=== PATIENT | female | born 1975 | race Caucasian/White ===

== ENCOUNTER 2017-03-13 08:34 | Emergency (ER) | payer SELFPAY ==
[2017-03-13 09:17] VITALS: BP 155/105
--- NOTE | 2017-03-13 09:43 | Emergency Department Report ---
Entered by RJ HYATT, acting as scribe for GIORGI PLAZA NP. Chief Complaint: Nausea/Vomiting/Diarrhea Stated Complaint: BACK PAIN/NAUSEA/VOMITING - HPI History of Present Illness: 41 y/o female, nontoxic, NAD, well developed, c/o back pain beginning 3 days ago. Associated nausea, vomiting. - ROS Review of Systems: GENERAL: The patient is a well-developed, well-nourished male in no apparent distress. Patient is alert and oriented x3. ABDOMEN: Soft, nontender, and nondistended. Positive bowel sounds. No hepatosplenomegaly was noted. No guarding or rebound tenderness. BACK: No spinal tenderness, Left CV tenderness, Right CVA tenderness - Exam Vital Signs: Vital Signs 03/13/17 09:12 Temperature 98.5 F Pulse Rate 99 H Respiratory 18 Rate Blood Pressure 155/105 O2 Sat by Pulse 100 Oximetry MSE screening note: Focused history and physical exam performed. Due to findings the following was ordered: UA, CBC, BMP, Serum test ED Disposition for MSE Condition: Stable This documentation as recorded by the scribe,RJ HYATT,accurately reflects the service I personally performed and the decisions made by ,GIORGI PLAZA, SUSAN.
== END 2017-03-13 09:15 | disposition left against medical advice (07) ==
LOC: ED 08:34
DX: M54.9 Dorsalgia, unspecified (principal); R11.2 Nausea with vomiting, unspecified; Z53.21 Procedure and treatment not carried out due to patient leaving prior to being seen by health care provider

== ENCOUNTER 2017-07-05 17:43 | Emergency (ER) | payer MEDICAID | END 2017-07-05 18:00 | disposition left against medical advice (07) | LOC: ED 17:43 | DX: R10.9 Unspecified abdominal pain (principal); R11.2 Nausea with vomiting, unspecified; Z53.21 Procedure and treatment not carried out due to patient leaving prior to being seen by health care provider ==

== ENCOUNTER 2017-07-27 05:55 | Emergency (ER) | payer MEDICAID ==
[2017-07-27] MEDS ORDERED: NACL 0.9% 1000 ML 1,000 ML IV ONE (07:21)
[2017-07-27] MEDS ORDERED: DILAUDID IV ONE ×3 (07:24→15:10)
--- NOTE | 2017-07-27 07:27 | Emergency Department Report ---
ED N/V/D HPI - General Chief complaint: Abdominal Pain Stated complaint: ABD PAIN, BACK PAIN, N/V Time Seen by Provider: 07/27/17 06:57 Source: patient Mode of arrival: Ambulatory Limitations: No Limitations - History of Present Illness Initial comments: 41-year-old female presents emergency department with complaint of abdominal pain. Patient is a morbidly obese female with a history of multiple medical problems here with chronic back pain and nausea vomiting. Patient states she's been unable to take any of her medications for the last 2 days her pain has been getting worse. Denies fevers chills. States that she's uncomfortable. MD complaint: nausea, vomiting -: Gradual Description of Vomiting: food contents Description of Diarrhea: water Associated Abdominal Pain: No (back pain) Radiation: none Improves with: none Worsens with: none Associated Symptoms: nausea/vomiting. denies: myalgias, chest pain, cough, diaphoresis, headaches, loss of appetite, malaise, rash, syncope - Related Data Home Medications Medication Instructions Recorded Confirmed Last Taken Lisinopril [Zestril TAB] 10 mg PO QDAY 05/19/14 11/24/16 05/18/14 Insulin NPH Hum/Reg Insulin Hm 30 unit SQ QAM 10/05/15 11/24/16 Unknown [HumuLIN 70-30 Vial] Insulin NPH Hum/Reg Insulin Hm 40 unit SQ QPM 10/05/15 11/24/16 Unknown [HumuLIN 70-30 Vial] Sertraline [Zoloft] 100 mg PO QDAY 10/05/15 11/24/16 Unknown methOCARBAMOL [Robaxin TAB] 500 mg PO BID 07/18/16 11/24/16 Unknown Previous Rx's Medication Instructions Recorded Last Taken Type Pantoprazole [Protonix TAB] 40 mg PO QDAY #30 tablet 09/06/16 Unknown Rx Labetalol [Normodyne TAB] 100 mg PO BID #60 tablet 09/09/16 Unknown Rx Ondansetron [Zofran Odt] 4 mg PO Q6H #14 tabdar 09/09/16 Unknown Rx Metoclopramide [Reglan] 10 mg PO TID PRN #20 tab 09/13/16 Unknown Rx Omeprazole Magnesium [PriLOSEC Otc] 20 mg PO QDAY #14 tablet 12/09/16 Unknown Rx Dicyclomine [Bentyl] 20 mg PO QID #30 tablet 01/28/17 Unknown Rx Promethazine [Phenergan TAB] 25 mg PO Q8HR PRN #20 tab 01/28/17 Unknown Rx Ondansetron [Zofran Odt] 4 mg PO Q6H #14 tab.rapdis 02/11/17 Unknown Rx ALBUTEROL NEB's [Proventil 0.083% 2.5 mg IH Q3HRT PRN #30 nebu 04/11/17 Unknown Rx NEBS] Insulin Aspart [NovoLOG Flexpen] 1 dose SQ AC #1 pen 04/11/17 Unknown Rx Insulin Detemir [Levemir] 5 units SUB-Q QAMDIAB #30 units 04/11/17 Unknown Rx Ondansetron [Zofran Oral Liq] 4 mg PO Q4H PRN #1 bottle 04/11/17 Unknown Rx Sodium Bicarbonate 650 mg PO BID #60 tablet 04/11/17 Unknown Rx oxyCODONE /ACETAMINOPHEN [Percocet 1 tab PO Q4H PRN #30 tablet 04/11/17 Unknown Rx 5/325 mg] Promethazine [Phenergan TAB] 25 mg PO Q6HR PRN #10 tab 07/27/17 Unknown Rx Allergies Allergy/AdvReac Type Severity Reaction Status Date / Time ketorolac tromethamine Allergy Unknown Verified 04/02/17 19:46 [From Toradol] meperidine HCl [From Demerol] Allergy Shortness Verified 04/02/17 19:46 of Breath ED Review of Systems ROS: Stated complaint: ABD PAIN, BACK PAIN, N/V Other details as noted in HPI Comment: All other systems reviewed and negative Constitutional: denies: chills, fever ENT: denies: ear pain, throat pain Respiratory: denies: cough, shortness of breath, wheezing Cardiovascular: denies: chest pain, palpitations Endocrine: no symptoms reported Gastrointestinal: denies: abdominal pain, nausea, diarrhea Genitourinary: denies: urgency, dysuria, discharge Musculoskeletal: denies: back pain, joint swelling, arthralgia Skin: denies: rash, lesions Neurological: denies: headache, weakness, paresthesias Psychiatric: denies: anxiety, depression Hematological/Lymphatic: denies: easy bleeding, easy bruising ED Past Medical Hx - Past Medical History Previous Medical History?: Yes Hx Hypertension: Yes Hx CVA: No Hx Heart Attack/AMI: No Hx Congestive Heart Failure: Yes Hx Diabetes: Yes Hx Deep Vein Thrombosis: No Hx Pulmonary Embolism: No Hx GERD: No Hx Liver Disease: No Hx Renal Disease: No Hx Sickle Cell Disease: No Hx Arthritis: No Hx Headaches / Migraines: No Hx Seizures: No Hx Kidney Stones: No Hx Psychiatric Treatment: No Hx Asthma: Yes Hx COPD: No Hx Dementia: No Hx HIV: No Additional medical history: spina bifida, Gastroparesis. obesity - Surgical History Past Surgical History?: Yes Hx Coronary Stent: No Hx Open Heart Surgery: No Hx Pacemaker: No Hx Internal Defibrillator: No Hx Cholecystectomy: Yes Hx Appendectomy: Yes Hx Breast Surgery: Yes (breast reduction) Additional Surgical History: Right chest port - Family History Family history: no significant - Social History Smoking Status: Never Smoker Substance Use Type: None - Medications Home Medications: Home Medications Medication Instructions Recorded Confirmed Last Taken Type Lisinopril [Zestril TAB] 10 mg PO QDAY 05/19/14 11/24/16 05/18/14 History Insulin NPH Hum/Reg Insulin Hm 30 unit SQ QAM 10/05/15 11/24/16 Unknown History [HumuLIN 70-30 Vial] Insulin NPH Hum/Reg Insulin Hm 40 unit SQ QPM 10/05/15 11/24/16 Unknown History [HumuLIN 70-30 Vial] Sertraline [Zoloft] 100 mg PO QDAY 10/05/15 11/24/16 Unknown History methOCARBAMOL [Robaxin TAB] 500 mg PO BID 07/18/16 11/24/16 Unknown History Pantoprazole [Protonix TAB] 40 mg PO QDAY #30 tablet 09/06/16 11/24/16 Unknown Rx Labetalol [Normodyne TAB] 100 mg PO BID #60 tablet 09/09/16 11/24/16 Unknown Rx Ondansetron [Zofran Odt] 4 mg PO Q6H #14 tabRafaelrapdis 09/09/16 11/24/16 Unknown Rx Metoclopramide [Reglan] 10 mg PO TID PRN #20 tab 09/13/16 11/24/16 Unknown Rx Omeprazole Magnesium [PriLOSEC Otc] 20 mg PO QDAY #14 tablet 12/09/16 Unknown Rx Dicyclomine [Bentyl] 20 mg PO QID #30 tablet 01/28/17 Unknown Rx Promethazine [Phenergan TAB] 25 mg PO Q8HR PRN #20 tab 01/28/17 Unknown Rx Ondansetron [Zofran Odt] 4 mg PO Q6H #14 tab.rapdis 02/11/17 Unknown Rx ALBUTEROL NEB's [Proventil 0.083% 2.5 mg IH Q3HRT PRN #30 nebu 04/11/17 Unknown Rx NEBS] Insulin Aspart [NovoLOG Flexpen] 1 dose SQ AC #1 pen 04/11/17 Unknown Rx Insulin Detemir [Levemir] 5 units SUB-Q QAMDIAB #30 units 04/11/17 Unknown Rx Ondansetron [Zofran Oral Liq] 4 mg PO Q4H PRN #1 bottle 04/11/17 Unknown Rx Sodium Bicarbonate 650 mg PO BID #60 tablet 04/11/17 Unknown Rx oxyCODONE /ACETAMINOPHEN [Percocet 1 tab PO Q4H PRN #30 tablet 04/11/17 Unknown Rx 5/325 mg] Promethazine [Phenergan TAB] 25 mg PO Q6HR PRN #10 tab 07/27/17 Unknown Rx ED Physical Exam - General Limitations: No Limitations General appearance: obese - Head Head exam: Present: atraumatic, normocephalic - Eye Eye exam: Present: normal appearance - ENT ENT exam: Present: mucous membranes moist - Neck Neck exam: Present: normal inspection - Respiratory Respiratory exam: Present: normal lung sounds bilaterally. Absent: respiratory distress, wheezes, rales - Cardiovascular Cardiovascular Exam: Present: regular rate, normal rhythm, normal heart sounds. Absent: systolic murmur, diastolic murmur, rubs, gallop - GI/Abdominal GI/Abdominal exam: Present: soft, distended, guarding, normal bowel sounds. Absent: tenderness, rebound, rigid - Extremities Exam Extremities exam: Present: normal inspection - Back Exam Back exam: Present: normal inspection - Neurological Exam Neurological exam: Present: alert, oriented X3 - Psychiatric Psychiatric exam: Present: normal affect, normal mood - Skin Skin exam: Present: warm, dry, intact, normal color. Absent: rash ED Course Vital Signs 07/27/17 07/27/17 07/27/17 06:00 07:50 08:00 Temperature 98.4 F 98.2 F Pulse Rate 89 100 H 112 H Respiratory 20 12 18 Rate Blood Pressure Blood Pressure 184/109 224/129 [Right] O2 Sat by Pulse 100 98 99 Oximetry 07/27/17 07/27/17 07/27/17 08:01 08:07 08:15 Temperature Pulse Rate 110 H 114 H Respiratory 12 18 13 Rate Blood Pressure 224/129 187/151 Blood Pressure [Right] O2 Sat by Pulse 100 100 100 Oximetry 07/27/17 07/27/17 07/27/17 08:31 08:45 09:00 Temperature Pulse Rate 95 H 94 H 91 H Respiratory 8 L 22 18 Rate Blood Pressure 170/108 170/108 144/86 Blood Pressure [Right] O2 Sat by Pulse 100 98 97 Oximetry 07/27/17 07/27/17 09:15 09:30 Temperature Pulse Rate 90 104 H Respiratory 17 11 L Rate Blood Pressure 144/86 156/127 Blood Pressure [Right] O2 Sat by Pulse 97 99 Oximetry ED Medical Decision Making - Lab Data Result diagrams: 07/27/17 13:27 07/27/17 13:27 Laboratory Results - last 24 hr 07/27/17 07/27/17 07/27/17 10:18 13:27 13:27 WBC 5.6 RBC 2.56 L Hgb 8.1 L Hct 24.8 L MCV 97 MCH 32 MCHC 33 RDW 17.0 H Plt Count 327 Lymph % (Auto) 27.2 [place] % (Auto) 5.8 Eos % (Auto) 1.0 Baso % (Auto) 0.2 Lymph # 1.5 [place] # 0.3 Eos # 0.1 Baso # 0.0 Seg Neutrophils % 65.8 Seg Neutrophils # 3.7 Sodium 142 Potassium 4.0 Chloride 106.4 Carbon Dioxide 24 Anion Gap 16 BUN 5 L Creatinine 1.1 Estimated GFR > 60 BUN/Creatinine Ratio 5 Glucose 109 H Lactic Acid Calcium 8.7 Total Bilirubin 0.20 Direct Bilirubin Indirect Bilirubin AST 9 ALT 7 Alkaline Phosphatase 91 Total Protein 6.6 Albumin 3.5 L Albumin/Globulin Ratio 1.1 Lipase 11 L HCG, Qual Urine Color Yellow Urine Turbidity Clear Urine pH 5.0 Ur Specific [place] 1.021 Urine Protein <15 mg/dl Urine Glucose (UA) Neg Urine Ketones Neg Urine Blood Neg Urine Nitrite Neg Urine Bilirubin Neg Urine Urobilinogen < 2.0 Ur Leukocyte Esterase Neg Urine WBC (Auto) 6.0 Urine RBC (Auto) 12.0 U Epithel Cells (Auto) 3.0 Urine Mucus Few 07/27/17 07/27/17 07/27/17 13:27 13:27 13:27 WBC RBC Hgb Hct MCV MCH MCHC RDW Plt Count Lymph % (Auto) [place] % (Auto) Eos % (Auto) Baso % (Auto) Lymph # [place] # Eos # Baso # Seg Neutrophils % Seg Neutrophils # Sodium Potassium Chloride Carbon Dioxide Anion Gap BUN Creatinine Estimated GFR BUN/Creatinine Ratio Glucose Lactic Acid 0.70 Calcium Total Bilirubin 0.20 Direct Bilirubin < 0.2 Indirect Bilirubin 0.0 AST 9 ALT 7 Alkaline Phosphatase 91 Total Protein 6.5 Albumin 3.4 L Albumin/Globulin Ratio 1.1 Lipase HCG, Qual Negative Urine Color Urine Turbidity Urine pH Ur Specific [place] Urine Protein Urine Glucose (UA) Urine Ketones Urine Blood Urine Nitrite Urine Bilirubin Urine Urobilinogen Ur Leukocyte Esterase Urine WBC (Auto) Urine RBC (Auto) U Epithel Cells (Auto) Urine Mucus - Medical Decision Making Morbidly obese 41-year-old female presents emergency Department with abdominal pain back pain nausea vomiting. Patient hasn't been able to take her meds for the last 2 days. Plenty treat her with IV pain meds IV fluids and IV antiemetics and will reassess after labs. At this point I do not feel the patient needs any advanced imaging. Patient's pain improved after 3 rounds of medication. Labs are at baseline. Plan to discharge patient home. She is comfortable with plan. Portions of this chart were dictated with dictation software. There may be dictation errors contained within this note. Critical care attestation.: If time is entered above; I have spent that time in minutes in the direct care of this critically ill patient, excluding procedure time. ED Disposition Clinical Impression: Nausea and vomiting in adult Disposition: DC-01 TO HOME OR SELFCARE Is pt being admited?: No Condition: Stable Instructions: Abdominal Pain (ED) Prescriptions: Promethazine [Phenergan TAB] 25 mg PO Q6HR PRN #10 tab PRN Reason: Nausea Referrals: PRIMARY CARE, [Primary Care Provider] - 3-5 Days
[2017-07-27] MEDS ORDERED: BENADRYL ONE ×2 (08:11→15:16)
[2017-07-27] MEDS: ZOFRAN IV PRN ×2 (08:15→15:30)
[2017-07-27] MEDS ORDERED: BENADRYL IV ONE ×2 (08:20→15:10)
[2017-07-27] MEDS ORDERED: TRIPLE ANTIBIOTIC TP ONE (10:13)
[2017-07-27 11:52] LABS: Bilirubin,Urine NEG (Negative); Blood,Urine NEG (Negative); Ketones,Urine NEG (Negative); Leukocyte Esterase,Urine NEG (Negative); Mucus,Urine FEW /HPF; Nitrite,Urine NEG (Negative); Protein,Urine <15 mg/dL mg/dL (Negative); Urobilinogen,Urine < 2.0 mg/dL (<2.0)
[2017-07-27 13:51] LABS: Basophils % (Auto) 0.2 % (0.0-1.8); Hematocrit 24.8 % (30.3-42.9); Hemoglobin 8.1 gm/dl (10.1-14.3); Mean Corpuscular HGB Conc 33 % (30-34); Mean Corpuscular Hemoglobin 32 pg (28-32); Mean Corpuscular Volume 97 fl (79-97); Platelet Count 327 K/mm3 (140-440); Red Blood Count 2.56 M/mm3 (3.65-5.03); White Blood Count 5.6 K/mm3 (4.5-11.0)
[2017-07-27 14:09] LABS: Alanine Aminotransferase 7 units/L (7-56); Albumin 3.4 g/dL (3.9-5); Albumin/Globulin Ratio 1.1 %; Alkaline Phosphatase 91 units/L (35-129); Total Protein 6.5 g/dL (6.3-8.2)
[2017-07-27 14:10] LABS: Bilirubin,Direct < 0.2 mg/dL (0-0.2)
[2017-07-27 14:11] LABS: Alanine Aminotransferase 7 units/L (7-56); Albumin 3.5 g/dL (3.9-5); Albumin/Globulin Ratio 1.1 %; Alkaline Phosphatase 91 units/L (35-129); Anion Gap 16 mmol/L; BUN/Creatinine Ratio 5; Blood Urea Nitrogen 5 mg/dL (7-17); Calcium 8.7 mg/dL (8.4-10.2); Carbon Dioxide 24 mmol/L (22-30); Chloride 106.4 mmol/L (98-107); Glucose 109 mg/dL (65-100); Lipase 11 units/L (13-60); Sodium 142 mmol/L (137-145); Total Protein 6.6 g/dL (6.3-8.2)
[2017-07-27] MEDS ORDERED: ZOFRAN IM ONE (15:10)
[2017-07-27] MEDS ORDERED: DILAUDID ONE (15:16)
[2017-07-27 16:35] VITALS: BP 138/82
== END 2017-07-27 16:45 | disposition home or self-care (01) ==
LOC: ED 05:55
DX: R11.2 Nausea with vomiting, unspecified (principal); I10 Essential (primary) hypertension; E11.9 Type 2 diabetes mellitus without complications; I50.9 Heart failure, unspecified; J45.909 Unspecified asthma, uncomplicated; E66.9 Obesity, unspecified; Z90.49 Acquired absence of other specified parts of digestive tract; Z88.8 Allergy status to other drugs, medicaments and biological substances
CPT/HCPCS: 36415; 80053; 80074; 81001; 82140; 83690; 84703; 85025; 96361; 96374; 96375; 96376; 99283; J1170; J1200; J2405; J7030; A6250

== ENCOUNTER 2017-08-09 09:00 | Emergency (ER) | payer MEDICAID ==
[2017-08-09 09:37] LABS: Basophils % (Auto) 0.1 % (0.0-1.8); Eosinophils % (Auto) 1.4 % (0.0-4.3); Hematocrit 26.8 % (30.3-42.9); Hemoglobin 8.7 gm/dl (10.1-14.3); Mean Corpuscular HGB Conc 32 % (30-34); Mean Corpuscular Hemoglobin 31 pg (28-32); Mean Corpuscular Volume 97 fl (79-97); Platelet Count 261 K/mm3 (140-440); Red Blood Count 2.76 M/mm3 (3.65-5.03); Red Cell Distribution Width 15.9 % (13.2-15.2); White Blood Count 5.6 K/mm3 (4.5-11.0)
[2017-08-09 09:50] LABS: Anion Gap 14 mmol/L; BUN/Creatinine Ratio 10; Blood Urea Nitrogen 11 mg/dL (7-17); Calcium 8.8 mg/dL (8.4-10.2); Carbon Dioxide 27 mmol/L (22-30); Chloride 100.4 mmol/L (98-107); Glucose 158 mg/dL (65-100); Potassium 4.1 mmol/L (3.6-5.0); Sodium 137 mmol/L (137-145)
[2017-08-09] MEDS ORDERED: DILAUDID IV ONE ×2 (12:21→14:23)
[2017-08-09] MEDS ORDERED: ZOFRAN IV ONE (12:21)
[2017-08-09] MEDS ORDERED: BENADRYL IV ONE (12:21)
--- NOTE | 2017-08-09 12:22 | Emergency Department Report ---
ED General Adult HPI - General Chief complaint: Nausea/Vomiting/Diarrhea Stated complaint: NAUSEA AND VOMITING,BACK PAIN Time Seen by Provider: 08/09/17 12:20 Source: patient Mode of arrival: Ambulatory Limitations: No Limitations - History of Present Illness Initial comments: Patient is a 41-year-old female past history of GERD, diabetes, hypertension morbid obesity who presents with severe lower back pain. Patient walked into the emergency department complaining of severe back pain. She states that her back pain has been worse since 08/03/2017. She says the back pain is severe it as a 10 out of 10. She also states that she's been nauseous and has been vomiting with this back pain. She states that the back pain radiates down both of her legs bilaterally nothing makes the back pain better or worse. She says symptoms have been ongoing on gradually for the last couple days. But now she states that pain is unbearable. Severity scale (0 -10): 10 - Related Data Home Medications Medication Instructions Recorded Confirmed Last Taken Lisinopril [Zestril TAB] 10 mg PO QDAY 05/19/14 11/24/16 05/18/14 Insulin NPH Hum/Reg Insulin Hm 30 unit SQ QAM 10/05/15 11/24/16 Unknown [HumuLIN 70-30 Vial] Insulin NPH Hum/Reg Insulin Hm 40 unit SQ QPM 10/05/15 11/24/16 Unknown [HumuLIN 70-30 Vial] Sertraline [Zoloft] 100 mg PO QDAY 10/05/15 11/24/16 Unknown methOCARBAMOL [Robaxin TAB] 500 mg PO BID 07/18/16 11/24/16 Unknown Previous Rx's Medication Instructions Recorded Last Taken Type Pantoprazole [Protonix TAB] 40 mg PO QDAY #30 tablet 09/06/16 Unknown Rx Labetalol [Normodyne TAB] 100 mg PO BID #60 tablet 09/09/16 Unknown Rx Ondansetron [Zofran Odt] 4 mg PO Q6H #14 tabdar 09/09/16 Unknown Rx Metoclopramide [Reglan] 10 mg PO TID PRN #20 tab 09/13/16 Unknown Rx Omeprazole Magnesium [PriLOSEC Otc] 20 mg PO QDAY #14 tablet 12/09/16 Unknown Rx Dicyclomine [Bentyl] 20 mg PO QID #30 tablet 01/28/17 Unknown Rx Promethazine [Phenergan TAB] 25 mg PO Q8HR PRN #20 tab 01/28/17 Unknown Rx Ondansetron [Zofran Odt] 4 mg PO Q6H #14 tab.rapdis 02/11/17 Unknown Rx ALBUTEROL NEB's [Proventil 0.083% 2.5 mg IH Q3HRT PRN #30 nebu 04/11/17 Unknown Rx NEBS] Insulin Aspart [NovoLOG Flexpen] 1 dose SQ AC #1 pen 04/11/17 Unknown Rx Insulin Detemir [Levemir] 5 units SUB-Q QAMDIAB #30 units 04/11/17 Unknown Rx Ondansetron [Zofran Oral Liq] 4 mg PO Q4H PRN #1 bottle 04/11/17 Unknown Rx Sodium Bicarbonate 650 mg PO BID #60 tablet 04/11/17 Unknown Rx oxyCODONE /ACETAMINOPHEN [Percocet 1 tab PO Q4H PRN #30 tablet 04/11/17 Unknown Rx 5/325 mg] Promethazine [Phenergan TAB] 25 mg PO Q6HR PRN #10 tab 07/27/17 Unknown Rx Promethazine [Phenergan TAB] 25 mg PO Q6HR PRN #30 tab 08/09/17 Unknown Rx Allergies Allergy/AdvReac Type Severity Reaction Status Date / Time ketorolac tromethamine Allergy Unknown Verified 04/02/17 19:46 [From Toradol] meperidine HCl [From Demerol] Allergy Shortness Verified 04/02/17 19:46 of Breath ED Review of Systems ROS: Stated complaint: NAUSEA AND VOMITING,BACK PAIN Other details as noted in HPI Constitutional: denies: chills, fever Eyes: denies: eye pain, eye discharge, vision change ENT: denies: ear pain, throat pain Respiratory: denies: cough, shortness of breath, wheezing Cardiovascular: denies: chest pain, palpitations Endocrine: no symptoms reported Gastrointestinal: nausea, vomiting, diarrhea Genitourinary: denies: urgency, dysuria, discharge Musculoskeletal: back pain Skin: denies: rash, lesions Neurological: denies: headache, weakness, paresthesias Psychiatric: denies: anxiety, depression Hematological/Lymphatic: denies: easy bleeding, easy bruising ED Past Medical Hx - Past Medical History Previous Medical History?: Yes Hx Hypertension: Yes Hx CVA: No Hx Heart Attack/AMI: No Hx Congestive Heart Failure: Yes Hx Diabetes: Yes Hx Deep Vein Thrombosis: No Hx Pulmonary Embolism: No Hx GERD: No Hx Liver Disease: No Hx Renal Disease: No Hx Sickle Cell Disease: No Hx Arthritis: No Hx Headaches / Migraines: No Hx Seizures: No Hx Kidney Stones: No Hx Psychiatric Treatment: No Hx Asthma: Yes Hx COPD: No Hx Dementia: No Hx HIV: No Additional medical history: spina bifida, Gastroparesis. obesity - Surgical History Past Surgical History?: Yes Hx Coronary Stent: No Hx Open Heart Surgery: No Hx Pacemaker: No Hx Internal Defibrillator: No Hx Cholecystectomy: Yes Hx Appendectomy: Yes Hx Breast Surgery: Yes (breast reduction) Additional Surgical History: Right chest port-discontinued - Social History Smoking Status: Never Smoker Substance Use Type: None - Medications Home Medications: Home Medications Medication Instructions Recorded Confirmed Last Taken Type Lisinopril [Zestril TAB] 10 mg PO QDAY 05/19/14 11/24/16 05/18/14 History Insulin NPH Hum/Reg Insulin Hm 30 unit SQ QAM 10/05/15 11/24/16 Unknown History [HumuLIN 70-30 Vial] Insulin NPH Hum/Reg Insulin Hm 40 unit SQ QPM 10/05/15 11/24/16 Unknown History [HumuLIN 70-30 Vial] Sertraline [Zoloft] 100 mg PO QDAY 10/05/15 11/24/16 Unknown History methOCARBAMOL [Robaxin TAB] 500 mg PO BID 07/18/16 11/24/16 Unknown History Pantoprazole [Protonix TAB] 40 mg PO QDAY #30 tablet 09/06/16 11/24/16 Unknown Rx Labetalol [Normodyne TAB] 100 mg PO BID #60 tablet 09/09/16 11/24/16 Unknown Rx Ondansetron [Zofran Odt] 4 mg PO Q6H #14 tabRafaelrapdis 09/09/16 11/24/16 Unknown Rx Metoclopramide [Reglan] 10 mg PO TID PRN #20 tab 09/13/16 11/24/16 Unknown Rx Omeprazole Magnesium [PriLOSEC Otc] 20 mg PO QDAY #14 tablet 12/09/16 Unknown Rx Dicyclomine [Bentyl] 20 mg PO QID #30 tablet 01/28/17 Unknown Rx Promethazine [Phenergan TAB] 25 mg PO Q8HR PRN #20 tab 01/28/17 Unknown Rx Ondansetron [Zofran Odt] 4 mg PO Q6H #14 tab.rapdis 02/11/17 Unknown Rx ALBUTEROL NEB's [Proventil 0.083% 2.5 mg IH Q3HRT PRN #30 nebu 04/11/17 Unknown Rx NEBS] Insulin Aspart [NovoLOG Flexpen] 1 dose SQ AC #1 pen 04/11/17 Unknown Rx Insulin Detemir [Levemir] 5 units SUB-Q QAMDIAB #30 units 04/11/17 Unknown Rx Ondansetron [Zofran Oral Liq] 4 mg PO Q4H PRN #1 bottle 04/11/17 Unknown Rx Sodium Bicarbonate 650 mg PO BID #60 tablet 04/11/17 Unknown Rx oxyCODONE /ACETAMINOPHEN [Percocet 1 tab PO Q4H PRN #30 tablet 04/11/17 Unknown Rx 5/325 mg] Promethazine [Phenergan TAB] 25 mg PO Q6HR PRN #10 tab 07/27/17 Unknown Rx Promethazine [Phenergan TAB] 25 mg PO Q6HR PRN #30 tab 08/09/17 Unknown Rx ED Physical Exam - General Limitations: No Limitations General appearance: in distress - Head Head exam: Present: atraumatic, normocephalic - Eye Eye exam: Present: normal appearance - ENT ENT exam: Present: mucous membranes moist - Neck Neck exam: Present: normal inspection - Respiratory Respiratory exam: Present: normal lung sounds bilaterally. Absent: respiratory distress - Cardiovascular Cardiovascular Exam: Present: regular rate, normal rhythm. Absent: systolic murmur, diastolic murmur, rubs, gallop - GI/Abdominal GI/Abdominal exam: Present: soft, normal bowel sounds - Extremities Exam Extremities exam: Present: normal inspection - Back Exam Back exam: Present: muscle spasm, paraspinal tenderness - Neurological Exam Neurological exam: Present: alert, oriented X3 - Psychiatric Psychiatric exam: Present: normal affect, normal mood - Skin Skin exam: Present: warm, dry, intact, normal color. Absent: rash ED Course Vital Signs 08/09/17 08/09/17 08/09/17 09:09 11:56 12:00 Temperature 98 F Pulse Rate 80 77 Respiratory 20 12 9 L Rate Blood Pressure 133/78 124/103 Blood Pressure [Right] O2 Sat by Pulse 100 Oximetry 08/09/17 08/09/17 08/09/17 12:12 12:16 12:30 Temperature 97.9 F Pulse Rate 85 85 89 Respiratory 24 18 12 Rate Blood Pressure 174/116 174/116 Blood Pressure 174/116 [Right] O2 Sat by Pulse 100 100 95 Oximetry 08/09/17 08/09/17 08/09/17 12:46 12:50 13:00 Temperature Pulse Rate 81 81 Respiratory 16 15 Rate Blood Pressure 174/116 174/116 Blood Pressure 144/86 [Right] O2 Sat by Pulse 98 98 Oximetry 08/09/17 08/09/17 08/09/17 13:16 13:30 13:46 Temperature Pulse Rate 78 80 79 Respiratory 15 16 13 Rate Blood Pressure 111/62 107/61 107/61 Blood Pressure [Right] O2 Sat by Pulse 97 96 100 Oximetry 08/09/17 08/09/17 08/09/17 14:00 14:18 15:15 Temperature 98.1 F Pulse Rate 76 79 Respiratory 12 19 19 Rate Blood Pressure 112/65 Blood Pressure 123/60 [Right] O2 Sat by Pulse 98 100 99 Oximetry - Reevaluation(s) Reevaluation #1: 08/09/17 15:57 Patient is better after second dose of Dilaudid I will send patient home with Phenergan discussed outpatient sugars upon. ED Medical Decision Making - Lab Data Result diagrams: 08/09/17 09:20 08/09/17 09:20 Labs 08/09/17 08/09/17 08/09/17 09:20 09:20 09:23 WBC 5.6 RBC 2.76 L Hgb 8.7 L Hct 26.8 L MCV 97 MCH 31 MCHC 32 RDW 15.9 H Plt Count 261 Lymph % (Auto) 25.0 [place] % (Auto) 6.0 Eos % (Auto) 1.4 Baso % (Auto) 0.1 Lymph # 1.4 [place] # 0.3 Eos # 0.1 Baso # 0.0 Seg Neutrophils % 67.5 Seg Neutrophils # 3.8 Sodium 137 Potassium 4.1 Chloride 100.4 Carbon Dioxide 27 Anion Gap 14 BUN 11 Creatinine 1.1 Estimated GFR > 60 BUN/Creatinine Ratio 10 Glucose 158 H POC Glucose 185 H Calcium 8.8 - Medical Decision Making Medical diagnosis: Lumbar sacral strain Differential diagnosis: Metabolic abnormality, pancreatitis, malingering, herniated disc I will give patient IV Dilaudid and IV Benadryl and CBC and CMP Patient's lab work is unremarkable patient's request another dose of IV Dilaudid and IV Benadryl. I will only give IV Dilaudid discussed with patient that she will need to go assess her symptoms are intermittent and not consistent with her history. I will send patient home with by mouth clinic. Patient agrees to plan an additional verbal discharge orders were given. Critical care attestation.: If time is entered above; I have spent that time in minutes in the direct care of this critically ill patient, excluding procedure time. 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 control service representative use Qualified Code(s): E11.9 - Type 2 diabetes mellitus without complications Obesity Qualifiers: Obesity type: due to excess calories Obesity classification: adult class 3 ( BMI >= 40) Serious obesity comorbidity presence: with serious comorbidity Body mass index: BMI 50.0-59.9 Qualified Code(s): E66.09 - Other obesity due to excess calories Disposition: DC-01 TO HOME OR SELFCARE Is pt being admited?: No Does the pt Need Aspirin: No Condition: Stable Instructions: Diabetes Mellitus Type 2 in Adults (ED), Low Back Strain (ED) Prescriptions: Promethazine [Phenergan TAB] 25 mg PO Q6HR PRN #30 tab PRN Reason: Nausea Referrals: PRIMARY CARE, [Primary Care Provider] - 3-5 Days
[2017-08-09 15:16] VITALS: BP 123/60
== END 2017-08-09 15:22 | disposition home or self-care (01) ==
LOC: ED 09:00
DX: M54.42 Lumbago with sciatica, left side (principal); R11.2 Nausea with vomiting, unspecified; E11.9 Type 2 diabetes mellitus without complications; E66.09 Other obesity due to excess calories; I10 Essential (primary) hypertension; J45.909 Unspecified asthma, uncomplicated; Z90.49 Acquired absence of other specified parts of digestive tract; Z79.4 Long term (current) use of insulin
CPT/HCPCS: 36415; 80048; 82962; 85025; 96374; 96375; 96376; 99283; J1170; J1200; J2405

== ENCOUNTER 2017-08-12 03:46 | Emergency (ER) | payer MEDICAID ==
[2017-08-12 04:01] VITALS: BP 176/93
[2017-08-12 06:39] LABS: Bilirubin,Urine NEG (Negative); Blood,Urine NEG (Negative); Ketones,Urine 20 mg/dL (Negative); Leukocyte Esterase,Urine NEG (Negative); Mucus,Urine FEW /HPF; Nitrite,Urine NEG (Negative); Urobilinogen,Urine < 2.0 mg/dL (<2.0); WBC,Urine < 1.0 /HPF (0.0-6.0)
== END 2017-08-12 04:27 | disposition left against medical advice (07) ==
LOC: ED 03:46
DX: R11.2 Nausea with vomiting, unspecified (principal); M54.5 Low back pain; Z53.21 Procedure and treatment not carried out due to patient leaving prior to being seen by health care provider
CPT/HCPCS: 81001; 82962

== ENCOUNTER 2017-08-13 06:36 | Emergency (ER) | payer MEDICAID | END 2017-08-13 08:21 | LOC: ED 06:36 | DX: R11.11 Vomiting without nausea (principal); M54.9 Dorsalgia, unspecified; Z53.21 Procedure and treatment not carried out due to patient leaving prior to being seen by health care provider ==

== ENCOUNTER 2017-08-16 05:21 | Emergency (ER) | payer MEDICAID ==
[2017-08-16 05:32] VITALS: BP 168/110
[2017-08-16 09:12] LABS: Bacteria,Urine 1+ /HPF (Negative); Bilirubin,Urine NEG (Negative); Blood,Urine LG (Negative); Ketones,Urine NEG (Negative); Leukocyte Esterase,Urine TR (Negative); Mucus,Urine FEW /HPF; Nitrite,Urine NEG (Negative); Urobilinogen,Urine < 2.0 mg/dL (<2.0)
[2017-08-16 09:19] LABS: RBC,Urine > 182.0 /HPF (0.0-6.0)
== END 2017-08-16 05:29 | disposition left against medical advice (07) ==
LOC: ED 05:21
DX: R10.9 Unspecified abdominal pain (principal); Z53.21 Procedure and treatment not carried out due to patient leaving prior to being seen by health care provider
CPT/HCPCS: 81001

== ENCOUNTER 2017-09-12 09:01 | Emergency (ER) | payer MEDICAID ==
[2017-09-12] MEDS ORDERED: BENADRYL IV ONE ×3 (12:06→18:04)
[2017-09-12] MEDS ORDERED: ZOFRAN IV ONE ×2 (12:06→14:29)
[2017-09-12] MEDS ORDERED: DILAUDID IV ONE ×3 (12:06→18:01)
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
[2017-09-12 15:50] LABS: Albumin 3.9 g/dL (3.9-5); Albumin/Globulin Ratio 1.1 %; Alkaline Phosphatase 106 units/L (35-129); Anion Gap 18 mmol/L; BUN/Creatinine Ratio 11; Blood Urea Nitrogen 16 mg/dL (7-17); Calcium 9.5 mg/dL (8.4-10.2); Carbon Dioxide 27 mmol/L (22-30); Chloride 100.4 mmol/L (98-107); Glucose 101 mg/dL (65-100); Lipase 16 units/L (13-60); Potassium 4.2 mmol/L (3.6-5.0); Sodium 141 mmol/L (137-145); Total Protein 7.6 g/dL (6.3-8.2)
[2017-09-12 15:51] LABS: Alanine Aminotransferase < 5 units/L (7-56)
[2017-09-12 15:57] LABS: Basophils % (Auto) 0.3 % (0.0-1.8); Eosinophils % (Auto) 1.1 % (0.0-4.3); Hematocrit 30.1 % (30.3-42.9); Hemoglobin 9.5 gm/dl (10.1-14.3); Mean Corpuscular HGB Conc 32 % (30-34); Mean Corpuscular Hemoglobin 30 pg (28-32); Mean Corpuscular Volume 94 fl (79-97); Platelet Count 269 K/mm3 (140-440); Red Cell Distribution Width 16.9 % (13.2-15.2); White Blood Count 5.6 K/mm3 (4.5-11.0)
[2017-09-12 17:17] VITALS: BP 110/74
== END 2017-09-12 16:25 | disposition home or self-care (01) ==
LOC: ED 09:01
DX: M54.5 Low back pain (principal); G89.29 Other chronic pain; E11.22 Type 2 diabetes mellitus with diabetic chronic kidney disease; I12.9 Hypertensive chronic kidney disease with stage 1 through stage 4 chronic kidney disease, or unspecified chronic kidney disease; N18.9 Chronic kidney disease, unspecified; D64.9 Anemia, unspecified; Z79.4 Long term (current) use of insulin; J45.909 Unspecified asthma, uncomplicated; E66.01 Morbid (severe) obesity due to excess calories; Z90.49 Acquired absence of other specified parts of digestive tract; Z98.890 Other specified postprocedural states; Z88.6 Allergy status to analgesic agent
CPT/HCPCS: 36415; 80053; 82962; 83690; 84703; 85025; 96374; 96375; 96376; 99283; J1170; J1200; J2405

== ENCOUNTER 2017-11-11 15:17 | Emergency (ER) | payer MEDICAID ==
[2017-11-11] MEDS ORDERED: ZOFRAN IV ONE (17:55)
[2017-11-11] MEDS ORDERED: NACL 0.9% 1000 ML 1,000 ML IV ONE ×2 (17:55→22:35)
[2017-11-11 19:35] LABS: Alanine Aminotransferase 8 units/L (7-56); Albumin 4.5 g/dL (3.9-5); BUN/Creatinine Ratio 18; Blood Urea Nitrogen 22 mg/dL (7-17); Calcium 9.5 mg/dL (8.4-10.2); Hemolysis Index 1; Lipase 12 units/L (13-60)
[2017-11-11 19:36] LABS: Basophils % (Auto) 0.4 % (0.0-1.8); Hematocrit 27.7 % (30.3-42.9); Hemoglobin 9.1 gm/dl (10.1-14.3); Lymphocytes # (Auto) 1.1 K/mm3 (1.2-5.4); Lymphocytes % (Auto) 11.2 % (13.4-35.0); Mean Corpuscular HGB Conc 33 % (30-34); Mean Corpuscular Hemoglobin 29 pg (28-32); Mean Corpuscular Volume 89 fl (79-97); Monocytes # (Auto) 0.3 K/mm3 (0.0-0.8); Monocytes % (Auto) 3.4 % (0.0-7.3); Platelet Count 446 K/mm3 (140-440); Red Blood Count 3.11 M/mm3 (3.65-5.03); Red Cell Distribution Width 16.8 % (13.2-15.2)
[2017-11-11] MEDS ORDERED: REGLAN IV ONE (20:31)
[2017-11-11] MEDS ORDERED: DILAUDID IV ONE ×3 (20:31→23:39)
--- NOTE | 2017-11-11 20:34 | Emergency Department Report ---
HPI - General Chief Complaint: Back Pain/Injury Time Seen by Provider: 11/11/17 20:10 - HPI HPI: 41 yo AA Willi presents to the ED via EMS from home with the complaint of a three day history of N/V, and back pain that has also kept her from getting any sleep. She says she usually takes Dilaudid and Benadryl at home but has run out of her pain meds and does not see her pain physician until next sunday. She has a past medical history of CHF, gastroparesis, diabetes, spina bifida. She says that the back pain is from the mid back down. She denies any trauma. She denies any problems with bowel or bladder, numbness or paresthesias or any neurological deficits. No recent travel or sick contacts at home. ED Past Medical Hx - Past Medical History Hx Hypertension: Yes Hx CVA: No Hx Heart Attack/AMI: No Hx Congestive Heart Failure: Yes Hx Diabetes: Yes Hx Deep Vein Thrombosis: No Hx Pulmonary Embolism: No Hx GERD: No Hx Liver Disease: No Hx Renal Disease: No Hx Sickle Cell Disease: No Hx Arthritis: No Hx Headaches / Migraines: No Hx Seizures: No Hx Kidney Stones: No Hx Psychiatric Treatment: No Hx Asthma: Yes Hx COPD: No Hx Dementia: No Hx HIV: No Additional medical history: spina bifida, Gastroparesis. morbid obesity, - Surgical History Hx Coronary Stent: No Hx Open Heart Surgery: No Hx Pacemaker: No Hx Internal Defibrillator: No Hx Cholecystectomy: Yes Hx Appendectomy: Yes Hx Breast Surgery: Yes (breast reduction) Additional Surgical History: Right chest port-discontinued - Social History Smoking Status: Never Smoker Substance Use Type: None - Medications Home Medications: Home Medications Medication Instructions Recorded Confirmed Last Taken Type Lisinopril [Zestril TAB] 10 mg PO QDAY 05/19/14 11/24/16 05/18/14 History Insulin NPH Hum/Reg Insulin Hm 30 unit SQ QAM 10/05/15 11/24/16 Unknown History [HumuLIN 70-30 Vial] Insulin NPH Hum/Reg Insulin Hm 40 unit SQ QPM 10/05/15 11/24/16 Unknown History [HumuLIN 70-30 Vial] Sertraline [Zoloft] 100 mg PO QDAY 10/05/15 11/24/16 Unknown History methOCARBAMOL [Robaxin TAB] 500 mg PO BID 07/18/16 11/24/16 Unknown History Pantoprazole [Protonix TAB] 40 mg PO QDAY #30 tablet 09/06/16 11/24/16 Unknown Rx Labetalol [Normodyne TAB] 100 mg PO BID #60 tablet 09/09/16 11/24/16 Unknown Rx Ondansetron [Zofran Odt] 4 mg PO Q6H #14 tab.rapdis 09/09/16 11/24/16 Unknown Rx Metoclopramide [Reglan] 10 mg PO TID PRN #20 tab 09/13/16 11/24/16 Unknown Rx Omeprazole Magnesium [PriLOSEC Otc] 20 mg PO QDAY #14 tablet. 12/09/16 Unknown Rx Dicyclomine [Bentyl] 20 mg PO QID #30 tablet 01/28/17 Unknown Rx Ondansetron [Zofran Odt] 4 mg PO Q6H #14 tab.rapdis 02/11/17 Unknown Rx ALBUTEROL NEB's [Proventil 0.083% 2.5 mg IH Q3HRT PRN #30 nebu 04/11/17 Unknown Rx NEBS] Insulin Aspart [NovoLOG Flexpen] 1 dose SQ AC #1 pen 04/11/17 Unknown Rx Insulin Detemir [Levemir] 5 units SUB-Q QAMDIAB #30 units 04/11/17 Unknown Rx Ondansetron [Zofran Oral Liq] 4 mg PO Q4H PRN #1 bottle 04/11/17 Unknown Rx Sodium Bicarbonate 650 mg PO BID #60 tablet 04/11/17 Unknown Rx oxyCODONE /ACETAMINOPHEN [Percocet 1 tab PO Q4H PRN #30 tablet 04/11/17 Unknown Rx 5/325 mg] Promethazine [Phenergan TAB] 25 mg PO Q6HR PRN #10 tab 07/27/17 Unknown Rx Promethazine [Phenergan TAB] 25 mg PO Q6HR PRN #30 tab 08/09/17 Unknown Rx Promethazine [Phenergan TAB] 25 mg PO Q6HR PRN #30 tab 09/12/17 Unknown Rx Promethazine [Phenergan TAB] 25 mg PO Q8HR PRN #12 tab 11/11/17 Unknown Rx ED Review of Systems ROS: Stated complaint: BACK PAIN Other details as noted in HPI Comment: All other systems reviewed and negative Constitutional: denies: chills, fever Eyes: denies: eye pain, eye discharge, vision change ENT: denies: ear pain, throat pain Respiratory: denies: cough, shortness of breath, wheezing Cardiovascular: denies: chest pain, palpitations Gastrointestinal: nausea, vomiting Genitourinary: denies: urgency, dysuria, discharge Musculoskeletal: back pain. denies: arthralgia Skin: denies: rash, lesions Neurological: denies: headache, weakness, paresthesias Physical Exam - Physical Exam Vital Signs: Vital Signs 11/11/17 11/11/17 11/11/17 15:20 17:21 19:02 Pulse Rate 118 H 113 H Respiratory 18 18 Rate Blood Pressure 204/128 Blood Pressure 147/102 [Left] O2 Sat by Pulse 97 100 Oximetry Physical Exam: GENERAL: The patient is well-developed well-nourished. HENT: Normocephalic. Atraumatic. Patient has moist mucous membranes. EYES: Extraocular motions are intact. Pupils equal reactive to light bilaterally. NECK: Supple. Trachea is midline. CHEST/LUNGS: Clear to auscultation. There is no respiratory distress noted. HEART/CARDIOVASCULAR: Regular. There is mild tachycardia. There is no murmur. ABDOMEN: Abdomen is soft, nontender. Patient has normal bowel sounds. Morbidly obese habitus. SKIN: Skin is warm and dry. NEURO: The patient is awake, alert, and oriented. The patient is cooperative. The patient has no focal neurologic deficits. The patient has normal speech. MUSCULOSKELETAL: There is no tenderness or deformity. There is no limitation range of motion. There is no evidence of acute injury. BACK: There is both midline and bilateral paraspinal tenderness to palpation of the lower thoracic and the lumbar back but no step-off, or deformity. ED Course Vital Signs 11/11/17 11/11/17 11/11/17 15:20 17:21 19:02 Pulse Rate 118 H 113 H Respiratory 18 18 Rate Blood Pressure 204/128 Blood Pressure 147/102 [Left] O2 Sat by Pulse 97 100 Oximetry ED Medical Decision Making - Lab Data Result diagrams: 11/11/17 19:00 11/11/17 19:00 - Medical Decision Making Patient presents with a few days of some nausea and vomiting and some back pain. She denies any problems with bowel or bladder, numbness or paresthesias or any neurological deficits. Therefore she is low suspicion for any of the emergent back condition such as cauda equina, epidural abscess or cord compression syndrome. The patient does have a history of gastroparesis but mostly only complains of the nausea and vomiting at this time and none of the abdominal pain. Labs are mostly unremarkable. She has some anemia but it is insistent with previous visits. There is no leukocytosis, electrolyte abnormalities, renal insufficiency or glucose of modalities. She was given some fluid, pain medication and antiemetics and eventually patient says she is feeling improved. Vital signs improved as well and has been stable including being afebrile. Patient was seen ambulatory out of the emergency department and did not show any instability while doing so. She has an appointment with her PCP and pain physician coming up in the next 1-2 days. She will return to the ER with any worsening of her symptoms or any acute distress. - Differential Diagnosis muscle strain, muscle spasm, viral syndrome, food poisoning Critical Care Time: No Critical care attestation.: If time is entered above; I have spent that time in minutes in the direct care of this critically ill patient, excluding procedure time. ED Disposition Clinical Impression: Nausea & vomiting Qualifiers: Vomiting type: unspecified Vomiting Intractability: non-intractable Qualified Code(s): R11.2 - Nausea with vomiting, unspecified Back pain Qualifiers: Back pain location: back pain in unspecified location Chronicity: unspecified Back pain laterality: bilateral Qualified Code(s): M54.9 - Dorsalgia, unspecified Anemia Qualifiers: Anemia type: unspecified type Qualified Code(s): D64.9 - Anemia, unspecified Hypertension Qualifiers: Hypertension type: essential hypertension Qualified Code(s): I10 - Essential ( primary) hypertension Disposition: DC-01 TO HOME OR SELFCARE Is pt being admited?: No Condition: Stable Instructions: Acute Nausea and Vomiting (ED), Back Pain (ED), Hypertension (ED) Additional Instructions: Please follow-up with your primary care physician and pain physician as previously scheduled. Return to the emergency Department with any worsening of your symptoms or any acute distress. Prescriptions: Promethazine [Phenergan TAB] 25 mg PO Q8HR PRN #12 tab PRN Reason: Nausea Referrals: PRIMARY CARE, [Primary Care Provider] - JENNY Time of Disposition: 23:57
[2017-11-11] MEDS ORDERED: BENADRYL ONE (22:32)
[2017-11-11] MEDS ORDERED: NACL 0.9% 1000 ML 1,000 ML ONE (22:33)
[2017-11-11] MEDS ORDERED: DILAUDID ONE (22:33)
[2017-11-11] MEDS ORDERED: BENADRYL IV ONE ×2 (22:35→23:39)
[2017-11-11 23:56] VITALS: BP 140/85
== END 2017-11-12 02:32 | disposition home or self-care (01) ==
LOC: ED 15:17
DX: R11.2 Nausea with vomiting, unspecified (principal); M54.9 Dorsalgia, unspecified; D64.9 Anemia, unspecified; I10 Essential (primary) hypertension; E11.9 Type 2 diabetes mellitus without complications
CPT/HCPCS: 36415; 80053; 83690; 84703; 85025; 93005; 93010; 96361; 96374; 96375; 96376; 99284; J1170; J1200; J2405; J2765; J7030

== ENCOUNTER 2017-11-24 11:37 | Emergency (ER) | payer MEDICAID ==
[2017-11-24] MEDS ORDERED: REGLAN IV ONE (12:01)
[2017-11-24] MEDS ORDERED: DILAUDID IV ONE (12:01)
--- NOTE | 2017-11-24 12:08 | Emergency Department Report ---
ED General Adult HPI - General Stated complaint: BACK PAIN/NAUSEA WEAKNESS Time Seen by Provider: 11/24/17 11:56 - History of Present Illness Initial comments: Patient is 41 years FEMALE morbidly obese, history of diabetes, hypertension, spina bifida. Patient presented to the ER with back pain nausea vomiting and diarrhea. Patient was seen here multiple times for the same complaint that usually resolve with Dilaudid and nausea medicine. Patient stated her symptoms started yesterday. Patient denied any fever, chest pain, headache or abdominal pain. No cough or shortness of breath. -: days(s) Location: back, abdomen Quality: dull Consistency: constant Associated Symptoms: nausea/vomiting. denies: confusion, chest pain, cough, diaphoresis, fever/chills, headaches, loss of appetite, malaise, rash, seizure, shortness of breath, syncope, weakness - Related Data Home Medications Medication Instructions Recorded Confirmed Last Taken Lisinopril [Zestril TAB] 10 mg PO QDAY 05/19/14 11/24/16 05/18/14 Insulin NPH Hum/Reg Insulin Hm 30 unit SQ QAM 10/05/15 11/24/16 Unknown [HumuLIN 70-30 Vial] Insulin NPH Hum/Reg Insulin Hm 40 unit SQ QPM 10/05/15 11/24/16 Unknown [HumuLIN 70-30 Vial] Sertraline [Zoloft] 100 mg PO QDAY 10/05/15 11/24/16 Unknown methOCARBAMOL [Robaxin TAB] 500 mg PO BID 07/18/16 11/24/16 Unknown Previous Rx's Medication Instructions Recorded Last Taken Type Pantoprazole [Protonix TAB] 40 mg PO QDAY #30 tablet 09/06/16 Unknown Rx Labetalol [Normodyne TAB] 100 mg PO BID #60 tablet 09/09/16 Unknown Rx Ondansetron [Zofran Odt] 4 mg PO Q6H #14 tabdar 09/09/16 Unknown Rx Metoclopramide [Reglan] 10 mg PO TID PRN #20 tab 09/13/16 Unknown Rx Omeprazole Magnesium [PriLOSEC Otc] 20 mg PO QDAY #14 tablet. 12/09/16 Unknown Rx Dicyclomine [Bentyl] 20 mg PO QID #30 tablet 01/28/17 Unknown Rx Ondansetron [Zofran Odt] 4 mg PO Q6H #14 tab.rapdis 02/11/17 Unknown Rx ALBUTEROL NEB's [Proventil 0.083% 2.5 mg IH Q3HRT PRN #30 nebu 04/11/17 Unknown Rx NEBS] Insulin Aspart [NovoLOG Flexpen] 1 dose SQ AC #1 pen 04/11/17 Unknown Rx Insulin Detemir [Levemir] 5 units SUB-Q QAMDIAB #30 units 04/11/17 Unknown Rx Ondansetron [Zofran Oral Liq] 4 mg PO Q4H PRN #1 bottle 04/11/17 Unknown Rx Sodium Bicarbonate 650 mg PO BID #60 tablet 04/11/17 Unknown Rx oxyCODONE /ACETAMINOPHEN [Percocet 1 tab PO Q4H PRN #30 tablet 04/11/17 Unknown Rx 5/325 mg] Promethazine [Phenergan TAB] 25 mg PO Q6HR PRN #10 tab 07/27/17 Unknown Rx Promethazine [Phenergan TAB] 25 mg PO Q6HR PRN #30 tab 08/09/17 Unknown Rx Promethazine [Phenergan TAB] 25 mg PO Q6HR PRN #30 tab 09/12/17 Unknown Rx Promethazine [Phenergan TAB] 25 mg PO Q8HR PRN #12 tab 11/11/17 Unknown Rx Ondansetron [Zofran Odt] 8 mg PO Q8HR PRN #14 tab.rapdis 11/24/17 Unknown Rx Promethazine [Phenergan TAB] 25 mg PO Q8HR PRN #30 tab 11/24/17 Unknown Rx oxyCODONE /ACETAMINOPHEN [Percocet 1 tab PO Q6HR PRN #10 tablet 11/24/17 Unknown Rx 5/325] Allergies Allergy/AdvReac Type Severity Reaction Status Date / Time ketorolac tromethamine Allergy Unknown Verified 08/16/17 05:28 [From Toradol] meperidine HCl [From Demerol] Allergy Shortness Verified 08/16/17 05:28 of Breath ED Review of Systems ROS: Stated complaint: BACK PAIN/NAUSEA WEAKNESS Other details as noted in HPI Comment: All other systems reviewed and negative Constitutional: denies: chills, fever Respiratory: denies: cough, orthopnea, shortness of breath Cardiovascular: denies: chest pain, palpitations, dyspnea on exertion, edema, paroxysmal nocturnal dyspnea Gastrointestinal: nausea, vomiting, diarrhea. denies: abdominal pain Genitourinary: denies: urgency, dysuria, frequency Musculoskeletal: back pain. denies: joint swelling, arthralgia Neurological: denies: headache, weakness, numbness, paresthesias, confusion, abnormal gait ED Past Medical Hx - Past Medical History Hx Hypertension: Yes Hx CVA: No Hx Heart Attack/AMI: No Hx Congestive Heart Failure: Yes Hx Diabetes: Yes Hx Deep Vein Thrombosis: No Hx Pulmonary Embolism: No Hx GERD: No Hx Liver Disease: No Hx Renal Disease: No Hx Sickle Cell Disease: No Hx Arthritis: No Hx Headaches / Migraines: No Hx Seizures: No Hx Kidney Stones: No Hx Psychiatric Treatment: No Hx Asthma: Yes Hx COPD: No Hx Dementia: No Hx HIV: No Additional medical history: spina bifida, Gastroparesis. morbid obesity, - Surgical History Hx Coronary Stent: No Hx Open Heart Surgery: No Hx Pacemaker: No Hx Internal Defibrillator: No Hx Cholecystectomy: Yes Hx Appendectomy: Yes Hx Breast Surgery: Yes (breast reduction) Additional Surgical History: Right chest port-discontinued - Social History Smoking Status: Never Smoker Substance Use Type: None - Medications Home Medications: Home Medications Medication Instructions Recorded Confirmed Last Taken Type Lisinopril [Zestril TAB] 10 mg PO QDAY 05/19/14 11/24/16 05/18/14 History Insulin NPH Hum/Reg Insulin Hm 30 unit SQ QAM 10/05/15 11/24/16 Unknown History [HumuLIN 70-30 Vial] Insulin NPH Hum/Reg Insulin Hm 40 unit SQ QPM 10/05/15 11/24/16 Unknown History [HumuLIN 70-30 Vial] Sertraline [Zoloft] 100 mg PO QDAY 10/05/15 11/24/16 Unknown History methOCARBAMOL [Robaxin TAB] 500 mg PO BID 07/18/16 11/24/16 Unknown History Pantoprazole [Protonix TAB] 40 mg PO QDAY #30 tablet 09/06/16 11/24/16 Unknown Rx Labetalol [Normodyne TAB] 100 mg PO BID #60 tablet 09/09/16 11/24/16 Unknown Rx Ondansetron [Zofran Odt] 4 mg PO Q6H #14 tab.rapdis 09/09/16 11/24/16 Unknown Rx Metoclopramide [Reglan] 10 mg PO TID PRN #20 tab 09/13/16 11/24/16 Unknown Rx Omeprazole Magnesium [PriLOSEC Otc] 20 mg PO QDAY #14 tablet. 12/09/16 Unknown Rx Dicyclomine [Bentyl] 20 mg PO QID #30 tablet 01/28/17 Unknown Rx Ondansetron [Zofran Odt] 4 mg PO Q6H #14 tab.rapdis 02/11/17 Unknown Rx ALBUTEROL NEB's [Proventil 0.083% 2.5 mg IH Q3HRT PRN #30 nebu 04/11/17 Unknown Rx NEBS] Insulin Aspart [NovoLOG Flexpen] 1 dose SQ AC #1 pen 04/11/17 Unknown Rx Insulin Detemir [Levemir] 5 units SUB-Q QAMDIAB #30 units 04/11/17 Unknown Rx Ondansetron [Zofran Oral Liq] 4 mg PO Q4H PRN #1 bottle 04/11/17 Unknown Rx Sodium Bicarbonate 650 mg PO BID #60 tablet 04/11/17 Unknown Rx oxyCODONE /ACETAMINOPHEN [Percocet 1 tab PO Q4H PRN #30 tablet 04/11/17 Unknown Rx 5/325 mg] Promethazine [Phenergan TAB] 25 mg PO Q6HR PRN #10 tab 07/27/17 Unknown Rx Promethazine [Phenergan TAB] 25 mg PO Q6HR PRN #30 tab 08/09/17 Unknown Rx Promethazine [Phenergan TAB] 25 mg PO Q6HR PRN #30 tab 09/12/17 Unknown Rx Promethazine [Phenergan TAB] 25 mg PO Q8HR PRN #12 tab 11/11/17 Unknown Rx Ondansetron [Zofran Odt] 8 mg PO Q8HR PRN #14 tab.rapdis 11/24/17 Unknown Rx Promethazine [Phenergan TAB] 25 mg PO Q8HR PRN #30 tab 11/24/17 Unknown Rx oxyCODONE /ACETAMINOPHEN [Percocet 1 tab PO Q6HR PRN #10 tablet 11/24/17 Unknown Rx 5/325] ED Physical Exam - General Limitations: No Limitations General appearance: alert, in no apparent distress - Head Head exam: Present: atraumatic, normocephalic, normal inspection - Eye Eye exam: Present: normal appearance, PERRL - ENT ENT exam: Present: normal exam, normal orophraynx, mucous membranes moist - Neck Neck exam: Present: normal inspection, full ROM. Absent: tenderness, meningismus, lymphadenopathy, thyromegaly - Respiratory Respiratory exam: Present: normal lung sounds bilaterally. Absent: respiratory distress, wheezes, rales, rhonchi, stridor, chest wall tenderness, accessory muscle use, decreased breath sounds, prolonged expiratory - Cardiovascular Cardiovascular Exam: Present: regular rate, normal rhythm, normal heart sounds - GI/Abdominal GI/Abdominal exam: Present: soft, normal bowel sounds. Absent: distended, tenderness, guarding, rebound, rigid, organomegaly, mass, bruit, pulsatile mass , hernia - Extremities Exam Extremities exam: Present: normal inspection, full ROM, normal capillary refill. Absent: tenderness, pedal edema, joint swelling, calf tenderness - Back Exam Back exam: Absent: tenderness, CVA tenderness (R), CVA tenderness (L), muscle spasm, paraspinal tenderness, vertebral tenderness - Neurological Exam Neurological exam: Present: alert, oriented X3, CN II-XII intact, normal gait - Psychiatric Psychiatric exam: Present: normal affect, normal mood - Skin Skin exam: Present: warm, intact, normal color. Absent: cyanosis, diaphoretic, erythema ED Course Vital Signs 11/24/17 11/24/17 11/24/17 12:08 12:12 12:37 Temperature 97.6 F Pulse Rate 103 H Respiratory 22 18 Rate Blood Pressure 162/103 O2 Sat by Pulse 96 Oximetry - Reevaluation(s) Reevaluation #1: 11/24/17 18:12 Patient stated that she is feeling better, no abdominal pain no vomiting. Reevaluation #2: 11/24/17 18:43 Patient stated that she is feeling much better. Patient denied any nausea vomiting. I informed about her CT abdomen and pelvis results and the need for follow-up. Patient is asking for Phenergan tablets. I advised patient to follow up with her primary care physician in the next 2-3 days. ED Medical Decision Making - Lab Data Result diagrams: 11/24/17 12:57 11/24/17 12:57 Critical care attestation.: If time is entered above; I have spent that time in minutes in the direct care of this critically ill patient, excluding procedure time. ED Disposition Clinical Impression: Abdominal pain, Nausea and vomiting in adult Disposition: DC-01 TO HOME OR SELFCARE Is pt being admited?: No Condition: Stable Instructions: Abdominal Pain (ED), Acute Nausea and Vomiting (ED), Back Pain ( ED) Prescriptions: Ondansetron [Zofran Odt] 8 mg PO Q8HR PRN #14 tab.rapdis PRN Reason: Nausea And Vomiting oxyCODONE /ACETAMINOPHEN [Percocet 5/325] 1 tab PO Q6HR PRN #10 tablet PRN Reason: Pain Promethazine [Phenergan TAB] 25 mg PO Q8HR PRN #30 tab PRN Reason: Nausea Referrals: PRIMARY CARE,MD [Primary Care Provider] - 3-5 Days
[2017-11-24 12:12] VITALS: BP 162/103
[2017-11-24 13:12] LABS: Basophils % (Auto) 0.1 % (0.0-1.8); Hematocrit 29.4 % (30.3-42.9); Hemoglobin 9.2 gm/dl (10.1-14.3); Lymphocytes # (Auto) 1.2 K/mm3 (1.2-5.4); Lymphocytes % (Auto) 15.8 % (13.4-35.0); Mean Corpuscular HGB Conc 31 % (30-34); Mean Corpuscular Hemoglobin 28 pg (28-32); Mean Corpuscular Volume 91 fl (79-97); Monocytes # (Auto) 0.6 K/mm3 (0.0-0.8); Monocytes % (Auto) 8.4 % (0.0-7.3); Platelet Count 375 K/mm3 (140-440); Red Blood Count 3.23 M/mm3 (3.65-5.03); Red Cell Distribution Width 17.3 % (13.2-15.2)
[2017-11-24 13:32] LABS: Albumin 4.2 g/dL (3.9-5); Calcium 9.6 mg/dL (8.4-10.2)
[2017-11-24] MEDS ORDERED: ZOFRAN IM ONE (14:31)
[2017-11-24] MEDS ORDERED: BENADRYL IM ONE (15:35)
[2017-11-24] MEDS ORDERED: DILAUDID IM ONE (15:35)
--- NOTE | 2017-11-24 18:21 | Cat Scan Report ---
FINAL REPORT PROCEDURE: CT ABDOMEN PELVIS WO CON TECHNIQUE: Computerized axial tomography of the abdomen and pelvis was performed without intravenous contrast. This study is performed without intravascular contrast material and its sensitivity for abdominal and pelvic pathology, including neoplasms, inflammation, abscess, free fluid, thrombosis, arterial dissection and infarction, is reduced compared with a contrast enhanced study. HISTORY: ABDOMINAL PAIN COMPARISON: No prior studies are available for comparison. FINDINGS: Visualized lower thorax: Unremarkable. Liver: Mild diffuse low attenuation is compatible with fatty infiltration. Spleen: Normal size and attenuation. Gallbladder and biliary system: There has been cholecystectomy. Pancreas: Normal. Adrenals: There is an intermediate density, indeterminate etiology, 17 millimeter right adrenal nodule. Kidneys: No hydronephrosis or urolithiasis bilaterally. GI tract: The appendix is not visualized. No bowel obstruction or acute inflammation is seen. Lymph nodes and mesentery: Normal. Vasculature: Normal. Bladder: Normal. Reproductive organs: 2.2 centimeter left ovarian cyst. Peritoneum: No free fluid. Musculoskeletal structures: No significant abnormality. Other: There is a fat containing anterior abdominal wall hernia. IMPRESSION: No bowel obstruction or acute inflammation is seen. The appendix is not identified. 2 centimeter left ovarian cyst. 17 millimeter right adrenal nodule.
== END 2017-11-24 19:00 | disposition home or self-care (01) ==
LOC: ED 11:37
DX: R10.9 Unspecified abdominal pain (principal); R11.2 Nausea with vomiting, unspecified; I10 Essential (primary) hypertension; J45.909 Unspecified asthma, uncomplicated
CPT/HCPCS: 36415; 74176; 80053; 83690; 85025; 96372; 96374; 99284; J1170; J1200; J2405

== ENCOUNTER 2017-11-30 09:42 | Emergency (ER) | payer MEDICAID | END 2017-11-30 10:31 | disposition left against medical advice (07) | LOC: ED 09:42 | DX: R10.9 Unspecified abdominal pain (principal); Z53.21 Procedure and treatment not carried out due to patient leaving prior to being seen by health care provider ==

== ENCOUNTER 2017-12-03 07:41 | Emergency (ER) | payer MEDICAID ==
[2017-12-03] MEDS ORDERED: DILAUDID IV ONE ×3 (07:54→10:35)
[2017-12-03] MEDS ORDERED: BENADRYL IV ONE (07:59)
--- NOTE | 2017-12-03 07:59 | Emergency Department Report ---
HPI - General Chief Complaint: Back Pain/Injury Time Seen by Provider: 12/03/17 07:52 - HPI HPI: 42-year-old female presents to the emergency department via EMS from home with the complaint of some mid to lower back pain, abdominal pain and nausea without vomiting going on for the past few days. The patient says that the back pain was so bad that she does lay down on the floor the past few days. She has a primary care physician and a pain physician but has not been able to see them secondary to her symptoms and has run out of pain medication. She has a past medical history of asthma, CHF, hypertension, spina bifida and gastroparesis. She denies any trauma. No numbness or paresthesias or any problems with bowel or bladder. ED Past Medical Hx - Past Medical History Previous Medical History?: Yes Hx Hypertension: Yes Hx CVA: No Hx Heart Attack/AMI: No Hx Congestive Heart Failure: Yes Hx Diabetes: Yes Hx Deep Vein Thrombosis: No Hx Pulmonary Embolism: No Hx GERD: No Hx Liver Disease: No Hx Renal Disease: No Hx Sickle Cell Disease: No Hx Arthritis: No Hx Headaches / Migraines: No Hx Seizures: No Hx Kidney Stones: No Hx Psychiatric Treatment: No Hx Asthma: Yes Hx COPD: No Hx Dementia: No Hx HIV: No Additional medical history: spina bifida, Gastroparesis. morbid obesity, - Surgical History Past Surgical History?: Yes Hx Coronary Stent: No Hx Open Heart Surgery: No Hx Pacemaker: No Hx Internal Defibrillator: No Hx Cholecystectomy: Yes Hx Appendectomy: Yes Hx Breast Surgery: Yes (breast reduction) Additional Surgical History: Right chest port-discontinued - Social History Smoking Status: Never Smoker Substance Use Type: None - Medications Home Medications: Home Medications Medication Instructions Recorded Confirmed Last Taken Type Lisinopril [Zestril TAB] 10 mg PO QDAY 05/19/14 11/24/16 05/18/14 History Insulin NPH Hum/Reg Insulin Hm 30 unit SQ QAM 10/05/15 11/24/16 Unknown History [HumuLIN 70-30 Vial] Insulin NPH Hum/Reg Insulin Hm 40 unit SQ QPM 10/05/15 11/24/16 Unknown History [HumuLIN 70-30 Vial] Sertraline [Zoloft] 100 mg PO QDAY 10/05/15 11/24/16 Unknown History methOCARBAMOL [Robaxin TAB] 500 mg PO BID 07/18/16 11/24/16 Unknown History Pantoprazole [Protonix TAB] 40 mg PO QDAY #30 tablet 09/06/16 11/24/16 Unknown Rx Labetalol [Normodyne TAB] 100 mg PO BID #60 tablet 09/09/16 11/24/16 Unknown Rx Ondansetron [Zofran Odt] 4 mg PO Q6H #14 tab.rapdis 09/09/16 11/24/16 Unknown Rx Metoclopramide [Reglan] 10 mg PO TID PRN #20 tab 09/13/16 11/24/16 Unknown Rx Omeprazole Magnesium [PriLOSEC Otc] 20 mg PO QDAY #14 tablet. 12/09/16 Unknown Rx Dicyclomine [Bentyl] 20 mg PO QID #30 tablet 01/28/17 Unknown Rx Ondansetron [Zofran Odt] 4 mg PO Q6H #14 tab.rapdis 02/11/17 Unknown Rx ALBUTEROL NEB's [Proventil 0.083% 2.5 mg IH Q3HRT PRN #30 nebu 04/11/17 Unknown Rx NEBS] Insulin Aspart [NovoLOG Flexpen] 1 dose SQ AC #1 pen 04/11/17 Unknown Rx Insulin Detemir [Levemir] 5 units SUB-Q QAMDIAB #30 units 04/11/17 Unknown Rx Ondansetron [Zofran Oral Liq] 4 mg PO Q4H PRN #1 bottle 04/11/17 Unknown Rx Sodium Bicarbonate 650 mg PO BID #60 tablet 04/11/17 Unknown Rx oxyCODONE /ACETAMINOPHEN [Percocet 1 tab PO Q4H PRN #30 tablet 04/11/17 Unknown Rx 5/325 mg] Promethazine [Phenergan TAB] 25 mg PO Q6HR PRN #10 tab 07/27/17 Unknown Rx Promethazine [Phenergan TAB] 25 mg PO Q6HR PRN #30 tab 08/09/17 Unknown Rx Promethazine [Phenergan TAB] 25 mg PO Q6HR PRN #30 tab 09/12/17 Unknown Rx Promethazine [Phenergan TAB] 25 mg PO Q8HR PRN #12 tab 11/11/17 Unknown Rx Ondansetron [Zofran Odt] 8 mg PO Q8HR PRN #14 tab.rapdis 11/24/17 Unknown Rx oxyCODONE /ACETAMINOPHEN [Percocet 1 tab PO Q6HR PRN #10 tablet 11/24/17 Unknown Rx 5/325] Promethazine [Phenergan TAB] 25 mg PO Q8HR PRN #16 tab 12/03/17 Unknown Rx ED Review of Systems ROS: Stated complaint: BACK PAIN Other details as noted in HPI Comment: All other systems reviewed and negative Constitutional: denies: chills, fever Eyes: denies: eye pain, eye discharge, vision change ENT: denies: ear pain, throat pain Respiratory: denies: cough, shortness of breath, wheezing Cardiovascular: denies: chest pain, palpitations Gastrointestinal: abdominal pain, nausea Genitourinary: denies: urgency, dysuria, discharge Musculoskeletal: back pain. denies: joint swelling Skin: denies: rash, lesions Neurological: denies: headache, weakness, paresthesias Physical Exam - Physical Exam Vital Signs: Vital Signs 12/03/17 07:45 Temperature 98.3 F Pulse Rate 90 Respiratory 18 Rate Blood Pressure 200/156 O2 Sat by Pulse 98 Oximetry Physical Exam: GENERAL: The patient is well-developed well-nourished. HENT: Normocephalic. Atraumatic. Patient has moist mucous membranes. EYES: Extraocular motions are intact. Pupils equal reactive to light bilaterally. NECK: Supple. Trachea is midline. CHEST/LUNGS: Clear to auscultation. There is no respiratory distress noted. HEART/CARDIOVASCULAR: Regular. There is no tachycardia. There is no murmur. ABDOMEN: Abdomen is soft. Mild generalized tenderness to palpation. No guarding. Morbidly obese habitus. Patient has normal bowel sounds. SKIN: Skin is warm and dry. NEURO: The patient is awake, alert, and oriented. The patient is cooperative. The patient has no focal neurologic deficits. The patient has normal speech. MUSCULOSKELETAL: There is no tenderness or deformity. There is no evidence of acute injury. ED Course Vital Signs 12/03/17 07:45 Temperature 98.3 F Pulse Rate 90 Respiratory 18 Rate Blood Pressure 200/156 O2 Sat by Pulse 98 Oximetry ED Medical Decision Making - Lab Data Result diagrams: 12/03/17 08:13 02/12/18 08:13 - Radiology Data Radiology results: image reviewed interpreted by me: Abdominal x-ray shows nonspecific nonobstructive bowel gas. - Medical Decision Making 42-year-old female who is well-known to me in this department presents with abdominal pain and back pain. She has chronic pain issues and both of these areas. However she was still evaluated fully in the main emergency department with physical exam, labs and imaging. Physical exam does not show any signs of a toxic or rigid abdomen and heart and lung sounds are normal to auscultation. Labs are unremarkable as well. No leukocytosis, electrolyte abnormalities, renal insufficiency and she has normal belly labs such as bilirubin, lipase and LFTs. Abdominal x-ray shows nonspecific nonobstructive bowel gas. She was given a few doses of pain medication and says she is feeling much better. She was seen ambulatory in the emergency department and did not appear unstable. She denies any problems with bowel or bladder, numbness or paresthesias and does not appear to have any of the emergent conditions such as cauda equina, epidural abscess or cord compression syndrome. She has pain medication at home that she can take. She has good follow-up with a primary care doctor and has been encouraged to see them in the next few days. She will return to the ER with any worsening of her symptoms or any acute distress. - Differential Diagnosis gastroparesis, colitis, viral syndrome, back spasm, sprain Critical care attestation.: If time is entered above; I have spent that time in minutes in the direct care of this critically ill patient, excluding procedure time. ED Disposition Clinical Impression: Abdominal pain Qualifiers: Abdominal location: generalized Qualified Code(s): R10.84 - Generalized abdominal pain Back pain Qualifiers: Back pain location: low back pain Chronicity: unspecified Back pain laterality : unspecified Sciatica presence: without sciatica Qualified Code(s): M54.5 - Low back pain Hypertension Qualifiers: Hypertension type: essential hypertension Qualified Code(s): I10 - Essential ( primary) hypertension Disposition: TO HOME OR SELFCARE Is pt being admited?: No Condition: Stable Instructions: Abdominal Pain (ED), Hypertension (ED), Back Pain (ED) Additional Instructions: Please follow-up with your primary care physician in the next few days. Return to the emergency Department with any worsening of your symptoms or any acute distress. You have been prescribed a medication that is sedating and therefore should not be taken prior to driving, working, and responsible for children and in no way should be mixed with alcohol of any quantity. Please try and stay away from foods that are high in salt and caffeinated products to help with your blood pressure. Keep a blood pressure log. Prescriptions: Promethazine [Phenergan TAB] 25 mg PO Q8HR PRN #16 tab PRN Reason: Nausea Referrals: PRIMARY CARE, [Primary Care Provider] - [facility] Time of Disposition: 11:02
[2017-12-03 08:47] LABS: Basophils % (Auto) 0.3 % (0.0-1.8); Eosinophils # (Auto) 0.1 K/mm3 (0.0-0.4); Hematocrit 28.8 % (30.3-42.9); Hemoglobin 9.2 gm/dl (10.1-14.3); Lymphocytes # (Auto) 2.7 K/mm3 (1.2-5.4); Lymphocytes % (Auto) 43.2 % (13.4-35.0); Mean Corpuscular HGB Conc 32 % (30-34); Mean Corpuscular Hemoglobin 28 pg (28-32); Mean Corpuscular Volume 89 fl (79-97); Monocytes # (Auto) 0.4 K/mm3 (0.0-0.8); Monocytes % (Auto) 5.9 % (0.0-7.3); Platelet Count 378 K/mm3 (140-440); Red Blood Count 3.24 M/mm3 (3.65-5.03); Red Cell Distribution Width 17.1 % (13.2-15.2)
[2017-12-03 09:00] LABS: Alanine Aminotransferase 5 units/L (7-56); Albumin 4.3 g/dL (3.9-5); BUN/Creatinine Ratio 8; Bilirubin,Direct < 0.2 mg/dL (0-0.2); Blood Urea Nitrogen 10 mg/dL (7-17); Calcium 9.1 mg/dL (8.4-10.2); Hemolysis Index 3; Lipase 15 units/L (13-60)
--- NOTE | 2017-12-03 10:00 | XRay Report ---
ABDOMEN, 2 views: History: Abdominal pain. Slightly limited exam secondary to body habitus. There is no evidence of free air beneath the diaphragms. The gas pattern within the abdomen is unremarkable. There is no evidence of bowel dilatation, significant air-fluid levels, or pathologic calcifications. Organ shadows are unremarkable. Cholecystectomy changes are noted. IMPRESSION: Unremarkable abdomen.
[2017-12-03 10:51] LABS: Bilirubin,Urine NEG (Negative); Blood,Urine NEG (Negative); Color,Urine Yellow (Yellow); Mucus,Urine 1+ /HPF; Nitrite,Urine NEG (Negative); Protein,Urine <15 mg/dL mg/dL (Negative)
[2017-12-03 11:04] VITALS: BP 110/87
== END 2017-12-03 11:13 | disposition home or self-care (01) ==
LOC: ED 07:41
DX: M54.5 Low back pain (principal); R11.0 Nausea; R10.9 Unspecified abdominal pain; E11.9 Type 2 diabetes mellitus without complications; I11.0 Hypertensive heart disease with heart failure; I50.9 Heart failure, unspecified; Z79.4 Long term (current) use of insulin
CPT/HCPCS: 36415; 74019; 80048; 80074; 81001; 82550; 83690; 84703; 85025; 96374; 96375; 96376; 99285; J1170; J1200

== ENCOUNTER 2017-12-08 05:33 | Emergency (ER) | payer MEDICAID ==
[2017-12-08 06:06] VITALS: BP 183/103
== END 2017-12-08 11:30 | disposition left against medical advice (07) ==
LOC: ED 05:33
DX: R10.9 Unspecified abdominal pain (principal); M54.9 Dorsalgia, unspecified; Z53.21 Procedure and treatment not carried out due to patient leaving prior to being seen by health care provider

== ENCOUNTER 2017-12-08 13:46 | Emergency (ER) | payer MEDICAID ==
[2017-12-08 13:53] VITALS: BP 169/108
[2017-12-08] MEDS ORDERED: NACL 0.9% 1000 ML 1,000 ML IV ONE (14:34)
[2017-12-08] MEDS ORDERED: ZOFRAN IV ONE ×2 (14:34→16:34)
[2017-12-08] MEDS ORDERED: MORPHINE IV ONE ×2 (14:34→16:34)
--- NOTE | 2017-12-08 14:34 | Emergency Department Report ---
Blank Doc - Documentation Documentation: Patient is a 42-year-old female with history of spina bifida who lives and GERD who is complaining of nausea vomiting for the past 3 days. Patient also takes Percocet for chronic pain and she is not had her medications in several days because of nausea vomiting. Patient is complaining of epigastric discomfort headache and gives nausea vomiting. Patient will be moved to the treatment area to get IV fluids nausea meds and check labs and be reassessed by the MLP
[2017-12-08] MEDS ORDERED: PEPCID IV ONE (14:35)
[2017-12-08] MEDS ORDERED: BENADRYL ONE (14:44)
[2017-12-08] MEDS ORDERED: BENADRYL IV ONE (14:53)
[2017-12-08 15:09] LABS: Basophils # (Auto) 0.1 K/mm3 (0.0-0.1); Basophils % (Auto) 0.7 % (0.0-1.8); Eosinophils % (Auto) 0.6 % (0.0-4.3); Hematocrit 28.3 % (30.3-42.9); Hemoglobin 8.8 gm/dl (10.1-14.3); Lymphocytes # (Auto) 1.6 K/mm3 (1.2-5.4); Lymphocytes % (Auto) 20.1 % (13.4-35.0); Mean Corpuscular HGB Conc 31 % (30-34); Mean Corpuscular Hemoglobin 29 pg (28-32); Mean Corpuscular Volume 91 fl (79-97); Monocytes # (Auto) 0.3 K/mm3 (0.0-0.8); Monocytes % (Auto) 3.7 % (0.0-7.3); Platelet Count 243 K/mm3 (140-440); Red Cell Distribution Width 17.1 % (13.2-15.2)
[2017-12-08 15:24] LABS: Calcium 9.1 mg/dL (8.4-10.2)
--- NOTE | 2017-12-08 16:00 | Emergency Department Report ---
ED Abdominal Pain HPI - General Chief Complaint: Back Pain/Injury Stated Complaint: BACK PAIN Time Seen by Provider: 12/08/17 14:33 Source: patient Mode of arrival: Ambulatory Limitations: No Limitations - History of Present Illness Initial Comments: 42-year-old female past medical history chronic abdominal pain, , GERD, spina bifida, chronic back pain,? Drug-seeking behavior presents with complaint of acute on chronic abdominal pain and lower back pain. Patient is awake alert and oriented 3. Denies any bladder or bowel incontinence. Denies any direct trauma to back or falls. Screening by Dr. Cassius turner MD Complaint: abdominal pain Onset/Timin -: week(s), Last night Location: periumbilical Severity scale (0 -10): 10 Improves With: nothing Worsens With: nothing - Related Data Home Medications Medication Instructions Recorded Confirmed Last Taken Lisinopril [Zestril TAB] 10 mg PO QDAY 05/19/14 11/24/16 05/18/14 Insulin NPH Hum/Reg Insulin Hm 30 unit SQ QAM 10/05/15 11/24/16 Unknown [HumuLIN 70-30 Vial] Insulin NPH Hum/Reg Insulin Hm 40 unit SQ QPM 10/05/15 11/24/16 Unknown [HumuLIN 70-30 Vial] Sertraline [Zoloft] 100 mg PO QDAY 10/05/15 11/24/16 Unknown methOCARBAMOL [Robaxin TAB] 500 mg PO BID 07/18/16 11/24/16 Unknown Previous Rx's Medication Instructions Recorded Last Taken Type Pantoprazole [Protonix TAB] 40 mg PO QDAY #30 tablet 09/06/16 Unknown Rx Labetalol [Normodyne TAB] 100 mg PO BID #60 tablet 09/09/16 Unknown Rx Ondansetron [Zofran Odt] 4 mg PO Q6H #14 tab.bhavnadis 09/09/16 Unknown Rx Metoclopramide [Reglan] 10 mg PO TID PRN #20 tab 09/13/16 Unknown Rx Omeprazole Magnesium [PriLOSEC Otc] 20 mg PO QDAY #14 tablet. 12/09/16 Unknown Rx Dicyclomine [Bentyl] 20 mg PO QID #30 tablet 01/28/17 Unknown Rx Ondansetron [Zofran Odt] 4 mg PO Q6H #14 tabdar 02/11/17 Unknown Rx ALBUTEROL NEB's [Proventil 0.083% 2.5 mg IH Q3HRT PRN #30 nebu 04/11/17 Unknown Rx NEBS] Insulin Aspart [NovoLOG Flexpen] 1 dose SQ AC #1 pen 04/11/17 Unknown Rx Insulin Detemir [Levemir] 5 units SUB-Q QAMDIAB #30 units 04/11/17 Unknown Rx Ondansetron [Zofran Oral Liq] 4 mg PO Q4H PRN #1 bottle 04/11/17 Unknown Rx Sodium Bicarbonate 650 mg PO BID #60 tablet 04/11/17 Unknown Rx oxyCODONE /ACETAMINOPHEN [Percocet 1 tab PO Q4H PRN #30 tablet 04/11/17 Unknown Rx 5/325 mg] Promethazine [Phenergan TAB] 25 mg PO Q6HR PRN #10 tab 07/27/17 Unknown Rx Promethazine [Phenergan TAB] 25 mg PO Q6HR PRN #30 tab 08/09/17 Unknown Rx Promethazine [Phenergan TAB] 25 mg PO Q6HR PRN #30 tab 09/12/17 Unknown Rx Promethazine [Phenergan TAB] 25 mg PO Q8HR PRN #12 tab 11/11/17 Unknown Rx Ondansetron [Zofran Odt] 8 mg PO Q8HR PRN #14 tab.rapdis 11/24/17 Unknown Rx oxyCODONE /ACETAMINOPHEN [Percocet 1 tab PO Q6HR PRN #10 tablet 11/24/17 Unknown Rx 5/325] Promethazine [Phenergan TAB] 25 mg PO Q8HR PRN #16 tab 12/03/17 Unknown Rx Famotidine [Pepcid] 20 mg PO BID PRN #30 tablet 12/08/17 Unknown Rx Ondansetron [Zofran Odt] 4 mg PO Q8H PRN #12 tab.rapdis 12/08/17 Unknown Rx Allergies Allergy/AdvReac Type Severity Reaction Status Date / Time ketorolac tromethamine Allergy Unknown Verified 08/16/17 05:28 [From Toradol] meperidine HCl [From Demerol] Allergy Shortness Verified 08/16/17 05:28 of Breath ED Review of Systems ROS: Stated complaint: BACK PAIN Other details as noted in HPI Constitutional: denies: chills, fever Eyes: denies: eye pain, eye discharge, vision change ENT: denies: ear pain, throat pain Respiratory: denies: cough, shortness of breath, wheezing Cardiovascular: denies: chest pain, palpitations Endocrine: no symptoms reported Gastrointestinal: abdominal pain (chronic intermittent abdominal pain). denies : nausea, diarrhea Genitourinary: denies: urgency, dysuria, discharge Musculoskeletal: denies: back pain, joint swelling, arthralgia Skin: denies: rash, lesions Neurological: denies: headache, weakness, paresthesias Psychiatric: denies: anxiety, depression Hematological/Lymphatic: denies: easy bleeding, easy bruising ED Past Medical Hx - Past Medical History Hx Hypertension: Yes Hx CVA: No Hx Heart Attack/AMI: No Hx Congestive Heart Failure: Yes Hx Diabetes: Yes Hx Deep Vein Thrombosis: No Hx Pulmonary Embolism: No Hx GERD: No Hx Liver Disease: No Hx Renal Disease: No Hx Sickle Cell Disease: No Hx Arthritis: No Hx Headaches / Migraines: No Hx Seizures: No Hx Kidney Stones: No Hx Psychiatric Treatment: No Hx Asthma: Yes Hx COPD: No Hx Dementia: No Hx HIV: No Additional medical history: spina bifida, Gastroparesis. morbid obesity, - Surgical History Hx Coronary Stent: No Hx Open Heart Surgery: No Hx Pacemaker: No Hx Internal Defibrillator: No Hx Cholecystectomy: Yes Hx Appendectomy: Yes Hx Breast Surgery: Yes (breast reduction) Additional Surgical History: Right chest port-discontinued - Social History Smoking Status: Never Smoker Substance Use Type: None - Medications Home Medications: Home Medications Medication Instructions Recorded Confirmed Last Taken Type Lisinopril [Zestril TAB] 10 mg PO QDAY 05/19/14 11/24/16 05/18/14 History Insulin NPH Hum/Reg Insulin Hm 30 unit SQ QAM 10/05/15 11/24/16 Unknown History [HumuLIN 70-30 Vial] Insulin NPH Hum/Reg Insulin Hm 40 unit SQ QPM 10/05/15 11/24/16 Unknown History [HumuLIN 70-30 Vial] Sertraline [Zoloft] 100 mg PO QDAY 10/05/15 11/24/16 Unknown History methOCARBAMOL [Robaxin TAB] 500 mg PO BID 07/18/16 11/24/16 Unknown History Pantoprazole [Protonix TAB] 40 mg PO QDAY #30 tablet 09/06/16 11/24/16 Unknown Rx Labetalol [Normodyne TAB] 100 mg PO BID #60 tablet 09/09/16 11/24/16 Unknown Rx Ondansetron [Zofran Odt] 4 mg PO Q6H #14 tab.rapdis 09/09/16 11/24/16 Unknown Rx Metoclopramide [Reglan] 10 mg PO TID PRN #20 tab 09/13/16 11/24/16 Unknown Rx Omeprazole Magnesium [PriLOSEC Otc] 20 mg PO QDAY #14 tablet.dr 12/09/16 Unknown Rx Dicyclomine [Bentyl] 20 mg PO QID #30 tablet 01/28/17 Unknown Rx Ondansetron [Zofran Odt] 4 mg PO Q6H #14 tab.rapdis 02/11/17 Unknown Rx ALBUTEROL NEB's [Proventil 0.083% 2.5 mg IH Q3HRT PRN #30 nebu 04/11/17 Unknown Rx NEBS] Insulin Aspart [NovoLOG Flexpen] 1 dose SQ AC #1 pen 04/11/17 Unknown Rx Insulin Detemir [Levemir] 5 units SUB-Q QAMDIAB #30 units 04/11/17 Unknown Rx Ondansetron [Zofran Oral Liq] 4 mg PO Q4H PRN #1 bottle 04/11/17 Unknown Rx Sodium Bicarbonate 650 mg PO BID #60 tablet 04/11/17 Unknown Rx oxyCODONE /ACETAMINOPHEN [Percocet 1 tab PO Q4H PRN #30 tablet 04/11/17 Unknown Rx 5/325 mg] Promethazine [Phenergan TAB] 25 mg PO Q6HR PRN #10 tab 07/27/17 Unknown Rx Promethazine [Phenergan TAB] 25 mg PO Q6HR PRN #30 tab 08/09/17 Unknown Rx Promethazine [Phenergan TAB] 25 mg PO Q6HR PRN #30 tab 09/12/17 Unknown Rx Promethazine [Phenergan TAB] 25 mg PO Q8HR PRN #12 tab 11/11/17 Unknown Rx Ondansetron [Zofran Odt] 8 mg PO Q8HR PRN #14 tab.rapdis 11/24/17 Unknown Rx oxyCODONE /ACETAMINOPHEN [Percocet 1 tab PO Q6HR PRN #10 tablet 11/24/17 Unknown Rx 5/325] Promethazine [Phenergan TAB] 25 mg PO Q8HR PRN #16 tab 12/03/17 Unknown Rx Famotidine [Pepcid] 20 mg PO BID PRN #30 tablet 12/08/17 Unknown Rx Ondansetron [Zofran Odt] 4 mg PO Q8H PRN #12 tab.rapdis 12/08/17 Unknown Rx ED Physical Exam - General Limitations: No Limitations General appearance: alert, in no apparent distress - Head Head exam: Present: atraumatic, normocephalic - Eye Eye exam: Present: normal appearance, PERRL, EOMI - ENT ENT exam: Present: mucous membranes moist - Neck Neck exam: Present: normal inspection - Respiratory Respiratory exam: Present: normal lung sounds bilaterally. Absent: respiratory distress - Cardiovascular Cardiovascular Exam: Present: regular rate, normal rhythm. Absent: systolic murmur, diastolic murmur, rubs, gallop - GI/Abdominal GI/Abdominal exam: Present: soft (abdomen obese, no discrete tenderness on palpation), normal bowel sounds - Extremities Exam Extremities exam: Present: normal inspection - Back Exam Back exam: Present: normal inspection - Neurological Exam Neurological exam: Present: alert, oriented X3 - Psychiatric Psychiatric exam: Present: normal affect, normal mood - Skin Skin exam: Present: warm, dry, intact, normal color. Absent: rash ED Course Vital Signs 12/08/17 13:49 Temperature 99 F Pulse Rate 98 H Respiratory 18 Rate Blood Pressure 169/108 O2 Sat by Pulse 100 Oximetry ED Medical Decision Making - Lab Data Result diagrams: 12/08/17 14:48 12/08/17 14:48 - Medical Decision Making A/P: Chronic abdominal pain, GERD symptoms 1-patient screen by Dr. Hammonds. As instructed by Dr. Hammonds I followed up blood work results. No significant abnormality on CBC or BMP. I reviewed this with Dr. Hammonds. Patient's hemoglobin and hematocrit at baseline and patient's creatinine at baseline. 2-patient is specifically requesting Dilaudid. She is exhibiting drug-seeking behavior and is adamant that she wants high-dose narcotics. 3-given patient's history and normal labs we'll discharge. Zofran when necessary, antacids when necessary 4- follow-up with primary care and GI Critical care attestation.: If time is entered above; I have spent that time in minutes in the direct care of this critically ill patient, excluding procedure time. ED Disposition Clinical Impression: Abdominal pain Qualifiers: Abdominal location: epigastric Qualified Code(s): R10.13 - Epigastric pain GERD (gastroesophageal reflux disease) Qualifiers: Esophagitis presence: with esophagitis Qualified Code(s): K21.0 - Gastro- esophageal reflux disease with esophagitis Disposition: TO HOME OR SELFCARE Is pt being admited?: No Does the pt Need Aspirin: No Condition: Stable Instructions: Gastroesophageal Reflux Disease (ED), Abdominal Pain (ED) Prescriptions: Famotidine [Pepcid] 20 mg PO BID PRN #30 tablet PRN Reason: Indigestion Ondansetron [Zofran Odt] 4 mg PO Q8H PRN #12 tab.rapdis PRN Reason: Nausea Referrals: [facility] [Provider Group] - 3-5 Days [facility] [Outside] - 3-5 Days Time of Disposition: 16:02
[2017-12-08] MEDS ORDERED: MORPHINE ONE (16:35)
== END 2017-12-08 16:44 | disposition home or self-care (01) ==
LOC: ED 13:46
DX: K21.0 Gastro-esophageal reflux disease with esophagitis (principal); R10.13 Epigastric pain; E11.9 Type 2 diabetes mellitus without complications; I50.9 Heart failure, unspecified; J45.909 Unspecified asthma, uncomplicated; Z90.49 Acquired absence of other specified parts of digestive tract; Z79.4 Long term (current) use of insulin; E66.01 Morbid (severe) obesity due to excess calories; I10 Essential (primary) hypertension; Z88.8 Allergy status to other drugs, medicaments and biological substances
CPT/HCPCS: 36415; 80048; 83690; 85025; 96361; 96374; 96375; 96376; 99283; J1200; J2270; J2405; J7030

== ENCOUNTER 2018-01-01 05:36 | Inpatient (IN) | payer MEDICAID ==
[2018-01-01] MEDS ORDERED: NARCAN 2 MG/2 ML IV ONE (07:31)
[2018-01-01] MEDS ORDERED: NACL 0.9% 1000 ML 1,000 ML IV ONE (07:31)
--- NOTE | 2018-01-01 07:37 | Emergency Department Report ---
ED Altered Mental Status HPI - General Chief Complaint: Altered Mental Status Stated Complaint: AMS Time Seen by Provider: 01/01/18 07:09 Source: family, EMS Mode of arrival: Stretcher Limitations: Altered Mental Status - History of Present Illness Initial Comments: Patient is 42 years old morbidly obese -[place] female with history of hypertension, chronic kidney disease, diabetes CHF and asthma. Patient presented for evaluation of altered mental status for the last 3 days. Per report patient has been acting confused and weak. He also stated that patient just started on morphine 15 mg and Benadryl. Patient is confused and not answering questions. MD Complaint: altered mental status, confusion, weakness -: Gradual, days(s) Severity: moderate Consistency of Symptoms: getting worse - Related Data Home Medications Medication Instructions Recorded Confirmed Last Taken Lisinopril [Zestril TAB] 10 mg PO QDAY 05/19/14 11/24/16 05/18/14 Insulin NPH Hum/Reg Insulin Hm 30 unit SQ QAM 10/05/15 11/24/16 Unknown [HumuLIN 70-30 Vial] Insulin NPH Hum/Reg Insulin Hm 40 unit SQ QPM 10/05/15 11/24/16 Unknown [HumuLIN 70-30 Vial] Sertraline [Zoloft] 100 mg PO QDAY 10/05/15 11/24/16 Unknown methOCARBAMOL [Robaxin TAB] 500 mg PO BID 07/18/16 11/24/16 Unknown Previous Rx's Medication Instructions Recorded Last Taken Type Pantoprazole [Protonix TAB] 40 mg PO QDAY #30 tablet 09/06/16 Unknown Rx Labetalol [Normodyne TAB] 100 mg PO BID #60 tablet 09/09/16 Unknown Rx Ondansetron [Zofran Odt] 4 mg PO Q6H #14 tab.bhavnadis 09/09/16 Unknown Rx Metoclopramide [Reglan] 10 mg PO TID PRN #20 tab 09/13/16 Unknown Rx Omeprazole Magnesium [PriLOSEC Otc] 20 mg PO QDAY #14 tablet. 12/09/16 Unknown Rx Dicyclomine [Bentyl] 20 mg PO QID #30 tablet 01/28/17 Unknown Rx Ondansetron [Zofran Odt] 4 mg PO Q6H #14 tab.milad 02/11/17 Unknown Rx ALBUTEROL NEB's [Proventil 0.083% 2.5 mg IH Q3HRT PRN #30 nebu 04/11/17 Unknown Rx NEBS] Detemir (Nf) [Levemir (Nf)] 5 units SUB-Q QAMDIAB #30 units 04/11/17 Unknown Rx Insulin Aspart [NovoLOG Flexpen] 1 dose SQ AC #1 pen 04/11/17 Unknown Rx Ondansetron [Zofran Oral Liq] 4 mg PO Q4H PRN #1 bottle 04/11/17 Unknown Rx Sodium Bicarbonate 650 mg PO BID #60 tablet 04/11/17 Unknown Rx oxyCODONE /ACETAMINOPHEN [Percocet 1 tab PO Q4H PRN #30 tablet 04/11/17 Unknown Rx 5/325 mg] Promethazine [Phenergan TAB] 25 mg PO Q6HR PRN #10 tab 07/27/17 Unknown Rx Promethazine [Phenergan TAB] 25 mg PO Q6HR PRN #30 tab 08/09/17 Unknown Rx Promethazine [Phenergan TAB] 25 mg PO Q6HR PRN #30 tab 09/12/17 Unknown Rx Promethazine [Phenergan TAB] 25 mg PO Q8HR PRN #12 tab 11/11/17 Unknown Rx Ondansetron [Zofran Odt] 8 mg PO Q8HR PRN #14 tab.rapdis 11/24/17 Unknown Rx oxyCODONE /ACETAMINOPHEN [Percocet 1 tab PO Q6HR PRN #10 tablet 11/24/17 Unknown Rx 5/325] Promethazine [Phenergan TAB] 25 mg PO Q8HR PRN #16 tab 12/03/17 Unknown Rx Famotidine [Pepcid] 20 mg PO BID PRN #30 tablet 12/08/17 Unknown Rx Ondansetron [Zofran Odt] 4 mg PO Q8H PRN #12 tab.rapdis 12/08/17 Unknown Rx Allergies Allergy/AdvReac Type Severity Reaction Status Date / Time ketorolac tromethamine Allergy Unknown Verified 08/16/17 05:28 [From Toradol] meperidine HCl [From Demerol] Allergy Shortness Verified 08/16/17 05:28 of Breath ED Review of Systems ROS: Stated complaint: AMS Other details as noted in HPI Comment: Unobtainable due to pts medical conditions ED Past Medical Hx - Past Medical History Previous Medical History?: Yes Hx Hypertension: Yes Hx CVA: No Hx Heart Attack/AMI: No Hx Congestive Heart Failure: Yes Hx Diabetes: Yes Hx Deep Vein Thrombosis: No Hx Pulmonary Embolism: No Hx GERD: No Hx Liver Disease: No Hx Renal Disease: No Hx Sickle Cell Disease: No Hx Arthritis: No Hx Headaches / Migraines: No Hx Seizures: No Hx Kidney Stones: No Hx Psychiatric Treatment: No Hx Asthma: Yes Hx COPD: No Hx Dementia: No Hx HIV: No Additional medical history: spina bifida, Gastroparesis. morbid obesity, - Surgical History Past Surgical History?: Yes Hx Coronary Stent: No Hx Open Heart Surgery: No Hx Pacemaker: No Hx Internal Defibrillator: No Hx Cholecystectomy: Yes Hx Appendectomy: Yes Hx Breast Surgery: Yes (breast reduction) Additional Surgical History: Right chest port-discontinued - Social History Smoking Status: Never Smoker Substance Use Type: None - Medications Home Medications: Home Medications Medication Instructions Recorded Confirmed Last Taken Type Lisinopril [Zestril TAB] 10 mg PO QDAY 05/19/14 11/24/16 05/18/14 History Insulin NPH Hum/Reg Insulin Hm 30 unit SQ QAM 10/05/15 11/24/16 Unknown History [HumuLIN 70-30 Vial] Insulin NPH Hum/Reg Insulin Hm 40 unit SQ QPM 10/05/15 11/24/16 Unknown History [HumuLIN 70-30 Vial] Sertraline [Zoloft] 100 mg PO QDAY 10/05/15 11/24/16 Unknown History methOCARBAMOL [Robaxin TAB] 500 mg PO BID 07/18/16 11/24/16 Unknown History Pantoprazole [Protonix TAB] 40 mg PO QDAY #30 tablet 09/06/16 11/24/16 Unknown Rx Labetalol [Normodyne TAB] 100 mg PO BID #60 tablet 09/09/16 11/24/16 Unknown Rx Ondansetron [Zofran Odt] 4 mg PO Q6H #14 tab.rapdis 09/09/16 11/24/16 Unknown Rx Metoclopramide [Reglan] 10 mg PO TID PRN #20 tab 09/13/16 11/24/16 Unknown Rx Omeprazole Magnesium [PriLOSEC Otc] 20 mg PO QDAY #14 tablet. 12/09/16 Unknown Rx Dicyclomine [Bentyl] 20 mg PO QID #30 tablet 01/28/17 Unknown Rx Ondansetron [Zofran Odt] 4 mg PO Q6H #14 tab.rapdis 02/11/17 Unknown Rx ALBUTEROL NEB's [Proventil 0.083% 2.5 mg IH Q3HRT PRN #30 nebu 04/11/17 Unknown Rx NEBS] Detemir (Nf) [Levemir (Nf)] 5 units SUB-Q QAMDIAB #30 units 04/11/17 Unknown Rx Insulin Aspart [NovoLOG Flexpen] 1 dose SQ AC #1 pen 04/11/17 Unknown Rx Ondansetron [Zofran Oral Liq] 4 mg PO Q4H PRN #1 bottle 04/11/17 Unknown Rx Sodium Bicarbonate 650 mg PO BID #60 tablet 04/11/17 Unknown Rx oxyCODONE /ACETAMINOPHEN [Percocet 1 tab PO Q4H PRN #30 tablet 04/11/17 Unknown Rx 5/325 mg] Promethazine [Phenergan TAB] 25 mg PO Q6HR PRN #10 tab 07/27/17 Unknown Rx Promethazine [Phenergan TAB] 25 mg PO Q6HR PRN #30 tab 08/09/17 Unknown Rx Promethazine [Phenergan TAB] 25 mg PO Q6HR PRN #30 tab 09/12/17 Unknown Rx Promethazine [Phenergan TAB] 25 mg PO Q8HR PRN #12 tab 11/11/17 Unknown Rx Ondansetron [Zofran Odt] 8 mg PO Q8HR PRN #14 tab.rapdis 11/24/17 Unknown Rx oxyCODONE /ACETAMINOPHEN [Percocet 1 tab PO Q6HR PRN #10 tablet 11/24/17 Unknown Rx 5/325] Promethazine [Phenergan TAB] 25 mg PO Q8HR PRN #16 tab 12/03/17 Unknown Rx Famotidine [Pepcid] 20 mg PO BID PRN #30 tablet 12/08/17 Unknown Rx Ondansetron [Zofran Odt] 4 mg PO Q8H PRN #12 tab.rapdis 12/08/17 Unknown Rx ED Physical Exam - General Limitations: Altered Mental Status General appearance: alert, in no apparent distress - Head Head exam: Present: atraumatic, normocephalic, normal inspection - Eye Eye exam: Present: normal appearance Pupils: Present: miosis - ENT ENT exam: Present: normal exam, normal orophraynx - Neck Neck exam: Present: normal inspection - Respiratory Respiratory exam: Present: rales, rhonchi, decreased breath sounds. Absent: stridor, prolonged expiratory - Cardiovascular Cardiovascular Exam: Present: regular rate, normal rhythm, normal heart sounds - GI/Abdominal GI/Abdominal exam: Present: soft. Absent: distended, tenderness, guarding, rebound, rigid, organomegaly, mass, bruit, pulsatile mass - Extremities Exam Extremities exam: Present: normal inspection, full ROM, normal capillary refill - Back Exam Back exam: Present: normal inspection, full ROM. Absent: tenderness, CVA tenderness (L) - Neurological Exam Neurological exam: Present: altered - Skin Skin exam: Present: warm, intact, normal color ED Course Vital Signs 01/01/18 01/01/18 01/01/18 05:51 08:00 08:30 Temperature 97.9 F Pulse Rate 94 H 98 H 101 H Respiratory 18 14 21 Rate Blood Pressure 120/97 Blood Pressure 118/56 104/62 [Right] O2 Sat by Pulse 99 98 100 Oximetry - Reevaluation(s) Reevaluation #1: 01/01/18 08:[address] Rios, I presented the patient to him, about potassium of 8.[address] Rios advised to admit the patient is a hospitalist and he will see how. 01/01/18 09:01: Discussed with Cathy DUNNE with Dr. Sanchez and he stated that he will inform Dr. Sanchez. - Lab Data Result diagrams: 01/01/18 07:48 01/01/18 07:48 Lab Results 01/01/18 01/01/18 01/01/18 Range/Units 07:48 07:48 07:48 WBC 4.3 L (4.5-11.0) K/mm3 RBC 3.33 L (3.65-5.03) M/mm3 Hgb 9.2 L (10.1-14.3) gm/dl Hct 28.5 L (30.3-42.9) % MCV 86 (79-97) fl MCH 28 (28-32) pg MCHC 32 (30-34) % RDW 17.7 H (13.2-15.2) % Plt Count 353 (140-440) K/mm3 Curry % (Auto) Patient Support Specialist Add Manual Diff Complete Total Counted 100 Seg Neuts % (Manual) 51.0 (40.0-70.0) % Band Neutrophils % 13 % Lymphocytes % (Manual) 19.0 (13.4-35.0) % Reactive Lymphs % (Man) 0 % Monocytes % (Manual) 17 H (0.0-7.3) % Eosinophils % (Manual) 0 (0.0-4.3) % Basophils % (Manual) 0 (0.0-1.8) % Metamyelocytes % 0 % Myelocytes % 0 % Promyelocytes % 0 % Blast Cells % 0 % Nucleated RBC % Not Reportable Seg Neutrophils # Man 2.2 (1.8-7.7) K/mm3 Band Neutrophils # 0.5 K/mm3 Lymphocytes # (Manual) 0.8 L (1.2-5.4) K/mm3 Abs React Lymphs (Man) 0.0 K/mm3 Monocytes # (Manual) 0.7 (0.0-0.8) K/mm3 Eosinophils # (Manual) 0.0 (0.0-0.4) K/mm3 Basophils # (Manual) 0.0 (0.0-0.1) K/mm3 Metamyelocytes # 0.0 K/mm3 Myelocytes # 0.0 K/mm3 Promyelocytes # 0.0 K/mm3 Blast Cells # 0.0 K/mm3 WBC Morphology Not Reportable Hypersegmented Neuts Not Reportable Hyposegmented Neuts Not Reportable Hypogranular Neuts Not Reportable Smudge Cells Not Reportable Toxic Granulation Not Reportable Toxic Vacuolation Not Reportable Dohle Bodies Not Reportable Pelger-Huet Anomaly Not Reportable Juliet Rods Not Reportable Platelet Estimate Not Reportable Clumped Platelets Not Reportable Plt Clumps, EDTA Not Reportable Large Platelets Not Reportable Giant Platelets Not Reportable Platelet Satelliting Not Reportable Plt Morphology Comment Not Reportable RBC Morphology Not Reportable Dimorphic RBCs Not Reportable Polychromasia Not Reportable Hypochromasia Not Reportable Poikilocytosis Not Reportable Anisocytosis 1+ Microcytosis Not Reportable Macrocytosis Not Reportable Spherocytes Not Reportable Pappenheimer Bodies Not Reportable Sickle Cells Not Reportable Target Cells Not Reportable Tear Drop Cells Not Reportable Ovalocytes Not Reportable Helmet Cells Not Reportable Adam-[place] Bodies Not Reportable [place] Rings Not Reportable Dion Cells Not Reportable Bite Cells Not Reportable Crenated Cell Not Reportable Elliptocytes Not Reportable Acanthocytes (Spur) Not Reportable Rouleaux Not Reportable Hemoglobin C Crystals Not Reportable Schistocytes Not Reportable Malaria parasites Not Reportable Gume Bodies Not Reportable Hem Pathologist Commnt No PT (12.2-14.9) Sec. INR (0.87-1.13) APTT (24.2-36.6) Sec. Sodium 131 L (137-145) mmol/L Potassium 8.6 H* (3.6-5.0) mmol/L Chloride 90.8 L (98-107) mmol/L Carbon Dioxide 12 L (22-30) mmol/L Anion Gap 37 mmol/L BUN 127 H (7-17) mg/dL Creatinine 9.6 H (0.7-1.2) mg/dL Estimated GFR 5 ml/min BUN/Creatinine Ratio 13 % Glucose 189 H (65-100) mg/dL POC Glucose (70-105) Lactic Acid 1.30 (0.7-2.0) mmol/L Calcium 7.4 L (8.4-10.2) mg/dL Total Bilirubin 0.30 (0.1-1.2) mg/dL AST 7 (5-40) units/L ALT 8 (7-56) units/L Alkaline Phosphatase 127 (35-129) units/L Ammonia (25-60) umol/L Troponin T (0.00-0.029) ng/mL NT-Pro-B Natriuret Pep (0-450) pg/mL Total Protein 7.4 (6.3-8.2) g/dL Albumin 2.9 L (3.9-5) g/dL Albumin/Globulin Ratio 0.6 % Triglycerides (2-149) mg/dL Cholesterol (50-199) mg/dL LDL Cholesterol Direct (50-130) mg/dL HDL Cholesterol (40-59) mg/dL Cholesterol/HDL Ratio % HCG, Qual (Negative) Urine Color (Yellow) Urine Turbidity (Clear) Urine pH (5.0-7.0) Ur Specific [place] (1.003-1.030) Urine Protein (Negative) mg/dL Urine Glucose (UA) (Negative) mg/dL Urine Ketones (Negative) mg/dL Urine Blood (Negative) Urine Nitrite (Negative) Urine Bilirubin (Negative) Urine Urobilinogen (<2.0) mg/dL Ur Leukocyte Esterase (Negative) Urine WBC (Auto) (0.0-6.0) /HPF Urine RBC (Auto) (0.0-6.0) /HPF U Epithel Cells (Auto) (0-13.0) /HPF Urine Bacteria (Auto) (Negative) /HPF Urine Yeast (Budding) /HPF 01/01/18 01/01/18 01/01/18 Range/Units 07:48 07:48 07:48 WBC (4.5-11.0) K/mm3 RBC (3.65-5.03) M/mm3 Hgb (10.1-14.3) gm/dl Hct (30.3-42.9) % MCV (79-97) fl MCH (28-32) pg MCHC (30-34) % RDW (13.2-15.2) % Plt Count (140-440) K/mm3 Curry % (Auto) Add Manual Diff Total Counted Seg Neuts % (Manual) (40.0-70.0) % Band Neutrophils % % Lymphocytes % (Manual) (13.4-35.0) % Reactive Lymphs % (Man) % Monocytes % (Manual) (0.0-7.3) % Eosinophils % (Manual) (0.0-4.3) % Basophils % (Manual) (0.0-1.8) % Metamyelocytes % % Myelocytes % % Promyelocytes % % Blast Cells % % Nucleated RBC % Seg Neutrophils # Man (1.8-7.7) K/mm3 Band Neutrophils # K/mm3 Lymphocytes # (Manual) (1.2-5.4) K/mm3 Abs React Lymphs (Man) K/mm3 Monocytes # (Manual) (0.0-0.8) K/mm3 Eosinophils # (Manual) (0.0-0.4) K/mm3 Basophils # (Manual) (0.0-0.1) K/mm3 Metamyelocytes # K/mm3 Myelocytes # K/mm3 Promyelocytes # K/mm3 Blast Cells # K/mm3 WBC Morphology Hypersegmented Neuts Hyposegmented Neuts Hypogranular Neuts Smudge Cells Toxic Granulation Toxic Vacuolation Dohle Bodies Pelger-Huet Anomaly Juliet Rods Platelet Estimate Clumped Platelets Plt Clumps, EDTA Large Platelets Giant Platelets Platelet Satelliting Plt Morphology Comment RBC Morphology Dimorphic RBCs Polychromasia Hypochromasia Poikilocytosis Anisocytosis Microcytosis Macrocytosis Spherocytes Pappenheimer Bodies Sickle Cells Target Cells Tear Drop Cells Ovalocytes Helmet Cells Adam-[place] Bodies [place] Rings Dion Cells Bite Cells Crenated Cell Elliptocytes Acanthocytes (Spur) Rouleaux Hemoglobin C Crystals Schistocytes Malaria parasites Gume Bodies Hem Pathologist Commnt PT 18.0 H (12.2-14.9) Sec. INR 1.40 H (0.87-1.13) APTT 39.8 H (24.2-36.6) Sec. Sodium (137-145) mmol/L Potassium (3.6-5.0) mmol/L Chloride (98-107) mmol/L Carbon Dioxide (22-30) mmol/L Anion Gap mmol/L BUN (7-17) mg/dL Creatinine (0.7-1.2) mg/dL Estimated GFR ml/min BUN/Creatinine Ratio % Glucose (65-100) mg/dL POC Glucose (70-105) Lactic Acid (0.7-2.0) mmol/L Calcium (8.4-10.2) mg/dL Total Bilirubin (0.1-1.2) mg/dL AST (5-40) units/L ALT (7-56) units/L Alkaline Phosphatase (35-129) units/L Ammonia 28.0 (25-60) umol/L Troponin T 0.068 H (0.00-0.029) ng/mL NT-Pro-B Natriuret Pep (0-450) pg/mL Total Protein (6.3-8.2) g/dL Albumin (3.9-5) g/dL Albumin/Globulin Ratio % Triglycerides 125 (2-149) mg/dL Cholesterol 119 (50-199) mg/dL LDL Cholesterol Direct 46 L (50-130) mg/dL HDL Cholesterol 18 L (40-59) mg/dL Cholesterol/HDL Ratio 6.61 % HCG, Qual (Negative) Urine Color (Yellow) Urine Turbidity (Clear) Urine pH (5.0-7.0) Ur Specific [place] (1.003-1.030) Urine Protein (Negative) mg/dL Urine Glucose (UA) (Negative) mg/dL Urine Ketones (Negative) mg/dL Urine Blood (Negative) Urine Nitrite (Negative) Urine Bilirubin (Negative) Urine Urobilinogen (<2.0) mg/dL Ur Leukocyte Esterase (Negative) Urine WBC (Auto) (0.0-6.0) /HPF Urine RBC (Auto) (0.0-6.0) /HPF U Epithel Cells (Auto) (0-13.0) /HPF Urine Bacteria (Auto) (Negative) /HPF Urine Yeast (Budding) /HPF 01/01/18 01/01/18 01/01/18 Range/Units 07:48 08:00 08:05 WBC (4.5-11.0) K/mm3 RBC (3.65-5.03) M/mm3 Hgb (10.1-14.3) gm/dl Hct (30.3-42.9) % MCV (79-97) fl MCH (28-32) pg MCHC (30-34) % RDW (13.2-15.2) % Plt Count (140-440) K/mm3 Curry % (Auto) Add Manual Diff Total Counted Seg Neuts % (Manual) (40.0-70.0) % Band Neutrophils % % Lymphocytes % (Manual) (13.4-35.0) % Reactive Lymphs % (Man) % Monocytes % (Manual) (0.0-7.3) % Eosinophils % (Manual) (0.0-4.3) % Basophils % (Manual) (0.0-1.8) % Metamyelocytes % % Myelocytes % % Promyelocytes % % Blast Cells % % Nucleated RBC % Seg Neutrophils # Man (1.8-7.7) K/mm3 Band Neutrophils # K/mm3 Lymphocytes # (Manual) (1.2-5.4) K/mm3 Abs React Lymphs (Man) K/mm3 Monocytes # (Manual) (0.0-0.8) K/mm3 Eosinophils # (Manual) (0.0-0.4) K/mm3 Basophils # (Manual) (0.0-0.1) K/mm3 Metamyelocytes # K/mm3 Myelocytes # K/mm3 Promyelocytes # K/mm3 Blast Cells # K/mm3 WBC Morphology Hypersegmented Neuts Hyposegmented Neuts Hypogranular Neuts Smudge Cells Toxic Granulation Toxic Vacuolation Dohle Bodies Pelger-Huet Anomaly Juliet Rods Platelet Estimate Clumped Platelets Plt Clumps, EDTA Large Platelets Giant Platelets Platelet Satelliting Plt Morphology Comment RBC Morphology Dimorphic RBCs Polychromasia Hypochromasia Poikilocytosis Anisocytosis Microcytosis Macrocytosis Spherocytes Pappenheimer Bodies Sickle Cells Target Cells Tear Drop Cells Ovalocytes Helmet Cells Adam-[place] Bodies [place] Rings Dion Cells Bite Cells Crenated Cell Elliptocytes Acanthocytes (Spur) Rouleaux Hemoglobin C Crystals Schistocytes Malaria parasites Gume Bodies Hem Pathologist Commnt PT (12.2-14.9) Sec. INR (0.87-1.13) APTT (24.2-36.6) Sec. Sodium (137-145) mmol/L Potassium (3.6-5.0) mmol/L Chloride (98-107) mmol/L Carbon Dioxide (22-30) mmol/L Anion Gap mmol/L BUN (7-17) mg/dL Creatinine (0.7-1.2) mg/dL Estimated GFR ml/min BUN/Creatinine Ratio % Glucose (65-100) mg/dL POC Glucose 185 H (70-105) Lactic Acid (0.7-2.0) mmol/L Calcium (8.4-10.2) mg/dL Total Bilirubin (0.1-1.2) mg/dL AST (5-40) units/L ALT (7-56) units/L Alkaline Phosphatase (35-129) units/L Ammonia (25-60) umol/L Troponin T (0.00-0.029) ng/mL NT-Pro-B Natriuret Pep 743.2 H (0-450) pg/mL Total Protein (6.3-8.2) g/dL Albumin (3.9-5) g/dL Albumin/Globulin Ratio % Triglycerides (2-149) mg/dL Cholesterol (50-199) mg/dL LDL Cholesterol Direct (50-130) mg/dL HDL Cholesterol (40-59) mg/dL Cholesterol/HDL Ratio % HCG, Qual (Negative) Urine Color Yellow (Yellow) Urine Turbidity Slightly-cloudy (Clear) Urine pH 5.0 (5.0-7.0) Ur Specific [place] 1.018 (1.003-1.030) Urine Protein <15 mg/dl (Negative) mg/dL Urine Glucose (UA) 50 (Negative) mg/dL Urine Ketones Neg (Negative) mg/dL Urine Blood Sm (Negative) Urine Nitrite Neg (Negative) Urine Bilirubin Neg (Negative) Urine Urobilinogen < 2.0 (<2.0) mg/dL Ur Leukocyte Esterase Tr (Negative) Urine WBC (Auto) 7.0 H (0.0-6.0) /HPF Urine RBC (Auto) 6.0 (0.0-6.0) /HPF U Epithel Cells (Auto) < 1.0 (0-13.0) /HPF Urine Bacteria (Auto) 1+ (Negative) /HPF Urine Yeast (Budding) 1+ /HPF //18 Range/Units 08:11 WBC (4.5-11.0) K/mm3 RBC (3.65-5.03) M/mm3 Hgb (10.1-14.3) gm/dl Hct (30.3-42.9) % MCV (79-97) fl MCH (28-32) pg MCHC (30-34) % RDW (13.2-15.2) % Plt Count (140-440) K/mm3 Curry % (Auto) Add Manual Diff Total Counted Seg Neuts % (Manual) (40.0-70.0) % Band Neutrophils % % Lymphocytes % (Manual) (13.4-35.0) % Reactive Lymphs % (Man) % Monocytes % (Manual) (0.0-7.3) % Eosinophils % (Manual) (0.0-4.3) % Basophils % (Manual) (0.0-1.8) % Metamyelocytes % % Myelocytes % % Promyelocytes % % Blast Cells % % Nucleated RBC % Seg Neutrophils # Man (1.8-7.7) K/mm3 Band Neutrophils # K/mm3 Lymphocytes # (Manual) (1.2-5.4) K/mm3 Abs React Lymphs (Man) K/mm3 Monocytes # (Manual) (0.0-0.8) K/mm3 Eosinophils # (Manual) (0.0-0.4) K/mm3 Basophils # (Manual) (0.0-0.1) K/mm3 Metamyelocytes # K/mm3 Myelocytes # K/mm3 Promyelocytes # K/mm3 Blast Cells # K/mm3 WBC Morphology Hypersegmented Neuts Hyposegmented Neuts Hypogranular Neuts Smudge Cells Toxic Granulation Toxic Vacuolation Dohle Bodies Pelger-Huet Anomaly Juliet Rods Platelet Estimate Clumped Platelets Plt Clumps, EDTA Large Platelets Giant Platelets Platelet Satelliting Plt Morphology Comment RBC Morphology Dimorphic RBCs Polychromasia Hypochromasia Poikilocytosis Anisocytosis Microcytosis Macrocytosis Spherocytes Pappenheimer Bodies Sickle Cells Target Cells Tear Drop Cells Ovalocytes Helmet Cells Adam-[place] Bodies [place] Rings Dion Cells Bite Cells Crenated Cell Elliptocytes Acanthocytes (Spur) Rouleaux Hemoglobin C Crystals Schistocytes Malaria parasites Gume Bodies Hem Pathologist Commnt PT (12.2-14.9) Sec. INR (0.87-1.13) APTT (24.2-36.6) Sec. Sodium (137-145) mmol/L Potassium (3.6-5.0) mmol/L Chloride (98-107) mmol/L Carbon Dioxide (22-30) mmol/L Anion Gap mmol/L BUN (7-17) mg/dL Creatinine (0.7-1.2) mg/dL Estimated GFR ml/min BUN/Creatinine Ratio % Glucose (65-100) mg/dL POC Glucose (70-105) Lactic Acid (0.7-2.0) mmol/L Calcium (8.4-10.2) mg/dL Total Bilirubin (0.1-1.2) mg/dL AST (5-40) units/L ALT (7-56) units/L Alkaline Phosphatase (35-129) units/L Ammonia (25-60) umol/L Troponin T (0.00-0.029) ng/mL NT-Pro-B Natriuret Pep (0-450) pg/mL Total Protein (6.3-8.2) g/dL Albumin (3.9-5) g/dL Albumin/Globulin Ratio % Triglycerides (2-149) mg/dL Cholesterol (50-199) mg/dL LDL Cholesterol Direct (50-130) mg/dL HDL Cholesterol (40-59) mg/dL Cholesterol/HDL Ratio % HCG, Qual Negative (Negative) Urine Color (Yellow) Urine Turbidity (Clear) Urine pH (5.0-7.0) Ur Specific [place] (1.003-1.030) Urine Protein (Negative) mg/dL Urine Glucose (UA) (Negative) mg/dL Urine Ketones (Negative) mg/dL Urine Blood (Negative) Urine Nitrite (Negative) Urine Bilirubin (Negative) Urine Urobilinogen (<2.0) mg/dL Ur Leukocyte Esterase (Negative) Urine WBC (Auto) (0.0-6.0) /HPF Urine RBC (Auto) (0.0-6.0) /HPF U Epithel Cells (Auto) (0-13.0) /HPF Urine Bacteria (Auto) (Negative) /HPF Urine Yeast (Budding) /HPF Critical Care Time: Yes Critical care time in (mins) excluding proc time.: 30 Critical care attestation.: If time is entered above; I have spent that time in minutes in the direct care of this critically ill patient, excluding procedure time. ED Disposition Clinical Impression: Acute renal failure, Acute hyperkalemia, Altered mental status Disposition: 09 OP ADMIT IP TO THIS HOSP Is pt being admited?: Yes Condition: Stable Referrals: JOSEPH RITCHIE MD [Primary Care Provider] - 3-5 Days
[2018-01-01] MEDS ORDERED: XOPENEX IH ONE (07:38)
[2018-01-01] MEDS ORDERED: ATROVENT IH ONE (07:38)
--- NOTE | 2018-01-01 07:54 | XRay Report ---
AP CHEST: HISTORY: Altered mental status AP view of the chest demonstrates a normal mediastinal and cardiac contour with clear lungs and normal bony and soft tissue structures. Right [id number] and left IJ venous catheter have been removed since 04/06/17. IMPRESSION: Unremarkable AP chest. Patchy bilateral lung infiltrates have resolved since 04/06/17.
[2018-01-01 08:11] LABS: Hematocrit 28.5 % (30.3-42.9); Hemoglobin 9.2 gm/dl (10.1-14.3); Mean Corpuscular HGB Conc 32 % (30-34); Mean Corpuscular Hemoglobin 28 pg (28-32); Mean Corpuscular Volume 86 fl (79-97); Platelet Count 353 K/mm3 (140-440); Red Blood Count 3.33 M/mm3 (3.65-5.03); Red Cell Distribution Width 17.7 % (13.2-15.2)
[2018-01-01] MEDS: ZOFRAN IV ONE ×2 (08:20→08:30)
[2018-01-01 08:25] LABS: Albumin 2.9 g/dL (3.9-5); Calcium 7.4 mg/dL (8.4-10.2)
[2018-01-01 08:28] LABS: INR 1.4 (0.87-1.13)
[2018-01-01 08:29] LABS: Partial Thromboplastin Time 39.8 Sec. (24.2-36.6)
[2018-01-01] MEDS ORDERED: D50W (25GM) Syringe IV ONE (08:29)
[2018-01-01] MEDS ORDERED: CALCIUM GLUCONATE 1,000 MG in NACL 0.9% 100 ML IV ONE (08:29)
[2018-01-01] MEDS ORDERED: HumuLIN R IV ONE (08:29)
[2018-01-01] MEDS ORDERED: KIONEX PR ONE (08:30)
[2018-01-01] MEDS ORDERED: PROVENTIL IH ONE (08:31)
[2018-01-01 08:40] LABS: Chol/HDL Ratio 6.61 %
[2018-01-01] MEDS ORDERED: NACL 0.9% 100 ML IV PRN (08:42)
--- NOTE | 2018-01-01 09:01 | History and Physical Report ---
History of Present Illness Date of examination: 01/01/18 Chief complaint: Altered mental status History of present illness: 44-year-old -Swedish female with past medical history significant for hypertension, diabetes mellitus, morbid obesity, drug overdose brought to ED via EMS for altered mental status. Patient was not able to give history and history is obtained from the . Patient had been taking narcotic pain medications for her chronic back pain. Patient did have any seizure-like activity. Per her the patient has history of VIVI due to drug overdose and recovered. Patient's baseline creatinine is 1.2. In the emergency department patient was in acute renal failure with potassium level of 8.6 and patient was given hyperkalemia cocktail and admitted to the floor for emergency hemodialysis. Review of system couldn't be obtained because the patient's altered mental status. Past History Past Medical History: diabetes, hypertension, other (morbid obesity) Past Surgical History: Other (couldn't be obtained because of AMS) Family history: other (couldn't be obtained because of AMS) Medications and Allergies Allergies Allergy/AdvReac Type Severity Reaction Status Date / Time ketorolac tromethamine Allergy Unknown Verified 08/16/17 05:28 [From Toradol] meperidine HCl [From Demerol] Allergy Shortness Verified 08/16/17 05:28 of Breath Home Medications Medication Instructions Recorded Confirmed Last Taken Type Lisinopril [Zestril TAB] 10 mg PO QDAY 05/19/14 11/24/16 05/18/14 History Insulin NPH Hum/Reg Insulin Hm 30 unit SQ QAM 10/05/15 11/24/16 Unknown History [HumuLIN 70-30 Vial] Insulin NPH Hum/Reg Insulin Hm 40 unit SQ QPM 10/05/15 11/24/16 Unknown History [HumuLIN 70-30 Vial] Sertraline [Zoloft] 100 mg PO QDAY 10/05/15 11/24/16 Unknown History methOCARBAMOL [Robaxin TAB] 500 mg PO BID 07/18/16 11/24/16 Unknown History Pantoprazole [Protonix TAB] 40 mg PO QDAY #30 tablet 09/06/16 11/24/16 Unknown Rx Labetalol [Normodyne TAB] 100 mg PO BID #60 tablet 09/09/16 11/24/16 Unknown Rx Ondansetron [Zofran Odt] 4 mg PO Q6H #14 tab.rapdis 09/09/16 11/24/16 Unknown Rx Metoclopramide [Reglan] 10 mg PO TID PRN #20 tab 09/13/16 11/24/16 Unknown Rx Omeprazole Magnesium [PriLOSEC Otc] 20 mg PO QDAY #14 tablet. 12/09/16 Unknown Rx Dicyclomine [Bentyl] 20 mg PO QID #30 tablet 01/28/17 Unknown Rx Ondansetron [Zofran Odt] 4 mg PO Q6H #14 tab.rapdis 02/11/17 Unknown Rx ALBUTEROL NEB's [Proventil 0.083% 2.5 mg IH Q3HRT PRN #30 nebu 04/11/17 Unknown Rx NEBS] Detemir (Nf) [Levemir (Nf)] 5 units SUB-Q QAMDIAB #30 units 04/11/17 Unknown Rx Insulin Aspart [NovoLOG Flexpen] 1 dose SQ AC #1 pen 04/11/17 Unknown Rx Ondansetron [Zofran Oral Liq] 4 mg PO Q4H PRN #1 bottle 04/11/17 Unknown Rx Sodium Bicarbonate 650 mg PO BID #60 tablet 04/11/17 Unknown Rx oxyCODONE /ACETAMINOPHEN [Percocet 1 tab PO Q4H PRN #30 tablet 04/11/17 Unknown Rx 5/325 mg] Promethazine [Phenergan TAB] 25 mg PO Q6HR PRN #10 tab 07/27/17 Unknown Rx Promethazine [Phenergan TAB] 25 mg PO Q6HR PRN #30 tab 08/09/17 Unknown Rx Promethazine [Phenergan TAB] 25 mg PO Q6HR PRN #30 tab 09/12/17 Unknown Rx Promethazine [Phenergan TAB] 25 mg PO Q8HR PRN #12 tab 11/11/17 Unknown Rx Ondansetron [Zofran Odt] 8 mg PO Q8HR PRN #14 tab.rapdis 11/24/17 Unknown Rx oxyCODONE /ACETAMINOPHEN [Percocet 1 tab PO Q6HR PRN #10 tablet 11/24/17 Unknown Rx 5/325] Promethazine [Phenergan TAB] 25 mg PO Q8HR PRN #16 tab 12/03/17 Unknown Rx Famotidine [Pepcid] 20 mg PO BID PRN #30 tablet 12/08/17 Unknown Rx Ondansetron [Zofran Odt] 4 mg PO Q8H PRN #12 tab.rapdis 12/08/17 Unknown Rx Active Meds: Active Medications Epoetin Wayne (Procrit) 10,000 unit IV KIT PRN PRN Reason: hemodialysis Heparin Sodium (Porcine) (Heparin) 5,000 unit IV KIT PRN PRN Reason: hemodialysis Sodium Chloride (Nacl 0.9% 1000 Ml) 1,000 mls @ 125 mls/hr IV ONCE ONE Stop: 01/01/18 15:30 Sodium Chloride (Nacl 0.9%) 100 mls @ 999 mls/hr IV KIT PRN PRN Reason: Hypotension Exam - Physical Exam Narrative exam: Not in cardiopulmonary distress. The patient appeared well nourished and normally developed. Vital signs as documented. Head exam is unremarkable. No scleral icterus . Neck is without jugular venous distension, thyromegaly, or carotid bruits. Lungs are clear to auscultation. Cardiac exam reveals regular rate and Rhythm. First and second heart sounds normal. No murmurs, rubs or gallops. Abdominal exam reveals normal bowel sounds, no masses, no organomegaly and no aortic enlargement. Extremities are nonedematous and both femoral and pedal pulses are normal. 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 - Constitutional Vitals: Temp Pulse Resp BP Pulse Ox 97.9 F 94 H 18 120/97 99 01/01/18 05:51 01/01/18 05:51 01/01/18 05:51 01/01/18 05:51 01/01/18 05:51 Results - Labs CBC & Chem 7: 01/01/18 07:48 01/01/18 09:26 Labs: Laboratory Last Values WBC 4.3 K/mm3 (4.5-11.0) L 01/01/18 07:48 RBC 3.33 M/mm3 (3.65-5.03) L 01/01/18 07:48 Hgb 9.2 gm/dl (10.1-14.3) L 01/01/18 07:48 Hct 28.5 % (30.3-42.9) L 01/01/18 07:48 MCV 86 fl (79-97) 01/01/18 07:48 MCH 28 pg (28-32) 01/01/18 07:48 MCHC 32 % (30-34) 01/01/18 07:48 RDW 17.7 % (13.2-15.2) H 01/01/18 07:48 Plt Count 353 K/mm3 (140-440) 01/01/18 07:48 [place] % (Auto) Glass Etcher 01/01/18 07:48 PT 18.0 Sec. (12.2-14.9) H 01/01/18 07:48 INR 1.40 (0.87-1.13) H 01/01/18 07:48 APTT 39.8 Sec. (24.2-36.6) H 01/01/18 07:48 Sodium 131 mmol/L (137-145) L 01/01/18 07:48 Potassium 8.6 mmol/L (3.6-5.0) H* 01/01/18 07:48 Chloride 90.8 mmol/L (98-107) L 01/01/18 07:48 Carbon Dioxide 12 mmol/L (22-30) L 01/01/18 07:48 Anion Gap 37 mmol/L 01/01/18 07:48 BUN 127 mg/dL (7-17) H 01/01/18 07:48 Creatinine 9.6 mg/dL (0.7-1.2) H 01/01/18 07:48 Estimated GFR 5 ml/min 01/01/18 07:48 BUN/Creatinine Ratio 13 % 01/01/18 07:48 Glucose 189 mg/dL (65-100) H 01/01/18 07:48 Lactic Acid 1.30 mmol/L (0.7-2.0) 01/01/18 07:48 Calcium 7.4 mg/dL (8.4-10.2) L 01/01/18 07:48 Total Bilirubin 0.30 mg/dL (0.1-1.2) 01/01/18 07:48 AST 7 units/L (5-40) 01/01/18 07:48 ALT 8 units/L (7-56) 01/01/18 07:48 Alkaline Phosphatase 127 units/L (35-129) 01/01/18 07:48 Ammonia 28.0 umol/L (25-60) 01/01/18 07:48 Troponin T 0.068 ng/mL (0.00-0.029) H 01/01/18 07:48 NT-Pro-B Natriuret Pep 743.2 pg/mL (0-450) H 01/01/18 07:48 Total Protein 7.4 g/dL (6.3-8.2) 01/01/18 07:48 Albumin 2.9 g/dL (3.9-5) L 01/01/18 07:48 Albumin/Globulin Ratio 0.6 % 01/01/18 07:48 Triglycerides 125 mg/dL (2-149) 01/01/18 07:48 Cholesterol 119 mg/dL (50-199) 01/01/18 07:48 LDL Cholesterol Direct 46 mg/dL (50-130) L 01/01/18 07:48 HDL Cholesterol 18 mg/dL (40-59) L 01/01/18 07:48 Cholesterol/HDL Ratio 6.61 % 01/01/18 07:48 HCG, Qual Negative (Negative) 01/01/18 08:11 Assessment and Plan Assessment and plan: AMS, acute toxic encephalopathy Acute renal failure Hyperkalemia Morbid obesity Volume overloadoverload DM with hyperglycemia - Patient was treated with hyperkalemia cocktail, nephrology was consulted and emergency hemodialysis done. - UDS is positive - SSI DVT prophylaxis - heparin Disposition - Admit to ICU The high probability of a clinically significant, sudden or life threatening deterioration of the [Renal, neurology] system(s) required my full and direct attention, intervention and personal management. The aggregate critical care time was [43] minutes. This time is in addition to time spent performing reported procedures but includes the following: [x] Data Review and interpretation [x] Patient assessment and monitoring of vital signs [x] Documentation [x] Medication orders and management Advance Directives: Yes VTE prophylaxis?: Chemical Plan of care discussed with patient/family: Yes
[2018-01-01 09:43] LABS: Basophils % (Manual) 0 % (0.0-1.8); Eosinophils % (Manual) 0 % (0.0-4.3); Total Cells Counted 100
[2018-01-01 09:44] LABS: Anisocytosis 1+; Band Neutrophils # (Manual) 0.5 K/mm3; Monocytes % (Manual) 17 % (0.0-7.3)
[2018-01-01 09:54] LABS: Bacteria,Urine 1+ /HPF (Negative); Bilirubin,Urine NEG (Negative); Blood,Urine SM (Negative); Color,Urine Yellow (Yellow); Protein,Urine <15 mg/dL mg/dL (Negative); Urobilinogen,Urine < 2.0 mg/dL (<2.0)
--- NOTE | 2018-01-01 10:12 | Cat Scan Report ---
CT HEAD WITHOUT CONTRAST: HISTORY: Altered mental status. TECHNIQUE: Sequential 2.5mm CT images. COMPARISON: 04/03/17. FINDINGS: Cerebral Parenchyma: Within normal limits. Cerebellum: Within normal limits. Brainstem: Within normal limits. Ventricles: Normal. Sella: Normal. Extra-axial spaces: Normal. Basal Cisterns: Normal. Intracranial Hemorrhage: None. Midline Shift: None. Calvarium: Normal. Sinuses: Normal. Mastoid Air Cells: Normal. Visualized Orbits: Normal. IMPRESSION: Cranial CT scan within normal limits.
[2018-01-01] MEDS ORDERED: XYLOCAINE 1%/ EPI 1:100,000 INFILTRATI ONE (10:27)
[2018-01-01] MEDS ORDERED: HEPARIN/NS 5000 UNIT/500ML(CATH LAB) 500 ML IR ONE (10:27)
[2018-01-01] MEDS: HEPARIN 10,000 UNITS/10 ML ONE ×2 (10:46→10:47)
--- NOTE | 2018-01-01 10:55 | Event Note ---
Date: 01/01/18 Dialysis catheter placement requested by ER/nephrology for hyperkalemia.
--- NOTE | 2018-01-01 10:58 | Operative Report ---
Operative Report Operative Report: Procedure: 1. Right internal jugular non-tunneled dialysis catheter placement 2. Ultrasound guided puncture of the right internal jugular vein. Date: 01/01/2018 Physician: Slava Sanchez MD Indication: 42 year old female with renal failure and hyperkalemia, in need of dialysis. Technique: The patient was placed in the supine position and prepped and draped in the usual sterile fashion. A timeout was performed. Local anesthetic was administered. Under direct ultrasound guidance, the right internal jugular vein was accessed with a 21-gauge needle. Via a micropuncture technique, an .035 wire was advanced. After serial tissue dilation, the dialysis catheter was advanced over the wire. Vacuum aspiration and flushing was performed. Each lumen was instilled with heparin. The catheter was secured to the skin with 2-0 Ethilon suture. Sterile dressings were placed, and the patient was transported from the procedure area in stable condition. Findings: 1. Ultrasound demonstrates a patent and compressible right internal jugular vein. 2. There is successful placement of a 16 cm non-tunneled dialysis catheter via the right internal jugular vein. 3. Each lumen flushes and aspirates briskly. 4. Positioning of the catheter tip within the right atrium will be confirmed by Xray
[2018-01-01 11:22] LABS: Calcium 7.3 mg/dL (8.4-10.2)
[2018-01-01 11:27] LABS: Amphetamine Screen,Urine PRESUMPTIVE NEGATIVE; Benzodiazepines Screen,Urine PRESUMPTIVE NEGATIVE; Cannabinoid Screen,Urine PRESUMPTIVE NEGATIVE; Cocaine Screen,Urine PRESUMPTIVE NEGATIVE; Methadone Screen,Urine PRESUMPTIVE NEGATIVE
[2018-01-01 11:40] LABS: Opiate Screen,Urine PRESUMPTIVE POSITIVE
[2018-01-01] MEDS ORDERED: LEVOPHED 8 MG in NACL 0.9% 250ML 242 ML IV SCH (14:00)
[2018-01-01] MEDS ORDERED: D50W (25GM) Syringe IV PRN (14:20)
--- NOTE | 2018-01-01 15:17 | Consultation ---
History of Present Illness Consult date: 01/01/18 Reason for consult: other (AMS, congestive heart failure, fluid overload, end- stage renal disease) History of present illness: Called to evaluate 42-year-old -N[place]ian Female admitted to the ICU with history of end-stage renal disease, AMS and respiratory distress. The patient is currently confused no family available at the bedside for further history. Chart review does show that she had prior history or renal problems and was given pain medications previously for allegedly chronic back problems. Admission notes shows that she took 15 mg of morphine and after that she became' s progressively confuse and was referred then to the hospital for further care. Admission evaluation suggestED evidence of fluid overload with chest congestion and she had been admitted to the ICU for hemodialysis and emergent care. In addition, potassium was 8.6 mEq and she was given given an acute hyperkalemia cocktail and hemodialysis followed. Reportedly prior history of VIVI secondary to drugs in the past. Currently the patient is on the ICU getting her hemodialysis. She remains confused but bedside oximetry is 100% on nasal cannula Past History Past Medical History: diabetes, hypertension, other (morbid obesity) Past Surgical History: Other (couldn't be obtained because of AMS) Family history: other (couldn't be obtained because of AMS) Medications and Allergies Allergies Allergy/AdvReac Type Severity Reaction Status Date / Time ketorolac tromethamine Allergy Unknown Verified 08/16/17 05:28 [From Toradol] meperidine HCl [From Demerol] Allergy Shortness Verified 08/16/17 05:28 of Breath Home Medications Medication Instructions Recorded Confirmed Last Taken Type Lisinopril [Zestril TAB] 10 mg PO QDAY 05/19/14 11/24/16 05/18/14 History Insulin NPH Hum/Reg Insulin Hm 30 unit SQ QAM 10/05/15 11/24/16 Unknown History [HumuLIN 70-30 Vial] Insulin NPH Hum/Reg Insulin Hm 40 unit SQ QPM 10/05/15 11/24/16 Unknown History [HumuLIN 70-30 Vial] Sertraline [Zoloft] 100 mg PO QDAY 10/05/15 11/24/16 Unknown History methOCARBAMOL [Robaxin TAB] 500 mg PO BID 07/18/16 11/24/16 Unknown History Pantoprazole [Protonix TAB] 40 mg PO QDAY #30 tablet 09/06/16 11/24/16 Unknown Rx Labetalol [Normodyne TAB] 100 mg PO BID #60 tablet 09/09/16 11/24/16 Unknown Rx Ondansetron [Zofran Odt] 4 mg PO Q6H #14 tab.rapdis 09/09/16 11/24/16 Unknown Rx Metoclopramide [Reglan] 10 mg PO TID PRN #20 tab 09/13/16 11/24/16 Unknown Rx Omeprazole Magnesium [PriLOSEC Otc] 20 mg PO QDAY #14 tablet.dr 12/09/16 Unknown Rx Dicyclomine [Bentyl] 20 mg PO QID #30 tablet 01/28/17 Unknown Rx Ondansetron [Zofran Odt] 4 mg PO Q6H #14 tab.rapdis 02/11/17 Unknown Rx ALBUTEROL NEB's [Proventil 0.083% 2.5 mg IH Q3HRT PRN #30 nebu 04/11/17 Unknown Rx NEBS] Detemir (Nf) [Levemir (Nf)] 5 units SUB-Q QAMDIAB #30 units 04/11/17 Unknown Rx Insulin Aspart [NovoLOG Flexpen] 1 dose SQ AC #1 pen 04/11/17 Unknown Rx Ondansetron [Zofran Oral Liq] 4 mg PO Q4H PRN #1 bottle 04/11/17 Unknown Rx Sodium Bicarbonate 650 mg PO BID #60 tablet 04/11/17 Unknown Rx oxyCODONE /ACETAMINOPHEN [Percocet 1 tab PO Q4H PRN #30 tablet 04/11/17 Unknown Rx 5/325 mg] Promethazine [Phenergan TAB] 25 mg PO Q6HR PRN #10 tab 07/27/17 Unknown Rx Promethazine [Phenergan TAB] 25 mg PO Q6HR PRN #30 tab 08/09/17 Unknown Rx Promethazine [Phenergan TAB] 25 mg PO Q6HR PRN #30 tab 09/12/17 Unknown Rx Promethazine [Phenergan TAB] 25 mg PO Q8HR PRN #12 tab 11/11/17 Unknown Rx Ondansetron [Zofran Odt] 8 mg PO Q8HR PRN #14 tab.rapdis 11/24/17 Unknown Rx oxyCODONE /ACETAMINOPHEN [Percocet 1 tab PO Q6HR PRN #10 tablet 11/24/17 Unknown Rx 5/325] Promethazine [Phenergan TAB] 25 mg PO Q8HR PRN #16 tab 12/03/17 Unknown Rx Famotidine [Pepcid] 20 mg PO BID PRN #30 tablet 12/08/17 Unknown Rx Ondansetron [Zofran Odt] 4 mg PO Q8H PRN #12 tab.rapdis 12/08/17 Unknown Rx Active Meds: Active Medications Dextrose (D50w (25gm) Syringe) 50 ml IV PRN PRN PRN Reason: Hypoglycemia Epoetin Wayne (Procrit) 10,000 unit IV KIT PRN PRN Reason: hemodialysis Famotidine (Pepcid) 20 mg IV BID ELISA Heparin Sodium (Porcine) (Heparin) 5,000 unit IV KIT PRN PRN Reason: hemodialysis Heparin Sodium (Porcine) (Heparin) 5,000 unit SUB-Q Q12HR ELISA Sodium Chloride (Nacl 0.9% 1000 Ml) 1,000 mls @ 125 mls/hr IV ONCE ONE Stop: 01/01/18 15:30 Last Admin: 01/01/18 08:20 Dose: 125 mls/hr Sodium Chloride (Nacl 0.9%) 100 mls @ 999 mls/hr IV KIT PRN PRN Reason: Hypotension Norepinephrine 8 mg/ Sodium (Chloride) 250 mls @ 3.75 mls/hr IV TITR ELISA; Protocol Insulin Human Lispro (Humalog) 0 unit SUB-Q ACHS ELISA; Protocol Review of Systems ROS unobtainable: due to mental status All systems: negative Physical Examination Vital signs: Vital Signs Temp Pulse Resp BP Pulse Ox 97.9 F 94 H 18 120/97 99 01/01/18 05:51 01/01/18 05:51 01/01/18 05:51 01/01/18 05:51 01/01/18 05:51 General appearance: asleep, other Eyes: non-icteric ENT: oropharynx moist Neck: no JVD, other (vbraod neck) Ascultation: Bilateral: wheezes, rales Cardiovascular: regular rate and rhythm Gastrointestinal: normoactive bowel sounds, non-distended Extremities: no cyanosis, no edema Musculoskeletal: no deformities unable to assess, other Results - Laboratory Findings CBC and BMP: 03/13/18 07:48 01/01/18 09:26 PT/INR, D-dimer PT 18.0 Sec. (12.2-14.9) H 01/01/18 07:48 INR 1.40 (0.87-1.13) H 01/01/18 07:48 Abnormal lab findings: Abnormal Labs 01/01/18 01/01/18 01/01/18 07:48 07:48 07:48 WBC 4.3 L RBC 3.33 L Hgb 9.2 L Hct 28.5 L RDW 17.7 H Monocytes % (Manual) 17 H Lymphocytes # (Manual) 0.8 L PT 18.0 H INR 1.40 H APTT 39.8 H Sodium 131 L Potassium 8.6 H* Chloride 90.8 L Carbon Dioxide 12 L BUN 127 H Creatinine 9.6 H Glucose 189 H POC Glucose Calcium 7.4 L Troponin T NT-Pro-B Natriuret Pep Albumin 2.9 L LDL Cholesterol Direct HDL Cholesterol Urine WBC (Auto) 01/01/18 01/01/18 01/01/18 07:48 07:48 08:00 WBC RBC Hgb Hct RDW Monocytes % (Manual) Lymphocytes # (Manual) PT INR APTT Sodium Potassium Chloride Carbon Dioxide BUN Creatinine Glucose POC Glucose Calcium Troponin T 0.068 H NT-Pro-B Natriuret Pep 743.2 H Albumin LDL Cholesterol Direct 46 L HDL Cholesterol 18 L Urine WBC (Auto) 7.0 H 01/01/18 01/01/18 08:05 09:26 WBC RBC Hgb Hct RDW Monocytes % (Manual) Lymphocytes # (Manual) PT INR APTT Sodium 135 L Potassium 6.7 H* D Chloride 93.3 L Carbon Dioxide 10 L BUN 127 H Creatinine 9.4 H Glucose 185 H POC Glucose 185 H Calcium 7.3 L Troponin T NT-Pro-B Natriuret Pep Albumin LDL Cholesterol Direct HDL Cholesterol Urine WBC (Auto) Assessment and Plan Congestive heart failure with acute decompensation Acute kidney injury Severe hyperkalemia AMS-probably drug induced secondary to morphine in this context of end-stage renal disease, poor clearance. Also unclear regarding the amount and frequency of use Active bronchospasm with chest congestion. Needs treatment. Secondary to the above Severe morbid obesity Obesity hypoventilation syndromes/RISSA also a consideration Hypertension Chronic pain syndrome Recommendations I agree hemodialysis. Serial electrolytes Cardiorespiratory monitoring continue oxygen at current level. Albuterol 2.5 milligram nebulizations every 4-6 hours with or without ipratropium Solu-Medrol 40-60 mg IV every 6-8 hours Oxygen support via nasal cannula or mask to maintain oximetry over 92% DVT prophylaxis In case of respiratory deterioration of the diabetes and consider initiating BiPAP therapy Discussed with nurse at the bedside. Also with staff. The family members not available. Critical care time was 40 minutes of [id number] evaluation and coordination of care
--- NOTE | 2018-01-01 17:33 | Consultation ---
History of Present Illness - Reason for Consult Consult date: 01/01/18 acute renal failure Requesting physician: AGUSTINA MARQUEZ - History of Present Illness 42 year old -Japanese lady with a history diabetes mellitus, hypertension and chronic kidney disease with known to our service. Patient was seen in March 2017 with acute kidney injury. At the time of discharge, creatinine was back down to 1.3 mg/dL. Patient presents on account of 3 day History of confusion and weakness with altered mental status. There was associated shortness of breath. She had recently been started on morphine and Benadryl. Other details not available as family is not available to give history and patient is unable to. Past History Past Medical History: diabetes, heart failure, hypertension, other (morbid obesity, chronic kidney disease, asthma) Past Surgical History: Other (couldn't be obtained because of AMS) Social history: prescription drug abuse, other (unable to obtain due to mental status) Family history: other (couldn't be obtained because of AMS) Medications and Allergies Allergies Allergy/AdvReac Type Severity Reaction Status Date / Time ketorolac tromethamine Allergy Unknown Verified 08/16/17 05:28 [From Toradol] meperidine HCl [From Demerol] Allergy Shortness Verified 08/16/17 05:28 of Breath Home Medications Medication Instructions Recorded Confirmed Last Taken Type Lisinopril [Zestril TAB] 10 mg PO QDAY 05/19/14 01/01/18 05/18/14 History Insulin NPH Hum/Reg Insulin Hm 30 unit SQ QAM 10/05/15 01/01/18 Unknown History [HumuLIN 70-30 Vial] Insulin NPH Hum/Reg Insulin Hm 40 unit SQ QPM 10/05/15 01/01/18 Unknown History [HumuLIN 70-30 Vial] Sertraline [Zoloft] 100 mg PO QDAY 10/05/15 01/01/18 Unknown History methOCARBAMOL [Robaxin TAB] 500 mg PO BID 07/18/16 01/01/18 Unknown History Pantoprazole [Protonix TAB] 40 mg PO QDAY #30 tablet 09/06/16 01/01/18 Unknown Rx Labetalol [Normodyne TAB] 100 mg PO BID #60 tablet 09/09/16 01/01/18 Unknown Rx Ondansetron [Zofran Odt] 4 mg PO Q6H #14 tab.rapdis 09/09/16 01/01/18 Unknown Rx Metoclopramide [Reglan] 10 mg PO TID PRN #20 tab 09/13/16 01/01/18 Unknown Rx Omeprazole Magnesium [PriLOSEC Otc] 20 mg PO QDAY #14 tablet. 12/09/16 Unknown Rx Dicyclomine [Bentyl] 20 mg PO QID #30 tablet 01/28/17 01/01/18 Unknown Rx Ondansetron [Zofran Odt] 4 mg PO Q6H #14 tab.rapdis 02/11/17 01/01/18 Unknown Rx ALBUTEROL NEB's [Proventil 0.083% 2.5 mg IH Q3HRT PRN #30 nebu 04/11/17 Unknown Rx NEBS] Detemir (Nf) [Levemir (Nf)] 5 units SUB-Q QAMDIAB #30 units 04/11/17 01/01/18 Unknown Rx Insulin Aspart [NovoLOG Flexpen] 1 dose SQ AC #1 pen 04/11/17 01/01/18 Unknown Rx Ondansetron [Zofran Oral Liq] 4 mg PO Q4H PRN #1 bottle 04/11/17 01/01/18 Unknown Rx Sodium Bicarbonate 650 mg PO BID #60 tablet 04/11/17 01/01/18 Unknown Rx oxyCODONE /ACETAMINOPHEN [Percocet 1 tab PO Q4H PRN #30 tablet 04/11/17 Unknown Rx 5/325 mg] Promethazine [Phenergan TAB] 25 mg PO Q6HR PRN #10 tab 07/27/17 01/01/18 Unknown Rx Promethazine [Phenergan TAB] 25 mg PO Q6HR PRN #30 tab 08/09/17 01/01/18 Unknown Rx Promethazine [Phenergan TAB] 25 mg PO Q6HR PRN #30 tab 09/12/17 01/01/18 Unknown Rx Promethazine [Phenergan TAB] 25 mg PO Q8HR PRN #12 tab 11/11/17 01/01/18 Unknown Rx Ondansetron [Zofran Odt] 8 mg PO Q8HR PRN #14 tab.rapdis 11/24/17 01/01/18 Unknown Rx oxyCODONE /ACETAMINOPHEN [Percocet 1 tab PO Q6HR PRN #10 tablet 11/24/17 Unknown Rx 5/325] Promethazine [Phenergan TAB] 25 mg PO Q8HR PRN #16 tab 12/03/17 01/01/18 Unknown Rx Famotidine [Pepcid] 20 mg PO BID PRN #30 tablet 12/08/17 01/01/18 Unknown Rx Ondansetron [Zofran Odt] 4 mg PO Q8H PRN #12 tab.rapdis 12/08/17 01/01/18 Unknown Rx Active Meds: Active Medications Albuterol (Proventil) 2.5 mg IH Q6HRT ELISA Dextrose (D50w (25gm) Syringe) 50 ml IV PRN PRN PRN Reason: Hypoglycemia Epoetin Wayne (Procrit) 10,000 unit IV KIT PRN PRN Reason: hemodialysis Famotidine (Pepcid) 20 mg IV BID ELISA Heparin Sodium (Porcine) (Heparin) 5,000 unit IV KIT PRN PRN Reason: hemodialysis Heparin Sodium (Porcine) (Heparin) 5,000 unit SUB-Q Q12HR ELISA Sodium Chloride (Nacl 0.9%) 100 mls @ 999 mls/hr IV KIT PRN PRN Reason: Hypotension Norepinephrine 8 mg/ Sodium (Chloride) 250 mls @ 3.75 mls/hr IV TITR ELISA; Protocol Insulin Human Lispro (Humalog) 0 unit SUB-Q ACHS ELISA; Protocol Methylprednisolone Sodium Succinate (Solu-Medrol) 40 mg IV Q8HR ELISA Review of Systems ROS unobtainable: due to mental status Exam - Vital Signs Vital signs: Vital Signs Temp Pulse Resp BP Pulse Ox 97.9 F 94 H 18 120/97 99 01/01/18 05:51 01/01/18 05:51 01/01/18 05:51 01/01/18 05:51 01/01/18 05:51 - Physical Exam Narrative exam: Morbidly obese middle-aged -Japanese female In bed. Making incomprehensible sounds HEENT: NCAT, pink oral mucous membrane Neck: Supple, no venous distention CVS: S1S2 RRR with no murmur, rub or gallop Chest: Clear to auscultation anteriorly with diminished breath sounds Abdomen: Obese, soft, nontender, no organomegaly, bowel sounds are present Extremities: No edema Skin, warm and dry, hyperpigmentation in the legs Neuro: Lethargic, making incomprehensible sounds, not following commands Results - Lab Results 01/02/18 05:00 01/02/18 05:00 Most recent lab results Calcium 7.3 mg/dL (8.4-10.2) L 01/01/18 09:26 Assessment and Plan - Patient Problems (1) Acute kidney injury superimposed on chronic kidney disease Current Visit: Yes Status: Acute Plan to address problem: Get kidney and bladder ultrasound. CONTINUE VOLUME REPLETION. CHECK HEPATITIS SEROLOGIES. STAT HEMODIALYSIS WAS DONE. FOLLOW UP ELECTROLYTES AND RENAL FUNCTION. (2) Metabolic acidosis Current Visit: Yes Status: Acute Plan to address problem: Follow bicarbonate with hemodialysis (3) Hyperkalemia Current Visit: Yes Status: Acute Plan to address problem: repeat potassium after dialysis (4) Hyponatremia Current Visit: Yes Status: Acute Plan to address problem: Hypervolemic hyponatremia. Follow up sodium with fluid removal on dialysis (5) Anemia Current Visit: Yes Status: Acute Plan to address problem: Follow up hemoglobin (6) Metabolic encephalopathy Current Visit: No Status: Acute Plan to address problem: Toxic/metabolic encephalopathy. Follow up mental status off of Opiates and with solute clearance on dialysis. (7) Type 2 diabetes mellitus, uncontrolled Current Visit: No Status: Acute Plan to address problem: Blood sugar management by primary attending
[2018-01-01] MEDS: HumaLOG SUB-Q SCH (17:42)
[2018-01-01] MEDS: PROVENTIL IH SCH (20:20)
[2018-01-01] MEDS: HEPARIN SUB-Q SCH (21:25)
[2018-01-01] MEDS ORDERED: PEPCID IV SCH (22:00)
[2018-01-02] MEDS: PROVENTIL IH SCH ×4 (01:34→22:41)
[2018-01-02] MEDS ORDERED: LASIX IV ONE (04:24)
--- NOTE | 2018-01-02 04:50 | XRay Report ---
FINAL REPORT EXAM: XR CHEST 1V AP HISTORY: Desaturation TECHNIQUE: AP portable view(s) of the chest obtained. PRIORS: CT abdomen pelvis 11/24/2017 FINDINGS: No mediastinal shift. Cardiac silhouette is not enlarged. Right chest central line terminates near the superior cavoatrial junction. No pneumothorax or effusion. Ill-defined right basilar opacity. No acute skeletal finding. IMPRESSION: Ill-defined right basilar opacity may represent atelectasis or infection.
[2018-01-02] MEDS: HumaLOG SUB-Q SCH ×5 (05:44→22:09)
[2018-01-02 06:05] LABS: Calcium 7.8 mg/dL (8.4-10.2)
[2018-01-02 06:08] LABS: Hematocrit 24.5 % (30.3-42.9); Hemoglobin 7.9 gm/dl (10.1-14.3); Mean Corpuscular HGB Conc 32 % (30-34); Mean Corpuscular Hemoglobin 28 pg (28-32); Mean Corpuscular Volume 86 fl (79-97); Platelet Count 294 K/mm3 (140-440); Red Blood Count 2.86 M/mm3 (3.65-5.03); Red Cell Distribution Width 18.1 % (13.2-15.2)
[2018-01-02 06:55] LABS: Band Neutrophils # (Manual) 0.6 K/mm3; Basophils % (Manual) 0 % (0.0-1.8); Eosinophils % (Manual) 0 % (0.0-4.3); Monocytes % (Manual) 0 % (0.0-7.3); Platelet Estimate Consistent w Auto; Total Cells Counted 100
--- NOTE | 2018-01-02 10:07 | Progress Note ---
Assessment and Plan Congestive heart failure with acute decompensation Acute kidney injury Severe hyperkalemia improved AMS-probably drug induced secondary to morphine in this context of end-stage renal disease, poor clearance. Better now. Also I have recommended question about EDS and sleep apnea, since patient felt better after BiPAP last night. Of note, she was noted to be hypoxic in the 70s late at night before BiPAP Active bronchospasm-asthma. Improved Severe morbid obesity Obesity hypoventilation syndromes/RISSA. See above Hypertension Chronic pain syndrome Recommendations Hemodialysis per nephrology Serial electrolytes Albuterol 2.5 milligram nebulizations every 4-6 hours with or without ipratropium Solu-Medrol 40-60 mg IV every 6-8 hours then discontinue if better and blood sugar a problem Oxygen support via nasal cannula or mask to maintain oximetry over 92% DVT prophylaxis Critical care time was 31 minutes of [id number] evaluation and coordination of care Subjective Date of service: 01/02/18 Interval history: Patient reports that her breathing is better this morning. No cough or expectoration. She does report some wheezing and admitted to be treated with nebulizers for asthma in the past Objective Vital Signs - 12hr 01/01/18 01/01/18 01/01/18 22:30 23:00 23:30 Temperature Pulse Rate 102 H 100 H 100 H Pulse Rate [ Throughout] Respiratory 14 10 L 14 Rate Respiratory Rate [ Throughout] Blood Pressure 153/89 147/98 138/86 O2 Sat by Pulse 98 99 99 Oximetry O2 Sat by Pulse Oximetry [ Throughout] 01/02/18 01/02/18 01/02/18 00:00 00:30 01:00 Temperature 98.9 F Pulse Rate 103 H 105 H 105 H Pulse Rate [ Throughout] Respiratory 11 L 12 12 Rate Respiratory Rate [ Throughout] Blood Pressure 149/97 117/68 116/63 O2 Sat by Pulse 97 94 93 Oximetry O2 Sat by Pulse Oximetry [ Throughout] 01/02/18 01/02/18 01/02/18 01:30 01:34 01:49 Temperature Pulse Rate 104 H Pulse Rate [ 103 H 105 H Throughout] Respiratory 13 Rate Respiratory 14 14 Rate [ Throughout] Blood Pressure 134/69 O2 Sat by Pulse 93 Oximetry O2 Sat by Pulse Oximetry [ Throughout] 01/02/18 01/02/18 01/02/18 02:00 02:30 03:00 Temperature Pulse Rate 105 H 106 H 106 H Pulse Rate [ Throughout] Respiratory 11 L 16 13 Rate Respiratory Rate [ Throughout] Blood Pressure 110/66 132/88 105/60 O2 Sat by Pulse 96 99 94 Oximetry O2 Sat by Pulse Oximetry [ Throughout] 01/02/18 01/02/18 01/02/18 03:30 04:00 04:20 Temperature 99.3 F Pulse Rate 106 H 105 H 113 H Pulse Rate [ Throughout] Respiratory 13 19 20 Rate Respiratory Rate [ Throughout] Blood Pressure 105/51 123/86 159/98 O2 Sat by Pulse 89 83 L 95 Oximetry O2 Sat by Pulse Oximetry [ Throughout] 01/02/18 01/02/18 01/02/18 04:30 05:00 05:30 Temperature Pulse Rate 111 H 113 H 112 H Pulse Rate [ Throughout] Respiratory 21 22 17 Rate Respiratory Rate [ Throughout] Blood Pressure 142/112 159/98 117/58 O2 Sat by Pulse 87 96 99 Oximetry O2 Sat by Pulse Oximetry [ Throughout] 01/02/18 01/02/18 01/02/18 06:00 06:30 07:00 Temperature Pulse Rate 111 H 108 H 105 H Pulse Rate [ Throughout] Respiratory 18 18 16 Rate Respiratory Rate [ Throughout] Blood Pressure 126/74 115/69 117/69 O2 Sat by Pulse 100 94 97 Oximetry O2 Sat by Pulse Oximetry [ Throughout] 01/02/18 01/02/18 01/02/18 07:12 07:30 08:00 Temperature 97.9 F Pulse Rate 106 H 103 H 105 H Pulse Rate [ Throughout] Respiratory 22 18 19 Rate Respiratory Rate [ Throughout] Blood Pressure 107/61 125/96 O2 Sat by Pulse 96 94 97 Oximetry O2 Sat by Pulse Oximetry [ Throughout] 01/02/18 01/02/18 01/02/18 08:20 08:25 08:30 Temperature 97.9 F Pulse Rate 109 H 110 H Pulse Rate [ 103 H Throughout] Respiratory 17 19 Rate Respiratory 16 Rate [ Throughout] Blood Pressure 130/86 130/86 O2 Sat by Pulse 93 Oximetry O2 Sat by Pulse 91 Oximetry [ Throughout] 01/02/18 01/02/18 01/02/18 08:35 08:45 09:00 Temperature Pulse Rate 109 H 111 H 115 H Pulse Rate [ 104 H Throughout] Respiratory 15 15 Rate Respiratory 18 Rate [ Throughout] Blood Pressure 123/90 118/82 108/62 O2 Sat by Pulse 91 92 Oximetry O2 Sat by Pulse Oximetry [ Throughout] 01/02/18 01/02/18 01/02/18 09:15 09:30 09:45 Temperature Pulse Rate 117 H 115 H 114 H Pulse Rate [ Throughout] Respiratory 15 15 Rate Respiratory Rate [ Throughout] Blood Pressure 111/59 101/61 109/61 O2 Sat by Pulse 92 92 Oximetry O2 Sat by Pulse Oximetry [ Throughout] Constitutional: alert, other (on HD) Eyes: non-icteric ENT: oropharynx moist Neck: no JVD, other (vbraod neck) Ascultation: Right: wheezes, Left: clear Cardiovascular: regular rate and rhythm Gastrointestinal: normoactive bowel sounds, non-distended Extremities: no cyanosis, no edema Neurologic: normal mental status, non-focal exam, pupils equal and round, CN II- XII normal, motor strength normal and CBC and BMP: 01/02/18 05:00 01/02/18 05:00 ABG, PT/INR, D-dimer: ABG POC ABG pH 7.373 (7.35-7.45) 01/02/18 04:18 POC ABG pCO2 34.1 (35-45) L 01/02/18 04:18 POC ABG pO2 53 (80-105) L 01/02/18 04:18 POC ABG HCO3 19.8 01/02/18 04:18 POC ABG Total CO2 21 01/02/18 04:18 POC ABG O2 Sat 87 01/02/18 04:18 PT/INR, D-dimer PT 18.0 Sec. (12.2-14.9) H 01/01/18 07:48 INR 1.40 (0.87-1.13) H 01/01/18 07:48 Abnormal lab findings: Abnormal Labs 01/01/18 01/01/18 01/01/18 07:48 07:48 07:48 WBC 4.3 L RBC 3.33 L Hgb 9.2 L Hct 28.5 L RDW 17.7 H Monocytes % (Manual) 17 H Lymphocytes # (Manual) 0.8 L PT 18.0 H INR 1.40 H APTT 39.8 H POC ABG pCO2 POC ABG pO2 Sodium 131 L Potassium 8.6 H* Chloride 90.8 L Carbon Dioxide 12 L BUN 127 H Creatinine 9.6 H Glucose 189 H POC Glucose Calcium 7.4 L Phosphorus Magnesium Troponin T NT-Pro-B Natriuret Pep Albumin 2.9 L LDL Cholesterol Direct HDL Cholesterol Urine WBC (Auto) 01/01/18 01/01/18 01/01/18 07:48 07:48 08:00 WBC RBC Hgb Hct RDW Monocytes % (Manual) Lymphocytes # (Manual) PT INR APTT POC ABG pCO2 POC ABG pO2 Sodium Potassium Chloride Carbon Dioxide BUN Creatinine Glucose POC Glucose Calcium Phosphorus Magnesium Troponin T 0.068 H NT-Pro-B Natriuret Pep 743.2 H Albumin LDL Cholesterol Direct 46 L HDL Cholesterol 18 L Urine WBC (Auto) 7.0 H 01/01/18 01/01/18 01/01/18 08:05 09:26 11:39 WBC RBC Hgb Hct RDW Monocytes % (Manual) Lymphocytes # (Manual) PT INR APTT POC ABG pCO2 POC ABG pO2 Sodium 135 L Potassium 6.7 H* D Chloride 93.3 L Carbon Dioxide 10 L BUN 127 H Creatinine 9.4 H Glucose 185 H POC Glucose 185 H 207 H Calcium 7.3 L Phosphorus Magnesium Troponin T NT-Pro-B Natriuret Pep Albumin LDL Cholesterol Direct HDL Cholesterol Urine WBC (Auto) 01/01/18 01/01/18 01/01/18 17:38 18:00 21:32 WBC RBC Hgb Hct RDW Monocytes % (Manual) Lymphocytes # (Manual) PT INR APTT POC ABG pCO2 POC ABG pO2 Sodium Potassium Chloride 96.5 L Carbon Dioxide BUN 69 H Creatinine 5.5 H Glucose 105 H POC Glucose 133 H 127 H Calcium 7.0 L Phosphorus Magnesium Troponin T NT-Pro-B Natriuret Pep Albumin LDL Cholesterol Direct HDL Cholesterol Urine WBC (Auto) 01/02/18 01/02/18 01/02/18 04:18 05:00 05:00 WBC 4.2 L RBC 2.86 L Hgb 7.9 L Hct 24.5 L RDW 18.1 H Monocytes % (Manual) Lymphocytes # (Manual) 1.0 L PT INR APTT POC ABG pCO2 34.1 L POC ABG pO2 53 L Sodium Potassium 5.5 H D Chloride 96.2 L Carbon Dioxide 19 L BUN 80 H Creatinine 6.5 H Glucose 191 H POC Glucose Calcium 7.8 L Phosphorus 10.40 H Magnesium 1.50 L Troponin T NT-Pro-B Natriuret Pep Albumin LDL Cholesterol Direct HDL Cholesterol Urine WBC (Auto) 01/02/18 07:28 WBC RBC Hgb Hct RDW Monocytes % (Manual) Lymphocytes # (Manual) PT INR APTT POC ABG pCO2 POC ABG pO2 Sodium Potassium Chloride Carbon Dioxide BUN Creatinine Glucose POC Glucose 210 H Calcium Phosphorus Magnesium Troponin T NT-Pro-B Natriuret Pep Albumin LDL Cholesterol Direct HDL Cholesterol Urine WBC (Auto)
[2018-01-02] MEDS ORDERED: CLEOCIN 600 MG/50 mL 600 MG/50 ML BAG IV SCH (11:00)
[2018-01-02] MEDS: HEPARIN SUB-Q SCH ×2 (11:44→21:38)
[2018-01-02] MEDS: PEPCID IV SCH (11:44)
[2018-01-02] MEDS: HEPARIN IV PRN (11:53)
[2018-01-02] MEDS: PROCRIT IV PRN (11:53)
[2018-01-02] MEDS ORDERED: MAGNESIUM SULFATE 2GM/50ML 2 GM/50 ML BAG IV ONE ×2 (14:00→19:00)
--- NOTE | 2018-01-02 16:18 | Progress Note ---
Assessment and Plan - Patient Problems (1) Acute kidney injury superimposed on chronic kidney disease Current Visit: Yes Status: Acute Plan to address problem: It is unclear at this point if the patient has acute kidney injury superimposed on chronic disease versus progressive chronic kidney disease which is now end-stage renal disease. Hemodialysis again tomorrow.. FOLLOW UP ELECTROLYTES AND RENAL FUNCTION. (2) Metabolic acidosis Current Visit: Yes Status: Acute Plan to address problem: Follow bicarbonate with hemodialysis (3) Hyperkalemia Current Visit: Yes Status: Acute Plan to address problem: Potassium is back to normal. Follow potassium (4) Hyponatremia Current Visit: Yes Status: Acute Plan to address problem: Hypervolemic hyponatremia. Follow up sodium with fluid removal on dialysis (5) Anemia Current Visit: Yes Status: Acute Plan to address problem: Follow up hemoglobin (6) Metabolic encephalopathy Current Visit: No Status: Acute Plan to address problem: Toxic/metabolic encephalopathy. Mental status improving. Follow up mental status off of Opiates and with solute clearance on dialysis. (7) Type 2 diabetes mellitus, uncontrolled Current Visit: No Status: Acute Plan to address problem: Blood sugar management by primary attending Subjective Date of service: 01/02/18 Principal diagnosis: renal failure Interval history: Patient seen lying in bed. Received dialysis again today. She is saying a few words today. She has no complaints. Denies pain, nausea or vomiting. Objective - Exam Narrative Exam: Morbidly obese middle-aged -[place] female In bed. HEENT: NCAT, pink oral mucous membrane Neck: Supple, no venous distention CVS: S1S2 RRR with no murmur, rub or gallop Chest: Clear to auscultation anteriorly with diminished breath sounds Abdomen: Obese, soft, nontender, no organomegaly, bowel sounds are present Extremities: No edema Skin, warm and dry, hyperpigmentation in the legs Neuro: Lethargic, answering simple questions appropriately, not following commands - Vital Signs Vital signs: Vital Signs - 12hr 01/02/18 01/02/18 01/02/18 04:20 04:30 05:00 Temperature Pulse Rate 113 H 111 H 113 H Pulse Rate [ From Monitor] Pulse Rate [ Throughout] Respiratory 20 21 22 Rate Respiratory Rate [ Throughout] Blood Pressure 159/98 142/112 159/98 O2 Sat by Pulse 95 87 96 Oximetry O2 Sat by Pulse Oximetry [ Throughout] 0301/02/18 01/02/18 05:30 06:00 06:30 Temperature Pulse Rate 112 H 111 H 108 H Pulse Rate [ From Monitor] Pulse Rate [ Throughout] Respiratory 17 18 18 Rate Respiratory Rate [ Throughout] Blood Pressure 117/58 126/74 115/69 O2 Sat by Pulse 99 100 94 Oximetry O2 Sat by Pulse Oximetry [ Throughout] 01/02/18 01/02/18 01/02/18 07:00 07:12 07:30 Temperature Pulse Rate 105 H 106 H 103 H Pulse Rate [ From Monitor] Pulse Rate [ Throughout] Respiratory 16 22 18 Rate Respiratory Rate [ Throughout] Blood Pressure 117/69 107/61 O2 Sat by Pulse 97 96 94 Oximetry O2 Sat by Pulse Oximetry [ Throughout] 01/02/18 01/02/18 01/02/18 08:00 08:20 08:25 Temperature 97.9 F 97.9 F Pulse Rate 105 H 109 H Pulse Rate [ From Monitor] Pulse Rate [ 103 H Throughout] Respiratory 19 17 Rate Respiratory 16 Rate [ Throughout] Blood Pressure 125/96 130/86 O2 Sat by Pulse 97 Oximetry O2 Sat by Pulse 91 Oximetry [ Throughout] 01/02/18 01/02/18 01/02/18 08:30 08:35 08:37 Temperature Pulse Rate 110 H 109 H Pulse Rate [ 103 H From Monitor] Pulse Rate [ 104 H Throughout] Respiratory 19 Rate Respiratory 18 Rate [ Throughout] Blood Pressure 130/86 123/90 O2 Sat by Pulse 93 100 Oximetry O2 Sat by Pulse Oximetry [ Throughout] 01/02/18 01/02/18 01/02/18 08:45 09:00 09:15 Temperature Pulse Rate 111 H 115 H 117 H Pulse Rate [ From Monitor] Pulse Rate [ Throughout] Respiratory 15 15 15 Rate Respiratory Rate [ Throughout] Blood Pressure 118/82 108/62 111/59 O2 Sat by Pulse 91 92 92 Oximetry O2 Sat by Pulse Oximetry [ Throughout] 01/02/18 01/02/18 01/02/18 09:30 09:45 10:00 Temperature Pulse Rate 115 H 115 H 114 H Pulse Rate [ From Monitor] Pulse Rate [ Throughout] Respiratory 15 17 15 Rate Respiratory Rate [ Throughout] Blood Pressure 101/61 109/61 100/62 O2 Sat by Pulse 92 92 94 Oximetry O2 Sat by Pulse Oximetry [ Throughout] 01/02/18 01/02/18 01/02/18 10:15 10:30 10:45 Temperature Pulse Rate 112 H 113 H 111 H Pulse Rate [ From Monitor] Pulse Rate [ Throughout] Respiratory 15 14 15 Rate Respiratory Rate [ Throughout] Blood Pressure 111/66 106/56 107/60 O2 Sat by Pulse 94 94 94 Oximetry O2 Sat by Pulse Oximetry [ Throughout] 01/02/18 01/02/18 01/02/18 11:00 11:15 11:30 Temperature Pulse Rate 109 H 107 H 107 H Pulse Rate [ From Monitor] Pulse Rate [ Throughout] Respiratory 15 14 17 Rate Respiratory Rate [ Throughout] Blood Pressure 110/65 104/68 117/69 O2 Sat by Pulse 95 94 94 Oximetry O2 Sat by Pulse Oximetry [ Throughout] 01/02/18 01/02/18 01/02/18 11:50 11:56 12:00 Temperature 98.6 F 98.6 F Pulse Rate 110 H 110 H Pulse Rate [ From Monitor] Pulse Rate [ Throughout] Respiratory 15 15 Rate Respiratory Rate [ Throughout] Blood Pressure 127/87 136/81 O2 Sat by Pulse 97 Oximetry O2 Sat by Pulse 94 Oximetry [ Throughout] 01/02/18 01/02/18 01/02/18 12:30 12:37 13:00 Temperature Pulse Rate 114 H 110 H Pulse Rate [ 113 H From Monitor] Pulse Rate [ Throughout] Respiratory 16 15 14 Rate Respiratory Rate [ Throughout] Blood Pressure 140/84 127/93 O2 Sat by Pulse 96 95 98 Oximetry O2 Sat by Pulse Oximetry [ Throughout] 01/02/18 01/02/18 01/02/18 13:30 14:00 14:30 Temperature Pulse Rate 109 H 110 H 110 H Pulse Rate [ From Monitor] Pulse Rate [ Throughout] Respiratory 18 14 18 Rate Respiratory Rate [ Throughout] Blood Pressure 127/93 115/82 139/69 O2 Sat by Pulse 94 97 88 Oximetry O2 Sat by Pulse Oximetry [ Throughout] 01/02/18 01/02/18 15:37 15:48 Temperature Pulse Rate Pulse Rate [ From Monitor] Pulse Rate [ 111 H 109 H Throughout] Respiratory Rate Respiratory 20 18 Rate [ Throughout] Blood Pressure O2 Sat by Pulse Oximetry O2 Sat by Pulse Oximetry [ Throughout] - Lab 01/02/18 05:00 01/02/18 05:00 Most recent lab results Calcium 7.8 mg/dL (8.4-10.2) L 01/02/18 05:00 Phosphorus 10.40 mg/dL (2.5-4.5) H 01/02/18 05:00 Magnesium 1.50 mg/dL (1.7-2.3) L 01/02/18 05:00
--- NOTE | 2018-01-02 17:21 | Ultrasound Report ---
FINAL REPORT EXAM: US RENAL BILAT HISTORY: Acute kidney injury TECHNIQUE: Ultrasound of the kidneys PRIORS: Ultrasound kidneys 04/03/2017, CT a/P 11/24/2017 FINDINGS: Examination the kidneys demonstrates both to be normal in size and have normal cortical echogenicity and thickness. The right and left kidneys measure 10.5 cm and 9.2 cm in craniocaudal length, respectively. No evidence for calculi, hydronephrosis, or solid mass is seen in either kidney. There is a tiny 9 x 8 x 7 mm exophytic cyst off the lower pole of the left kidney laterally. This is too small to clearly characterize. It was not previously visualized on ultrasound but is seen on the prior CT. The urinary bladder contains a Kate catheter and is collapsed. IMPRESSION: New small exophytic cyst off the lateral lower pole left kidney, not previously visualized on ultrasound from 2017. It is too small to clearly characterize. Otherwise, negative and stable ultrasound of the kidneys.
--- NOTE | 2018-01-02 17:51 | Progress Note ---
Assessment and Plan Assessment and plan: AMS, acute toxic encephalopathy - Likely due to opioid overdose - Resolved Acute renal failure - Nephrology is on board continue hemodialysis Hyperkalemia - This morning was 5.5 and she gets hemodialysis after that Morbid obesity - We'll consult her about weight loss, diet and exercise Volume overloadoverload - Resolving with hemodialysis DM with hyperglycemia - SSI DVT prophylaxis - heparin Disposition - Transferred to the floor. History Interval history: Patient was seen and evaluated this morning, patient was alert and oriented, she is breathing okay. Hospitalist Physical - Physical exam Narrative exam: Not in cardiopulmonary distress. The patient is morbidly obese. Vital signs as documented. Head exam is unremarkable. No scleral icterus . Neck is without jugular venous distension, thyromegaly, or carotid bruits. Lungs are clear to auscultation. Cardiac exam reveals regular rate and Rhythm. First and second heart sounds normal. No murmurs, rubs or gallops. Abdominal exam reveals normal bowel sounds, no masses, no organomegaly and no aortic enlargement. Extremities are nonedematous and both femoral and pedal pulses are normal. 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 - Constitutional Vitals: Temp Pulse Resp BP Pulse Ox 98.6 F 112 H 16 124/77 95 01/02/18 11:56 01/02/18 16:30 01/02/18 16:30 01/02/18 16:30 01/02/18 16:30 Results - Labs CBC & Chem 7: 01/02/18 05:00 01/02/18 05:00 Labs: Laboratory Last Values WBC 4.2 K/mm3 (4.5-11.0) L 01/02/18 05:00 RBC 2.86 M/mm3 (3.65-5.03) L 01/02/18 05:00 Hgb 7.9 gm/dl (10.1-14.3) L 01/02/18 05:00 Hct 24.5 % (30.3-42.9) L 01/02/18 05:00 MCV 86 fl (79-97) 01/02/18 05:00 MCH 28 pg (28-32) 01/02/18 05:00 MCHC 32 % (30-34) 01/02/18 05:00 RDW 18.1 % (13.2-15.2) H 01/02/18 05:00 Plt Count 294 K/mm3 (140-440) 01/02/18 05:00 Lymph % (Auto) [employer] 01/02/18 05:00 [place] % (Auto) [employer] 01/02/18 05:00 Eos % (Auto) [employer] 01/02/18 05:00 Baso % (Auto) [employer] 01/02/18 05:00 Lymph # [employer] 01/02/18 05:00 [place] # [employer] 01/02/18 05:00 Eos # [employer] 01/02/18 05:00 Baso # [employer] 01/02/18 05:00 Add Manual Diff Complete 01/02/18 05:00 Total Counted 100 01/02/18 05:00 Seg Neutrophils % [employer] 01/02/18 05:00 Seg Neuts % (Manual) 62.0 % (40.0-70.0) 01/02/18 05:00 Band Neutrophils % 14.0 % 01/02/18 05:00 Lymphocytes % (Manual) 23.0 % (13.4-35.0) 01/02/18 05:00 Reactive Lymphs % (Man) 0 % 01/02/18 05:00 Monocytes % (Manual) 0 % (0.0-7.3) 01/02/18 05:00 Eosinophils % (Manual) 0 % (0.0-4.3) 01/02/18 05:00 Basophils % (Manual) 0 % (0.0-1.8) 01/02/18 05:00 Metamyelocytes % 1.0 % 01/02/18 05:00 Myelocytes % 0 % 01/02/18 05:00 Promyelocytes % 0 % 01/02/18 05:00 Blast Cells % 0 % 01/02/18 05:00 Nucleated RBC % Not Reportable 01/02/18 05:00 Seg Neutrophils # [employer] Advis[employer] 01/02/18 05:00 Seg Neutrophils # Man 2.6 K/mm3 (1.8-7.7) 01/02/18 05:00 Band Neutrophils # 0.6 K/mm3 01/02/18 05:00 Lymphocytes # (Manual) 1.0 K/mm3 (1.2-5.4) L 01/02/18 05:00 Abs React Lymphs (Man) 0.0 K/mm3 01/02/18 05:00 Monocytes # (Manual) 0.0 K/mm3 (0.0-0.8) 01/02/18 05:00 Eosinophils # (Manual) 0.0 K/mm3 (0.0-0.4) 01/02/18 05:00 Basophils # (Manual) 0.0 K/mm3 (0.0-0.1) 01/02/18 05:00 Metamyelocytes # 0.0 K/mm3 01/02/18 05:00 Myelocytes # 0.0 K/mm3 01/02/18 05:00 Promyelocytes # 0.0 K/mm3 01/02/18 05:00 Blast Cells # 0.0 K/mm3 01/02/18 05:00 WBC Morphology Not Reportable 01/02/18 05:00 Hypersegmented Neuts Not Reportable 01/02/18 05:00 Hyposegmented Neuts Not Reportable 01/02/18 05:00 Hypogranular Neuts Not Reportable 01/02/18 05:00 Smudge Cells Not Reportable 01/02/18 05:00 Toxic Granulation Not Reportable 01/02/18 05:00 Toxic Vacuolation Not Reportable 01/02/18 05:00 Dohle Bodies Not Reportable 01/02/18 05:00 Pelger-Huet Anomaly Not Reportable 01/02/18 05:00 Juliet Rods Not Reportable 01/02/18 05:00 Platelet Estimate Consistent w auto 01/02/18 05:00 Clumped Platelets Not Reportable 01/02/18 05:00 Plt Clumps, EDTA Not Reportable 01/02/18 05:00 Large Platelets Not Reportable 01/02/18 05:00 Giant Platelets Not Reportable 01/02/18 05:00 Platelet Satelliting Not Reportable 01/02/18 05:00 Plt Morphology Comment Not Reportable 01/02/18 05:00 RBC Morphology Not Reportable 01/02/18 05:00 Dimorphic RBCs Not Reportable 01/02/18 05:00 Polychromasia Not Reportable 01/02/18 05:00 Hypochromasia Not Reportable 01/02/18 05:00 Poikilocytosis Not Reportable 01/02/18 05:00 Anisocytosis Not Reportable 01/02/18 05:00 Microcytosis Not Reportable 01/02/18 05:00 Macrocytosis Not Reportable 01/02/18 05:00 Spherocytes Not Reportable 01/02/18 05:00 Pappenheimer Bodies Not Reportable 01/02/18 05:00 Sickle Cells Not Reportable 01/02/18 05:00 Target Cells Not Reportable 01/02/18 05:00 Tear Drop Cells Not Reportable 01/02/18 05:00 Ovalocytes Not Reportable 01/02/18 05:00 Helmet Cells Not Reportable 01/02/18 05:00 [place] Bodies Not Reportable 01/02/18 05:00 [place] Rings Not Reportable 01/02/18 05:00 [place] Cells Not Reportable 01/02/18 05:00 Bite Cells Not Reportable 01/02/18 05:00 Crenated Cell Not Reportable 01/02/18 05:00 Elliptocytes Not Reportable 01/02/18 05:00 Acanthocytes (Spur) Not Reportable 01/02/18 05:00 Rouleaux Not Reportable 01/02/18 05:00 Hemoglobin C Crystals Not Reportable 01/02/18 05:00 Schistocytes Not Reportable 01/02/18 05:00 Malaria parasites Not Reportable 01/02/18 05:00 Gume Bodies Not Reportable 01/02/18 05:00 Hem Pathologist Commnt No 01/02/18 05:00 PT 18.0 Sec. (12.2-14.9) H 01/01/18 07:48 INR 1.40 (0.87-1.13) H 01/01/18 07:48 APTT 39.8 Sec. (24.2-36.6) H 01/01/18 07:48 POC ABG pH 7.373 (7.35-7.45) 01/02/18 04:18 POC ABG pCO2 34.1 (35-45) L 01/02/18 04:18 POC ABG pO2 53 (80-105) L 01/02/18 04:18 POC ABG HCO3 19.8 01/02/18 04:18 POC ABG Total CO2 21 01/02/18 04:18 POC ABG O2 Sat 87 01/02/18 04:18 POC ABG Base Excess -5 01/02/18 04:18 FiO2 40 % 01/02/18 04:18 Sodium 139 mmol/L (137-145) 01/02/18 05:00 Potassium 5.5 mmol/L (3.6-5.0) H D 01/02/18 05:00 Chloride 96.2 mmol/L (98-107) L 01/02/18 05:00 Carbon Dioxide 19 mmol/L (22-30) L 01/02/18 05:00 Anion Gap 29 mmol/L 01/02/18 05:00 BUN 80 mg/dL (7-17) H 01/02/18 05:00 Creatinine 6.5 mg/dL (0.7-1.2) H 01/02/18 05:00 Estimated GFR 9 ml/min 01/02/18 05:00 BUN/Creatinine Ratio 12 % 01/02/18 05:00 Glucose 191 mg/dL (65-100) H 01/02/18 05:00 POC Glucose 180 (70-105) H 01/02/18 15:25 Lactic Acid 1.30 mmol/L (0.7-2.0) 01/01/18 07:48 Calcium 7.8 mg/dL (8.4-10.2) L 01/02/18 05:00 Phosphorus 10.40 mg/dL (2.5-4.5) H 01/02/18 05:00 Magnesium 1.50 mg/dL (1.7-2.3) L 01/02/18 05:00 Total Bilirubin 0.30 mg/dL (0.1-1.2) 01/01/18 07:48 AST 7 units/L (5-40) 01/01/18 07:48 ALT 8 units/L (7-56) 01/01/18 07:48 Alkaline Phosphatase 127 units/L (35-129) 01/01/18 07:48 Ammonia 28.0 umol/L (25-60) 01/01/18 07:48 Troponin T 0.068 ng/mL (0.00-0.029) H 01/01/18 07:48 NT-Pro-B Natriuret Pep 743.2 pg/mL (0-450) H 01/01/18 07:48 Total Protein 7.4 g/dL (6.3-8.2) 01/01/18 07:48 Albumin 2.9 g/dL (3.9-5) L 01/01/18 07:48 Albumin/Globulin Ratio 0.6 % 01/01/18 07:48 Triglycerides 125 mg/dL (2-149) 01/01/18 07:48 Cholesterol 119 mg/dL (50-199) 01/01/18 07:48 LDL Cholesterol Direct 46 mg/dL (50-130) L 01/01/18 07:48 HDL Cholesterol 18 mg/dL (40-59) L 01/01/18 07:48 Cholesterol/HDL Ratio 6.61 % 01/01/18 07:48 HCG, Qual Negative (Negative) 01/01/18 08:11 Urine Color Yellow (Yellow) 01/01/18 08:00 Urine Turbidity Slightly-cloudy (Clear) 01/01/18 08:00 Urine pH 5.0 (5.0-7.0) 01/01/18 08:00 Ur Specific [place] 1.018 (1.003-1.030) 01/01/18 08:00 Urine Protein <15 mg/dl mg/dL (Negative) 01/01/18 08:00 Urine Glucose (UA) 50 mg/dL (Negative) 01/01/18 08:00 Urine Ketones Neg mg/dL (Negative) 01/01/18 08:00 Urine Blood Sm (Negative) 01/01/18 08:00 Urine Nitrite Neg (Negative) 01/01/18 08:00 Urine Bilirubin Neg (Negative) 01/01/18 08:00 Urine Urobilinogen < 2.0 mg/dL (<2.0) 01/01/18 08:00 Ur Leukocyte Esterase Tr (Negative) 01/01/18 08:00 Urine WBC (Auto) 7.0 /HPF (0.0-6.0) H 01/01/18 08:00 Urine RBC (Auto) 6.0 /HPF (0.0-6.0) 01/01/18 08:00 U Epithel Cells (Auto) < 1.0 /HPF (0-13.0) 01/01/18 08:00 Urine Bacteria (Auto) 1+ /HPF (Negative) 01/01/18 08:00 Urine Yeast (Budding) 1+ /HPF 01/01/18 08:00 Urine Opiates Screen Presumptive positive 01/01/18 08:00 Urine Methadone Screen Presumptive negative 01/01/18 08:00 Ur Barbiturates Screen Presumptive negative 01/01/18 08:00 Ur Phencyclidine Scrn Presumptive negative 01/01/18 08:00 Ur Amphetamines Screen Presumptive negative 01/01/18 08:00 U Benzodiazepines Scrn Presumptive negative 01/01/18 08:00 Urine Cocaine Screen Presumptive negative 01/01/18 08:00 U Marijuana (THC) Screen Presumptive negative 01/01/18 08:00 Drugs of Abuse Note Disclamer 01/01/18 08:00 Hep Bs Antigen Non-reactive (Negative) 01/02/18 05:00 Hepatitis C Antibody Non-reactive (NonReactive) 01/02/18 05:00
[2018-01-02] MEDS: CLEOCIN 600 MG/50 mL 600 MG/50 ML BAG IV SCH (21:39)
[2018-01-02] MEDS: ZOFRAN IV PRN (21:39)
[2018-01-02] MEDS ORDERED: NACL 0.9% 250ML 250 ML ONE (22:00)
[2018-01-02] MEDS ORDERED: NACL 0.9% 250ML 250 ML IV ONE (22:05)
[2018-01-03] MEDS: PROVENTIL IH SCH ×4 (01:53→20:50)
[2018-01-03] MEDS: CLEOCIN 600 MG/50 mL 600 MG/50 ML BAG IV SCH ×3 (04:36→17:57)
[2018-01-03] MEDS: HumaLOG SUB-Q SCH ×4 (08:30→22:22)
[2018-01-03] MEDS ORDERED: MORPHINE IV PRN (09:08)
[2018-01-03] MEDS ORDERED: NACL 0.9 (PRIMING MACHINE ONLY DIALYSIS) MC ONE ×2 (09:53→15:46)
[2018-01-03] MEDS: PEPCID IV SCH (10:45)
[2018-01-03] MEDS: HEPARIN SUB-Q SCH ×2 (11:07→21:14)
[2018-01-03] MEDS: HEPARIN IV PRN (15:34)
--- NOTE | 2018-01-03 17:34 | Progress Note ---
Assessment and Plan - Patient Problems (1) Acute kidney injury superimposed on chronic kidney disease Current Visit: Yes Status: Acute Plan to address problem: acute kidney injury superimposed on chronic disease vs progressive chronic kidney disease which is now end-stage renal disease. HD today, will monitor lytes/ renal parameters and assess need for HD on a daily basis. (2) Metabolic acidosis Current Visit: Yes Status: Acute Plan to address problem: improvign with HD (3) Hyperkalemia Current Visit: Yes Status: Acute Plan to address problem: cont HD with 2 K bath, cont 2g K renal diet (4) Hyponatremia Current Visit: Yes Status: Acute Plan to address problem: Hypervolemic hyponatremia. Na improved with HD (5) Anemia Current Visit: Yes Status: Chronic Qualifiers: Chronic kidney disease stage: on chronic dialysis Plan to address problem: cont EPO with HD (6) Metabolic encephalopathy Current Visit: No Status: Acute Plan to address problem: Mental status improving. Follow up mental status off of Opiates and with solute clearance on dialysis (7) Type 2 diabetes mellitus, uncontrolled Current Visit: No Status: Chronic Plan to address problem: Blood sugar management by primary attending Subjective Date of service: 01/03/18 Principal diagnosis: renal failure Interval history: pt awake, alert, in no acute respiratory distress. Objective - Vital Signs Vital signs: Vital Signs - 12hr 01/03/18 01/03/18 01/03/18 05:42 07:37 10:00 Temperature 97.9 F 97.3 F L Pulse Rate 71 112 H Respiratory 18 20 Rate Blood Pressure 169/107 Blood Pressure 150/93 [Right] O2 Sat by Pulse 100 100 100 Oximetry - General Appearance General appearance: well-developed, well-nourished, appears stated age EENT: ATNC, PERRL, mucous membranes moist Neck: no JVD Respiratory: Present: Decreased Breath Sounds Cardiology: regular, S1S2 Gastrointestinal: normoactive bowel sounds, obese Integumentary: no rash, other (no edema ) Neurologic: no focal deficit, alert and oriented x3, strength 5/5, CN 3-12 intact Psychiatric: mood/affect appropriate, cooperative - Lab 01/02/18 05:00 01/02/18 05:00 Most recent lab results Calcium 7.8 mg/dL (8.4-10.2) L 01/02/18 05:00 Phosphorus 10.40 mg/dL (2.5-4.5) H 01/02/18 05:00 Magnesium 1.50 mg/dL (1.7-2.3) L 01/02/18 05:00
--- NOTE | 2018-01-03 17:39 | Event Note ---
Date: 01/03/18 Attempt to see the patient that I was informed that she is currently on hemodialysis.
[2018-01-03] MEDS: MORPHINE IV PRN (17:55)
[2018-01-03] MEDS: ZOFRAN IV PRN (17:55)
--- NOTE | 2018-01-03 18:05 | Progress Note ---
Assessment and Plan Assessment and plan: AMS, acute toxic encephalopathy - Likely due to opioid overdose - Resolved Acute renal failure - Nephrology is on board continue hemodialysis Abdominal Pain, N/V - Patient was given Zofran and morphine for the pain Hyperkalemia -BMP was not done this morning -Patient is going to hemodialysis today - Follow BMP Morbid obesity - We'll consult her about weight loss, diet and exercise Volume overloadoverload - Resolving with hemodialysis DM with hyperglycemia - SSI DVT prophylaxis - heparin Disposition - continue inpatient care. History Interval history: Patient was seen and evaluated this morning, patient was alert and oriented, patient is complaining of abdominal pain, nausea and vomiting. Zofran was given. Hospitalist Physical - Physical exam Narrative exam: Not in cardiopulmonary distress. The patient is morbidly obese. Vital signs as documented. Head exam is unremarkable. No scleral icterus . Neck is without jugular venous distension, thyromegaly, or carotid bruits. Lungs are clear to auscultation. Cardiac exam reveals regular rate and Rhythm. First and second heart sounds normal. No murmurs, rubs or gallops. Abdominal exam reveals obese abdomen. Extremities are nonedematous and both femoral and pedal pulses are normal. 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 - Constitutional Vitals: Temp Pulse Resp BP Pulse Ox 97.3 F L 112 H 20 169/107 100 01/03/18 07:37 01/03/18 07:37 01/03/18 07:37 01/03/18 07:37 01/03/18 10:00 Results - Labs CBC & Chem 7: 01/02/18 05:00 01/02/18 05:00 Labs: Laboratory Last Values WBC 4.2 K/mm3 (4.5-11.0) L 01/02/18 05:00 RBC 2.86 M/mm3 (3.65-5.03) L 01/02/18 05:00 Hgb 7.9 gm/dl (10.1-14.3) L 01/02/18 05:00 Hct 24.5 % (30.3-42.9) L 01/02/18 05:00 MCV 86 fl (79-97) 01/02/18 05:00 MCH 28 pg (28-32) 01/02/18 05:00 MCHC 32 % (30-34) 01/02/18 05:00 RDW 18.1 % (13.2-15.2) H 01/02/18 05:00 Plt Count 294 K/mm3 (140-440) 01/02/18 05:00 Lymph % (Auto) [place] [employer] 01/02/18 05:00 [place] % (Auto) [employer] [employer] 01/02/18 05:00 Eos % (Auto) [place] [employer] 01/02/18 05:00 Baso % (Auto) [place] [employer] 01/02/18 05:00 Lymph # [place] [employer] 01/02/18 05:00 [place] # [place] [employer] 01/02/18 05:00 Eos # [place] [employer] 01/02/18 05:00 Baso # [place] [employer] 01/02/18 05:00 Add Manual Diff Complete 01/02/18 05:00 Total Counted 100 01/02/18 05:00 Seg Neutrophils % [place] [employer] 01/02/18 05:00 Seg Neuts % (Manual) 62.0 % (40.0-70.0) 01/02/18 05:00 Band Neutrophils % 14.0 % 01/02/18 05:00 Lymphocytes % (Manual) 23.0 % (13.4-35.0) 01/02/18 05:00 Reactive Lymphs % (Man) 0 % 01/02/18 05:00 Monocytes % (Manual) 0 % (0.0-7.3) 01/02/18 05:00 Eosinophils % (Manual) 0 % (0.0-4.3) 01/02/18 05:00 Basophils % (Manual) 0 % (0.0-1.8) 01/02/18 05:00 Metamyelocytes % 1.0 % 01/02/18 05:00 Myelocytes % 0 % 01/02/18 05:00 Promyelocytes % 0 % 01/02/18 05:00 Blast Cells % 0 % 01/02/18 05:00 Nucleated RBC % Not Reportable 01/02/18 05:00 Seg Neutrophils # [place] [employer] 01/02/18 05:00 Seg Neutrophils # Man 2.6 K/mm3 (1.8-7.7) 01/02/18 05:00 Band Neutrophils # 0.6 K/mm3 01/02/18 05:00 Lymphocytes # (Manual) 1.0 K/mm3 (1.2-5.4) L 01/02/18 05:00 Abs React Lymphs (Man) 0.0 K/mm3 01/02/18 05:00 Monocytes # (Manual) 0.0 K/mm3 (0.0-0.8) 01/02/18 05:00 Eosinophils # (Manual) 0.0 K/mm3 (0.0-0.4) 01/02/18 05:00 Basophils # (Manual) 0.0 K/mm3 (0.0-0.1) 01/02/18 05:00 Metamyelocytes # 0.0 K/mm3 01/02/18 05:00 Myelocytes # 0.0 K/mm3 01/02/18 05:00 Promyelocytes # 0.0 K/mm3 01/02/18 05:00 Blast Cells # 0.0 K/mm3 01/02/18 05:00 WBC Morphology Not Reportable 01/02/18 05:00 Hypersegmented Neuts Not Reportable 01/02/18 05:00 Hyposegmented Neuts Not Reportable 01/02/18 05:00 Hypogranular Neuts Not Reportable 01/02/18 05:00 Smudge Cells Not Reportable 01/02/18 05:00 Toxic Granulation Not Reportable 01/02/18 05:00 Toxic Vacuolation Not Reportable 01/02/18 05:00 Dohle Bodies Not Reportable 01/02/18 05:00 Pelger-Huet Anomaly Not Reportable 01/02/18 05:00 Juliet Rods Not Reportable 01/02/18 05:00 Platelet Estimate Consistent w auto 01/02/18 05:00 Clumped Platelets Not Reportable 01/02/18 05:00 Plt Clumps, EDTA Not Reportable 01/02/18 05:00 Large Platelets Not Reportable 01/02/18 05:00 Giant Platelets Not Reportable 01/02/18 05:00 Platelet Satelliting Not Reportable 01/02/18 05:00 Plt Morphology Comment Not Reportable 01/02/18 05:00 RBC Morphology Not Reportable 01/02/18 05:00 Dimorphic RBCs Not Reportable 01/02/18 05:00 Polychromasia Not Reportable 01/02/18 05:00 Hypochromasia Not Reportable 01/02/18 05:00 Poikilocytosis Not Reportable 01/02/18 05:00 Anisocytosis Not Reportable 01/02/18 05:00 Microcytosis Not Reportable 01/02/18 05:00 Macrocytosis Not Reportable 01/02/18 05:00 Spherocytes Not Reportable 01/02/18 05:00 Pappenheimer Bodies Not Reportable 01/02/18 05:00 Sickle Cells Not Reportable 01/02/18 05:00 Target Cells Not Reportable 01/02/18 05:00 Tear Drop Cells Not Reportable 01/02/18 05:00 Ovalocytes Not Reportable 01/02/18 05:00 Helmet Cells Not Reportable 01/02/18 05:00 [place] Bodies Not Reportable 01/02/18 05:00 [place] Rings Not Reportable 01/02/18 05:00 [place] Cells Not Reportable 01/02/18 05:00 Bite Cells Not Reportable 01/02/18 05:00 Crenated Cell Not Reportable 01/02/18 05:00 Elliptocytes Not Reportable 01/02/18 05:00 Acanthocytes (Spur) Not Reportable 01/02/18 05:00 Rouleaux Not Reportable 01/02/18 05:00 Hemoglobin C Crystals Not Reportable 01/02/18 05:00 Schistocytes Not Reportable 01/02/18 05:00 Malaria parasites Not Reportable 01/02/18 05:00 Gume Bodies Not Reportable 01/02/18 05:00 Hem Pathologist Commnt No 01/02/18 05:00 PT 18.0 Sec. (12.2-14.9) H 01/01/18 07:48 INR 1.40 (0.87-1.13) H 01/01/18 07:48 APTT 39.8 Sec. (24.2-36.6) H 01/01/18 07:48 POC ABG pH 7.373 (7.35-7.45) 01/02/18 04:18 POC ABG pCO2 34.1 (35-45) L 01/02/18 04:18 POC ABG pO2 53 (80-105) L 01/02/18 04:18 POC ABG HCO3 19.8 01/02/18 04:18 POC ABG Total CO2 21 01/02/18 04:18 POC ABG O2 Sat 87 01/02/18 04:18 POC ABG Base Excess -5 01/02/18 04:18 FiO2 40 % 01/02/18 04:18 Sodium 139 mmol/L (137-145) 01/02/18 05:00 Potassium 5.5 mmol/L (3.6-5.0) H D 01/02/18 05:00 Chloride 96.2 mmol/L (98-107) L 01/02/18 05:00 Carbon Dioxide 19 mmol/L (22-30) L 01/02/18 05:00 Anion Gap 29 mmol/L 01/02/18 05:00 BUN 80 mg/dL (7-17) H 01/02/18 05:00 Creatinine 6.5 mg/dL (0.7-1.2) H 01/02/18 05:00 Estimated GFR 9 ml/min 01/02/18 05:00 BUN/Creatinine Ratio 12 % 01/02/18 05:00 Glucose 191 mg/dL (65-100) H 01/02/18 05:00 POC Glucose 267 (70-105) H 01/03/18 05:20 Lactic Acid 1.30 mmol/L (0.7-2.0) 01/01/18 07:48 Calcium 7.8 mg/dL (8.4-10.2) L 01/02/18 05:00 Phosphorus 10.40 mg/dL (2.5-4.5) H 01/02/18 05:00 Magnesium 1.50 mg/dL (1.7-2.3) L 01/02/18 05:00 Total Bilirubin 0.30 mg/dL (0.1-1.2) 01/01/18 07:48 AST 7 units/L (5-40) 01/01/18 07:48 ALT 8 units/L (7-56) 01/01/18 07:48 Alkaline Phosphatase 127 units/L (35-129) 01/01/18 07:48 Ammonia 28.0 umol/L (25-60) 01/01/18 07:48 Troponin T 0.068 ng/mL (0.00-0.029) H 01/01/18 07:48 NT-Pro-B Natriuret Pep 743.2 pg/mL (0-450) H 01/01/18 07:48 Total Protein 7.4 g/dL (6.3-8.2) 01/01/18 07:48 Albumin 2.9 g/dL (3.9-5) L 01/01/18 07:48 Albumin/Globulin Ratio 0.6 % 01/01/18 07:48 Triglycerides 125 mg/dL (2-149) 01/01/18 07:48 Cholesterol 119 mg/dL (50-199) 01/01/18 07:48 LDL Cholesterol Direct 46 mg/dL (50-130) L 01/01/18 07:48 HDL Cholesterol 18 mg/dL (40-59) L 01/01/18 07:48 Cholesterol/HDL Ratio 6.61 % 01/01/18 07:48 HCG, Qual Negative (Negative) 01/01/18 08:11 Urine Color Yellow (Yellow) 01/01/18 08:00 Urine Turbidity Slightly-cloudy (Clear) 01/01/18 08:00 Urine pH 5.0 (5.0-7.0) 01/01/18 08:00 Ur Specific [place] 1.018 (1.003-1.030) 01/01/18 08:00 Urine Protein <15 mg/dl mg/dL (Negative) 01/01/18 08:00 Urine Glucose (UA) 50 mg/dL (Negative) 01/01/18 08:00 Urine Ketones Neg mg/dL (Negative) 01/01/18 08:00 Urine Blood Sm (Negative) 01/01/18 08:00 Urine Nitrite Neg (Negative) 01/01/18 08:00 Urine Bilirubin Neg (Negative) 01/01/18 08:00 Urine Urobilinogen < 2.0 mg/dL (<2.0) 01/01/18 08:00 Ur Leukocyte Esterase Tr (Negative) 01/01/18 08:00 Urine WBC (Auto) 7.0 /HPF (0.0-6.0) H 01/01/18 08:00 Urine RBC (Auto) 6.0 /HPF (0.0-6.0) 01/01/18 08:00 U Epithel Cells (Auto) < 1.0 /HPF (0-13.0) 01/01/18 08:00 Urine Bacteria (Auto) 1+ /HPF (Negative) 01/01/18 08:00 Urine Yeast (Budding) 1+ /HPF 01/01/18 08:00 Urine Opiates Screen Presumptive positive 01/01/18 08:00 Urine Methadone Screen Presumptive negative 01/01/18 08:00 Ur Barbiturates Screen Presumptive negative 01/01/18 08:00 Ur Phencyclidine Scrn Presumptive negative 01/01/18 08:00 Ur Amphetamines Screen Presumptive negative 01/01/18 08:00 U Benzodiazepines Scrn Presumptive negative 01/01/18 08:00 Urine Cocaine Screen Presumptive negative 01/01/18 08:00 U Marijuana (THC) Screen Presumptive negative 01/01/18 08:00 Drugs of Abuse Note Disclamer 01/01/18 08:00 Hep Bs Antigen Non-reactive (Negative) 01/02/18 05:00 Hepatitis C Antibody Non-reactive (NonReactive) 01/02/18 05:00
[2018-01-03 21:08] LABS: Hematocrit 44.1 % (30.3-42.9); Hemoglobin 13.9 gm/dl (10.1-14.3); Mean Corpuscular HGB Conc 32 % (30-34); Mean Corpuscular Hemoglobin 27 pg (28-32); Mean Corpuscular Volume 85 fl (79-97); Platelet Count 198 K/mm3 (140-440); Red Cell Distribution Width 17.7 % (13.2-15.2)
[2018-01-03 21:13] LABS: Calcium 8.7 mg/dL (8.4-10.2)
[2018-01-03 21:35] LABS: Basophils % (Manual) 0 % (0.0-1.8); Eosinophils % (Manual) 0 % (0.0-4.3); Total Cells Counted 100
[2018-01-03 21:36] LABS: Platelet Estimate Consistent w Auto
[2018-01-03 21:37] LABS: Anisocytosis 1+; Poikilocytosis Few; Stomatocytes 1+; Tear Drop Cells Rare
[2018-01-04] MEDS: PROVENTIL IH SCH ×2 (01:37→14:32)
[2018-01-04] MEDS: MORPHINE IV PRN ×2 (03:19→08:30)
[2018-01-04] MEDS: CLEOCIN 600 MG/50 mL 600 MG/50 ML BAG IV SCH ×4 (03:20→21:02)
[2018-01-04 05:52] LABS: Hematocrit 26.2 % (30.3-42.9); Hemoglobin 8.7 gm/dl (10.1-14.3); Mean Corpuscular HGB Conc 33 % (30-34); Mean Corpuscular Hemoglobin 28 pg (28-32); Mean Corpuscular Volume 84 fl (79-97); Platelet Count 257 K/mm3 (140-440); Red Blood Count 3.13 M/mm3 (3.65-5.03); Red Cell Distribution Width 17.5 % (13.2-15.2)
[2018-01-04 06:16] LABS: Calcium 8.9 mg/dL (8.4-10.2)
[2018-01-04] MEDS: HumaLOG SUB-Q SCH ×4 (08:00→23:16)
[2018-01-04 10:12] LABS: Band Neutrophils # (Manual) 0.5 K/mm3; Basophils % (Manual) 0 % (0.0-1.8); Eosinophils % (Manual) 0 % (0.0-4.3); Total Cells Counted 100
[2018-01-04 10:13] LABS: Anisocytosis 1+; Hypochromasia 1+; Ovalocytes Few
[2018-01-04] MEDS: PEPCID IV SCH (11:15)
[2018-01-04] MEDS: HEPARIN SUB-Q SCH ×2 (11:36→21:02)
--- NOTE | 2018-01-04 13:52 | Progress Note ---
Assessment and Plan Congestive heart failure with acute decompensation. Clinically improved and controlled Acute kidney injury. On hemodialysis Severe hyperkalemia improved Up was to be resolved Active bronchospasm-asthma. Improved Severe morbid obesity Obesity hypoventilation syndromes/RISSA. No hypercapnia unless ABGs. She may still need BiPAP for RISSA treatment at this point Hypertension Chronic pain syndrome Recommendations Hemodialysis per nephrology Serial electrolytes. Hospital medicine following Albuterol 2.5 milligram nebulizations every 4-6 hours with or without ipratropium Oxygen support via nasal cannula or mask to maintain oximetry over 92% BiPAP at night. She refused BiPAP last night DVT prophylaxis Critical care time was 31 minutes of [id number] evaluation and coordination of care Subjective Date of service: 01/04/18 Principal diagnosis: renal failure Interval history: Feels better today. Did not use BiPAP last night. Otherwise, feels the same Objective Vital Signs - 12hr 01/04/18 01/04/18 01/04/18 03:45 04:18 08:03 Temperature 98.7 F 98.4 F Pulse Rate 98 H 106 H 106 H Respiratory 20 20 Rate Blood Pressure 124/78 141/88 O2 Sat by Pulse 96 97 Oximetry 01/04/18 10:51 Temperature 98.1 F Pulse Rate Respiratory 20 Rate Blood Pressure 141/101 O2 Sat by Pulse Oximetry Constitutional: alert, other (on HD) Eyes: non-icteric ENT: oropharynx moist Neck: no JVD, other (vbraod neck) Ascultation: Right: wheezes, Left: clear, Bilateral: rales Cardiovascular: regular rate and rhythm Gastrointestinal: normoactive bowel sounds, non-distended Extremities: no cyanosis, no edema Neurologic: normal mental status, non-focal exam, pupils equal and round, CN II- XII normal, motor strength normal and CBC and BMP: 01/04/18 05:20 01/04/18 05:20 ABG, PT/INR, D-dimer: ABG POC ABG pH 7.373 (7.35-7.45) 01/02/18 04:18 POC ABG pCO2 34.1 (35-45) L 01/02/18 04:18 POC ABG pO2 53 (80-105) L 01/02/18 04:18 POC ABG HCO3 19.8 01/02/18 04:18 POC ABG Total CO2 21 01/02/18 04:18 POC ABG O2 Sat 87 01/02/18 04:18 PT/INR, D-dimer PT 18.0 Sec. (12.2-14.9) H 01/01/18 07:48 INR 1.40 (0.87-1.13) H 01/01/18 07:48 Abnormal lab findings: Abnormal Labs 01/01/18 01/01/18 01/01/18 07:48 07:48 07:48 WBC 4.3 L RBC 3.33 L Hgb 9.2 L Hct 28.5 L MCH RDW 17.7 H Seg Neuts % (Manual) Monocytes % (Manual) 17 H Nucleated RBC % Lymphocytes # (Manual) 0.8 L PT 18.0 H INR 1.40 H APTT 39.8 H POC ABG pCO2 POC ABG pO2 Sodium 131 L Potassium 8.6 H* Chloride 90.8 L Carbon Dioxide 12 L BUN 127 H Creatinine 9.6 H Glucose 189 H POC Glucose Calcium 7.4 L Phosphorus Magnesium Troponin T NT-Pro-B Natriuret Pep Albumin 2.9 L LDL Cholesterol Direct HDL Cholesterol Urine WBC (Auto) 01/01/18 01/01/18 01/01/18 07:48 07:48 08:00 WBC RBC Hgb Hct MCH RDW Seg Neuts % (Manual) Monocytes % (Manual) Nucleated RBC % Lymphocytes # (Manual) PT INR APTT POC ABG pCO2 POC ABG pO2 Sodium Potassium Chloride Carbon Dioxide BUN Creatinine Glucose POC Glucose Calcium Phosphorus Magnesium Troponin T 0.068 H NT-Pro-B Natriuret Pep 743.2 H Albumin LDL Cholesterol Direct 46 L HDL Cholesterol 18 L Urine WBC (Auto) 7.0 H 01/01/18 01/01/18 01/01/18 08:05 09:26 11:39 WBC RBC Hgb Hct MCH RDW Seg Neuts % (Manual) Monocytes % (Manual) Nucleated RBC % Lymphocytes # (Manual) PT INR APTT POC ABG pCO2 POC ABG pO2 Sodium 135 L Potassium 6.7 H* D Chloride 93.3 L Carbon Dioxide 10 L BUN 127 H Creatinine 9.4 H Glucose 185 H POC Glucose 185 H 207 H Calcium 7.3 L Phosphorus Magnesium Troponin T NT-Pro-B Natriuret Pep Albumin LDL Cholesterol Direct HDL Cholesterol Urine WBC (Auto) 0301/01/18 01/01/18 17:38 18:00 21:32 WBC RBC Hgb Hct MCH RDW Seg Neuts % (Manual) Monocytes % (Manual) Nucleated RBC % Lymphocytes # (Manual) PT INR APTT POC ABG pCO2 POC ABG pO2 Sodium Potassium Chloride 96.5 L Carbon Dioxide BUN 69 H Creatinine 5.5 H Glucose 105 H POC Glucose 133 H 127 H Calcium 7.0 L Phosphorus Magnesium Troponin T NT-Pro-B Natriuret Pep Albumin LDL Cholesterol Direct HDL Cholesterol Urine WBC (Auto) 01/02/18 01/02/18 01/02/18 04:18 05:00 05:00 WBC 4.2 L RBC 2.86 L Hgb 7.9 L Hct 24.5 L MCH RDW 18.1 H Seg Neuts % (Manual) Monocytes % (Manual) Nucleated RBC % Lymphocytes # (Manual) 1.0 L PT INR APTT POC ABG pCO2 34.1 L POC ABG pO2 53 L Sodium Potassium 5.5 H D Chloride 96.2 L Carbon Dioxide 19 L BUN 80 H Creatinine 6.5 H Glucose 191 H POC Glucose Calcium 7.8 L Phosphorus 10.40 H Magnesium 1.50 L Troponin T NT-Pro-B Natriuret Pep Albumin LDL Cholesterol Direct HDL Cholesterol Urine WBC (Auto) 01/02/18 01/02/18 01/02/18 07:28 11:35 15:25 WBC RBC Hgb Hct MCH RDW Seg Neuts % (Manual) Monocytes % (Manual) Nucleated RBC % Lymphocytes # (Manual) PT INR APTT POC ABG pCO2 POC ABG pO2 Sodium Potassium Chloride Carbon Dioxide BUN Creatinine Glucose POC Glucose 210 H 209 H 180 H Calcium Phosphorus Magnesium Troponin T NT-Pro-B Natriuret Pep Albumin LDL Cholesterol Direct HDL Cholesterol Urine WBC (Auto) 01/02/18 01/03/18 01/03/18 20:19 05:20 11:31 WBC RBC Hgb Hct MCH RDW Seg Neuts % (Manual) Monocytes % (Manual) Nucleated RBC % Lymphocytes # (Manual) PT INR APTT POC ABG pCO2 POC ABG pO2 Sodium Potassium Chloride Carbon Dioxide BUN Creatinine Glucose POC Glucose 231 H 267 H 213 H Calcium Phosphorus Magnesium Troponin T NT-Pro-B Natriuret Pep Albumin LDL Cholesterol Direct HDL Cholesterol Urine WBC (Auto) 01/03/18 01/03/18 01/03/18 17:36 20:37 20:37 WBC 4.4 L RBC 5.20 H Hgb Hct 44.1 H D MCH 27 L RDW 17.7 H Seg Neuts % (Manual) 76.0 H Monocytes % (Manual) Nucleated RBC % 1.0 H Lymphocytes # (Manual) 0.8 L PT INR APTT POC ABG pCO2 POC ABG pO2 Sodium Potassium Chloride 90.1 L Carbon Dioxide BUN 32 H Creatinine 4.0 H Glucose 225 H POC Glucose 142 H Calcium Phosphorus Magnesium Troponin T NT-Pro-B Natriuret Pep Albumin LDL Cholesterol Direct HDL Cholesterol Urine WBC (Auto) 01/03/18 01/04/18 01/04/18 21:25 05:20 05:20 WBC RBC 3.13 L Hgb 8.7 L D Hct 26.2 L D MCH RDW 17.5 H Seg Neuts % (Manual) Monocytes % (Manual) 8.0 H Nucleated RBC % Lymphocytes # (Manual) PT INR APTT POC ABG pCO2 POC ABG pO2 Sodium Potassium Chloride 95.5 L Carbon Dioxide BUN 37 H Creatinine 4.8 H Glucose 128 H POC Glucose 215 H Calcium Phosphorus Magnesium Troponin T NT-Pro-B Natriuret Pep Albumin LDL Cholesterol Direct HDL Cholesterol Urine WBC (Auto)
[2018-01-04] MEDS ORDERED: OxyCONTIN PO PRN (14:25)
[2018-01-04] MEDS: NORVASC PO SCH (14:46)
[2018-01-04] MEDS: PERCOCET 5/325 PO PRN ×2 (14:47→21:03)
[2018-01-04] MEDS: ROXICODONE PO PRN ×2 (14:47→21:03)
--- NOTE | 2018-01-04 15:25 | Progress Note ---
Assessment and Plan - Patient Problems (1) Acute kidney injury superimposed on chronic kidney disease Current Visit: Yes Status: Acute Plan to address problem: acute kidney injury superimposed on chronic disease vs progressive chronic kidney disease which is now end-stage renal disease. no signs of significant renal recovery, will need parts counterman HD/outpatient HD placement. Vascular surgery consult for permcath placement. (2) Metabolic acidosis Current Visit: Yes Status: Acute Plan to address problem: improving with HD (3) Hyperkalemia Current Visit: Yes Status: Acute Plan to address problem: improved with HD cont 2g K renal diet (4) Hyponatremia Current Visit: Yes Status: Acute Plan to address problem: Hypervolemic hyponatremia. Na improved with HD (5) Anemia Current Visit: Yes Status: Chronic Qualifiers: Chronic kidney disease stage: on chronic dialysis Plan to address problem: cont EPO with HD (6) Metabolic encephalopathy Current Visit: No Status: Acute Plan to address problem: Mental status improving with HD (7) Type 2 diabetes mellitus, uncontrolled Current Visit: No Status: Chronic Plan to address problem: Blood sugar management by primary attending Subjective Date of service: 01/04/18 Principal diagnosis: renal failure Interval history: pt awake, alert, in no acute respiratory distress. Objective - Vital Signs Vital signs: Vital Signs - 12hr 01/04/18 01/04/18 01/04/18 03:45 04:18 08:03 Temperature 98.7 F 98.4 F Pulse Rate 98 H 106 H 106 H Respiratory 20 20 Rate Blood Pressure 124/78 141/88 O2 Sat by Pulse 96 97 Oximetry 01/04/18 01/04/18 10:51 14:32 Temperature 98.1 F Pulse Rate Respiratory 20 Rate Blood Pressure 141/101 O2 Sat by Pulse 97 Oximetry - General Appearance General appearance: well-developed, well-nourished, appears stated age, obese EENT: ATNC, PERRL, mucous membranes moist Neck: no JVD, other (Rt IJ vascath ) Respiratory: Present: Clear to Ascultation Cardiology: regular, S1S2 Gastrointestinal: normoactive bowel sounds, obese Integumentary: no rash, other (no edema ) Neurologic: no focal deficit, alert and oriented x3, strength 5/5, CN 3-12 intact Psychiatric: mood/affect appropriate, cooperative - Lab 01/04/18 05:20 03/16/18 05:20 Most recent lab results Calcium 8.9 mg/dL (8.4-10.2) 01/04/18 05:20 Phosphorus 10.40 mg/dL (2.5-4.5) H 01/02/18 05:00 Magnesium 1.50 mg/dL (1.7-2.3) L 01/02/18 05:00
--- NOTE | 2018-01-04 15:50 | Progress Note ---
Assessment and Plan Assessment and plan: AMS, acute toxic encephalopathy - Likely due to opioid overdose - Resolved Acute renal failure - Nephrology is on board continue hemodialysis - Discussed with nephrology and said that patient may need outpatient hemodialysis Abdominal Pain, N/V - Patient was given Zofran and morphine for the pain - Resolved, his continue morphine and put her on Percocet Hyperkalemia - As ordered Morbid obesity - We'll consult her about weight loss, diet and exercise Volume overloadoverload - Resolving with hemodialysis DM with hyperglycemia - SSI DVT prophylaxis - heparin Disposition - Patient need outpatient dialysis chair. History Interval history: Patient was seen and evaluated this morning, patient was alert and oriented, patient's abdominal pain, nausea, and vomiting subsided. Hospitalist Physical - Physical exam Narrative exam: Not in cardiopulmonary distress. The patient is morbidly obese. Vital signs as documented. Head exam is unremarkable. No scleral icterus . Neck is without jugular venous distension, thyromegaly, or carotid bruits. Lungs are clear to auscultation. Cardiac exam reveals regular rate and Rhythm. First and second heart sounds normal. No murmurs, rubs or gallops. Abdominal exam reveals obese abdomen. Extremities are nonedematous and both femoral and pedal pulses are normal. QUARRY SUPERVISOR: Alert and oriented. - Constitutional Vitals: Temp Pulse Resp BP Pulse Ox 98.1 F 106 H 20 141/101 97 01/04/18 10:51 01/04/18 08:03 01/04/18 10:51 01/04/18 10:51 01/04/18 14:32 Results - Labs CBC & Chem 7: 01/04/18 05:20 01/04/18 05:20 Labs: Laboratory Last Values WBC 8.9 K/mm3 (4.5-11.0) 01/04/18 05:20 RBC 3.13 M/mm3 (3.65-5.03) L 01/04/18 05:20 Hgb 8.7 gm/dl (10.1-14.3) L D 01/04/18 05:20 Hct 26.2 % (30.3-42.9) L D 01/04/18 05:20 MCV 84 fl (79-97) 01/04/18 05:20 MCH 28 pg (28-32) 01/04/18 05:20 MCHC 33 % (30-34) 01/04/18 05:20 RDW 17.5 % (13.2-15.2) H 01/04/18 05:20 Plt Count 257 K/mm3 (140-440) 01/04/18 05:20 Lymph % (Auto) Gun [employer] Manager 01/02/18 05:00 Bleckley % (Auto) Gun [employer] Manager 01/02/18 05:00 Eos % (Auto) Gun [employer] Manager 01/02/18 05:00 Baso % (Auto) Gun [employer] Manager 01/02/18 05:00 Lymph # [employer] Manager 01/02/18 05:00 Bleckley # Gun Club Manager 01/02/18 05:00 Eos # Gun [employer] Manager 01/02/18 05:00 Baso # Gun [employer] Manager 01/02/18 05:00 Add Manual Diff Complete 01/04/18 05:20 Total Counted 100 01/04/18 05:20 Seg Neutrophils % Gun [employer] Manager 01/02/18 05:00 Seg Neuts % (Manual) 69.0 % (40.0-70.0) 01/04/18 05:20 Band Neutrophils % 6.0 % 01/04/18 05:20 Lymphocytes % (Manual) 17.0 % (13.4-35.0) 01/04/18 05:20 Reactive Lymphs % (Man) 0 % 01/04/18 05:20 Monocytes % (Manual) 8.0 % (0.0-7.3) H 01/04/18 05:20 Eosinophils % (Manual) 0 % (0.0-4.3) 01/04/18 05:20 Basophils % (Manual) 0 % (0.0-1.8) 01/04/18 05:20 Metamyelocytes % 0 % 01/04/18 05:20 Myelocytes % 0 % 01/04/18 05:20 Promyelocytes % 0 % 01/04/18 05:20 Blast Cells % 0 % 01/04/18 05:20 Nucleated RBC % Not Reportable 01/04/18 05:20 Seg Neutrophils # Gun [employer] Manager 01/02/18 05:00 Seg Neutrophils # Man 6.1 K/mm3 (1.8-7.7) 01/04/18 05:20 Band Neutrophils # 0.5 K/mm3 01/04/18 05:20 Lymphocytes # (Manual) 1.5 K/mm3 (1.2-5.4) 01/04/18 05:20 Abs React Lymphs (Man) 0.0 K/mm3 01/04/18 05:20 Monocytes # (Manual) 0.7 K/mm3 (0.0-0.8) 01/04/18 05:20 Eosinophils # (Manual) 0.0 K/mm3 (0.0-0.4) 01/04/18 05:20 Basophils # (Manual) 0.0 K/mm3 (0.0-0.1) 01/04/18 05:20 Metamyelocytes # 0.0 K/mm3 01/04/18 05:20 Myelocytes # 0.0 K/mm3 01/04/18 05:20 Promyelocytes # 0.0 K/mm3 01/04/18 05:20 Blast Cells # 0.0 K/mm3 01/04/18 05:20 WBC Morphology Not Reportable 01/04/18 05:20 Hypersegmented Neuts Not Reportable 01/04/18 05:20 Hyposegmented Neuts Not Reportable 01/04/18 05:20 Hypogranular Neuts Not Reportable 01/04/18 05:20 Smudge Cells Not Reportable 01/04/18 05:20 Toxic Granulation Not Reportable 01/04/18 05:20 Toxic Vacuolation Not Reportable 01/04/18 05:20 Dohle Bodies Not Reportable 01/04/18 05:20 Pelger-Huet Anomaly Not Reportable 01/04/18 05:20 Juliet Rods Not Reportable 01/04/18 05:20 Platelet Estimate Appears normal 01/04/18 05:20 Clumped Platelets Not Reportable 01/04/18 05:20 Plt Clumps, EDTA Not Reportable 01/04/18 05:20 Large Platelets Not Reportable 01/04/18 05:20 Giant Platelets Not Reportable 01/04/18 05:20 Platelet Satelliting Not Reportable 01/04/18 05:20 Plt Morphology Comment Not Reportable 01/04/18 05:20 RBC Morphology Not Reportable 01/04/18 05:20 Dimorphic RBCs Not Reportable 01/04/18 05:20 Polychromasia Not Reportable 01/04/18 05:20 Hypochromasia 1+ 01/04/18 05:20 Poikilocytosis Not Reportable 01/04/18 05:20 Anisocytosis 1+ 01/04/18 05:20 Microcytosis 1+ 01/04/18 05:20 Macrocytosis Not Reportable 01/04/18 05:20 Spherocytes Not Reportable 01/04/18 05:20 Pappenheimer Bodies Not Reportable 01/04/18 05:20 Sickle Cells Not Reportable 01/04/18 05:20 Target Cells Not Reportable 01/04/18 05:20 Tear Drop Cells Not Reportable 01/04/18 05:20 Ovalocytes Few 01/04/18 05:20 Stomatocytes 1+ 01/03/18 20:37 Helmet Cells Not Reportable 01/04/18 05:20 Adam-Hobgood Bodies Not Reportable 01/04/18 05:20 Union Rings Not Reportable 01/04/18 05:20 Dion Cells Not Reportable 01/04/18 05:20 Bite Cells Not Reportable 01/04/18 05:20 Crenated Cell Not Reportable 01/04/18 05:20 Elliptocytes Not Reportable 01/04/18 05:20 Acanthocytes (Spur) Not Reportable 01/04/18 05:20 Rouleaux Not Reportable 01/04/18 05:20 Hemoglobin C Crystals Not Reportable 01/04/18 05:20 Schistocytes Not Reportable 01/04/18 05:20 Malaria parasites Not Reportable 01/04/18 05:20 Gume Bodies Not Reportable 01/04/18 05:20 Hem Pathologist Commnt No 01/04/18 05:20 PT 18.0 Sec. (12.2-14.9) H 01/01/18 07:48 INR 1.40 (0.87-1.13) H 01/01/18 07:48 APTT 39.8 Sec. (24.2-36.6) H 01/01/18 07:48 POC ABG pH 7.373 (7.35-7.45) 01/02/18 04:18 POC ABG pCO2 34.1 (35-45) L 01/02/18 04:18 POC ABG pO2 53 (80-105) L 01/02/18 04:18 POC ABG HCO3 19.8 01/02/18 04:18 POC ABG Total CO2 21 01/02/18 04:18 POC ABG O2 Sat 87 01/02/18 04:18 POC ABG Base Excess -5 01/02/18 04:18 FiO2 40 % 01/02/18 04:18 Sodium 141 mmol/L (137-145) 01/04/18 05:20 Potassium 4.1 mmol/L (3.6-5.0) 01/04/18 05:20 Chloride 95.5 mmol/L (98-107) L 01/04/18 05:20 Carbon Dioxide 27 mmol/L (22-30) 01/04/18 05:20 Anion Gap 23 mmol/L 01/04/18 05:20 BUN 37 mg/dL (7-17) H 01/04/18 05:20 Creatinine 4.8 mg/dL (0.7-1.2) H 01/04/18 05:20 Estimated GFR 12 ml/min 01/04/18 05:20 BUN/Creatinine Ratio 8 % 01/04/18 05:20 Glucose 128 mg/dL (65-100) H 01/04/18 05:20 POC Glucose 215 (70-105) H 01/03/18 21:25 Lactic Acid 1.30 mmol/L (0.7-2.0) 01/01/18 07:48 Calcium 8.9 mg/dL (8.4-10.2) 01/04/18 05:20 Phosphorus 10.40 mg/dL (2.5-4.5) H 01/02/18 05:00 Magnesium 1.50 mg/dL (1.7-2.3) L 01/02/18 05:00 Total Bilirubin 0.30 mg/dL (0.1-1.2) 01/01/18 07:48 AST 7 units/L (5-40) 01/01/18 07:48 ALT 8 units/L (7-56) 01/01/18 07:48 Alkaline Phosphatase 127 units/L (35-129) 01/01/18 07:48 Ammonia 28.0 umol/L (25-60) 01/01/18 07:48 Troponin T 0.068 ng/mL (0.00-0.029) H 01/01/18 07:48 NT-Pro-B Natriuret Pep 743.2 pg/mL (0-450) H 01/01/18 07:48 Total Protein 7.4 g/dL (6.3-8.2) 01/01/18 07:48 Albumin 2.9 g/dL (3.9-5) L 01/01/18 07:48 Albumin/Globulin Ratio 0.6 % 01/01/18 07:48 Triglycerides 125 mg/dL (2-149) 01/01/18 07:48 Cholesterol 119 mg/dL (50-199) 01/01/18 07:48 LDL Cholesterol Direct 46 mg/dL (50-130) L 01/01/18 07:48 HDL Cholesterol 18 mg/dL (40-59) L 01/01/18 07:48 Cholesterol/HDL Ratio 6.61 % 01/01/18 07:48 HCG, Qual Negative (Negative) 01/01/18 08:11 Urine Color Yellow (Yellow) 01/01/18 08:00 Urine Turbidity Slightly-cloudy (Clear) 01/01/18 08:00 Urine pH 5.0 (5.0-7.0) 01/01/18 08:00 Ur Specific Jenkins 1.018 (1.003-1.030) 01/01/18 08:00 Urine Protein <15 mg/dl mg/dL (Negative) 01/01/18 08:00 Urine Glucose (UA) 50 mg/dL (Negative) 01/01/18 08:00 Urine Ketones Neg mg/dL (Negative) 01/01/18 08:00 Urine Blood Sm (Negative) 01/01/18 08:00 Urine Nitrite Neg (Negative) 01/01/18 08:00 Urine Bilirubin Neg (Negative) 01/01/18 08:00 Urine Urobilinogen < 2.0 mg/dL (<2.0) 01/01/18 08:00 Ur Leukocyte Esterase Tr (Negative) 01/01/18 08:00 Urine WBC (Auto) 7.0 /HPF (0.0-6.0) H 01/01/18 08:00 Urine RBC (Auto) 6.0 /HPF (0.0-6.0) 01/01/18 08:00 U Epithel Cells (Auto) < 1.0 /HPF (0-13.0) 01/01/18 08:00 Urine Bacteria (Auto) 1+ /HPF (Negative) 01/01/18 08:00 Urine Yeast (Budding) 1+ /HPF 01/01/18 08:00 Urine Opiates Screen Presumptive positive 01/01/18 08:00 Urine Methadone Screen Presumptive negative 01/01/18 08:00 Ur Barbiturates Screen Presumptive negative 01/01/18 08:00 Ur Phencyclidine Scrn Presumptive negative 01/01/18 08:00 Ur Amphetamines Screen Presumptive negative 01/01/18 08:00 U Benzodiazepines Scrn Presumptive negative 01/01/18 08:00 Urine Cocaine Screen Presumptive negative 01/01/18 08:00 U Marijuana (THC) Screen Presumptive negative 01/01/18 08:00 Drugs of Abuse Note Disclamer 01/01/18 08:00 Hep Bs Antigen Non-reactive (Negative) 01/02/18 05:00 Hepatitis C Antibody Non-reactive (NonReactive) 01/02/18 05:00
--- NOTE | 2018-01-04 16:18 | Event Note ---
Date: 01/04/18 Set up for vascath to permcath conversion on sunday NPO after MN on sunday for sunday procedure
[2018-01-05] MEDS: CLEOCIN 600 MG/50 mL 600 MG/50 ML BAG IV SCH ×3 (03:04→21:18)
[2018-01-05] MEDS: HumaLOG SUB-Q SCH ×4 (08:25→21:19)
[2018-01-05 09:38] LABS: Calcium 8.3 mg/dL (8.4-10.2)
[2018-01-05] MEDS: NORVASC PO SCH (10:33)
[2018-01-05] MEDS: PEPCID PO SCH (10:34)
[2018-01-05] MEDS: PERCOCET 5/325 PO PRN ×3 (10:34→23:22)
[2018-01-05] MEDS: ROXICODONE PO PRN ×3 (10:35→23:21)
[2018-01-05] MEDS: HEPARIN SUB-Q SCH ×2 (10:39→21:18)
--- NOTE | 2018-01-05 12:01 | Progress Note ---
Assessment and Plan - Patient Problems (1) Acute kidney injury superimposed on chronic kidney disease Current Visit: Yes Status: Acute Plan to address problem: acute kidney injury superimposed on chronic disease vs progressive chronic kidney disease which is now end-stage renal disease. no signs of significant renal recovery, will need intermediate project manager HD/outpatient HD placement. Vascular surgery consult for permcath placement. (2) Metabolic acidosis Current Visit: Yes Status: Acute Plan to address problem: improving with HD (3) Hyperkalemia Current Visit: Yes Status: Acute Plan to address problem: improved with HD cont 2g K renal diet (4) Hyponatremia Current Visit: Yes Status: Acute Plan to address problem: Hypervolemic hyponatremia. Na improved with HD (5) Anemia Current Visit: Yes Status: Chronic Qualifiers: Chronic kidney disease stage: on chronic dialysis Plan to address problem: cont EPO with HD (6) Metabolic encephalopathy Current Visit: No Status: Acute Plan to address problem: Mental status improving with HD (7) Type 2 diabetes mellitus, uncontrolled Current Visit: No Status: Chronic Plan to address problem: Blood sugar management by primary attending Subjective Date of service: 01/05/18 Principal diagnosis: renal failure Interval history: pt awake, alert, in no acute respiratory distress. Objective - Vital Signs Vital signs: Vital Signs - 12hr 01/05/18 01/05/18 01/05/18 01:08 04:00 05:39 Temperature 98.3 F 97.8 F Pulse Rate 87 88 Respiratory 20 20 Rate Blood Pressure 120/70 133/86 O2 Sat by Pulse 97 Oximetry 01/05/18 01/05/18 01/05/18 05:40 08:08 08:10 Temperature 98.1 F Pulse Rate 88 86 66 Respiratory 20 Rate Blood Pressure 130/93 O2 Sat by Pulse 98 98 Oximetry 01/05/18 01/05/18 01/05/18 10:33 11:15 11:30 Temperature 98.6 F Pulse Rate 86 91 H 85 Respiratory 16 Rate Blood Pressure 130/93 163/91 158/100 O2 Sat by Pulse Oximetry 01/05/18 11:45 Temperature Pulse Rate 95 H Respiratory Rate Blood Pressure 140/54 O2 Sat by Pulse Oximetry - General Appearance General appearance: well-developed, well-nourished, appears stated age EENT: ATNC, PERRL, mucous membranes moist Neck: no JVD Respiratory: Present: Clear to Ascultation Cardiology: regular, S1S2 Gastrointestinal: normoactive bowel sounds, obese Integumentary: no rash, other (trace edema ) Neurologic: no focal deficit, alert and oriented x3, strength 5/5, CN 3-12 intact Psychiatric: mood/affect appropriate, cooperative - Lab 01/04/18 05:20 01/05/18 08:55 Most recent lab results Calcium 8.3 mg/dL (8.4-10.2) L 01/05/18 08:55 Phosphorus 10.40 mg/dL (2.5-4.5) H 01/02/18 05:00 Magnesium 1.50 mg/dL (1.7-2.3) L 01/02/18 05:00
[2018-01-05] MEDS ORDERED: NACL 0.9 (PRIMING MACHINE ONLY DIALYSIS) MC ONE (12:03)
--- NOTE | 2018-01-05 15:42 | Progress Note ---
Assessment and Plan Congestive heart failure with acute decompensation. Clinically improved and controlled Acute kidney injury. On hemodialysis Severe hyperkalemia improved Up was to be resolved Active bronchospasm-asthma. Improved Severe morbid obesity Obesity hypoventilation syndromes/RISSA. No hypercapnia unless ABGs. She may still need BiPAP for RISSA treatment at this point Hypertension Chronic pain syndrome Recommendations Hemodialysis per nephrology Serial electrolytes. Hospital medicine following Albuterol 2.5 milligram nebulizations every 4-6 hours with or without ipratropium Oxygen support via nasal cannula or mask to maintain oximetry over 92% BiPAP at night. She refused BiPAP last 2 night DVT prophylaxis Sleep studies as outpatient. Subjective Date of service: 01/05/18 Principal diagnosis: renal failure Interval history: Patient currently on dialysis Objective Vital Signs - 12hr 01/05/18 01/05/18 01/05/18 04:00 05:39 05:40 Temperature 97.8 F Pulse Rate 87 88 88 Respiratory 20 Rate Blood Pressure 133/86 O2 Sat by Pulse 97 98 Oximetry 01/05/18 01/05/18 01/05/18 08:08 08:10 10:33 Temperature 98.1 F Pulse Rate 86 66 86 Respiratory 20 Rate Blood Pressure 130/93 130/93 O2 Sat by Pulse 98 Oximetry 01/05/18 01/05/18 01/05/18 11:15 11:30 11:45 Temperature 98.6 F Pulse Rate 91 H 85 95 H Respiratory 16 Rate Blood Pressure 163/91 158/100 140/54 O2 Sat by Pulse Oximetry 01/05/18 01/05/18 01/05/18 12:00 12:15 12:30 Temperature Pulse Rate 97 H 94 H 113 H Respiratory Rate Blood Pressure 145/80 153/90 146/94 O2 Sat by Pulse Oximetry 01/05/18 01/05/18 01/05/18 12:45 13:00 13:15 Temperature Pulse Rate 92 H 95 H 90 Respiratory Rate Blood Pressure 121/86 126/77 136/77 O2 Sat by Pulse Oximetry 01/05/18 01/05/18 01/05/18 13:30 14:00 14:15 Temperature Pulse Rate 102 H 107 H 108 H Respiratory Rate Blood Pressure 121/81 129/84 90/47 O2 Sat by Pulse Oximetry 01/05/18 01/05/18 14:30 14:45 Temperature Pulse Rate 118 H 117 H Respiratory Rate Blood Pressure 110/58 110/69 O2 Sat by Pulse Oximetry Constitutional: alert, other (on HD) Eyes: non-icteric ENT: oropharynx moist Neck: no JVD, other (vbraod neck) Ascultation: Right: wheezes, Left: clear, Bilateral: rales Cardiovascular: regular rate and rhythm Gastrointestinal: normoactive bowel sounds, non-distended Extremities: no cyanosis, no edema Neurologic: normal mental status, non-focal exam, pupils equal and round, CN II- XII normal, motor strength normal and CBC and BMP: 01/04/18 05:20 01/05/18 08:55 ABG, PT/INR, D-dimer: ABG POC ABG pH 7.373 (7.35-7.45) 01/02/18 04:18 POC ABG pCO2 34.1 (35-45) L 01/02/18 04:18 POC ABG pO2 53 (80-105) L 01/02/18 04:18 POC ABG HCO3 19.8 01/02/18 04:18 POC ABG Total CO2 21 01/02/18 04:18 POC ABG O2 Sat 87 01/02/18 04:18 PT/INR, D-dimer PT 18.0 Sec. (12.2-14.9) H 01/01/18 07:48 INR 1.40 (0.87-1.13) H 01/01/18 07:48 Abnormal lab findings: Abnormal Labs 01/01/18 01/01/18 01/01/18 07:48 07:48 07:48 WBC 4.3 L RBC 3.33 L Hgb 9.2 L Hct 28.5 L MCH RDW 17.7 H Seg Neuts % (Manual) Monocytes % (Manual) 17 H Nucleated RBC % Lymphocytes # (Manual) 0.8 L PT 18.0 H INR 1.40 H APTT 39.8 H POC ABG pCO2 POC ABG pO2 Sodium 131 L Potassium 8.6 H* Chloride 90.8 L Carbon Dioxide 12 L BUN 127 H Creatinine 9.6 H Glucose 189 H POC Glucose Calcium 7.4 L Phosphorus Magnesium Troponin T NT-Pro-B Natriuret Pep Albumin 2.9 L LDL Cholesterol Direct HDL Cholesterol Urine WBC (Auto) 01/01/18 01/01/18 01/01/18 07:48 07:48 08:00 WBC RBC Hgb Hct MCH RDW Seg Neuts % (Manual) Monocytes % (Manual) Nucleated RBC % Lymphocytes # (Manual) PT INR APTT POC ABG pCO2 POC ABG pO2 Sodium Potassium Chloride Carbon Dioxide BUN Creatinine Glucose POC Glucose Calcium Phosphorus Magnesium Troponin T 0.068 H NT-Pro-B Natriuret Pep 743.2 H Albumin LDL Cholesterol Direct 46 L HDL Cholesterol 18 L Urine WBC (Auto) 7.0 H 01/01/18 01/01/18 01/01/18 08:05 09:26 11:39 WBC RBC Hgb Hct MCH RDW Seg Neuts % (Manual) Monocytes % (Manual) Nucleated RBC % Lymphocytes # (Manual) PT INR APTT POC ABG pCO2 POC ABG pO2 Sodium 135 L Potassium 6.7 H* D Chloride 93.3 L Carbon Dioxide 10 L BUN 127 H Creatinine 9.4 H Glucose 185 H POC Glucose 185 H 207 H Calcium 7.3 L Phosphorus Magnesium Troponin T NT-Pro-B Natriuret Pep Albumin LDL Cholesterol Direct HDL Cholesterol Urine WBC (Auto) 01/01/18 01/01/18 01/01/18 17:38 18:00 21:32 WBC RBC Hgb Hct MCH RDW Seg Neuts % (Manual) Monocytes % (Manual) Nucleated RBC % Lymphocytes # (Manual) PT INR APTT POC ABG pCO2 POC ABG pO2 Sodium Potassium Chloride 96.5 L Carbon Dioxide BUN 69 H Creatinine 5.5 H Glucose 105 H POC Glucose 133 H 127 H Calcium 7.0 L Phosphorus Magnesium Troponin T NT-Pro-B Natriuret Pep Albumin LDL Cholesterol Direct HDL Cholesterol Urine WBC (Auto) 01/02/18 01/02/18 01/02/18 04:18 05:00 05:00 WBC 4.2 L RBC 2.86 L Hgb 7.9 L Hct 24.5 L MCH RDW 18.1 H Seg Neuts % (Manual) Monocytes % (Manual) Nucleated RBC % Lymphocytes # (Manual) 1.0 L PT INR APTT POC ABG pCO2 34.1 L POC ABG pO2 53 L Sodium Potassium 5.5 H D Chloride 96.2 L Carbon Dioxide 19 L BUN 80 H Creatinine 6.5 H Glucose 191 H POC Glucose Calcium 7.8 L Phosphorus 10.40 H Magnesium 1.50 L Troponin T NT-Pro-B Natriuret Pep Albumin LDL Cholesterol Direct HDL Cholesterol Urine WBC (Auto) 01/02/18 01/02/18 01/02/18 07:28 11:35 15:25 WBC RBC Hgb Hct MCH RDW Seg Neuts % (Manual) Monocytes % (Manual) Nucleated RBC % Lymphocytes # (Manual) PT INR APTT POC ABG pCO2 POC ABG pO2 Sodium Potassium Chloride Carbon Dioxide BUN Creatinine Glucose POC Glucose 210 H 209 H 180 H Calcium Phosphorus Magnesium Troponin T NT-Pro-B Natriuret Pep Albumin LDL Cholesterol Direct HDL Cholesterol Urine WBC (Auto) 01/02/18 01/03/18 01/03/18 20:19 05:20 11:31 WBC RBC Hgb Hct MCH RDW Seg Neuts % (Manual) Monocytes % (Manual) Nucleated RBC % Lymphocytes # (Manual) PT INR APTT POC ABG pCO2 POC ABG pO2 Sodium Potassium Chloride Carbon Dioxide BUN Creatinine Glucose POC Glucose 231 H 267 H 213 H Calcium Phosphorus Magnesium Troponin T NT-Pro-B Natriuret Pep Albumin LDL Cholesterol Direct HDL Cholesterol Urine WBC (Auto) 01/03/18 01/03/18 01/03/18 17:36 20:37 20:37 WBC 4.4 L RBC 5.20 H Hgb Hct 44.1 H D MCH 27 L RDW 17.7 H Seg Neuts % (Manual) 76.0 H Monocytes % (Manual) Nucleated RBC % 1.0 H Lymphocytes # (Manual) 0.8 L PT INR APTT POC ABG pCO2 POC ABG pO2 Sodium Potassium Chloride 90.1 L Carbon Dioxide BUN 32 H Creatinine 4.0 H Glucose 225 H POC Glucose 142 H Calcium Phosphorus Magnesium Troponin T NT-Pro-B Natriuret Pep Albumin LDL Cholesterol Direct HDL Cholesterol Urine WBC (Auto) 01/03/18 01/04/18 01/04/18 21:25 05:20 05:20 WBC RBC 3.13 L Hgb 8.7 L D Hct 26.2 L D MCH RDW 17.5 H Seg Neuts % (Manual) Monocytes % (Manual) 8.0 H Nucleated RBC % Lymphocytes # (Manual) PT INR APTT POC ABG pCO2 POC ABG pO2 Sodium Potassium Chloride 95.5 L Carbon Dioxide BUN 37 H Creatinine 4.8 H Glucose 128 H POC Glucose 215 H Calcium Phosphorus Magnesium Troponin T NT-Pro-B Natriuret Pep Albumin LDL Cholesterol Direct HDL Cholesterol Urine WBC (Auto) 01/04/18 01/04/18 01/04/18 06:51 10:55 16:20 WBC RBC Hgb Hct MCH RDW Seg Neuts % (Manual) Monocytes % (Manual) Nucleated RBC % Lymphocytes # (Manual) PT INR APTT POC ABG pCO2 POC ABG pO2 Sodium Potassium Chloride Carbon Dioxide BUN Creatinine Glucose POC Glucose 144 H 155 H 179 H Calcium Phosphorus Magnesium Troponin T NT-Pro-B Natriuret Pep Albumin LDL Cholesterol Direct HDL Cholesterol Urine WBC (Auto) 01/04/18 01/05/18 01/05/18 22:08 06:40 08:55 WBC RBC Hgb Hct MCH RDW Seg Neuts % (Manual) Monocytes % (Manual) Nucleated RBC % Lymphocytes # (Manual) PT INR APTT POC ABG pCO2 POC ABG pO2 Sodium Potassium Chloride 93.7 L Carbon Dioxide BUN 48 H Creatinine 5.2 H Glucose 130 H POC Glucose 188 H 147 H Calcium 8.3 L Phosphorus Magnesium Troponin T NT-Pro-B Natriuret Pep Albumin LDL Cholesterol Direct HDL Cholesterol Urine WBC (Auto)
--- NOTE | 2018-01-05 16:23 | Progress Note ---
Assessment and Plan Assessment and plan: AMS, acute toxic encephalopathy - Likely due to opioid overdose - Resolved Acute renal failure - Nephrology is on board continue hemodialysis - Discussed with nephrology and said that patient may need outpatient hemodialysis Abdominal Pain, N/V - Patient was given Zofran and morphine for the pain - Resolved, his continue morphine and put her on Percocet Hyperkalemia - resolved Morbid obesity - We'll consult her about weight loss, diet and exercise Volume overloadoverload - Resolving with hemodialysis DM with hyperglycemia - SSI DVT prophylaxis - heparin Disposition - Patient need outpatient dialysis chair. History Interval history: Patient was seen and evaluated this morning, patient was alert and oriented, patient's abdominal pain, nausea, and vomiting subsided. Hospitalist Physical - Physical exam Narrative exam: Not in cardiopulmonary distress. The patient is morbidly obese. Vital signs as documented. Head exam is unremarkable. No scleral icterus . Neck is without jugular venous distension, thyromegaly, or carotid bruits. Lungs are clear to auscultation. Cardiac exam reveals regular rate and Rhythm. First and second heart sounds normal. No murmurs, rubs or gallops. Abdominal exam reveals obese abdomen. Extremities are nonedematous and both femoral and pedal pulses are normal. GINNER: Alert and oriented. - Constitutional Vitals: Temp Pulse Resp BP Pulse Ox 98.6 F 81 16 131/73 98 01/05/18 15:30 01/05/18 15:30 01/05/18 15:30 01/05/18 15:30 01/05/18 08:08 Results - Labs CBC & Chem 7: 01/04/18 05:20 01/05/18 08:55 Labs: Laboratory Last Values WBC 8.9 K/mm3 (4.5-11.0) 01/04/18 05:20 RBC 3.13 M/mm3 (3.65-5.03) L 01/04/18 05:20 Hgb 8.7 gm/dl (10.1-14.3) L D 01/04/18 05:20 Hct 26.2 % (30.3-42.9) L D 01/04/18 05:20 MCV 84 fl (79-97) 01/04/18 05:20 MCH 28 pg (28-32) 01/04/18 05:20 MCHC 33 % (30-34) 01/04/18 05:20 RDW 17.5 % (13.2-15.2) H 01/04/18 05:20 Plt Count 257 K/mm3 (140-440) 01/04/18 05:20 Lymph % (Auto) [employer] 01/02/18 05:00 [place] % (Auto) [employer] 01/02/18 05:00 Eos % (Auto) [employer] 01/02/18 05:00 Baso % (Auto) [employer] 01/02/18 05:00 Lymph # [employer] 01/02/18 05:00 Ellis # [employer] 01/02/18 05:00 Eos # [employer] 01/02/18 05:00 Baso # [employer] 01/02/18 05:00 Add Manual Diff Complete 01/04/18 05:20 Total Counted 100 01/04/18 05:20 Seg Neutrophils % [employer] 01/02/18 05:00 Seg Neuts % (Manual) 69.0 % (40.0-70.0) 01/04/18 05:20 Band Neutrophils % 6.0 % 01/04/18 05:20 Lymphocytes % (Manual) 17.0 % (13.4-35.0) 01/04/18 05:20 Reactive Lymphs % (Man) 0 % 01/04/18 05:20 Monocytes % (Manual) 8.0 % (0.0-7.3) H 01/04/18 05:20 Eosinophils % (Manual) 0 % (0.0-4.3) 01/04/18 05:20 Basophils % (Manual) 0 % (0.0-1.8) 01/04/18 05:20 Metamyelocytes % 0 % 01/04/18 05:20 Myelocytes % 0 % 01/04/18 05:20 Promyelocytes % 0 % 01/04/18 05:20 Blast Cells % 0 % 01/04/18 05:20 Nucleated RBC % Not Reportable 01/04/18 05:20 Seg Neutrophils # [employer] 01/02/18 05:00 Seg Neutrophils # Man 6.1 K/mm3 (1.8-7.7) 01/04/18 05:20 Band Neutrophils # 0.5 K/mm3 01/04/18 05:20 Lymphocytes # (Manual) 1.5 K/mm3 (1.2-5.4) 01/04/18 05:20 Abs React Lymphs (Man) 0.0 K/mm3 01/04/18 05:20 Monocytes # (Manual) 0.7 K/mm3 (0.0-0.8) 01/04/18 05:20 Eosinophils # (Manual) 0.0 K/mm3 (0.0-0.4) 01/04/18 05:20 Basophils # (Manual) 0.0 K/mm3 (0.0-0.1) 01/04/18 05:20 Metamyelocytes # 0.0 K/mm3 01/04/18 05:20 Myelocytes # 0.0 K/mm3 01/04/18 05:20 Promyelocytes # 0.0 K/mm3 01/04/18 05:20 Blast Cells # 0.0 K/mm3 01/04/18 05:20 WBC Morphology Not Reportable 01/04/18 05:20 Hypersegmented Neuts Not Reportable 01/04/18 05:20 Hyposegmented Neuts Not Reportable 01/04/18 05:20 Hypogranular Neuts Not Reportable 01/04/18 05:20 Smudge Cells Not Reportable 01/04/18 05:20 Toxic Granulation Not Reportable 01/04/18 05:20 Toxic Vacuolation Not Reportable 01/04/18 05:20 Dohle Bodies Not Reportable 01/04/18 05:20 Pelger-Huet Anomaly Not Reportable 01/04/18 05:20 Juliet Rods Not Reportable 01/04/18 05:20 Platelet Estimate Appears normal 01/04/18 05:20 Clumped Platelets Not Reportable 01/04/18 05:20 Plt Clumps, EDTA Not Reportable 01/04/18 05:20 Large Platelets Not Reportable 01/04/18 05:20 Giant Platelets Not Reportable 01/04/18 05:20 Platelet Satelliting Not Reportable 01/04/18 05:20 Plt Morphology Comment Not Reportable 01/04/18 05:20 RBC Morphology Not Reportable 01/04/18 05:20 Dimorphic RBCs Not Reportable 01/04/18 05:20 Polychromasia Not Reportable 01/04/18 05:20 Hypochromasia 1+ 01/04/18 05:20 Poikilocytosis Not Reportable 01/04/18 05:20 Anisocytosis 1+ 01/04/18 05:20 Microcytosis 1+ 01/04/18 05:20 Macrocytosis Not Reportable 01/04/18 05:20 Spherocytes Not Reportable 01/04/18 05:20 Pappenheimer Bodies Not Reportable 01/04/18 05:20 Sickle Cells Not Reportable 01/04/18 05:20 Target Cells Not Reportable 01/04/18 05:20 Tear Drop Cells Not Reportable 01/04/18 05:20 Ovalocytes Few 01/04/18 05:20 Stomatocytes 1+ 01/03/18 20:37 Helmet Cells Not Reportable 01/04/18 05:20 [place] Bodies Not Reportable 01/04/18 05:20 [place] Rings Not Reportable 01/04/18 05:20 [place] Cells Not Reportable 01/04/18 05:20 Bite Cells Not Reportable 01/04/18 05:20 Crenated Cell Not Reportable 01/04/18 05:20 Elliptocytes Not Reportable 01/04/18 05:20 Acanthocytes (Spur) Not Reportable 01/04/18 05:20 Rouleaux Not Reportable 01/04/18 05:20 Hemoglobin C Crystals Not Reportable 01/04/18 05:20 Schistocytes Not Reportable 01/04/18 05:20 Malaria parasites Not Reportable 01/04/18 05:20 Gume Bodies Not Reportable 01/04/18 05:20 Hem Pathologist Commnt No 01/04/18 05:20 PT 18.0 Sec. (12.2-14.9) H 01/01/18 07:48 INR 1.40 (0.87-1.13) H 01/01/18 07:48 APTT 39.8 Sec. (24.2-36.6) H 01/01/18 07:48 POC ABG pH 7.373 (7.35-7.45) 01/02/18 04:18 POC ABG pCO2 34.1 (35-45) L 01/02/18 04:18 POC ABG pO2 53 (80-105) L 01/02/18 04:18 POC ABG HCO3 19.8 01/02/18 04:18 POC ABG Total CO2 21 01/02/18 04:18 POC ABG O2 Sat 87 01/02/18 04:18 POC ABG Base Excess -5 01/02/18 04:18 FiO2 40 % 01/02/18 04:18 Sodium 137 mmol/L (137-145) 01/05/18 08:55 Potassium 4.1 mmol/L (3.6-5.0) 01/05/18 08:55 Chloride 93.7 mmol/L (98-107) L 01/05/18 08:55 Carbon Dioxide 25 mmol/L (22-30) 01/05/18 08:55 Anion Gap 22 mmol/L 01/05/18 08:55 BUN 48 mg/dL (7-17) H 01/05/18 08:55 Creatinine 5.2 mg/dL (0.7-1.2) H 01/05/18 08:55 Estimated GFR 11 ml/min 01/05/18 08:55 BUN/Creatinine Ratio 9 % 01/05/18 08:55 Glucose 130 mg/dL (65-100) H 01/05/18 08:55 POC Glucose 147 (70-105) H 01/05/18 06:40 Lactic Acid 1.30 mmol/L (0.7-2.0) 01/01/18 07:48 Calcium 8.3 mg/dL (8.4-10.2) L 01/05/18 08:55 Phosphorus 10.40 mg/dL (2.5-4.5) H 01/02/18 05:00 Magnesium 1.50 mg/dL (1.7-2.3) L 01/02/18 05:00 Total Bilirubin 0.30 mg/dL (0.1-1.2) 01/01/18 07:48 AST 7 units/L (5-40) 01/01/18 07:48 ALT 8 units/L (7-56) 01/01/18 07:48 Alkaline Phosphatase 127 units/L (35-129) 01/01/18 07:48 Ammonia 28.0 umol/L (25-60) 01/01/18 07:48 Troponin T 0.068 ng/mL (0.00-0.029) H 01/01/18 07:48 NT-Pro-B Natriuret Pep 743.2 pg/mL (0-450) H 01/01/18 07:48 Total Protein 7.4 g/dL (6.3-8.2) 01/01/18 07:48 Albumin 2.9 g/dL (3.9-5) L 01/01/18 07:48 Albumin/Globulin Ratio 0.6 % 01/01/18 07:48 Triglycerides 125 mg/dL (2-149) 01/01/18 07:48 Cholesterol 119 mg/dL (50-199) 01/01/18 07:48 LDL Cholesterol Direct 46 mg/dL (50-130) L 01/01/18 07:48 HDL Cholesterol 18 mg/dL (40-59) L 01/01/18 07:48 Cholesterol/HDL Ratio 6.61 % 01/01/18 07:48 HCG, Qual Negative (Negative) 01/01/18 08:11 Urine Color Yellow (Yellow) 01/01/18 08:00 Urine Turbidity Slightly-cloudy (Clear) 01/01/18 08:00 Urine pH 5.0 (5.0-7.0) 01/01/18 08:00 Ur Specific [place] 1.018 (1.003-1.030) 01/01/18 08:00 Urine Protein <15 mg/dl mg/dL (Negative) 01/01/18 08:00 Urine Glucose (UA) 50 mg/dL (Negative) 01/01/18 08:00 Urine Ketones Neg mg/dL (Negative) 01/01/18 08:00 Urine Blood Sm (Negative) 01/01/18 08:00 Urine Nitrite Neg (Negative) 01/01/18 08:00 Urine Bilirubin Neg (Negative) 01/01/18 08:00 Urine Urobilinogen < 2.0 mg/dL (<2.0) 01/01/18 08:00 Ur Leukocyte Esterase Tr (Negative) 01/01/18 08:00 Urine WBC (Auto) 7.0 /HPF (0.0-6.0) H 01/01/18 08:00 Urine RBC (Auto) 6.0 /HPF (0.0-6.0) 01/01/18 08:00 U Epithel Cells (Auto) < 1.0 /HPF (0-13.0) 01/01/18 08:00 Urine Bacteria (Auto) 1+ /HPF (Negative) 01/01/18 08:00 Urine Yeast (Budding) 1+ /HPF 01/01/18 08:00 Urine Opiates Screen Presumptive positive 01/01/18 08:00 Urine Methadone Screen Presumptive negative 01/01/18 08:00 Ur Barbiturates Screen Presumptive negative 01/01/18 08:00 Ur Phencyclidine Scrn Presumptive negative 01/01/18 08:00 Ur Amphetamines Screen Presumptive negative 01/01/18 08:00 U Benzodiazepines Scrn Presumptive negative 01/01/18 08:00 Urine Cocaine Screen Presumptive negative 01/01/18 08:00 U Marijuana (THC) Screen Presumptive negative 01/01/18 08:00 Drugs of Abuse Note Disclamer 01/01/18 08:00 Hep Bs Antigen Non-reactive (Negative) 01/02/18 05:00 Hepatitis C Antibody Non-reactive (NonReactive) 01/02/18 05:00
[2018-01-05] MEDS: PROCRIT IV PRN (17:12)
[2018-01-05] MEDS: HEPARIN IV PRN (17:13)
[2018-01-05] MEDS: PROVENTIL IH SCH ×4 (18:14→20:55)
[2018-01-06] MEDS: ZOFRAN IV PRN ×3 (00:21→10:19)
[2018-01-06] MEDS: PROVENTIL IH SCH ×5 (03:00→20:18)
[2018-01-06] MEDS: CLEOCIN 600 MG/50 mL 600 MG/50 ML BAG IV SCH ×3 (04:01→22:43)
[2018-01-06] MEDS: PERCOCET 5/325 PO PRN (05:58)
[2018-01-06] MEDS ORDERED: MORPHINE IV PRN (09:03)
[2018-01-06] MEDS: HumaLOG SUB-Q SCH ×4 (09:53→22:46)
[2018-01-06] MEDS: NORVASC PO SCH (10:02)
[2018-01-06] MEDS: HEPARIN SUB-Q SCH ×2 (10:03→22:44)
[2018-01-06] MEDS: PEPCID PO SCH (10:03)
[2018-01-06] MEDS: MORPHINE IV PRN ×4 (10:19→22:45)
--- NOTE | 2018-01-06 12:38 | Progress Note ---
Assessment and Plan Congestive heart failure with acute decompensation. Clinically improved and controlled Acute kidney injury. On hemodialysis Severe hyperkalemia improved Active bronchospasm-asthma. Improved Severe morbid obesity RISSA. No hypercapnia . She may still need BiPAP/CPAP for RISSA treatment at this point Hypertension Chronic pain syndrome Recommendations Hemodialysis per nephrology Serial electrolytes. Hospital medicine following Albuterol 2.5 milligram nebulizations every 4-6 hours with or without ipratropium Oxygen support via nasal cannula or mask to maintain oximetry over 92% BiPAP at night. She refused BiPAP last 2 night DVT prophylaxis Sleep studies as outpatient. Subjective Date of service: 01/06/18 Principal diagnosis: renal failure Interval history: Patient awake and responsive. No respiratory distress or shortness of breath at rest Objective Vital Signs - 12hr 01/06/18 01/06/18 01/06/18 04:00 04:53 08:31 Temperature 98.2 F 98.6 F Pulse Rate 88 86 102 H Respiratory 18 20 Rate Blood Pressure 115/79 103/61 O2 Sat by Pulse 99 98 Oximetry 01/06/18 10:02 Temperature Pulse Rate 104 H Respiratory Rate Blood Pressure O2 Sat by Pulse Oximetry Constitutional: alert, other (on HD) Eyes: non-icteric ENT: oropharynx moist Neck: no JVD, other (vbraod neck) Ascultation: Right: wheezes, Left: clear, Bilateral: rales Cardiovascular: regular rate and rhythm Gastrointestinal: normoactive bowel sounds, non-distended Extremities: no cyanosis, no edema Neurologic: normal mental status, non-focal exam, pupils equal and round, CN II- XII normal, motor strength normal and CBC and BMP: 01/04/18 05:20 01/05/18 08:55 ABG, PT/INR, D-dimer: ABG POC ABG pH 7.373 (7.35-7.45) 01/02/18 04:18 POC ABG pCO2 34.1 (35-45) L 01/02/18 04:18 POC ABG pO2 53 (80-105) L 01/02/18 04:18 POC ABG HCO3 19.8 01/02/18 04:18 POC ABG Total CO2 21 01/02/18 04:18 POC ABG O2 Sat 87 01/02/18 04:18 PT/INR, D-dimer PT 18.0 Sec. (12.2-14.9) H 01/01/18 07:48 INR 1.40 (0.87-1.13) H 01/01/18 07:48 Abnormal lab findings: Abnormal Labs 01/01/18 01/01/18 01/01/18 07:48 07:48 07:48 WBC 4.3 L RBC 3.33 L Hgb 9.2 L Hct 28.5 L MCH RDW 17.7 H Seg Neuts % (Manual) Monocytes % (Manual) 17 H Nucleated RBC % Lymphocytes # (Manual) 0.8 L PT 18.0 H INR 1.40 H APTT 39.8 H POC ABG pCO2 POC ABG pO2 Sodium 131 L Potassium 8.6 H* Chloride 90.8 L Carbon Dioxide 12 L BUN 127 H Creatinine 9.6 H Glucose 189 H POC Glucose Calcium 7.4 L Phosphorus Magnesium Troponin T NT-Pro-B Natriuret Pep Albumin 2.9 L LDL Cholesterol Direct HDL Cholesterol Urine WBC (Auto) 01/01/18 01/01/18 01/01/18 07:48 07:48 08:00 WBC RBC Hgb Hct MCH RDW Seg Neuts % (Manual) Monocytes % (Manual) Nucleated RBC % Lymphocytes # (Manual) PT INR APTT POC ABG pCO2 POC ABG pO2 Sodium Potassium Chloride Carbon Dioxide BUN Creatinine Glucose POC Glucose Calcium Phosphorus Magnesium Troponin T 0.068 H NT-Pro-B Natriuret Pep 743.2 H Albumin LDL Cholesterol Direct 46 L HDL Cholesterol 18 L Urine WBC (Auto) 7.0 H 01/01/18 01/01/18 01/01/18 08:05 09:26 11:39 WBC RBC Hgb Hct MCH RDW Seg Neuts % (Manual) Monocytes % (Manual) Nucleated RBC % Lymphocytes # (Manual) PT INR APTT POC ABG pCO2 POC ABG pO2 Sodium 135 L Potassium 6.7 H* D Chloride 93.3 L Carbon Dioxide 10 L BUN 127 H Creatinine 9.4 H Glucose 185 H POC Glucose 185 H 207 H Calcium 7.3 L Phosphorus Magnesium Troponin T NT-Pro-B Natriuret Pep Albumin LDL Cholesterol Direct HDL Cholesterol Urine WBC (Auto) 01/01/18 01/01/18 01/01/18 17:38 18:00 21:32 WBC RBC Hgb Hct MCH RDW Seg Neuts % (Manual) Monocytes % (Manual) Nucleated RBC % Lymphocytes # (Manual) PT INR APTT POC ABG pCO2 POC ABG pO2 Sodium Potassium Chloride 96.5 L Carbon Dioxide BUN 69 H Creatinine 5.5 H Glucose 105 H POC Glucose 133 H 127 H Calcium 7.0 L Phosphorus Magnesium Troponin T NT-Pro-B Natriuret Pep Albumin LDL Cholesterol Direct HDL Cholesterol Urine WBC (Auto) 01/02/18 01/02/18 01/02/18 04:18 05:00 05:00 WBC 4.2 L RBC 2.86 L Hgb 7.9 L Hct 24.5 L MCH RDW 18.1 H Seg Neuts % (Manual) Monocytes % (Manual) Nucleated RBC % Lymphocytes # (Manual) 1.0 L PT INR APTT POC ABG pCO2 34.1 L POC ABG pO2 53 L Sodium Potassium 5.5 H D Chloride 96.2 L Carbon Dioxide 19 L BUN 80 H Creatinine 6.5 H Glucose 191 H POC Glucose Calcium 7.8 L Phosphorus 10.40 H Magnesium 1.50 L Troponin T NT-Pro-B Natriuret Pep Albumin LDL Cholesterol Direct HDL Cholesterol Urine WBC (Auto) 01/02/18 01/02/18 01/02/18 07:28 11:35 15:25 WBC RBC Hgb Hct MCH RDW Seg Neuts % (Manual) Monocytes % (Manual) Nucleated RBC % Lymphocytes # (Manual) PT INR APTT POC ABG pCO2 POC ABG pO2 Sodium Potassium Chloride Carbon Dioxide BUN Creatinine Glucose POC Glucose 210 H 209 H 180 H Calcium Phosphorus Magnesium Troponin T NT-Pro-B Natriuret Pep Albumin LDL Cholesterol Direct HDL Cholesterol Urine WBC (Auto) 01/02/18 01/03/18 01/03/18 20:19 05:20 11:31 WBC RBC Hgb Hct MCH RDW Seg Neuts % (Manual) Monocytes % (Manual) Nucleated RBC % Lymphocytes # (Manual) PT INR APTT POC ABG pCO2 POC ABG pO2 Sodium Potassium Chloride Carbon Dioxide BUN Creatinine Glucose POC Glucose 231 H 267 H 213 H Calcium Phosphorus Magnesium Troponin T NT-Pro-B Natriuret Pep Albumin LDL Cholesterol Direct HDL Cholesterol Urine WBC (Auto) 01/03/18 01/03/18 01/03/18 17:36 20:37 20:37 WBC 4.4 L RBC 5.20 H Hgb Hct 44.1 H D MCH 27 L RDW 17.7 H Seg Neuts % (Manual) 76.0 H Monocytes % (Manual) Nucleated RBC % 1.0 H Lymphocytes # (Manual) 0.8 L PT INR APTT POC ABG pCO2 POC ABG pO2 Sodium Potassium Chloride 90.1 L Carbon Dioxide BUN 32 H Creatinine 4.0 H Glucose 225 H POC Glucose 142 H Calcium Phosphorus Magnesium Troponin T NT-Pro-B Natriuret Pep Albumin LDL Cholesterol Direct HDL Cholesterol Urine WBC (Auto) 01/03/18 01/04/18 01/04/18 21:25 05:20 05:20 WBC RBC 3.13 L Hgb 8.7 L D Hct 26.2 L D MCH RDW 17.5 H Seg Neuts % (Manual) Monocytes % (Manual) 8.0 H Nucleated RBC % Lymphocytes # (Manual) PT INR APTT POC ABG pCO2 POC ABG pO2 Sodium Potassium Chloride 95.5 L Carbon Dioxide BUN 37 H Creatinine 4.8 H Glucose 128 H POC Glucose 215 H Calcium Phosphorus Magnesium Troponin T NT-Pro-B Natriuret Pep Albumin LDL Cholesterol Direct HDL Cholesterol Urine WBC (Auto) 01/04/18 01/04/18 01/04/18 06:51 10:55 16:20 WBC RBC Hgb Hct MCH RDW Seg Neuts % (Manual) Monocytes % (Manual) Nucleated RBC % Lymphocytes # (Manual) PT INR APTT POC ABG pCO2 POC ABG pO2 Sodium Potassium Chloride Carbon Dioxide BUN Creatinine Glucose POC Glucose 144 H 155 H 179 H Calcium Phosphorus Magnesium Troponin T NT-Pro-B Natriuret Pep Albumin LDL Cholesterol Direct HDL Cholesterol Urine WBC (Auto) 01/04/18 01/05/18 01/05/18 22:08 06:40 08:55 WBC RBC Hgb Hct MCH RDW Seg Neuts % (Manual) Monocytes % (Manual) Nucleated RBC % Lymphocytes # (Manual) PT INR APTT POC ABG pCO2 POC ABG pO2 Sodium Potassium Chloride 93.7 L Carbon Dioxide BUN 48 H Creatinine 5.2 H Glucose 130 H POC Glucose 188 H 147 H Calcium 8.3 L Phosphorus Magnesium Troponin T NT-Pro-B Natriuret Pep Albumin LDL Cholesterol Direct HDL Cholesterol Urine WBC (Auto) 01/05/18 01/05/18 01/06/18 16:49 21:09 05:46 WBC RBC Hgb Hct MCH RDW Seg Neuts % (Manual) Monocytes % (Manual) Nucleated RBC % Lymphocytes # (Manual) PT INR APTT POC ABG pCO2 POC ABG pO2 Sodium Potassium Chloride Carbon Dioxide BUN Creatinine Glucose POC Glucose 214 H 191 H 111 H Calcium Phosphorus Magnesium Troponin T NT-Pro-B Natriuret Pep Albumin LDL Cholesterol Direct HDL Cholesterol Urine WBC (Auto)
--- NOTE | 2018-01-06 12:51 | Progress Note ---
Assessment and Plan Assessment and plan: AMS, acute toxic encephalopathy - Likely due to opioid overdose - Resolved Acute renal failure - Nephrology is on board continue hemodialysis - Discussed with nephrology and said that patient may need outpatient hemodialysis Abdominal Pain, N/V - Patient was given Zofran and morphine for the pain - Resolved, his continue morphine and put her on Percocet Hyperkalemia - resolved Morbid obesity - We'll counselled her about weight loss, diet and exercise Volume overloadoverload - Resolving with hemodialysis DM with hyperglycemia - SSI DVT prophylaxis - heparin Disposition - Patient need outpatient dialysis chair. History Interval history: Patient was seen and evaluated this morning, patient was alert and oriented, patient's abdominal pain, nausea, and vomiting subsided. Hospitalist Physical - Physical exam Narrative exam: Not in cardiopulmonary distress. The patient is morbidly obese. Vital signs as documented. Head exam is unremarkable. No scleral icterus . Neck is without jugular venous distension, thyromegaly, or carotid bruits. Lungs are clear to auscultation. Cardiac exam reveals regular rate and Rhythm. First and second heart sounds normal. No murmurs, rubs or gallops. Abdominal exam reveals obese abdomen. Extremities are nonedematous and both femoral and pedal pulses are normal. 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 - Constitutional Vitals: Temp Pulse Resp BP Pulse Ox 98.6 F 104 H 20 103/61 98 01/06/18 08:31 01/06/18 10:02 01/06/18 08:31 01/06/18 08:31 01/06/18 08:31 Results - Labs CBC & Chem 7: 01/04/18 05:20 01/05/18 08:55 Labs: Laboratory Last Values WBC 8.9 K/mm3 (4.5-11.0) 01/04/18 05:20 RBC 3.13 M/mm3 (3.65-5.03) L 01/04/18 05:20 Hgb 8.7 gm/dl (10.1-14.3) L D 01/04/18 05:20 Hct 26.2 % (30.3-42.9) L D 01/04/18 05:20 MCV 84 fl (79-97) 01/04/18 05:20 MCH 28 pg (28-32) 01/04/18 05:20 MCHC 33 % (30-34) 01/04/18 05:20 RDW 17.5 % (13.2-15.2) H 01/04/18 05:20 Plt Count 257 K/mm3 (140-440) 01/04/18 05:20 Lymph % (Auto) Bottom Cager 01/02/18 05:00 [place] % (Auto) Bottom Cager 01/02/18 05:00 Eos % (Auto) Bottom Cager 01/02/18 05:00 Baso % (Auto) Bottom Cager 01/02/18 05:00 Lymph # Bottom Cager 01/02/18 05:00 [place] # Bottom Cager 01/02/18 05:00 Eos # Bottom Cager 01/02/18 05:00 Baso # Bottom Cager 01/02/18 05:00 Add Manual Diff Complete 01/04/18 05:20 Total Counted 100 01/04/18 05:20 Seg Neutrophils % Bottom Cager 01/02/18 05:00 Seg Neuts % (Manual) 69.0 % (40.0-70.0) 01/04/18 05:20 Band Neutrophils % 6.0 % 01/04/18 05:20 Lymphocytes % (Manual) 17.0 % (13.4-35.0) 01/04/18 05:20 Reactive Lymphs % (Man) 0 % 01/04/18 05:20 Monocytes % (Manual) 8.0 % (0.0-7.3) H 01/04/18 05:20 Eosinophils % (Manual) 0 % (0.0-4.3) 01/04/18 05:20 Basophils % (Manual) 0 % (0.0-1.8) 01/04/18 05:20 Metamyelocytes % 0 % 01/04/18 05:20 Myelocytes % 0 % 01/04/18 05:20 Promyelocytes % 0 % 01/04/18 05:20 Blast Cells % 0 % 01/04/18 05:20 Nucleated RBC % Not Reportable 01/04/18 05:20 Seg Neutrophils # Bottom Cager 01/02/18 05:00 Seg Neutrophils # Man 6.1 K/mm3 (1.8-7.7) 01/04/18 05:20 Band Neutrophils # 0.5 K/mm3 01/04/18 05:20 Lymphocytes # (Manual) 1.5 K/mm3 (1.2-5.4) 01/04/18 05:20 Abs React Lymphs (Man) 0.0 K/mm3 01/04/18 05:20 Monocytes # (Manual) 0.7 K/mm3 (0.0-0.8) 01/04/18 05:20 Eosinophils # (Manual) 0.0 K/mm3 (0.0-0.4) 01/04/18 05:20 Basophils # (Manual) 0.0 K/mm3 (0.0-0.1) 01/04/18 05:20 Metamyelocytes # 0.0 K/mm3 01/04/18 05:20 Myelocytes # 0.0 K/mm3 01/04/18 05:20 Promyelocytes # 0.0 K/mm3 01/04/18 05:20 Blast Cells # 0.0 K/mm3 01/04/18 05:20 WBC Morphology Not Reportable 01/04/18 05:20 Hypersegmented Neuts Not Reportable 01/04/18 05:20 Hyposegmented Neuts Not Reportable 01/04/18 05:20 Hypogranular Neuts Not Reportable 01/04/18 05:20 Smudge Cells Not Reportable 01/04/18 05:20 Toxic Granulation Not Reportable 01/04/18 05:20 Toxic Vacuolation Not Reportable 01/04/18 05:20 Dohle Bodies Not Reportable 01/04/18 05:20 Pelger-Huet Anomaly Not Reportable 01/04/18 05:20 Juliet Rods Not Reportable 01/04/18 05:20 Platelet Estimate Appears normal 01/04/18 05:20 Clumped Platelets Not Reportable 01/04/18 05:20 Plt Clumps, EDTA Not Reportable 01/04/18 05:20 Large Platelets Not Reportable 01/04/18 05:20 Giant Platelets Not Reportable 01/04/18 05:20 Platelet Satelliting Not Reportable 01/04/18 05:20 Plt Morphology Comment Not Reportable 01/04/18 05:20 RBC Morphology Not Reportable 01/04/18 05:20 Dimorphic RBCs Not Reportable 01/04/18 05:20 Polychromasia Not Reportable 01/04/18 05:20 Hypochromasia 1+ 01/04/18 05:20 Poikilocytosis Not Reportable 01/04/18 05:20 Anisocytosis 1+ 01/04/18 05:20 Microcytosis 1+ 01/04/18 05:20 Macrocytosis Not Reportable 01/04/18 05:20 Spherocytes Not Reportable 01/04/18 05:20 Pappenheimer Bodies Not Reportable 01/04/18 05:20 Sickle Cells Not Reportable 01/04/18 05:20 Target Cells Not Reportable 01/04/18 05:20 Tear Drop Cells Not Reportable 01/04/18 05:20 Ovalocytes Few 01/04/18 05:20 Stomatocytes 1+ 01/03/18 20:37 Helmet Cells Not Reportable 01/04/18 05:20 [place] Bodies Not Reportable 01/04/18 05:20 [place] Rings Not Reportable 01/04/18 05:20 Dion Cells Not Reportable 01/04/18 05:20 Bite Cells Not Reportable 01/04/18 05:20 Crenated Cell Not Reportable 01/04/18 05:20 Elliptocytes Not Reportable 01/04/18 05:20 Acanthocytes (Spur) Not Reportable 01/04/18 05:20 Rouleaux Not Reportable 01/04/18 05:20 Hemoglobin C Crystals Not Reportable 01/04/18 05:20 Schistocytes Not Reportable 01/04/18 05:20 Malaria parasites Not Reportable 01/04/18 05:20 Gume Bodies Not Reportable 01/04/18 05:20 Hem Pathologist Commnt No 01/04/18 05:20 PT 18.0 Sec. (12.2-14.9) H 01/01/18 07:48 INR 1.40 (0.87-1.13) H 01/01/18 07:48 APTT 39.8 Sec. (24.2-36.6) H 01/01/18 07:48 POC ABG pH 7.373 (7.35-7.45) 01/02/18 04:18 POC ABG pCO2 34.1 (35-45) L 01/02/18 04:18 POC ABG pO2 53 (80-105) L 01/02/18 04:18 POC ABG HCO3 19.8 01/02/18 04:18 POC ABG Total CO2 21 01/02/18 04:18 POC ABG O2 Sat 87 01/02/18 04:18 POC ABG Base Excess -5 01/02/18 04:18 FiO2 40 % 01/02/18 04:18 Sodium 137 mmol/L (137-145) 01/05/18 08:55 Potassium 4.1 mmol/L (3.6-5.0) 01/05/18 08:55 Chloride 93.7 mmol/L (98-107) L 01/05/18 08:55 Carbon Dioxide 25 mmol/L (22-30) 01/05/18 08:55 Anion Gap 22 mmol/L 01/05/18 08:55 BUN 48 mg/dL (7-17) H 01/05/18 08:55 Creatinine 5.2 mg/dL (0.7-1.2) H 01/05/18 08:55 Estimated GFR 11 ml/min 01/05/18 08:55 BUN/Creatinine Ratio 9 % 01/05/18 08:55 Glucose 130 mg/dL (65-100) H 01/05/18 08:55 POC Glucose 111 (70-105) H 01/06/18 05:46 Lactic Acid 1.30 mmol/L (0.7-2.0) 01/01/18 07:48 Calcium 8.3 mg/dL (8.4-10.2) L 01/05/18 08:55 Phosphorus 10.40 mg/dL (2.5-4.5) H 01/02/18 05:00 Magnesium 1.50 mg/dL (1.7-2.3) L 01/02/18 05:00 Total Bilirubin 0.30 mg/dL (0.1-1.2) 01/01/18 07:48 AST 7 units/L (5-40) 01/01/18 07:48 ALT 8 units/L (7-56) 01/01/18 07:48 Alkaline Phosphatase 127 units/L (35-129) 01/01/18 07:48 Ammonia 28.0 umol/L (25-60) 01/01/18 07:48 Troponin T 0.068 ng/mL (0.00-0.029) H 01/01/18 07:48 NT-Pro-B Natriuret Pep 743.2 pg/mL (0-450) H 01/01/18 07:48 Total Protein 7.4 g/dL (6.3-8.2) 01/01/18 07:48 Albumin 2.9 g/dL (3.9-5) L 01/01/18 07:48 Albumin/Globulin Ratio 0.6 % 01/01/18 07:48 Triglycerides 125 mg/dL (2-149) 01/01/18 07:48 Cholesterol 119 mg/dL (50-199) 01/01/18 07:48 LDL Cholesterol Direct 46 mg/dL (50-130) L 01/01/18 07:48 HDL Cholesterol 18 mg/dL (40-59) L 01/01/18 07:48 Cholesterol/HDL Ratio 6.61 % 01/01/18 07:48 HCG, Qual Negative (Negative) 01/01/18 08:11 Urine Color Yellow (Yellow) 01/01/18 08:00 Urine Turbidity Slightly-cloudy (Clear) 01/01/18 08:00 Urine pH 5.0 (5.0-7.0) 01/01/18 08:00 Ur Specific [place] 1.018 (1.003-1.030) 01/01/18 08:00 Urine Protein <15 mg/dl mg/dL (Negative) 01/01/18 08:00 Urine Glucose (UA) 50 mg/dL (Negative) 01/01/18 08:00 Urine Ketones Neg mg/dL (Negative) 01/01/18 08:00 Urine Blood Sm (Negative) 01/01/18 08:00 Urine Nitrite Neg (Negative) 01/01/18 08:00 Urine Bilirubin Neg (Negative) 01/01/18 08:00 Urine Urobilinogen < 2.0 mg/dL (<2.0) 01/01/18 08:00 Ur Leukocyte Esterase Tr (Negative) 01/01/18 08:00 Urine WBC (Auto) 7.0 /HPF (0.0-6.0) H 01/01/18 08:00 Urine RBC (Auto) 6.0 /HPF (0.0-6.0) 01/01/18 08:00 U Epithel Cells (Auto) < 1.0 /HPF (0-13.0) 01/01/18 08:00 Urine Bacteria (Auto) 1+ /HPF (Negative) 01/01/18 08:00 Urine Yeast (Budding) 1+ /HPF 01/01/18 08:00 Urine Opiates Screen Presumptive positive 01/01/18 08:00 Urine Methadone Screen Presumptive negative 01/01/18 08:00 Ur Barbiturates Screen Presumptive negative 01/01/18 08:00 Ur Phencyclidine Scrn Presumptive negative 01/01/18 08:00 Ur Amphetamines Screen Presumptive negative 01/01/18 08:00 U Benzodiazepines Scrn Presumptive negative 01/01/18 08:00 Urine Cocaine Screen Presumptive negative 01/01/18 08:00 U Marijuana (THC) Screen Presumptive negative 01/01/18 08:00 Drugs of Abuse Note Disclamer 01/01/18 08:00 Hep Bs Antigen Non-reactive (Negative) 01/02/18 05:00 Hepatitis C Antibody Non-reactive (NonReactive) 01/02/18 05:00
--- NOTE | 2018-01-06 14:08 | Progress Note ---
Assessment and Plan - Patient Problems (1) Acute kidney injury superimposed on chronic kidney disease Current Visit: Yes Status: Acute Plan to address problem: acute kidney injury superimposed on chronic disease vs progressive chronic kidney disease which is now end-stage renal disease. 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 awaiting permcath placement tentatively on Sunday (2) Metabolic acidosis Current Visit: Yes Status: Acute Plan to address problem: improving with HD (3) Hyperkalemia Current Visit: Yes Status: Acute Plan to address problem: improved with HD cont 2g K renal diet (4) Hyponatremia Current Visit: Yes Status: Acute Plan to address problem: Hypervolemic hyponatremia. Na improved with HD (5) Anemia Current Visit: Yes Status: Chronic Qualifiers: Chronic kidney disease stage: on chronic dialysis Plan to address problem: cont EPO with HD (6) Metabolic encephalopathy Current Visit: No Status: Acute Plan to address problem: Mental status improving with HD (7) Type 2 diabetes mellitus, uncontrolled Current Visit: No Status: Chronic Plan to address problem: Blood sugar management by primary attending Subjective Date of service: 01/06/18 Principal diagnosis: renal failure Interval history: pt awake, alert, in no acute respiratory distress. Objective - Vital Signs Vital signs: Vital Signs - 12hr 01/06/18 01/06/18 01/06/18 04:00 04:53 08:31 Temperature 98.2 F 98.6 F Pulse Rate 88 86 102 H Respiratory 18 20 Rate Blood Pressure 115/79 103/61 O2 Sat by Pulse 99 98 Oximetry 01/06/18 01/06/18 01/06/18 10:00 10:02 12:22 Temperature 98.8 F Pulse Rate 83 104 H 97 H Respiratory 20 Rate Blood Pressure 127/80 O2 Sat by Pulse 97 Oximetry - General Appearance General appearance: well-developed, well-nourished, appears stated age, obese EENT: ATNC, PERRL, mucous membranes moist Neck: no JVD Respiratory: Present: Clear to Ascultation Cardiology: regular, S1S2 Gastrointestinal: normoactive bowel sounds, obese Integumentary: no rash, other ( no edema ) Neurologic: no focal deficit, alert and oriented x3, strength 5/5, CN 3-12 intact Psychiatric: mood/affect appropriate, cooperative - Lab 01/04/18 05:20 01/05/18 08:55 Most recent lab results Calcium 8.3 mg/dL (8.4-10.2) L 01/05/18 08:55 Phosphorus 10.40 mg/dL (2.5-4.5) H 01/02/18 05:00 Magnesium 1.50 mg/dL (1.7-2.3) L 01/02/18 05:00
[2018-01-07] MEDS: PROVENTIL IH SCH ×3 (01:58→16:32)
[2018-01-07] MEDS: MORPHINE IV PRN ×4 (05:23→23:53)
[2018-01-07] MEDS: CLEOCIN 600 MG/50 mL 600 MG/50 ML BAG IV SCH ×3 (05:24→21:49)
[2018-01-07 06:19] LABS: Basophils % (Auto) 0.1 % (0.0-1.8); Eosinophils # (Auto) 0.2 K/mm3 (0.0-0.4); Eosinophils % (Auto) 1.4 % (0.0-4.3); Hematocrit 23.4 % (30.3-42.9); Hemoglobin 7.5 gm/dl (10.1-14.3); Lymphocytes # (Auto) 2.1 K/mm3 (1.2-5.4); Lymphocytes % (Auto) 17.8 % (13.4-35.0); Mean Corpuscular HGB Conc 32 % (30-34); Mean Corpuscular Hemoglobin 27 pg (28-32); Mean Corpuscular Volume 86 fl (79-97); Monocytes # (Auto) 0.6 K/mm3 (0.0-0.8); Monocytes % (Auto) 4.9 % (0.0-7.3); Platelet Count 193 K/mm3 (140-440); Red Blood Count 2.73 M/mm3 (3.65-5.03); Red Cell Distribution Width 17.1 % (13.2-15.2)
[2018-01-07 06:40] LABS: Calcium 8.7 mg/dL (8.4-10.2)
[2018-01-07] MEDS: HumaLOG SUB-Q SCH ×3 (08:05→19:26)
[2018-01-07] MEDS ORDERED: HEPARIN/NS 5000 UNIT/500ML(CATH LAB) 1,000 ML IR ONE (08:11)
[2018-01-07] MEDS ORDERED: XYLOCAINE 2% INFILTRATI ONE (08:12)
[2018-01-07] MEDS ORDERED: HEPARIN 10,000 UNITS/10 ML ONE (08:12)
[2018-01-07] MEDS ORDERED: NACL 0.9% 250ML 250 ML ONE (08:15)
[2018-01-07] MEDS: VERSED ONE ×2 (08:39→08:40)
[2018-01-07] MEDS: SUBLIMAZE ONE ×4 (08:39→09:01)
[2018-01-07] MEDS: NORVASC PO SCH (09:58)
[2018-01-07] MEDS: PEPCID PO SCH (09:58)
[2018-01-07] MEDS: HEPARIN SUB-Q SCH ×2 (10:00→21:48)
--- NOTE | 2018-01-07 10:01 | Operative Report ---
Operative Report Operative Report: Procedure: 1. Right internal jugular tunneled dialysis catheter placement 2. Right internal jugular vein temporary dialysis catheter removal Date: 01/07/2018 Physician: Slava Sanchez MD Indication: 42-year-old female with end stage renal disease, in need of dialysis. Technique: The patient was placed in the supine position and prepped and draped in the usual sterile fashion. A timeout was performed. Local anesthetic was administered. The pre-existing temporary dialysis catheter was removed over an 035 wire, which was advanced into the IVC. Attention was then turned to the right chest wall. An appropriate catheter exit site was chosen, and local anesthetic was again administered. A skin kris was made, and the catheter was tunneled under the skin from the exit site to the venotomy. After serial tissue dilation, the dialysis catheter was advanced through a peel- away sheath, until the tip was in the right atrium. Vacuum aspiration and flushing was performed. Each lumen was instilled with heparin. The catheter was secured to the skin with 2-0 Ethilon suture. The venotomy site was closed with 4-0 Monocryl , sterile dressings were placed, and the patient was transported from the procedure area in stable condition. Findings: 1. There is successful exchange of a temporary dialysis catheter to a turnneled MedComp 23cm dialysis catheter via the right internal jugular vein. 2. Each lumen flushes and aspirates briskly. 3. Positioning of the catheter tip within the right atrium is confirmed by fluoroscopy. The catheter is ready for use.
--- NOTE | 2018-01-07 11:30 | Progress Note ---
Assessment and Plan - Patient Problems (1) Acute kidney injury superimposed on chronic kidney disease Current Visit: Yes Status: Acute Plan to address problem: acute kidney injury superimposed on chronic disease vs progressive chronic kidney disease which is now end-stage renal disease. 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 s/p permcath placement. stable for discharge once outpatient HD arranged (2) Metabolic acidosis Current Visit: Yes Status: Acute Plan to address problem: improving with HD (3) Hyperkalemia Current Visit: Yes Status: Acute Plan to address problem: improved with HD cont 2g K renal diet (4) Hyponatremia Current Visit: Yes Status: Acute Plan to address problem: Hypervolemic hyponatremia. Na improved with HD (5) Anemia Current Visit: Yes Status: Chronic Qualifiers: Chronic kidney disease stage: on chronic dialysis Plan to address problem: cont EPO with HD (6) Metabolic encephalopathy Current Visit: No Status: Acute Plan to address problem: Mental status improving with HD (7) Type 2 diabetes mellitus, uncontrolled Current Visit: No Status: Chronic Plan to address problem: Blood sugar management by primary attending Subjective Date of service: 01/07/18 Principal diagnosis: renal failure Interval history: pt awake, alert, in no acute respiratory distress. s/p permcath placement Objective - Vital Signs Vital signs: Vital Signs - 12hr 01/07/18 01/07/18 01/07/18 00:03 02:00 04:48 Temperature 97.5 F L 98.3 F Pulse Rate 88 82 Pulse Rate [ 16 L Throughout] Respiratory 20 18 Rate Respiratory 87 H Rate [ Throughout] Blood Pressure 106/63 145/86 O2 Sat by Pulse 100 100 Oximetry 01/07/18 01/07/18 05:23 09:58 Temperature Pulse Rate Pulse Rate [ Throughout] Respiratory 18 Rate Respiratory Rate [ Throughout] Blood Pressure 122/82 O2 Sat by Pulse Oximetry - General Appearance General appearance: well-developed, well-nourished, appears stated age EENT: ATNC, PERRL, mucous membranes moist Neck: no JVD Respiratory: Present: Clear to Ascultation Cardiology: regular, S1S2 Gastrointestinal: normoactive bowel sounds, obese Integumentary: no rash, other (no edema ) Neurologic: no focal deficit, alert and oriented x3, strength 5/5, CN 3-12 intact Psychiatric: mood/affect appropriate, cooperative - Lab 01/07/18 05:33 01/07/18 05:33 Most recent lab results Calcium 8.7 mg/dL (8.4-10.2) 01/07/18 05:33 Phosphorus 10.40 mg/dL (2.5-4.5) H 01/02/18 05:00 Magnesium 1.50 mg/dL (1.7-2.3) L 01/02/18 05:00
--- NOTE | 2018-01-07 14:08 | Progress Note ---
Assessment and Plan Assessment and plan: AMS, acute toxic encephalopathy - Likely due to opioid overdose - Resolved Acute respiratory failure - Resolved - patient was intubated and extubated on the next day Acute renal failure - Nephrology is on board continue hemodialysis - Discussed with nephrology and said that patient may need outpatient hemodialysis Abdominal Pain, N/V - Patient was given Zofran and morphine for the pain - Resolved, his continue morphine and put her on Percocet Hyperkalemia - resolved Morbid obesity - We'll counselled her about weight loss, diet and exercise Volume overloadoverload - Resolving with hemodialysis DM with hyperglycemia - SSI DVT prophylaxis - heparin Disposition - Patient need outpatient dialysis chair. History Interval history: Patient was seen and evaluated this morning, patient was alert and oriented, patient complains abdominal pain, nausea, and vomiting. Hospitalist Physical - Physical exam Narrative exam: Not in cardiopulmonary distress. The patient is morbidly obese. Vital signs as documented. Head exam is unremarkable. No scleral icterus . Neck is without jugular venous distension, thyromegaly, or carotid bruits. Lungs are clear to auscultation. Cardiac exam reveals regular rate and Rhythm. First and second heart sounds normal. No murmurs, rubs or gallops. Abdominal exam reveals obese abdomen. Extremities are nonedematous and both femoral and pedal pulses are normal. STUDENT SERVICES REPRESENTATIVE: Alert and oriented. - Constitutional Vitals: Temp Pulse Resp BP Pulse Ox 97.9 F 85 18 135/81 100 01/07/18 13:11 01/07/18 13:11 01/07/18 13:11 01/07/18 13:11 01/07/18 13:11 Results - Labs CBC & Chem 7: 01/07/18 05:33 01/07/18 05:33 Labs: Laboratory Last Values WBC 11.9 K/mm3 (4.5-11.0) H 01/07/18 05:33 RBC 2.73 M/mm3 (3.65-5.03) L 01/07/18 05:33 Hgb 7.5 gm/dl (10.1-14.3) L 01/07/18 05:33 Hct 23.4 % (30.3-42.9) L 01/07/18 05:33 MCV 86 fl (79-97) 01/07/18 05:33 MCH 27 pg (28-32) L 01/07/18 05:33 MCHC 32 % (30-34) 01/07/18 05:33 RDW 17.1 % (13.2-15.2) H 01/07/18 05:33 Plt Count 193 K/mm3 (140-440) 01/07/18 05:33 Lymph % (Auto) 17.8 % (13.4-35.0) 01/07/18 05:33 [place] % (Auto) 4.9 % (0.0-7.3) 01/07/18 05:33 Eos % (Auto) 1.4 % (0.0-4.3) 01/07/18 05:33 Baso % (Auto) 0.1 % (0.0-1.8) 01/07/18 05:33 Lymph # 2.1 K/mm3 (1.2-5.4) 01/07/18 05:33 [place] # 0.6 K/mm3 (0.0-0.8) 01/07/18 05:33 Eos # 0.2 K/mm3 (0.0-0.4) 01/07/18 05:33 Baso # 0.0 K/mm3 (0.0-0.1) 01/07/18 05:33 Add Manual Diff Complete 01/04/18 05:20 Total Counted 100 01/04/18 05:20 Seg Neutrophils % 75.8 % (40.0-70.0) H 01/07/18 05:33 Seg Neuts % (Manual) 69.0 % (40.0-70.0) 01/04/18 05:20 Band Neutrophils % 6.0 % 01/04/18 05:20 Lymphocytes % (Manual) 17.0 % (13.4-35.0) 01/04/18 05:20 Reactive Lymphs % (Man) 0 % 01/04/18 05:20 Monocytes % (Manual) 8.0 % (0.0-7.3) H 01/04/18 05:20 Eosinophils % (Manual) 0 % (0.0-4.3) 01/04/18 05:20 Basophils % (Manual) 0 % (0.0-1.8) 01/04/18 05:20 Metamyelocytes % 0 % 01/04/18 05:20 Myelocytes % 0 % 01/04/18 05:20 Promyelocytes % 0 % 01/04/18 05:20 Blast Cells % 0 % 01/04/18 05:20 Nucleated RBC % Not Reportable 01/04/18 05:20 Seg Neutrophils # 9.0 K/mm3 (1.8-7.7) H 01/07/18 05:33 Seg Neutrophils # Man 6.1 K/mm3 (1.8-7.7) 01/04/18 05:20 Band Neutrophils # 0.5 K/mm3 01/04/18 05:20 Lymphocytes # (Manual) 1.5 K/mm3 (1.2-5.4) 01/04/18 05:20 Abs React Lymphs (Man) 0.0 K/mm3 01/04/18 05:20 Monocytes # (Manual) 0.7 K/mm3 (0.0-0.8) 01/04/18 05:20 Eosinophils # (Manual) 0.0 K/mm3 (0.0-0.4) 01/04/18 05:20 Basophils # (Manual) 0.0 K/mm3 (0.0-0.1) 01/04/18 05:20 Metamyelocytes # 0.0 K/mm3 01/04/18 05:20 Myelocytes # 0.0 K/mm3 01/04/18 05:20 Promyelocytes # 0.0 K/mm3 01/04/18 05:20 Blast Cells # 0.0 K/mm3 01/04/18 05:20 WBC Morphology Not Reportable 01/04/18 05:20 Hypersegmented Neuts Not Reportable 01/04/18 05:20 Hyposegmented Neuts Not Reportable 01/04/18 05:20 Hypogranular Neuts Not Reportable 01/04/18 05:20 Smudge Cells Not Reportable 01/04/18 05:20 Toxic Granulation Not Reportable 01/04/18 05:20 Toxic Vacuolation Not Reportable 01/04/18 05:20 Dohle Bodies Not Reportable 01/04/18 05:20 Pelger-Huet Anomaly Not Reportable 01/04/18 05:20 Juliet Rods Not Reportable 01/04/18 05:20 Platelet Estimate Appears normal 01/04/18 05:20 Clumped Platelets Not Reportable 01/04/18 05:20 Plt Clumps, EDTA Not Reportable 01/04/18 05:20 Large Platelets Not Reportable 01/04/18 05:20 Giant Platelets Not Reportable 01/04/18 05:20 Platelet Satelliting Not Reportable 01/04/18 05:20 Plt Morphology Comment Not Reportable 01/04/18 05:20 RBC Morphology Not Reportable 01/04/18 05:20 Dimorphic RBCs Not Reportable 01/04/18 05:20 Polychromasia Not Reportable 01/04/18 05:20 Hypochromasia 1+ 01/04/18 05:20 Poikilocytosis Not Reportable 01/04/18 05:20 Anisocytosis 1+ 01/04/18 05:20 Microcytosis 1+ 01/04/18 05:20 Macrocytosis Not Reportable 01/04/18 05:20 Spherocytes Not Reportable 01/04/18 05:20 Pappenheimer Bodies Not Reportable 01/04/18 05:20 Sickle Cells Not Reportable 01/04/18 05:20 Target Cells Not Reportable 01/04/18 05:20 Tear Drop Cells Not Reportable 01/04/18 05:20 Ovalocytes Few 01/04/18 05:20 Stomatocytes 1+ 01/03/18 20:37 Helmet Cells Not Reportable 01/04/18 05:20 [place] Bodies Not Reportable 01/04/18 05:20 [place]ello Rings Not Reportable 01/04/18 05:20 [place] Cells Not Reportable 01/04/18 05:20 Bite Cells Not Reportable 01/04/18 05:20 Crenated Cell Not Reportable 01/04/18 05:20 Elliptocytes Not Reportable 01/04/18 05:20 Acanthocytes (Spur) Not Reportable 01/04/18 05:20 Rouleaux Not Reportable 01/04/18 05:20 Hemoglobin C Crystals Not Reportable 01/04/18 05:20 Schistocytes Not Reportable 01/04/18 05:20 Malaria parasites Not Reportable 01/04/18 05:20 Gume Bodies Not Reportable 01/04/18 05:20 Hem Pathologist Commnt No 01/04/18 05:20 PT 18.0 Sec. (12.2-14.9) H 01/01/18 07:48 INR 1.40 (0.87-1.13) H 01/01/18 07:48 APTT 39.8 Sec. (24.2-36.6) H 01/01/18 07:48 POC ABG pH 7.373 (7.35-7.45) 01/02/18 04:18 POC ABG pCO2 34.1 (35-45) L 01/02/18 04:18 POC ABG pO2 53 (80-105) L 01/02/18 04:18 POC ABG HCO3 19.8 01/02/18 04:18 POC ABG Total CO2 21 01/02/18 04:18 POC ABG O2 Sat 87 01/02/18 04:18 POC ABG Base Excess -5 01/02/18 04:18 FiO2 40 % 01/02/18 04:18 Sodium 136 mmol/L (137-145) L 01/07/18 05:33 Potassium 3.6 mmol/L (3.6-5.0) 01/07/18 05:33 Chloride 93.0 mmol/L (98-107) L 01/07/18 05:33 Carbon Dioxide 25 mmol/L (22-30) 01/07/18 05:33 Anion Gap 22 mmol/L 01/07/18 05:33 BUN 35 mg/dL (7-17) H 01/07/18 05:33 Creatinine 4.5 mg/dL (0.7-1.2) H 01/07/18 05:33 Estimated GFR 13 ml/min 01/07/18 05:33 BUN/Creatinine Ratio 8 % 01/07/18 05:33 Glucose 146 mg/dL (65-100) H 01/07/18 05:33 POC Glucose 210 (70-105) H 01/07/18 12:14 Lactic Acid 1.30 mmol/L (0.7-2.0) 01/01/18 07:48 Calcium 8.7 mg/dL (8.4-10.2) 01/07/18 05:33 Phosphorus 10.40 mg/dL (2.5-4.5) H 01/02/18 05:00 Magnesium 1.50 mg/dL (1.7-2.3) L 01/02/18 05:00 Total Bilirubin 0.30 mg/dL (0.1-1.2) 01/01/18 07:48 AST 7 units/L (5-40) 01/01/18 07:48 ALT 8 units/L (7-56) 01/01/18 07:48 Alkaline Phosphatase 127 units/L (35-129) 01/01/18 07:48 Ammonia 28.0 umol/L (25-60) 01/01/18 07:48 Troponin T 0.068 ng/mL (0.00-0.029) H 01/01/18 07:48 NT-Pro-B Natriuret Pep 743.2 pg/mL (0-450) H 01/01/18 07:48 Total Protein 7.4 g/dL (6.3-8.2) 01/01/18 07:48 Albumin 2.9 g/dL (3.9-5) L 01/01/18 07:48 Albumin/Globulin Ratio 0.6 % 01/01/18 07:48 Triglycerides 125 mg/dL (2-149) 01/01/18 07:48 Cholesterol 119 mg/dL (50-199) 01/01/18 07:48 LDL Cholesterol Direct 46 mg/dL (50-130) L 01/01/18 07:48 HDL Cholesterol 18 mg/dL (40-59) L 01/01/18 07:48 Cholesterol/HDL Ratio 6.61 % 01/01/18 07:48 HCG, Qual Negative (Negative) 01/01/18 08:11 Urine Color Yellow (Yellow) 01/01/18 08:00 Urine Turbidity Slightly-cloudy (Clear) 01/01/18 08:00 Urine pH 5.0 (5.0-7.0) 01/01/18 08:00 Ur Specific [place] 1.018 (1.003-1.030) 01/01/18 08:00 Urine Protein <15 mg/dl mg/dL (Negative) 01/01/18 08:00 Urine Glucose (UA) 50 mg/dL (Negative) 01/01/18 08:00 Urine Ketones Neg mg/dL (Negative) 01/01/18 08:00 Urine Blood Sm (Negative) 01/01/18 08:00 Urine Nitrite Neg (Negative) 01/01/18 08:00 Urine Bilirubin Neg (Negative) 01/01/18 08:00 Urine Urobilinogen < 2.0 mg/dL (<2.0) 01/01/18 08:00 Ur Leukocyte Esterase Tr (Negative) 01/01/18 08:00 Urine WBC (Auto) 7.0 /HPF (0.0-6.0) H 01/01/18 08:00 Urine RBC (Auto) 6.0 /HPF (0.0-6.0) 01/01/18 08:00 U Epithel Cells (Auto) < 1.0 /HPF (0-13.0) 01/01/18 08:00 Urine Bacteria (Auto) 1+ /HPF (Negative) 01/01/18 08:00 Urine Yeast (Budding) 1+ /HPF 01/01/18 08:00 Urine Opiates Screen Presumptive positive 01/01/18 08:00 Urine Methadone Screen Presumptive negative 01/01/18 08:00 Ur Barbiturates Screen Presumptive negative 01/01/18 08:00 Ur Phencyclidine Scrn Presumptive negative 01/01/18 08:00 Ur Amphetamines Screen Presumptive negative 01/01/18 08:00 U Benzodiazepines Scrn Presumptive negative 01/01/18 08:00 Urine Cocaine Screen Presumptive negative 01/01/18 08:00 U Marijuana (THC) Screen Presumptive negative 01/01/18 08:00 Drugs of Abuse Note Disclamer 01/01/18 08:00 Hep Bs Antigen Non-reactive (Negative) 01/02/18 05:00 Hepatitis C Antibody Non-reactive (NonReactive) 01/02/18 05:00
--- NOTE | 2018-01-07 20:15 | Progress Note ---
Assessment and Plan Imp: 1. VIVI 2. Hyperkalemia 3. Acute/chronic diastolic CHF 4. Acute respiratory failure, hypoxia 5. Morbid obesity 6. Probable RISSA Rec: 1. BP and volume optimization, per renal 2. Weight loss 3. Should have outpatient sleep study; recommend f/u w/ us 1-2 weeks 4. Doing well on RA; can go home pulmonary-zuniga; will sign off but please call w / questions/new issues Plan of care reviewed with patient, she understands/agrees Subjective Date of service: 01/07/18 Principal diagnosis: renal failure Interval history: No events. Awake, alert. On RA. No complaints. Active Medications Albuterol (Proventil) 2.5 mg IH Q6HRT [facility] Last Admin: 01/07/18 16:32 Dose: Not Given Amlodipine Besylate (Norvasc) 5 mg PO QDAY [facility] Last Admin: 01/07/18 09:58 Dose: 5 mg Dextrose (D50w (25gm) Syringe) 50 ml IV PRN PRN PRN Reason: Hypoglycemia Last Admin: 01/06/18 22:39 Dose: 50 ml Epoetin [place] (Procrit) 10,000 unit IV KIT PRN PRN Reason: hemodialysis Last Admin: 01/05/18 17:12 Dose: 10,000 unit Famotidine (Pepcid) 20 mg PO DAILY [facility] Last Admin: 01/07/18 09:58 Dose: 20 mg Heparin Sodium (Porcine) (Heparin) 5,000 unit IV KIT PRN PRN Reason: hemodialysis Last Admin: 01/05/18 17:13 Dose: 5,000 unit Heparin Sodium (Porcine) (Heparin) 5,000 unit SUB-Q Q12HR [facility] Last Admin: 01/07/18 10:00 Dose: Not Given Sodium Chloride (Nacl 0.9%) 100 mls @ 999 mls/hr IV KIT PRN PRN Reason: Hypotension Clindamycin HCl (Cleocin 600 Mg/50 Ml) 600 mg in 50 mls @ 100 mls/hr IV Q8H [facility] ; Protocol Stop: 01/08/18 19:59 Last Admin: 01/07/18 15:29 Dose: 100 mls/hr Insulin Human Lispro (Humalog) 0 unit SUB-Q ACHS [facility]; Protocol Last Admin: 01/07/18 19:26 Dose: 8 unit Morphine Sulfate (Morphine) 2 mg IV Q4H PRN PRN Reason: Pain , MODERATE (4-6) Last Admin: 01/07/18 19:27 Dose: 2 mg Ondansetron HCl (Zofran) 4 mg IV Q4H PRN PRN Reason: Nausea And Vomiting Last Admin: 01/06/18 10:19 Dose: 4 mg Oxycodone HCl (Roxicodone) 2.5 mg PO Q4H PRN PRN Reason: Pain, Moderate (4-6) Last Admin: 01/05/18 23:21 Dose: 2.5 mg Oxycodone/Acetaminophen (Percocet 5/325) 1 tab PO Q6H PRN PRN Reason: Pain, Moderate (4-6) Last Admin: 01/06/18 05:58 Dose: 1 tab Objective Vital Signs - 12hr 01/07/18 01/07/18 01/07/18 09:58 12:04 12:38 Temperature Pulse Rate 80 82 Respiratory Rate Blood Pressure 122/82 Blood Pressure [Right] O2 Sat by Pulse 96 Oximetry 01/07/18 01/07/18 01/07/18 13:11 16:36 18:19 Temperature 97.9 F 98.0 F 98.8 F Pulse Rate 85 95 H 94 H Respiratory 18 20 18 Rate Blood Pressure 108/74 Blood Pressure 135/81 108/74 [Right] O2 Sat by Pulse 100 99 98 Oximetry Constitutional: no acute distress, alert Eyes: non-icteric ENT: oropharynx moist Neck: supple Ascultation: Bilateral: clear Cardiovascular: regular rate and rhythm (no mrg) Gastrointestinal: normoactive bowel sounds, soft, non-tender, non-distended Extremities: no cyanosis, no edema Neurologic: normal mental status, non-focal exam, pupils equal and round, CN II- XII normal, motor strength normal and Psychiatric: mood appropriate, affect normal CBC and BMP: 01/07/18 05:33 01/07/18 05:33 ABG, PT/INR, D-dimer: ABG POC ABG pH 7.373 (7.35-7.45) 01/02/18 04:18 POC ABG pCO2 34.1 (35-45) L 01/02/18 04:18 POC ABG pO2 53 (80-105) L 01/02/18 04:18 POC ABG HCO3 19.8 01/02/18 04:18 POC ABG Total CO2 21 01/02/18 04:18 POC ABG O2 Sat 87 01/02/18 04:18 PT/INR, D-dimer PT 18.0 Sec. (12.2-14.9) H 01/01/18 07:48 INR 1.40 (0.87-1.13) H 01/01/18 07:48 Abnormal lab findings: Abnormal Labs 01/01/18 01/01/18 01/01/18 07:48 07:48 07:48 WBC 4.3 L RBC 3.33 L Hgb 9.2 L Hct 28.5 L MCH RDW 17.7 H Seg Neutrophils % Seg Neuts % (Manual) Monocytes % (Manual) 17 H Nucleated RBC % Seg Neutrophils # Lymphocytes # (Manual) 0.8 L PT 18.0 H INR 1.40 H APTT 39.8 H POC ABG pCO2 POC ABG pO2 Sodium 131 L Potassium 8.6 H* Chloride 90.8 L Carbon Dioxide 12 L BUN 127 H Creatinine 9.6 H Glucose 189 H POC Glucose Calcium 7.4 L Phosphorus Magnesium Troponin T NT-Pro-B Natriuret Pep Albumin 2.9 L LDL Cholesterol Direct HDL Cholesterol Urine WBC (Auto) 01/01/18 01/01/18 01/01/18 07:48 07:48 08:00 WBC RBC Hgb Hct MCH RDW Seg Neutrophils % Seg Neuts % (Manual) Monocytes % (Manual) Nucleated RBC % Seg Neutrophils # Lymphocytes # (Manual) PT INR APTT POC ABG pCO2 POC ABG pO2 Sodium Potassium Chloride Carbon Dioxide BUN Creatinine Glucose POC Glucose Calcium Phosphorus Magnesium Troponin T 0.068 H NT-Pro-B Natriuret Pep 743.2 H Albumin LDL Cholesterol Direct 46 L HDL Cholesterol 18 L Urine WBC (Auto) 7.0 H 01/01/18 01/01/18 01/01/18 08:05 09:26 11:39 WBC RBC Hgb Hct MCH RDW Seg Neutrophils % Seg Neuts % (Manual) Monocytes % (Manual) Nucleated RBC % Seg Neutrophils # Lymphocytes # (Manual) PT INR APTT POC ABG pCO2 POC ABG pO2 Sodium 135 L Potassium 6.7 H* D Chloride 93.3 L Carbon Dioxide 10 L BUN 127 H Creatinine 9.4 H Glucose 185 H POC Glucose 185 H 207 H Calcium 7.3 L Phosphorus Magnesium Troponin T NT-Pro-B Natriuret Pep Albumin LDL Cholesterol Direct HDL Cholesterol Urine WBC (Auto) 01/01/18 01/01/18 01/01/18 17:38 18:00 21:32 WBC RBC Hgb Hct MCH RDW Seg Neutrophils % Seg Neuts % (Manual) Monocytes % (Manual) Nucleated RBC % Seg Neutrophils # Lymphocytes # (Manual) PT INR APTT POC ABG pCO2 POC ABG pO2 Sodium Potassium Chloride 96.5 L Carbon Dioxide BUN 69 H Creatinine 5.5 H Glucose 105 H POC Glucose 133 H 127 H Calcium 7.0 L Phosphorus Magnesium Troponin T NT-Pro-B Natriuret Pep Albumin LDL Cholesterol Direct HDL Cholesterol Urine WBC (Auto) 01/02/18 01/02/18 01/02/18 04:18 05:00 05:00 WBC 4.2 L RBC 2.86 L Hgb 7.9 L Hct 24.5 L MCH RDW 18.1 H Seg Neutrophils % Seg Neuts % (Manual) Monocytes % (Manual) Nucleated RBC % Seg Neutrophils # Lymphocytes # (Manual) 1.0 L PT INR APTT POC ABG pCO2 34.1 L POC ABG pO2 53 L Sodium Potassium 5.5 H D Chloride 96.2 L Carbon Dioxide 19 L BUN 80 H Creatinine 6.5 H Glucose 191 H POC Glucose Calcium 7.8 L Phosphorus 10.40 H Magnesium 1.50 L Troponin T NT-Pro-B Natriuret Pep Albumin LDL Cholesterol Direct HDL Cholesterol Urine WBC (Auto) 01/02/18 01/02/18 01/02/18 07:28 11:35 15:25 WBC RBC Hgb Hct MCH RDW Seg Neutrophils % Seg Neuts % (Manual) Monocytes % (Manual) Nucleated RBC % Seg Neutrophils # Lymphocytes # (Manual) PT INR APTT POC ABG pCO2 POC ABG pO2 Sodium Potassium Chloride Carbon Dioxide BUN Creatinine Glucose POC Glucose 210 H 209 H 180 H Calcium Phosphorus Magnesium Troponin T NT-Pro-B Natriuret Pep Albumin LDL Cholesterol Direct HDL Cholesterol Urine WBC (Auto) 01/02/18 01/03/18 01/03/18 20:19 05:20 11:31 WBC RBC Hgb Hct MCH RDW Seg Neutrophils % Seg Neuts % (Manual) Monocytes % (Manual) Nucleated RBC % Seg Neutrophils # Lymphocytes # (Manual) PT INR APTT POC ABG pCO2 POC ABG pO2 Sodium Potassium Chloride Carbon Dioxide BUN Creatinine Glucose POC Glucose 231 H 267 H 213 H Calcium Phosphorus Magnesium Troponin T NT-Pro-B Natriuret Pep Albumin LDL Cholesterol Direct HDL Cholesterol Urine WBC (Auto) 01/03/18 01/03/18 01/03/18 17:36 20:37 20:37 WBC 4.4 L RBC 5.20 H Hgb Hct 44.1 H D MCH 27 L RDW 17.7 H Seg Neutrophils % Seg Neuts % (Manual) 76.0 H Monocytes % (Manual) Nucleated RBC % 1.0 H Seg Neutrophils # Lymphocytes # (Manual) 0.8 L PT INR APTT POC ABG pCO2 POC ABG pO2 Sodium Potassium Chloride 90.1 L Carbon Dioxide BUN 32 H Creatinine 4.0 H Glucose 225 H POC Glucose 142 H Calcium Phosphorus Magnesium Troponin T NT-Pro-B Natriuret Pep Albumin LDL Cholesterol Direct HDL Cholesterol Urine WBC (Auto) 01/03/18 01/04/18 01/04/18 21:25 05:20 05:20 WBC RBC 3.13 L Hgb 8.7 L D Hct 26.2 L D MCH RDW 17.5 H Seg Neutrophils % Seg Neuts % (Manual) Monocytes % (Manual) 8.0 H Nucleated RBC % Seg Neutrophils # Lymphocytes # (Manual) PT INR APTT POC ABG pCO2 POC ABG pO2 Sodium Potassium Chloride 95.5 L Carbon Dioxide BUN 37 H Creatinine 4.8 H Glucose 128 H POC Glucose 215 H Calcium Phosphorus Magnesium Troponin T NT-Pro-B Natriuret Pep Albumin LDL Cholesterol Direct HDL Cholesterol Urine WBC (Auto) 01/04/18 01/04/18 01/04/18 06:51 10:55 16:20 WBC RBC Hgb Hct MCH RDW Seg Neutrophils % Seg Neuts % (Manual) Monocytes % (Manual) Nucleated RBC % Seg Neutrophils # Lymphocytes # (Manual) PT INR APTT POC ABG pCO2 POC ABG pO2 Sodium Potassium Chloride Carbon Dioxide BUN Creatinine Glucose POC Glucose 144 H 155 H 179 H Calcium Phosphorus Magnesium Troponin T NT-Pro-B Natriuret Pep Albumin LDL Cholesterol Direct HDL Cholesterol Urine WBC (Auto) 01/04/18 01/05/18 01/05/18 22:08 06:40 08:55 WBC RBC Hgb Hct MCH RDW Seg Neutrophils % Seg Neuts % (Manual) Monocytes % (Manual) Nucleated RBC % Seg Neutrophils # Lymphocytes # (Manual) PT INR APTT POC ABG pCO2 POC ABG pO2 Sodium Potassium Chloride 93.7 L Carbon Dioxide BUN 48 H Creatinine 5.2 H Glucose 130 H POC Glucose 188 H 147 H Calcium 8.3 L Phosphorus Magnesium Troponin T NT-Pro-B Natriuret Pep Albumin LDL Cholesterol Direct HDL Cholesterol Urine WBC (Auto) 01/05/18 01/05/18 01/06/18 16:49 21:09 05:46 WBC RBC Hgb Hct MCH RDW Seg Neutrophils % Seg Neuts % (Manual) Monocytes % (Manual) Nucleated RBC % Seg Neutrophils # Lymphocytes # (Manual) PT INR APTT POC ABG pCO2 POC ABG pO2 Sodium Potassium Chloride Carbon Dioxide BUN Creatinine Glucose POC Glucose 214 H 191 H 111 H Calcium Phosphorus Magnesium Troponin T NT-Pro-B Natriuret Pep Albumin LDL Cholesterol Direct HDL Cholesterol Urine WBC (Auto) 01/06/18 01/06/18 01/06/18 12:32 16:41 21:19 WBC RBC Hgb Hct MCH RDW Seg Neutrophils % Seg Neuts % (Manual) Monocytes % (Manual) Nucleated RBC % Seg Neutrophils # Lymphocytes # (Manual) PT INR APTT POC ABG pCO2 POC ABG pO2 Sodium Potassium Chloride Carbon Dioxide BUN Creatinine Glucose POC Glucose 186 H 217 H 46 L Calcium Phosphorus Magnesium Troponin T NT-Pro-B Natriuret Pep Albumin LDL Cholesterol Direct HDL Cholesterol Urine WBC (Auto) 01/06/18 01/07/18 01/07/18 23:42 05:33 05:33 WBC 11.9 H RBC 2.73 L Hgb 7.5 L Hct 23.4 L MCH 27 L RDW 17.1 H Seg Neutrophils % 75.8 H Seg Neuts % (Manual) Monocytes % (Manual) Nucleated RBC % Seg Neutrophils # 9.0 H Lymphocytes # (Manual) PT INR APTT POC ABG pCO2 POC ABG pO2 Sodium 136 L Potassium Chloride 93.0 L Carbon Dioxide BUN 35 H Creatinine 4.5 H Glucose 146 H POC Glucose 175 H Calcium Phosphorus Magnesium Troponin T NT-Pro-B Natriuret Pep Albumin LDL Cholesterol Direct HDL Cholesterol Urine WBC (Auto) 01/07/18 01/07/18 01/07/18 06:25 12:14 16:45 WBC RBC Hgb Hct MCH RDW Seg Neutrophils % Seg Neuts % (Manual) Monocytes % (Manual) Nucleated RBC % Seg Neutrophils # Lymphocytes # (Manual) PT INR APTT POC ABG pCO2 POC ABG pO2 Sodium Potassium Chloride Carbon Dioxide BUN Creatinine Glucose POC Glucose 161 H 210 H 329 H Calcium Phosphorus Magnesium Troponin T NT-Pro-B Natriuret Pep Albumin LDL Cholesterol Direct HDL Cholesterol Urine WBC (Auto) Chest x-ray: report reviewed, image reviewed
[2018-01-08] MEDS: HumaLOG SUB-Q SCH ×3 (04:45→12:18)
[2018-01-08] MEDS: MORPHINE IV PRN ×3 (04:51→14:41)
[2018-01-08] MEDS: CLEOCIN 600 MG/50 mL 600 MG/50 ML BAG IV SCH ×2 (04:52→14:43)
[2018-01-08] MEDS: HEPARIN SUB-Q SCH (10:27)
[2018-01-08] MEDS: PEPCID PO SCH (10:30)
[2018-01-08] MEDS: NORVASC PO SCH (10:30)
--- NOTE | 2018-01-08 11:21 | Progress Note ---
Assessment and Plan - Patient Problems (1) Acute kidney injury superimposed on chronic kidney disease Current Visit: Yes Status: Acute Plan to address problem: acute kidney injury superimposed on chronic disease vs progressive chronic kidney disease which is now end-stage renal disease. no signs of significant renal recovery, will need terminal gauger HD/outpatient HD placement. s/p permcath placement. stable for discharge once outpatient HD arranged (2) Metabolic acidosis Current Visit: Yes Status: Acute Plan to address problem: improving with HD (3) Hyperkalemia Current Visit: Yes Status: Acute Plan to address problem: improved with HD cont 2g K renal diet (4) Hyponatremia Current Visit: Yes Status: Acute Plan to address problem: Hypervolemic hyponatremia. Na improved with HD (5) Anemia Current Visit: Yes Status: Chronic Qualifiers: Chronic kidney disease stage: on chronic dialysis Plan to address problem: cont EPO with HD (6) Metabolic encephalopathy Current Visit: No Status: Acute Plan to address problem: Mental status improving with HD (7) Type 2 diabetes mellitus, uncontrolled Current Visit: No Status: Chronic Plan to address problem: Blood sugar management by primary attending Subjective Date of service: 01/08/18 Principal diagnosis: renal failure Interval history: pt seen during HD, awake, alert, in no acute respiratory distress. Objective - Vital Signs Vital signs: Vital Signs - 12hr 01/07/18 01/08/18 01/08/18 23:53 00:30 04:51 Temperature 98.2 F Pulse Rate 104 H Respiratory 18 18 20 Rate Blood Pressure Blood Pressure 132/104 [Right] O2 Sat by Pulse 92 Oximetry 01/08/18 01/08/18 01/08/18 05:08 10:00 10:30 Temperature 98.2 F Pulse Rate 73 83 Respiratory 18 Rate Blood Pressure 132/74 Blood Pressure 132/74 [Right] O2 Sat by Pulse 98 Oximetry - General Appearance General appearance: well-developed, well-nourished, appears stated age EENT: ATNC, PERRL, mucous membranes moist Neck: no JVD Respiratory: Present: Clear to Ascultation Cardiology: regular, S1S2 Gastrointestinal: normoactive bowel sounds, obese Integumentary: no rash, other (no edema ) Neurologic: no focal deficit, alert and oriented x3, strength 5/5, CN 3-12 intact Psychiatric: mood/affect appropriate, cooperative - Lab 01/07/18 05:33 01/07/18 05:33 Most recent lab results Calcium 8.7 mg/dL (8.4-10.2) 01/07/18 05:33 Phosphorus 10.40 mg/dL (2.5-4.5) H 01/02/18 05:00 Magnesium 1.50 mg/dL (1.7-2.3) L 01/02/18 05:00
[2018-01-08 15:07] VITALS: BP 106/47
[2018-01-08] MEDS: HEPARIN IV PRN (15:11)
--- NOTE | 2018-01-08 15:31 | Discharge Summary ---
Providers - Providers Date of Admission: 01/01/18 08:56 Attending physician: IBRAHIMA EL MD 01/01/18 08:55 Consult to Physician [CONS] Stat Consulting Provider: MALCOLM RICE Reason For Exam: hypokalemia, potassium 8.6 Notified:: discussed with Dr. Rice 01/01/18 08:56 Consult to Physician [CONS] Stat Consulting Provider: QUINTIN REYNOLDS Reason For Exam: hyperkalemia, vascular access needed Notified:: paged 01/01/18 08:58 Consult to Physician [CONS] Routine Consulting Provider: KAYLA BHANDARI Reason For Exam: severe hyperkalemia, for ICU admission Place consult to:: office Notified:: yes Phone number called:: [phone] Was contact made?: Yes If yes, spoke with:: Sade Time called:: 10:05 01/01/18 17:00 PICC Line Insertion [Consult to PICC Line RN] [CONS] Routine Reason For Exam: Midline Type Line:: Midline 01/04/18 15:21 Consult to Interventional Radiology [CONS] Routine Consulting Provider: JOAQUIM BRUCE Reason For Exam: needs permcath placement for [facility] HD Place consult to:: Dr. rBuce Notified:: Jewell SIMMONS Phone number called:: Was contact made?: Yes If yes, spoke with:: Niyah-office Time called:: 16:06 Primary care physician: JOSEPH RITCHIE Hospitalization Reason for admission: ams Condition: Stable Hospital course: 44-year-old -[place] female with past medical history significant for hypertension, diabetes mellitus, morbid obesity, drug overdose brought to ED via EMS for altered mental status. Patient was not able to give history and history is obtained from the . Patient had been taking narcotic pain medications for her chronic back pain. Patient did have any seizure-like activity. Per her the patient has history of VIVI due to drug overdose and recovered. Patient's baseline creatinine is 1.2. In the emergency department patient was in acute renal failure with potassium level of 8.6 and patient was given hyperkalemia cocktail and admitted to the floor for emergency hemodialysis. Review of system couldn't be obtained because the patient's altered mental status at the time. patient on admission, nephrology was consulted and started on dialysis, her mental status improved, patient also was intubated and subsequently extubated, Vascath was placed and patient had dialysis arranged and patient was placed for outpatient dialysis and discharged AMS, acute toxic encephalopathy Acute respiratory failure Acute Kidney injury on CKD Gastroenteritis Hyperkalemia Morbid obesity Volume overloadoverload DM with hyperglycemia Metabolic Acidosis Hyponatremia Anemia Disposition: DC- TO HOME OR SELFCARE Time spent for discharge: 35 mins Core Measure Documentation - Palliative Care Palliative Care/ Comfort Measures: Not Applicable - Core Measures Any of the following diagnoses?: none - VTE Discharge Requirements Deep Vein Thrombosis/Pulmonary Embolism Present on Admission: No Exam - Physical Exam Narrative exam: General appearance: well-developed, well-nourished, appears stated age, obese EENT: ATNC, PERRL, mucous membranes moist Neck: no JVD Respiratory: Present: Clear to Ascultation Cardiology: regular, S1S2 Gastrointestinal: normoactive bowel sounds, obese Integumentary: no rash, other ( no edema ) Neurologic: no focal deficit, alert and oriented x3, strength 5/5, CN 3-12 intact Psychiatric: mood/affect appropriate, cooperative - Constitutional Vitals: Temp Pulse Resp BP Pulse Ox 98.8 F 101 H 20 106/47 98 01/08/18 14:00 01/08/18 14:00 01/08/18 14:00 01/08/18 14:00 01/08/18 05:08 Plan Activity: advance as tolerated, fall precautions Diet: diabetic, renal Special Instructions: record daily weights, record daily BP diary, record blood sugar diary Follow up with: JOSEPH RITCHIE MD [Primary Care Provider] - 3-5 Days RIAZ LAFLEUR MD [Staff Physician] - 7 Days NIDIA BURLESON MD [Staff Physician] - 7 Days Prescriptions: amLODIPine [Norvasc] 5 mg PO QDAY #30 tablet Promethazine [Phenergan TAB] 25 mg PO Q8HR PRN #30 tab PRN Reason: Nausea
== END 2018-01-08 18:37 | disposition home or self-care (01) | DRG 917 ==
LOC: ED 05:36 → CC1 08:56 → 4A 01-02 21:13
PROVIDERS: ADMIT Internal Medicine; ATTEND Internal Medicine
PROC: 02H633Z Insertion of Infusion Device into Right Atrium, Percutaneous Approach (ICD-10-PCS; principal; 2018-01-01)
PROC: B244YZZ Ultrasonography of Right Heart using Other Contrast (ICD-10-PCS; 2018-01-01)
PROC: 5A1D70Z Performance of Urinary Filtration, Intermittent, Less than 6 Hours Per Day (ICD-10-PCS; 2018-01-01)
PROC: 4A033R1 Measurement of Arterial Saturation, Peripheral, Percutaneous Approach (ICD-10-PCS; 2018-01-02)
PROC: 5A1D70Z Performance of Urinary Filtration, Intermittent, Less than 6 Hours Per Day (ICD-10-PCS; 2018-01-02)
PROC: 5A09357 Assistance with Respiratory Ventilation, Less than 24 Consecutive Hours, Continuous Positive Airway Pressure (ICD-10-PCS; 2018-01-02)
PROC: 5A1D70Z Performance of Urinary Filtration, Intermittent, Less than 6 Hours Per Day (ICD-10-PCS; 2018-01-05)
PROC: 5A09357 Assistance with Respiratory Ventilation, Less than 24 Consecutive Hours, Continuous Positive Airway Pressure (ICD-10-PCS; 2018-01-05)
PROC: 0J2TXYZ Change Other Device in Trunk Subcutaneous Tissue and Fascia, External Approach (ICD-10-PCS; 2018-01-07)
PROC: 0JH63XZ Insertion of Tunneled Vascular Access Device into Chest Subcutaneous Tissue and Fascia, Percutaneous Approach (ICD-10-PCS; 2018-01-07)
PROC: 02H633Z Insertion of Infusion Device into Right Atrium, Percutaneous Approach (ICD-10-PCS; 2018-01-07)
PROC: 5A1D70Z Performance of Urinary Filtration, Intermittent, Less than 6 Hours Per Day (ICD-10-PCS; 2018-01-08)
DX: T40.2X1A Poisoning by other opioids, accidental (unintentional), initial encounter (principal); G92 Toxic encephalopathy; N18.6 End stage renal disease; I50.33 Acute on chronic diastolic (congestive) heart failure; J96.01 Acute respiratory failure with hypoxia; E87.5 Hyperkalemia; E87.70 Fluid overload, unspecified; Z71.3 Dietary counseling and surveillance; Z88.8 Allergy status to other drugs, medicaments and biological substances; I13.2 Hypertensive heart and chronic kidney disease with heart failure and with stage 5 chronic kidney disease, or end stage renal disease; E11.22 Type 2 diabetes mellitus with diabetic chronic kidney disease; Z99.2 Dependence on renal dialysis; Z79.4 Long term (current) use of insulin; Z79.899 Other long term (current) drug therapy; N17.9 Acute kidney failure, unspecified; J45.909 Unspecified asthma, uncomplicated; Z68.43 Body mass index [BMI] 50.0-59.9, adult; E11.65 Type 2 diabetes mellitus with hyperglycemia; E66.2 Morbid (severe) obesity with alveolar hypoventilation; G89.4 Chronic pain syndrome; E87.1 Hypo-osmolality and hyponatremia; D64.9 Anemia, unspecified; Y92.89 Other specified places as the place of occurrence of the external cause
CPT/HCPCS: 36415; 36556; 36558; 36600; 70450; 71045; 76770; 77001; 80048; 80053; 80061; 80307; 81001; 82140; 82803; 82962; 83735; 83880; 84100; 84484; 84703; 85007; 85025; 85610; 85730; 86706; 86803; 93005; 93010; 94640; 94660; 94760; C1750; C1752; C1769; J0610; J0885; J1644; J1815; J1940; J2250; J2270; J2310; J2405; J2920; J3010; J3475; J7030; J7050

== ENCOUNTER 2018-01-10 04:51 | Inpatient (IN) | payer MEDICAID ==
[2018-01-10 05:47] LABS: Basophils % (Auto) 0.1 % (0.0-1.8); Eosinophils % (Auto) 0.3 % (0.0-4.3); Hemoglobin 6.4 gm/dl (10.1-14.3); Lymphocytes # (Auto) 1.2 K/mm3 (1.2-5.4); Lymphocytes % (Auto) 10.7 % (13.4-35.0); Mean Corpuscular HGB Conc 32 % (30-34); Mean Corpuscular Hemoglobin 28 pg (28-32); Mean Corpuscular Volume 85 fl (79-97); Monocytes # (Auto) 0.7 K/mm3 (0.0-0.8); Monocytes % (Auto) 5.8 % (0.0-7.3); Platelet Count 327 K/mm3 (140-440); Red Blood Count 2.33 M/mm3 (3.65-5.03); Red Cell Distribution Width 16.7 % (13.2-15.2)
[2018-01-10 05:53] LABS: Alanine Aminotransferase < 5 units/L (7-56); Albumin 3.6 g/dL (3.9-5); BUN/Creatinine Ratio 8; Blood Urea Nitrogen 29 mg/dL (7-17); Hemolysis Index 14
[2018-01-10 05:57] LABS: Hematocrit 20.1 % (30.3-42.9)
--- NOTE | 2018-01-10 07:49 | Emergency Department Report ---
ED General Adult HPI - General Chief complaint: Nausea/Vomiting/Diarrhea Stated complaint: NAUSEA VOMITING Time Seen by Provider: 01/10/18 07:47 Source: patient, EMS Mode of arrival: Stretcher Limitations: No Limitations - History of Present Illness Initial comments: The patient was Hyperkalemia and worsening chronic renal failure last week. Dialysis catheter was placed. She states that she was scheduled for her first dialysis today. However, she complains of persistent nausea and vomiting but denies diarrhea. She denies any signs of black stool or hematochezia. She has not had any cyanosis. In any case her nausea was unrelieved by promethazine and she decided to come to the emergency department today for evaluation rather than go to dialysis. -: days(s), week(s) Associated Symptoms: denies other symptoms, nausea/vomiting, shortness of breath - Related Data Home Medications Medication Instructions Recorded Confirmed Last Taken Insulin NPH Hum/Reg Insulin Hm 40 unit SQ QPM 10/05/15 01/10/18 Unknown [HumuLIN 70-30 Vial] Sertraline [Zoloft] 100 mg PO QDAY 10/05/15 01/10/18 Unknown methOCARBAMOL [Robaxin TAB] 500 mg PO BID 07/18/16 01/10/18 Unknown Previous Rx's Medication Instructions Recorded Last Taken Type Pantoprazole [Protonix TAB] 40 mg PO QDAY #30 tablet 09/06/16 Unknown Rx Labetalol [Normodyne TAB] 100 mg PO BID #60 tablet 09/09/16 Unknown Rx Metoclopramide [Reglan TAB] 10 mg PO TID PRN #20 tab 09/13/16 Unknown Rx Dicyclomine [Bentyl] 20 mg PO QID #30 tablet 01/28/17 Unknown Rx ALBUTEROL NEB's [Proventil 0.083% 2.5 mg IH Q3HRT PRN #30 nebu 04/11/17 Unknown Rx NEBS] Sodium Bicarbonate 650 mg PO BID #60 tablet 04/11/17 Unknown Rx oxyCODONE /ACETAMINOPHEN [Percocet 1 tab PO Q4H PRN #30 tablet 04/11/17 Unknown Rx 5/325 mg] Promethazine [Phenergan TAB] 25 mg PO Q8HR PRN #30 tab 01/08/18 Unknown Rx amLODIPine [Norvasc] 5 mg PO QDAY #30 tablet 01/08/18 Unknown Rx Allergies Allergy/AdvReac Type Severity Reaction Status Date / Time ketorolac tromethamine Allergy Unknown Verified 08/16/17 05:28 [From Toradol] meperidine HCl [From Demerol] Allergy Shortness Verified 08/16/17 05:28 of Breath ED Review of Systems ROS: Stated complaint: NAUSEA VOMITING Other details as noted in HPI Constitutional: denies: chills, fever Eyes: denies: eye pain, eye discharge, vision change ENT: denies: ear pain, throat pain Respiratory: shortness of breath. denies: cough, wheezing Cardiovascular: denies: chest pain, palpitations Endocrine: no symptoms reported Gastrointestinal: nausea, vomiting. denies: abdominal pain, diarrhea Genitourinary: denies: urgency, dysuria, discharge Musculoskeletal: denies: back pain, joint swelling, arthralgia Skin: denies: rash, lesions Neurological: denies: headache, weakness, paresthesias Psychiatric: denies: anxiety, depression Hematological/Lymphatic: denies: easy bleeding, easy bruising ED Past Medical Hx - Past Medical History Previous Medical History?: Yes Hx Hypertension: Yes Hx CVA: No Hx Heart Attack/AMI: No Hx Congestive Heart Failure: Yes Hx Diabetes: Yes Hx Deep Vein Thrombosis: No Hx Pulmonary Embolism: No Hx GERD: No Hx Liver Disease: No Hx Renal Disease: No Hx Sickle Cell Disease: No Hx Arthritis: No Hx Headaches / Migraines: No Hx Seizures: No Hx Kidney Stones: No Hx Psychiatric Treatment: No Hx Asthma: Yes Hx COPD: No Hx Dementia: No Hx HIV: No Additional medical history: spina bifida, Gastroparesis. morbid obesity, - Surgical History Past Surgical History?: Yes Hx Coronary Stent: No Hx Open Heart Surgery: No Hx Pacemaker: No Hx Internal Defibrillator: No Hx Cholecystectomy: Yes Hx Appendectomy: Yes Hx Breast Surgery: Yes (breast reduction) Additional Surgical History: Right chest port-discontinued - Social History Smoking Status: Never Smoker - Medications Home Medications: Home Medications Medication Instructions Recorded Confirmed Last Taken Type Insulin NPH Hum/Reg Insulin Hm 40 unit SQ QPM 10/05/15 01/10/18 Unknown History [HumuLIN 70-30 Vial] Sertraline [Zoloft] 100 mg PO QDAY 10/05/15 01/10/18 Unknown History methOCARBAMOL [Robaxin TAB] 500 mg PO BID 07/18/16 01/10/18 Unknown History Pantoprazole [Protonix TAB] 40 mg PO QDAY #30 tablet 09/06/16 01/10/18 Unknown Rx Labetalol [Normodyne TAB] 100 mg PO BID #60 tablet 09/09/16 01/10/18 Unknown Rx Metoclopramide [Reglan TAB] 10 mg PO TID PRN #20 tab 09/13/16 01/10/18 Unknown Rx Dicyclomine [Bentyl] 20 mg PO QID #30 tablet 01/28/17 01/10/18 Unknown Rx ALBUTEROL NEB's [Proventil 0.083% 2.5 mg IH Q3HRT PRN #30 nebu 04/11/17 Unknown Rx NEBS] Sodium Bicarbonate 650 mg PO BID #60 tablet 04/11/17 01/10/18 Unknown Rx oxyCODONE /ACETAMINOPHEN [Percocet 1 tab PO Q4H PRN #30 tablet 04/11/17 Unknown Rx 5/325 mg] Promethazine [Phenergan TAB] 25 mg PO Q8HR PRN #30 tab 01/08/18 01/10/18 Unknown Rx amLODIPine [Norvasc] 5 mg PO QDAY #30 tablet 01/08/18 01/10/18 Unknown Rx ED Physical Exam - General Limitations: No Limitations General appearance: alert, in no apparent distress - Head Head exam: Present: atraumatic, normocephalic - Eye Eye exam: Present: normal appearance. Absent: scleral icterus - ENT ENT exam: Present: mucous membranes moist - Neck Neck exam: Present: normal inspection - Respiratory Respiratory exam: Present: normal lung sounds bilaterally. Absent: respiratory distress - Cardiovascular Cardiovascular Exam: Present: regular rate, normal rhythm. Absent: systolic murmur, diastolic murmur, rubs, gallop - GI/Abdominal GI/Abdominal exam: Present: soft, normal bowel sounds. Absent: distended, tenderness, guarding, rebound, rigid - Extremities Exam Extremities exam: Present: normal inspection - Back Exam Back exam: Present: normal inspection - Neurological Exam Neurological exam: Present: alert, oriented X3 - Psychiatric Psychiatric exam: Present: normal affect, normal mood - Skin Skin exam: Present: warm, dry, intact, normal color. Absent: rash ED Course Vital Signs 01/10/18 01/10/18 01/10/18 04:59 05:00 05:14 Temperature 98.5 F Pulse Rate 113 H Respiratory 18 18 Rate Blood Pressure 147/78 Blood Pressure [Left] O2 Sat by Pulse Oximetry 01/10/18 01/10/18 01/10/18 05:16 05:30 05:46 Temperature Pulse Rate 91 H 95 H 112 H Respiratory 18 45 H 21 Rate Blood Pressure 147/78 147/78 147/78 Blood Pressure [Left] O2 Sat by Pulse 100 98 99 Oximetry 01/10/18 01/10/18 01/10/18 06:00 06:16 06:30 Temperature Pulse Rate 108 H 108 H 105 H Respiratory 22 28 H 20 Rate Blood Pressure 147/78 147/78 147/78 Blood Pressure [Left] O2 Sat by Pulse 99 100 99 Oximetry 01/10/18 01/10/18 01/10/18 06:40 06:50 07:00 Temperature Pulse Rate 92 H 91 H Respiratory 21 21 20 Rate Blood Pressure 147/78 147/78 147/78 Blood Pressure [Left] O2 Sat by Pulse 99 96 96 Oximetry 01/10/18 01/10/18 01/10/18 07:10 07:20 07:30 Temperature Pulse Rate 90 89 Respiratory 18 18 17 Rate Blood Pressure 147/78 147/78 147/78 Blood Pressure [Left] O2 Sat by Pulse 86 94 99 Oximetry 01/10/18 01/10/18 01/10/18 07:40 07:50 08:00 Temperature Pulse Rate Respiratory Rate Blood Pressure 147/78 147/78 147/78 Blood Pressure [Left] O2 Sat by Pulse 99 99 100 Oximetry 01/10/18 01/10/18 01/10/18 08:10 08:20 08:30 Temperature Pulse Rate Respiratory 14 15 12 Rate Blood Pressure 147/78 147/78 147/78 Blood Pressure [Left] O2 Sat by Pulse 99 97 100 Oximetry 01/10/18 01/10/18 01/10/18 08:40 08:50 09:00 Temperature Pulse Rate Respiratory 13 13 13 Rate Blood Pressure 147/78 147/78 147/78 Blood Pressure [Left] O2 Sat by Pulse 100 98 98 Oximetry 01/10/18 01/10/18 01/10/18 09:10 09:20 09:30 Temperature Pulse Rate 65 Respiratory Rate Blood Pressure 147/78 147/78 147/78 Blood Pressure [Left] O2 Sat by Pulse 98 98 100 Oximetry 01/10/18 09:39 Temperature 98 F Pulse Rate 105 H Respiratory 24 Rate Blood Pressure Blood Pressure 112/77 [Left] O2 Sat by Pulse 100 Oximetry ED Medical Decision Making - Lab Data Result diagrams: 01/10/18 05:27 01/10/18 05:27 Laboratory Results - last 24 hr 01/10/18 01/10/18 05:27 05:27 WBC 11.5 H RBC 2.33 L Hgb 6.4 L Hct 20.1 L MCV 85 MCH 28 MCHC 32 RDW 16.7 H Plt Count 327 Lymph % (Auto) 10.7 L [place] % (Auto) 5.8 Eos % (Auto) 0.3 Baso % (Auto) 0.1 Lymph # 1.2 [place] # 0.7 Eos # 0.0 Baso # 0.0 Seg Neutrophils % 83.1 H Seg Neutrophils # 9.5 H Sodium 138 Potassium 3.9 Chloride 94.2 L Carbon Dioxide 25 Anion Gap 23 BUN 29 H Creatinine 3.8 H Estimated GFR 16 BUN/Creatinine Ratio 8 Glucose 233 H Calcium 9.0 Total Bilirubin 0.30 AST 8 ALT < 5 L Alkaline Phosphatase 90 Total Protein 7.3 Albumin 3.6 L Albumin/Globulin Ratio 1.0 Critical care attestation.: If time is entered above; I have spent that time in minutes in the direct care of this critically ill patient, excluding procedure time. ED Disposition Clinical Impression: Symptomatic anemia, Chronic renal insufficiency, stage IV (severe) Disposition: DC09 OP ADMIT IP TO THIS HOSP Is pt being admited?: Yes Does the pt Need Aspirin: Yes Condition: Stable Time of Disposition: 14:48
[2018-01-10] MEDS ORDERED: NACL 0.9% 500 ML 500 ML IV ONE (07:51)
[2018-01-10] MEDS ORDERED: PEPCID IV ONE (07:52)
[2018-01-10] MEDS ORDERED: ZOFRAN ODT PO ONE (08:11)
[2018-01-10] MEDS ORDERED: MORPHINE IM ONE (08:11)
--- NOTE | 2018-01-10 08:16 | XRay Report ---
AP CHEST: HISTORY: Hypertension AP view of the chest demonstrates a normal mediastinal and cardiac contour with clear lungs and normal bony and soft tissue structures. Dual-lumen right IJ venous catheter terminates at the cavoatrial junction. IMPRESSION: Unremarkable AP chest.
[2018-01-10] MEDS ORDERED: SODIUM CHLORIDE FLUSH SYRINGE 10 ML IV PRN (08:57)
[2018-01-10] MEDS ORDERED: TYLENOL PO PRN (08:57)
[2018-01-10] MEDS ORDERED: PHENERGAN PO PRN (08:58)
[2018-01-10] MEDS ORDERED: ZOFRAN ODT PO PRN (08:58)
[2018-01-10] MEDS ORDERED: REGLAN PO PRN (08:58)
[2018-01-10] MEDS ORDERED: PROVENTIL IH PRN (08:58)
[2018-01-10] MEDS ORDERED: PERCOCET 5/325 PO PRN (08:58)
[2018-01-10 09:11] LABS: Albumin 3.4 g/dL (3.9-5)
[2018-01-10 09:11] LABS: INR 1.18 (0.87-1.13)
[2018-01-10 09:12] LABS: Partial Thromboplastin Time 39.4 Sec. (24.2-36.6)
[2018-01-10 09:12] LABS: Alanine Aminotransferase < 5 units/L (7-56); Bilirubin,Direct < 0.2 mg/dL (0-0.2)
[2018-01-10] MEDS ORDERED: NACL 0.9% 100 ML IV PRN (10:28)
[2018-01-10] MEDS: DILAUDID IV PRN ×2 (12:15→19:07)
[2018-01-10] MEDS ORDERED: BENADRYL IV STA (13:02)
[2018-01-10] MEDS ORDERED: NACL 0.9 (PRIMING MACHINE ONLY DIALYSIS) MC ONE (13:34)
[2018-01-10] MEDS ORDERED: BABY ASPIRIN PO ONE (14:49)
[2018-01-10] MEDS: BENTYL PO SCH ×4 (15:50→23:05)
[2018-01-10] MEDS: NORMODYNE PO SCH ×2 (15:50→23:05)
[2018-01-10] MEDS: ROBAXIN PO SCH ×3 (15:51→23:05)
[2018-01-10] MEDS: SODIUM BICARBONATE PO SCH ×3 (15:51→23:05)
[2018-01-10] MEDS: SODIUM CHLORIDE FLUSH SYRINGE 10 ML IV SCH ×2 (15:51→22:00)
--- NOTE | 2018-01-10 16:37 | Gastroenterology Consultation ---
History of Present Illness - Reason for Consult Consult date: 01/10/18 N/V Requesting physician: MARY ARMAS - History of Present Illness The patient is a 42 yo female with chronic abdominal pain > 10 years. She has been on narcotics for this for several years and has a hx of inappropriate use ( admitted recently with inadvertent overdose). She has had a GI evaluation by Dr Pascal ([facility]), Dr Magana ([facility]) and others without obvious source being found. She complains of both chronic pain and chronic intractable N/V (her weight used to be >500 pounds many years ago; now is about 250, though stable for last several months). She has no blood in the emesis or BMs. She is known to have a moderate hiatal hernia from EGD in 2016, and when she describes vomiting, it sounds (to me) like more regurgitation. She has had progressive renal failure (presumably from DM and HTN) and is newly on HD. There is no family hx per the patient of GB disease or IBD/bowel obstruction. Past History Past Medical History: diabetes, hypertension, renal failure (newly on HD), other (Morbid Obesity, RISSA/asthma) Past Surgical History: appendectomy, cholecystectomy, , Other (VasCath) Social history: , prescription drug abuse. denies: smoking Family history: no significant family history Medications and Allergies Allergies Allergy/AdvReac Type Severity Reaction Status Date / Time ketorolac tromethamine Allergy Unknown Verified 08/16/17 05:28 [From Toradol] meperidine HCl [From Demerol] Allergy Shortness Verified 08/16/17 05:28 of Breath Home Medications Medication Instructions Recorded Confirmed Last Taken Type Insulin NPH Hum/Reg Insulin Hm 40 unit SQ QPM 10/05/15 01/10/18 Unknown History [HumuLIN 70-30 Vial] Sertraline [Zoloft] 100 mg PO QDAY 10/05/15 01/10/18 Unknown History methOCARBAMOL [Robaxin TAB] 500 mg PO BID 07/18/16 01/10/18 Unknown History Pantoprazole [Protonix TAB] 40 mg PO QDAY #30 tablet 09/06/16 01/10/18 Unknown Rx Labetalol [Normodyne TAB] 100 mg PO BID #60 tablet 09/09/16 01/10/18 Unknown Rx Metoclopramide [Reglan TAB] 10 mg PO TID PRN #20 tab 09/13/16 01/10/18 Unknown Rx Dicyclomine [Bentyl] 20 mg PO QID #30 tablet 01/28/17 01/10/18 Unknown Rx ALBUTEROL NEB's [Proventil 0.083% 2.5 mg IH Q3HRT PRN #30 nebu 04/11/17 Unknown Rx NEBS] Sodium Bicarbonate 650 mg PO BID #60 tablet 04/11/17 01/10/18 Unknown Rx oxyCODONE /ACETAMINOPHEN [Percocet 1 tab PO Q4H PRN #30 tablet 04/11/17 Unknown Rx 5/325 mg] Promethazine [Phenergan TAB] 25 mg PO Q8HR PRN #30 tab 01/08/18 01/10/18 Unknown Rx amLODIPine [Norvasc] 5 mg PO QDAY #30 tablet 01/08/18 01/10/18 Unknown Rx Active Meds: Active Medications Acetaminophen (Tylenol) 650 mg PO Q4H PRN PRN Reason: Pain MILD(1-3)/Fever >100.5/[place] Albuterol (Proventil) 2.5 mg IH Q3HRT PRN PRN Reason: Shortness Of Breath Amlodipine Besylate (Norvasc) 5 mg PO QDAY [facility] Dicyclomine HCl (Bentyl) 20 mg PO QID [facility] Last Admin: 01/10/18 15:50 Dose: Not Given Heparin Sodium (Porcine) (Heparin) 5,000 unit IV KIT PRN PRN Reason: hemodialysis Hydromorphone HCl (Dilaudid) 1 mg IV Q6H PRN PRN Reason: Pain , Severe (7-10) Last Admin: 01/10/18 12:15 Dose: 1 mg Sodium Chloride (Nacl 0.9%) 100 mls @ 999 mls/hr IV KIT PRN PRN Reason: Hypotension Insulin Human Isoph/Insulin Regular (Humulin 70/30) 30 unit SUB-Q QAMDIAB [facility] Labetalol HCl (Normodyne) 100 mg PO BID [facility] Last Admin: 01/10/18 15:50 Dose: Not Given Methocarbamol (Robaxin) 500 mg PO BID [facility] Last Admin: 01/10/18 15:51 Dose: Not Given Metoclopramide HCl (Reglan) 5 mg PO TID PRN PRN Reason: Nausea Ondansetron HCl (Zofran) 4 mg IV Q8H PRN PRN Reason: Nausea And Vomiting Ondansetron HCl (Zofran Odt) 8 mg PO Q8HR PRN PRN Reason: Nausea And Vomiting Oxycodone/Acetaminophen (Percocet 5/325) 1 tab PO Q4H PRN PRN Reason: Pain, Moderate (4-6) Pantoprazole Sodium (Protonix) 40 mg PO QDAY ELISA Promethazine HCl (Phenergan) 25 mg PO Q8HR PRN PRN Reason: Nausea Sertraline HCl (Zoloft) 100 mg PO QDAY ELISA Sodium Bicarbonate (Sodium Bicarbonate) 650 mg PO BID [facility] Last Admin: 01/10/18 15:51 Dose: Not Given Sodium Chloride (Sodium Chloride Flush Syringe 10 Ml) 10 ml IV BID [facility] Last Admin: 01/10/18 15:51 Dose: Not Given Sodium Chloride (Sodium Chloride Flush Syringe 10 Ml) 10 ml IV PRN PRN PRN Reason: LINE FLUSH I have reviewed/reconciled medications. Review of Systems - Review of Systems All systems: negative (as noted in the HPI.) Exam - Constitutional Vital Signs: Temp Pulse Resp BP Pulse Ox 98.2 F 108 H 18 130/86 99 01/10/18 14:45 01/10/18 14:45 01/10/18 14:45 01/10/18 14:45 01/10/18 10:17 General appearance: no acute distress, obese - EENT Eyes: PERRL, EOM intact ENT: hearing intact, poor dentition, no thrush - Neck Neck: supple - Respiratory Respiratory effort: normal Respiratory: bilateral: CTA - Cardiovascular Rhythm: regular Heart Sounds: Present: S1 & S2 Extremities: no ischemia, No edema - Gastrointestinal General gastrointestinal: Present: soft, non-tender (subjective guarding, none while distracted), non-distended - Integumentary Integumentary: Present: clear, warm, dry - Neurologic Neurological: alert and oriented x3 - Labs CBC & Chem 7: 01/10/18 05:27 01/10/18 05:27 Lab Results: Laboratory Results - last 24 hr 01/10/18 01/10/18 01/10/18 05:27 05:27 08:41 WBC 11.5 H RBC 2.33 L Hgb 6.4 L Hct 20.1 L MCV 85 MCH 28 MCHC 32 RDW 16.7 H Plt Count 327 Lymph % (Auto) 10.7 L [place] % (Auto) 5.8 Eos % (Auto) 0.3 Baso % (Auto) 0.1 Lymph # 1.2 [place] # 0.7 Eos # 0.0 Baso # 0.0 Seg Neutrophils % 83.1 H Seg Neutrophils # 9.5 H PT INR APTT Sodium 138 Potassium 3.9 Chloride 94.2 L Carbon Dioxide 25 Anion Gap 23 BUN 29 H Creatinine 3.8 H Estimated GFR 16 BUN/Creatinine Ratio 8 Glucose 233 H Calcium 9.0 Magnesium 1.70 Total Bilirubin 0.30 0.30 Direct Bilirubin < 0.2 Indirect Bilirubin 0.1 AST 8 8 ALT < 5 L < 5 L Alkaline Phosphatase 90 84 NT-Pro-B Natriuret Pep 453.4 H Total Protein 7.3 7.6 Albumin 3.6 L 3.4 L Albumin/Globulin Ratio 1.0 0.8 Blood Type Antibody Screen Crossmatch 01/10/18 01/10/18 08:49 08:49 WBC RBC Hgb Hct MCV MCH MCHC RDW Plt Count Lymph % (Auto) [place] % (Auto) Eos % (Auto) Baso % (Auto) Lymph # [place] # Eos # Baso # Seg Neutrophils % Seg Neutrophils # PT 15.7 H INR 1.18 H APTT 39.4 H Sodium Potassium Chloride Carbon Dioxide Anion Gap BUN Creatinine Estimated GFR BUN/Creatinine Ratio Glucose Calcium Magnesium Total Bilirubin Direct Bilirubin Indirect Bilirubin AST ALT Alkaline Phosphatase NT-Pro-B Natriuret Pep Total Protein Albumin Albumin/Globulin Ratio Blood Type O POSITIVE Antibody Screen Negative Crossmatch See Detail Assessment and Plan - Patient Problems (1) Vomiting with nausea, not intractable Current Visit: Yes Status: Acute Plan to address problem: - Despite intractable N/V the patient continues to weigh >250 pounds for several months. - She has had a scattered, but significant, workup over the last several years per the chart. - Some of her N/V appears related to regurgitation, and I will re-assess the hiatal hernia with a barium study. - I would recommend d/c all PRN narcotics, and place her on a strict scheduled pain med regimen. - I would continue bentyl, but librax may be of better benefit (but I am hesitant to add to narcotics). - Significant weight loss, and improved control of DM/HTN strongly encouraged. (2) Generalized abdominal pain Current Visit: Yes Status: Acute (3) End stage renal disease on dialysis Current Visit: Yes Status: Acute (4) Morbid obesity Current Visit: Yes Status: Acute
--- NOTE | 2018-01-10 16:59 | History and Physical Report ---
History of Present Illness Date of examination: 01/10/18 Date of admission: 01/10/18 08:57 Chief complaint: Intractable Nausea and vomiting History of present illness: Patient is a 42 year old female with hx of VIVI/CKD on HD, Spina bifida, chronic back pain and opiod dependence, ANEMIA With multiple GI work up in the past, Morbid obesity with weightloss from over 500 to 250 pounds and was recently discharged from the hospital after being started on HD presented today with complaints of Intractable nausea with vomiting and unrelenting back pain. She denies any chest pain, diarrhea, melana, hemotpysis or hematochzia. In the ER the patient was given pain meds with no relieve. Her vomiting is better but with nausea still persist and she is noted to have a hemoglobin to 6.4 Past History Past Medical History: diabetes, hypertension, renal failure (newly on HD), other (Morbid Obesity, RISSA/asthma) Past Surgical History: appendectomy, cholecystectomy, , Other (VasCath) Social history: , prescription drug abuse. denies: smoking Family history: no significant family history Medications and Allergies Allergies Allergy/AdvReac Type Severity Reaction Status Date / Time ketorolac tromethamine Allergy Unknown Verified 08/16/17 05:28 [From Toradol] meperidine HCl [From Demerol] Allergy Shortness Verified 08/16/17 05:28 of Breath Home Medications Medication Instructions Recorded Confirmed Last Taken Type Insulin NPH Hum/Reg Insulin Hm 40 unit SQ QPM 10/05/15 01/10/18 Unknown History [HumuLIN 70-30 Vial] Sertraline [Zoloft] 100 mg PO QDAY 10/05/15 01/10/18 Unknown History methOCARBAMOL [Robaxin TAB] 500 mg PO BID 07/18/16 01/10/18 Unknown History Pantoprazole [Protonix TAB] 40 mg PO QDAY #30 tablet 09/06/16 01/10/18 Unknown Rx Labetalol [Normodyne TAB] 100 mg PO BID #60 tablet 09/09/16 01/10/18 Unknown Rx Metoclopramide [Reglan TAB] 10 mg PO TID PRN #20 tab 09/13/16 01/10/18 Unknown Rx Dicyclomine [Bentyl] 20 mg PO QID #30 tablet 01/28/17 01/10/18 Unknown Rx ALBUTEROL NEB's [Proventil 0.083% 2.5 mg IH Q3HRT PRN #30 nebu 04/11/17 Unknown Rx NEBS] Sodium Bicarbonate 650 mg PO BID #60 tablet 04/11/17 01/10/18 Unknown Rx oxyCODONE /ACETAMINOPHEN [Percocet 1 tab PO Q4H PRN #30 tablet 04/11/17 Unknown Rx 5/325 mg] Promethazine [Phenergan TAB] 25 mg PO Q8HR PRN #30 tab 01/08/18 01/10/18 Unknown Rx amLODIPine [Norvasc] 5 mg PO QDAY #30 tablet 01/08/18 01/10/18 Unknown Rx Active Meds: Active Medications Acetaminophen (Tylenol) 650 mg PO Q4H PRN PRN Reason: Pain MILD(1-3)/Fever >100.5/[place] Albuterol (Proventil) 2.5 mg IH Q3HRT PRN PRN Reason: Shortness Of Breath Amlodipine Besylate (Norvasc) 5 mg PO QDAY [facility] Dicyclomine HCl (Bentyl) 20 mg PO QID [facility] Last Admin: 01/10/18 15:50 Dose: Not Given Heparin Sodium (Porcine) (Heparin) 5,000 unit IV KIT PRN PRN Reason: hemodialysis Hydromorphone HCl (Dilaudid) 1 mg IV Q6H PRN PRN Reason: Pain , Severe (7-10) Last Admin: 01/10/18 12:15 Dose: 1 mg Sodium Chloride (Nacl 0.9%) 100 mls @ 999 mls/hr IV KIT PRN PRN Reason: Hypotension Insulin Human Isoph/Insulin Regular (Humulin 70/30) 30 unit SUB-Q QAMDIAB [facility] Labetalol HCl (Normodyne) 100 mg PO BID [facility] Last Admin: 01/10/18 15:50 Dose: Not Given Methocarbamol (Robaxin) 500 mg PO BID [facility] Last Admin: 01/10/18 15:51 Dose: Not Given Metoclopramide HCl (Reglan) 5 mg PO TID PRN PRN Reason: Nausea Ondansetron HCl (Zofran) 4 mg IV Q8H PRN PRN Reason: Nausea And Vomiting Ondansetron HCl (Zofran Odt) 8 mg PO Q8HR PRN PRN Reason: Nausea And Vomiting Oxycodone/Acetaminophen (Percocet 5/325) 1 tab PO Q4H PRN PRN Reason: Pain, Moderate (4-6) Pantoprazole Sodium (Protonix) 40 mg PO QDAY [facility] Promethazine HCl (Phenergan) 25 mg PO Q8HR PRN PRN Reason: Nausea Sertraline HCl (Zoloft) 100 mg PO QDAY [facility] Sodium Bicarbonate (Sodium Bicarbonate) 650 mg PO BID [facility] Last Admin: 01/10/18 15:51 Dose: Not Given Sodium Chloride (Sodium Chloride Flush Syringe 10 Ml) 10 ml IV BID [facility] Last Admin: 01/10/18 15:51 Dose: Not Given Sodium Chloride (Sodium Chloride Flush Syringe 10 Ml) 10 ml IV PRN PRN PRN Reason: LINE FLUSH Review of Systems All systems: negative Constitutional: fatigue, poor appetite, chronic pain Gastrointestinal: nausea, vomiting, no constipation, no change in bowel habits, no coffee ground emesis, no BRBPR, no melena, no hematochezia, no belching Exam - Constitutional Vitals: Temp Pulse Resp BP Pulse Ox 98.2 F 108 H 18 130/86 99 01/10/18 14:45 01/10/18 14:45 01/10/18 14:45 01/10/18 14:45 01/10/18 10:17 General appearance: Present: no acute distress, well-nourished, obese (morbid obesity) - EENT Eyes: Present: PERRL, EOM intact ENT: hearing intact, clear oral mucosa, dentition normal - Neck Neck: Present: supple, normal ROM - Respiratory Respiratory effort: normal Respiratory: bilateral: CTA - Cardiovascular Rhythm: regular Heart Sounds: Present: S1 & S2. Absent: systolic murmur, diastolic murmur - Extremities Extremities: no ischemia, pulses intact, pulses symmetrical, No edema, normal temperature, normal color, Full ROM Peripheral Pulses: within normal limits - Abdominal General gastrointestinal: Present: soft, non-tender, non-distended - Integumentary Integumentary: Present: clear, warm, dry - Musculoskeletal Musculoskeletal: strength equal bilaterally - Psychiatric Psychiatric: appropriate mood/affect, intact judgment & insight, memory intact - Neurologic Neurologic: CNII-XII intact, moves all extremities - Allied Health Allied health notes reviewed: nursing Results - Labs CBC & Chem 7: 01/10/18 05:27 01/10/18 05:27 Labs: Laboratory Last Values WBC 11.5 K/mm3 (4.5-11.0) H 01/10/18 05:27 RBC 2.33 M/mm3 (3.65-5.03) L 01/10/18 05:27 Hgb 6.4 gm/dl (10.1-14.3) L 01/10/18 05:27 Hct 20.1 % (30.3-42.9) L 01/10/18 05:27 MCV 85 fl (79-97) 01/10/18 05:27 MCH 28 pg (28-32) 01/10/18 05:27 MCHC 32 % (30-34) 01/10/18 05:27 RDW 16.7 % (13.2-15.2) H 01/10/18 05:27 Plt Count 327 K/mm3 (140-440) 01/10/18 05:27 Lymph % (Auto) 10.7 % (13.4-35.0) L 01/10/18 05:27 [place] % (Auto) 5.8 % (0.0-7.3) 01/10/18 05:27 Eos % (Auto) 0.3 % (0.0-4.3) 01/10/18 05:27 Baso % (Auto) 0.1 % (0.0-1.8) 01/10/18 05:27 Lymph # 1.2 K/mm3 (1.2-5.4) 01/10/18 05:27 [place] # 0.7 K/mm3 (0.0-0.8) 01/10/18 05:27 Eos # 0.0 K/mm3 (0.0-0.4) 01/10/18 05:27 Baso # 0.0 K/mm3 (0.0-0.1) 01/10/18 05:27 Seg Neutrophils % 83.1 % (40.0-70.0) H 01/10/18 05:27 Seg Neutrophils # 9.5 K/mm3 (1.8-7.7) H 01/10/18 05:27 PT 15.7 Sec. (12.2-14.9) H 01/10/18 08:49 INR 1.18 (0.87-1.13) H 01/10/18 08:49 APTT 39.4 Sec. (24.2-36.6) H 01/10/18 08:49 Sodium 138 mmol/L (137-145) 01/10/18 05:27 Potassium 3.9 mmol/L (3.6-5.0) 01/10/18 05:27 Chloride 94.2 mmol/L (98-107) L 01/10/18 05:27 Carbon Dioxide 25 mmol/L (22-30) 01/10/18 05:27 Anion Gap 23 mmol/L 01/10/18 05:27 BUN 29 mg/dL (7-17) H 01/10/18 05:27 Creatinine 3.8 mg/dL (0.7-1.2) H 01/10/18 05:27 Estimated GFR 16 ml/min 01/10/18 05:27 BUN/Creatinine Ratio 8 % 01/10/18 05:27 Glucose 233 mg/dL (65-100) H 01/10/18 05:27 Calcium 9.0 mg/dL (8.4-10.2) 01/10/18 05:27 Magnesium 1.70 mg/dL (1.7-2.3) 01/10/18 08:41 Total Bilirubin 0.30 mg/dL (0.1-1.2) 01/10/18 08:41 Direct Bilirubin < 0.2 mg/dL (0-0.2) 01/10/18 08:41 Indirect Bilirubin 0.1 mg/dL 01/10/18 08:41 AST 8 units/L (5-40) 01/10/18 08:41 ALT < 5 units/L (7-56) L 01/10/18 08:41 Alkaline Phosphatase 84 units/L (35-129) 01/10/18 08:41 NT-Pro-B Natriuret Pep 453.4 pg/mL (0-450) H 01/10/18 08:41 Total Protein 7.6 g/dL (6.3-8.2) 01/10/18 08:41 Albumin 3.4 g/dL (3.9-5) L 01/10/18 08:41 Albumin/Globulin Ratio 0.8 % 01/10/18 08:41 Blood Type O POSITIVE 01/10/18 08:49 Antibody Screen Negative 01/10/18 08:49 Crossmatch See Detail 01/10/18 08:49 - Imaging and Cardiology Chest x-ray: image reviewed Assessment and Plan Assessment and plan: Patient is a 42 year old female with hx of VIVI/CKD on HD, Spina bifida, chronic back pain and opiod dependence, ANEMIA With multiple GI work up in the past, Morbid obesity with weightloss from over 500 to 250 pounds and was recently discharged from the hospital after being started on HD presented today with complaints of Intractable nausea with vomiting and unrelenting back pain. She denies any chest pain, diarrhea, melana, hemotpysis or hematochzia. In the ER the patient was given pain meds with no relieve. Her vomiting is better but with nausea still persist and she is noted to have a hemoglobin to 6.4 VIVI ON CKD on HD * Nephrology consult for continued dialysis Acute on Chronic Back pain/Chronic Opioid dependance sysndrome * Gentle use of opioids Severe Anemia * GI consult * Transfuse 2 units PRBC Secondary Coagulopathy * Monitor INR Interactable Nausea and vomiting * GI consulted, Zofran and Other medication use for nausea suppression Diabetic Mellitus * Insulin AND Accucheck Morbid Obesity * Patient already loosing weight Leukocytosis * Likely reactive. DVT/GI Advance Directives: Yes Plan of care discussed with patient/family: Yes
--- NOTE | 2018-01-10 18:31 | Consultation ---
History of Present Illness - Reason for Consult Consult date: 01/10/18 acute renal failure, chronic renal failure Requesting physician: IBRAHIMA EL - History of Present Illness This is a 42 yo AAF with a history diabetes mellitus, hypertension, chronic kidney disease, morbid obesity, anemia of CKD, who was recently hospitalized from 01/01 to 01/08 for acute on progressive CKD, was initiated on HD due to uremic encephalopathy which improved with HD. Pt was discharged with outpatient HD arrangement since no significant renal recovery was seen, however returns to [facility] ER today presenting with persistent nausea and vomiting, without diarrhea melena. Initial labs showed sigificant anemia with hb as low as 6,4, a drop from 7,5 on 01/07. pt is admitted for blood transfusion and further GI work up. renal consult requested for management of VIVI on CKD/HD. Pt denies any signs of black stool or hematochezia, fever, chills, CP, palpitations, SOB. Past History Past Medical History: diabetes, hypertension, renal failure (newly on HD), other (Morbid Obesity, RISSA/asthma) Past Surgical History: appendectomy, cholecystectomy, , Other (VasCath) Social history: , prescription drug abuse. denies: smoking Family history: no significant family history Medications and Allergies Allergies Allergy/AdvReac Type Severity Reaction Status Date / Time ketorolac tromethamine Allergy Unknown Verified 08/16/17 05:28 [From Toradol] meperidine HCl [From Demerol] Allergy Shortness Verified 08/16/17 05:28 of Breath Home Medications Medication Instructions Recorded Confirmed Last Taken Type Insulin NPH Hum/Reg Insulin Hm 40 unit SQ QPM 10/05/15 01/10/18 Unknown History [HumuLIN 70-30 Vial] Sertraline [Zoloft] 100 mg PO QDAY 10/05/15 01/10/18 Unknown History methOCARBAMOL [Robaxin TAB] 500 mg PO BID 07/18/16 01/10/18 Unknown History Pantoprazole [Protonix TAB] 40 mg PO QDAY #30 tablet 09/06/16 01/10/18 Unknown Rx Labetalol [Normodyne TAB] 100 mg PO BID #60 tablet 09/09/16 01/10/18 Unknown Rx Metoclopramide [Reglan TAB] 10 mg PO TID PRN #20 tab 09/13/16 01/10/18 Unknown Rx Dicyclomine [Bentyl] 20 mg PO QID #30 tablet 01/28/17 01/10/18 Unknown Rx ALBUTEROL NEB's [Proventil 0.083% 2.5 mg IH Q3HRT PRN #30 nebu 04/11/17 Unknown Rx NEBS] Sodium Bicarbonate 650 mg PO BID #60 tablet 04/11/17 01/10/18 Unknown Rx oxyCODONE /ACETAMINOPHEN [Percocet 1 tab PO Q4H PRN #30 tablet 04/11/17 Unknown Rx 5/325 mg] Promethazine [Phenergan TAB] 25 mg PO Q8HR PRN #30 tab 01/08/18 01/10/18 Unknown Rx amLODIPine [Norvasc] 5 mg PO QDAY #30 tablet 01/08/18 01/10/18 Unknown Rx Active Meds: Active Medications Acetaminophen (Tylenol) 650 mg PO Q4H PRN PRN Reason: Pain MILD(1-3)/Fever >100.5/[place] Albuterol (Proventil) 2.5 mg IH Q3HRT PRN PRN Reason: Shortness Of Breath Amlodipine Besylate (Norvasc) 5 mg PO QDAY [facility] Dicyclomine HCl (Bentyl) 20 mg PO QID [facility] Last Admin: 01/10/18 15:50 Dose: Not Given Heparin Sodium (Porcine) (Heparin) 5,000 unit IV KIT PRN PRN Reason: hemodialysis Hydromorphone HCl (Dilaudid) 1 mg IV Q6H PRN PRN Reason: Pain , Severe (7-10) Last Admin: 01/10/18 12:15 Dose: 1 mg Sodium Chloride (Nacl 0.9%) 100 mls @ 999 mls/hr IV KIT PRN PRN Reason: Hypotension Insulin Human Isoph/Insulin Regular (Humulin 70/30) 30 unit SUB-Q QAMDIAB [facility] Labetalol HCl (Normodyne) 100 mg PO BID [facility] Last Admin: 01/10/18 15:50 Dose: Not Given Methocarbamol (Robaxin) 500 mg PO BID [facility] Last Admin: 01/10/18 15:51 Dose: Not Given Metoclopramide HCl (Reglan) 5 mg PO TID PRN PRN Reason: Nausea Ondansetron HCl (Zofran) 4 mg IV Q8H PRN PRN Reason: Nausea And Vomiting Ondansetron HCl (Zofran Odt) 8 mg PO Q8HR PRN PRN Reason: Nausea And Vomiting Oxycodone/Acetaminophen (Percocet 5/325) 1 tab PO Q4H PRN PRN Reason: Pain, Moderate (4-6) Pantoprazole Sodium (Protonix) 40 mg PO QDAY [facility] Promethazine HCl (Phenergan) 25 mg PO Q8HR PRN PRN Reason: Nausea Sertraline HCl (Zoloft) 100 mg PO QDAY [facility] Sodium Bicarbonate (Sodium Bicarbonate) 650 mg PO BID [facility] Last Admin: 01/10/18 15:51 Dose: Not Given Sodium Chloride (Sodium Chloride Flush Syringe 10 Ml) 10 ml IV BID [facility] Last Admin: 01/10/18 15:51 Dose: Not Given Sodium Chloride (Sodium Chloride Flush Syringe 10 Ml) 10 ml IV PRN PRN PRN Reason: LINE FLUSH Review of Systems All systems: negative Constitutional: weakness Gastrointestinal: abdominal pain, nausea, vomiting Exam - Vital Signs Vital signs: Vital Signs Resp 18 01/10/18 04:59 - General Appearance General appearance: well-developed, well-nourished, appears stated age EENT: ATNC, PERRL, mucous membranes moist Neck: Present: neck supple Respiratory: Clear to Ascultation Heart: regular, S1S2 Gastrointestinal: Present: normoactive bowel sounds, obese Integumentary: no rash, other (no edema ) Neurologic: no focal deficit, alert and oriented x3, strength 5/5, CN 3-12 intact Psychiatric: mood/affect appropriate, cooperative Results - Lab Results 01/10/18 05:27 01/10/18 05:27 Most recent lab results Calcium 9.0 mg/dL (8.4-10.2) 01/10/18 05:27 Magnesium 1.70 mg/dL (1.7-2.3) 01/10/18 08:41 Assessment and Plan - Patient Problems (1) Symptomatic anemia Current Visit: Yes Status: Acute Plan to address problem: 1PRBC transfusion via HD. further w/u as per GI. will cont EPO with HD (2) VIVI (acute kidney injury) Current Visit: No Status: Acute Plan to address problem: Vivi vs progressive CKD. will monitor lytes/renal parameters on daily basis and assess signs of renal recovery. strict I/Os supportive care avoid nephrotoxins, IV contrast, NSAIDs cont HD on TTS schedule for now (3) Chronic renal insufficiency, stage IV (severe) Current Visit: Yes Status: Acute Plan to address problem: likely due to underlying hypertensive nephrosclerosis. cont HD on TTS until significant renal recovery seen (4) Morbid obesity Current Visit: Yes Status: Acute (5) Vomiting with nausea, not intractable Current Visit: Yes Status: Acute Plan to address problem: work up as per GI
[2018-01-10] MEDS: HEPARIN IV PRN (19:02)
[2018-01-10] MEDS: ZOFRAN IV PRN (19:08)
[2018-01-10] MEDS: NORVASC PO SCH (19:11)
[2018-01-10] MEDS: PROTONIX PO SCH (19:12)
[2018-01-10] MEDS: ZOLOFT PO SCH (19:12)
[2018-01-10 20:05] LABS: Bilirubin,Urine NEG (Negative); Blood,Urine NEG (Negative); Color,Urine Yellow (Yellow); Mucus,Urine FEW /HPF; Protein,Urine <15 mg/dL mg/dL (Negative); Urobilinogen,Urine < 2.0 mg/dL (<2.0)
[2018-01-10 22:43] LABS: Hematocrit 23.9 % (30.3-42.9); Hemoglobin 7.5 gm/dl (10.1-14.3)
[2018-01-10] MEDS ORDERED: HumuLIN R SUB-Q ONE (23:00)
[2018-01-11] MEDS: DILAUDID IV PRN ×6 (01:07→23:52)
[2018-01-11 06:10] LABS: Basophils # (Auto) 0.1 K/mm3 (0.0-0.1); Basophils % (Auto) 0.4 % (0.0-1.8); Eosinophils # (Auto) 0.1 K/mm3 (0.0-0.4); Eosinophils % (Auto) 0.7 % (0.0-4.3); Hematocrit 24.5 % (30.3-42.9); Hemoglobin 7.6 gm/dl (10.1-14.3); Lymphocytes # (Auto) 2.2 K/mm3 (1.2-5.4); Lymphocytes % (Auto) 16.9 % (13.4-35.0); Mean Corpuscular HGB Conc 31 % (30-34); Mean Corpuscular Hemoglobin 27 pg (28-32); Mean Corpuscular Volume 86 fl (79-97); Monocytes # (Auto) 0.7 K/mm3 (0.0-0.8); Monocytes % (Auto) 5.6 % (0.0-7.3); Platelet Count 240 K/mm3 (140-440); Red Blood Count 2.86 M/mm3 (3.65-5.03); Red Cell Distribution Width 16.9 % (13.2-15.2)
[2018-01-11 06:38] LABS: Calcium 8.9 mg/dL (8.4-10.2)
[2018-01-11] MEDS ORDERED: HumuLIN R SUB-Q SCH (07:30)
[2018-01-11] MEDS ORDERED: DETEMIR SUB-Q SCH (08:00)
--- NOTE | 2018-01-11 08:03 | Progress Note ---
Assessment and Plan Assessment and plan: Patient is a 42 year old female with hx of VIVI/CKD on HD, Spina bifida, chronic back pain and opiod dependence, ANEMIA With multiple GI work up in the past, Morbid obesity with weightloss from over 500 to 250 pounds and was recently discharged from the hospital after being started on HD presented today with complaints of Intractable nausea with vomiting and unrelenting back pain. She denies any chest pain, diarrhea, melana, hemotpysis or hematochzia. In the ER the patient was given pain meds with no relieve. Her vomiting is better but with nausea still persist and she is noted to have a hemoglobin to 6.4 VIVI ON CKD IV on HD * Progressive CKD to ESRD * Nephrology consult for continued dialysis Acute on Chronic Back pain/Chronic Opioid dependance syndrome * Gentle use of opioids Severe Anemia with symptoms * GI consult Noted * SB Flow through today * GI following * Improved with one unit PRBC, EPO on HD Secondary Coagulopathy * Monitor INR Interactable Nausea and vomiting * GI consulted, Zofran and Other medication use for nausea suppression * ?Regurgitation * Bentyl per GI and Hesistant on Librax Diabetic Mellitus * Insulin AND Accucheck Morbid Obesity * Patient already loosing weight Leukocytosis * Likely reactive. DVT/GI Plan of care discussed with patient, anticipate discharge in AM if Symptoms resolve - History Interval history: Patient seen and examined today, continues to complain of exacerbated back pain , no new nausea or vomiting noted. Hospitalist Physical - Constitutional Vitals: Temp Pulse Resp BP Pulse Ox 97.9 F 87 20 131/80 98 01/11/18 07:33 01/11/18 07:33 01/11/18 07:33 01/11/18 07:33 01/11/18 07:33 General appearance: Present: no acute distress, well-nourished, obese (morbid obesity) Results - Labs CBC & Chem 7: 01/11/18 05:32 01/11/18 05:32 Labs: Laboratory Last Values WBC 12.8 K/mm3 (4.5-11.0) H 01/11/18 05:32 RBC 2.86 M/mm3 (3.65-5.03) L 01/11/18 05:32 Hgb 7.6 gm/dl (10.1-14.3) L 01/11/18 05:32 Hct 24.5 % (30.3-42.9) L 01/11/18 05:32 MCV 86 fl (79-97) 01/11/18 05:32 MCH 27 pg (28-32) L 01/11/18 05:32 MCHC 31 % (30-34) 01/11/18 05:32 RDW 16.9 % (13.2-15.2) H 01/11/18 05:32 Plt Count 240 K/mm3 (140-440) 01/11/18 05:32 Lymph % (Auto) 16.9 % (13.4-35.0) 01/11/18 05:32 [place] % (Auto) 5.6 % (0.0-7.3) 01/11/18 05:32 Eos % (Auto) 0.7 % (0.0-4.3) 01/11/18 05:32 Baso % (Auto) 0.4 % (0.0-1.8) 01/11/18 05:32 Lymph # 2.2 K/mm3 (1.2-5.4) 01/11/18 05:32 [place] # 0.7 K/mm3 (0.0-0.8) 01/11/18 05:32 Eos # 0.1 K/mm3 (0.0-0.4) 01/11/18 05:32 Baso # 0.1 K/mm3 (0.0-0.1) 01/11/18 05:32 Seg Neutrophils % 76.4 % (40.0-70.0) H 01/11/18 05:32 Seg Neutrophils # 9.7 K/mm3 (1.8-7.7) H 01/11/18 05:32 PT 15.7 Sec. (12.2-14.9) H 01/10/18 08:49 INR 1.18 (0.87-1.13) H 01/10/18 08:49 APTT 39.4 Sec. (24.2-36.6) H 01/10/18 08:49 Sodium 138 mmol/L (137-145) 01/11/18 05:32 Potassium 4.1 mmol/L (3.6-5.0) 01/11/18 05:32 Chloride 94.2 mmol/L (98-107) L 01/11/18 05:32 Carbon Dioxide 25 mmol/L (22-30) 01/11/18 05:32 Anion Gap 23 mmol/L 01/11/18 05:32 BUN 20 mg/dL (7-17) H 01/11/18 05:32 Creatinine 3.6 mg/dL (0.7-1.2) H 01/11/18 05:32 Estimated GFR 17 ml/min 01/11/18 05:32 BUN/Creatinine Ratio 6 % 01/11/18 05:32 Glucose 192 mg/dL (65-100) H 01/11/18 05:32 POC Glucose 193 (70-105) H 01/11/18 06:31 Calcium 8.9 mg/dL (8.4-10.2) 01/11/18 05:32 Magnesium 1.70 mg/dL (1.7-2.3) 01/10/18 08:41 Total Bilirubin 0.30 mg/dL (0.1-1.2) 01/10/18 08:41 Direct Bilirubin < 0.2 mg/dL (0-0.2) 01/10/18 08:41 Indirect Bilirubin 0.1 mg/dL 01/10/18 08:41 AST 8 units/L (5-40) 01/10/18 08:41 ALT < 5 units/L (7-56) L 01/10/18 08:41 Alkaline Phosphatase 84 units/L (35-129) 01/10/18 08:41 NT-Pro-B Natriuret Pep 453.4 pg/mL (0-450) H 01/10/18 08:41 Total Protein 7.6 g/dL (6.3-8.2) 01/10/18 08:41 Albumin 3.4 g/dL (3.9-5) L 01/10/18 08:41 Albumin/Globulin Ratio 0.8 % 01/10/18 08:41 Urine Color Yellow (Yellow) 01/10/18 Unknown Urine Turbidity Clear (Clear) 01/10/18 Unknown Urine pH 5.0 (5.0-7.0) 01/10/18 Unknown Ur Specific [place] 1.016 (1.003-1.030) 01/10/18 Unknown Urine Protein <15 mg/dl mg/dL (Negative) 01/10/18 Unknown Urine Glucose (UA) Neg mg/dL (Negative) 01/10/18 Unknown Urine Ketones Neg mg/dL (Negative) 01/10/18 Unknown Urine Blood Neg (Negative) 01/10/18 Unknown Urine Nitrite Neg (Negative) 01/10/18 Unknown Urine Bilirubin Neg (Negative) 01/10/18 Unknown Urine Urobilinogen < 2.0 mg/dL (<2.0) 01/10/18 Unknown Ur Leukocyte Esterase Tr (Negative) 01/10/18 Unknown Urine WBC (Auto) 6.0 /HPF (0.0-6.0) 01/10/18 Unknown Urine RBC (Auto) 51.0 /HPF (0.0-6.0) 01/10/18 Unknown U Epithel Cells (Auto) 3.0 /HPF (0-13.0) 01/10/18 Unknown Urine Mucus Few /HPF 01/10/18 Unknown Urine Yeast (Budding) 3+ /HPF 01/10/18 Unknown Blood Type O POSITIVE 01/10/18 08:49 Antibody Screen Negative 01/10/18 08:49 Crossmatch See Detail 01/10/18 08:49
--- NOTE | 2018-01-11 11:25 | Fluoroscopy Report ---
GI series: "Heartburn" The examination was performed on an uncooperative patient. Examination performed in the semiupright AP position. Only a small amount of barium was swallowed. Fluoroscopic evaluation of the contrast-filled esophagus is unremarkable with no obvious hiatus hernia. In the supine position the patient swallowed water with no gross evidence of reflux. The stomach was inadequately filled and the duodenum was not visualized. Impression: Compromised exam. No gross evidence of hernia or normal reflux.
--- NOTE | 2018-01-11 12:41 | Query- Renal Failure ---
Dear Date:__01/11/2018 Product Marketing Engineer/CDS:___Regina Phone#:___[phone] Exercise your independent professional judgment when responding to query. Questions asked do not imply a particular answer is desired or expected. We greatly appreciate your clarification on this issue. Clinical Documentation States: 42 Year old female was admitted on 01/10/2018 with complaints of Intractable nausea with vomiting and unrelenting back pain. The Hospitalist (Dr. Olmos) progress note on 01/11/2018 states : "VIVI ON CKD IV on HD * Nephrology consult for continued dialysis." Clinical Findings Show: Creatinine (01/10): 3.8 Please clarify if you mean: Acute Renal Failure with or due to: [ x] Tubular Necrosis [ ] Medullary Necrosis [ ] Vasomotor Nephropathy [ ] Shock Kidney [ ] Tubular Nephrosis [ ] Renal Tubular Stasis [ ] Cortical Necrosis [ ] Acute Renal Failure (unspecified) [ ] Lower Tubular Nephrosis [ ] Other: [ ] Not Applicable Present on Admission: [y] Yes (Y) [ ] Clinically undeterminable (W) [ ] No (N) Please also document response in your Progress Notes and/or Discharge Summary and indicate if the condition was present on admission. MTDD
--- NOTE | 2018-01-11 13:20 | Progress Note ---
Assessment and Plan - Patient Problems (1) Symptomatic anemia Current Visit: Yes Status: Acute Plan to address problem: s/p 1PRBC transfusion Hb stable at 7.6. further w/u as per GI. cont EPO with HD (2) BRITTANY (acute kidney injury) Current Visit: No Status: Acute Plan to address problem: Brittany on CKD vs progressive CKD to ESRD. will monitor lytes/renal parameters on daily basis and assess signs of renal recovery. strict I/Os supportive care avoid nephrotoxins, IV contrast, NSAIDs cont HD on TTS schedule for now (3) Chronic renal insufficiency, stage IV (severe) Current Visit: Yes Status: Acute Plan to address problem: likely due to underlying hypertensive nephrosclerosis. cont HD on TTS until significant renal recovery seen (4) Morbid obesity Current Visit: Yes Status: Acute (5) Vomiting with nausea, not intractable Current Visit: Yes Status: Acute Plan to address problem: work up as per GI Subjective Date of service: 01/11/18 Principal diagnosis: ESRD Interval history: Pt awake, alert, c/o chronic back pain, denies vomiting, abd pain this AM. no fever, chills, CP, SOB, palpitations reported. Objective - Vital Signs Vital signs: Vital Signs - 12hr 01/11/18 01/11/18 01/11/18 01:37 07:17 07:33 Temperature 97.9 F Pulse Rate 87 Respiratory 18 20 20 Rate Blood Pressure 131/80 O2 Sat by Pulse 98 Oximetry 01/11/18 07:47 Temperature Pulse Rate Respiratory 18 Rate Blood Pressure O2 Sat by Pulse Oximetry - General Appearance General appearance: well-developed, well-nourished, appears stated age, obese EENT: ATNC, PERRL, mucous membranes moist Neck: no JVD Respiratory: Present: Clear to Ascultation Cardiology: regular, S1S2 Gastrointestinal: normoactive bowel sounds, obese Integumentary: no rash, other (no pitting edema ) Neurologic: no focal deficit, alert and oriented x3, strength 5/5, CN 3-12 intact Psychiatric: mood/affect appropriate, cooperative - Lab 01/11/18 05:32 01/11/18 05:32 Most recent lab results Calcium 8.9 mg/dL (8.4-10.2) 01/11/18 05:32 Magnesium 1.70 mg/dL (1.7-2.3) 01/10/18 08:41
[2018-01-11] MEDS: PROTONIX PO SCH (13:25)
[2018-01-11] MEDS: BENTYL PO SCH ×5 (13:25→21:38)
[2018-01-11] MEDS: ROBAXIN PO SCH ×2 (13:25→21:38)
[2018-01-11] MEDS: ZOLOFT PO SCH (13:26)
[2018-01-11] MEDS: SODIUM BICARBONATE PO SCH ×2 (13:26→21:39)
[2018-01-11] MEDS: NORMODYNE PO SCH ×2 (13:26→21:38)
[2018-01-11] MEDS: NORVASC PO SCH (13:26)
[2018-01-11] MEDS: SODIUM CHLORIDE FLUSH SYRINGE 10 ML IV SCH ×2 (13:43→21:40)
--- NOTE | 2018-01-11 16:35 | Gastroenterology Progress Note ---
Assessment and Plan - Patient Problems (1) Vomiting with nausea, not intractable Current Visit: Yes Status: Acute Plan to address problem: - Despite intractable N/V the patient continues to weigh >250 pounds for several months. - She has had a scattered, but significant, workup over the last several years per the chart. - UGI today poor quality (patient not compliant with exam) but no gross HH, GERD , obstruction. - I would recommend d/c all PRN narcotics, and place her on a strict scheduled pain med regimen. - I would continue bentyl, but librax may be of better benefit (but I am hesitant to add to narcotics). - Significant weight loss, and improved control of DM/HTN strongly encouraged. - No further recommendations at present; patient may f/u in the clinic for further management. - Will sign off; please call if needed. (2) Generalized abdominal pain Current Visit: Yes Status: Acute (3) End stage renal disease on dialysis Current Visit: Yes Status: Acute (4) Morbid obesity Current Visit: Yes Status: Acute Subjective Date of service: 01/11/18 Principal diagnosis: N/V/Abdominal Pain Interval history: The patient has had no clinical change. States her stomach still hurts, but is eating dinner without emesis. Tolerated dialysis yesterday without issue. Objective - Constitutional Vitals: Temp Pulse Resp BP Pulse Ox 97.9 F 77 20 103/60 100 01/11/18 15:47 01/11/18 15:47 01/11/18 15:47 01/11/18 15:47 01/11/18 15:47 General appearance: no acute distress - Respiratory Respiratory effort: normal Respiratory: bilateral: CTA - Cardiovascular Rhythm: regular Heart Sounds: Present: S1 & S2 - Gastrointestinal General gastrointestinal: Present: soft, non-tender, non-distended - Labs CBC & Chem 7: 01/11/18 05:32 01/11/18 05:32 Labs: Laboratory Results - last 24 hr 01/10/18 01/10/18 01/10/18 11:29 18:51 21:55 WBC RBC Hgb Hct MCV MCH MCHC RDW Plt Count Lymph % (Auto) [place] % (Auto) Eos % (Auto) Baso % (Auto) Lymph # [place] # Eos # Baso # Seg Neutrophils % Seg Neutrophils # Sodium Potassium Chloride Carbon Dioxide Anion Gap BUN Creatinine Estimated GFR BUN/Creatinine Ratio Glucose POC Glucose 205 H 207 H 305 H Calcium Urine Color Urine Turbidity Urine pH Ur Specific [place] Urine Protein Urine Glucose (UA) Urine Ketones Urine Blood Urine Nitrite Urine Bilirubin Urine Urobilinogen Ur Leukocyte Esterase Urine WBC (Auto) Urine RBC (Auto) U Epithel Cells (Auto) Urine Mucus Urine Yeast (Budding) 01/10/18 01/10/18 01/11/18 22:18 Unknown 05:32 WBC 12.8 H RBC 2.86 L Hgb 7.5 L 7.6 L Hct 23.9 L 24.5 L MCV 86 MCH 27 L MCHC 31 RDW 16.9 H Plt Count 240 Lymph % (Auto) 16.9 [place] % (Auto) 5.6 Eos % (Auto) 0.7 Baso % (Auto) 0.4 Lymph # 2.2 [place] # 0.7 Eos # 0.1 Baso # 0.1 Seg Neutrophils % 76.4 H Seg Neutrophils # 9.7 H Sodium Potassium Chloride Carbon Dioxide Anion Gap BUN Creatinine Estimated GFR BUN/Creatinine Ratio Glucose POC Glucose Calcium Urine Color Yellow Urine Turbidity Clear Urine pH 5.0 Ur Specific [place] 1.016 Urine Protein <15 mg/dl Urine Glucose (UA) Neg Urine Ketones Neg Urine Blood Neg Urine Nitrite Neg Urine Bilirubin Neg Urine Urobilinogen < 2.0 Ur Leukocyte Esterase Tr Urine WBC (Auto) 6.0 Urine RBC (Auto) 51.0 U Epithel Cells (Auto) 3.0 Urine Mucus Few Urine Yeast (Budding) 3+ 01/11/18 01/11/18 05:32 06:31 WBC RBC Hgb Hct MCV MCH MCHC RDW Plt Count Lymph % (Auto) [place] % (Auto) Eos % (Auto) Baso % (Auto) Lymph # [place] # Eos # Baso # Seg Neutrophils % Seg Neutrophils # Sodium 138 Potassium 4.1 Chloride 94.2 L Carbon Dioxide 25 Anion Gap 23 BUN 20 H Creatinine 3.6 H Estimated GFR 17 BUN/Creatinine Ratio 6 Glucose 192 H POC Glucose 193 H Calcium 8.9 Urine Color Urine Turbidity Urine pH Ur Specific [place] Urine Protein Urine Glucose (UA) Urine Ketones Urine Blood Urine Nitrite Urine Bilirubin Urine Urobilinogen Ur Leukocyte Esterase Urine WBC (Auto) Urine RBC (Auto) U Epithel Cells (Auto) Urine Mucus Urine Yeast (Budding)
[2018-01-12] MEDS: DILAUDID IV PRN ×2 (04:00→08:55)
[2018-01-12] MEDS: ZOFRAN IV PRN ×3 (06:33→22:22)
[2018-01-12 06:43] LABS: Hemoglobin 7.5 gm/dl (10.1-14.3); Mean Corpuscular HGB Conc 31 % (30-34); Mean Corpuscular Hemoglobin 27 pg (28-32); Mean Corpuscular Volume 87 fl (79-97); Platelet Count 291 K/mm3 (140-440); Red Blood Count 2.76 M/mm3 (3.65-5.03)
[2018-01-12 07:05] LABS: Calcium 9.4 mg/dL (8.4-10.2)
[2018-01-12] MEDS ORDERED: PERCOCET 5/325 PO PRN (11:43)
--- NOTE | 2018-01-12 11:44 | Progress Note ---
Assessment and Plan Assessment and plan: Patient is a 42 year old female with hx of VIVI/CKD on HD, Spina bifida, chronic back pain and opiod dependence, ANEMIA With multiple GI work up in the past, Morbid obesity with weightloss from over 500 to 250 pounds and was recently discharged from the hospital after being started on HD presented today with complaints of Intractable nausea with vomiting and unrelenting back pain. She denies any chest pain, diarrhea, melana, hemotpysis or hematochzia. In the ER the patient was given pain meds with no relieve. Her vomiting is better but with nausea still persist and she is noted to have a hemoglobin to 6.4 VIVI ON CKD IV on HD * Progressive CKD to ESRD * Nephrology consult for continued dialysis Acute on Chronic Back pain/Chronic Opioid dependance syndrome * Gentle use of opioids. D.C prn meds. * oxycodone 10mg po q6hrs scheduled * NO PRN * discharge in AM Severe Anemia with symptoms * GI consult Noted * SB Flow through today * GI following * Improved with one unit PRBC, EPO on HD Secondary Coagulopathy * Monitor INR Interactable Nausea and vomiting * GI consulted, Zofran and Other medication use for nausea suppression * ?Regurgitation * Bentyl per GI and Hesistant on Librax Diabetic Mellitus * Insulin AND Accucheck Morbid Obesity * Patient already loosing weight Leukocytosis * Likely reactive. DVT/GI Plan of care discussed with patient, anticipate discharge in AM if Symptoms resolve - History Interval history: Patient seen and examined today, continues to complain of exacerbated back pain , no new nausea or vomiting noted. Hospitalist Physical - Physical exam Narrative exam: VITAL SIGNS: Reviewed. GENERAL: The patient appeared well nourished and normally developed. Morbidly obese appears uncomfortable Vital signs as documented. HEAD: No signs of head trauma. EYES: Pupils are equal. Extraocular motions intact. EARS: Hearing grossly intact. MOUTH: Oropharynx is normal. NECK: No adenopathy, no JVD. CHEST: Chest with clear breath sounds bilaterally. No wheezes, rales, or rhonchi. CARDIAC: Regular rate and rhythm. S1 and S2, without murmurs, gallops, or rubs. VASCULAR: No Edema. Peripheral pulses normal and equal in all extremities. ABDOMEN: Soft, without detectable tenderness. No sign of distention. No rebound or guarding, and no masses palpated. Bowel Sounds normal. MUSCULOSKELETAL: Good range of motion of all major joints. Extremities without clubbing, cyanosis or edema. NEUROLOGIC EXAM: Alert and oriented x 3. No focal sensory or strength deficits. Speech normal. Follows commands. PSYCHIATRIC: Mood normal. SKIN: No rash or lesions. - Constitutional Vitals: Temp Pulse Resp BP Pulse Ox 98.5 F 100 H 18 98/78 97 01/12/18 07:14 01/12/18 07:14 01/12/18 08:55 01/12/18 07:14 01/12/18 07:14 General appearance: Present: no acute distress, well-nourished, obese (morbid obesity) Results - Labs CBC & Chem 7: 01/12/18 05:17 01/12/18 05:17 Labs: Laboratory Last Values WBC 10.7 K/mm3 (4.5-11.0) 01/12/18 05:17 RBC 2.76 M/mm3 (3.65-5.03) L 01/12/18 05:17 Hgb 7.5 gm/dl (10.1-14.3) L 01/12/18 05:17 Hct 24.0 % (30.3-42.9) L 01/12/18 05:17 MCV 87 fl (79-97) 01/12/18 05:17 MCH 27 pg (28-32) L 01/12/18 05:17 MCHC 31 % (30-34) 01/12/18 05:17 RDW 17.0 % (13.2-15.2) H 01/12/18 05:17 Plt Count 291 K/mm3 (140-440) 01/12/18 05:17 Lymph % (Auto) 16.9 % (13.4-35.0) 01/11/18 05:32 [place] % (Auto) 5.6 % (0.0-7.3) 01/11/18 05:32 Eos % (Auto) 0.7 % (0.0-4.3) 01/11/18 05:32 Baso % (Auto) 0.4 % (0.0-1.8) 01/11/18 05:32 Lymph # 2.2 K/mm3 (1.2-5.4) 01/11/18 05:32 [place] # 0.7 K/mm3 (0.0-0.8) 01/11/18 05:32 Eos # 0.1 K/mm3 (0.0-0.4) 01/11/18 05:32 Baso # 0.1 K/mm3 (0.0-0.1) 01/11/18 05:32 Seg Neutrophils % 76.4 % (40.0-70.0) H 01/11/18 05:32 Seg Neutrophils # 9.7 K/mm3 (1.8-7.7) H 01/11/18 05:32 PT 15.7 Sec. (12.2-14.9) H 01/10/18 08:49 INR 1.18 (0.87-1.13) H 01/10/18 08:49 APTT 39.4 Sec. (24.2-36.6) H 01/10/18 08:49 Sodium 142 mmol/L (137-145) 01/12/18 05:17 Potassium 4.3 mmol/L (3.6-5.0) 01/12/18 05:17 Chloride 96.6 mmol/L (98-107) L 01/12/18 05:17 Carbon Dioxide 24 mmol/L (22-30) 01/12/18 05:17 Anion Gap 26 mmol/L 01/12/18 05:17 BUN 31 mg/dL (7-17) H 01/12/18 05:17 Creatinine 4.9 mg/dL (0.7-1.2) H 01/12/18 05:17 Estimated GFR 12 ml/min 01/12/18 05:17 BUN/Creatinine Ratio 6 % 01/12/18 05:17 Glucose 168 mg/dL (65-100) H 01/12/18 05:17 POC Glucose 170 (70-105) H 01/12/18 06:15 Calcium 9.4 mg/dL (8.4-10.2) 01/12/18 05:17 Magnesium 1.70 mg/dL (1.7-2.3) 01/10/18 08:41 Total Bilirubin 0.30 mg/dL (0.1-1.2) 01/10/18 08:41 Direct Bilirubin < 0.2 mg/dL (0-0.2) 01/10/18 08:41 Indirect Bilirubin 0.1 mg/dL 01/10/18 08:41 AST 8 units/L (5-40) 01/10/18 08:41 ALT < 5 units/L (7-56) L 01/10/18 08:41 Alkaline Phosphatase 84 units/L (35-129) 01/10/18 08:41 NT-Pro-B Natriuret Pep 453.4 pg/mL (0-450) H 01/10/18 08:41 Total Protein 7.6 g/dL (6.3-8.2) 01/10/18 08:41 Albumin 3.4 g/dL (3.9-5) L 01/10/18 08:41 Albumin/Globulin Ratio 0.8 % 01/10/18 08:41 Urine Color Yellow (Yellow) 01/10/18 Unknown Urine Turbidity Clear (Clear) 01/10/18 Unknown Urine pH 5.0 (5.0-7.0) 01/10/18 Unknown Ur Specific [place] 1.016 (1.003-1.030) 01/10/18 Unknown Urine Protein <15 mg/dl mg/dL (Negative) 01/10/18 Unknown Urine Glucose (UA) Neg mg/dL (Negative) 01/10/18 Unknown Urine Ketones Neg mg/dL (Negative) 01/10/18 Unknown Urine Blood Neg (Negative) 01/10/18 Unknown Urine Nitrite Neg (Negative) 01/10/18 Unknown Urine Bilirubin Neg (Negative) 01/10/18 Unknown Urine Urobilinogen < 2.0 mg/dL (<2.0) 01/10/18 Unknown Ur Leukocyte Esterase Tr (Negative) 01/10/18 Unknown Urine WBC (Auto) 6.0 /HPF (0.0-6.0) 01/10/18 Unknown Urine RBC (Auto) 51.0 /HPF (0.0-6.0) 01/10/18 Unknown U Epithel Cells (Auto) 3.0 /HPF (0-13.0) 01/10/18 Unknown Urine Mucus Few /HPF 01/10/18 Unknown Urine Yeast (Budding) 3+ /HPF 01/10/18 Unknown Blood Type O POSITIVE 01/10/18 08:49 Antibody Screen Negative 01/10/18 08:49 Crossmatch See Detail 01/10/18 08:49
[2018-01-12] MEDS ORDERED: NACL 0.9 (PRIMING MACHINE ONLY DIALYSIS) MC ONE (14:15)
[2018-01-12] MEDS: NORVASC PO SCH (14:48)
[2018-01-12] MEDS: BENTYL PO SCH ×5 (14:48→23:40)
[2018-01-12] MEDS: SODIUM BICARBONATE PO SCH ×3 (14:48→23:42)
[2018-01-12] MEDS: ZOLOFT PO SCH (14:48)
[2018-01-12] MEDS: PROTONIX PO SCH (14:49)
[2018-01-12] MEDS: NORMODYNE PO SCH ×3 (14:49→23:41)
[2018-01-12] MEDS: ROBAXIN PO SCH ×3 (14:49→23:46)
[2018-01-12] MEDS: SODIUM CHLORIDE FLUSH SYRINGE 10 ML IV SCH ×2 (14:50→22:29)
[2018-01-12] MEDS: OxyCONTIN PO SCH ×3 (14:50→23:39)
--- NOTE | 2018-01-12 15:36 | Progress Note ---
Assessment and Plan - Patient Problems (1) Acute kidney injury superimposed on chronic kidney disease Current Visit: No Status: Acute Plan to address problem: No sign of renal recovery yet. Patient may have progressed to end-stage renal disease. (2) Chronic renal insufficiency, stage IV (severe) Current Visit: Yes Status: Acute Plan to address problem: Presumably secondary to diabetic nephropathy/hypertensive nephrosclerosis. (3) Hypertensive chronic kidney disease with stage 5 chronic kidney disease or end stage renal disease Current Visit: Yes Status: Acute Plan to address problem: Follow blood pressure on current medications (4) Morbid obesity Current Visit: Yes Status: Acute Plan to address problem: Long-term management with weight loss (5) Intractable nausea and vomiting Current Visit: No Status: Acute Qualifiers: Vomiting type: unspecified Qualified Code(s): R11.2 - Nausea with vomiting , unspecified Plan to address problem: Continue management by sample steamer/primary attending (6) Type 2 diabetes mellitus, uncontrolled Current Visit: No Status: Chronic Plan to address problem: Blood sugar management by primary attending Subjective Date of service: 01/12/18 Principal diagnosis: N/V/Abdominal Pain Interval history: Patient seen sitting up in bed. Vomiting copious watery fluid. She states "I want my Dilaudid for my back pain". Objective - Exam Narrative Exam: Morbidly obese -[place] female lying in bed in no acute distress HEENT: NCAT, Neck: Supple, no venous distention CVS: S1S2 RRR with no murmur, rub or gallop Chest: Clear to auscultation Abdomen: Protuberant, soft, nontender, no organomegaly, bowel sounds are present Extremities: No edema Neuro: Awake, alert no focal deficits - Vital Signs Vital signs: Vital Signs - 12hr 01/12/18 01/12/18 01/12/18 07:14 08:30 08:55 Temperature 98.5 F 98.5 F Pulse Rate 100 H 93 H Respiratory 18 18 18 Rate Blood Pressure 98/78 150/107 O2 Sat by Pulse 97 Oximetry 01/12/18 01/12/18 01/12/18 10:55 11:00 11:15 Temperature Pulse Rate 83 101 H 85 Respiratory Rate Blood Pressure 151/122 148/125 147/113 O2 Sat by Pulse Oximetry 01/12/18 01/12/18 01/12/18 11:30 11:45 12:00 Temperature Pulse Rate 101 H 97 H 97 H Respiratory Rate Blood Pressure 92/76 102/78 104/58 O2 Sat by Pulse Oximetry 01/12/18 01/12/18 01/12/18 12:15 12:30 12:45 Temperature Pulse Rate 97 H 111 H 108 H Respiratory Rate Blood Pressure 124/78 124/99 122/98 O2 Sat by Pulse Oximetry 01/12/18 01/12/18 01/12/18 13:00 13:15 13:30 Temperature Pulse Rate 83 88 84 Respiratory Rate Blood Pressure 117/76 122/76 124/76 O2 Sat by Pulse Oximetry 01/12/18 01/12/18 01/12/18 14:48 14:49 14:50 Temperature Pulse Rate 84 84 Respiratory 18 Rate Blood Pressure 124/76 124/76 O2 Sat by Pulse Oximetry - Lab 01/12/18 05:17 01/12/18 05:17 Most recent lab results Calcium 9.4 mg/dL (8.4-10.2) 01/12/18 05:17 Magnesium 1.70 mg/dL (1.7-2.3) 01/10/18 08:41
[2018-01-12] MEDS ORDERED: NORCO PO PRN (15:58)
[2018-01-12] MEDS ORDERED: DURAGESIC TD SCH (16:30)
[2018-01-12] MEDS: HEPARIN IV PRN (16:52)
[2018-01-13 08:54] VITALS: BP 125/74
[2018-01-13] MEDS: BENTYL PO SCH ×2 (10:41→17:53)
[2018-01-13] MEDS: NORMODYNE PO SCH (10:41)
[2018-01-13] MEDS: NORVASC PO SCH (10:41)
[2018-01-13] MEDS: OxyCONTIN PO SCH (10:41)
[2018-01-13] MEDS: ROBAXIN PO SCH (10:42)
[2018-01-13] MEDS: ZOLOFT PO SCH (10:42)
[2018-01-13] MEDS: PROTONIX PO SCH (10:42)
[2018-01-13] MEDS: ZOFRAN IV PRN (10:50)
[2018-01-13] MEDS: SODIUM CHLORIDE FLUSH SYRINGE 10 ML IV SCH (10:51)
[2018-01-13] MEDS: SODIUM BICARBONATE PO SCH (10:51)
--- NOTE | 2018-01-13 11:41 | Discharge Summary ---
Providers - Providers Date of Admission: 01/10/18 08:57 Attending physician: IBRAHIMA EL MD 01/10/18 08:48 Consult to PICC Line RN [CONS] Routine Reason For Exam: NO IV ACCESS Type Line:: Midline 01/10/18 08:57 Consult to Physician [CONS] Routine Comment: Consulting Provider: RIAZ LAFLEUR Physician Instructions: Reason For Exam: esrd 01/10/18 09:37 Consult to Physician [CONS] Routine Comment: Consulting Provider: JOHN GREENE Physician Instructions: Reason For Exam: interactable nausea with vomiting, anemia Primary care physician: POKER IN Hospitalization Reason for admission: gastritis Condition: Stable Hospital course: Patient is a 42 year old female with hx of VIVI/CKD on HD, Spina bifida, chronic back pain and opiod dependence, ANEMIA With multiple GI work up in the past, Morbid obesity with weightloss from over 500 to 250 pounds and was recently discharged from the hospital after being started on HD presented today with complaints of Intractable nausea with vomiting and unrelenting back pain. She denies any chest pain, diarrhea, melana, hemotpysis or hematochzia. In the ER the patient was given pain meds with no relieve. Her vomiting is better but with nausea still persist and she is noted to have a hemoglobin to 6.4. Patient received 1 unit packed cells. GI was consulted small bowel follow through was done patient was uncooperative although not gross abnormality was noted. Patient is on multiple GI workup in the past for this point and recommended a workup in the [place] septum discussed with the patient and also for her chronic back pain which is not amendable to any other medication except IV Dilaudid which unfortunately wearing short supply of. She is refusing to take her by mouth medications except her nausea medicine. Bentyl was also recommended by GI. I have discussed with the patient that there is some very great need of close follow-up with [facility]. With dialysis center and can be discharged today. Discharge diagnosis VIVI ON CKD IV on HD Acute on Chronic Back pain/Chronic Opioid dependance syndrome Severe Anemia with symptoms Secondary Coagulopathy Interactable Nausea and vomiting Diabetic Mellitus Morbid Obesity Leukocytosis Disposition: - TO HOME OR SELFCARE Time spent for discharge: 35 mins Core Measure Documentation - Palliative Care Palliative Care/ Comfort Measures: Not Applicable - Core Measures Any of the following diagnoses?: none - VTE Discharge Requirements Deep Vein Thrombosis/Pulmonary Embolism Present on Admission: No Exam - Physical Exam Narrative exam: VITAL SIGNS: Reviewed. GENERAL: The patient appeared well nourished and normally developed. Morbidly obese appears uncomfortable Vital signs as documented. HEAD: No signs of head trauma. EYES: Pupils are equal. Extraocular motions intact. EARS: Hearing grossly intact. MOUTH: Oropharynx is normal. NECK: No adenopathy, no JVD. CHEST: Chest with clear breath sounds bilaterally. No wheezes, rales, or rhonchi. CARDIAC: Regular rate and rhythm. S1 and S2, without murmurs, gallops, or rubs. VASCULAR: No Edema. Peripheral pulses normal and equal in all extremities. ABDOMEN: Soft, without detectable tenderness. No sign of distention. No rebound or guarding, and no masses palpated. Bowel Sounds normal. MUSCULOSKELETAL: Good range of motion of all major joints. Extremities without clubbing, cyanosis or edema. NEUROLOGIC EXAM: Alert and oriented x 3. No focal sensory or strength deficits. Speech normal. Follows commands. PSYCHIATRIC: Mood normal. SKIN: No rash or lesions. - Constitutional Vitals: Temp Pulse Resp BP Pulse Ox 98.8 F 79 20 125/74 97 01/13/18 07:26 01/13/18 10:41 01/13/18 07:26 01/13/18 10:41 01/13/18 07:26 Plan Activity: advance as tolerated, fall precautions Diet: renal Special Instructions: record daily weights, record daily BP diary, record blood sugar diary Follow up with: REI DUPREE MD [Primary Care Provider] - 3-5 Days MALCOLM CANNON MD [Staff Physician] - 7 Days Prescriptions: Insulin NPH/Regular [NovoLIN 70/30] 30 unit SUB-Q QAMDIAB #1 units Ondansetron [Zofran ODT TAB] 8 mg PO Q8HR PRN #30 tab.rapdis PRN Reason: Nausea And Vomiting
--- NOTE | 2018-01-13 15:22 | Progress Note ---
Assessment and Plan - Patient Problems (1) Acute kidney injury superimposed on chronic kidney disease Current Visit: No Status: Acute Plan to address problem: No sign of renal recovery yet. Patient may have progressed to end-stage renal disease. Outpatient dialysis has been arranged at [facility]. Follow up at the dialysis clinic (2) Chronic renal insufficiency, stage IV (severe) Current Visit: Yes Status: Acute Plan to address problem: Presumably secondary to diabetic nephropathy/hypertensive nephrosclerosis. (3) Hypertensive chronic kidney disease with stage 5 chronic kidney disease or end stage renal disease Current Visit: Yes Status: Acute Plan to address problem: Follow blood pressure on current medications (4) Morbid obesity Current Visit: Yes Status: Acute Plan to address problem: Long-term management with weight loss (5) Intractable nausea and vomiting Current Visit: No Status: Acute Qualifiers: Vomiting type: unspecified Qualified Code(s): R11.2 - Nausea with vomiting , unspecified Plan to address problem: Continue management by compo caster/primary attending (6) Type 2 diabetes mellitus, uncontrolled Current Visit: No Status: Chronic Plan to address problem: Blood sugar management by primary attending Subjective Date of service: 01/13/18 Principal diagnosis: N/V/Abdominal Pain Interval history: Patient seen sitting up in bed. is at the bedside. She is calm this morning. Has no complaints Objective - Exam Narrative Exam: Morbidly obese -[place] Citizen female lying in bed in no acute distress HEENT: NCAT, Neck: Supple, no venous distention CVS: S1S2 RRR with no murmur, rub or gallop Chest: Clear to auscultation Abdomen: obese, soft, nontender, no organomegaly, bowel sounds are present Extremities: No edema, hyperpigmentation Neuro: Awake, alert no focal deficits - Vital Signs Vital signs: Vital Signs - 12hr 01/13/18 01/13/18 07:26 10:41 Temperature 98.8 F Pulse Rate 79 79 Respiratory 20 Rate Blood Pressure 125/74 125/74 O2 Sat by Pulse 97 Oximetry - Lab 01/12/18 05:17 01/12/18 05:17 Most recent lab results Calcium 9.4 mg/dL (8.4-10.2) 01/12/18 05:17 Magnesium 1.70 mg/dL (1.7-2.3) 01/10/18 08:41
== END 2018-01-13 16:30 | disposition home or self-care (01) | DRG 683 ==
LOC: ED 04:51 → 3A 08:57
PROVIDERS: ADMIT Internal Medicine; ATTEND Internal Medicine
PROC: 02HV33Z Insertion of Infusion Device into Superior Vena Cava, Percutaneous Approach (ICD-10-PCS; principal; 2018-01-10)
PROC: 5A1D70Z Performance of Urinary Filtration, Intermittent, Less than 6 Hours Per Day (ICD-10-PCS; 2018-01-10)
PROC: 30233N1 Transfusion of Nonautologous Red Blood Cells into Peripheral Vein, Percutaneous Approach (ICD-10-PCS; 2018-01-10)
PROC: 5A1D70Z Performance of Urinary Filtration, Intermittent, Less than 6 Hours Per Day (ICD-10-PCS; 2018-01-12)
DX: N17.0 Acute kidney failure with tubular necrosis (principal); I13.2 Hypertensive heart and chronic kidney disease with heart failure and with stage 5 chronic kidney disease, or end stage renal disease; D68.9 Coagulation defect, unspecified; Z68.42 Body mass index [BMI] 45.0-49.9, adult; N18.6 End stage renal disease; E87.5 Hyperkalemia; E66.01 Morbid (severe) obesity due to excess calories; E11.22 Type 2 diabetes mellitus with diabetic chronic kidney disease; I50.9 Heart failure, unspecified; J45.909 Unspecified asthma, uncomplicated; E11.43 Type 2 diabetes mellitus with diabetic autonomic (poly)neuropathy; K31.84 Gastroparesis; G89.4 Chronic pain syndrome; D72.829 Elevated white blood cell count, unspecified; Z99.2 Dependence on renal dialysis; Z90.49 Acquired absence of other specified parts of digestive tract; Z88.8 Allergy status to other drugs, medicaments and biological substances; Z88.6 Allergy status to analgesic agent; Z79.4 Long term (current) use of insulin; Z79.899 Other long term (current) drug therapy; Q05.9 Spina bifida, unspecified; Z79.51 Long term (current) use of inhaled steroids
CPT/HCPCS: 36415; 36430; 71045; 74247; 80048; 80053; 80074; 81001; 82962; 83735; 83880; 85014; 85018; 85025; 85027; 85610; 85730; 86850; 86900; 86901; 86920; 93005; 93010; 96372; J0885; J1170; J1200; J1644; J1815; J2270; J2405; J7030; P9016; Q0162; Q0169

== ENCOUNTER 2018-01-28 06:53 | Inpatient (IN) | payer MEDICAID ==
[2018-01-28] MEDS ORDERED: BENADRYL IV ONE ×2 (09:37→12:18)
[2018-01-28] MEDS ORDERED: DILAUDID IV ONE ×2 (09:37→12:18)
[2018-01-28] MEDS ORDERED: ZOFRAN IV ONE (09:37)
--- NOTE | 2018-01-28 09:41 | Emergency Department Report ---
ED Abdominal Pain HPI - General Chief Complaint: Abdominal Pain Stated Complaint: ABDOMINAL,BACK PAIN Time Seen by Provider: 01/28/18 09:30 Source: patient, EMS Mode of arrival: Wheelchair Limitations: No Limitations - History of Present Illness Initial Comments: Patient is 42 years old female history of morbid obesity, and decision indices on hemodialysis, patient stated that she did not finish dialysis on Sunday. Patient has history of chronic back pain and his spina bifida. Patient presented to the ER chief complaint of generalized abdominal pain and back pain. Patient stated that her pain is similar to her previous episodes. She denied any fever, cough or shortness of breath. MD Complaint: abdominal pain Location: diffuse Migration to: no migration Severity: moderate Quality: sharp Associated Symptoms: nausea - Related Data Home Medications Medication Instructions Recorded Confirmed Last Taken Insulin NPH Hum/Reg Insulin Hm 40 unit SQ QPM 10/05/15 01/10/18 Unknown [HumuLIN 70-30 Vial] Sertraline [Zoloft] 100 mg PO QDAY 10/05/15 01/10/18 Unknown methOCARBAMOL [Robaxin TAB] 500 mg PO BID 07/18/16 01/10/18 Unknown Previous Rx's Medication Instructions Recorded Last Taken Type Pantoprazole [Protonix TAB] 40 mg PO QDAY #30 tablet 09/06/16 Unknown Rx Labetalol [Normodyne TAB] 100 mg PO BID #60 tablet 09/09/16 Unknown Rx Metoclopramide [Reglan TAB] 10 mg PO TID PRN #20 tab 09/13/16 Unknown Rx Dicyclomine [Bentyl] 20 mg PO QID #30 tablet 01/28/17 Unknown Rx ALBUTEROL NEB's [Proventil 0.083% 2.5 mg IH Q3HRT PRN #30 nebu 04/11/17 Unknown Rx NEBS] Sodium Bicarbonate 650 mg PO BID #60 tablet 04/11/17 Unknown Rx oxyCODONE /ACETAMINOPHEN [Percocet 1 tab PO Q4H PRN #30 tablet 04/11/17 Unknown Rx 5/325 mg] Promethazine [Phenergan TAB] 25 mg PO Q8HR PRN #30 tab 01/08/18 Unknown Rx amLODIPine [Norvasc] 5 mg PO QDAY #30 tablet 01/08/18 Unknown Rx Insulin NPH/Regular [NovoLIN 70/30] 30 unit SUB-Q QAMDIAB #1 units 01/13/18 Unknown Rx Ondansetron [Zofran ODT TAB] 8 mg PO Q8HR PRN #30 tab.rapdis 01/13/18 Unknown Rx Allergies Allergy/AdvReac Type Severity Reaction Status Date / Time ketorolac tromethamine Allergy Unknown Verified 08/16/17 05:28 [From Toradol] meperidine HCl [From Demerol] Allergy Shortness Verified 08/16/17 05:28 of Breath ED Review of Systems ROS: Stated complaint: ABDOMINAL,BACK PAIN Other details as noted in HPI Comment: All other systems reviewed and negative Constitutional: denies: chills, fever Respiratory: denies: cough, orthopnea, shortness of breath, SOB with exertion, SOB at rest, wheezing Cardiovascular: denies: chest pain, palpitations, dyspnea on exertion Gastrointestinal: abdominal pain, nausea. denies: vomiting, diarrhea, constipation, hematemesis, hematochezia Genitourinary: denies: urgency Neurological: denies: headache, weakness, numbness, paresthesias, confusion, abnormal gait ED Past Medical Hx - Past Medical History Previous Medical History?: Yes Hx Hypertension: Yes Hx CVA: No Hx Heart Attack/AMI: No Hx Congestive Heart Failure: Yes Hx Diabetes: Yes Hx Deep Vein Thrombosis: No Hx Pulmonary Embolism: No Hx GERD: No Hx Liver Disease: No Hx Renal Disease: No Hx Sickle Cell Disease: No Hx Arthritis: No Hx Headaches / Migraines: No Hx Seizures: No Hx Kidney Stones: No Hx Psychiatric Treatment: No Hx Asthma: Yes Hx COPD: No Hx Dementia: No Hx HIV: No Additional medical history: spina bifida, Gastroparesis. morbid obesity, home oxygen @ 3LPM nasal cannula - Surgical History Past Surgical History?: Yes Hx Coronary Stent: No Hx Open Heart Surgery: No Hx Pacemaker: No Hx Internal Defibrillator: No Hx Cholecystectomy: Yes Hx Appendectomy: Yes Hx Breast Surgery: Yes (breast reduction) Additional Surgical History: Right chest port-discontinued - Social History Smoking Status: Never Smoker Substance Use Type: Prescribed - Medications Home Medications: Home Medications Medication Instructions Recorded Confirmed Last Taken Type Insulin NPH Hum/Reg Insulin Hm 40 unit SQ QPM 10/05/15 01/10/18 Unknown History [HumuLIN 70-30 Vial] Sertraline [Zoloft] 100 mg PO QDAY 10/05/15 01/10/18 Unknown History methOCARBAMOL [Robaxin TAB] 500 mg PO BID 07/18/16 01/10/18 Unknown History Pantoprazole [Protonix TAB] 40 mg PO QDAY #30 tablet 09/06/16 01/10/18 Unknown Rx Labetalol [Normodyne TAB] 100 mg PO BID #60 tablet 09/09/16 01/10/18 Unknown Rx Metoclopramide [Reglan TAB] 10 mg PO TID PRN #20 tab 09/13/16 01/10/18 Unknown Rx Dicyclomine [Bentyl] 20 mg PO QID #30 tablet 01/28/17 01/10/18 Unknown Rx ALBUTEROL NEB's [Proventil 0.083% 2.5 mg IH Q3HRT PRN #30 nebu 04/11/17 Unknown Rx NEBS] Sodium Bicarbonate 650 mg PO BID #60 tablet 04/11/17 01/10/18 Unknown Rx oxyCODONE /ACETAMINOPHEN [Percocet 1 tab PO Q4H PRN #30 tablet 04/11/17 Unknown Rx 5/325 mg] Promethazine [Phenergan TAB] 25 mg PO Q8HR PRN #30 tab 01/08/18 01/10/18 Unknown Rx amLODIPine [Norvasc] 5 mg PO QDAY #30 tablet 01/08/18 01/10/18 Unknown Rx Insulin NPH/Regular [NovoLIN 70/30] 30 unit SUB-Q QAMDIAB #1 units 01/13/18 Unknown Rx Ondansetron [Zofran ODT TAB] 8 mg PO Q8HR PRN #30 tab.rapdis 01/13/18 Unknown Rx ED Physical Exam - General Limitations: No Limitations General appearance: alert, in no apparent distress - Head Head exam: Present: atraumatic, normocephalic - Eye Eye exam: Present: normal appearance - ENT ENT exam: Present: normal exam, normal orophraynx, mucous membranes moist - Neck Neck exam: Present: normal inspection, full ROM. Absent: tenderness, meningismus, lymphadenopathy, thyromegaly - Respiratory Respiratory exam: Present: normal lung sounds bilaterally. Absent: respiratory distress, wheezes, rales, rhonchi, chest wall tenderness - Cardiovascular Cardiovascular Exam: Present: regular rate, normal rhythm, normal heart sounds. Absent: bradycardia, tachycardia, irregular rhythm - GI/Abdominal GI/Abdominal exam: Present: soft, normal bowel sounds. Absent: distended, tenderness, guarding, rebound, rigid, organomegaly, mass - Extremities Exam Extremities exam: Present: normal inspection, full ROM, normal capillary refill - Back Exam Back exam: Present: normal inspection, full ROM. Absent: tenderness, CVA tenderness (R), CVA tenderness (L) - Neurological Exam Neurological exam: Present: alert, oriented X3, CN II-XII intact - Skin Skin exam: Present: warm, intact, normal color ED Course Vital Signs 01/28/18 01/28/18 01/28/18 07:23 09:17 09:30 Temperature 98.3 F Pulse Rate 100 H 105 H Respiratory 18 15 Rate Blood Pressure 140/100 129/81 120/89 O2 Sat by Pulse 96 Oximetry 01/28/18 01/28/18 01/28/18 09:45 10:01 10:15 Temperature Pulse Rate 102 H 94 H 103 H Respiratory 11 L 11 L 7 L Rate Blood Pressure 129/81 137/86 137/86 O2 Sat by Pulse Oximetry 01/28/18 01/28/18 01/28/18 10:30 10:45 11:00 Temperature Pulse Rate 90 89 89 Respiratory 13 13 13 Rate Blood Pressure 144/86 144/86 149/78 O2 Sat by Pulse Oximetry 01/28/18 01/28/18 01/28/18 11:57 12:00 12:15 Temperature Pulse Rate 98 H 105 H 93 H Respiratory 13 13 7 L Rate Blood Pressure 146/98 146/96 146/96 O2 Sat by Pulse Oximetry 01/28/18 01/28/18 12:30 12:45 Temperature Pulse Rate 104 H 91 H Respiratory 10 L 10 L Rate Blood Pressure 146/96 146/96 O2 Sat by Pulse Oximetry - Reevaluation(s) Reevaluation #1: 01/28/18 13:03 I discuss patient with Dr. Rice, inform about the patient. He stated that he will follow-up with the patient in the hospital. ED Medical Decision Making - Lab Data Result diagrams: 01/28/18 10:00 01/28/18 10:00 - Radiology Data Radiology results: report reviewed Referring Physician: MOISÉS DIAZ Patient Name: YULIA WISE Date of : 1975 Sex: Female Report Date: 2018-01-28 Report Status: Finalized Findings [facility] [address] [place] [address] Cat Scan Report Signed Patient: YULIA WISE MR#: [id number] : 1975 Acct:[id number] Age/Sex: 42 / F ADM Date: 01/28/18 Loc: ED Attending Dr: Ordering Physician: MOISÉS DIAZ Date of Service: 01/28/18 Procedure(s): CT abdomen pelvis wo con Accession Number(s): [id number] cc: MOISÉS DIAZ CT ABDOMEN AND PELVIS WITHOUT CONTRAST INDICATION: Abdominal pain. COMPARISON: 11/24/2017 FINDINGS: Noncontrast abdomen and pelvis CT performed. LUNG BASES: Mild bilateral lower lobe new air space opacities/infiltrates with slight right middle lobe haziness as well. No effusions. Nonspecific distal esophageal wall prominence/thickening, not excluded for gastroesophageal reflux and/or hiatal hernia, amongst others. ABDOMEN: Please note that sensitivity to detect small visceral lesions is limited due to the absence of intravenous or oral contrast. Left hepatic lobe tip again extends into the left upper quadrant. Stable cholecystectomy clips, approximately 1.5 cm hypodense right adrenal medial limb nodule measuring 21 HU, axial image 46, series 2. Nonobstructing left upper renal pole calcifications also noted on axial images 52-58 measuring up to 0.6 cm. Otherwise grossly unremarkable unenhanced liver, spleen, pancreas, left adrenal, aorta, IVC and kidneys. Nonopacified GI tract evaluation limited, though grossly nonobstructive. Stable appendectomy changes and a fat containing umbilical hernia with transverse neck of 1.3 cm. No ascites. Few small, predominantly subcentimeter mesenteric and retroperitoneal lymph nodes again noted with the largest left para-aortic 1.1 x 0.7 cm lymph node, axial image 82. PELVIS: Interval resolution of left adnexal/ovarian cyst with grossly unremarkable uterine, urinary bladder and rectosigmoid CT appearance. Few small pelvic phleboliths. No free fluid or significant adenopathy. Bilateral inguinal canal region fatty prominence again noted as on axial image 186. Mild multilevel spinal degenerative changes as spurring, lumbar facet arthropathy and bilateral SI joint degeneration with iliac aspect sclerosis. CONCLUSION: 1. New bibasilar air space opacities/pneumonias. 2. Various other findings as distal esophageal thickening, cholecystectomy, appendectomy, right adrenal possible adenoma, nonobstructing left nephrolithiasis, fat-containing umbilical hernia and few bony degenerative changes, amongst others, as detailed above. Thank you for the opportunity to participate in this patient's care. Transcribed By: RS Dictated By: PEDRO LUIS HARRELL MD Electronically Authenticated By: PEDRO LUIS HARRELL MD Signed Date/Time: 01/28/18 1152 DD/ 1140 TD/TT: 01/28/18 1152 - Medical Decision Making I discussed the patient is Dr. Quesada, he agreed to admit the patient to his service. Critical care attestation.: If time is entered above; I have spent that time in minutes in the direct care of this critically ill patient, excluding procedure time. ED Disposition Clinical Impression: Abdominal pain, Shortness of breath, Pneumonia of both lower lobes, End stage renal disease on dialysis Disposition: OP ADMIT IP TO THIS HOSP Is pt being admited?: Yes Condition: Stable Instructions: Bacterial Pneumonia (ED), Abdominal Pain (ED) Referrals: PRIMARY CARE, [Primary Care Provider] - 3-5 Days
--- NOTE | 2018-01-28 09:59 | XRay Report ---
CHEST ONE VIEW INDICATION: Chest pain. COMPARISON: 01/10/2018. FINDINGS: Portable, single, frontal chest radiograph demonstrates normal cardiomediastinal silhouette. Stable right-sided central catheter. Slightly crowded lung markings centrally. Stable bones. Extrinsic EKG leads. CONCLUSION: Slightly crowded lung markings/slight peribronchial thickening, as described. Please correlate. Thank you for the opportunity to participate in this patient's care.
[2018-01-28 10:31] LABS: Basophils % (Auto) 0.1 % (0.0-1.8); Eosinophils # (Auto) 0.1 K/mm3 (0.0-0.4); Eosinophils % (Auto) 1.2 % (0.0-4.3); Hematocrit 21.5 % (30.3-42.9); Hemoglobin 6.9 gm/dl (10.1-14.3); Lymphocytes # (Auto) 2.2 K/mm3 (1.2-5.4); Lymphocytes % (Auto) 23.4 % (13.4-35.0); Mean Corpuscular HGB Conc 32 % (30-34); Mean Corpuscular Hemoglobin 28 pg (28-32); Mean Corpuscular Volume 87 fl (79-97); Monocytes # (Auto) 0.5 K/mm3 (0.0-0.8); Monocytes % (Auto) 4.7 % (0.0-7.3); Platelet Count 397 K/mm3 (140-440); Red Blood Count 2.46 M/mm3 (3.65-5.03); Red Cell Distribution Width 18.1 % (13.2-15.2)
[2018-01-28 10:45] LABS: Albumin 3.3 g/dL (3.9-5); BUN/Creatinine Ratio 10; Blood Urea Nitrogen 23 mg/dL (7-17); Hemolysis Index 7; Lipase 62 units/L (13-60)
[2018-01-28 10:47] LABS: Alanine Aminotransferase < 5 units/L (7-56)
--- NOTE | 2018-01-28 11:58 | Cat Scan Report ---
CT ABDOMEN AND PELVIS WITHOUT CONTRAST INDICATION: Abdominal pain. COMPARISON: 11/24/2017 FINDINGS: Noncontrast abdomen and pelvis CT performed. LUNG BASES: Mild bilateral lower lobe new air space opacities/infiltrates with slight right middle lobe haziness as well. No effusions. Nonspecific distal esophageal wall prominence/thickening, not excluded for gastroesophageal reflux and/or hiatal hernia, amongst others. ABDOMEN: Please note that sensitivity to detect small visceral lesions is limited due to the absence of intravenous or oral contrast. Left hepatic lobe tip again extends into the left upper quadrant. Stable cholecystectomy clips, approximately 1.5 cm hypodense right adrenal medial limb nodule measuring 21 HU, axial image 46, series 2. Nonobstructing left upper renal pole calcifications also noted on axial images 52-58 measuring up to 0.6 cm. Otherwise grossly unremarkable unenhanced liver, spleen, pancreas, left adrenal, aorta, IVC and kidneys. Nonopacified GI tract evaluation limited, though grossly nonobstructive. Stable appendectomy changes and a fat containing umbilical hernia with transverse neck of 1.3 cm. No ascites. Few small, predominantly subcentimeter mesenteric and retroperitoneal lymph nodes again noted with the largest left para-aortic 1.1 x 0.7 cm lymph node, axial image 82. PELVIS: Interval resolution of left adnexal/ovarian cyst with grossly unremarkable uterine, urinary bladder and rectosigmoid CT appearance. Few small pelvic phleboliths. No free fluid or significant adenopathy. Bilateral inguinal canal region fatty prominence again noted as on axial image 186. Mild multilevel spinal degenerative changes as spurring, lumbar facet arthropathy and bilateral SI joint degeneration with iliac aspect sclerosis. CONCLUSION: 1. New bibasilar air space opacities/pneumonias. 2. Various other findings as distal esophageal thickening, cholecystectomy, appendectomy, right adrenal possible adenoma, nonobstructing left nephrolithiasis, fat-containing umbilical hernia and few bony degenerative changes, amongst others, as detailed above. Thank you for the opportunity to participate in this patient's care.
[2018-01-28] MEDS ORDERED: LEVAQUIN 500MG/100ML 500 MG/100 ML BAG IV ONE (12:33)
--- NOTE | 2018-01-28 12:43 | History and Physical Report ---
History of Present Illness Chief complaint: Im hurting History of present illness: 42 YO Female year old female with DM, HTN, ESRD on HD (T,R,Sa), MO, CHF, Spina bifida, Chronic back pain and opiod dependence, ANEMIA , Gastroparesis presents to ED for evaluation. Pt states that she has experienced confusion, as well as pain in her back and abdomen which prevented her from completing dialysis on sunday. Pt denies fever, chills, CP, Palpitations, hemoptysis, NVD, syncope, trauma, BRBPR, Pt seen and evaluted in ED and found to have bilateral pneumonia. Pt admitted to medical floor. Nephrology consulted in ED. Past History Past Medical History: diabetes, ESRD, heart failure, hypertension Past Surgical History: appendectomy, cholecystectomy, Other (Breast surgery, Right Chest Port) Social history: , lives with family. denies: smoking, alcohol abuse, prescription drug abuse Family history: diabetes, hypertension Medications and Allergies Allergies Allergy/AdvReac Type Severity Reaction Status Date / Time ketorolac tromethamine Allergy Unknown Verified 08/16/17 05:28 [From Toradol] meperidine HCl [From Demerol] Allergy Shortness Verified 08/16/17 05:28 of Breath Home Medications Medication Instructions Recorded Confirmed Last Taken Type Insulin NPH Hum/Reg Insulin Hm 40 unit SQ QPM 10/05/15 01/28/18 Unknown History [HumuLIN 70-30 Vial] Sertraline [Zoloft] 100 mg PO QDAY 10/05/15 01/28/18 Unknown History methOCARBAMOL [Robaxin TAB] 500 mg PO BID 07/18/16 01/28/18 Unknown History Pantoprazole [Protonix TAB] 40 mg PO QDAY #30 tablet 09/06/16 01/28/18 Unknown Rx Labetalol [Normodyne TAB] 100 mg PO BID #60 tablet 09/09/16 01/28/18 Unknown Rx Metoclopramide [Reglan TAB] 10 mg PO TID PRN #20 tab 09/13/16 01/28/18 Unknown Rx Dicyclomine [Bentyl] 20 mg PO QID #30 tablet 01/28/17 01/28/18 Unknown Rx ALBUTEROL NEB's [Proventil 0.083% 2.5 mg IH Q3HRT PRN #30 nebu 04/11/17 Unknown Rx NEBS] Sodium Bicarbonate 650 mg PO BID #60 tablet 04/11/17 01/28/18 Unknown Rx oxyCODONE /ACETAMINOPHEN [Percocet 1 tab PO Q4H PRN #30 tablet 04/11/17 Unknown Rx 5/325 mg] Promethazine [Phenergan TAB] 25 mg PO Q8HR PRN #30 tab 01/08/18 01/28/18 Unknown Rx amLODIPine [Norvasc] 5 mg PO QDAY #30 tablet 01/08/18 01/28/18 Unknown Rx Insulin NPH/Regular [NovoLIN 70/30] 30 unit SUB-Q QAMDIAB #1 units 01/13/1807/09 Unknown Rx Ondansetron [Zofran ODT TAB] 8 mg PO Q8HR PRN #30 tab.rapdis 01/13/18 01/28/18 Unknown Rx Active Meds: Active Medications Levofloxacin/Dextrose (Levaquin 500mg/100ml) 500 mg in 100 mls @ 100 mls/hr IV ONCE ONE Stop: 01/28/18 13:32 Review of Systems Constitutional: no weight loss, no weight gain, no fever, no chills Ears, nose, mouth and throat: no ear pain, no ear discharge, no tinnitis, no decreased hearing, no nose pain, no nasal congestion Cardiovascular: no chest pain, no orthopnea, no palpitations, no rapid/ irregular heart beat, no edema Respiratory: no cough, no cough with sputum, no excessive sputum, no hemoptysis , no shortness of breath Gastrointestinal: abdominal pain, no nausea, no vomiting, no diarrhea Genitourinary Female: no dysmenorrhea, no pelvic pain, no flank pain, no menorrhagia, no dysuria, no urinary frequency, no urgency Rectal: no pain, no incontinence, no bleeding Musculoskeletal: low back pain, no neck stiffness, no neck pain, no shooting arm pain, no arm numbness/tingling, no shooting leg pain, no leg numbness/ tingling, no redness of joints Integumentary: no rash, no pruritis, no redness, no sores, no wounds Neurological: no paralysis, no weakness, no parathesias, no numbness, no tingling, no seizures Psychiatric: no memory loss, no change in sleep habits, no sleep disturbances, no insomnia, no hypersomnia, no change in appetite, no change in libido Endocrine: no cold intolerance, no heat intolerance, no polyphagia, no excessive thirst, no polydipsia, no polyuria, no nocturia Hematologic/Lymphatic: no easy bruising, no easy bleeding, no lymphadenopathy, no lymphedema Allergic/Immunologic: no urticaria, no allergic rhinitis, no wheezing, no persistent infections, no anaphylaxis, no angioedema Exam - Constitutional Vitals: Temp Pulse Resp BP Pulse Ox 98.3 F 94 H 11 L 137/86 96 01/28/18 07:23 01/28/18 10:01 01/28/18 10:01 01/28/18 10:01 01/28/18 07:23 General appearance: Present: mild distress, obese - EENT Eyes: Present: PERRL ENT: hearing intact, clear oral mucosa - Neck Neck: Present: supple, normal ROM - Respiratory Respiratory effort: normal Respiratory: bilateral: CTA - Cardiovascular Heart Sounds: Present: S1 & S2. Absent: rub, click - Extremities Extremities: pulses symmetrical, No edema Peripheral Pulses: within normal limits - Abdominal General gastrointestinal: Present: soft, non-tender, non-distended, normal bowel sounds Female genitourinary: Present: normal - Integumentary Integumentary: Present: clear, warm, dry - Musculoskeletal Musculoskeletal: gait normal, strength equal bilaterally - Psychiatric Psychiatric: appropriate mood/affect, intact judgment & insight - Neurologic Neurologic: CNII-XII intact, moves all extremities Results - Labs CBC & Chem 7: 01/28/18 10:00 01/28/18 10:00 Labs: Abnormal lab results 01/28/18 01/28/18 Range/Units 10:00 10:00 RBC 2.46 L (3.65-5.03) M/mm3 Hgb 6.9 L (10.1-14.3) gm/dl Hct 21.5 L (30.3-42.9) % RDW 18.1 H (13.2-15.2) % Seg Neutrophils % 70.6 H (40.0-70.0) % Potassium 3.4 L (3.6-5.0) mmol/L Chloride 94.8 L (98-107) mmol/L BUN 23 H (7-17) mg/dL Creatinine 2.3 H (0.7-1.2) mg/dL Glucose 185 H (65-100) mg/dL ALT < 5 L (7-56) units/L Albumin 3.3 L (3.9-5) g/dL Lipase 62 H (13-60) units/L Assessment and Plan - Patient Problems (1) Pneumonia of both lower lobes Current Visit: Yes Status: Acute Plan to address problem: IV antibiotics, chest X ray, supplemental oxygen, nebulizer therapy, supplemental oxygen, blood cultures, incentive spirometry, (2) ESRD (end stage renal disease) on dialysis Current Visit: Yes Status: Acute Plan to address problem: Nephrology consulted, dialysis as per renal team, cmp, monitor uop q shift, strict I/O, renal diet (3) Dialysis disequilibrium syndrome Current Visit: Yes Status: Acute Plan to address problem: supportive care, monitor uop q shift, nephrology consulted, neuro checks, seizure precautions, aspiration precautions, (4) Anemia Current Visit: Yes Status: Acute Qualifiers: Chronic kidney disease stage: on chronic dialysis Plan to address problem: Symptomatic Anemia: PRBC transfusion with dialysis, repeat cbc, (5) DVT prophylaxis Current Visit: Yes Status: Acute Plan to address problem: scd to ble while in bed.
[2018-01-28] MEDS ORDERED: SODIUM CHLORIDE FLUSH SYRINGE 10 ML IV PRN (14:42)
[2018-01-28] MEDS ORDERED: TYLENOL PO PRN (14:42)
[2018-01-28] MEDS ORDERED: PEPCID IV ONE (14:42)
[2018-01-28] MEDS: DILAUDID IV PRN ×2 (15:35→19:57)
[2018-01-28] MEDS ORDERED: NACL 0.9% 500 ML 500 ML IV SCH (15:59)
[2018-01-28] MEDS: cefTRIAXone 1 GM in NACL 0.9% 20 ML IV SCH (16:14)
[2018-01-28] MEDS: SODIUM CHLORIDE FLUSH SYRINGE 10 ML IV SCH (21:17)
[2018-01-29] MEDS: ZOFRAN IV PRN ×3 (02:13→21:23)
[2018-01-29] MEDS: DILAUDID IV PRN ×6 (02:13→21:22)
[2018-01-29] MEDS ORDERED: HEPARIN IV PRN (08:50)
[2018-01-29] MEDS ORDERED: ALBURX 25% (ALBUMIN) IV PRN (08:50)
[2018-01-29] MEDS ORDERED: PROCRIT IV PRN (08:50)
[2018-01-29] MEDS ORDERED: NACL 0.9% 100 ML IV PRN (08:50)
--- NOTE | 2018-01-29 08:50 | Consultation ---
History of Present Illness - Reason for Consult Consult date: 01/29/18 Requesting physician: YARA MONTALVO - History of Present Illness 42-year-old lady known to our service with a history of type II tablets Mondays , hypertension and chronic kidney disease who was recently started on hemodialysis in December 2017. She dialyzes on a Sunday, and Sunday schedule at [facility] dialysis clinic. Patient has been hospitalized in the past with refractory nausea and vomiting possibly secondary to diabetic gastroparesis. Presents on account of abdominal pain, nausea, vomiting with decreased appetite. Patient describes the pain as a crampy pain all over the abdomen aggravated by movement with some relief by lying down. Pain is intermittent, wax and wanes with no diarrhea, hematemesis, melena or hematochezia. 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 She lives with her and 2 children). denies: smoking, alcohol abuse, prescription drug abuse Family history: diabetes (both parents have diabetes mellitus), hypertension Medications and Allergies Allergies Allergy/AdvReac Type Severity Reaction Status Date / Time ketorolac tromethamine Allergy Unknown Verified 08/16/17 05:28 [From Toradol] meperidine HCl [From Demerol] Allergy Shortness Verified 08/16/17 05:28 of Breath Home Medications Medication Instructions Recorded Confirmed Last Taken Type Insulin NPH Hum/Reg Insulin Hm 40 unit SQ QPM 10/05/15 01/28/18 Unknown History [HumuLIN 70-30 Vial] Sertraline [Zoloft] 100 mg PO QDAY 10/05/15 01/28/18 Unknown History methOCARBAMOL [Robaxin TAB] 500 mg PO BID 07/18/16 01/28/18 Unknown History Pantoprazole [Protonix TAB] 40 mg PO QDAY #30 tablet 09/06/16 01/28/18 Unknown Rx Labetalol [Normodyne TAB] 100 mg PO BID #60 tablet 09/09/16 01/28/18 Unknown Rx Metoclopramide [Reglan TAB] 10 mg PO TID PRN #20 tab 09/13/16 01/28/18 Unknown Rx Dicyclomine [Bentyl] 20 mg PO QID #30 tablet 01/28/17 01/28/18 Unknown Rx ALBUTEROL NEB's [Proventil 0.083% 2.5 mg IH Q3HRT PRN #30 nebu 04/11/17 Unknown Rx NEBS] Sodium Bicarbonate 650 mg PO BID #60 tablet 04/11/17 01/28/18 Unknown Rx oxyCODONE /ACETAMINOPHEN [Percocet 1 tab PO Q4H PRN #30 tablet 04/11/17 Unknown Rx 5/325 mg] Promethazine [Phenergan TAB] 25 mg PO Q8HR PRN #30 tab 01/08/18 01/28/18 Unknown Rx amLODIPine [Norvasc] 5 mg PO QDAY #30 tablet 01/08/18 01/28/18 Unknown Rx Insulin NPH/Regular [NovoLIN 70/30] 30 unit SUB-Q QAMDIAB #1 units 01/13/1807/09 Unknown Rx Ondansetron [Zofran ODT TAB] 8 mg PO Q8HR PRN #30 tab.rapdis 01/13/18 01/28/18 Unknown Rx Active Meds: Active Medications Acetaminophen (Tylenol) 650 mg PO Q4H PRN PRN Reason: Pain MILD(1-3)/Fever >100.5/WHARTON Hydromorphone HCl (Dilaudid) 1 mg IV Q4H PRN PRN Reason: Pain , Severe (7-10) Last Admin: 01/29/18 06:40 Dose: 1 mg Azithromycin 500 mg/ Sodium (Chloride) 250 mls @ 250 mls/hr IV Q24HR ELISA; Protocol Ceftriaxone Sodium 1 gm/ (Sodium Chloride) 20 mls @ 2 mls/min IV Q24HR ELISA Last Admin: 01/28/18 16:14 Dose: 2 mls/min Ondansetron HCl (Zofran) 4 mg IV Q8H PRN PRN Reason: Nausea And Vomiting Last Admin: 01/29/18 02:13 Dose: 4 mg Sodium Chloride (Sodium Chloride Flush Syringe 10 Ml) 10 ml IV BID ELISA Last Admin: 01/28/18 21:17 Dose: 10 ml Sodium Chloride (Sodium Chloride Flush Syringe 10 Ml) 10 ml IV PRN PRN PRN Reason: LINE FLUSH Review of Systems All systems: negative (Constitutional: no fever or chills. No anorexia or weight loss. HEENT: No sore throat or sinus drainage no hearing or vision impairment . Cardiovascular: No chest pain, shortness of breath, palpitations, lower extremity swelling or dizziness. Respiratory: No cough, sputum, shortness of breath, hemoptysis or wheezing. Gastrointestinal: See history of present illness. Genitourinary: No frequency urgency dysuria or hematuria. hematologic: No abnormal bleeding or bruising. Integumentary: no pruritus or rash. Neurological: No headache no focal weakness or numbness, no syncope or seizures. Musculoskeletal: No joint pains no stiffness. Psychiatry: Admits to both anxiety and depression) Exam - Vital Signs Vital signs: Vital Signs Temp Pulse Resp BP Pulse Ox 98.3 F 100 H 18 140/100 96 01/28/18 07:23 01/28/18 07:23 01/28/18 07:23 01/28/18 07:23 01/28/18 07:23 - Physical Exam Narrative exam: Obese middle aged AfricanAmerican female lying in bed in no acute distress HEENT: NCAT, pink oral mucous membrane Neck: Supple, no venous distention CVS: S1S2 RRR with no murmur, rub or gallop Chest: Clear to auscultation Abdomen: Protuberant, soft, nontender, no organomegaly, bowel sounds are present Extremities: No edema Neuro: Awake, alert no focal deficits Results - Lab Results 01/29/18 09:19 01/28/18 10:00 Most recent lab results Calcium 9.0 mg/dL (8.4-10.2) 01/28/18 10:00 Assessment and Plan - Patient Problems (1) Nausea and vomiting in adult Current Visit: Yes Status: Acute Plan to address problem: Nausea, vomiting with abdominal pain. Question gastroparesis. Improving with antiemetics. (2) Type 2 diabetes mellitus with diabetic nephropathy Current Visit: Yes Status: Acute Plan to address problem: Blood sugar management per primary attending (3) Anemia of chronic kidney failure Current Visit: Yes Status: Acute Plan to address problem: I agree with packed red blood cell transfusions. Patient receiving blood transfusion on dialysis. Given Erythropoetin on dialysis. Follow up hemoglobin in the morning (4) Hypertensive chronic kidney disease with stage 5 chronic kidney disease or end stage renal disease Current Visit: Yes Status: Acute Plan to address problem: Follow up Blood pressure (5) ESRD (end stage renal disease) on dialysis Current Visit: Yes Status: Acute Plan to address problem: Hemodialysis today and then on a Sunday, and Sunday schedule.
[2018-01-29 09:53] LABS: Hematocrit 21.8 % (30.3-42.9); Hemoglobin 6.8 gm/dl (10.1-14.3)
[2018-01-29] MEDS ORDERED: ROCEPHIN/NS 1 GM/50 ML 1 GM/50 ML BAG IV SCH (10:00)
[2018-01-29] MEDS ORDERED: BENADRYL IV ONE (10:28)
[2018-01-29] MEDS ORDERED: NACL 0.9 (PRIMING MACHINE ONLY DIALYSIS) MC ONE (10:42)
[2018-01-29] MEDS ORDERED: PROVENTIL IH PRN (12:41)
--- NOTE | 2018-01-29 12:50 | Progress Note ---
Assessment and Plan Assessment and plan: 42-year-old female patient with multiple medical problems was admitted through emergency room with abdominal pain altered level of consciousness unable to complete dialysis on Sunday --Bilateral pneumonia; community-acquired Continue current antibiotics. Oxygen, nebulizers follow cultures --End-stage renal disease on hemodialysis; HD per schedule Nephrology following --Anemia of chronic kidney disease; transfused 2 units of PRBC during hemodialysis,Closely monitor H&H --Dialysis disequilibrium syndrome; fall precautions Supportive care --DVT prophylaxis; heparin renally dose Closely monitor the patient and adjust the management as needed Plan of care reviewed with the patient and the nurse History Interval history: Patient seen and examined Medical records reviewed Patient feels better,received HD today Received 2 units PRBCNo new complaints Vitals,reviewed Hospitalist Physical - Constitutional Vitals: Temp Pulse Resp BP Pulse Ox 97.8 F 86 18 125/90 99 01/29/18 11:53 01/29/18 12:00 01/29/18 11:53 01/29/18 12:00 01/29/18 08:41 General appearance: Present: no acute distress, obese - EENT Eyes: Present: PERRL, EOM intact - Neck Neck: Present: supple, normal ROM - Respiratory Respiratory effort: normal Respiratory: bilateral: diminished, negative: rales, rhonchi, wheezing - Cardiovascular Rhythm: regular Heart Sounds: Present: S1 & S2 - Extremities Extremities: no ischemia, pulses intact - Abdominal General gastrointestinal: soft, non-tender, non-distended, normal bowel sounds - Integumentary Integumentary: Present: clear, warm - Psychiatric Psychiatric: appropriate mood/affect, cooperative - Neurologic Neurologic: CNII-XII intact, moves all extremities Results - Labs CBC & Chem 7: 01/30/18 12:08 01/30/18 12:08 Labs: Laboratory Last Values WBC 9.5 K/mm3 (4.5-11.0) 01/28/18 10:00 RBC 2.46 M/mm3 (3.65-5.03) L 01/28/18 10:00 Hgb 6.8 gm/dl (10.1-14.3) L 01/29/18 09:19 Hct 21.8 % (30.3-42.9) L 01/29/18 09:19 MCV 87 fl (79-97) 01/28/18 10:00 MCH 28 pg (28-32) 01/28/18 10:00 MCHC 32 % (30-34) 01/28/18 10:00 RDW 18.1 % (13.2-15.2) H 01/28/18 10:00 Plt Count 397 K/mm3 (140-440) 01/28/18 10:00 Lymph % (Auto) 23.4 % (13.4-35.0) 01/28/18 10:00 Gilmer % (Auto) 4.7 % (0.0-7.3) 01/28/18 10:00 Eos % (Auto) 1.2 % (0.0-4.3) 01/28/18 10:00 Baso % (Auto) 0.1 % (0.0-1.8) 01/28/18 10:00 Lymph # 2.2 K/mm3 (1.2-5.4) 01/28/18 10:00 Gilmer # 0.5 K/mm3 (0.0-0.8) 01/28/18 10:00 Eos # 0.1 K/mm3 (0.0-0.4) 01/28/18 10:00 Baso # 0.0 K/mm3 (0.0-0.1) 01/28/18 10:00 Seg Neutrophils % 70.6 % (40.0-70.0) H 01/28/18 10:00 Seg Neutrophils # 6.7 K/mm3 (1.8-7.7) 01/28/18 10:00 Sodium 137 mmol/L (137-145) 01/28/18 10:00 Potassium 3.4 mmol/L (3.6-5.0) L 01/28/18 10:00 Chloride 94.8 mmol/L (98-107) L 01/28/18 10:00 Carbon Dioxide 25 mmol/L (22-30) 01/28/18 10:00 Anion Gap 21 mmol/L 01/28/18 10:00 BUN 23 mg/dL (7-17) H 01/28/18 10:00 Creatinine 2.3 mg/dL (0.7-1.2) H 01/28/18 10:00 Estimated GFR 28 ml/min 01/28/18 10:00 BUN/Creatinine Ratio 10 % 01/28/18 10:00 Glucose 185 mg/dL (65-100) H 01/28/18 10:00 POC Glucose 217 (70-105) H 01/29/18 07:11 Calcium 9.0 mg/dL (8.4-10.2) 01/28/18 10:00 Total Bilirubin 0.20 mg/dL (0.1-1.2) 01/28/18 10:00 AST 6 units/L (5-40) 01/28/18 10:00 ALT < 5 units/L (7-56) L 01/28/18 10:00 Alkaline Phosphatase 87 units/L (35-129) 01/28/18 10:00 Total Protein 7.3 g/dL (6.3-8.2) 01/28/18 10:00 Albumin 3.3 g/dL (3.9-5) L 01/28/18 10:00 Albumin/Globulin Ratio 0.8 % 01/28/18 10:00 Lipase 62 units/L (13-60) H 01/28/18 10:00 Blood Type O POSITIVE 01/28/18 15:51 Antibody Screen Negative 01/28/18 15:51 Crossmatch See Detail 01/28/18 15:51
[2018-01-29] MEDS: BENTYL PO SCH ×3 (14:00→21:23)
[2018-01-29] MEDS: ZITHROMAX 500 MG in NACL 0.9% 250ML 250 ML IV SCH ×3 (17:13→18:20)
[2018-01-29] MEDS: ZOLOFT PO SCH (17:17)
[2018-01-29] MEDS: PROTONIX PO SCH (17:17)
[2018-01-29] MEDS: SODIUM CHLORIDE FLUSH SYRINGE 10 ML IV SCH ×2 (17:18→21:28)
[2018-01-29] MEDS: cefTRIAXone 1 GM in NACL 0.9% 20 ML IV SCH (18:54)
[2018-01-30] MEDS: DILAUDID IV PRN ×2 (02:16→06:44)
[2018-01-30] MEDS: ZOFRAN IV PRN (06:03)
[2018-01-30 09:19] VITALS: BP 120/75
[2018-01-30] MEDS ORDERED: NORVASC PO SCH (10:00)
[2018-01-30] MEDS ORDERED: ZITHROMAX PO SCH (10:00)
[2018-01-30] MEDS: ZOLOFT PO SCH (10:20)
[2018-01-30] MEDS: PERCOCET 5/325 PO PRN ×2 (10:21→17:11)
[2018-01-30] MEDS: PROTONIX PO SCH (10:21)
[2018-01-30] MEDS: BENTYL PO SCH (10:22)
[2018-01-30] MEDS: SODIUM CHLORIDE FLUSH SYRINGE 10 ML IV SCH (10:23)
[2018-01-30] MEDS ORDERED: DILAUDID IV PRN (10:38)
--- NOTE | 2018-01-30 12:29 | Progress Note ---
Assessment and Plan - Patient Problems (1) Nausea and vomiting in adult Current Visit: Yes Status: Acute Plan to address problem: Nausea, vomiting with abdominal pain. Question gastroparesis. Improved with antiemetics. Discharge planning by primary attending (2) Type 2 diabetes mellitus with diabetic nephropathy Current Visit: Yes Status: Acute Plan to address problem: Blood sugar management per primary attending (3) Anemia of chronic kidney failure Current Visit: Yes Status: Acute Plan to address problem: Follow posttransfusion hemoglobin (4) Hypertensive chronic kidney disease with stage 5 chronic kidney disease or end stage renal disease Current Visit: Yes Status: Acute Plan to address problem: Follow up Blood pressure (5) ESRD (end stage renal disease) on dialysis Current Visit: Yes Status: Acute Plan to address problem: Hemodialysis today and then on a Sunday, and Sunday schedule. Subjective Date of service: 01/30/18 Principal diagnosis: ESRD Interval history: Patient seen lying in bed. She feels better. Would like to go home Objective - Exam Narrative Exam: Obese middle aged AfricanAmerican female lying in bed in no acute distress HEENT: NCAT, pink oral mucous membrane Neck: Supple, no venous distention CVS: S1S2 RRR with no murmur, rub or gallop Chest: Clear to auscultation Abdomen: Protuberant, soft, nontender, no organomegaly, bowel sounds are present Extremities: No edema Neuro: Awake, alert no focal deficits - Vital Signs Vital signs: Vital Signs - 12hr 01/30/18 01/30/18 01/30/18 08:38 10:00 10:22 Temperature 97.7 F Pulse Rate 75 75 Respiratory 20 Rate Blood Pressure 120/75 120/75 O2 Sat by Pulse 100 100 Oximetry - Lab 01/29/18 09:19 01/28/18 10:00 Most recent lab results Calcium 9.0 mg/dL (8.4-10.2) 01/28/18 10:00
[2018-01-30 12:33] LABS: Basophils % (Auto) 0.2 % (0.0-1.8); Eosinophils # (Auto) 0.1 K/mm3 (0.0-0.4); Eosinophils % (Auto) 1.1 % (0.0-4.3); Hematocrit 30.8 % (30.3-42.9); Hemoglobin 10.3 gm/dl (10.1-14.3); Lymphocytes # (Auto) 1.8 K/mm3 (1.2-5.4); Lymphocytes % (Auto) 21.3 % (13.4-35.0); Mean Corpuscular HGB Conc 33 % (30-34); Mean Corpuscular Hemoglobin 29 pg (28-32); Mean Corpuscular Volume 88 fl (79-97); Monocytes # (Auto) 0.3 K/mm3 (0.0-0.8); Monocytes % (Auto) 3.4 % (0.0-7.3); Platelet Count 248 K/mm3 (140-440); Red Blood Count 3.51 M/mm3 (3.65-5.03); Red Cell Distribution Width 16.9 % (13.2-15.2)
[2018-01-30] MEDS: cefTRIAXone 1 GM in NACL 0.9% 20 ML IV SCH (12:37)
[2018-01-30 13:30] LABS: Calcium 9.8 mg/dL (8.4-10.2)
--- NOTE | 2018-01-30 13:44 | Discharge Summary ---
Providers - Providers Date of Admission: 01/28/18 14:42 Date of discharge: 01/30/18 Attending physician: JOSEPH MONSON 01/29/18 08:29 Consult to Physician [CONS] Routine Comment: Consulting Provider: RIAZ LAFLEUR Physician Instructions: Reason For Exam: ESRD/ on HD Primary care physician: [employer] SERV[employer] ATTENDANT Hospitalization Condition: Fair Disposition: DC-01 TO HOME OR SELFCARE Core Measure Documentation - Palliative Care Palliative Care/ Comfort Measures: Not Applicable - Core Measures Any of the following diagnoses?: none Exam - Constitutional Vitals: Temp Pulse Resp BP Pulse Ox 97.7 F 75 20 120/75 100 01/30/18 08:38 01/30/18 10:22 01/30/18 08:38 01/30/18 10:22 01/30/18 10:00 Plan Activity: no restrictions Diet: low fat, low cholesterol, low salt, diabetic, renal Additional Instructions: 1.Follow up with PCP in 1 week. 2.Routine hemodialysis as scheduled Follow up with: PRIMARY CARE, [Primary Care Provider] - 3-5 Days Prescriptions: Azithromycin [Zithromax TAB] 250 mg PO QDAY #3 tablet
--- NOTE | 2018-01-30 14:47 | XRay Report ---
CHEST 2 VIEWS INDICATION: Infiltrate. COMPARISON: 01/28/2018 FINDINGS: Frontal and lateral chest radiographs demonstrate stable, slight exaggerated cardiomediastinal silhouette. No pleural effusions or CHF. Slightly crowded lung markings centrally and toward the bases. Slight peribronchial thickening. Stable right sided dual lumen catheter tip along the distal SVC. Right AC joint degenerative changes. CONCLUSION: No acute chest process or significant interval change, as described. Thank you for the opportunity to participate in this patient's care.
== END 2018-01-30 18:20 | disposition home or self-care (01) | DRG 193 ==
LOC: ED 06:53 → 3A 14:42
PROVIDERS: ADMIT Internal Medicine; ATTEND Internal Medicine
PROC: 30233N1 Transfusion of Nonautologous Red Blood Cells into Peripheral Vein, Percutaneous Approach (ICD-10-PCS; principal; 2018-01-29)
PROC: 5A1D70Z Performance of Urinary Filtration, Intermittent, Less than 6 Hours Per Day (ICD-10-PCS; 2018-01-29)
DX: J18.1 Lobar pneumonia, unspecified organism (principal); N18.6 End stage renal disease; I13.2 Hypertensive heart and chronic kidney disease with heart failure and with stage 5 chronic kidney disease, or end stage renal disease; Z99.2 Dependence on renal dialysis; E87.8 Other disorders of electrolyte and fluid balance, not elsewhere classified; E11.22 Type 2 diabetes mellitus with diabetic chronic kidney disease; Z88.6 Allergy status to analgesic agent; Z88.8 Allergy status to other drugs, medicaments and biological substances; I50.9 Heart failure, unspecified; Q05.9 Spina bifida, unspecified; G89.29 Other chronic pain; E66.01 Morbid (severe) obesity due to excess calories; E11.43 Type 2 diabetes mellitus with diabetic autonomic (poly)neuropathy; K31.84 Gastroparesis; Z90.49 Acquired absence of other specified parts of digestive tract; Z82.49 Family history of ischemic heart disease and other diseases of the circulatory system; Z83.3 Family history of diabetes mellitus; Z79.4 Long term (current) use of insulin; Z79.899 Other long term (current) drug therapy; D63.1 Anemia in chronic kidney disease; J45.909 Unspecified asthma, uncomplicated; Z68.42 Body mass index [BMI] 45.0-49.9, adult
CPT/HCPCS: 36415; 36430; 71045; 71046; 74176; 80048; 80053; 82962; 83690; 85014; 85018; 85025; 86850; 86900; 86901; 86920; 87040; 94760; 96365; 96366; 96375; 96376; J0456; J0696; J0885; J1170; J1200; J1644; J1815; J1956; J2405; J7030; J7050; P9016; P9047

== ENCOUNTER 2018-04-28 10:37 | Emergency (ER) | payer MEDICAID ==
[2018-04-28 10:45] VITALS: BP 149/103
[2018-04-28] MEDS ORDERED: NACL 0.9% 1000 ML 1,000 ML IV ONE (10:45)
== END 2018-04-28 12:30 | disposition left against medical advice (07) ==
LOC: ED 10:37
DX: R11.10 Vomiting, unspecified (principal); Z53.21 Procedure and treatment not carried out due to patient leaving prior to being seen by health care provider

== ENCOUNTER 2018-05-04 10:44 | Emergency (ER) | payer MEDICAID ==
[2018-05-04 10:53] VITALS: BP 150/106
[2018-05-04 11:32] LABS: Basophils % (Auto) 0.3 % (0.0-1.8); Eosinophils # (Auto) 0.1 K/mm3 (0.0-0.4); Eosinophils % (Auto) 1.6 % (0.0-4.3); Hematocrit 32.6 % (30.3-42.9); Hemoglobin 10.5 gm/dl (10.1-14.3); Lymphocytes # (Auto) 1.8 K/mm3 (1.2-5.4); Lymphocytes % (Auto) 31.7 % (13.4-35.0); Mean Corpuscular HGB Conc 32 % (30-34); Mean Corpuscular Hemoglobin 31 pg (28-32); Mean Corpuscular Volume 97 fl (79-97); Monocytes # (Auto) 0.3 K/mm3 (0.0-0.8); Monocytes % (Auto) 5.1 % (0.0-7.3); Platelet Count 188 K/mm3 (140-440); Red Blood Count 3.36 M/mm3 (3.65-5.03); Red Cell Distribution Width 18.6 % (13.2-15.2)
[2018-05-04 11:45] LABS: Alanine Aminotransferase 5 units/L (7-56); Albumin 3.5 g/dL (3.9-5); BUN/Creatinine Ratio 19; Blood Urea Nitrogen 23 mg/dL (7-17); Calcium 9.6 mg/dL (8.4-10.2); Hemolysis Index 9
== END 2018-05-04 13:45 | disposition left against medical advice (07) ==
LOC: ED 10:44
DX: R11.2 Nausea with vomiting, unspecified (principal); I50.9 Heart failure, unspecified; I12.0 Hypertensive chronic kidney disease with stage 5 chronic kidney disease or end stage renal disease; E11.22 Type 2 diabetes mellitus with diabetic chronic kidney disease; J45.909 Unspecified asthma, uncomplicated; Z88.5 Allergy status to narcotic agent; Z88.8 Allergy status to other drugs, medicaments and biological substances; Z99.2 Dependence on renal dialysis; Z79.4 Long term (current) use of insulin; Z53.21 Procedure and treatment not carried out due to patient leaving prior to being seen by health care provider
CPT/HCPCS: 36415; 80053; 85025

== ENCOUNTER 2018-05-06 06:27 | Emergency (ER) | payer MEDICAID ==
[2018-05-06] MEDS ORDERED: NACL 0.9% 1000 ML 1,000 ML IV ONE (07:15)
[2018-05-06 09:17] VITALS: BP 134/93
[2018-05-06] MEDS ORDERED: NACL 0.9% 250ML 0 ML ONE (09:36)
[2018-05-06] MEDS ORDERED: TYLENOL ONE (09:37)
[2018-05-06] MEDS ORDERED: ZOFRAN ODT ONE (09:41)
== END 2018-05-06 10:08 | disposition left against medical advice (07) ==
LOC: ED 06:27
DX: M54.9 Dorsalgia, unspecified (principal); R10.9 Unspecified abdominal pain; R11.10 Vomiting, unspecified; Z53.21 Procedure and treatment not carried out due to patient leaving prior to being seen by health care provider
CPT/HCPCS: J7050; Q0162

== ENCOUNTER 2018-07-29 06:22 | Day surgery (SDC) | payer MEDICAID ==
[~2018-07-29 06:22] MED LIST: ANCEF/STERILE WATER 2 GM/20 ML 2 GM/20 ML SYRINGE IV NR; NACL 0.9% 1000 ML 1,000 ML IV SCH; PEPCID IV NR; VERSED IV NR
[2018-07-29] MEDS ORDERED: PROTAMINE SULFATE ONE (06:39)
[2018-07-29] MEDS ORDERED: HEPARIN 10,000 UNITS/10 ML ONE (06:40)
[2018-07-29] MEDS ORDERED: NACL 0.9% 500 ML 500 ML ONE (06:40)
[2018-07-29] MEDS ORDERED: NACL ONE (06:40)
[2018-07-29] MEDS ORDERED: RIFADIN ONE (06:40)
[2018-07-29] MEDS ORDERED: MARCAINE-EPI 0.5%-1:200,000 INFILTRATI ONE (06:40)
[2018-07-29] MEDS ORDERED: PAPAVERINE ONE (06:40)
[2018-07-29] MEDS ORDERED: MARCAINE 0.5% INFILTRATI ONE ×3 (06:40→09:05)
[2018-07-29] MEDS ORDERED: NACL 0.9% 250ML 250 ML ONE (07:02)
[2018-07-29] MEDS ORDERED: XYLOCAINE MPF 2% ONE (07:12)
[2018-07-29] MEDS ORDERED: SUBLIMAZE ONE (07:12)
[2018-07-29] MEDS ORDERED: DIPRIVAN 10 MG/ML IV ONE (07:13)
[2018-07-29] MEDS ORDERED: SUBLIMAZE IV PRN (07:49)
--- NOTE | 2018-07-29 07:52 | Anesthesia Consultation ---
Anesthesia Consult and Med Hx Date of service: 07/29/18 - Airway Anesthetic Teeth Evaluation: Poor, Dentures (top) ROM Head & Neck: Adequate (short, thick neck) Mental/Hyoid Distance: Inadequate Mallampati Class: Class III Intubation Access Assessment: Possibly Difficult - Pulmonary Exam CTA: Yes - Cardiac Exam Cardiac Exam: RRR - Pre-Operative Health Status ASA Pre-Surgery Classification: ASA4 Proposed Anesthetic Plan: General - Pulmonary Hx Asthma: Yes (last albuterol use >3 yrs ago) Hx Respiratory Symptoms: No SOB: No Hx Sleep Apnea: Yes (noncompliant with CPAP) - Cardiovascular System Hx Hypertension: Yes Hx Coronary Artery Disease: Yes Hx Heart Attack/AMI: No Hx Percutaneous Transluminal Coronary Angioplasty (PTCA): No - Central Nervous System Hx Neuromuscular Disorder: Yes (spina bifida; difficulty laying flat 2/2 pain) Hx Seizures: No CVA: No Hx Back Pain: Yes Hx Psychiatric Problems: Yes (depression) - Gastrointestinal Hx Gastroesophageal Reflux Disease: Yes - Endocrine Hx End Stage Renal Disease: Yes (TTS HD vai permcath; last HD 07/27) Hx Insulin Dependent Diabetes: Yes Hx Thyroid Disease: No - Hematic Hx Anemia: Yes (most recent transfusion 3-4 mos ago) - Other Systems Hx Alcohol Use: Yes (Occas) Hx Cancer: No Hx Obesity: Yes
--- NOTE | 2018-07-29 07:53 | Anesthesia Day of Surgery ---
Anesthesia Day of Surgery - Day of Surgery Patient Examined: Yes Patient H&P Reviewed: Yes Patient is NPO: Yes
[2018-07-29] MEDS ORDERED: VERSED ONE (08:32)
[2018-07-29] MEDS ORDERED: KETALAR ONE (08:32)
[2018-07-29] MEDS ORDERED: RIFADIN 600 MG in NACL 0.9% 50 ML IR ONE (09:05)
[2018-07-29] MEDS ORDERED: RIFADIN IV ONE (09:05)
[2018-07-29] MEDS ORDERED: NACL 0.9% IR ONE (09:05)
[2018-07-29] MEDS ORDERED: HEPARIN 10,000 UNITS/10 ML IV ONE (09:05)
[2018-07-29] MEDS ORDERED: HEPARIN 10,000 UNITS/10 ML 2,000 UNIT in NACL 0.9% 500 ML 500 ML IR ONE (09:05)
[2018-07-29] MEDS ORDERED: ZOFRAN ONE (10:14)
[2018-07-29] MEDS ORDERED: ROBINUL ONE ×2 (10:14→10:17)
[2018-07-29] MEDS ORDERED: ZEMURON IV ONE (10:17)
[2018-07-29] MEDS ORDERED: QUELICIN ONE (10:17)
--- NOTE | 2018-07-29 10:31 | Short Stay Summary ---
Short Stay Documentation Date of service: 07/29/18 Narrative H&P: See H&P - History H&P: obtained from office - Allergies and Medications Current Medications: Allergies ketorolac tromethamine [From Toradol] Allergy (Verified 07/26/18 13:31) Unknown meperidine HCl [From Demerol] Allergy (Verified 07/26/18 13:31) Shortness of Breath Home Medications Medication Instructions Recorded Confirmed Last Taken Type Insulin NPH Hum/Reg Insulin Hm 40 unit SQ QPM 10/05/15 07/29/18 07/28/18 20:00 History [HumuLIN 70-30 Vial] Sertraline [Zoloft] 100 mg PO QDAY 10/05/15 07/29/18 07/28/18 09:00 History Pantoprazole [Protonix TAB] 40 mg PO QDAY #30 tablet 09/06/16 07/29/18 07/28/18 09:00 Rx Labetalol [Normodyne TAB] 100 mg PO BID #60 tablet 09/09/16 07/29/18 07/27/18 09 :00 Rx Metoclopramide [Reglan TAB] 10 mg PO TID PRN #20 tab 09/13/16 07/26/18 Unknown Rx ALBUTEROL NEB's [Proventil 0.083% 2.5 mg IH Q3HRT PRN #30 nebu 04/11/17 Unknown Rx NEBS] oxyCODONE /ACETAMINOPHEN [Percocet 1 tab PO Q4H PRN #30 tablet 04/11/17 Unknown Rx 5/325 mg] Promethazine [Phenergan TAB] 25 mg PO Q8HR PRN #30 tab 01/08/18 07/26/18 Unknown Rx amLODIPine [Norvasc] 5 mg PO QDAY #30 tablet 01/08/18 07/29/18 07/28/18 09:00 Rx Insulin NPH/Regular [NovoLIN 70/30] 30 unit SUB-Q QAMDIAB #1 units 01/13/1806/0807/28/18 08:00 Rx Ondansetron [Zofran ODT TAB] 8 mg PO Q8HR PRN #30 tab.rapdis 01/13/18 07/26/18 Unknown Rx Active Medications Famotidine (Pepcid) 20 mg IV PREOP NR Stop: 07/29/18 23:00 Last Admin: 07/29/18 07:50 Dose: 20 mg Fentanyl (Sublimaze) 50 mcg IV Q15MIN PRN PRN Reason: Pain , Severe (7-10) Stop: 07/29/18 15:00 Cefazolin Sodium (Ancef/Sterile Water 2 Gm/20 Ml) 2 gm in 20 mls @ 80 mls/hr IV PREOP NR; Protocol Stop: 07/29/18 23:00 Sodium Chloride (Nacl 0.9% 1000 Ml) 1,000 mls @ 100 mls/hr IV DIRECT ELISA Last Admin: 07/29/18 07:50 Dose: 100 mls/hr Midazolam HCl (Versed) 2 mg IV PREOP NR Stop: 07/29/18 23:59 - Brief post op/procedure progress note Date of procedure: 07/29/18 Pre-op diagnosis: End Stage Renal Disease Post-op diagnosis: same Procedure: Creation of Left Brachial Artery to Axillary Vein Arteriovenous Graft with 6 mm Bovine Graft Anesthesia: GETA Surgeon: AWILDA WINSLOW Estimated blood loss: minimal Pathology: none Condition: stable - Disposition Condition at discharge: Good Disposition: DC-01 TO HOME OR SELFCARE Short Stay Discharge Plan Activity: other (No heavy lifting with left arm) Wound: open to air, keep clean and dry, other (Okay to wash the wound with soap and water but do not soak in water) Follow up with: AWILDA WINSLOW MD [Staff Physician] - 14 Days Prescriptions: HYDROcodone/APAP 7.5-325 [[place] 7.5/325] 1 each PO Q6HR PRN #40 tablet PRN Reason: Pain
[2018-07-29] MEDS ORDERED: NEO SYNEPHRINE/NS Syringe(OR USE) IV ONE (10:41)
--- NOTE | 2018-07-29 10:55 | Operative Report ---
Operative Report Operative Report: Date of procedure: 07/29/2018 Pre-operative diagnosis: End-Stage Renal Disease Post-operative diagnosis: Same Procedure(s): 1. Creation of Left Brachial Artery to Axillary Vein AV Graft with 6 mm Bovine Graft Surgeon: Ananth Castañeda MD Hand Gluer And Slicer: None Anesthesia: General Endotracheal Anesthesia EBL: Minimal Counts: Correct Complications: None Condition: Stable Findings: Successful Creation of Left Arm AV Graft Specimen: None Indication: The patient is a 42-year-old female with a history of end-stage renal disease currently on hemodialysis through a right internal jugular permacath. She is in need of long-term dialysis access and had no adequate vein for creation of an AV fistula since she will require creation of an AV graft. She was given the risks, benefits, and alternative procedures and consented to the procedure. Description of Procedure: The patient was brought to the operating room and laid in supine position after general endotracheal anesthesia was achieved the left arm was prepped and draped in normal sterile fashion. A longitudinal incision was made on the medial aspect of the arm just proximal to the antecubital crease and carried down to the brachial artery using sharp dissection. The brachial artery was dissected out circumferentially both proximally and distally and controlled with vessel loops. A second incision was created in longitudinal fashion on the medial aspect of the arm just distal to the axillary crease and carried down to the axillary vein using sharp dissection. Axillary vein was dissected out circumferentially and controlled with a vessel loop. I then used a Alla- Wick tunneler to tunnel from the brachial artery incision to the axillary vein incision and then put an 6 mm bovine through the tunnel. I infused with heparinized saline to ensure that it was not twisted or kinked. I put the brachial artery vessel loops on tension controlling the flow and then created an arteriotomy using an 11 blade and Collins scissors. I beveled the graft and created an end-to-side anastomosis using 6-0 Prolene running fashion. I clamped the graft just proximal to the anastomosis and then released the vessel loops restoring flow in the brachial artery. I placed quick clot in incision to achieve hemostasis. I cut the proximal end of the graft to the appropriate length and beveled the graft in preparation for a venous anastomosis. I controlled the axillary vein a Satinsky clamp and created a venotomy using an 11 blade and Collins scissors. I created an end to side anastomosis using a 6-0 Prolene in running fashion. Prior to completing the anastomosis I flushed the graft to ensure there was no thrombus and then completed the anastamosis. I released all clamps allowing flow into the AV graft which had an excellent thrill. I packed the wound with quick clot to achieve hemostasis. I anesthetized both wounds with Marcaine and then closed both wounds in 2 layers using 3-0 Vicryl in running fashion in the deep dermal layer and 4-0 Monocryl in running fashion the subcuticular layer. I dressed both wounds with Surgicel. The patient tolerated the procedure well all sponge needle and instrument counts were correct the patient was taken to recovery in stable condition.
--- NOTE | 2018-07-29 11:46 | Post Anesthesia Evaluation ---
- Post Anesthesia Evaluation Patient Participated: Yes Airway Patent: Yes Stable Respiratory Function: Yes Nausea/Vomiting: No Temp > 96.8F: Yes Pain Manageable: Yes Adequeate Hydration: Yes Anesthesia Complications: No
[2018-07-29] MEDS ORDERED: NORCO 7.5/325 PO PRN (11:55)
[2018-07-29 12:27] VITALS: BP 138/79
== END 2018-07-29 12:30 | disposition home or self-care (01) ==
LOC: OR 06:22
PROVIDERS: ATTEND Surgery Vascular Surgery
DX: I13.2 Hypertensive heart and chronic kidney disease with heart failure and with stage 5 chronic kidney disease, or end stage renal disease (principal); E11.22 Type 2 diabetes mellitus with diabetic chronic kidney disease; I50.9 Heart failure, unspecified; N18.6 End stage renal disease; E11.65 Type 2 diabetes mellitus with hyperglycemia; D64.9 Anemia, unspecified; J18.9 Pneumonia, unspecified organism; E11.21 Type 2 diabetes mellitus with diabetic nephropathy; I25.10 Atherosclerotic heart disease of native coronary artery without angina pectoris; G47.30 Sleep apnea, unspecified; K21.9 Gastro-esophageal reflux disease without esophagitis; M19.90 Unspecified osteoarthritis, unspecified site; F32.9 Major depressive disorder, single episode, unspecified; E66.01 Morbid (severe) obesity due to excess calories; Z68.43 Body mass index [BMI] 50.0-59.9, adult; Z72.89 Other problems related to lifestyle; Z82.49 Family history of ischemic heart disease and other diseases of the circulatory system; Z83.3 Family history of diabetes mellitus; Z88.8 Allergy status to other drugs, medicaments and biological substances; Z79.899 Other long term (current) drug therapy; Z79.4 Long term (current) use of insulin; Z90.49 Acquired absence of other specified parts of digestive tract; Z98.890 Other specified postprocedural states; Z98.891 History of uterine scar from previous surgery; Z82.61 Family history of arthritis
CPT/HCPCS: 36830; 81025; 82803; 82962; C1757; C1768; J0330; J0690; J1644; J2250; J2370; J2405; J2704; J3010; J3490; J7030; J7040; J7050; J2440; J2720

== ENCOUNTER 2018-11-10 08:52 | Emergency (ER) | payer MEDICAID ==
--- NOTE | 2018-11-10 10:53 | Emergency Department Report ---
ED Abdominal Pain HPI - General Chief Complaint: Abdominal Pain Stated Complaint: ABD PAIN/VOMITING Time Seen by Provider: 11/10/18 10:48 Source: patient Mode of arrival: Ambulatory Limitations: No Limitations - History of Present Illness Initial Comments: This is a 42-year-old female nontoxic, well nourished in appearance, no acute signs of distress presents to the ED with c/o of nausea and vomiting and abdominal pain. Patient describes vomiting as food content and yellow gastric acid. Patient describes abdominal pain as cramping and aching with level of 8/10 diffuse. Patient denies chest pain, short of breath, fever, chills, headache, stiff neck, numbness or tingling. Patient denies any diarrhea or constipation. Patient denies any recent travels. Patient stated allergies to ketorolac and meperidine. MD Complaint: abdominal pain Location: diffuse Radiation: none Migration to: no migration Severity: mild Severity scale (0 -10): 8 Quality: cramping, aching Consistency: constant Improves With: nothing Worsens With: nothing Associated Symptoms: nausea, vomiting. denies: diarrhea, fever, chills, constipation, dysuria, hematemesis, hematochezia, melena, hematuria, anorexia, syncope - Related Data Home Medications Medication Instructions Recorded Confirmed Last Taken Insulin NPH Hum/Reg Insulin Hm 40 unit SQ QPM 10/05/15 10/10/18 10/09/18 20:00 [HumuLIN 70-30 Vial] Sertraline [Zoloft] 100 mg PO QDAY 10/05/15 10/10/18 10/09/18 11:00 Previous Rx's Medication Instructions Recorded Last Taken Type Metoclopramide [Reglan TAB] 10 mg PO TID PRN #20 tab 09/13/16 10/09/18 21:00 Rx ALBUTEROL NEB's [Proventil 0.083% 2.5 mg IH Q3HRT PRN #30 nebu 04/11/17 09/13/18 Rx NEBS] oxyCODONE /ACETAMINOPHEN [Percocet 1 tab PO Q4H PRN #30 tablet 04/11/17 10/09/18 20:00 Rx 5/325 mg] Promethazine [Phenergan TAB] 25 mg PO Q8HR PRN #30 tab 01/08/18 10/09/18 09:00 Rx amLODIPine [Norvasc] 5 mg PO QDAY #30 tablet 01/08/18 10/09/18 20:00 Rx Insulin NPH/Regular [NovoLIN 70/30] 30 unit SUB-Q QAMDIAB #1 units 01/13/18 10/09/18 11:00 Rx HYDROcodone/APAP 7.5-325 [[place] 1 each PO Q6HR PRN #40 tablet 07/29/18 Unknown Rx 7.5-325 mg TAB] Oxycodone HCl/Acetaminophen 1 each PO Q6HR PRN #20 tablet 10/10/18 Unknown Rx [Percocet 7.5/325 mg] Ciprofloxacin HCl [Cipro] 500 mg PO BID 10 Days #20 tablet 10/22/18 Unknown Rx HYDROcodone/APAP 7.5-325 [[place] 1 each PO Q6HR PRN #12 tablet 10/22/18 Unknown Rx 7.5/325] Ondansetron [Zofran Odt] 4 mg PO Q8HR PRN #12 tab.rapdis 10/22/18 Unknown Rx Tamsulosin [Flomax] 0.4 mg PO QDAY #14 cap 10/22/18 Unknown Rx Ondansetron [Zofran Odt] 4 mg PO Q8HR PRN #20 tab.rapdis 11/10/18 Unknown Rx Allergies Allergy/AdvReac Type Severity Reaction Status Date / Time ketorolac tromethamine Allergy Unknown Verified 10/08/18 18:00 [From Toradol] meperidine HCl [From Demerol] Allergy Shortness Verified 10/08/18 18:00 of Breath ED Review of Systems ROS: Stated complaint: ABD PAIN/VOMITING Other details as noted in HPI Constitutional: denies: chills, fever Eyes: denies: eye pain, eye discharge, vision change ENT: denies: ear pain, throat pain Respiratory: denies: cough, shortness of breath, wheezing Cardiovascular: denies: chest pain, palpitations Endocrine: no symptoms reported Gastrointestinal: abdominal pain, nausea, vomiting. denies: diarrhea Genitourinary: denies: urgency, dysuria, discharge Musculoskeletal: denies: back pain, joint swelling, arthralgia Skin: denies: rash, lesions Neurological: denies: headache, weakness, paresthesias Psychiatric: denies: anxiety, depression Hematological/Lymphatic: denies: easy bleeding, easy bruising ED Past Medical Hx - Past Medical History Hx Hypertension: Yes (Hospitalized in hypertensive crisis 08/28/18) Hx CVA: No Hx Congestive Heart Failure: No Hx Diabetes: Yes Hx GERD: Yes Hx Renal Disease: Yes Hx Arthritis: Yes (All joints) Hx Headaches / Migraines: Yes (Migraines) Hx Psychiatric Treatment: No Hx Asthma: Yes (no recent albuterol use) Hx COPD: No Hx HIV: No Additional medical history: spina bifida, Gastroparesis. morbid obesity, home oxygen @ 3LPM nasal cannula - Surgical History Hx Cholecystectomy: Yes Hx Appendectomy: Yes Hx Breast Surgery: Yes (breast reduction) Additional Surgical History: Right chest port-discontinued - Social History Smoking Status: Never Smoker Substance Use Type: None - Medications Home Medications: Home Medications Medication Instructions Recorded Confirmed Last Taken Type Insulin NPH Hum/Reg Insulin Hm 40 unit SQ QPM 10/05/15 10/10/18 10/09/18 20:00 History [HumuLIN 70-30 Vial] Sertraline [Zoloft] 100 mg PO QDAY 10/05/15 10/10/18 10/09/18 11:00 History Metoclopramide [Reglan TAB] 10 mg PO TID PRN #20 tab 09/13/16 10/10/18 10/09/18 21:00 Rx ALBUTEROL NEB's [Proventil 0.083% 2.5 mg IH Q3HRT PRN #30 nebu 04/11/17 10/08/18 09/13/18 Rx NEBS] oxyCODONE /ACETAMINOPHEN [Percocet 1 tab PO Q4H PRN #30 tablet 04/11/17 10/10/18 10/09/18 20:00 Rx 5/325 mg] Promethazine [Phenergan TAB] 25 mg PO Q8HR PRN #30 tab 01/08/18 10/10/18 10/09/18 09:00 Rx amLODIPine [Norvasc] 5 mg PO QDAY #30 tablet 01/08/18 10/10/18 10/09/18 20:00 Rx Insulin NPH/Regular [NovoLIN 70/30] 30 unit SUB-Q QAMDIAB #1 units 01/13/18 10/10/18 10/09/18 11:00 Rx HYDROcodone/APAP 7.5-325 [[place] 1 each PO Q6HR PRN #40 tablet 07/29/18 10/10/18 Unknown Rx 7.5-325 mg TAB] Oxycodone HCl/Acetaminophen 1 each PO Q6HR PRN #20 tablet 10/10/18 Unknown Rx [Percocet 7.5/325 mg] Ciprofloxacin HCl [Cipro] 500 mg PO BID 10 Days #20 tablet 10/22/18 Unknown Rx HYDROcodone/APAP 7.5-325 [[place] 1 each PO Q6HR PRN #12 tablet 10/22/18 Unknown Rx 7.5/325] Ondansetron [Zofran Odt] 4 mg PO Q8HR PRN #12 tab.rapdis 10/22/18 Unknown Rx Tamsulosin [Flomax] 0.4 mg PO QDAY #14 cap 10/22/18 Unknown Rx Ondansetron [Zofran Odt] 4 mg PO Q8HR PRN #20 tab.rapdis 11/10/18 Unknown Rx ED Physical Exam - General Limitations: No Limitations General appearance: alert, in no apparent distress - Head Head exam: Present: atraumatic, normocephalic - Eye Eye exam: Present: normal appearance - Neck Neck exam: Present: normal inspection, full ROM. Absent: tenderness, meningismus, lymphadenopathy - Respiratory Respiratory exam: Present: normal lung sounds bilaterally. Absent: respiratory distress, wheezes, rales, rhonchi, stridor, chest wall tenderness, accessory muscle use, decreased breath sounds, prolonged expiratory - Cardiovascular Cardiovascular Exam: Present: regular rate, normal rhythm, normal heart sounds. Absent: bradycardia, tachycardia, irregular rhythm, systolic murmur, diastolic murmur, rubs, gallop - GI/Abdominal GI/Abdominal exam: Present: soft, tenderness (diffuse), normal bowel sounds. Absent: distended, guarding, rebound, rigid, diminished bowel sounds - Extremities Exam Extremities exam: Present: normal inspection, full ROM - Back Exam Back exam: Present: normal inspection, full ROM - Neurological Exam Neurological exam: Present: alert, oriented X3 - Psychiatric Psychiatric exam: Present: normal affect, normal mood - Skin Skin exam: Present: warm, dry, intact, normal color. Absent: rash ED Course Vital Signs 11/10/18 09:05 Temperature 98.3 F Pulse Rate 62 Blood Pressure 157/83 O2 Sat by Pulse 98 Oximetry - Reevaluation(s) Reevaluation #1: 11/10/18 10:57 Patient is speaking in full sentences with no signs of distress noted. ED Medical Decision Making - Medical Decision Making This is a 42-year-old female that presents with abdominal pain. Patient is stable and was examined by me. There is diffuse abdominal tenderness. Upon exam, the patient stated that she has to leave due to her "ride" is waiting for her. Patient refused labs or imaging studies. Patient was educated and directed of my concerns about acute abdomen but patient stated will see her "kidney doctor" tomorrow. Patient was also instructed to Follow-up with a primary care doctor JENNY or if symptoms worsen and continue return to emergency room as soon as possible. At time of signing AMA, the patient does not seem toxic or ill in appearance. No acute signs of distress noted. Patient agrees to treatment plan of care. No further questions noted by the patient. Critical care attestation.: If time is entered above; I have spent that time in minutes in the direct care of this critically ill patient, excluding procedure time. ED Disposition Clinical Impression: Abdominal pain Qualifiers: Abdominal location: generalized Qualified Code(s): R10.84 - Generalized abdominal pain Nausea & vomiting Qualifiers: Vomiting type: unspecified Vomiting Intractability: unspecified Qualified Code(s): R11.2 - Nausea with vomiting, unspecified Disposition: DC-07 LEFT AGAINST MED ADVICE Is pt being admited?: No Does the pt Need Aspirin: No Condition: Undetermined Instructions: Acute Nausea and Vomiting (ED), Abdominal Pain (ED) Additional Instructions: Follow-up with a primary care doctor as soon as possible or if symptoms worsen and continue return to emergency room as soon as possible. Prescriptions: Ondansetron [Zofran Odt] 4 mg PO Q8HR PRN #20 tab.rapdis PRN Reason: Nausea Referrals: CARLOS BARBA [Primary Care Provider] - 3-5 Days MARY EATON MD [Staff Physician] - 3-5 Days [facility] [Outside] - 3-5 Days Forms: AMA Form
== END 2018-11-10 10:58 | disposition left against medical advice (07) ==
LOC: ED 08:52
CPT/HCPCS: 99281

== ENCOUNTER 2019-01-01 08:20 | Emergency (ER) | payer MEDICAID ==
[2019-01-01] MEDS ORDERED: MORPHINE IV ONE ×2 (09:19→11:43)
[2019-01-01] MEDS ORDERED: NACL 0.9% 1000 ML 1,000 ML IV ONE (09:19)
[2019-01-01] MEDS ORDERED: ZOFRAN IV ONE (09:19)
--- NOTE | 2019-01-01 09:33 | Emergency Department Report ---
ED Abdominal Pain HPI - General Chief Complaint: Nausea/Vomiting/Diarrhea Stated Complaint: VOMITING/BACK/ABD PAIN Time Seen by Provider: 01/01/19 08:46 Source: patient Mode of arrival: Ambulatory Limitations: No Limitations - History of Present Illness Initial Comments: This is a 43-year-old female nontoxic, well nourished in appearance, no acute signs of distress presents to the ED with c/o of acute on chronic back pain, with nausea vomiting and abdominal pain 1 day. Patient stated that she usually takes Morphine for her pain due to scoliosis but has not been able to keep anything down due to n/v with abdomimnal pain. Denies any injuries. Patient describes vomiting as food content and yellow gastric acid. Patient describes abdominal pain as cramping and aching with level of 8/10 diffuse. Patient denies chest pain, short of breath, fever, chills, headache, stiff neck, numbness or tingling. Patient denies any diarrhea or constipation. Patient denies any urinary symptoms. Patient denies any recent travels. Patient stated allergies to toradol and meperidine. MD Complaint: abdominal pain -: days(s) (1) Location: diffuse Radiation: none Severity: mild Severity scale (0 -10): 8 Quality: cramping, aching Consistency: constant Improves With: nothing Worsens With: nothing Associated Symptoms: nausea, vomiting. denies: diarrhea, fever, chills, constipation, dysuria, hematemesis, hematochezia, melena, hematuria, anorexia, syncope - Related Data Home Medications Medication Instructions Recorded Confirmed Last Taken Insulin NPH Hum/Reg Insulin Hm 40 unit SQ QPM 10/05/15 10/10/18 10/09/18 20:00 [HumuLIN 70-30 Vial] Sertraline [Zoloft] 100 mg PO QDAY 10/05/15 10/10/18 10/09/18 11:00 Previous Rx's Medication Instructions Recorded Last Taken Type Metoclopramide [Reglan TAB] 10 mg PO TID PRN #20 tab 09/13/16 10/09/18 21:00 Rx ALBUTEROL NEB's [Proventil 0.083% 2.5 mg IH Q3HRT PRN #30 nebu 04/11/17 09/13/18 Rx NEBS] oxyCODONE /ACETAMINOPHEN [Percocet 1 tab PO Q4H PRN #30 tablet 04/11/17 10/09/18 20:00 Rx 5/325 mg] Promethazine [Phenergan TAB] 25 mg PO Q8HR PRN #30 tab 01/08/18 10/09/18 09:00 Rx amLODIPine [Norvasc] 5 mg PO QDAY #30 tablet 01/08/18 10/09/18 20:00 Rx Insulin NPH/Regular [NovoLIN 70/30] 30 unit SUB-Q QAMDIAB #1 units 01/13/1809/21 11:00 Rx HYDROcodone/APAP 7.5-325 [[place] 1 each PO Q6HR PRN #40 tablet 07/29/18 Unknown Rx 7.5-325 mg TAB] Oxycodone HCl/Acetaminophen 1 each PO Q6HR PRN #20 tablet 10/10/18 Unknown Rx [Percocet 7.5/325 mg] Ciprofloxacin HCl [Cipro] 500 mg PO BID 10 Days #20 tablet 10/22/18 Unknown Rx HYDROcodone/APAP 7.5-325 [[place] 1 each PO Q6HR PRN #12 tablet 10/22/18 Unknown Rx 7.5/325] Ondansetron [Zofran Odt] 4 mg PO Q8HR PRN #12 tab.rapdis 10/22/18 Unknown Rx Tamsulosin [Flomax] 0.4 mg PO QDAY #14 cap 10/22/18 Unknown Rx Ondansetron [Zofran Odt] 4 mg PO Q8HR PRN #20 tab.rapdis 11/10/18 Unknown Rx Allergies Allergy/AdvReac Type Severity Reaction Status Date / Time ketorolac tromethamine Allergy Unknown Verified 10/08/18 18:00 [From Toradol] meperidine HCl [From Demerol] Allergy Shortness Verified 10/08/18 18:00 of Breath ED Review of Systems ROS: Stated complaint: VOMITING/BACK/ABD PAIN Other details as noted in HPI Constitutional: denies: chills, fever Eyes: denies: eye pain, eye discharge, vision change ENT: denies: ear pain, throat pain Respiratory: denies: cough, shortness of breath, wheezing Cardiovascular: denies: chest pain, palpitations Endocrine: no symptoms reported Gastrointestinal: abdominal pain, nausea, vomiting. denies: diarrhea, constipation, hematemesis Genitourinary: denies: urgency, dysuria, discharge Musculoskeletal: back pain. denies: joint swelling, arthralgia Skin: denies: rash, lesions Neurological: denies: headache, weakness, paresthesias Psychiatric: denies: anxiety, depression Hematological/Lymphatic: denies: easy bleeding, easy bruising ED Past Medical Hx - Past Medical History Previous Medical History?: Yes Hx Hypertension: Yes (Hospitalized in hypertensive crisis 08/28/18) Hx CVA: No Hx Congestive Heart Failure: No Hx Diabetes: Yes Hx GERD: Yes Hx Renal Disease: Yes Hx Arthritis: Yes (All joints) Hx Headaches / Migraines: Yes (Migraines) Hx Psychiatric Treatment: No Hx Asthma: Yes (no recent albuterol use) Hx COPD: No Hx HIV: No Additional medical history: spina bifida, Gastroparesis. morbid obesity, home oxygen @ 3LPM nasal cannula - Surgical History Past Surgical History?: Yes Hx Cholecystectomy: Yes Hx Appendectomy: Yes Hx Breast Surgery: Yes (breast reduction) Additional Surgical History: Right chest port-discontinued - Social History Smoking Status: Current Every Day Smoker Substance Use Type: None - Medications Home Medications: Home Medications Medication Instructions Recorded Confirmed Last Taken Type Insulin NPH Hum/Reg Insulin Hm 40 unit SQ QPM 10/05/15 10/10/18 10/09/18 20:00 History [HumuLIN 70-30 Vial] Sertraline [Zoloft] 100 mg PO QDAY 10/05/15 10/10/18 10/09/18 11:00 History Metoclopramide [Reglan TAB] 10 mg PO TID PRN #20 tab 09/13/16 10/10/18 10/09/18 21:00 Rx ALBUTEROL NEB's [Proventil 0.083% 2.5 mg IH Q3HRT PRN #30 nebu 04/11/17 10/08/18 09/13/18 Rx NEBS] oxyCODONE /ACETAMINOPHEN [Percocet 1 tab PO Q4H PRN #30 tablet 04/11/17 10/10/18 10/09/18 20:00 Rx 5/325 mg] Promethazine [Phenergan TAB] 25 mg PO Q8HR PRN #30 tab 01/08/18 10/10/18 10/09/18 09:00 Rx amLODIPine [Norvasc] 5 mg PO QDAY #30 tablet 01/08/18 10/10/18 10/09/18 20:00 Rx Insulin NPH/Regular [NovoLIN 70/30] 30 unit SUB-Q QAMDIAB #1 units 01/13/18 10/10/18 10/09/18 11:00 Rx HYDROcodone/APAP 7.5-325 [[place] 1 each PO Q6HR PRN #40 tablet 07/29/18 10/10/18 Unknown Rx 7.5-325 mg TAB] Oxycodone HCl/Acetaminophen 1 each PO Q6HR PRN #20 tablet 10/10/18 Unknown Rx [Percocet 7.5/325 mg] Ciprofloxacin HCl [Cipro] 500 mg PO BID 10 Days #20 tablet 10/22/18 Unknown Rx HYDROcodone/APAP 7.5-325 [[place] 1 each PO Q6HR PRN #12 tablet 10/22/18 Unknown Rx 7.5/325] Ondansetron [Zofran Odt] 4 mg PO Q8HR PRN #12 tab.rapdis 10/22/18 Unknown Rx Tamsulosin [Flomax] 0.4 mg PO QDAY #14 cap 10/22/18 Unknown Rx Ondansetron [Zofran Odt] 4 mg PO Q8HR PRN #20 tab.rapdis 11/10/18 Unknown Rx ED Physical Exam - General Limitations: No Limitations General appearance: alert, in no apparent distress - Head Head exam: Present: atraumatic, normocephalic - Eye Eye exam: Present: normal appearance - Neck Neck exam: Present: normal inspection, full ROM. Absent: tenderness, meningismus, lymphadenopathy - Respiratory Respiratory exam: Present: normal lung sounds bilaterally. Absent: respiratory distress, wheezes, rales, rhonchi, stridor, chest wall tenderness, accessory muscle use, decreased breath sounds, prolonged expiratory - Cardiovascular Cardiovascular Exam: Present: regular rate, normal rhythm, tachycardia, normal heart sounds. Absent: bradycardia, irregular rhythm, systolic murmur, diastolic murmur, rubs, gallop - GI/Abdominal GI/Abdominal exam: Present: soft, tenderness (diffuse), normal bowel sounds. Absent: distended, guarding, rebound, rigid, diminished bowel sounds - Expanded GI/Abdominal Exam Expanded GI/Abdominal exam: Absent: psoas sign, Pryor's sign, Rovsing's sign, tenderness at [place]'s [place], ascites - Rectal Rectal exam: Present: deferred - Extremities Exam Extremities exam: Present: normal inspection, full ROM - Back Exam Back exam: Present: normal inspection, full ROM, paraspinal tenderness. Absent: tenderness, CVA tenderness (R), CVA tenderness (L), muscle spasm, vertebral tenderness, rash noted - Neurological Exam Neurological exam: Present: alert, oriented X3 - Psychiatric Psychiatric exam: Present: normal affect, normal mood - Skin Skin exam: Present: warm, dry, intact, normal color. Absent: rash ED Course Vital Signs 01/01/19 01/01/19 01/01/19 08:32 09:46 10:16 Temperature 98.5 F Pulse Rate 99 H Respiratory 20 18 18 Rate Blood Pressure 131/95 O2 Sat by Pulse 99 Oximetry 01/01/19 01/01/19 12:17 12:26 Temperature Pulse Rate Respiratory 18 17 Rate Blood Pressure O2 Sat by Pulse Oximetry - Reevaluation(s) Reevaluation #1: 01/01/19 09:35 Patient is speaking in full sentences with no signs of distress noted. ED Medical Decision Making - Lab Data Result diagrams: 01/01/19 09:41 01/01/19 12:05 - Medical Decision Making This is a 42-year-old female that presents with abdominal pain. Patient is stable and was examined by me. There is diffuse abdominal tenderness. Upon exam, the patient stated that she has to leave due to her "ride" is waiting for her. Patient refused imaging studies. Patient was educated and directed of my concerns about acute abdomen but patient stated will see her primary care doctor tomorrow. Patient was also instructed to Follow-up with a primary care doctor JENNY or if symptoms worsen and continue return to emergency room as soon as possible. At time of signing AMA, the patient does not seem toxic or ill in appearance. No acute signs of distress noted. Patient agrees to treatment plan of care. No further questions noted by the patient. Critical care attestation.: If time is entered above; I have spent that time in minutes in the direct care of this critically ill patient, excluding procedure time. ED Disposition Clinical Impression: Abdominal pain Qualifiers: Abdominal location: generalized Qualified Code(s): R10.84 - Generalized abdominal pain Nausea & vomiting Qualifiers: Vomiting type: unspecified Vomiting Intractability: non-intractable Qualified Code(s): R11.2 - Nausea with vomiting, unspecified Disposition: DC-07 LEFT AGAINST MED ADVICE Is pt being admited?: No Does the pt Need Aspirin: No Condition: Undetermined Instructions: Acute Nausea and Vomiting (ED), Acute Abdominal Pain (ED) Additional Instructions: You are signing against medical advice. Your symptoms and signs can be very critical and crucial. This could cause to serious conditions, complications, and/or . Follow-up with a primary care doctor in 3-5 days or if symptoms worsen and continue return to emergency room as soon as possible. Referrals: PRIMARY CARE, [Referring] - 3-5 Days MARY EATON MD [Staff Physician] - 3-[address] [facility] [place] [Outside] - 3-5 Days [facility] [Outside] - 3-5 Days Forms: AMA Form
[2019-01-01 09:57] LABS: Basophils % (Auto) 0.6 % (0.0-1.8); Eosinophils % (Auto) 0.4 % (0.0-4.3); Hematocrit 33.3 % (30.3-42.9); Hemoglobin 11.2 gm/dl (10.1-14.3); Lymphocytes # (Auto) 1.9 K/mm3 (1.2-5.4); Mean Corpuscular HGB Conc 34 % (30-34); Mean Corpuscular Volume 95 fl (79-97); Monocytes # (Auto) 0.4 K/mm3 (0.0-0.8); Monocytes % (Auto) 5.4 % (0.0-7.3); Platelet Count 282 K/mm3 (140-440); Red Blood Count 3.51 M/mm3 (3.65-5.03); Red Cell Distribution Width 16.4 % (13.2-15.2)
[2019-01-01] MEDS ORDERED: BENADRYL ONE ×2 (09:58→12:22)
[2019-01-01] MEDS ORDERED: BENADRYL IV ONE ×2 (09:59→12:20)
[2019-01-01 10:47] LABS: Alanine Aminotransferase TNR units/L (7-56); Albumin TNR g/dL (3.9-5); BUN/Creatinine Ratio TNR; Bilirubin,Direct TNR mg/dL (0-0.2); Blood Urea Nitrogen TNR mg/dL (7-17); Calcium TNR mg/dL (8.4-10.2)
[2019-01-01 10:48] LABS: Hemolysis Index TNR
[2019-01-01 12:39] LABS: Alanine Aminotransferase 8 units/L (7-56); Albumin 3.7 g/dL (3.9-5); BUN/Creatinine Ratio 18; Blood Urea Nitrogen 23 mg/dL (7-17); Calcium 9.2 mg/dL (8.4-10.2); Hemolysis Index 16
[2019-01-01 12:40] LABS: Bilirubin,Direct < 0.2 mg/dL (0-0.2)
[2019-01-01 13:37] VITALS: BP 177/110
[2019-01-01 13:42] LABS: Bacteria,Urine 1+ /HPF (Negative); Bilirubin,Urine NEG (Negative); Blood,Urine NEG (Negative); Color,Urine Yellow (Yellow); Mucus,Urine FEW /HPF; Urobilinogen,Urine < 2.0 mg/dL (<2.0)
== END 2019-01-01 13:44 | disposition left against medical advice (07) ==
LOC: ED 08:20
DX: R10.84 Generalized abdominal pain (principal); R11.2 Nausea with vomiting, unspecified; I10 Essential (primary) hypertension; K21.9 Gastro-esophageal reflux disease without esophagitis; G43.909 Migraine, unspecified, not intractable, without status migrainosus; J45.909 Unspecified asthma, uncomplicated; E11.43 Type 2 diabetes mellitus with diabetic autonomic (poly)neuropathy; K31.84 Gastroparesis; F17.200 Nicotine dependence, unspecified, uncomplicated; M19.90 Unspecified osteoarthritis, unspecified site; E66.01 Morbid (severe) obesity due to excess calories; Z79.4 Long term (current) use of insulin; Z68.43 Body mass index [BMI] 50.0-59.9, adult; Z90.49 Acquired absence of other specified parts of digestive tract; Z79.899 Other long term (current) drug therapy; Z88.6 Allergy status to analgesic agent
CPT/HCPCS: 36415; 80048; 80076; 81001; 83690; 84703; 85025; 96361; 96374; 96375; 96376; 99283; J1200; J2270; J2405; J7030

== ENCOUNTER 2019-01-08 12:57 | Inpatient (IN) | payer MEDICAID ==
--- NOTE | 2019-01-08 13:06 | Emergency Department Report ---
Blank Doc - Documentation Documentation: This is a 43-year-old female that presents with chest pain with SOB. Patient also has cough. Patient was seen by me last visits and after treatment left AMA. Denies f/u with PCP. This initial assessment/diagnostic orders/clinical plan/treatment(s) is/are subject to change based on patient's health status, clinical progression and re- assessment by fellow clinical providers in the ED. Further treatment and workup at subsequent clinical providers discretion. Patient/guardians urged not to elope from the ED as their condition may be serious if not clinically assessed and managed. Initial orders include: 1- Patient sent to [facility] for further evaluation and treatment 2- CXR 3- labs 4- EKG
[2019-01-08 13:40] LABS: Basophils % (Auto) 0.1 % (0.0-1.8); Eosinophils # (Auto) 0.1 K/mm3 (0.0-0.4); Hematocrit 23.4 % (30.3-42.9); Hemoglobin 7.7 gm/dl (10.1-14.3); Lymphocytes # (Auto) 1.4 K/mm3 (1.2-5.4); Lymphocytes % (Auto) 24.2 % (13.4-35.0); Mean Corpuscular HGB Conc 33 % (30-34); Mean Corpuscular Volume 96 fl (79-97); Monocytes # (Auto) 0.3 K/mm3 (0.0-0.8); Monocytes % (Auto) 5.1 % (0.0-7.3); Platelet Count 235 K/mm3 (140-440); Red Blood Count 2.43 M/mm3 (3.65-5.03); Red Cell Distribution Width 15.7 % (13.2-15.2)
[2019-01-08 13:57] LABS: Calcium 8.5 mg/dL (8.4-10.2)
[2019-01-08] MEDS ORDERED: MORPHINE IV ONE (14:41)
[2019-01-08] MEDS ORDERED: LEVAQUIN 500MG/100ML 500 MG/100 ML BAG IV ONE (16:09)
--- NOTE | 2019-01-08 16:52 | Emergency Department Report ---
- General Chief Complaint: Upper Respiratory Infection Stated Complaint: CHEST/BACK PAIN Time Seen by Provider: 01/08/19 13:04 Source: patient Mode of arrival: Ambulatory Limitations: No Limitations - History of Present Illness Initial Comments: Patient is a 43-year-old [place] female who is presenting with cough for the past 3 days. Patient states she has some greenish sputum and she's having pain in her chest and back secondary to coughing. Patient also states it hurts to take a deep breath and she had a syncopal episode this morning after coughing. Patient denies any fever nausea vomiting at this time. Patient does have a history of renal disease and was on dialysis for some time but her kidney function improved and she was taken off dialysis approximately a year ago. - Related Data Home Medications Medication Instructions Recorded Confirmed Last Taken Insulin NPH Hum/Reg Insulin Hm 40 unit SQ QPM 10/05/15 10/10/18 10/09/18 20:00 [HumuLIN 70-30 Vial] Sertraline [Zoloft] 100 mg PO QDAY 10/05/15 10/10/18 10/09/18 11:00 Previous Rx's Medication Instructions Recorded Last Taken Type Metoclopramide [Reglan TAB] 10 mg PO TID PRN #20 tab 09/13/16 10/09/18 21:00 Rx ALBUTEROL NEB's [Proventil 0.083% 2.5 mg IH Q3HRT PRN #30 nebu 04/11/17 09/13/18 Rx NEBS] oxyCODONE /ACETAMINOPHEN [Percocet 1 tab PO Q4H PRN #30 tablet 04/11/17 10/09/18 20:00 Rx 5/325 mg] Promethazine [Phenergan TAB] 25 mg PO Q8HR PRN #30 tab 01/08/18 10/09/18 09:00 Rx amLODIPine [Norvasc] 5 mg PO QDAY #30 tablet 01/08/18 10/09/18 20:00 Rx Insulin NPH/Regular [NovoLIN 70/30] 30 unit SUB-Q QAMDIAB #1 units 01/13/18 10/09/18 11:00 Rx HYDROcodone/APAP 7.5-325 [[place]is 1 each PO Q6HR PRN #40 tablet 07/29/18 Unknown Rx 7.5-325 mg TAB] Oxycodone HCl/Acetaminophen 1 each PO Q6HR PRN #20 tablet 10/10/18 Unknown Rx [Percocet 7.5/325 mg] Ciprofloxacin HCl [Cipro] 500 mg PO BID 10 Days #20 tablet 10/22/18 Unknown Rx HYDROcodone/APAP 7.5-325 [[place]is 1 each PO Q6HR PRN #12 tablet 10/22/18 Unknown Rx 7.5/325] Ondansetron [Zofran Odt] 4 mg PO Q8HR PRN #12 tab.rapdis 10/22/18 Unknown Rx Tamsulosin [Flomax] 0.4 mg PO QDAY #14 cap 10/22/18 Unknown Rx Ondansetron [Zofran Odt] 4 mg PO Q8HR PRN #20 tab.rapdis 11/10/18 Unknown Rx Allergies Allergy/AdvReac Type Severity Reaction Status Date / Time ketorolac tromethamine Allergy Unknown Verified 10/08/18 18:00 [From Toradol] meperidine HCl [From Demerol] Allergy Shortness Verified 10/08/18 18:00 of Breath ED Review of Systems ROS: Stated complaint: CHEST/BACK PAIN Other details as noted in HPI Comment: All other systems reviewed and negative ED Past Medical Hx - Past Medical History Hx Hypertension: Yes (Hospitalized in hypertensive crisis 08/28/18) Hx CVA: No Hx Congestive Heart Failure: No Hx Diabetes: Yes Hx GERD: Yes Hx Renal Disease: Yes Hx Arthritis: Yes (All joints) Hx Headaches / Migraines: Yes (Migraines) Hx Psychiatric Treatment: No Hx Asthma: Yes (no recent albuterol use) Hx COPD: No Hx HIV: No Additional medical history: spina bifida, Gastroparesis. morbid obesity, home oxygen @ 3LPM nasal cannula - Surgical History Past Surgical History?: Yes Hx Cholecystectomy: Yes Hx Appendectomy: Yes Hx Breast Surgery: Yes (breast reduction) Additional Surgical History: Right chest port-discontinued - Social History Smoking Status: Never Smoker Substance Use Type: None - Medications Home Medications: Home Medications Medication Instructions Recorded Confirmed Last Taken Type Insulin NPH Hum/Reg Insulin Hm 40 unit SQ QPM 10/05/15 10/10/18 10/09/18 20:00 History [HumuLIN 70-30 Vial] Sertraline [Zoloft] 100 mg PO QDAY 10/05/15 10/10/18 10/09/18 11:00 History Metoclopramide [Reglan TAB] 10 mg PO TID PRN #20 tab 09/13/16 10/10/18 10/09/18 21:00 Rx ALBUTEROL NEB's [Proventil 0.083% 2.5 mg IH Q3HRT PRN #30 nebu 04/11/17 10/08/18 09/13/18 Rx NEBS] oxyCODONE /ACETAMINOPHEN [Percocet 1 tab PO Q4H PRN #30 tablet 04/11/17 10/10/18 10/09/18 20:00 Rx 5/325 mg] Promethazine [Phenergan TAB] 25 mg PO Q8HR PRN #30 tab 01/08/18 10/10/18 8 09:00 Rx amLODIPine [Norvasc] 5 mg PO QDAY #30 tablet 01/08/18 10/10/18 10/09/18 20:00 Rx Insulin NPH/Regular [NovoLIN 70/30] 30 unit SUB-Q QAMDIAB #1 units 01/13/18 10/10/18 10/09/18 11:00 Rx HYDROcodone/APAP 7.5-325 [[place]is 1 each PO Q6HR PRN #40 tablet 07/29/18 10/10/18 Unknown Rx 7.5-325 mg TAB] Oxycodone HCl/Acetaminophen 1 each PO Q6HR PRN #20 tablet 10/10/18 Unknown Rx [Percocet 7.5/325 mg] Ciprofloxacin HCl [Cipro] 500 mg PO BID 10 Days #20 tablet 10/22/18 Unknown Rx HYDROcodone/APAP 7.5-325 [[place]is 1 each PO Q6HR PRN #12 tablet 10/22/18 Unknown Rx 7.5/325] Ondansetron [Zofran Odt] 4 mg PO Q8HR PRN #12 tab.rapdis 10/22/18 Unknown Rx Tamsulosin [Flomax] 0.4 mg PO QDAY #14 cap 10/22/18 Unknown Rx Ondansetron [Zofran Odt] 4 mg PO Q8HR PRN #20 tab.rapdis 11/10/18 Unknown Rx ED Physical Exam - General Limitations: No Limitations General appearance: alert, in no apparent distress - Head Head exam: Present: atraumatic, normocephalic - Eye Eye exam: Present: normal appearance - ENT ENT exam: Present: mucous membranes moist - Neck Neck exam: Present: normal inspection - Respiratory Respiratory exam: Present: rales, rhonchi (the bilateral base). Absent: normal lung sounds bilaterally, respiratory distress, wheezes - Cardiovascular Cardiovascular Exam: Present: regular rate, normal rhythm. Absent: systolic mur mur, diastolic murmur, rubs, gallop - GI/Abdominal GI/Abdominal exam: Present: soft, normal bowel sounds. Absent: distended, tenderness, guarding, rebound - Extremities Exam Extremities exam: Present: normal inspection - Back Exam Back exam: Present: normal inspection - Neurological Exam Neurological exam: Present: alert, oriented X3 - Psychiatric Psychiatric exam: Present: normal affect, normal mood - Skin Skin exam: Present: warm, dry, intact, normal color. Absent: rash ED Course Vital Signs 01/08/19 13:05 Temperature 98.9 F Pulse Rate 116 H Respiratory 22 Rate Blood Pressure 138/75 O2 Sat by Pulse 97 Oximetry ED Medical Decision Making - Lab Data Result diagrams: 01/08/19 13:24 01/08/19 13:24 Lab Results 01/08/19 01/08/19 Range/Units 13:24 13:24 WBC 5.7 (4.5-11.0) K/mm3 RBC 2.43 L (3.65-5.03) M/mm3 Hgb 7.7 L (10.1-14.3) gm/dl Hct 23.4 L (30.3-42.9) % MCV 96 (79-97) fl MCH 32 (28-32) pg MCHC 33 (30-34) % RDW 15.7 H (13.2-15.2) % Plt Count 235 (140-440) K/mm3 Lymph % (Auto) 24.2 (13.4-35.0) % [place] % (Auto) 5.1 (0.0-7.3) % Eos % (Auto) 2.0 (0.0-4.3) % Baso % (Auto) 0.1 (0.0-1.8) % Lymph # 1.4 (1.2-5.4) K/mm3 [place] # 0.3 (0.0-0.8) K/mm3 Eos # 0.1 (0.0-0.4) K/mm3 Baso # 0.0 (0.0-0.1) K/mm3 Seg Neutrophils % 68.6 (40.0-70.0) % Seg Neutrophils # 3.9 (1.8-7.7) K/mm3 Sodium 132 L (137-145) mmol/L Potassium 4.4 (3.6-5.0) mmol/L Chloride 99.9 (98-107) mmol/L Carbon Dioxide 21 L (22-30) mmol/L Anion Gap 16 mmol/L BUN 44 H (7-17) mg/dL Creatinine 1.9 H (0.7-1.2) mg/dL Estimated GFR 35 ml/min BUN/Creatinine Ratio 23 % Glucose 305 H (65-100) mg/dL Calcium 8.5 (8.4-10.2) mg/dL Troponin T 0.014 (0.00-0.029) ng/mL - EKG Data -: EKG Interpreted by Vt EKG shows normal: sinus rhythm, axis, intervals, QRS complexes, ST-T waves Rate: tachycardia (105) - Radiology Data Radiology results: image reviewed (patient's chest x-ray shows cardiomegaly with bilateral lower lobe infiltrates. Differential includes infectious process no pulmonary edema.) - Medical Decision Making Patient's white count is normal she does have a bilateral lower lobe infiltrate of the could be pneumonia but could also be some component edema. Patient's states that her renal function are completely removed versus renal function is not normal today. Patient also had a second episode and chest pain is pleuritic. Patient was to be sent to V/Q to see if this would help give further light on the patient's clinical position. The IV line infiltrated during the pr ocedure. Patient to be admitted to the hospitalist service and she may receive an additional V/Q scan tomorrow. Patient had blood cultures ordered patient was started on Levaquin. Critical care attestation.: If time is entered above; I have spent that time in minutes in the direct care of this critically ill patient, excluding procedure time. ED Disposition Clinical Impression: Respiratory distress, Pleuritic chest pain Pneumonia Qualifiers: Pneumonia type: due to unspecified organism Laterality: bilateral Lung location: lower lobe of lung Qualified Code(s): J18.1 - Lobar pneumonia, unspecified organism Syncope Qualifiers: Syncope type: unspecified Qualified Code(s): R55 - Syncope and collapse Acute on chronic renal failure Qualifiers: Acute renal failure type: unspecified Chronic kidney disease stage: unspecified stage Qualified Code(s): N17.9 - Acute kidney failure, unspecified; N18.9 - Chronic kidney disease, unspecified Disposition: OP ADMIT IP TO THIS HOSP Is pt being admited?: Yes Does the pt Need Aspirin: No Condition: Stable Instructions: Bacterial Pneumonia (ED), Syncope (ED), Chest Pain (ED) Time of Disposition: 16:55
[2019-01-08] MEDS ORDERED: MORPHINE ONE (17:04)
--- NOTE | 2019-01-08 17:14 | History and Physical Report ---
History of Present Illness Chief complaint: My chest hurts,and im coughing a lot History of present illness: 43 YO Female with DM, HTN, Resolved ESRD not undergoing dialysis , [place], CHF, Spina bifida, Chronic back pain and opiod dependence, ANEMIA , Gastroparesis presents to ED for evaluation. Pt states that she has experienced pain in her chest over the past 3 days. Pt states that pain episodes are intermittent with increased frequency over the past 1 day. Pt states that pain is 5-10/10, substernal, nonradiating, crushing in nature, not worsened with exertion, not relieved with rest, associated with shortness of breath as coughing. Pt acknowledges shortness of breath, decreased exercise tolerance and dypsnea on exertion, as well as an episode of syncope today after an episode of coughing. Pt denies fever, chills, Palpitations, hemoptysis, NVD, syncope, trauma, BRBPR, Pt seen and evaluated in ED and found to have Acute Renal Failure, Acidosis, and Chest pain . Pt admitted to telemetry and initiated on Chest Pain Protocol. Cardiology consulted in ED. All listed medication reconciled at time of exam. Pt admitted on 10/10/18. Admission reviewed. Past History Past Medical History: diabetes, heart failure, hypertension, other ([place], Spina bifida) Past Surgical History: appendectomy (appendectomy, cholecystectomy, Other (Breast surgery, Right Chest Port)), cholecystectomy, Other ((Breast surgery, Right Chest Port)) Social history: , lives with family. denies: smoking, alcohol abuse, prescription drug abuse Family history: diabetes, hypertension Medications and Allergies Allergies Allergy/AdvReac Type Severity Reaction Status Date / Time ketorolac tromethamine Allergy Unknown Verified 10/08/18 18:00 [From Toradol] meperidine HCl [From Demerol] Allergy Shortness Verified 10/08/18 18:00 of Breath Home Medications Medication Instructions Recorded Confirmed Last Taken Type Insulin NPH Hum/Reg Insulin Hm 30 - 40 unit SQ QAMDIAB 10/05/15 01/08/19 10/09/18 20:00 History [HumuLIN 70-30 Vial] Amitriptyline [Elavil] 50 mg PO QHS 01/08/19 01/08/19 Unknown History Famotidine [Pepcid] 20 mg PO BID 01/08/19 01/08/19 Unknown History Gabapentin [Neurontin] 600 mg PO TID 01/08/19 01/08/19 Unknown History Morphine ER [Ms Contin ER] 15 mg PO Q12H 01/08/19 01/08/19 Unknown History Oxycodone HCl/Acetaminophen 1 each PO Q4H PRN 01/08/19 01/08/19 Unknown History [Percocet 10/325 mg] Promethazine [Phenergan TAB] 25 mg PO Q8HR PRN 01/08/19 01/08/19 Unknown History amLODIPine [Norvasc] 10 mg PO DAILY 01/08/19 01/08/19 Unknown History Review of Systems Constitutional: no weight loss, no weight gain, no fever, no chills Breasts: no change in shape, no swelling, no mass Cardiovascular: chest pain, shortness of breath, dyspnea on exertion, decreased exercise tolerance, no palpitations, no rapid/irregular heart beat Exam - Constitutional Vitals: Temp Pulse Resp BP Pulse Ox 98.9 F 116 H 22 138/75 97 01/08/19 13:05 01/08/19 13:05 01/08/19 13:05 01/08/19 13:05 01/08/19 13:05 General appearance: Present: mild distress, obese - EENT Eyes: Present: PERRL ENT: hearing intact, clear oral mucosa - Neck Neck: Present: supple, normal ROM - Respiratory Respiratory effort: normal Respiratory: bilateral: CTA - Cardiovascular Heart Sounds: Present: S1 & S2. Absent: rub, click - Extremities Extremities: pulses symmetrical, No edema Peripheral Pulses: within normal limits - Abdominal General gastrointestinal: Present: soft, non-tender, non-distended, normal bowel sounds Female genitourinary: Present: normal - Integumentary Integumentary: Present: clear, warm, dry - Musculoskeletal Musculoskeletal: gait normal, strength equal bilaterally - Psychiatric Psychiatric: appropriate mood/affect, intact judgment & insight - Neurologic Neurologic: CNII-XII intact, moves all extremities Results - Labs CBC & Chem 7: 01/08/19 13:24 01/08/19 13:24 Labs: Abnormal lab results 01/08/19 01/08/19 Range/Units 13:24 13:24 RBC 2.43 L (3.65-5.03) M/mm3 Hgb 7.7 L (10.1-14.3) gm/dl Hct 23.4 L (30.3-42.9) % RDW 15.7 H (13.2-15.2) % Sodium 132 L (137-145) mmol/L Carbon Dioxide 21 L (22-30) mmol/L BUN 44 H (7-17) mg/dL Creatinine 1.9 H (0.7-1.2) mg/dL Glucose 305 H (65-100) mg/dL Assessment and Plan - Patient Problems (1) Chest pain Current Visit: Yes Status: Acute Qualifiers: Ischemic chest pain type: stable angina pectoris Plan to address problem: Chest Pain Protocol: Admit to telemetry, serial cardiac enzymes, ekg, echo, bnp, supplemental oxygen, nitro, Mophine, aspirin, cardiology consulted in ED, Echo. VQ Scan ordered and pending at time of exam,. (2) Obesity hypoventilation syndrome Current Visit: Yes Status: Acute Plan to address problem: Supplemental oxygen, chest x ray, NIPPV as clinically indicated, pulse oximetry, balanced diet, increased physical activity at discharge. (3) Acidosis Current Visit: Yes Status: Acute Plan to address problem: IVF resuscitation therapy as tolerated, repeat bmp in am. (4) Acute on chronic renal failure Current Visit: Yes Status: Acute Qualifiers: Acute renal failure type: unspecified Chronic kidney disease stage: unspecified stage Qualified Code(s): N17.9 - Acute kidney failure, unspecified; N18.9 - Chronic kidney disease, unspecified Plan to address problem: IVF resuscitation therapy, monitor uop q shift, avoid nephrotoxic agents, repeat bmp to monitor serum creatnine. (5) DVT prophylaxis Current Visit: No Status: Acute Plan to address problem: SCD to BLE while in bed.
--- NOTE | 2019-01-08 17:18 | XRay Report ---
PROCEDURE: XR CHEST ROUTINE 2V HISTORY: Chest Pain COMPARISONS: None currently available. FINDINGS: Hypoaerated lungs accentuate the pulmonary markings and cardiac silhouette. Mild cardiomegaly. Prominent bilateral pulmonary markings. Patchy airspace opacities in both perihilar regions and lower lobes. No blunted costophrenic angles. No pneumothorax. There are no suspicious osseous lesions. IMPRESSION: * Suspect pulmonary vascular congestion with edema. Differential diagnosis includes pneumonia and ac [place] pneumonitis. * Mild cardiomegaly. This document is electronically signed by Clive Ye MD., January 08 2019 05:16:27 PM ET
[2019-01-08] MEDS ORDERED: BENADRYL ONE (17:19)
[2019-01-08] MEDS ORDERED: SODIUM CHLORIDE FLUSH SYRINGE 10 ML IV PRN ×2 (17:47)
[2019-01-08] MEDS ORDERED: BABY ASPIRIN PO STA (17:47)
[2019-01-08] MEDS ORDERED: TYLENOL PO PRN (17:47)
[2019-01-08] MEDS ORDERED: ZOFRAN IV PRN (17:47)
[2019-01-08] MEDS ORDERED: NITROSTAT SL PRN (17:47)
[2019-01-08] MEDS ORDERED: PROVENTIL IH PRN (17:47)
[2019-01-08] MEDS ORDERED: PHENERGAN PO PRN (17:51)
[2019-01-08] MEDS ORDERED: D50W (25GM) Syringe IV PRN (17:52)
[2019-01-08] MEDS ORDERED: BABY ASPIRIN ONE (18:06)
[2019-01-08 18:47] LABS: Chol/HDL Ratio 2.21 %
[2019-01-08] MEDS: NEURONTIN PO SCH (21:45)
[2019-01-08] MEDS: PEPCID PO SCH (21:46)
[2019-01-08] MEDS: ELAVIL PO SCH (21:46)
[2019-01-08] MEDS: SODIUM CHLORIDE FLUSH SYRINGE 10 ML IV SCH (21:47)
[2019-01-08] MEDS: MORPHINE IV PRN (21:47)
[2019-01-08] MEDS: HumaLOG SUB-Q SCH (21:48)
[2019-01-08] MEDS ORDERED: AMITRIPTYLINE 50 MG PO SCH (22:00)
[2019-01-09] MEDS: MORPHINE IV PRN ×3 (00:51→22:04)
[2019-01-09] MEDS: HumaLOG SUB-Q SCH ×4 (02:52→17:34)
[2019-01-09 04:50] LABS: Basophils % (Auto) 0.3 % (0.0-1.8); Eosinophils # (Auto) 0.1 K/mm3 (0.0-0.4); Eosinophils % (Auto) 1.8 % (0.0-4.3); Hematocrit 21.8 % (30.3-42.9); Lymphocytes # (Auto) 1.4 K/mm3 (1.2-5.4); Mean Corpuscular HGB Conc 32 % (30-34); Mean Corpuscular Volume 98 fl (79-97); Monocytes # (Auto) 0.3 K/mm3 (0.0-0.8); Monocytes % (Auto) 5.6 % (0.0-7.3); Platelet Count 229 K/mm3 (140-440); Red Blood Count 2.22 M/mm3 (3.65-5.03); Red Cell Distribution Width 16.5 % (13.2-15.2)
[2019-01-09 04:54] LABS: Calcium 8.5 mg/dL (8.4-10.2)
[2019-01-09] MEDS: NEURONTIN PO SCH ×2 (10:44→13:41)
[2019-01-09] MEDS: NORVASC PO SCH (10:44)
[2019-01-09] MEDS: PEPCID PO SCH ×2 (10:44→21:50)
[2019-01-09] MEDS: SODIUM CHLORIDE FLUSH SYRINGE 10 ML IV SCH ×2 (10:44→21:52)
[2019-01-09] MEDS: PERCOCET 5/325 PO PRN ×2 (10:47→17:34)
--- NOTE | 2019-01-09 11:39 | Consultation ---
History of Present Illness Consult date: 01/09/19 Consult reason: chest pain History of present illness: Patient is a 43 year old woman with multiple medical problems. She gives a history of Diabetes, Hypertension, Spina bifida, chronic Anemia and Gastroparesis. Patient also reports a history of renal disease. Patient reports she was on dialysis for some time but her kidney function improved and she was taken off dialysis approximately a year ago. There is no history of coronary artery dise ase. An echocardiogram done in 2017 documents moderate LVH with a normal left ventricular systolic function, ejection fraction 65-65%. Patient presented with coughs and congestion for the past 3 days. Patient also reports chest pain with position changes, when deep breathing and following coughs. Cardiac consultation was requested. Chest x-ray reports bilateral lower lobe infiltrates with mild interstitial edema. Labs reveals severe anemia with HCT 21.8 and renal failure, creatinine 1.9. Blood glucose also noted uncontrolled, greater than 300 on presentation. 12 lead ECG is benign, a normal sinus rhythm. Past History Past Medical History: diabetes, hypertension, renal failure, other (Spina bifida) Past Surgical History: appendectomy, cholecystectomy, Other ((Breast surgery, Right Chest Port)) Social history: , lives with family. denies: smoking, alcohol abuse, prescription drug abuse Family history: diabetes, hypertension Medications and Allergies Allergies Allergy/AdvReac Type Severity Reaction Status Date / Time ketorolac tromethamine Allergy Unknown Verified 10/08/18 18:00 [From Toradol] meperidine HCl [From Demerol] Allergy Shortness Verified 10/08/18 18:00 of Breath Home Medications Medication Instructions Recorded Confirmed Last Taken Type Insulin NPH Hum/Reg Insulin Hm 30 - 40 unit SQ QAMDIAB 10/05/15 01/08/19 10/09/18 20:00 History [HumuLIN 70-30 Vial] Amitriptyline [Elavil] 50 mg PO QHS 01/08/19 01/08/19 Unknown History Famotidine [Pepcid] 20 mg PO BID 01/08/19 01/08/19 Unknown History Gabapentin [Neurontin] 600 mg PO TID 01/08/19 01/08/19 Unknown History Morphine ER [Ms Contin ER] 15 mg PO Q12H 01/08/19 01/08/19 Unknown History Oxycodone HCl/Acetaminophen 1 each PO Q4H PRN 01/08/19 01/08/19 Unknown History [Percocet 10/325 mg] Promethazine [Phenergan TAB] 25 mg PO Q8HR PRN 01/08/19 01/08/19 Unknown History amLODIPine [Norvasc] 10 mg PO DAILY 01/08/19 01/08/19 Unknown History Active Meds: Active Medications Acetaminophen (Tylenol) 650 mg PO Q4H PRN PRN Reason: Pain MILD(1-3)/Fever >100.5/[place] Albuterol (Proventil) 2.5 mg IH Q4HRT PRN PRN Reason: Shortness Of Breath Amitriptyline HCl (Elavil) 50 mg PO QHS [facility] Last Admin: 01/08/19 21:46 Dose: 50 mg Documented by: Amlodipine Besylate (Norvasc) 10 mg PO DAILY [facility] Last Admin: 01/09/19 10:44 Dose: 10 mg Documented by: Dextrose (D50w (25gm) Syringe) 50 ml IV PRN PRN PRN Reason: Hypoglycemia Famotidine (Pepcid) 10 mg PO BID [facility] Last Admin: 01/09/19 10:44 Dose: 10 mg Documented by: Gabapentin (Neurontin) 600 mg PO TID [facility] Last Admin: 01/09/19 10:44 Dose: 600 mg Documented by: Insulin Human Lispro (Humalog) 0 unit SUB-Q Q6HR [facility]; Protocol Last Admin: 01/09/19 06:23 Dose: Not Given Documented by: Morphine Sulfate (Morphine) 2 mg IV Q4H PRN PRN Reason: Pain, Moderate (4-6) Last Admin: 01/09/19 06:52 Dose: 2 mg Documented by: Nitroglycerin (Nitrostat) 0.4 mg SL Q5M PRN PRN Reason: Chest Pain Ondansetron HCl (Zofran) 4 mg IV Q8H PRN PRN Reason: Nausea And Vomiting Oxycodone/Acetaminophen (Percocet 5/325) 1 tab PO Q6H PRN PRN Reason: Pain, Moderate (4-6) Last Admin: 01/09/19 10:47 Dose: 1 tab Documented by: Promethazine HCl (Phenergan) 25 mg PO Q8HR PRN PRN Reason: Nausea Sodium Chloride (Sodium Chloride Flush Syringe 10 Ml) 10 ml IV BID [facility] Last Admin: 01/09/19 10:44 Dose: 10 ml Documented by: Sodium Chloride (Sodium Chloride Flush Syringe 10 Ml) 10 ml IV PRN PRN PRN Reason: LINE FLUSH Sodium Chloride (Sodium Chloride Flush Syringe 10 Ml) 10 ml IV PRN PRN PRN Reason: LINE FLUSH Physical Examination Vital Signs Temp Pulse Resp BP Pulse Ox 98.9 F 116 H 22 138/75 97 01/08/19 13:05 01/08/19 13:05 01/08/19 13:05 01/08/19 13:05 01/08/19 13:05 General appearance: no acute distress, obese HEENT: Positive: PERRL Neck: Positive: trachea midline Cardiac: Positive: Reg Rate and Rhythm Lungs: Positive: Decreased Breath Sounds Neuro: Positive: Grossly Intact Results 01/09/19 04:23 01/09/19 04:23 Lipids 01/08/19 Range/Units 18:01 Triglycerides 96 (2-149) mg/dL Cholesterol 135 (50-199) mg/dL HDL Cholesterol 61 H (40-59) mg/dL Cholesterol/HDL Ratio 2.21 % CBC 01/08/19 01/09/19 Range/Units 13:24 04:23 WBC 5.7 6.0 (4.5-11.0) K/mm3 RBC 2.43 L 2.22 L (3.65-5.03) M/mm3 Hgb 7.7 L 7.0 L (10.1-14.3) gm/dl Hct 23.4 L 21.8 L (30.3-42.9) % Plt Count 235 229 (140-440) K/mm3 Lymph # 1.4 1.4 (1.2-5.4) K/mm3 [place] # 0.3 0.3 (0.0-0.8) K/mm3 Eos # 0.1 0.1 (0.0-0.4) K/mm3 Baso # 0.0 0.0 (0.0-0.1) K/mm3 Comprehensive Metabolic Panel 01/08/19 01/09/19 Range/Units 13:24 04:23 Sodium 132 L 134 L (137-145) mmol/L Potassium 4.4 4.6 (3.6-5.0) mmol/L Chloride 99.9 99.0 (98-107) mmol/L Carbon Dioxide 21 L 21 L (22-30) mmol/L BUN 44 H 36 H (7-17) mg/dL Creatinine 1.9 H 1.8 H (0.7-1.2) mg/dL Glucose 305 H 334 H (65-100) mg/dL Calcium 8.5 8.5 (8.4-10.2) mg/dL Assessment and Plan Pneumonia Diabetes -uncontrolled Pleuritic chest pain Hypertension Severe Anemia Hx of Gastroparesis Acute on chronic renal failure previously on dialysis An echocardiogram done in 2017 documents moderate LVH with a normal left ventricular systolic function, ejection fraction 65-65%.
--- NOTE | 2019-01-09 12:57 | Nuclear Medicine Report ---
LUNG SCAN, VENTILATION AND PERFUSION: History: Short of breath. Technique: 5mci of Tc99m MAA was infused for the perfusion images. 15mci XE 133 gas was inhaled for the ventilatory images. Correlation is made with a chest x-ray dated 01/08/19. Findings: Inhalation of Xenon gas demonstrates a normal distribution of the activity throughout both lungs. The wash out phases show no focal retention of activity. After injection of Technetium 99m macroaggregated albumin gamma camera imaging of the lungs in multiple projections demonstrates normal pulmonary contours with a homogeneous distribution of activity. No focal areas of perfusion deficiency are identified. IMPRESSION: Low probability for pulmonary embolus.
[2019-01-09] MEDS: ULTRAM PO SCH ×2 (14:00→22:18)
[2019-01-09] MEDS ORDERED: NON-FORMULARY (Oxycodone Hcl/Acetaminophen [Percocet 10/325 Mg] 1 EACH) PO PRN (16:06)
--- NOTE | 2019-01-09 16:06 | Progress Note ---
Assessment and Plan B/L PNA, - start on zithromax and rocephin - nebs as needed Anemia, hb was ~11 about a week ago, will do anemia work up - likely from heavy period, monitor h/h IDDM type 2: SSI and restart home regimen Depression, she denies SI now CKD with possible VIVI: cont to monitor, was on HD before Morbid Obesity: family and marriage counsellor on weight reduction Chronic hypoxic respiratory failure: continue O2 supplementation Chronic pain, percocet as needed DVT prophylaxis: sq heparin Brief history: 43 YO Female with DM, HTN, Resolved ESRD not undergoing dialysis , [place], CHF, Spina bifida, Chronic back pain and opiod dependence, ANEMIA , Gastroparesis presents to ED for evaluation for chest pain over the past 3 days. CXR sugge stive for PNA, cardiology recommended medical Mx Subjective Date of service: 01/09/19 Interval history: patient seen and examined states that she is menstruating denies chest pain, breathing improved Objective - Exam Narrative Exam: General appearance: Present: mild distress, obese - EENT Eyes: Present: PERRL ENT: hearing intact, clear oral mucosa - Neck Neck: Present: supple, normal ROM - Respiratory Respiratory effort: normal Respiratory: bilateral: CTA - Cardiovascular Heart Sounds: Present: S1 & S2. Absent: rub, click - Extremities Extremities: pulses symmetrical, No edema Peripheral Pulses: within normal limits - Abdominal General gastrointestinal: Present: soft, non-tender, non-distended, normal bowel sounds Female genitourinary: Present: normal - Integumentary Integumentary: Present: clear, warm, dry - Musculoskeletal Musculoskeletal: gait normal, strength equal bilaterally - Psychiatric Psychiatric: appropriate mood/affect, intact judgment & insight - Neurologic Neurologic: CNII-XII intact, moves all extremities - Constitutional Vitals: Vital Signs - 12hr 01/09/19 01/09/19 01/09/19 04:28 07:56 08:33 Temperature 98.1 F 98.4 F Pulse Rate 92 H 90 Respiratory 20 Rate Blood Pressure 91/47 Blood Pressure [Left] O2 Sat by Pulse 100 Oximetry 01/09/19 01/09/19 01/09/19 08:34 12:56 13:29 Temperature 98.5 F Pulse Rate 88 93 H Respiratory 20 20 Rate Blood Pressure 104/51 Blood Pressure 129/67 [Left] O2 Sat by Pulse 100 99 100 Oximetry - Labs CBC & Chem 7: 01/10/19 06:35 01/10/19 06:35 Labs: Abnormal lab results 01/08/19 01/08/19 01/08/19 Range/Units 18:01 18:01 21:46 RBC (3.65-5.03) M/mm3 Hgb (10.1-14.3) gm/dl Hct (30.3-42.9) % MCV (79-97) fl RDW (13.2-15.2) % Sodium (137-145) mmol/L Carbon Dioxide (22-30) mmol/L BUN (7-17) mg/dL Creatinine (0.7-1.2) mg/dL Glucose (65-100) mg/dL POC Glucose 377 H (70-105) Hemoglobin A1c 8.6 H (4-6) % HDL Cholesterol 61 H (40-59) mg/dL 01/09/19 01/09/19 01/09/19 Range/Units 04:23 04:23 06:19 RBC 2.22 L (3.65-5.03) M/mm3 Hgb 7.0 L (10.1-14.3) gm/dl Hct 21.8 L (30.3-42.9) % MCV 98 H (79-97) fl RDW 16.5 H (13.2-15.2) % Sodium 134 L (137-145) mmol/L Carbon Dioxide 21 L (22-30) mmol/L BUN 36 H (7-17) mg/dL Creatinine 1.8 H (0.7-1.2) mg/dL Glucose 334 H (65-100) mg/dL POC Glucose 162 H (70-105) Hemoglobin A1c (4-6) % HDL Cholesterol (40-59) mg/dL 01/09/19 Range/Units 12:58 RBC (3.65-5.03) M/mm3 Hgb (10.1-14.3) gm/dl Hct (30.3-42.9) % MCV (79-97) fl RDW (13.2-15.2) % Sodium (137-145) mmol/L Carbon Dioxide (22-30) mmol/L BUN (7-17) mg/dL Creatinine (0.7-1.2) mg/dL Glucose (65-100) mg/dL POC Glucose 160 H (70-105) Hemoglobin A1c (4-6) % HDL Cholesterol (40-59) mg/dL
[2019-01-09] MEDS ORDERED: NEURONTIN PO SCH (20:00)
[2019-01-09 21:26] LABS: Iron 33 ug/dL (37-170); Total Iron Binding Capacity 194 mcg/dL (250-450)
[2019-01-09] MEDS: ZITHROMAX 500 MG in NACL 0.9% 250ML 250 ML IV SCH (21:50)
[2019-01-09] MEDS: ELAVIL PO SCH (21:50)
[2019-01-09] MEDS: ROCEPHIN/NS 1 GM/50 ML 1 GM/50 ML BAG IV SCH (23:24)
[2019-01-10] MEDS: HumaLOG SUB-Q SCH ×4 (00:19→22:40)
[2019-01-10] MEDS: MORPHINE IV PRN ×3 (06:27→19:57)
[2019-01-10] MEDS: ULTRAM PO SCH ×3 (06:28→21:34)
[2019-01-10 07:12] LABS: Basophils % (Auto) 0.3 % (0.0-1.8); Eosinophils # (Auto) 0.1 K/mm3 (0.0-0.4); Eosinophils % (Auto) 2.1 % (0.0-4.3); Hematocrit 20.1 % (30.3-42.9); Hemoglobin 6.6 gm/dl (10.1-14.3); Lymphocytes # (Auto) 1.5 K/mm3 (1.2-5.4); Lymphocytes % (Auto) 28.6 % (13.4-35.0); Mean Corpuscular HGB Conc 33 % (30-34); Mean Corpuscular Volume 98 fl (79-97); Monocytes # (Auto) 0.3 K/mm3 (0.0-0.8); Monocytes % (Auto) 6.7 % (0.0-7.3); Platelet Count 232 K/mm3 (140-440); Red Blood Count 2.05 M/mm3 (3.65-5.03)
[2019-01-10] MEDS ORDERED: NACL 0.9% 500 ML 500 ML IV ONE (07:37)
[2019-01-10 07:40] LABS: Calcium 8.4 mg/dL (8.4-10.2)
[2019-01-10] MEDS: PEPCID PO SCH ×2 (09:49→21:34)
[2019-01-10] MEDS: NORVASC PO SCH (09:49)
[2019-01-10] MEDS: PERCOCET 5/325 PO PRN ×2 (09:50→22:39)
[2019-01-10] MEDS: SODIUM CHLORIDE FLUSH SYRINGE 10 ML IV SCH ×2 (09:51→21:36)
[2019-01-10] MEDS: ROCEPHIN/NS 1 GM/50 ML 1 GM/50 ML BAG IV SCH ×2 (10:04→21:35)
--- NOTE | 2019-01-10 12:31 | Progress Note ---
Assessment and Plan Pneumonia Diabetes -uncontrolled Pleuritic chest pain Hypertension Severe Anemia Hx of Gastroparesis Acute on chronic renal failure previously temporarily on dialysis which was discontinued after renal function improved Morbid obesity Echocardiogram done today shows well-preserved left ventricular systolic function, ejection fraction 50-55%. Conservative cardiac management. Subjective Date of service: 01/10/19 Interval history: Patient is resting in bed comfortably. She has no complaints. Severe anemia on morning labs; Hgb 6.6. Patient reports she is menstruating. Objective Vital Signs Temp Pulse Resp Resp BP BP Pulse Ox 01/10/19 11:28 98.0 F 84 20 101/50 99 01/10/19 08:44 98.2 F 90 20 130/67 98 01/10/19 06:27 20 01/10/19 04:22 98.0 F 88 20 128/87 87 01/10/19 00:05 98.0 F 96 H 18 104/61 98 01/09/19 22:04 20 01/09/19 22:00 20 01/09/19 21:59 96 01/09/19 19:56 94 H 01/09/19 19:31 98.0 F 98 H 18 109/59 99 01/09/19 17:33 98.9 F 92 H 109/52 01/09/19 17:32 98.9 F 95 H 20 93/52 99 01/09/19 13:29 98.5 F 93 H 20 129/67 100 01/09/19 12:56 99 - Physical Examination General: No Apparent Distress HEENT: Positive: PERRL Neck: Positive: trachea midline Cardiac: Positive: Reg Rate and Rhythm Lungs: Positive: Decreased Breath Sounds Neuro: Positive: Grossly Intact - Labs and Meds CBC 01/10/19 Range/Units 06:35 WBC 5.1 (4.5-11.0) K/mm3 RBC 2.05 L (3.65-5.03) M/mm3 Hgb 6.6 L (10.1-14.3) gm/dl Hct 20.1 L (30.3-42.9) % Plt Count 232 (140-440) K/mm3 Lymph # 1.5 (1.2-5.4) K/mm3 [place] # 0.3 (0.0-0.8) K/mm3 Eos # 0.1 (0.0-0.4) K/mm3 Baso # 0.0 (0.0-0.1) K/mm3 Comprehensive Metabolic Panel 01/10/19 Range/Units 06:35 Sodium 139 (137-145) mmol/L Potassium 4.5 (3.6-5.0) mmol/L Chloride 104.7 (98-107) mmol/L Carbon Dioxide 21 L (22-30) mmol/L BUN 22 H (7-17) mg/dL Creatinine 1.7 H (0.7-1.2) mg/dL Glucose 192 H (65-100) mg/dL Calcium 8.4 (8.4-10.2) mg/dL
[2019-01-10] MEDS: NEURONTIN PO SCH ×3 (12:55→21:34)
[2019-01-10] MEDS ORDERED: BENADRYL PO PRN (15:30)
--- NOTE | 2019-01-10 17:45 | Progress Note ---
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 CXR suggestive for PNA, cardiology recommended medical Mx Subjective Date of service: 01/10/19 Interval history: patient seen and examined states that she is menstruating with heavy bleeding denies chest pain, breathing improved Objective - Exam Narrative Exam: General appearance: Present: mild distress, obese - EENT Eyes: Present: PERRL ENT: hearing intact, clear oral mucosa - Neck Neck: Present: supple, normal ROM - Respiratory Respiratory effort: normal Respiratory: bilateral: CTA - Cardiovascular Heart Sounds: Present: S1 & S2. Absent: rub, click - Extremities Extremities: pulses symmetrical, No edema Peripheral Pulses: within normal limits - Abdominal General gastrointestinal: Present: soft, non-tender, non-distended, normal bowel sounds Female genitourinary: Present: normal - Integumentary Integumentary: Present: clear, warm, dry - Musculoskeletal Musculoskeletal: gait normal, strength equal bilaterally - Psychiatric Psychiatric: appropriate mood/affect, intact judgment & insight - Neurologic Neurologic: CNII-XII intact, moves all extremities - Constitutional Vitals: Vital Signs - 12hr 01/10/19 01/10/19 01/10/19 06:27 07:00 08:44 Temperature 98.2 F Pulse Rate 89 90 Respiratory 20 20 Rate Respiratory Rate [Back] Blood Pressure 130/67 O2 Sat by Pulse 98 Oximetry 01/10/19 01/10/19 01/10/19 10:00 11:28 12:33 Temperature 98.0 F 98.5 F Pulse Rate 84 89 Respiratory 20 18 Rate Respiratory 18 Rate [Back] Blood Pressure 101/50 117/57 O2 Sat by Pulse 99 100 Oximetry 01/10/19 01/10/19 01/10/19 12:48 15:39 15:57 Temperature 98.5 F 98.4 F 98.0 F Pulse Rate 94 H 91 H 86 Respiratory 18 19 20 Rate Respiratory Rate [Back] Blood Pressure 121/63 121/66 103/49 O2 Sat by Pulse 100 100 99 Oximetry 01/10/19 15:58 Temperature 98.2 F Pulse Rate 86 Respiratory 20 Rate Respiratory Rate [Back] Blood Pressure O2 Sat by Pulse 99 Oximetry - Labs CBC & Chem 7: 01/11/19 07:37 01/10/19 06:35 Labs: Abnormal lab results 01/09/19 01/09/19 01/10/19 Range/Units 17:17 17:18 00:14 RBC (3.65-5.03) M/mm3 Hgb (10.1-14.3) gm/dl Hct (30.3-42.9) % MCV (79-97) fl RDW (13.2-15.2) % Carbon Dioxide (22-30) mmol/L BUN (7-17) mg/dL Creatinine (0.7-1.2) mg/dL Glucose (65-100) mg/dL POC Glucose 233 H (70-105) Iron 33 L (37-170) ug/dL TIBC 194 L (250-450) mcg/dL Folate 6.47 L (7.3-26.0) ng/mL Crossmatch 01/10/19 01/10/19 01/10/19 Range/Units 05:31 06:35 06:35 RBC 2.05 L (3.65-5.03) M/mm3 Hgb 6.6 L (10.1-14.3) gm/dl Hct 20.1 L (30.3-42.9) % MCV 98 H (79-97) fl RDW 16.0 H (13.2-15.2) % Carbon Dioxide 21 L (22-30) mmol/L BUN 22 H (7-17) mg/dL Creatinine 1.7 H (0.7-1.2) mg/dL Glucose 192 H (65-100) mg/dL POC Glucose 215 H (70-105) Iron (37-170) ug/dL TIBC (250-450) mcg/dL Folate (7.3-26.0) ng/mL Crossmatch 01/10/19 01/10/19 01/10/19 Range/Units 08:47 11:29 15:58 RBC (3.65-5.03) M/mm3 Hgb (10.1-14.3) gm/dl Hct (30.3-42.9) % MCV (79-97) fl RDW (13.2-15.2) % Carbon Dioxide (22-30) mmol/L BUN (7-17) mg/dL Creatinine (0.7-1.2) mg/dL Glucose (65-100) mg/dL POC Glucose 310 H 181 H (70-105) Iron (37-170) ug/dL TIBC (250-450) mcg/dL Folate (7.3-26.0) ng/mL Crossmatch See Detail
[2019-01-10] MEDS: FOLVITE PO SCH (21:34)
[2019-01-10] MEDS: ELAVIL PO SCH (21:34)
[2019-01-10] MEDS: ZITHROMAX 500 MG in NACL 0.9% 250ML 250 ML IV SCH (22:39)
[2019-01-11] MEDS: ULTRAM PO SCH (05:50)
[2019-01-11] MEDS: MORPHINE IV PRN (05:52)
[2019-01-11] MEDS: HumaLOG SUB-Q SCH ×2 (08:00→12:00)
[2019-01-11 08:08] LABS: Basophils % (Auto) 0.3 % (0.0-1.8); Eosinophils # (Auto) 0.1 K/mm3 (0.0-0.4); Eosinophils % (Auto) 2.5 % (0.0-4.3); Hematocrit 24.4 % (30.3-42.9); Lymphocytes # (Auto) 1.4 K/mm3 (1.2-5.4); Lymphocytes % (Auto) 27.9 % (13.4-35.0); Mean Corpuscular HGB Conc 33 % (30-34); Mean Corpuscular Volume 94 fl (79-97); Monocytes # (Auto) 0.3 K/mm3 (0.0-0.8); Monocytes % (Auto) 5.6 % (0.0-7.3); Platelet Count 273 K/mm3 (140-440); Red Blood Count 2.61 M/mm3 (3.65-5.03)
[2019-01-11] MEDS: NEURONTIN PO SCH ×2 (09:00→14:59)
[2019-01-11] MEDS: FOLVITE PO SCH (09:02)
[2019-01-11] MEDS: PEPCID PO SCH (09:02)
[2019-01-11] MEDS: NORVASC PO SCH (09:03)
[2019-01-11] MEDS: SODIUM CHLORIDE FLUSH SYRINGE 10 ML IV SCH (09:04)
[2019-01-11] MEDS ORDERED: ROCEPHIN/NS 2 GM/100 ML 2 GM/100 ML BAG IV SCH (10:00)
--- NOTE | 2019-01-11 11:17 | Progress Note ---
Assessment and Plan 1. Atypical chest pain resolved 2. Essential hypertension 3. Type 2 diabetes mellitus 4. Chronic kidney disease 5. Severe obesity Plan. Cardiac-zuniga stable left ventricular ejection fraction normal. Conservative management. Subjective Date of service: 01/11/19 Interval history: No cardiac symptoms. Objective Vital Signs Temp Pulse Resp BP Pulse Ox 01/11/19 10:00 16 96 01/11/19 07:54 97.9 F 88 20 118/68 96 01/11/19 06:23 97.4 F L 87 20 114/63 100 01/11/19 00:35 98.0 F 91 H 20 101/47 98 01/10/19 23:25 94 H 01/10/19 20:30 98.0 F 92 H 20 106/61 97 01/10/19 15:58 98.2 F 86 20 99 01/10/19 15:57 98.0 F 86 20 103/49 99 01/10/19 15:39 98.4 F 91 H 19 121/66 100 01/10/19 12:48 98.5 F 94 H 18 121/63 100 01/10/19 12:33 98.5 F 89 18 117/57 100 01/10/19 11:28 98.0 F 84 20 101/50 99 - Physical Examination General: No Apparent Distress, Other (Obese) HEENT: Positive: PERRL Neck: Positive: trachea midline Cardiac: Positive: Regular Rate, S1/S2. Negative: S3, S4 Lungs: Positive: clear to auscultation, No Wheeze, Rales, Rhonchi Neuro: Positive: Grossly Intact Abdomen: Positive: Unremarkable, Soft, Active Bowel Sounds Extremities: Absent: edema - Labs and Meds CBC 01/11/19 Range/Units 07:37 WBC 4.8 (4.5-11.0) K/mm3 RBC 2.61 L (3.65-5.03) M/mm3 Hgb 8.0 L (10.1-14.3) gm/dl Hct 24.4 L (30.3-42.9) % Plt Count 273 (140-440) K/mm3 Lymph # 1.4 (1.2-5.4) K/mm3 [place] # 0.3 (0.0-0.8) K/mm3 Eos # 0.1 (0.0-0.4) K/mm3 Baso # 0.0 (0.0-0.1) K/mm3
[2019-01-11 11:20] VITALS: BP 131/109
--- NOTE | 2019-01-11 14:07 | Discharge Summary ---
Providers - Providers Date of Admission: 01/08/19 17:48 Date of discharge: 01/11/19 Attending physician: TAD KRAFT 01/08/19 Consult to Cardiac Rehabilitation [CONS] Routine Reason For Exam: Phase I 01/08/19 17:48 Consult to Cardiology [CONS] Routine Consulting Provider: MJ ADAMS Reason For Exam: chest pain Primary care physician: CARLOS BARBA Hospitalization Reason for admission: SOB Condition: Stable Pertinent studies: CXR VQ scan Pelvic US Hospital course: Brief history: 43 YO Female with DM, HTN, Resolved ESRD not undergoing dialysis, Chronic back pain and opiod dependence, ANEMIA, presents to ED for evaluation for chest pain over the past 3 days. CXR suggestive for PNA, cardiology recommended medical Mx. She was admitted for further mx of PNA and anemia. Discharge Discharge and Management: Chest pain, due to b/L PNA, medical Mx per cardiology B/L PNA, - started on zithromax and rocephin, nebs as needed - will complete Tx as outpt Anemia, hb was ~11 about a week ago, - likely from heavy period, monitored h/h - Hb dropped to 6.6, transfused one unit - ordered pelvic US, likely fibroid, will do further outpt followup Folic acid deficiency, started replacement IDDM type 2: Placed on SSI and restarted home regimen Depression, she denies SI now CKD with possible VIVI: renal function monitored, was on HD before Morbid Obesity: counseled on weight reduction Chronic hypoxic respiratory failure: continued O2 supplementation Chronic pain, percocet as needed DVT prophylaxis: SCD Disposition: - TO HOME OR SELFCARE Time spent for discharge: 34 minutes Core Measure Documentation - Palliative Care Palliative Care/ Comfort Measures: Not Applicable - Core Measures Any of the following diagnoses?: none Exam - Physical Exam Narrative exam: General appearance: Present: mild distress, obese - EENT Eyes: Present: PERRL ENT: hearing intact, clear oral mucosa - Neck Neck: Present: supple, normal ROM - Respiratory Respiratory effort: normal Respiratory: bilateral: CTA - Cardiovascular Heart Sounds: Present: S1 & S2. Absent: rub, click - Extremities Extremities: pulses symmetrical, No edema Peripheral Pulses: within normal limits - Abdominal General gastrointestinal: Present: soft, non-tender, non-distended, normal bowel sounds Female genitourinary: Present: normal - Integumentary Integumentary: Present: clear, warm, dry - Musculoskeletal Musculoskeletal: gait normal, strength equal bilaterally - Psychiatric Psychiatric: appropriate mood/affect, intact judgment & insight - Neurologic Neurologic: CNII-XII intact, moves all extremities - Constitutional Vitals: Temp Pulse Resp BP Pulse Ox 98.6 F 101 H 20 131/109 98 01/11/19 11:17 01/11/19 11:17 01/11/19 11:17 01/11/19 11:17 01/11/19 11:17 Plan Activity: advance as tolerated Weight Bearing Status: Weight Bear as Tolerated Diet: renal Additional Instructions: f/u with obg/obstetrics gynecology physician outpt Follow up with: CARLOS BARBA MD [Primary Care Provider] - 7 Days Prescriptions: Ferrous Gluconate [Fergon 325 MG tab] 325 mg PO QDAY #30 tablet Folic Acid [Folvite] 1 mg PO QDAY #30 tablet Azithromycin [Zithromax TAB] 500 mg PO QDAY #3 tablet
--- NOTE | 2019-01-12 02:18 | Ultrasound Report ---
PROCEDURE: US PELVIC COMPLETE TECHNIQUE: Real-time transabdominal sonography in multiple planes of pelvis was performed with image documentation. HISTORY: possible fibroid COMPARISONS: None . FINDINGS: UTERUS Size: 10.1 x 4.7 x 6.3 cm. Endometrial thickness: 5 mm. Orientation: anteverted. Cervix: Normal. Fibroids/masses: The uterus is not well visualized on this study. Evaluation for fibroid formation is not complete on this study. RIGHT Ovary: Not visualized LEFT Ovary: Not visualized Pelvic fluid: None. Other: None. IMPRESSION: The uterus size is normal. The uterine myometrium is not well-visualized on this study. Evaluation fibroid formation is slight with this examination. The ovaries are not visualized. This document is electronically signed by Lizzy Hammonds DO., January 12 2019 02:16:38 AM ET
[2019-01-12] MEDS ORDERED: ZITHROMAX PO SCH (22:00)
== END 2019-01-11 17:00 | disposition home or self-care (01) | DRG 682 ==
LOC: ED 12:57 → 4A 17:48
PROVIDERS: ADMIT Internal Medicine; ATTEND Internal Medicine
PROC: 30233N1 Transfusion of Nonautologous Red Blood Cells into Peripheral Vein, Percutaneous Approach (ICD-10-PCS; principal; 2019-01-10)
DX: N17.9 Acute kidney failure, unspecified (principal); J18.9 Pneumonia, unspecified organism; E87.2 Acidosis; E66.2 Morbid (severe) obesity with alveolar hypoventilation; Z68.44 Body mass index [BMI] 60.0-69.9, adult; G89.29 Other chronic pain; F11.20 Opioid dependence, uncomplicated; N18.9 Chronic kidney disease, unspecified; D64.9 Anemia, unspecified; F32.9 Major depressive disorder, single episode, unspecified; Z71.3 Dietary counseling and surveillance; J96.11 Chronic respiratory failure with hypoxia; I13.0 Hypertensive heart and chronic kidney disease with heart failure and stage 1 through stage 4 chronic kidney disease, or unspecified chronic kidney disease; K21.9 Gastro-esophageal reflux disease without esophagitis; M54.9 Dorsalgia, unspecified; G43.909 Migraine, unspecified, not intractable, without status migrainosus; I50.9 Heart failure, unspecified; E11.43 Type 2 diabetes mellitus with diabetic autonomic (poly)neuropathy; K31.84 Gastroparesis; Z82.49 Family history of ischemic heart disease and other diseases of the circulatory system; Z83.3 Family history of diabetes mellitus; Z90.49 Acquired absence of other specified parts of digestive tract; Z88.8 Allergy status to other drugs, medicaments and biological substances; Z88.6 Allergy status to analgesic agent; Z79.899 Other long term (current) drug therapy; Z79.4 Long term (current) use of insulin; Z99.81 Dependence on supplemental oxygen; R07.89 Other chest pain
CPT/HCPCS: 36415; 71046; 76856; 78582; 80048; 80061; 82607; 82747; 82962; 83036; 83550; 83880; 84484; 85025; 86850; 86900; 86901; 86920; 87040; 87086; 93005; 93010; 93306; 96365; 96375; G0378; A9540; A9558; J0456; J0696; J1200; J1815; J1956; J2270; J7040; J7050; P9016

== ENCOUNTER 2019-02-27 08:07 | Emergency (ER) | payer MEDICAID ==
[2019-02-27] MEDS ORDERED: PEPCID IV ONE (08:39)
[2019-02-27] MEDS ORDERED: NACL 0.9% 1000 ML 1,000 ML IV ONE (08:39)
[2019-02-27] MEDS ORDERED: ZOFRAN IV ONE (08:39)
[2019-02-27] MEDS ORDERED: BENTYL IM ONE (08:39)
--- NOTE | 2019-02-27 08:44 | Emergency Department Report ---
ED Abdominal Pain HPI - General Chief Complaint: Abdominal Pain Stated Complaint: VOMITING/ABD PAIN/BACK PAIN Time Seen by Provider: 02/27/19 08:32 Source: patient Mode of arrival: Ambulatory Limitations: No Limitations - History of Present Illness Initial Comments: Patient is a 43-year-old female with a past medical history of diabetes, hepatitis hypertension, resolved and stayed renal disease no longer on dialysis, and chronic back pain who was recently discharged from the hospital on 01/11/2019 secondary to pneumonia who is presenting with abdominal pain. Patient states abdomen is been hurting for the last 2 days. Patient states pain is in the epigastrium and associated with nausea and vomiting. Patient cannot quantify hypertension vomited. Patient denies diarrhea fever chills cough cold congestion at this time. Patient states she has taken all the antibiotics that she was prescribed on her previous visit. The abdominal pain as a 5 out of 10 in severity as crampy in nature. Severity scale (0 -10): 5 - Related Data Home Medications Medication Instructions Recorded Confirmed Last Taken Insulin NPH Hum/Reg Insulin Hm 30 - 40 unit SQ QAMDIAB 10/05/15 01/08/19 10/09/18 20:00 [HumuLIN 70-30 Vial] Amitriptyline [Elavil] 50 mg PO QHS 01/08/19 01/08/19 Unknown Famotidine [Pepcid] 20 mg PO BID 01/08/19 01/08/19 Unknown Oxycodone HCl/Acetaminophen 1 each PO Q4H PRN 01/08/19 01/08/19 Unknown [Percocet 10/325 mg] Promethazine [Phenergan] 25 mg PO Q8HR PRN 01/08/19 01/08/19 Unknown amLODIPine [Norvasc] 10 mg PO DAILY 01/08/19 01/08/19 Unknown Previous Rx's Medication Instructions Recorded Last Taken Type Azithromycin [Zithromax TAB] 500 mg PO QDAY #3 tablet 01/11/19 Unknown Rx Ferrous Gluconate [Fergon 325 MG 325 mg PO QDAY #30 tablet 01/11/19 Unknown Rx tab] Folic Acid [Folvite] 1 mg PO QDAY #30 tablet 01/11/19 Unknown Rx Gabapentin [Neurontin] 300 mg PO DAILY #30 01/11/19 Unknown Rx Famotidine [Pepcid] 40 mg PO QHS #10 tablet 02/27/19 Unknown Rx Ondansetron [Zofran Odt] 4 mg PO Q8HR #10 tab.rapdis 02/27/19 Unknown Rx Pantoprazole [Protonix] 40 mg PO QDAY #30 tablet 02/27/19 Unknown Rx Allergies Allergy/AdvReac Type Severity Reaction Status Date / Time ketorolac tromethamine Allergy Unknown Verified 10/08/18 18:00 [From Toradol] meperidine HCl [From Demerol] Allergy Shortness Verified 10/08/18 18:00 of Breath ED Review of Systems ROS: Stated complaint: VOMITING/ABD PAIN/BACK PAIN Other details as noted in HPI Comment: All other systems reviewed and negative ED Past Medical Hx - Past Medical History Hx Hypertension: Yes (Hospitalized in hypertensive crisis 08/28/18) Hx CVA: No Hx Congestive Heart Failure: No Hx Diabetes: Yes Hx GERD: Yes Hx Renal Disease: Yes Hx Arthritis: Yes (All joints) Hx Headaches / Migraines: Yes (Migraines) Hx Psychiatric Treatment: No Hx Asthma: Yes (no recent albuterol use) Hx COPD: No Hx HIV: No Additional medical history: spina bifida, Gastroparesis. morbid obesity, home oxygen @ 3LPM nasal cannula - Surgical History Hx Cholecystectomy: Yes Hx Appendectomy: Yes Hx Breast Surgery: Yes (breast reduction) Additional Surgical History: Right chest port-discontinued - Social History Smoking Status: Never Smoker Substance Use Type: None - Medications Home Medications: Home Medications Medication Instructions Recorded Confirmed Last Taken Type Insulin NPH Hum/Reg Insulin Hm 30 - 40 unit SQ QAMDIAB 10/05/15 01/08/19 10/09/18 20:00 History [HumuLIN 70-30 Vial] Amitriptyline [Elavil] 50 mg PO QHS 01/08/19 01/08/19 Unknown History Famotidine [Pepcid] 20 mg PO BID 01/08/19 01/08/19 Unknown History Oxycodone HCl/Acetaminophen 1 each PO Q4H PRN 01/08/19 01/08/19 Unknown History [Percocet 10/325 mg] Promethazine [Phenergan] 25 mg PO Q8HR PRN 01/08/19 01/08/19 Unknown History amLODIPine [Norvasc] 10 mg PO DAILY 01/08/19 01/08/19 Unknown History Azithromycin [Zithromax TAB] 500 mg PO QDAY #3 tablet 01/11/19 Unknown Rx Ferrous Gluconate [Fergon 325 MG 325 mg PO QDAY #30 tablet 01/11/19 Unknown Rx tab] Folic Acid [Folvite] 1 mg PO QDAY #30 tablet 01/11/19 Unknown Rx Gabapentin [Neurontin] 300 mg PO DAILY #30 01/11/19 01/08/19 Unknown Rx Famotidine [Pepcid] 40 mg PO QHS #10 tablet 02/27/19 Unknown Rx Ondansetron [Zofran Odt] 4 mg PO Q8HR #10 tab.rapdis 02/27/19 Unknown Rx Pantoprazole [Protonix] 40 mg PO QDAY #30 tablet 02/27/19 Unknown Rx ED Physical Exam - General Limitations: No Limitations General appearance: alert, in no apparent distress - Head Head exam: Present: atraumatic, normocephalic - Eye Eye exam: Present: normal appearance, PERRL, EOMI - ENT ENT exam: Present: mucous membranes moist - Neck Neck exam: Present: normal inspection - Respiratory Respiratory exam: Present: normal lung sounds bilaterally. Absent: respiratory distress, wheezes, rales, rhonchi, stridor - Cardiovascular Cardiovascular Exam: Present: regular rate, normal rhythm. Absent: systolic murmur, diastolic murmur, rubs, gallop - GI/Abdominal GI/Abdominal exam: Present: soft, tenderness, normal bowel sounds. Absent: distended, guarding, rebound, rigid - Extremities Exam Extremities exam: Present: normal inspection - Back Exam Back exam: Present: normal inspection - Neurological Exam Neurological exam: Present: alert, oriented X3 - Psychiatric Psychiatric exam: Present: normal affect, normal mood - Skin Skin exam: Present: warm, dry, intact, normal color. Absent: rash ED Course Vital Signs 02/27/19 02/27/19 02/27/19 08:14 09:32 10:02 Temperature 98.3 F Pulse Rate 107 H Respiratory 16 18 18 Rate Blood Pressure 157/107 [Left] O2 Sat by Pulse 96 Oximetry 02/27/19 13:38 Temperature 98.3 F Pulse Rate 104 H Respiratory 20 Rate Blood Pressure 122/95 [Left] O2 Sat by Pulse Oximetry ED Medical Decision Making - Lab Data Result diagrams: 02/27/19 Unknown 02/27/19 Unknown Labs 02/27/19 02/27/19 02/27/19 13:14 Unknown Unknown RBC 3.26 L Hgb 9.8 L Hct 30.7 MCV 94 MCH 30 MCHC 32 RDW 18.4 H Sodium 135 L TNR Potassium 5.5 H TNR Chloride 100.6 TNR Carbon Dioxide 19 L TNR Anion Gap 21 TNR BUN 17 TNR Creatinine 1.3 H TNR Estimated GFR 55 TNR BUN/Creatinine Ratio 13 TNR Glucose 289 H TNR Calcium 9.3 TNR Total Bilirubin 0.40 TNR AST 11 TNR ALT 7 TNR Alkaline Phosphatase 195 H TNR Total Protein 7.6 TNR Albumin 4.1 TNR Albumin/Globulin Ratio 1.2 TNR Lipase 15 TNR HCG, Qual 02/27/19 Unknown RBC Hgb Hct MCV MCH MCHC RDW Sodium Potassium Chloride Carbon Dioxide Anion Gap BUN Creatinine Estimated GFR BUN/Creatinine Ratio Glucose Calcium Total Bilirubin AST ALT Alkaline Phosphatase Total Protein Albumin Albumin/Globulin Ratio Lipase HCG, Qual Negative - [place] [address] Cat Scan Report Signed Patient: YULIA WISE MR#: [id number] : 1975 Acct:[id number] Age/Sex: 43 / F ADM Date: 02/27/19 Loc: ED Attending Dr: Ordering Physician: TRAN DE LA CRUZ MD Date of Service: 02/27/19 Procedure(s): CT abdomen pelvis wo con Accession Number(s): [id number] cc: TRAN DE LA CRUZ MD CT ABDOMEN AND PELVIS WITHOUT CONTRAST INDICATION: Epigastric pain, nausea, vomiting. COMPARISON: 10/22/2018 CT. FINDINGS: Noncontrast abdomen and pelvis CT performed. LUNG BASES: Nonspecific distal esophageal wall prominence/thickening, not excluded for gastroesophageal reflux and/or hiatal hernia, amongst others. ABDOMEN: Please note that sensitivity to detect small visceral lesions is limited due to the absence of intravenous or oral contrast. Stable cholecystectomy clips. Right hepatic lobe again 19.2 cm in midclavicular length. Left hepatic lobe tip also extends into the left upper quadrant. Otherwise grossly unremarkable unenhanced liver, spleen, pancreas, left adrenal, aorta, IVC and the right kidney. Approximately 5 mm left upper renal pole calcification again seen as on axial image 63, series 2. Subtle left lower renal pole calcification now not reliably seen, possibly passed in the interval. No left hydroureteronephrosis at this time. Approximately 1.3 cm stable nodule along medial limb of the right adrenal, axial image 61, statistically an adenoma. No definite ascites or new significant adenopathy with few small, predominantly subcentimeter mesenteric and retroperitoneal lymph nodes again seen, the largest approximately 1 cm left para-aortic on axial image 88, series 2.. Nonopacified GI tract evaluation limited, though grossly nonobstructive. Post appendectomy changes noted. Mild stool throughout the colon. Stable fat containing umbilical hernia measuring approximately 4.4 cm subcutaneous as on axial image 126 with a transverse neck of 1.5 cm. PELVIS: A previous tiny 2 mm left distal ureteral calculus no longer reliably identified and may have passed in the interval. Numerous stable tiny phleboliths. Grossly unremarkable uterus, adnexa, nonopacified urinary bladder and the rectosigmoid. No free fluid or significant adenopathy. Mild bilateral SI joint degenerative changes/mild sclerosis. Slight bilateral hip degenerative changes as well. CONCLUSION: No acute CT abnormality on this unenhanced exam with various findings as distal esophageal thickening, cholecystectomy, slightly prominent liver, left upper renal pole calculus, post appendectomy changes and a fat containing umbilical hernia again noted, amongst others, with possible interval passage of tiny left calculi and resolution of mild left hydroureteronephrosis since the prior exam, as detailed above. Please correlate. Thank you for the opportunity to participate in this patient's care. Transcribed By: RS Dictated By: PEDRO LUIS HARRELL MD Electronically Authenticated By: PERDO LUIS HARRELL MD Signed Date/Time: 02/27/19 1346 DD/ 1331 TD/TT: 02/27/19 1346 - Medical Decision Making She was given meds for symptomatic relief her nausea vomiting has improved. Patient to be discharged home with meds for GERD. Critical care attestation.: If time is entered above; I have spent that time in minutes in the direct care of this critically ill patient, excluding procedure time. ED Disposition Clinical Impression: GERD with esophagitis Disposition: - TO HOME OR SELFCARE Is pt being admited?: No Does the pt Need Aspirin: No Condition: Stable Instructions: Diet for Ulcers and Gastritis (ED), Gastroesophageal Reflux Disease (ED) Prescriptions: Famotidine [Pepcid] 40 mg PO QHS #10 tablet Pantoprazole [Protonix] 40 mg PO QDAY #30 tablet Ondansetron [Zofran Odt] 4 mg PO Q8HR #10 tab.rapdis Referrals: CARLOS BARBA MD [Primary Care Provider] - 3-5 Days Time of Disposition: 14:15
[2019-02-27] MEDS ORDERED: MORPHINE ONE (10:01)
[2019-02-27] MEDS ORDERED: MORPHINE IV ONE ×2 (10:01→14:18)
[2019-02-27] MEDS ORDERED: BENADRYL IV ONE (10:03)
[2019-02-27 11:38] LABS: Hematocrit 30.7 % (30.3-42.9); Hemoglobin 9.8 gm/dl (10.1-14.3); Mean Corpuscular HGB Conc 32 % (30-34); Mean Corpuscular Volume 94 fl (79-97); Red Blood Count 3.26 M/mm3 (3.65-5.03); Red Cell Distribution Width 18.4 % (13.2-15.2)
[2019-02-27 12:08] LABS: BUN/Creatinine Ratio TNR; Blood Urea Nitrogen TNR mg/dL (7-17); Calcium TNR mg/dL (8.4-10.2)
[2019-02-27 12:09] LABS: Alanine Aminotransferase TNR units/L (7-56); Albumin TNR g/dL (3.9-5)
[2019-02-27 12:10] LABS: Hemolysis Index TNR
[2019-02-27 13:28] LABS: Albumin 4.1 g/dL (3.9-5); Calcium 9.3 mg/dL (8.4-10.2)
[2019-02-27 13:40] VITALS: BP 122/95
--- NOTE | 2019-02-27 13:47 | Cat Scan Report ---
CT ABDOMEN AND PELVIS WITHOUT CONTRAST INDICATION: Epigastric pain, nausea, vomiting. COMPARISON: 10/22/2018 CT. FINDINGS: Noncontrast abdomen and pelvis CT performed. LUNG BASES: Nonspecific distal esophageal wall prominence/thickening, not excluded for gastroesophageal reflux and/or hiatal hernia, amongst others. ABDOMEN: Please note that sensitivity to detect small visceral lesions is limited due to the absence of intravenous or oral contrast. Stable cholecystectomy clips. Right hepatic lobe again 19.2 cm in midclavicular length. Left hepatic lobe tip also extends into the left upper quadrant. Otherwise grossly unremarkable unenhanced liver, spleen, pancreas, left adrenal, aorta, IVC and the right kidney. Approximately 5 mm left upper renal pole calcification again seen as on axial image 63, series 2. Subtle left lower renal pole calcification now not reliably seen, possibly passed in the interval. No left hydroureteronephrosis at this time. Approximately 1.3 cm stable nodule along medial limb of the right adrenal, axial image 61, statistically an adenoma. No definite ascites or new significant adenopathy with few small, predominantly subcentimeter mesenteric and retroperitoneal lymph nodes again seen, the largest approximately 1 cm left para-aortic on axial image 88, series 2.. Nonopacified GI tract evaluation limited, though grossly nonobstructive. Post appendectomy changes noted. Mild stool throughout the colon. Stable fat containing umbilical hernia measuring approximately 4.4 cm subcutaneous as on axial image 126 with a transverse neck of 1.5 cm. PELVIS: A previous tiny 2 mm left distal ureteral calculus no longer reliably identified and may have passed in the interval. Numerous stable tiny phleboliths. Grossly unremarkable uterus, adnexa, nonopacified urinary bladder and the rectosigmoid. No free fluid or significant adenopathy. Mild bilateral SI joint degenerative changes/mild sclerosis. Slight bilateral hip degenerative changes as well. CONCLUSION: No acute CT abnormality on this unenhanced exam with various findings as distal esophageal thickening, cholecystectomy, slightly prominent liver, left upper renal pole calculus, post appendectomy changes and a fat containing umbilical hernia again noted, amongst others, with possible interval passage of tiny left calculi and resolution of mild left hydroureteronephrosis since the prior exam, as detailed above. Please correlate. Thank you for the opportunity to participate in this patient's care.
[2019-02-27 14:34] LABS: Anisocytosis 1+; Macrocytosis Few; Platelet Estimate Consistent w Auto; Total Cells Counted 100
[2019-02-27 14:51] LABS: Platelet Count 444 K/mm3 (140-440)
== END 2019-02-27 14:37 | disposition home or self-care (01) ==
LOC: ED 08:07
DX: K21.0 Gastro-esophageal reflux disease with esophagitis (principal); I10 Essential (primary) hypertension; M19.90 Unspecified osteoarthritis, unspecified site; G43.909 Migraine, unspecified, not intractable, without status migrainosus; J45.909 Unspecified asthma, uncomplicated; E11.43 Type 2 diabetes mellitus with diabetic autonomic (poly)neuropathy; K31.84 Gastroparesis; Z79.4 Long term (current) use of insulin; E66.01 Morbid (severe) obesity due to excess calories; Z68.43 Body mass index [BMI] 50.0-59.9, adult; Z90.49 Acquired absence of other specified parts of digestive tract; Z79.899 Other long term (current) drug therapy; Z88.6 Allergy status to analgesic agent; Z88.1 Allergy status to other antibiotic agents
CPT/HCPCS: 36415; 74176; 80053; 83690; 84703; 85007; 85025; 96361; 96372; 96374; 96375; 96376; 99284; J0500; J1200; J2270; J2405; J7030

== ENCOUNTER 2019-04-23 11:07 | Emergency (ER) | payer MEDICAID ==
[2019-04-23 11:21] VITALS: BP 154/92
--- NOTE | 2019-04-23 11:21 | Event Note ---
ED Screening Note Date of service: 04/23/19 Time: 11:19 ED Screening Note: 43 y/o female comes in for N/V and sore in her head. Has not taken her medications in three days. . This initial assessment/diagnostic orders/clinical plan/treatment(s) is/are subject to change based on patients health status, clinical progression and re- assessment by fellow clinical providers in the ED. Further treatment and workup at subsequent clinical providers discretion. Patient/guardian urged not to elope from the ED as their condition may be serious if not clinically assessed and managed. Initial orders include:
[2019-04-23] MEDS ORDERED: MORPHINE IM ONE (12:21)
[2019-04-23] MEDS ORDERED: ZOFRAN IM ONE (12:21)
[2019-04-23] MEDS ORDERED: MORPHINE ONE (12:53)
--- NOTE | 2019-04-23 13:14 | Emergency Department Report ---
ED General Adult HPI - General Chief complaint: Skin/Abscess/Foreign Body Stated complaint: HEAD/BACK PAIN Time Seen by Provider: 04/23/19 12:17 Source: patient Mode of arrival: Ambulatory Limitations: No Limitations - History of Present Illness Initial comments: Patient is a 43-year-old Female well known to our department with chronic pain who states that while she's having pain in her lower back. Patient states she's been lying on the floor in pain in her home for the last several days and in the process of being on the floor she's rubbed her back of her head on the carpet back and forth over and over until it is more in the hair down to the scalp and caused an abrasion.. Patient states that the sore spot on the top of her head is now very tender is 10 out of 10 pain. Patient is diabetic and is worried about infection. She denies any fevers chill diarrhea at this time. Severity scale (0 -10): 10 - Related Data Home Medications Medication Instructions Recorded Confirmed Last Taken Insulin NPH Hum/Reg Insulin Hm 30 - 40 unit SQ QAMDIAB 10/05/15 01/08/19 10/09/18 20:00 [HumuLIN 70-30 Vial] Amitriptyline [Elavil] 50 mg PO QHS 01/08/19 01/08/19 Unknown Famotidine [Pepcid] 20 mg PO BID 01/08/19 01/08/19 Unknown Oxycodone HCl/Acetaminophen 1 each PO Q4H PRN 01/08/19 01/08/19 Unknown [Percocet 10/325 mg] Promethazine [Phenergan] 25 mg PO Q8HR PRN 01/08/19 01/08/19 Unknown amLODIPine [Norvasc] 10 mg PO DAILY 01/08/19 01/08/19 Unknown Previous Rx's Medication Instructions Recorded Last Taken Type Azithromycin [Zithromax TAB] 500 mg PO QDAY #3 tablet 01/11/19 Unknown Rx Ferrous Gluconate [Fergon 325 MG 325 mg PO QDAY #30 tablet 01/11/19 Unknown Rx tab] Folic Acid [Folvite] 1 mg PO QDAY #30 tablet 01/11/19 Unknown Rx Gabapentin [Neurontin] 300 mg PO DAILY #30 01/11/19 Unknown Rx Famotidine [Pepcid] 40 mg PO QHS #10 tablet 02/27/19 Unknown Rx Ondansetron [Zofran Odt] 4 mg PO Q8HR #10 tab.rapdis 02/27/19 Unknown Rx Pantoprazole [Protonix] 40 mg PO QDAY #30 tablet 02/27/19 Unknown Rx Bacitracin 1 applic TD BID #3.5 oint...g. 04/23/19 Unknown Rx Sulfamethoxazole/Trimethoprim 1 each PO BID #14 tablet 04/23/19 Unknown Rx [Bactrim DS TAB] Allergies Allergy/AdvReac Type Severity Reaction Status Date / Time ketorolac tromethamine Allergy Unknown Verified 10/08/18 18:00 [From Toradol] meperidine HCl [From Demerol] Allergy Shortness Verified 10/08/18 18:00 of Breath ED Review of Systems ROS: Stated complaint: HEAD/BACK PAIN Other details as noted in HPI Comment: All other systems reviewed and negative ED Past Medical Hx - Past Medical History Previous Medical History?: Yes Hx Hypertension: Yes (Hospitalized in hypertensive crisis 08/28/18) Hx CVA: No Hx Congestive Heart Failure: No Hx Diabetes: Yes Hx GERD: Yes Hx Renal Disease: Yes Hx Arthritis: Yes (All joints) Hx Headaches / Migraines: Yes (Migraines) Hx Psychiatric Treatment: No Hx Asthma: Yes (no recent albuterol use) Hx COPD: No Hx HIV: No Additional medical history: spina bifida, Gastroparesis. morbid obesity, home oxygen @ 3LPM nasal cannula - Surgical History Past Surgical History?: Yes Hx Cholecystectomy: Yes Hx Appendectomy: Yes Hx Breast Surgery: Yes (breast reduction) Additional Surgical History: Right chest port-discontinued - Social History Smoking Status: Never Smoker Substance Use Type: None - Medications Home Medications: Home Medications Medication Instructions Recorded Confirmed Last Taken Type Insulin NPH Hum/Reg Insulin Hm 30 - 40 unit SQ QAMDIAB 10/05/15 01/08/19 10/09/18 20:00 History [HumuLIN 70-30 Vial] Amitriptyline [Elavil] 50 mg PO QHS 01/08/19 01/08/19 Unknown History Famotidine [Pepcid] 20 mg PO BID 01/08/19 01/08/19 Unknown History Oxycodone HCl/Acetaminophen 1 each PO Q4H PRN 01/08/19 01/08/19 Unknown History [Percocet 10/325 mg] Promethazine [Phenergan] 25 mg PO Q8HR PRN 01/08/19 01/08/19 Unknown History amLODIPine [Norvasc] 10 mg PO DAILY 01/08/19 01/08/19 Unknown History Azithromycin [Zithromax TAB] 500 mg PO QDAY #3 tablet 01/11/19 Unknown Rx Ferrous Gluconate [Fergon 325 MG 325 mg PO QDAY #30 tablet 01/11/19 Unknown Rx tab] Folic Acid [Folvite] 1 mg PO QDAY #30 tablet 01/11/19 Unknown Rx Gabapentin [Neurontin] 300 mg PO DAILY #30 01/11/19 01/08/19 Unknown Rx Famotidine [Pepcid] 40 mg PO QHS #10 tablet 02/27/19 Unknown Rx Ondansetron [Zofran Odt] 4 mg PO Q8HR #10 tab.rapdis 02/27/19 Unknown Rx Pantoprazole [Protonix] 40 mg PO QDAY #30 tablet 02/27/19 Unknown Rx Bacitracin 1 applic TD BID #3.5 oint...g. 04/23/19 Unknown Rx Sulfamethoxazole/Trimethoprim 1 each PO BID #14 tablet 04/23/19 Unknown Rx [Bactrim DS TAB] ED Physical Exam - General Limitations: No Limitations General appearance: alert, in no apparent distress - Head Head exam: Present: atraumatic, normocephalic - Eye Eye exam: Present: normal appearance - ENT ENT exam: Present: mucous membranes moist - Neck Neck exam: Present: normal inspection - Respiratory Respiratory exam: Present: normal lung sounds bilaterally. Absent: respiratory distress, wheezes, rales, rhonchi - Cardiovascular Cardiovascular Exam: Present: regular rate, normal rhythm. Absent: systolic murmur, diastolic murmur, rubs, gallop - GI/Abdominal GI/Abdominal exam: Present: soft, normal bowel sounds. Absent: distended, tende rness, guarding, rebound - Extremities Exam Extremities exam: Present: normal inspection - Back Exam Back exam: Present: normal inspection - Neurological Exam Neurological exam: Present: alert, oriented X3 - Psychiatric Psychiatric exam: Present: normal affect, normal mood - Skin Skin exam: Present: warm, dry, intact, normal color, other (patient has a round abrasion in the occipital region of her scalp where the hair has been rubbed down to the level of the skin there is some surrounding erythema but no fluctuance). Absent: rash ED Course Vital Signs 04/23/19 04/23/19 04/23/19 11:19 12:06 12:59 Temperature 98.3 F Pulse Rate 93 H Respiratory 18 18 18 Rate Blood Pressure 154/92 [Right] O2 Sat by Pulse 100 Oximetry ED Medical Decision Making - Medical Decision Making Patient's pain and nausea vomiting or rale chronic. She was given an IM shot of morphine and Zofran but that she is in a pain clinic would not be given narcotics for home. Patient does appear to have a abrasion with cellulitis on the scalp secondary to rubbing her head on the carpet. Patient will be started on antibiotics for this wound. Critical care attestation.: If time is entered above; I have spent that time in minutes in the direct care of this critically ill patient, excluding procedure time. ED Disposition Clinical Impression: Cellulitis of scalp, Abrasion, Chronic pain syndrome Disposition: - TO HOME OR SELFCARE Is pt being admited?: No Does the pt Need Aspirin: No Condition: Stable Instructions: Cellulitis (ED) Referrals: CAROLANN IVEY MD [Primary Care Provider] - 3-5 Days Time of Disposition: 13:15
== END 2019-04-23 13:23 | disposition home or self-care (01) ==
LOC: ED 11:07
DX: S00.01XA Abrasion of scalp, initial encounter (principal); L03.811 Cellulitis of head [any part, except face]; G89.4 Chronic pain syndrome; I10 Essential (primary) hypertension; E11.9 Type 2 diabetes mellitus without complications; K21.9 Gastro-esophageal reflux disease without esophagitis; G43.909 Migraine, unspecified, not intractable, without status migrainosus; J45.909 Unspecified asthma, uncomplicated; E66.01 Morbid (severe) obesity due to excess calories; Z68.43 Body mass index [BMI] 50.0-59.9, adult; Z87.442 Personal history of urinary calculi; Z79.4 Long term (current) use of insulin; Z79.899 Other long term (current) drug therapy; Z88.5 Allergy status to narcotic agent; W18.09XA Striking against other object with subsequent fall, initial encounter; Y93.89 Activity, other specified; Y92.89 Other specified places as the place of occurrence of the external cause; Y99.8 Other external cause status
CPT/HCPCS: 96372; 99282; J2270; J2405

== ENCOUNTER 2019-07-05 10:42 | Emergency (ER) | payer MEDICAID ==
[2019-07-05] MEDS ORDERED: ZOFRAN ODT PO ONE (11:24)
[2019-07-05] MEDS ORDERED: PERCOCET 5/325 PO ONE (11:24)
[2019-07-05] MEDS ORDERED: NORMODYNE PO ONE (11:24)
--- NOTE | 2019-07-05 11:33 | Emergency Department Report ---
ED Back Pain/Injury HPI - General Chief Complaint: Abdominal Pain Stated Complaint: ABD/BACK PAIN/VOMITING Time Seen by Provider: 07/05/19 11:21 Source: patient Limitations: No Limitations - History of Present Illness Initial Comments: Mrs. Duong is a 43-year-old female with history of diabetes mellitus, hypertension, chronic kidney disease chronic back pain opioid dependency presents with "flareup of my spina bifida". She states that she has back pain this severe every other month. She denies new leg weakness. She uses a walker and wheelchair due to severe back pain. No trauma. No fever. Lower back pain without radiation. Denies abdominal pain. CT abdomen and pelvis results from February 2019: Distal esophageal thickening, evidence of cholecystectomy, prominent liver, post appendectomy changes MD Complaint: back pain -: Gradual, days(s) (3) Similar Symptoms Previously: Yes Place: home Radiation: other (back ) Severity: severe Severity scale (0 -10): 10 Quality: dull Consistency: constant Improves With: none Worsens With: movement Associated Symptoms: denies other symptoms - Related Data Home Medications Medication Instructions Recorded Confirmed Last Taken Insulin NPH Hum/Reg Insulin Hm 30 - 40 unit SQ QAMDIAB 10/05/15 01/08/19 10/09/18 20:00 [HumuLIN 70-30 Vial] Amitriptyline [Elavil] 50 mg PO QHS 01/08/19 01/08/19 Unknown Famotidine [Pepcid] 20 mg PO BID 01/08/19 01/08/19 Unknown Oxycodone HCl/Acetaminophen 1 each PO Q4H PRN 01/08/19 01/08/19 Unknown [Percocet 10/325 mg] Promethazine [Phenergan] 25 mg PO Q8HR PRN 01/08/19 01/08/19 Unknown amLODIPine [Norvasc] 10 mg PO DAILY 01/08/19 01/08/19 Unknown Previous Rx's Medication Instructions Recorded Last Taken Type Azithromycin [Zithromax TAB] 500 mg PO QDAY #3 tablet 01/11/19 Unknown Rx Ferrous Gluconate [Fergon 325 MG 325 mg PO QDAY #30 tablet 01/11/19 Unknown Rx tab] Folic Acid [Folvite] 1 mg PO QDAY #30 tablet 01/11/19 Unknown Rx Gabapentin [Neurontin] 300 mg PO DAILY #30 01/11/19 Unknown Rx Famotidine [Pepcid] 40 mg PO QHS #10 tablet 02/27/19 Unknown Rx Ondansetron [Zofran Odt] 4 mg PO Q8HR #10 tab.rapdis 02/27/19 Unknown Rx Pantoprazole [Protonix] 40 mg PO QDAY #30 tablet 02/27/19 Unknown Rx Bacitracin 1 applic TD BID #3.5 oint...g. 04/23/19 Unknown Rx Sulfamethoxazole/Trimethoprim 1 each PO BID #14 tablet 04/23/19 Unknown Rx [Bactrim DS TAB] oxyCODONE /ACETAMINOPHEN [Percocet 1 tab PO Q6HR PRN #10 tablet 07/05/19 Unknown Rx 5/325] Allergies Allergy/AdvReac Type Severity Reaction Status Date / Time ketorolac tromethamine Allergy Unknown Verified 07/05/19 10:47 [From Toradol] meperidine HCl [From Demerol] Allergy Shortness Verified 07/05/19 10:47 of Breath ED Review of Systems ROS: Stated complaint: ABD/BACK PAIN/VOMITING Other details as noted in HPI Comment: All other systems reviewed and negative Constitutional: denies: fever, malaise Gastrointestinal: denies: abdominal pain, nausea, vomiting Musculoskeletal: back pain ED Past Medical Hx - Past Medical History Previous Medical History?: Yes Hx Hypertension: Yes (Hospitalized in hypertensive crisis 08/28/18) Hx CVA: No Hx Congestive Heart Failure: No Hx Diabetes: Yes Hx GERD: Yes Hx Renal Disease: Yes Hx Arthritis: Yes (All joints) Hx Headaches / Migraines: Yes (Migraines) Hx Psychiatric Treatment: No Hx Asthma: Yes (no recent albuterol use) Hx COPD: No Hx HIV: No Additional medical history: spina bifida, Gastroparesis. morbid obesity, home oxygen @ 3LPM nasal cannula - Surgical History Hx Cholecystectomy: Yes Hx Appendectomy: Yes Hx Breast Surgery: Yes (breast reduction) Additional Surgical History: Right chest port-discontinued - Social History Smoking Status: Never Smoker Substance Use Type: None - Medications Home Medications: Home Medications Medication Instructions Recorded Confirmed Last Taken Type Insulin NPH Hum/Reg Insulin Hm 30 - 40 unit SQ QAMDIAB 10/05/15 01/08/19 10/09/18 20:00 History [HumuLIN 70-30 Vial] Amitriptyline [Elavil] 50 mg PO QHS 01/08/19 01/08/19 Unknown History Famotidine [Pepcid] 20 mg PO BID 01/08/19 01/08/19 Unknown History Oxycodone HCl/Acetaminophen 1 each PO Q4H PRN 01/08/19 01/08/19 Unknown History [Percocet 10/325 mg] Promethazine [Phenergan] 25 mg PO Q8HR PRN 01/08/19 01/08/19 Unknown History amLODIPine [Norvasc] 10 mg PO DAILY 01/08/19 01/08/19 Unknown History Azithromycin [Zithromax TAB] 500 mg PO QDAY #3 tablet 01/11/19 Unknown Rx Ferrous Gluconate [Fergon 325 MG 325 mg PO QDAY #30 tablet 01/11/19 Unknown Rx tab] Folic Acid [Folvite] 1 mg PO QDAY #30 tablet 01/11/19 Unknown Rx Gabapentin [Neurontin] 300 mg PO DAILY #30 01/11/19 01/08/19 Unknown Rx Famotidine [Pepcid] 40 mg PO QHS #10 tablet 02/27/19 Unknown Rx Ondansetron [Zofran Odt] 4 mg PO Q8HR #10 tab.rapdis 02/27/19 Unknown Rx Pantoprazole [Protonix] 40 mg PO QDAY #30 tablet 02/27/19 Unknown Rx Bacitracin 1 applic TD BID #3.5 oint...g. 04/23/19 Unknown Rx Sulfamethoxazole/Trimethoprim 1 each PO BID #14 tablet 04/23/19 Unknown Rx [Bactrim DS TAB] oxyCODONE /ACETAMINOPHEN [Percocet 1 tab PO Q6HR PRN #10 tablet 07/05/19 Unknown Rx 5/325] ED Physical Exam - General Limitations: No Limitations General appearance: alert, in no apparent distress - Head Head exam: Present: atraumatic, normocephalic - Eye Eye exam: Present: normal appearance - ENT ENT exam: Present: mucous membranes moist - Neck Neck exam: Present: normal inspection, full ROM - Respiratory Respiratory exam: Present: normal lung sounds bilaterally. Absent: respiratory distress, wheezes, rales, rhonchi - Cardiovascular Cardiovascular Exam: Present: regular rate, normal rhythm, normal heart sounds. Absent: systolic murmur, diastolic murmur, rubs, gallop - GI/Abdominal GI/Abdominal exam: Present: soft, normal bowel sounds. Absent: distended, tenderness, guarding, rebound - Extremities Exam Extremities exam: Present: normal inspection - Neurological Exam Neurological exam: Present: alert, oriented X3 - Psychiatric Psychiatric exam: Present: normal affect, normal mood - Skin Skin exam: Present: warm, dry, intact, normal color. Absent: rash ED Course Vital Signs 07/05/19 10:47 Temperature 98.6 F Pulse Rate 97 H Respiratory 20 Rate Blood Pressure 214/134 O2 Sat by Pulse 100 Oximetry ED Medical Decision Making - Medical Decision Making 1. recurrent chronic back pain without red flags such as trauma, fever, weight loss, hx of cancer, given percocet in ED, prescription for 10 tabs of percocet 2. Hypertensive urgency without signs symptoms of end organ damage. Repeat blood pressure 139/70 without medication. Instructed to take home medications Critical care attestation.: If time is entered above; I have spent that time in minutes in the direct care of this critically ill patient, excluding procedure time. ED Disposition Clinical Impression: Chronic back pain, Hypertensive urgency Disposition: DC-01 TO HOME OR SELFCARE Is pt being admited?: No Does the pt Need Aspirin: No Condition: Stable Instructions: Chronic Back Pain (ED) Prescriptions: oxyCODONE /ACETAMINOPHEN [Percocet 5/325] 1 tab PO Q6HR PRN #10 tablet PRN Reason: Pain Referrals: PRIMARY CARE, [Referring] - 3-5 Days
[2019-07-05 11:37] VITALS: BP 139/101
== END 2019-07-05 12:01 | disposition home or self-care (01) ==
LOC: ED 10:42
DX: I16.0 Hypertensive urgency (principal); M54.89 Other dorsalgia; G89.29 Other chronic pain; I10 Essential (primary) hypertension; E11.9 Type 2 diabetes mellitus without complications; K21.9 Gastro-esophageal reflux disease without esophagitis; M19.90 Unspecified osteoarthritis, unspecified site; G43.909 Migraine, unspecified, not intractable, without status migrainosus; E66.01 Morbid (severe) obesity due to excess calories; Z68.43 Body mass index [BMI] 50.0-59.9, adult; Z90.49 Acquired absence of other specified parts of digestive tract; Z79.899 Other long term (current) drug therapy; Z79.4 Long term (current) use of insulin; Z88.6 Allergy status to analgesic agent
CPT/HCPCS: 99282; Q0162

== ENCOUNTER 2019-07-16 07:36 | Emergency (ER) | payer MEDICAID ==
[2019-07-16 08:02] VITALS: BP 194/105
--- NOTE | 2019-07-16 08:05 | Emergency Department Report ---
Vomiting/Diarrhea - HPI Chief Complaint: Nausea/Vomiting/Diarrhea Stated Complaint: NAUSEA/ABDOMINAL/BACK PAIN Time Seen by Provider: 07/16/19 08:04 Severity: moderate Nausea/Vomiting Severity: None Diarrhea Severity: None Pain Location: Other Pain Severity: Moderate Symptoms: Yes Able to Tolerate Fluids, No Watery Diarrhea, No Bloody diarrhea, No Fever, No Recent Unusual Foods, No Recent Untreated Water, No Recent use of Antibiotics, No Family w/ Similar Symptoms, No Contacts w/ Similar Symptoms, No Rash, No Hematuria, No Recent URI Symptoms Other History: 43 YO MORBIDLY OBESE FEMALE WELL KNOWN TO US COMES TO ER WITH LOW BACK PAIN. SHE IS IN CHRONIC PAIN PROGRAM AND HAS APPNT IN AM WITH . SHE STATES SHE NEVER GETS THE OXY FILLED FROM ER. SHE IS AMBULATORY AND NON TOXIC ON EXAM. SHE IS TAKING HER USUAL HOME MEDS BUT THE PAIN IS WORSE TODAY. NO FEVER OR CHILLS. NO COUGH. NO ABD PAIN. SHE STATES SHE FEELS DEHYDRATED. ED Review of Systems ROS: Stated complaint: NAUSEA/ABDOMINAL/BACK PAIN Other details as noted in HPI Comment: All other systems reviewed and negative ED Past Medical Hx - Past Medical History Hx Hypertension: Yes (Hospitalized in hypertensive crisis 08/28/18) Hx CVA: No Hx Congestive Heart Failure: No Hx Diabetes: Yes Hx GERD: Yes Hx Renal Disease: Yes Hx Arthritis: Yes (All joints) Hx Headaches / Migraines: Yes (Migraines) Hx Psychiatric Treatment: No Hx Asthma: Yes (no recent albuterol use) Hx COPD: No Hx HIV: No Additional medical history: spina bifida, Gastroparesis. morbid obesity, home oxygen @ 3LPM nasal cannula - Surgical History Hx Cholecystectomy: Yes Hx Appendectomy: Yes Hx Breast Surgery: Yes (breast reduction) Additional Surgical History: Right chest port-discontinued - Social History Smoking Status: Never Smoker Substance Use Type: None - Medications Home Medications: Home Medications Medication Instructions Recorded Confirmed Last Taken Type Insulin NPH Hum/Reg Insulin Hm 30 - 40 unit SQ QAMDIAB 10/05/15 01/08/19 10/09/18 20:00 History [HumuLIN 70-30 Vial] Amitriptyline [Elavil] 50 mg PO QHS 01/08/19 01/08/19 Unknown History Famotidine [Pepcid] 20 mg PO BID 01/08/19 01/08/19 Unknown History Promethazine [Phenergan] 25 mg PO Q8HR PRN 01/08/19 01/08/19 Unknown History amLODIPine [Norvasc] 10 mg PO DAILY 01/08/19 01/08/19 Unknown History Ferrous Gluconate [Fergon 325 MG 325 mg PO QDAY #30 tablet 01/11/19 Unknown Rx tab] Folic Acid [Folvite] 1 mg PO QDAY #30 tablet 01/11/19 Unknown Rx Gabapentin [Neurontin] 300 mg PO DAILY #30 01/11/19 01/08/19 Unknown Rx Famotidine [Pepcid] 40 mg PO QHS #10 tablet 02/27/19 Unknown Rx Pantoprazole [Protonix] 40 mg PO QDAY #30 tablet 02/27/19 Unknown Rx Bacitracin 1 applic TD BID #3.5 oint...g. 04/23/19 Unknown Rx oxyCODONE /ACETAMINOPHEN [Percocet 1 tab PO Q6HR PRN #10 tablet 07/05/19 Unk nown Rx 5/325] Vomiting Diarrhea Exam - Exam General: Vital signs noted. No distress. Alert and acting appropriately. HEENT: Yes Moist Mucous Membranes, No Pharyngeal Erythema, No Pharyngeal Exudate s, No Rhinorrhea Neck: No Adenopathy, No Rigidity Lungs: Yes Clear Lung Sounds, Yes Good Air Exchange, No Wheezes Heart exam: Regular: Yes Abdomen: Tenderness: No, Peritoneal Signs: No, Distention: No, Hyperactive Bowel sounds: No Skin exam: Rash: No Neurologic: Alert and oriented, no deficits. Musculoskeletal: Unremarkable. ED Course Vital Signs 07/16/19 07:52 Temperature 98.9 F Pulse Rate 93 H Respiratory 20 Rate Blood Pressure 194/105 O2 Sat by Pulse 99 Oximetry - Reevaluation(s) Reevaluation #1: 07/16/19 08:51 PT STATES SHE HAS TO GO SHE CAN NOT WAIT ANY LONGER ED Medical Decision Making - Lab Data Result diagrams: 07/16/19 08:08 - Medical Decision Making Vital Signs 07/16/19 07:52 Temperature 98.9 F Pulse Rate 93 H Respiratory 20 Rate Blood Pressure 194/105 O2 Sat by Pulse 99 Oximetry MEDICATED WITH DECADRON AND ZOFRAN DC HOME WITH DC PLAN OF CARE Labs 07/16/19 07/16/19 07/16/19 08:08 08:08 Unknown WBC 5.0 RBC 3.25 L Hgb 9.9 L Hct 30.8 MCV 95 MCH 30 MCHC 32 RDW 15.3 H Plt Count 241 Sodium 139 Potassium 3.8 Chloride 102.8 Carbon Dioxide 22 Anion Gap 18 BUN 15 Creatinine 1.2 Estimated GFR 60 BUN/Creatinine Ratio 13 Glucose 198 H Calcium 9.0 Total Bilirubin 0.30 AST 12 ALT 8 Alkaline Phosphatase 115 Total Protein 7.9 Albumin 4.0 Albumin/Globulin Ratio 1.0 Urine Color Yellow Urine Turbidity Slightly-cloudy Urine pH 6.0 Ur Specific Pingree 1.018 Urine Protein <15 mg/dl Urine Glucose (UA) Neg Urine Ketones Neg Urine Blood Neg Urine Nitrite Neg Urine Bilirubin Neg Urine Urobilinogen < 2.0 Ur Leukocyte Esterase Neg Urine WBC (Auto) 5.0 Urine RBC (Auto) 1.0 U Epithel Cells (Auto) 2.0 Urine Bacteria (Auto) 1+ Urine HCG, Qual Negative - Differential Diagnosis AC PAIN Critical care attestation.: If time is entered above; I have spent that time in minutes in the direct care of this critically ill patient, excluding procedure time. ED Disposition Clinical Impression: Anemia, Chronic back pain, HTN (hypertension), CKD (chronic kidney disease) Disposition: DC-01 TO HOME OR SELFCARE Is pt being admited?: No Does the pt Need Aspirin: No Condition: Stable Instructions: Hypertension (ED) Additional Instructions: SEE YOUR PAIN MD IN AM SCHEDULED TAKE YOUR BP MEDS Referrals: PRIMARY CARE, [Primary Care Provider] - 3-5 Days Time of Disposition: 08:48
[2019-07-16] MEDS ORDERED: dexAMETHasone 4 MG/ML VIAL IM ONE (08:13)
[2019-07-16] MEDS ORDERED: ONDANSETRON 4 MG ODT TAB PO ONE (08:25)
[2019-07-16 08:29] LABS: Bacteria,Urine 1+ /HPF (Negative); Bilirubin,Urine NEG (Negative); Blood,Urine NEG (Negative); Color,Urine Yellow (Yellow); Protein,Urine <15 mg/dL mg/dL (Negative); Urobilinogen,Urine < 2.0 mg/dL (<2.0)
[2019-07-16 08:35] LABS: HCG Qualitative,Urine Negative (Negative)
[2019-07-16 08:45] LABS: Hematocrit 30.8 % (30.3-42.9); Hemoglobin 9.9 gm/dl (10.1-14.3); Mean Corpuscular HGB Conc 32 % (30-34); Mean Corpuscular Volume 95 fl (79-97); Platelet Count 241 K/mm3 (140-440); Red Blood Count 3.25 M/mm3 (3.65-5.03); Red Cell Distribution Width 15.3 % (13.2-15.2)
== END 2019-07-16 08:51 | disposition home or self-care (01) ==
LOC: ED 07:36
DX: G89.29 Other chronic pain (principal); M54.5 Low back pain; D64.9 Anemia, unspecified; E11.22 Type 2 diabetes mellitus with diabetic chronic kidney disease; I13.0 Hypertensive heart and chronic kidney disease with heart failure and stage 1 through stage 4 chronic kidney disease, or unspecified chronic kidney disease; N18.9 Chronic kidney disease, unspecified; I50.9 Heart failure, unspecified; Z88.6 Allergy status to analgesic agent; Z79.4 Long term (current) use of insulin; Z88.8 Allergy status to other drugs, medicaments and biological substances
CPT/HCPCS: 36415; 80053; 81001; 81025; 85027; 96372; 99283; J1100; Q0162

== ENCOUNTER 2019-07-31 11:40 | Emergency (ER) | payer MEDICAID ==
--- NOTE | 2019-07-31 12:03 | Event Note ---
ED Screening Note Date of service: 07/31/19 Time: 12:00 ED Screening Note: 43 y/o female c/o N/V no diarrhea. PMH DM blood sugar today 128. This initial assessment/diagnostic orders/clinical plan/treatment(s) is/are subject to change based on patients health status, clinical progression and re- assessment by fellow clinical providers in the ED. Further treatment and workup at subsequent clinical providers discretion. Patient/guardian urged not to elope from the ED as their condition may be serious if not clinically assessed and managed. Initial orders include:
[2019-07-31] MEDS ORDERED: DICYCLOMINE 20 MG/2 ML INJ IM ONE (12:20)
[2019-07-31] MEDS ORDERED: SODIUM CHLORIDE 0.9% 1000 ML 1,000 ML IV ONE (12:20)
[2019-07-31] MEDS ORDERED: PANTOPRAZOLE 40 MG INJ IV ONE (12:20)
[2019-07-31] MEDS ORDERED: ONDANSETRON 4 MG/2 ML INJ IV ONE (12:20)
--- NOTE | 2019-07-31 12:54 | Emergency Department Report ---
<ZAIDA PARNELL - Last Filed: 07/31/19 14:09> ED General Adult HPI - General Chief complaint: Nausea/Vomiting/Diarrhea Stated complaint: VOMITING/ABD/BACK PAIN Time Seen by Provider: 07/31/19 11:59 Source: patient Mode of arrival: Ambulatory Limitations: No Limitations - History of Present Illness Initial comments: Patient is a 43-year-old female presents emergency room with complaints of chronic abdominal pain, chronic back pain, nausea and vomiting began a few days ago. She has been evaluated in the emergency department on multiple occasions for these complaints. Patient denies any fever, chills, urinary symptoms, diarrhea, hematemesis, hematochezia, melena. States she had a normal bowel movement this morning. Patient states that she has not been taking her medications. She states that she goes to [facility] and last saw them last month. pt states she has had scopes performed by [facility]. - Related Data Home Medications Medication Instructions Recorded Confirmed Last Taken Insulin NPH Hum/Reg Insulin Hm 30 - 40 unit SQ QAMDIAB 10/05/15 01/08/1910/09 20:00 [HumuLIN 70-30 Vial] Amitriptyline [Elavil] 50 mg PO QHS 01/08/19 01/08/19 Unknown Famotidine [Pepcid] 20 mg PO BID 01/08/19 01/08/19 Unknown Promethazine [Phenergan] 25 mg PO Q8HR PRN 01/08/19 01/08/19 Unknown amLODIPine [Norvasc] 10 mg PO DAILY 01/08/19 01/08/19 Unknown Previous Rx's Medication Instructions Recorded Last Taken Type Ferrous Gluconate [Fergon 325 MG 325 mg PO QDAY #30 tablet 01/11/19 Unknown Rx tab] Folic Acid [Folvite] 1 mg PO QDAY #30 tablet 01/11/19 Unknown Rx Gabapentin [Neurontin] 300 mg PO DAILY #30 01/11/19 Unknown Rx Famotidine [Pepcid] 40 mg PO QHS #10 tablet 02/27/19 Unknown Rx Pantoprazole [Protonix] 40 mg PO QDAY #30 tablet 02/27/19 Unknown Rx Bacitracin 1 applic TD BID #3.5 oint...g. 04/23/19 Unknown Rx oxyCODONE /ACETAMINOPHEN [Percocet 1 tab PO Q6HR PRN #10 tablet 07/05/19 Unknown Rx 5/325] Allergies Allergy/AdvReac Type Severity Reaction Status Date / Time ketorolac tromethamine Allergy Unknown Verified 07/05/19 10:47 [From Toradol] meperidine HCl [From Demerol] Allergy Shortness Verified 07/05/19 10:47 of Breath ED Review of Systems Comment: All other systems reviewed and negative ED Past Medical Hx - Past Medical History Previous Medical History?: Yes Hx Hypertension: Yes (Hospitalized in hypertensive crisis 08/28/18) Hx CVA: No Hx Congestive Heart Failure: No Hx Diabetes: Yes Hx GERD: Yes Hx Renal Disease: Yes Hx Arthritis: Yes (All joints) Hx Headaches / Migraines: Yes (Migraines) Hx Psychiatric Treatment: No Hx Asthma: Yes (no recent albuterol use) Hx COPD: No Hx HIV: No Additional medical history: spina bifida, Gastroparesis. morbid obesity, home oxygen @ 3LPM nasal cannula - Surgical History Past Surgical History?: Yes Hx Cholecystectomy: Yes Hx Appendectomy: Yes Hx Breast Surgery: Yes (breast reduction) Additional Surgical History: Right chest port-discontinued - Social History Smoking Status: Never Smoker Substance Use Type: None - Medications Home Medications: Home Medications Medication Instructions Recorded Confirmed Last Taken Type Insulin NPH Hum/Reg Insulin Hm 30 - 40 unit SQ QAMDIAB 10/05/15 01/08/19 10/09/18 20:00 History [HumuLIN 70-30 Vial] Amitriptyline [Elavil] 50 mg PO QHS 01/08/19 01/08/19 Unknown History Famotidine [Pepcid] 20 mg PO BID 01/08/19 01/08/19 Unknown History Promethazine [Phenergan] 25 mg PO Q8HR PRN 01/08/19 01/08/19 Unknown History amLODIPine [Norvasc] 10 mg PO DAILY 01/08/19 01/08/19 Unknown History Ferrous Gluconate [Fergon 325 MG 325 mg PO QDAY #30 tablet 01/11/19 Unknown Rx tab] Folic Acid [Folvite] 1 mg PO QDAY #30 tablet 01/11/19 Unknown Rx Gabapentin [Neurontin] 300 mg PO DAILY #30 01/11/19 01/08/19 Unknown Rx Famotidine [Pepcid] 40 mg PO QHS #10 tablet 02/27/19 Unknown Rx Pantoprazole [Protonix] 40 mg PO QDAY #30 tablet 02/27/19 Unknown Rx Bacitracin 1 applic TD BID #3.5 oint...g. 04/23/19 Unknown Rx oxyCODONE /ACETAMINOPHEN [Percocet 1 tab PO Q6HR PRN #10 tablet 07/05/19 Unknown Rx 5/325] ED Physical Exam - General Limitations: No Limitations General appearance: alert, in no apparent distress, other (non toxic appearing) - Head Head exam: Present: atraumatic, normocephalic - ENT ENT exam: Present: mucous membranes moist - Respiratory Respiratory exam: Present: normal lung sounds bilaterally. Absent: respiratory distress, wheezes, rales, rhonchi, stridor, chest wall tenderness, accessory muscle use, decreased breath sounds, prolonged expiratory - Cardiovascular Cardiovascular Exam: Present: regular rate, normal rhythm, normal heart sounds. Absent: systolic murmur, diastolic murmur, rubs, gallop - GI/Abdominal GI/Abdominal exam: Present: soft, normal bowel sounds, other (protuberant abdomen). Absent: distended, tenderness, guarding, rebound, rigid - Neurological Exam Neurological exam: Present: alert, oriented X3 - Psychiatric Psychiatric exam: Present: normal affect, normal mood - Skin Skin exam: Present: warm, dry, intact ED Course - Reevaluation(s) Reevaluation #1: 07/31/19 13:15 pt is requesting morphine specifically by name for her chronic back pain, advised pt that we do not use narcotics for chronic back pain Reevaluation #2: 07/31/19 14:08 advised pt she could have two oxycodone tablets for her chronic pain, pt declined states she wants IV narcotics ED Medical Decision Making - Medical Decision Making Patient is a 43-year-old female presents emergency room with complaints of chronic abdominal pain, chronic back pain, nausea and vomiting began a few days ago. She has been evaluated in the emergency department on multiple occasions for these complaints. Patient denies any fever, chills, urinary symptoms, diarrhea, hematemesis, hematochezia, melena. States she had a normal bowel movement this morning. Patient states that she has not been taking her medications. She states that she goes to [facility] and last saw them last month. pt states she has had scopes performed by [facility]. vitals with elevated blood pressure, otherwise normal. pt states she has not been taking her blood pressure medication, pt is asymptomatic. on exam no abd tenderness to palpation, bowel sounds are normal, abd is soft, no rigidity, no peritoneal signs. pt has had no episodes of emesis while in the ED, pt is tolerating PO intake. pt was given bentyl, zofran, and protonix. pt is requesting morphine specifically by name for her chronic back pain, advised pt that we do not use narcotics for chronic back pain. advised pt she could have two oxycodone tablets for her chronic pain, pt declined states she wants IV narcotics. pt states that oxycodone/hydrocodone doesnt work for her. discussed again with pt that we do not treat chronic pain with IV narcotics, and we do not prescribe narcotics for chronic pain. pt was looked up in the [place] [employer] system it appears pt got 10 tablets of hydrocodone on 07/22/19, 30 tablets of oxycodone on 07/19/19, 10 tablets of oxycodone on 07/17/19, 8 tablets of oxycodone on 07/17/19, and continuous other prescriptions during previous months. it appears pt has been changing from provider to provider and is hospital hopping. I fear pt is exhibiting drug seeking behavior. pt will not be given any more narcotics during todays visit. pt was referred back to her GI provider for her chronic abd pain and to a pain specialist for her chronic back pain. advised pt to please follow- up with your GI doctor and a spine doctor in the next 2-3 days. please take your medications as your prescribed by your primary care doctor. Return to the emergency room for any new or worsening symptoms. ED Disposition Clinical Impression: Chronic abdominal pain Chronic back pain Qualifiers: Back pain location: low back pain Back pain laterality: unspecified Sciatica presence: without sciatica Qualified Code(s): M54.5 - Low back pain Disposition: - TO HOME OR SELFCARE Is pt being admited?: No Does the pt Need Aspirin: No Condition: Fair Instructions: Abdominal Pain (ED), Chronic Back Pain (ED) Additional Instructions: Please follow-up with your GI doctor and a spine doctor in the next 2-3 days. please take your medications as your prescribed by your primary care doctor. Return to the emergency room for any new or worsening symptoms. [facility] Address: [address], [place] [address] Referrals: PRIMARY CARE, [Primary Care Provider] - 2-3 Days [facility] [Provider Group] - 2-3 Days Forms: AMA Form Time of Disposition: 14:02 Print Language: TURKISH <BARTOLO DE LA CRUZ - Last Filed: 07/31/19 14:20> ED Review of Systems ROS: Stated complaint: VOMITING/ABD/BACK PAIN Other details as noted in HPI ED Course Vital Signs 07/31/19 11:59 Temperature 98.0 F Pulse Rate 93 H Respiratory 18 Rate Blood Pressure 174/103 O2 Sat by Pulse 99 Oximetry ED Medical Decision Making - Medical Decision Making I evaluated Mrs. Duong. She presents with chronic abdominal pain without indication of acute peritonitis or acute inflammatory process. She is ambulato ry without difficulty. She stated that her pain management physician had relocated. However upon review of the [place] prescription database, she recently received a 30 tablet prescription of narcotic medication just 9 days ago. I am concerned for drug-seeking behavior. Patient states that "I'm not junky.". I have attempted to explain that with her obvious opioid dependence, further prescriptions of opioid type medication is inappropriate from the emergency department. Of note I did provide a prescription for opioid type medication to Mrs. Duong 10 tablets during a recent ED encounter. Critical care attestation.: If time is entered above; I have spent that time in minutes in the direct care of this critically ill patient, excluding procedure time. ED Disposition Is pt being admited?: No
[2019-07-31] MEDS ORDERED: oxyCODONE /ACETAMINOPHEN 5-325MG TAB PO ONE (13:59)
[2019-07-31 14:36] VITALS: BP 135/112
== END 2019-07-31 14:36 | disposition home or self-care (01) ==
LOC: ED 11:40
DX: G89.29 Other chronic pain (principal); R10.9 Unspecified abdominal pain; M54.5 Low back pain; I10 Essential (primary) hypertension; E11.9 Type 2 diabetes mellitus without complications; K21.9 Gastro-esophageal reflux disease without esophagitis; G43.909 Migraine, unspecified, not intractable, without status migrainosus; J45.909 Unspecified asthma, uncomplicated
CPT/HCPCS: 96361; 96372; 96374; 96375; 99282; C9113; J0500; J2405; J7030

== ENCOUNTER 2019-09-04 11:14 | Emergency (ER) | payer MEDICAID ==
[2019-09-04 11:45] VITALS: BP 200/131
--- NOTE | 2019-09-04 12:29 | Emergency Department Report ---
ED Back Pain/Injury HPI - General Chief Complaint: Nausea/Vomiting/Diarrhea Stated Complaint: BACK PAIN/NAUSEA Time Seen by Provider: 09/04/19 12:28 Source: patient, EMS Limitations: Physical Limitation - History of Present Illness Initial Comments: 43 yo AA female comes to ER with a/c back pain. Pt is well known to us. This is her 10th visit to ER this year for the same. Rx penergan percocoet lisinopril PCP Dr Peace LMP now Similar Symptoms Previously: Yes Place: home Associated Symptoms: denies other symptoms - Related Data Home Medications Medication Instructions Recorded Confirmed Last Taken Insulin NPH Hum/Reg Insulin Hm 30 - 40 unit SQ QAMDIAB 10/05/15 01/08/19 10/09/18 20:00 [HumuLIN 70-30 Vial] Amitriptyline [Elavil] 50 mg PO QHS 01/08/19 01/08/19 Unknown Famotidine [Pepcid] 20 mg PO BID 01/08/19 01/08/19 Unknown Promethazine [Phenergan] 25 mg PO Q8HR PRN 01/08/19 01/08/19 Unknown amLODIPine 10 mg PO DAILY 01/08/19 01/08/19 Unknown Previous Rx's Medication Instructions Recorded Last Taken Type Ferrous Gluconate [Fergon 325 MG 325 mg PO QDAY #30 tablet 01/11/19 Unknown Rx tab] Folic Acid [Folvite] 1 mg PO QDAY #30 tablet 01/11/19 Unknown Rx Gabapentin 300 mg PO DAILY #30 01/11/19 Unknown Rx Famotidine [Pepcid] 40 mg PO QHS #10 tablet 02/27/19 Unknown Rx Pantoprazole [Protonix] 40 mg PO QDAY #30 tablet 02/27/19 Unknown Rx Bacitracin 1 applic TD BID #3.5 oint...g. 04/23/19 Unknown Rx oxyCODONE /ACETAMINOPHEN [Percocet 1 tab PO Q6HR PRN #10 tablet 07/05/19 Unknown Rx 5/325] Allergies Allergy/AdvReac Type Severity Reaction Status Date / Time ketorolac tromethamine Allergy Unknown Verified 07/05/19 10:47 [From Toradol] meperidine HCl [From Demerol] Allergy Shortness Verified 07/05/19 10:47 of Breath ED Review of Systems ROS: Stated complaint: BACK PAIN/NAUSEA Other details as noted in HPI Comment: All other systems reviewed and negative ED Past Medical Hx - Past Medical History Previous Medical History?: Yes Hx Hypertension: Yes (Hospitalized in hypertensive crisis 08/28/18) Hx CVA: No Hx Congestive Heart Failure: No Hx Diabetes: Yes Hx GERD: Yes Hx Renal Disease: Yes Hx Arthritis: Yes (All joints) Hx Headaches / Migraines: Yes (Migraines) Hx Psychiatric Treatment: No Hx Asthma: Yes (no recent albuterol use) Hx COPD: No Hx HIV: No Additional medical history: spina bifida, Gastroparesis. morbid obesity, home oxygen @ 3LPM nasal cannula - Surgical History Hx Cholecystectomy: Yes Hx Appendectomy: Yes Hx Breast Surgery: Yes (breast reduction) Additional Surgical History: Right chest port-discontinued - Social History Smoking Status: Never Smoker Substance Use Type: None - Medications Home Medications: Home Medications Medication Instructions Recorded Confirmed Last Taken Type Insulin NPH Hum/Reg Insulin Hm 30 - 40 unit SQ QAMDIAB 10/05/15 01/08/19 10/09/18 20:00 History [HumuLIN 70-30 Vial] Amitriptyline [Elavil] 50 mg PO QHS 01/08/19 01/08/19 Unknown History Famotidine [Pepcid] 20 mg PO BID 01/08/19 01/08/19 Unknown History Promethazine [Phenergan] 25 mg PO Q8HR PRN 01/08/19 01/08/19 Unknown History amLODIPine 10 mg PO DAILY 01/08/19 01/08/19 Unknown History Ferrous Gluconate [Fergon 325 MG 325 mg PO QDAY #30 tablet 01/11/19 Unknown Rx tab] Folic Acid [Folvite] 1 mg PO QDAY #30 tablet 01/11/19 Unknown Rx Gabapentin 300 mg PO DAILY #30 01/11/19 01/08/19 Unknown Rx Famotidine [Pepcid] 40 mg PO QHS #10 tablet 02/27/19 Unknown Rx Pantoprazole [Protonix] 40 mg PO QDAY #30 tablet 02/27/19 Unknown Rx Bacitracin 1 applic TD BID #3.5 oint...g. 04/23/19 Unknown Rx oxyCODONE /ACETAMINOPHEN [Percocet 1 tab PO Q6HR PRN #10 tablet 07/05/19 Unknown Rx 5/325] ED Physical Exam - General Limitations: Physical Limitation General appearance: alert, in no apparent distress - Head Head exam: Present: atraumatic, normocephalic - Eye Eye exam: Present: normal appearance - ENT ENT exam: Present: mucous membranes moist - Neck Neck exam: Present: normal inspection - Respiratory Respiratory exam: Present: normal lung sounds bilaterally. Absent: respiratory distress - Cardiovascular Cardiovascular Exam: Present: regular rate, normal rhythm. Absent: systolic murmur, diastolic murmur, rubs, gallop - GI/Abdominal GI/Abdominal exam: Present: soft, normal bowel sounds, other (morbidly obese) - Rectal Rectal exam: Present: deferred - Extremities Exam Extremities exam: Present: normal inspection - Back Exam Back exam: Present: normal inspection - Neurological Exam Neurological exam: Present: alert, oriented X3 - Psychiatric Psychiatric exam: Present: normal affect, normal mood - Skin Skin exam: Present: warm, dry, intact, normal color. Absent: rash ED Course Vital Signs 09/04/19 11:26 Temperature 98.0 F Pulse Rate 95 H Respiratory 13 Rate Blood Pressure 200/131 [Left] O2 Sat by Pulse 100 Oximetry ED Medical Decision Making - Lab Data Result diagrams: 09/04/19 13:39 09/04/19 13:39 - Medical Decision Making Labs 09/04/19 09/04/19 13:39 Unknown WBC 6.4 RBC 3.00 L Hgb 9.0 L Hct 27.3 L MCV 91 MCH 30 MCHC 33 RDW 16.3 H Plt Count 286 Lymph % (Auto) 9.7 L [place] % (Auto) 3.8 Eos % (Auto) 0.0 Baso % (Auto) 0.1 Lymph # 0.6 L [place] # 0.2 Eos # 0.0 Baso # 0.0 Seg Neutrophils % 86.4 H Seg Neutrophils # 5.5 Urine Color Straw Urine Turbidity Clear Urine pH 6.0 Ur Specific [place] 1.012 Urine Protein 30 mg/dl Urine Glucose (UA) >=500 Urine Ketones Tr Urine Blood Lg Urine Nitrite Neg Urine Bilirubin Neg Urine Urobilinogen < 2.0 Ur Leukocyte Esterase Neg Urine WBC (Auto) 3.0 Urine RBC (Auto) 5.0 U Epithel Cells (Auto) 2.0 Urine Bacteria (Auto) 1+ Hyaline Casts 1 Urine HCG, Qual Negative Vital Signs 09/04/19 11:26 Temperature 98.0 F Pulse Rate 95 H Respiratory 13 Rate Blood Pressure 200/131 [Left] O2 Sat by Pulse 100 Oximetry pt refused meds offered RN informed provider pt eloped from ER. Critical care attestation.: If time is entered above; I have spent that time in minutes in the direct care of this critically ill patient, excluding procedure time. ED Disposition Clinical Impression: Chronic back pain, Chronic anemia, Menstrual cramp, Hypertension, Diabetes mellitus Disposition: ELOPED Is pt being admited?: No Does the pt Need Aspirin: No Condition: Stable Instructions: Diabetes Mellitus Type 2 in Adults (ED), Hypertension (ED) Referrals: [facility] [Outside] - 3-5 Days Time of Disposition: 14:07
[2019-09-04] MEDS ORDERED: ONDANSETRON 4 MG/2 ML INJ IV ONE (12:30)
[2019-09-04] MEDS ORDERED: dexAMETHasone 20 MG/5 ML VIAL IV ONE (12:30)
[2019-09-04 13:06] LABS: Bacteria,Urine 1+ /HPF (Negative); Bilirubin,Urine NEG (Negative); Blood,Urine LG (Negative); Color,Urine Straw (Yellow); Hyaline Casts,Urine 1 /LPF; Urobilinogen,Urine < 2.0 mg/dL (<2.0)
[2019-09-04 13:07] LABS: HCG Qualitative,Urine Negative (Negative)
[2019-09-04] MEDS ORDERED: ACETAMINOPHEN 500 MG TAB PO ONE (13:44)
[2019-09-04 14:02] LABS: Basophils % (Auto) 0.1 % (0.0-1.8); Hematocrit 27.3 % (30.3-42.9); Lymphocytes # (Auto) 0.6 K/mm3 (1.2-5.4); Lymphocytes % (Auto) 9.7 % (13.4-35.0); Mean Corpuscular HGB Conc 33 % (30-34); Mean Corpuscular Volume 91 fl (79-97); Monocytes # (Auto) 0.2 K/mm3 (0.0-0.8); Monocytes % (Auto) 3.8 % (0.0-7.3); Platelet Count 286 K/mm3 (140-440); Red Cell Distribution Width 16.3 % (13.2-15.2)
[2019-09-04] MEDS ORDERED: cloNIDine 0.1 MG TAB PO ONE (14:08)
[2019-09-04 14:13] LABS: Calcium 9.4 mg/dL (8.4-10.2)
== END 2019-09-04 14:30 | disposition left against medical advice (07) ==
LOC: ED 11:14
DX: M54.9 Dorsalgia, unspecified (principal); G89.29 Other chronic pain; D64.9 Anemia, unspecified; I10 Essential (primary) hypertension; E11.9 Type 2 diabetes mellitus without complications; N94.6 Dysmenorrhea, unspecified; K21.9 Gastro-esophageal reflux disease without esophagitis; M19.90 Unspecified osteoarthritis, unspecified site; G43.909 Migraine, unspecified, not intractable, without status migrainosus; J45.909 Unspecified asthma, uncomplicated; Z88.5 Allergy status to narcotic agent; Z88.8 Allergy status to other drugs, medicaments and biological substances; Z79.4 Long term (current) use of insulin; Z79.899 Other long term (current) drug therapy; Z90.49 Acquired absence of other specified parts of digestive tract; E66.01 Morbid (severe) obesity due to excess calories; Z68.43 Body mass index [BMI] 50.0-59.9, adult
CPT/HCPCS: 36415; 80053; 81001; 81025; 85025; 96374; 96375; 99284; J1100; J2405

== ENCOUNTER 2019-10-02 05:24 | Emergency (ER) | payer MEDICAID ==
[2019-10-02 06:17] LABS: Basophils % (Auto) 0.3 % (0.0-1.8); Eosinophils % (Auto) 0.4 % (0.0-4.3); Hematocrit 32.9 % (30.3-42.9); Hemoglobin 10.8 gm/dl (10.1-14.3); Lymphocytes # (Auto) 1.5 K/mm3 (1.2-5.4); Lymphocytes % (Auto) 27.5 % (13.4-35.0); Mean Corpuscular HGB Conc 33 % (30-34); Mean Corpuscular Volume 92 fl (79-97); Monocytes # (Auto) 0.3 K/mm3 (0.0-0.8); Monocytes % (Auto) 5.1 % (0.0-7.3); Platelet Count 285 K/mm3 (140-440); Red Blood Count 3.56 M/mm3 (3.65-5.03); Red Cell Distribution Width 16.9 % (13.2-15.2)
[2019-10-02 06:34] LABS: Albumin 4.1 g/dL (3.9-5); Calcium 9.8 mg/dL (8.4-10.2)
[2019-10-02] MEDS ORDERED: FAMOTIDINE 20 MG TAB PO ONE (07:00)
[2019-10-02] MEDS ORDERED: METOCLOPRAMIDE 10 MG TAB PO ONE (07:00)
[2019-10-02] MEDS ORDERED: hydrALAZINE 25 MG TAB PO ONE (07:00)
[2019-10-02] MEDS ORDERED: ACETAMINOPHEN 325 MG/10.15 ML ORAL LIQD UNIT DOSE PO ONE (07:01)
--- NOTE | 2019-10-02 07:02 | Emergency Department Report ---
ED General Adult HPI - General Chief complaint: Back Pain/Injury Stated complaint: ABD/BACK PAIN Time Seen by Provider: 10/02/19 06:07 Source: patient, EMS ( EMS documentation not available at time of chart dictation ), RN notes reviewed, old records reviewed Mode of arrival: Stretcher Limitations: No Limitations - History of Present Illness Initial comments: The patient is a 43-year-old female. I am familiar with this patient. Her past history includes gastroparesis, morbid obesity, renal insufficiency, narcotic dependence, chronic pain. Patient has had multiple visits to this department for chronic back pain and abdominal pain. During the history and physical, I am escorted by ER experimental technician Chata The patient presents to the ER today with her typical complaint of back pain and abdominal pain. It is aching. It increases with palpation. It decreases with rest. There is no vomiting. The patient denies irritative and obstructive u rinary symptoms. She makes no complaints of extremity weakness and numbness. -: Gradual Location: back, abdomen Severity scale (0 -10): 10 Quality: other Consistency: other Improves with: other Worsens with: other Associated Symptoms: other - Related Data Home Medications Medication Instructions Recorded Confirmed Last Taken Insulin NPH Hum/Reg Insulin Hm 30 - 40 unit SQ QAMDIAB 10/05/15 01/08/19 10/09/18 20:00 [HumuLIN 70-30 Vial] Amitriptyline [Elavil] 50 mg PO QHS 01/08/19 01/08/19 Unknown Famotidine [Pepcid] 20 mg PO BID 01/08/19 01/08/19 Unknown Promethazine [Phenergan] 25 mg PO Q8HR PRN 01/08/19 01/08/19 Unknown amLODIPine 10 mg PO DAILY 01/08/19 01/08/19 Unknown Previous Rx's Medication Instructions Recorded Last Taken Type Ferrous Gluconate [Fergon 325 MG 325 mg PO QDAY #30 tablet 01/11/19 Unknown Rx tab] Folic Acid [Folvite] 1 mg PO QDAY #30 tablet 01/11/19 Unknown Rx Gabapentin 300 mg PO DAILY #30 01/11/19 Unknown Rx Famotidine [Pepcid] 40 mg PO QHS #10 tablet 02/27/19 Unknown Rx Pantoprazole [Protonix] 40 mg PO QDAY #30 tablet 02/27/19 Unknown Rx Bacitracin 1 applic TD BID #3.5 oint...g. 04/23/19 Unknown Rx oxyCODONE /ACETAMINOPHEN [Percocet 1 tab PO Q6HR PRN #10 tablet 07/05/19 Unknown Rx 5/325] Acetaminophen [Non-Aspirin Extra 500 mg PO Q6HR PRN #30 tablet 10/02/19 Unknown Rx Strength] Anita Root [Anita] 250 mg PO QID PRN #30 capsule 10/02/19 Unknown Rx Metoclopramide [Reglan] 10 mg PO QID PRN #30 tablet 10/02/19 Unknown Rx Allergies Allergy/AdvReac Type Severity Reaction Status Date / Time ketorolac tromethamine Allergy Unknown Verified 07/05/19 10:47 [From Toradol] meperidine HCl [From Demerol] Allergy Shortness Verified 07/05/19 10:47 of Breath ED Review of Systems ROS: Stated complaint: ABD/BACK PAIN Other details as noted in HPI Constitutional: denies: diaphoresis Eyes: denies: eye discharge ENT: denies: congestion Respiratory: denies: wheezing Cardiovascular: denies: syncope Gastrointestinal: abdominal pain Genitourinary: denies: dysuria Musculoskeletal: back pain Hematological/Lymphatic: denies: easy bleeding ED Past Medical Hx - Past Medical History Previous Medical History?: Yes Hx Hypertension: Yes (Hospitalized in hypertensive crisis 08/28/18) Hx CVA: No Hx Congestive Heart Failure: No Hx Diabetes: Yes Hx GERD: Yes Hx Renal Disease: Yes Hx Arthritis: Yes (All joints) Hx Headaches / Migraines: Yes (Migraines) Hx Psychiatric Treatment: No Hx Asthma: Yes (no recent albuterol use) Hx COPD: No Hx HIV: No Additional medical history: spina bifida, Gastroparesis. morbid obesity, home oxygen @ 3LPM nasal cannula - Surgical History Past Surgical History?: Yes Hx Cholecystectomy: Yes Hx Appendectomy: Yes Hx Breast Surgery: Yes (breast reduction) Additional Surgical History: Right chest port-discontinued - Social History Smoking Status: Never Smoker Substance Use Type: None - Medications Home Medications: Home Medications Medication Instructions Recorded Confirmed Last Taken Type Insulin NPH Hum/Reg Insulin Hm 30 - 40 unit SQ QAMDIAB 10/05/15 01/08/19 10/09/18 20:00 History [HumuLIN 70-30 Vial] Amitriptyline [Elavil] 50 mg PO QHS 01/08/19 01/08/19 Unknown History Famotidine [Pepcid] 20 mg PO BID 01/08/19 01/08/19 Unknown History Promethazine [Phenergan] 25 mg PO Q8HR PRN 01/08/19 01/08/19 Unknown History amLODIPine 10 mg PO DAILY 01/08/19 01/08/19 Unknown History Ferrous Gluconate [Fergon 325 MG 325 mg PO QDAY #30 tablet 01/11/19 Unknown Rx tab] Folic Acid [Folvite] 1 mg PO QDAY #30 tablet 01/11/19 Unknown Rx Gabapentin 300 mg PO DAILY #30 01/11/19 01/08/19 Unknown Rx Famotidine [Pepcid] 40 mg PO QHS #10 tablet 02/27/19 Unknown Rx Pantoprazole [Protonix] 40 mg PO QDAY #30 tablet 02/27/19 Unknown Rx Bacitracin 1 applic TD BID #3.5 oint...g. 04/23/19 Unknown Rx oxyCODONE /ACETAMINOPHEN [Percocet 1 tab PO Q6HR PRN #10 tablet 07/05/19 Unknown Rx 5/325] Acetaminophen [Non-Aspirin Extra 500 mg PO Q6HR PRN #30 tablet 10/02/19 Unknown Rx Strength] Anita Root [Anita] 250 mg PO QID PRN #30 capsule 10/02/19 Unknown Rx Metoclopramide [Reglan] 10 mg PO QID PRN #30 tablet 10/02/19 Unknown Rx ED Physical Exam - General Limitations: No Limitations General appearance: alert, in no apparent distress, obese - Head Head exam: Present: atraumatic, normocephalic - Eye Eye exam: Present: normal appearance, EOMI. Absent: nystagmus - ENT ENT exam: Present: normal exam, normal orophraynx, mucous membranes moist, normal external ear exam - Neck Neck exam: Present: normal inspection, full ROM. Absent: tenderness, meningismus - Respiratory Respiratory exam: Present: normal lung sounds bilaterally. Absent: respiratory distress - Cardiovascular Cardiovascular Exam: Present: regular rate, normal rhythm, normal heart sounds. Absent: bradycardia, tachycardia, irregular rhythm, systolic murmur, diastolic murmur, rubs, gallop - GI/Abdominal GI/Abdominal exam: Present: soft. Absent: distended, tenderness, guarding, rebound, rigid, pulsatile mass - Extremities Exam Extremities exam: Present: normal inspection, full ROM, other (2+ pulses noted in the bilateral upper and lower extremities. There is no palpable cord. negative Homans sign. Muscular compartments are soft. The pelvis is stable.). Absent: pedal edema, joint swelling, calf tenderness - Back Exam Back exam: Present: normal inspection, paraspinal tenderness. Absent: tenderness, CVA tenderness (R), CVA tenderness (L), vertebral tenderness - Neurological Exam Neurological exam: Present: alert, normal gait, other (there is no facial droop. The tongue is midline. The extraocular movements are intact bilaterally. Speaking in full sentences. Minimal elevation of the base of the tongue. There is 5 out of 5 strength in the bilateral upper and lower extremities, and sensation is intact to light touch in the bilateral upper and lower extremities. Appropriate insight.) - Psychiatric Psychiatric exam: Present: flat affect - Skin Skin exam: Present: warm, dry, intact, normal color. Absent: rash ED Course Vital Signs 10/02/19 10/02/19 05:40 07:31 Temperature 98.9 F 98.6 F Pulse Rate 116 H 97 H Respiratory 14 18 Rate Blood Pressure 155/107 Blood Pressure 155/107 200/120 [Left] O2 Sat by Pulse 100 98 Oximetry ED Medical Decision Making - Lab Data Result diagrams: 10/02/19 05:59 10/02/19 05:59 Vital Signs 10/02/19 10/02/19 05:40 07:31 Temperature 98.9 F 98.6 F Pulse Rate 116 H 97 H Respiratory 14 18 Rate Blood Pressure 155/107 Blood Pressure 155/107 200/120 [Left] O2 Sat by Pulse 100 98 Oximetry Lab Results 10/02/19 10/02/19 10/02/19 Range/Units 05:59 05:59 07:44 WBC 5.4 (4.5-11.0) K/mm3 RBC 3.56 L (3.65-5.03) M/mm3 Hgb 10.8 (10.1-14.3) gm/dl Hct 32.9 (30.3-42.9) % MCV 92 (79-97) fl MCH 30 (28-32) pg MCHC 33 (30-34) % RDW 16.9 H (13.2-15.2) % Plt Count 285 (140-440) K/mm3 Lymph % (Auto) 27.5 (13.4-35.0) % [place] % (Auto) 5.1 (0.0-7.3) % Eos % (Auto) 0.4 (0.0-4.3) % Baso % (Auto) 0.3 (0.0-1.8) % Lymph # 1.5 (1.2-5.4) K/mm3 [place] # 0.3 (0.0-0.8) K/mm3 Eos # 0.0 (0.0-0.4) K/mm3 Baso # 0.0 (0.0-0.1) K/mm3 Seg Neutrophils % 66.7 (40.0-70.0) % Seg Neutrophils # 3.6 (1.8-7.7) K/mm3 Sodium 139 (137-145) mmol/L Potassium 3.8 (3.6-5.0) mmol/L Chloride 103.7 (98-107) mmol/L Carbon Dioxide 22 (22-30) mmol/L Anion Gap 17 mmol/L BUN 8 (7-17) mg/dL Creatinine 1.2 (0.7-1.2) mg/dL Estimated GFR 60 ml/min BUN/Creatinine Ratio 7 % Glucose 212 H (65-100) mg/dL Calcium 9.8 (8.4-10.2) mg/dL Total Bilirubin 0.40 (0.1-1.2) mg/dL AST 8 (5-40) units/L ALT 9 (7-56) units/L Alkaline Phosphatase 160 H (35-129) units/L Total Protein 8.0 (6.3-8.2) g/dL Albumin 4.1 (3.9-5) g/dL Albumin/Globulin Ratio 1.1 % HCG, Qual Negative (Negative) - EKG Data -: EKG Interpreted by Me EKG shows normal: sinus rhythm Rate: normal - EKG Data 10/02/19 08:58 The EKG today shows a sinus rhythm, 99 bpm, there is a left axis deviation, th ere is a left anterior fascicular block, the QTC is prolonged, the EKG is abnormal, it appears to be unchanged from prior EKG from 2018 - Medical Decision Making Differential diagnosis, including but not limited to: Gastroparesis, narcotic dependence, spina bifida, DJD, arthritis, chronic pain, chronic elevated blood pressure Assessment and plan: 43-year-old female with acute exacerbation of chronic pain, chronic hypertension. The patient is afebrile with otherwise reassuring vital signs. On multiple evaluations is resting comfortably in her stretcher, and in no acute distress. She is unfortunately allergic/intolerant of NSAIDs and Toradol. Patient provided nonnarcotic pain medication. Please reference the [employer] clinical policy on hypertension which is not acutely symptomatic. Do not suspect UTIs the patient has not endorsed any urinary symptoms. She declined to provide a urine sample. During the patient's history and physical, well distracted, there is no abdominal rebound, guarding, tenderness. Patient examined, while distracted, and carried on a complete lucid conversation while I examined her abdomen. Her exam today somewhat to prior examinations. Critical care attestation.: If time is entered above; I have spent that time in minutes in the direct care of this critically ill patient, excluding procedure time. ED Disposition Clinical Impression: Chronic back pain, Morbid obesity, Chronic abdominal pain, HTN (hypertension) Disposition: - TO HOME OR SELFCARE Is pt being admited?: No Does the pt Need Aspirin: No Condition: Stable Instructions: Hypertension (ED) Additional Instructions: Rest, avoid heavy lifting and strenuous physical activities. Weightbearing as tolerated. Patient should continue current outpatient medications. Patient may take [id number] Tylenol as needed for pain. Patient may take the Reglan medication is needed for nausea and vomiting. Patient should follow-up with her primary care doctor within the next 7-10 days. Please note that the patient was found to have hypertension and elevated blood pressure today. This should be followed up by primary care doctor within the next 7-10 days. Long-term complications of hypertension and elevated blood pressure includes stroke, heart attack, disability, paralysis, loss of quality of life. Recommend patient return to the emergency room right away with new, worsening or different symptoms, or symptoms not present on the initial emergency room evaluation. Referrals: [facility] [Provider Group] - 3-[address] [facility] [Provider Group] - 3-5 Days
[2019-10-02 07:33] VITALS: BP 200/120
== END 2019-10-02 09:00 | disposition home or self-care (01) ==
LOC: ED 05:24
DX: M54.9 Dorsalgia, unspecified (principal); G89.29 Other chronic pain; I10 Essential (primary) hypertension; G43.909 Migraine, unspecified, not intractable, without status migrainosus; E11.9 Type 2 diabetes mellitus without complications; E66.01 Morbid (severe) obesity due to excess calories; Z68.42 Body mass index [BMI] 45.0-49.9, adult; Z90.49 Acquired absence of other specified parts of digestive tract; Z79.899 Other long term (current) drug therapy; Z88.8 Allergy status to other drugs, medicaments and biological substances
CPT/HCPCS: 36415; 80053; 84703; 85025; 93005; 93010; 99284

== ENCOUNTER 2019-11-14 06:20 | Observation (INO) | payer MEDICAID ==
[2019-11-14] MEDS ORDERED: diphenhydrAMINE 50 MG/ML VIAL IV ONE (07:44)
[2019-11-14] MEDS ORDERED: ONDANSETRON 4 MG/2 ML INJ IV ONE (07:44)
[2019-11-14] MEDS ORDERED: HYDROmorphone 1 MG/1 ML INJ IV ONE (07:44)
--- NOTE | 2019-11-14 07:52 | Emergency Department Report ---
ED General Adult HPI - General Chief complaint: Abdominal Pain Stated complaint: EMESIS/BACK PAIN Time Seen by Provider: 11/14/19 07:34 Source: patient, EMS Mode of arrival: Stretcher Limitations: No Limitations - History of Present Illness Initial comments: This is a 43-year-old female who appears older than her stated age and is well known to this facility. She has history of opioid dependency, chronic back pain, chronic abdominal pain, diabetic gastroparesis and hypertension. She states that she has not been able to take her medicine for the last 3 days due to vomiting. She states that she moved her bowels yesterday and that was normal. She's had no signs of GI bleeding in either upper or lower. She denies fever or chills. She has not notified her primary care physician of the difficulty she has had for the past 3 days for unknown reason. She presents to the emergency department hypertensive and somewhat writhing. She is giving torres ited historical information. To a certain degree this is a typical presentation for her. Her glucose was found to be 311 on spot testing. -: Gradual, days(s) Location: back (lower back), abdomen (epigastric) Radiation: non-radiation Quality: aching Consistency: constant Improves with: none Worsens with: none Associated Symptoms: denies other symptoms, nausea/vomiting Treatments Prior to Arrival: none - Related Data Home Medications Medication Instructions Recorded Confirmed Last Taken Insulin NPH Hum/Reg Insulin Hm 30 - 40 unit SQ QAMDIAB 10/05/15 01/08/19 10/09/18 20:00 [HumuLIN 70-30 Vial] Amitriptyline [Elavil] 50 mg PO QHS 01/08/19 01/08/19 Unknown Famotidine [Pepcid] 20 mg PO BID 01/08/19 01/08/19 Unknown Promethazine [Phenergan] 25 mg PO Q8HR PRN 01/08/19 01/08/19 Unknown amLODIPine 10 mg PO DAILY 01/08/19 01/08/19 Unknown Previous Rx's Medication Instructions Recorded Last Taken Type Ferrous Gluconate [Fergon 325 MG 325 mg PO QDAY #30 tablet 01/11/19 Unknown Rx tab] Folic Acid [Folvite] 1 mg PO QDAY #30 tablet 01/11/19 Unknown Rx Gabapentin 300 mg PO DAILY #30 01/11/19 Unknown Rx Famotidine [Pepcid] 40 mg PO QHS #10 tablet 02/27/19 Unknown Rx Pantoprazole [Protonix] 40 mg PO QDAY #30 tablet 02/27/19 Unknown Rx Bacitracin 1 applic TD BID #3.5 oint...g. 04/23/19 Unknown Rx oxyCODONE /ACETAMINOPHEN [Percocet 1 tab PO Q6HR PRN #10 tablet 07/05/19 Unknown Rx 5/325] Acetaminophen [Non-Aspirin Extra 500 mg PO Q6HR PRN #30 tablet 10/02/19 Unknown Rx Strength] Anita Root [Anita] 250 mg PO QID PRN #30 capsule 10/02/19 Unknown Rx Metoclopramide [Reglan] 10 mg PO QID PRN #30 tablet 10/02/19 Unknown Rx Allergies Allergy/AdvReac Type Severity Reaction Status Date / Time ketorolac tromethamine Allergy Unknown Verified 07/05/19 10:47 [From Toradol] meperidine HCl [From Demerol] Allergy Shortness Verified 07/05/19 10:47 of Breath ED Review of Systems ROS: Stated complaint: EMESIS/BACK PAIN Other details as noted in HPI Constitutional: denies: chills, fever Eyes: denies: eye pain, eye discharge, vision change ENT: denies: ear pain, throat pain Respiratory: denies: cough, shortness of breath, wheezing Cardiovascular: denies: chest pain, palpitations Endocrine: no symptoms reported Gastrointestinal: abdominal pain, nausea, vomiting. denies: diarrhea, con stipation, hematemesis, melena, hematochezia Genitourinary: denies: urgency, dysuria, discharge Musculoskeletal: back pain (nonradiating). denies: joint swelling, arthralgia Skin: denies: rash, lesions Neurological: denies: headache, weakness, paresthesias Psychiatric: denies: anxiety, depression Hematological/Lymphatic: denies: easy bleeding, easy bruising ED Past Medical Hx - Past Medical History Previous Medical History?: Yes Hx Hypertension: Yes (Hospitalized in hypertensive crisis 08/28/18) Hx CVA: No Hx Congestive Heart Failure: No Hx Diabetes: Yes Hx GERD: Yes Hx Renal Disease: Yes Hx Arthritis: Yes (All joints) Hx Headaches / Migraines: Yes (Migraines) Hx Psychiatric Treatment: No Hx Asthma: Yes (no recent albuterol use) Hx COPD: No Hx HIV: No Additional medical history: spina bifida, Gastroparesis. morbid obesity, home oxygen @ 3LPM nasal cannula - Surgical History Hx Cholecystectomy: Yes Hx Appendectomy: Yes Hx Breast Surgery: Yes (breast reduction) Additional Surgical History: Right chest port-discontinued - Social History Smoking Status: Never Smoker Substance Use Type: None - Medications Home Medications: Home Medications Medication Instructions Recorded Confirmed Last Taken Type Insulin NPH Hum/Reg Insulin Hm 30 - 40 unit SQ QAMDIAB 10/05/15 01/08/19 10/09/18 20:00 History [HumuLIN 70-30 Vial] Amitriptyline [Elavil] 50 mg PO QHS 01/08/19 01/08/19 Unknown History Famotidine [Pepcid] 20 mg PO BID 01/08/19 01/08/19 Unknown History Promethazine [Phenergan] 25 mg PO Q8HR PRN 01/08/19 01/08/19 Unknown History amLODIPine 10 mg PO DAILY 01/08/19 01/08/19 Unknown History Ferrous Gluconate [Fergon 325 MG 325 mg PO QDAY #30 tablet 01/11/19 Unknown Rx tab] Folic Acid [Folvite] 1 mg PO QDAY #30 tablet 01/11/19 Unknown Rx Gabapentin 300 mg PO DAILY #30 01/11/19 01/08/19 Unknown Rx Famotidine [Pepcid] 40 mg PO QHS #10 tablet 02/27/19 Unknown Rx Pantoprazole [Protonix] 40 mg PO QDAY #30 tablet 02/27/19 Unknown Rx Bacitracin 1 applic TD BID #3.5 oint...g. 04/23/19 Unknown Rx oxyCODONE /ACETAMINOPHEN [Percocet 1 tab PO Q6HR PRN #10 tablet 07/05/19 Unknown Rx 5/325] Acetaminophen [Non-Aspirin Extra 500 mg PO Q6HR PRN #30 tablet 10/02/19 Unknown Rx Strength] Anita Root [Anita] 250 mg PO QID PRN #30 capsule 10/02/19 Unknown Rx Metoclopramide [Reglan] 10 mg PO QID PRN #30 tablet 10/02/19 Unknown Rx ED Physical Exam - General Limitations: No Limitations, Physical Limitation, Other (patient is strangely arching her back and extending her legs in a writhing position that would not appear to to improve her comfort level ) General appearance: obese - Head Head exam: Present: atraumatic, normocephalic - Eye Eye exam: Present: normal appearance. Absent: scleral icterus - ENT ENT exam: Present: mucous membranes moist - Neck Neck exam: Present: normal inspection - Respiratory Respiratory exam: Present: normal lung sounds bilaterally. Absent: respiratory distress - Cardiovascular Cardiovascular Exam: Present: regular rate, normal rhythm. Absent: systolic murmur, diastolic murmur, rubs, gallop - GI/Abdominal GI/Abdominal exam: Present: soft, normal bowel sounds. Absent: distended, tenderness, guarding, rebound, rigid - Extremities Exam Extremities exam: Present: normal inspection - Back Exam Back exam: Present: normal inspection - Neurological Exam Neurological exam: Present: alert, oriented X3, CN II-XII intact. Absent: motor sensory deficit - Psychiatric Psychiatric exam: Present: anxious, flat affect - Skin Skin exam: Present: warm, dry, intact, normal color. Absent: rash ED Course Vital Signs 11/14/19 11/14/19 11/14/19 06:41 06:42 06:46 Temperature 98.9 F Pulse Rate 111 H 112 H 114 H Respiratory 17 18 12 Rate Blood Pressure 175/129 175/129 Blood Pressure [Left] O2 Sat by Pulse 99 99 99 Oximetry 11/14/19 11/14/19 11/14/19 07:00 07:16 07:30 Temperature Pulse Rate 103 H 111 H 108 H Respiratory 22 14 17 Rate Blood Pressure 198/96 174/113 174/113 Blood Pressure [Left] O2 Sat by Pulse 98 100 99 Oximetry 11/14/19 11/14/19 11/14/19 07:46 07:59 08:00 Temperature Pulse Rate 109 H 113 H Respiratory 19 20 13 Rate Blood Pressure 174/113 207/180 Blood Pressure [Left] O2 Sat by Pulse 100 Oximetry 11/14/19 11/14/19 11/14/19 08:16 08:29 08:30 Temperature Pulse Rate 104 H 102 H Respiratory 11 L 18 14 Rate Blood Pressure 207/180 207/180 Blood Pressure [Left] O2 Sat by Pulse 97 99 Oximetry 11/14/19 11/14/19 11/14/19 08:46 08:48 09:00 Temperature Pulse Rate 84 103 H 79 Respiratory 11 L 14 Rate Blood Pressure 207/180 207/113 173/107 Blood Pressure [Left] O2 Sat by Pulse 95 95 Oximetry 11/14/19 11/14/19 11/14/19 09:16 09:30 09:46 Temperature Pulse Rate 83 81 84 Respiratory 10 L 11 L 16 Rate Blood Pressure 173/107 188/108 188/108 Blood Pressure [Left] O2 Sat by Pulse 96 98 95 Oximetry 11/14/19 11/14/19 11/14/19 10:00 10:16 10:30 Temperature Pulse Rate 85 86 85 Respiratory 18 14 14 Rate Blood Pressure 199/131 199/131 199/131 Blood Pressure [Left] O2 Sat by Pulse 98 98 100 Oximetry 11/14/19 11/14/19 11/14/19 10:46 11:00 11:15 Temperature Pulse Rate 90 90 92 H Respiratory 15 10 L 18 Rate Blood Pressure 188/108 187/113 Blood Pressure 159/79 [Left] O2 Sat by Pulse 99 88 99 Oximetry - Reevaluation(s) Reevaluation #1: Patient given analgesia and blood pressure medication. She was treated empirically with cefepime considering her elevated lactic acid level. She was given insulin for her hyperglycemia associated with hyperkalemia. She was referred to Dr. Quesada of the hospitalist staff for admission, further care and evaluation. 11/14/19 11:15 ED Medical Decision Making - Lab Data Result diagrams: 11/14/19 08:10 11/14/19 08:10 Laboratory Results - last 24 hr 11/14/19 11/14/19 11/14/19 07:55 08:10 08:10 RBC 3.38 L Hgb 10.3 Hct 31.4 MCV 93 MCH 30 MCHC 33 RDW 15.9 H Lymph % (Auto) [employer] [place] % (Auto) [employer] In[employer] Eos % (Auto) [employer] Instructor Baso % (Auto) [employer] Instructor Lymph # [employer] Instructor [place] # [employer]line [employer] Instructor Eos # [employer]line Pilot [employer] Instructor Baso # [employer] Instructor Seg Neutrophils % [employer] Instructor Seg Neutrophils # [employer]line [employer] Instructor PT 13.5 INR 1.02 APTT 32.0 VBG pH Sodium Chloride Carbon Dioxide BUN Creatinine Estimated GFR BUN/Creatinine Ratio Glucose POC Glucose 311 H Ketones Quantitative Lactic Acid Calcium Magnesium Total Bilirubin Direct Bilirubin Indirect Bilirubin Alkaline Phosphatase Troponin T NT-Pro-B Natriuret Pep Total Protein Albumin Albumin/Globulin Ratio Lipase 11/14/19 11/14/19 11/14/19 08:10 08:10 08:10 RBC Hgb Hct MCV MCH MCHC RDW Lymph % (Auto) [place] % (Auto) Eos % (Auto) Baso % (Auto) Lymph # [place] # Eos # Baso # Seg Neutrophils % Seg Neutrophils # PT INR APTT VBG pH Sodium 138 Chloride 100.3 Carbon Dioxide 18 L BUN 23 H Creatinine 1.5 H Estimated GFR 46 BUN/Creatinine Ratio 15 Glucose 322 H POC Glucose Ketones Quantitative Lactic Acid 2.90 H* Calcium 10.1 Magnesium 2.30 Total Bilirubin 0.40 Direct Bilirubin < 0.2 Indirect Bilirubin 0.2 Alkaline Phosphatase 139 H Troponin T < 0.010 NT-Pro-B Natriuret Pep 470.5 H Total Protein 9.0 H Albumin 4.2 Albumin/Globulin Ratio 0.9 Lipase 28 11/14/19 11/14/19 08:10 08:10 RBC Hgb Hct MCV MCH MCHC RDW Lymph % (Auto) [place] % (Auto) Eos % (Auto) Baso % (Auto) Lymph # [place] # Eos # Baso # Seg Neutrophils % Seg Neutrophils # PT INR APTT VBG pH 7.429 H Sodium Chloride Carbon Dioxide BUN Creatinine Estimated GFR BUN/Creatinine Ratio Glucose POC Glucose Ketones Quantitative Negative Lactic Acid Calcium Magnesium Total Bilirubin Direct Bilirubin Indirect Bilirubin Alkaline Phosphatase Troponin T NT-Pro-B Natriuret Pep Total Protein Albumin Albumin/Globulin Ratio Lipase - EKG Data -: EKG Interpreted by Me EKG shows normal: sinus rhythm, axis, intervals, QRS complexes, ST-T waves Rate: normal - EKG Data Interpretation: no acute changes - Radiology Data Radiology results: pending (CT of the abdomen and pelvis is pending) IMPRESSION: 1. Negative for obstruction, constipation or localized inflammation. 2. Moderate fat-containing ventral hernia. 3. Mild dilatation/thickening of the distal esophagus unchanged. Critical care attestation.: If time is entered above; I have spent that time in minutes in the direct care of this critically ill patient, excluding procedure time. ED Disposition Clinical Impression: Diabetic gastroparesis, Uncontrolled hypertension, Acute kidney injury, Hyperka lemia, Elevated lactic acid level Abdominal pain Qualifiers: Abdominal location: generalized Qualified Code(s): R10.84 - Generalized abdominal pain Disposition: OP ADMIT IP TO THIS HOSP Is pt being admited?: Yes Does the pt Need Aspirin: Yes Condition: Stable Time of Disposition: 12:00
[2019-11-14 09:01] LABS: INR 1.02 (0.87-1.13)
[2019-11-14 09:02] LABS: Hematocrit 31.4 % (30.3-42.9); Hemoglobin 10.3 gm/dl (10.1-14.3); Mean Corpuscular HGB Conc 33 % (30-34); Mean Corpuscular Volume 93 fl (79-97); Red Blood Count 3.38 M/mm3 (3.65-5.03); Red Cell Distribution Width 15.9 % (13.2-15.2)
--- NOTE | 2019-11-14 09:03 | XRay Report ---
CHEST 1 VIEW INDICATION: hypertension. Back pain and abdominal pain for 2 days, nausea and vomiting COMPARISON: None FINDINGS: Support devices: None. Heart: Within normal limits. Lungs/Pleura: No acute air space or interstitial disease. Additional findings: None. IMPRESSION: Normal AP chest Signer Name: Scottie Holman Jr, MD Signed: 11/14/2019 8:58 AM Workstation Name: [id number]
[2019-11-14 09:09] LABS: Albumin 4.2 g/dL (3.9-5); BUN/Creatinine Ratio 15; Blood Urea Nitrogen 23 mg/dL (7-17); Calcium 10.1 mg/dL (8.4-10.2); Hemolysis Index 135
[2019-11-14 09:14] LABS: Bilirubin,Direct < 0.2 mg/dL (0-0.2)
[2019-11-14] MEDS ORDERED: CEFEPIME/NS 1 GM/100 ML 1 GM/100 ML BAG IV ONE (09:19)
[2019-11-14 09:46] LABS: Basophils % (Manual) 0 % (0.0-1.8); Eosinophils % (Manual) 0 % (0.0-4.3); Total Cells Counted 100
[2019-11-14 09:47] LABS: Alanine Aminotransferase 13 units/L (7-56); Platelet Estimate Consistent w Auto; RBC Morphology Normal
[2019-11-14 09:57] LABS: Platelet Count 362 K/mm3 (140-440)
[2019-11-14] MEDS ORDERED: INSULIN REGULAR, HUMAN 100 UNITS/1 ML IV ONE (10:12)
[2019-11-14] MEDS ORDERED: SODIUM CHLORIDE 0.9% 1000 ML 1,000 ML IV ONE (10:14)
--- NOTE | 2019-11-14 10:14 | History and Physical Report ---
History of Present Illness Chief complaint: I am hurting, my stomach hurts History of present illness: 43 YO Female with DM, HTN, Resolved ESRD not undergoing dialysis , [place], CHF, Spina bifida, chronic abdominal pain not otherwise specified chronic back pain and opiod dependence, ANEMIA , Gastroparesis, chronic respiratory failure on 3 L home oxygen via nasal cannula presents to ED for evaluation. Pt states that she has experienced nausea and multiple episodes of vomiting over the past 3 days with persistent symptoms over the same timeframe. Pt states that she has been unable to take her medication by mouth due to her nausea. Patient reports pain episodes are intermittent with increased frequency over the past 1 day. Pt states that pain is 3-4/10, not worsened with movement, not relieved with rest. EMS notified and upon arrival the patient was found to be in distress and transported to [facility] for further care and evaluation. Patient seen and evaluated in the emergency department. Lab and imaging studies reviewed. Patient found to have acute kidney injury, metabolic acidosis, as well as gastroparesis. Patient admitted to medical floor for medical stabilization due to increased risk of decompensation. Nephrology team consulted in ED. Patient treated with IV fluid resuscitation therapy and pain management. Pt denies fever, chills, Palpitations, hemoptysis, NVD, syncope, trauma, BRBPR. Prior admission on 01/08/2019 reviewed. All listed medication reconciled at time of admission. Past History Past Medical History: arthritis, diabetes, hypertension, other (See HPI) Past Surgical History: appendectomy, cholecystectomy, Other (Breast surgery, chest port) Social history: , lives with family. denies: smoking, alcohol abuse, prescription drug abuse Family history: diabetes, hypertension Medications and Allergies Allergies Allergy/AdvReac Type Severity Reaction Status Date / Time ketorolac tromethamine Allergy Unknown Verified 07/05/19 10:47 [From Toradol] meperidine HCl [From Demerol] Allergy Shortness Verified 07/05/19 10:47 of Breath Home Medications Medication Instructions Recorded Confirmed Last Taken Type Insulin NPH Hum/Reg Insulin Hm 30 - 40 unit SQ QAMDIAB 10/05/15 11/14/19 10/09/18 20:00 History [HumuLIN 70-30 Vial] Amitriptyline [Elavil] 50 mg PO QHS 01/08/19 11/14/19 Unknown History Famotidine [Pepcid] 20 mg PO BID 01/08/19 01/08/19 Unknown History Promethazine [Phenergan] 25 mg PO Q8HR PRN 01/08/19 11/14/19 Unknown History amLODIPine 10 mg PO DAILY 01/08/19 11/14/19 Unknown History Ferrous Gluconate [Fergon 325 MG 325 mg PO QDAY #30 tablet 01/11/19 11/14/19 Unknown Rx tab] Folic Acid [Folvite] 1 mg PO QDAY #30 tablet 01/11/19 11/14/19 Unknown Rx Gabapentin 300 mg PO DAILY #30 01/11/19 11/14/19 Unknown Rx Famotidine [Pepcid] 40 mg PO QHS #10 tablet 02/27/19 11/14/19 Unknown Rx Pantoprazole [Protonix] 40 mg PO QDAY #30 tablet 02/27/19 11/14/19 Unknown Rx Bacitracin 1 applic TD BID #3.5 oint...g. 04/23/19 Unknown Rx oxyCODONE /ACETAMINOPHEN [Percocet 1 tab PO Q6HR PRN #10 tablet 07/05/19 11/14/19 Unknown Rx 5/325] Acetaminophen [Non-Aspirin Extra 500 mg PO Q6HR PRN #30 tablet 10/02/19 11/14/19 Unknown Rx Strength] Anita Root [Anita] 250 mg PO QID PRN #30 capsule 10/02/19 11/14/19 Unknown Rx Metoclopramide [Reglan] 10 mg PO QID PRN #30 tablet 10/02/19 11/14/19 Unknown Rx Review of Systems Constitutional: no weight loss, no weight gain, no fever, no chills Ears, nose, mouth and throat: no ear pain, no ear discharge, no tinnitis, no nose pain, no nasal congestion Breasts: no change in shape, no swelling, no mass Cardiovascular: no chest pain, no orthopnea, no rapid/irregular heart beat, no syncope, no lightheadedness Respiratory: no cough, no cough with sputum, no excessive sputum, no hemoptysis, no shortness of breath Gastrointestinal: abdominal pain, nausea, vomiting, no constipation, no hemateme sis, no coffee ground emesis, no BRBPR, no melena Genitourinary Female: no pelvic pain, no flank pain, no menorrhagia, no dysuria, no urinary frequency, no urgency Rectal: no pain, no incontinence, no bleeding Musculoskeletal: no neck stiffness, no neck pain, no arm numbness/tingling, no low back pain, no redness of joints Integumentary: no rash, no pruritis, no redness, no sores, no wounds Neurological: no head injury, no transient paralysis, no paralysis, no weakness, no numbness, no seizures, no syncope, no tremors Psychiatric: no anxiety, no memory loss, no sleep disturbances, no insomnia, no hypersomnia, no change in libido, no suicidal ideation Endocrine: no cold intolerance, no heat intolerance, no polyphagia, no excessive thirst, no nocturia Hematologic/Lymphatic: no easy bruising, no easy bleeding, no lymphadenopathy, no lymphedema Allergic/Immunologic: no urticaria, no allergic rhinitis, no wheezing, no persistent infections, no anaphylaxis, no angioedema Exam - Constitutional Vitals: Temp Pulse Resp BP Pulse Ox 98.9 F 79 14 173/107 95 11/14/19 06:42 11/14/19 09:00 11/14/19 09:00 11/14/19 09:00 11/14/19 09:00 General appearance: Present: mild distress, obese - EENT Eyes: Present: PERRL ENT: hearing intact, clear oral mucosa - Neck Neck: Present: supple, normal ROM - Respiratory Respiratory effort: normal Respiratory: bilateral: CTA - Cardiovascular Heart Sounds: Present: S1 & S2. Absent: rub, click - Extremities Extremities: pulses symmetrical, No edema Peripheral Pulses: within normal limits - Abdominal General gastrointestinal: Present: soft, non-tender, non-distended, normal bowel sounds Female genitourinary: Present: normal - Integumentary Integumentary: Present: clear, warm, dry - Musculoskeletal Musculoskeletal: generalized weakness - Psychiatric Psychiatric: appropriate mood/affect, intact judgment & insight - Neurologic Neurologic: CNII-XII intact, moves all extremities, no gait normal Results - Labs CBC & Chem 7: 11/14/19 08:10 11/14/19 08:10 Labs: Abnormal lab results 11/14/19 11/14/19 11/14/19 Range/Units 07:55 08:10 08:10 RBC 3.38 L (3.65-5.03) M/mm3 RDW 15.9 H (13.2-15.2) % Seg Neuts % (Manual) 84.0 H (40.0-70.0) % Seg Neutrophils # Man 0.0 L (1.8-7.7) K/mm3 Lymphocytes # (Manual) 0.0 L (1.2-5.4) K/mm3 VBG pH (7.320-7.420) Potassium 5.3 H (3.6-5.0) mmol/L Carbon Dioxide 18 L (22-30) mmol/L BUN 23 H (7-17) mg/dL Creatinine 1.5 H (0.7-1.2) mg/dL Glucose 322 H (65-100) mg/dL POC Glucose 311 H (70-105) Lactic Acid (0.7-2.0) mmol/L Alkaline Phosphatase 139 H (35-129) units/L NT-Pro-B Natriuret Pep (0-450) pg/mL Total Protein 9.0 H (6.3-8.2) g/dL 11/14/19 11/14/19 11/14/19 Range/Units 08:10 08:10 08:10 RBC (3.65-5.03) M/mm3 RDW (13.2-15.2) % Seg Neuts % (Manual) (40.0-70.0) % Seg Neutrophils # Man (1.8-7.7) K/mm3 Lymphocytes # (Manual) (1.2-5.4) K/mm3 VBG pH 7.429 H (7.320-7.420) Potassium (3.6-5.0) mmol/L Carbon Dioxide (22-30) mmol/L BUN (7-17) mg/dL Creatinine (0.7-1.2) mg/dL Glucose (65-100) mg/dL POC Glucose (70-105) Lactic Acid 2.90 H* (0.7-2.0) mmol/L Alkaline Phosphatase (35-129) units/L NT-Pro-B Natriuret Pep 470.5 H (0-450) pg/mL Total Protein (6.3-8.2) g/dL Assessment and Plan - Patient Problems (1) VIVI (acute kidney injury) Current Visit: Yes Status: Acute Plan to address problem: IV fluid resuscitation therapy, monitor urine output every shift, avoid nephrotoxic agents, BMP to monitor serum creatinine in a.m. Nephrology consulted in ED. (2) Metabolic acidosis Current Visit: Yes Status: Acute Plan to address problem: BMP, IV bicarbonate therapy, IV fluid resuscitation therapy as tolerated, repeat BMP in a.m. (3) Hyperkalemia Current Visit: Yes Status: Acute Plan to address problem: IV insulin therapy, repeat BMP in a.m. (4) Chronic pain Current Visit: Yes Status: Acute Qualifiers: Chronic pain type: chronic pain syndrome Qualified Code(s): G89.4 - Chronic pain syndrome Plan to address problem: Supportive care, continue home narcotic regimen, (5) Diabetic gastroparesis Current Visit: Yes Status: Acute Plan to address problem: Frequent small meals, pain control, antiemetic therapy, early ambulation. (6) DVT prophylaxis Current Visit: Yes Status: Acute Plan to address problem: SCD to bilateral lower extremities, prophylactic heparin
[2019-11-14] MEDS ORDERED: ALBUTEROL 2.5 MG/3 ML NEBU IH PRN (10:16)
[2019-11-14] MEDS ORDERED: ACETAMINOPHEN 325 MG TAB PO PRN (10:16)
[2019-11-14 10:26] LABS: Bacteria,Urine 1+ /HPF (Negative); Bilirubin,Urine NEG (Negative); Blood,Urine SM (Negative); Color,Urine Yellow (Yellow)
[2019-11-14 10:32] LABS: HCG Qualitative,Urine Negative (Negative)
[2019-11-14] MEDS ORDERED: SODIUM CHLORIDE 0.9% 1000 ML 1,000 ML ONE (10:44)
[2019-11-14] MEDS ORDERED: INSULIN REGULAR, HUMAN 100 UNITS/1 ML ONE (10:44)
--- NOTE | 2019-11-14 11:49 | Cat Scan Report ---
CT abdomen pelvis wo con INDICATION: abd pain. TECHNIQUE: All CT scans at this location are performed using the following dose modulation technique: Automated exposure control. CONTRAST: None. COMPARISON: 02/27/2019. CT ABDOMEN: The parenchymal organs are unremarkable in appearance other than a [address] one at the upper pole of the left kidney. Negative for abdominal mass, fluid or inflammation. The bow el is not dilated or thickened. Status post previous cholecystectomy. Negative for biliary dilatation. Mild dilatation/thickening of the distal esophagus remains. CT PELVIS: Negative for mass, fluid or inflammation. A fat-containing ventral hernia is moderate in s ize. IMPRESSION: 1. Negative for obstruction, constipation or localized inflammation. 2. Moderate fat-containing ventral hernia. 3. Mild dilatation/thickening of the distal esophagus unchanged. Signer Name: Rohit Tomlin MD Signed: 11/14/2019 11:44 AM Workstation Name: [id number]
[2019-11-14] MEDS ORDERED: GINGER ROOT 250 MG PO PRN (12:29)
[2019-11-14] MEDS ORDERED: ACETAMINOPHEN 500 MG TAB PO PRN (12:29)
[2019-11-14] MEDS ORDERED: PROMETHAZINE 25 MG TAB PO PRN (12:29)
[2019-11-14] MEDS ORDERED: METOCLOPRAMIDE 10 MG TAB PO PRN (12:29)
[2019-11-14] MEDS ORDERED: SODIUM BICARB 8.4% 50 MEQ/50 ML SYRINGE IV ONE (12:31)
[2019-11-14] MEDS ORDERED: DEXTROSE 50% IN WATER (25GM) 50 ML SYRINGE IV PRN (12:32)
[2019-11-14] MEDS: oxyCODONE /ACETAMINOPHEN 5-325MG TAB PO PRN ×2 (14:51→20:56)
[2019-11-14] MEDS: ONDANSETRON 4 MG/2 ML INJ IV PRN ×2 (14:56→19:09)
[2019-11-14 15:02] LABS: Calcium 9.8 mg/dL (8.4-10.2)
[2019-11-14] MEDS: GABAPENTIN 300 MG CAP PO SCH (16:45)
--- NOTE | 2019-11-14 17:23 | Consultation ---
History of Present Illness - Reason for Consult Consult date: 11/14/19 Requesting physician: YARA MONTALVO - History of Present Illness 43-year-old lady who is well-known to me with history of chronic kidney disease who actually had acute kidney injury and was on dialysis for some time last year. Kidney function improved back to stage 3 chronic kidney disease. Patient has been poorly compliant with follow-ups in the office. She presents on account of abdominal pain and vomiting. Abdominal pain is constant and radiating to her back has been going on for about 2-3 weeks. She has not been eating or drinking. She has no sick any medical attention. She was having car trouble per Family member at bedtime. BUN/creatinine on presentation with 23/1.5 mg/dL with potassium a bit high at 5.3 mmol per liter. Lactic acid was high at 2.6. Milligrams per deciliter but has improved. On her most recent hospitalization in December 2018, creatinine was 1.7 mg/dL. Past History Past Medical History: arthritis, diabetes, hypertension, other (See HPI) Past Surgical History: appendectomy, cholecystectomy, Other (Breast surgery, chest port) Social history: , lives with family. denies: smoking, alcohol abuse, prescription drug abuse Family history: diabetes, hypertension Medications and Allergies Allergies Allergy/AdvReac Type Severity Reaction Status Date / Time ketorolac tromethamine Allergy Unknown Verified 07/05/19 10:47 [From Toradol] meperidine HCl [From Demerol] Allergy Shortness Verified 07/05/19 10:47 of Breath Home Medications Medication Instructions Recorded Confirmed Last Taken Type Insulin NPH Hum/Reg Insulin Hm 30 - 40 unit SQ QAMDIAB 10/05/15 11/14/19 10/09/18 20:00 History [HumuLIN 70-30 Vial] Amitriptyline [Elavil] 50 mg PO QHS 01/08/19 11/14/19 Unknown History Famotidine [Pepcid] 20 mg PO BID 01/08/19 01/08/19 Unknown History Promethazine [Phenergan] 25 mg PO Q8HR PRN 01/08/19 11/14/19 Unknown History amLODIPine 10 mg PO DAILY 01/08/19 11/14/19 Unknown History Ferrous Gluconate [Fergon 325 MG 325 mg PO QDAY #30 tablet 01/11/19 11/14/19 Unknown Rx tab] Folic Acid [Folvite] 1 mg PO QDAY #30 tablet 01/11/19 11/14/19 Unknown Rx Gabapentin 300 mg PO DAILY #30 01/11/19 11/14/19 Unknown Rx Famotidine [Pepcid] 40 mg PO QHS #10 tablet 02/27/19 11/14/19 Unknown Rx Pantoprazole [Protonix] 40 mg PO QDAY #30 tablet 02/27/19 11/14/19 Unknown Rx Bacitracin 1 applic TD BID #3.5 oint...g. 04/23/19 Unknown Rx oxyCODONE /ACETAMINOPHEN [Percocet 1 tab PO Q6HR PRN #10 tablet 07/05/19 0 11/14/19 Unknown Rx 5/325] Acetaminophen [Non-Aspirin Extra 500 mg PO Q6HR PRN #30 tablet 10/02/19 11/14/19 Unknown Rx Strength] Anita Root [Anita] 250 mg PO QID PRN #30 capsule 10/02/19 11/14/19 Unknown Rx Metoclopramide [Reglan] 10 mg PO QID PRN #30 tablet 10/02/19 11/14/19 Unknown Rx Active Meds: Active Medications Acetaminophen (Tylenol) 650 mg PO Q4H PRN PRN Reason: Pain MILD(1-3)/Fever >100.5/[place]ON Albuterol (Proventil) 2.5 mg IH Q4HRT PRN PRN Reason: Shortness Of Breath Amitriptyline HCl (Elavil) 50 mg PO QHS ELISA Amlodipine Besylate (Amlodipine) 10 mg PO DAILY [facility] Aspirin (Baby Aspirin) 81 mg PO QDAY ONE Stop: 11/15/19 12:01 Bacitracin/Polymyxin B Sulfate (Polysporin) 1 applic TP BID [facility] Dextrose (D50w (25gm) Syringe) 50 ml IV Q30MIN PRN; Protocol PRN Reason: Hypoglycemia Ferrous Gluconate (Fergon) 325 mg PO QDAY ELISA Folic Acid (Folvite) 1 mg PO QDAY [facility] Gabapentin (Gabapentin) 300 mg PO DAILY [facility] Last Admin: 11/14/19 16:45 Dose: Not Given Documented by: Heparin Sodium (Porcine) (Heparin) 5,000 unit SUB-Q Q12HR [facility] Hydralazine HCl (Apresoline) 10 mg IV Q6HR PRN PRN Reason: Hypertension Sodium Chloride (Nacl 0.9% 1000 Ml) 1,000 mls @ 125 mls/hr IV ONCE ONE Stop: 11/14/19 18:13 Last Admin: 11/14/19 10:44 Dose: 125 mls/hr Documented by: Insulin Human Lispro (Humalog) 0 unit SUB-Q Q6HR ELISA; Protocol Metoclopramide HCl (Reglan) 10 mg PO QID PRN PRN Reason: Nausea Ondansetron HCl (Zofran) 4 mg IV Q8H PRN PRN Reason: Nausea And Vomiting Last Admin: 11/14/19 14:56 Dose: 4 mg Documented by: Oxycodone/Acetaminophen (Percocet 5/325) 1 tab PO Q6HR PRN PRN Reason: PAIN Last Admin: 11/14/19 14:51 Dose: 1 tab Documented by: Pantoprazole Sodium (Protonix) 40 mg PO QDAY ELISA Promethazine HCl (Phenergan) 25 mg PO Q8HR PRN PRN Reason: Nausea Sodium Chloride (Sodium Chloride Flush Syringe 10 Ml) 10 ml IV BID ELISA Sodium Chloride (Sodium Chloride Flush Syringe 10 Ml) 10 ml IV PRN PRN PRN Reason: LINE FLUSH Review of Systems All systems: negative (Constitutional: no fever or chills. No anorexia or weight loss. HEENT: No sore throat or sinus drainage no hearing or vision impairment . Cardiovascular: No chest pain, shortness of breath, palpitations, lower extremity swelling or dizziness. Respiratory: No cough, sputum, shortness of breath, hemoptysis or wheezing. Gastrointestinal: See history of present illness. No hematemesis or melena. Genitourinary: No frequency urgency dysuria or hematuria. hematologic: No abnormal bleeding or bruising. Integumentary: no pruritus or rash. Neurological: No headache no focal weakness or numbness, no syncope or seizures. Musculoskeletal: Admits to joint pain and stiffness all over Psychiatry: Admits to anxiety and depression) Exam - Vital Signs Vital signs: Vital Signs Pulse Resp Pulse Ox 111 H 17 99 11/14/19 06:41 11/14/19 06:41 11/14/19 06:41 - Physical Exam Narrative exam: Morbidly obese middle-aged [place] female lying in bed in distress from pain HEENT: NCAT, pink oral mucous membrane Neck: Supple, no venous distention CVS: S1S2 RRR with no murmur, rub or gallop Chest: Clear to auscultation Abdomen: Obese, soft to firm, tender, no organomegaly, bowel sounds are present Extremities: No edema, wrinkled skin Neuro: Awake, alert no focal deficits Results - Lab Results 11/14/19 08:10 11/14/19 14:25 Most recent lab results Calcium 9.8 mg/dL (8.4-10.2) 11/14/19 14:25 Magnesium 2.30 mg/dL (1.7-2.3) 11/14/19 08:10 Assessment and Plan - Patient Problems (1) Chronic kidney disease, stage 3 (moderate) Current Visit: Yes Status: Acute Plan to address problem: Chronic kidney disease presently secondary to diabetic nephropathy/hypertensive nephrosclerosis and prior acute kidney injury acute tubular necrosis. Kidney function is stable at patient's baseline (2) Hypertensive chronic kidney disease with stage 1 through stage 4 chronic kidney disease, or unspecified chronic kidney disease Current Visit: Yes Status: Acute Plan to address problem: Follow blood pressure on current medications (3) Diabetic gastroparesis associated with type 2 diabetes mellitus Current Visit: Yes Status: Acute Plan to address problem: IV antiemetics per primary attending (4) Abdominal pain Current Visit: Yes Status: Acute Qualifiers: Abdominal location: generalized Qualified Code(s): R10.84 - Generalized abdominal pain Plan to address problem: Pain management by primary attending (5) Hyperkalemia Current Visit: Yes Status: Acute Plan to address problem: Hyperkalemia probably secondary to transcellular shift from transient acidosis. Potassium improved. Follow up in the morning
[2019-11-14] MEDS: hydrALAZINE 20 MG/1 ML INJ IV PRN (18:02)
[2019-11-14] MEDS ORDERED: MORPHINE 2 MG/1 ML INJ IV ONE (18:14)
[2019-11-14] MEDS: INSULIN LISPRO 100 UNIT/ML SUB-Q SCH (18:42)
[2019-11-14] MEDS ORDERED: SODIUM CHLORIDE 0.45% 1000 ML 1,000 ML IV SCH (21:00)
[2019-11-14] MEDS: HEPARIN 5,000 UNIT/1 ML VIAL SUB-Q SCH (21:07)
[2019-11-14] MEDS ORDERED: BACITRACIN TD SCH (22:00)
[2019-11-14] MEDS ORDERED: NON-FORMULARY EACH (Famotidine [Pepcid] 40 MG) PO SCH (22:00)
[2019-11-14] MEDS ORDERED: AMITRIPTYLINE 25 MG TAB PO SCH (22:00)
[2019-11-14] MEDS ORDERED: HYDROmorphone 2 MG/1 ML INJ IV ONE (22:00)
[2019-11-14] MEDS ORDERED: AMITRIPTYLINE 50 MG PO SCH (22:00)
[2019-11-14] MEDS ORDERED: FAMOTIDINE 20 MG TAB PO SCH ×2 (22:00)
[2019-11-14] MEDS: BACITRACIN/POLYMYXIN B OINT 28.35 GM TP SCH (22:48)
[2019-11-15] MEDS: hydrALAZINE 20 MG/1 ML INJ IV PRN ×2 (06:45→12:49)
[2019-11-15] MEDS: INSULIN LISPRO 100 UNIT/ML SUB-Q SCH ×3 (06:47→13:33)
--- NOTE | 2019-11-15 08:45 | Progress Note ---
Assessment and Plan - Patient Problems (1) Chronic kidney disease, stage 3 (moderate) Current Visit: Yes Status: Acute Plan to address problem: Chronic kidney disease presently secondary to diabetic nephropathy/hypertensive nephrosclerosis and prior acute kidney injury acute tubular necrosis. Kidney function is stable at patient's baseline (2) Hypertensive chronic kidney disease with stage 1 through stage 4 chronic kidney disease, or unspecified chronic kidney disease Current Visit: Yes Status: Acute Plan to address problem: Follow blood pressure on current medications (3) Diabetic gastroparesis associated with type 2 diabetes mellitus Current Visit: Yes Status: Acute Plan to address problem: IV antiemetics per primary attending (4) Abdominal pain Current Visit: Yes Status: Acute Qualifiers: Abdominal location: generalized Qualified Code(s): R10.84 - Generalized abdominal pain Plan to address problem: Pain management by primary attending (5) Hyperkalemia Current Visit: Yes Status: Acute Plan to address problem: Hyperkalemia probably secondary to transcellular shift from transient acido sis/hyperglycemia. Potassium improved. Subjective Date of service: 11/15/19 Principal diagnosis: CKD Interval history: Pt awake, alert, in no acute distress. Objective - Vital Signs Vital signs: Vital Signs - 12hr 11/14/19 11/15/19 11/15/19 22:27 05:35 06:45 Temperature 98.4 F 98.1 F Pulse Rate 98 H 96 H 76 Respiratory 16 20 Rate Blood Pressure 143/91 175/108 175/108 O2 Sat by Pulse 100 100 Oximetry - General Appearance General appearance: well-developed, well-nourished, appears stated age, obese EENT: ATNC, PERRL, mucous membranes moist Neck: no JVD Respiratory: Present: Clear to Ascultation Cardiology: regular, S1S2 Gastrointestinal: normoactive bowel sounds, obese Integumentary: no rash, other (no edema ) Neurologic: no focal deficit, alert and oriented x3, strength 5/5, CN 3-12 intact Psychiatric: mood/affect appropriate, cooperative - Lab 11/14/19 08:10 11/14/19 14:25 Most recent lab results Calcium 9.8 mg/dL (8.4-10.2) 11/14/19 14:25 Magnesium 2.30 mg/dL (1.7-2.3) 11/14/19 08:10 Medications & Allergies - Medications Allergies/Adverse Reactions: Allergies ketorolac tromethamine [From Toradol] Allergy (Verified 07/05/19 10:47) Unknown meperidine HCl [From Demerol] Allergy (Verified 07/05/19 10:47) Shortness of Breath Home Medications: Home Medications Medication Instructions Recorded Confirmed Last Taken Type Insulin NPH Hum/Reg Insulin Hm 30 - 40 unit SQ QAMDIAB 10/05/15 11/14/19 10/09/18 20:00 History [HumuLIN 70-30 Vial] Amitriptyline [Elavil] 50 mg PO QHS 01/08/19 11/14/19 Unknown History Famotidine [Pepcid] 20 mg PO BID 01/08/19 01/08/19 Unknown History Promethazine [Phenergan] 25 mg PO Q8HR PRN 01/08/19 11/14/19 Unknown History amLODIPine 10 mg PO DAILY 01/08/19 11/14/19 Unknown History Ferrous Gluconate [Fergon 325 MG 325 mg PO QDAY #30 tablet 01/11/19 11/14/19 Unknown Rx tab] Folic Acid [Folvite] 1 mg PO QDAY #30 tablet 01/11/19 11/14/19 Unknown Rx Gabapentin 300 mg PO DAILY #30 01/11/19 11/14/19 Unknown Rx Famotidine [Pepcid] 40 mg PO QHS #10 tablet 02/27/19 11/14/19 Unknown Rx Pantoprazole [Protonix] 40 mg PO QDAY #30 tablet 02/27/19 11/14/19 Unknown Rx Bacitracin 1 applic TD BID #3.5 oint...g. 04/23/19 Unknown Rx oxyCODONE /ACETAMINOPHEN [Percocet 1 tab PO Q6HR PRN #10 tablet 07/05/19 11/14/19 Unknown Rx 5/325] Acetaminophen [Non-Aspirin Extra 500 mg PO Q6HR PRN #30 tablet 10/02/19 11/14/19 Unknown Rx Strength] Anita Root [Anita] 250 mg PO QID PRN #30 capsule 10/02/19 11/14/19 Unknown Rx Metoclopramide [Reglan] 10 mg PO QID PRN #30 tablet 10/02/19 11/14/19 Unknown Rx Active Medications: Generic Name Dose Route Start Last Admin Trade Name Freq PRN Reason Stop Dose Admin Acetaminophen 650 mg 11/14/19 10:16 Tylenol PO Q4H PRN Pain MILD(1-3)/Fever >100.5/[place] Albuterol 2.5 mg 11/14/19 10:16 Proventil IH Q4HRT PRN Shortness Of Breath Amitriptyline HCl 50 mg 11/14/19 22:00 11/14/19 22:00 Elavil PO 50 mg QHS ELISA Administration Amlodipine Besylate 10 mg 11/15/19 10:00 Amlodipine PO DAILY [facility] Aspirin 81 mg 11/15/19 12:00 Baby Aspirin PO 11/15/19 12:01 QDAY ONE Bacitracin/Polymyxin B Sulfate 1 applic 11/14/19 22:00 11/14/19 22:48 Polysporin TP 1 applic BID ELISA Administration Dextrose 50 ml 11/14/19 12:32 D50w (25gm) Syringe IV Q30MIN PRN Hypoglycemia Protocol Ferrous Gluconate 325 mg 11/15/19 10:00 Fergon PO QDAY ELISA Folic Acid 1 mg 11/15/19 10:00 Folvite PO QDAY ELISA Gabapentin 300 mg 11/14/19 16:30 11/14/19 16:45 Gabapentin PO Not Given DAILY [facility] Heparin Sodium (Porcine) 5,000 unit 11/14/19 22:00 11/14/19 21:07 Heparin SUB-Q 5,000 unit Q12HR ELISA Administration Hydralazine HCl 10 mg 11/14/19 12:28 11/15/19 06:45 Apresoline IV 10 mg Q6HR PRN Administration Hypertension Sodium Chloride 1,000 mls @ 75 mls/hr 11/14/19 21:00 11/15/19 04:15 Nacl 0.45% 1000 Ml IV 75 mls/hr DIRECT ELISA Administration Insulin Human Lispro 0 unit 11/14/19 18:00 11/15/19 06:47 Humalog SUB-Q 4 unit Q6HR ELISA Administration Protocol Metoclopramide HCl 10 mg 11/14/19 12:29 11/14/19 21:36 Reglan PO 10 mg QID PRN Administration Nausea Ondansetron HCl 4 mg 11/14/19 10:16 11/14/19 19:09 Zofran IV 4 mg Q8H PRN Administration Nausea And Vomiting Oxycodone/Acetaminophen 1 tab 11/14/19 12:29 11/14/19 20:56 Percocet 5/325 PO 1 tab Q6HR PRN Administration PAIN Pantoprazole Sodium 40 mg 11/15/19 10:00 Protonix PO QDAY ELISA Promethazine HCl 25 mg 11/14/19 12:29 11/14/19 18:03 Phenergan PO 25 mg Q8HR PRN Administration Nausea Sodium Chloride 10 ml 11/14/19 22:00 11/14/19 21:39 Sodium Chloride Flush Syringe 10 Ml IV 10 ml BID ELISA Administration Sodium Chloride 10 ml 11/14/19 10:16 Sodium Chloride Flush Syringe 10 Ml IV PRN PRN LINE FLUSH
[2019-11-15] MEDS: GABAPENTIN 300 MG CAP PO SCH (09:45)
[2019-11-15] MEDS: BACITRACIN/POLYMYXIN B OINT 28.35 GM TP SCH (09:46)
[2019-11-15] MEDS: HEPARIN 5,000 UNIT/1 ML VIAL SUB-Q SCH (09:52)
[2019-11-15] MEDS: amLODIPine 10 MG TAB PO SCH ×2 (09:52→16:09)
[2019-11-15] MEDS ORDERED: PANTOPRAZOLE 40 MG TAB PO SCH (10:00)
[2019-11-15] MEDS ORDERED: FERROUS GLUCONATE 324 MG TAB PO SCH ×2 (10:00)
[2019-11-15] MEDS ORDERED: GABAPENTIN 300 MG CAP PO SCH (10:00)
[2019-11-15] MEDS ORDERED: FOLIC ACID 1 MG TAB PO SCH (10:00)
[2019-11-15] MEDS ORDERED: ASPIRIN 81 MG TAB CHEW PO ONE (12:00)
[2019-11-15] MEDS ORDERED: HYDROmorphone 1 MG/1 ML INJ IV ONE (12:28)
--- NOTE | 2019-11-15 12:29 | Discharge Summary ---
Providers - Providers Date of Admission: 11/14/19 10:16 Attending physician: IBRAHIMA EL MD 11/14/19 10:16 Consult to Physician [CONS] Routine Comment: Consulting Provider: RIAZ LAFLEUR Physician Instructions: Reason For Exam: vivi Primary care physician: RIAZ LAFLEUR Hospitalization Reason for admission: Back pain Condition: Stable Hospital course: 43 YO Female with DM, HTN, Resolved ESRD not undergoing dialysis , [place], CHF, Spina bifida, chronic abdominal pain not otherwise specified chronic back pain and opiod dependence, ANEMIA , Gastroparesis, chronic respiratory failure on 3 L home oxygen via nasal cannula presents to ED for evaluation. Pt states that she has experienced nausea and multiple episodes of vomiting over the past 3 days with persistent symptoms over the same timeframe. Pt states that she has been unable to take her medication by mouth due to her nausea. Patient reports pain episodes are intermittent with increased frequency over the past 1 day. Pt states that pain is 3-4/10, not worsened with movement, not relieved with rest. EMS notified and upon arrival the patient was found to be in distress and tr ansported to [facility] for further care and evaluation. Patient seen and evaluated in the emergency department. Lab and imaging studies reviewed. Patient found to have acute kidney injury, metabolic acidosis, as well as gastroparesis. Patient admitted to medical floor for medical stabilization due to increased risk of decompensation. Nephrology team consulted in ED. Patient treated with IV fluid resuscitation therapy and pain management. Pt denies fever, chills, Palpitations, hemoptysis, NVD, syncope, trauma, BRBPR. Prior admission on 01/08/2019 reviewed. All listed medication reconciled at time of admission. CT of the abdomen pelvis was negative for obstruction constipation or localized inflammation. There is a moderate fat-containing ventral hernia and also a mild dilatation/thickening of the distal esophagitis which is read as unchanged. wants dialudid x 1 and wants to be discharged Using more pain meds than prescribe but has not told her doctors that she has increased pain She will follow with them Denies any fever she is tolerating diet. Plan discussed with Nursing staff Patient during hospitalization was seen by ultrasound supervisor with notation that the creatinine is stable. Patient was also noted to have extensive elevated blood pressure which could be secondary to pain although on resolved and diastolic was still elevated making us add a second blood pressure agent for better control. Extensive counseling was provided to the patient greater than 15 minutes on need to be compliant with follow-up with primary care doctors and repeat studies on discharge. It is well-documented the patient was previously on dialysis but no longer. (1) VIVI (acute kidney injury) secondary to vasomotor nephropathy with underlying CKD stage III (2) Metabolic acidosis (3) Hyperkalemia resolved (4) Chronic pain (5) Diabetic gastroparesis Morbidly obese Spinal Bifida Disposition: TO HOME OR SELFCARE Time spent for discharge: 35 mins Core Measure Documentation - Palliative Care Palliative Care/ Comfort Measures: Not Applicable - Core Measures Any of the following diagnoses?: none Exam - Physical Exam Narrative exam: VITAL SIGNS: Reviewed. GENERAL: The patient appears normally developed, morbidly obese vital signs as documented. HEAD: No signs of head trauma. EYES: Pupils are equal. Extraocular motions intact. EARS: Hearing grossly intact. MOUTH: Oropharynx is normal. NECK: No adenopathy, no JVD. CHEST: Chest with clear breath sounds bilaterally. No wheezes, rales, or rhonchi. CARDIAC: Regular rate and rhythm. S1 and S2, without murmurs, gallops, or rubs. VASCULAR: No Edema. Peripheral pulses normal and equal in all extremities. ABDOMEN: Soft, non tender and non distended. No rebound or guarding, and no masses palpated. Bowel Sounds normal. MUSCULOSKELETAL: Good range of motion of all major joints. Extremities without clubbing, cyanosis or edema. NEUROLOGIC EXAM: Alert and oriented x 3 No focal sensory or strength deficits. Speech normal. Follows commands. PSYCHIATRIC: Mood normal. SKIN: detial exam as documented in skin assessment - Constitutional Vitals: Temp Pulse Resp BP Pulse Ox 98.1 F 76 20 101/60 100 11/15/19 05:35 11/15/19 06:45 11/15/19 05:35 11/15/19 09:52 11/15/19 05:35 Plan Activity: advance as tolerated, fall precautions Diet: low fat, renal Special Instructions: record daily weights, record daily BP diary Additional Instructions: pateint must follow with the pain doctors for adju stment of her pain medication Follow up with: RIAZ LAFLEUR MD [Primary Care Provider] - 3-5 Days
[2019-11-15 16:10] VITALS: BP 150/95
== END 2019-11-15 16:40 | disposition home or self-care (01) ==
LOC: ED 06:20 → INTOOBSV 10:16 → 3A 10:16
PROVIDERS: ADMIT Internal Medicine; ATTEND Internal Medicine
DX: N17.0 Acute kidney failure with tubular necrosis (principal); E87.2 Acidosis; E87.5 Hyperkalemia; G89.29 Other chronic pain; E11.43 Type 2 diabetes mellitus with diabetic autonomic (poly)neuropathy; K31.84 Gastroparesis; R11.2 Nausea with vomiting, unspecified; I12.9 Hypertensive chronic kidney disease with stage 1 through stage 4 chronic kidney disease, or unspecified chronic kidney disease; E11.22 Type 2 diabetes mellitus with diabetic chronic kidney disease; N18.3 Chronic kidney disease, stage 3 (moderate); E66.01 Morbid (severe) obesity due to excess calories; Q05.9 Spina bifida, unspecified; Z79.899 Other long term (current) drug therapy; Z79.4 Long term (current) use of insulin
CPT/HCPCS: 36415; 71045; 74176; 80048; 80076; 81001; 81025; 82010; 82140; 82805; 82962; 83690; 83735; 83880; 84484; 85007; 85025; 85610; 85730; 87040; 87086; 93005; 93010; 94640; 96361; 96365; 96372; 96375; 96376; 99284; G0378; J0360; J0692; J1170; J1200; J1644; J2270; J2405; J7030; Q0169; J1815

== ENCOUNTER 2019-11-28 16:17 | Emergency (ER) | payer MEDICAID ==
[2019-11-28] MEDS ORDERED: ONDANSETRON 4 MG ODT TAB PO ONE (18:04)
--- NOTE | 2019-11-28 18:06 | Event Note ---
ED Screening Note ED Screening Note: NV x 3-4 days unable to keep anything down. seen here numerous times. +dizzy, denies fever chills This initial assessment/diagnostic orders/clinical plan/treatment(s) is/are subject to change based on patients health status, clinical progression and re- assessment by fellow clinical providers in the ED. Further treatment and workup at subsequent clinical providers discretion. Patient/guardian urged not to elope from the ED as their condition may be serious if not clinically assessed and managed. Initial orders include: basic labs ACC or main
[2019-11-28 18:42] LABS: Basophils % (Auto) 0.3 % (0.0-1.8); Eosinophils % (Auto) 0.7 % (0.0-4.3); Hematocrit 34.9 % (30.3-42.9); Hemoglobin 11.6 gm/dl (10.1-14.3); Lymphocytes # (Auto) 1.5 K/mm3 (1.2-5.4); Lymphocytes % (Auto) 28.3 % (13.4-35.0); Mean Corpuscular HGB Conc 33 % (30-34); Mean Corpuscular Volume 93 fl (79-97); Monocytes # (Auto) 0.3 K/mm3 (0.0-0.8); Monocytes % (Auto) 5.9 % (0.0-7.3); Platelet Count 234 K/mm3 (140-440); Red Blood Count 3.76 M/mm3 (3.65-5.03); Red Cell Distribution Width 15.4 % (13.2-15.2)
[2019-11-28 19:02] LABS: Albumin 4.3 g/dL (3.9-5); Calcium 10.2 mg/dL (8.4-10.2)
== END 2019-11-28 22:10 | disposition left against medical advice (07) ==
LOC: ED 16:17
DX: R10.9 Unspecified abdominal pain (principal); Z53.21 Procedure and treatment not carried out due to patient leaving prior to being seen by health care provider
CPT/HCPCS: 36415; 80053; 83690; 85025

== ENCOUNTER 2020-09-11 07:11 | Emergency (ER) | payer MEDICAID ==
--- NOTE | 2020-09-11 12:45 | Emergency Department Report ---
ED General Adult HPI - General Chief complaint: Back Pain/Injury Stated complaint: ABDOMINAL PAIN PUI?: No Time Seen by Provider: 09/11/20 12:26 Source: patient, RN notes reviewed Mode of arrival: Ambulatory Limitations: No Limitations - History of Present Illness Initial comments: The patient was evaluated in the emergency department for symptoms described in the history of present illness. He/she was evaluated in the context of the global COVID-19 pandemic, which necessitated consideration that the patient might be at risk for infection with the virus that causes COVID-19. Institutional protocols and algorithms that pertain to the evaluation of patients at risk for COVID-19 are in a state of rapid change based on in formation released by regulatory bodies including the CDC and federal and state organizations. These policies and algorithms were followed during the patient's care in the emergency department. Please note that these policies, procedures and recommendations changed on a rapid basis. Patient is a 44-year-old female. I am familiar with this patient. Her past medical history includes diabetes, hypertension, resolved renal disease, not on dialysis, morbid obesity, CHF, spina bifida, chronic abdominal pain, chronic back pain, opioid dependence, anemia, gastroparesis, history of respiratory failure. As per review of prior medical documentation, patient typically favors Dilaudid/hydromorphone. Today, during her history and physical examination, I am accompanied by nurse Sade Gibbs. Patient states that she had a colostomy reversal performed about 6 weeks ago at [facility], by a Dr. Cheyanne Rojas. She presents to the ER today with her typical complaint of nontraumatic para lumbar back pain, and left-sided abdominal pain. She denies headache, neck pain, chest pain, new/different shortness of breath, and dysuria/urinary symptoms. She reports a few episodes of nonbloody, nonbilious emesis. Her pain is typically improved with hydromorphone. As per review of the [place] prescription monitoring database, it appears that she has had 26 controlled prescriptions, since the onset of this year, from 8 different prescribers. -: Gradual, days(s) Location: back, abdomen Radiation: non-radiation Severity scale (0 -10): 10 Quality: aching Consistency: constant Improves with: medication, rest Worsens with: movement - Related Data Home Medications Medication Instructions Recorded Confirmed Last Taken Insulin NPH Hum/Reg Insulin Hm 30 - 40 unit SQ QAMDIAB 10/05/15 11/14/19 10/09/18 20:00 [HumuLIN 70-30 Vial] Amitriptyline [Elavil] 50 mg PO QHS 01/08/19 11/14/19 Unknown Famotidine [Pepcid] 20 mg PO BID 01/08/19 01/08/19 Unknown Promethazine [Phenergan] 25 mg PO Q8HR PRN 01/08/19 11/14/19 Unknown amLODIPine 10 mg PO DAILY 01/08/19 11/14/19 Unknown Previous Rx's Medication Instructions Recorded Last Taken Type Ferrous Gluconate [Fergon 325 MG 325 mg PO QDAY #30 tablet 01/11/19 Unknown Rx tab] Folic Acid [Folvite] 1 mg PO QDAY #30 tablet 01/11/19 Unknown Rx Gabapentin 300 mg PO DAILY #30 01/11/19 Unknown Rx Bacitracin 1 applic TD BID #3.5 oint...g. 04/23/19 Unknown Rx Acetaminophen [Non-Aspirin Extra 500 mg PO Q6HR PRN #30 tablet 09/11/20 Unknown Rx Strength] Anita Root [Anita] 250 mg PO QID PRN #30 capsule 09/11/20 Unknown Rx Magnesium Oxide 400 mg PO QDAY #30 tablet 09/11/20 Unknown Rx Metoclopramide [Reglan TAB] 10 mg PO QID PRN #30 tablet 09/11/20 Unknown Rx Pantoprazole [Protonix TAB] 40 mg PO QDAY #30 tablet 09/11/20 Unknown Rx Allergies Allergy/AdvReac Type Severity Reaction Status Date / Time ketorolac tromethamine Allergy Unknown Verified 07/05/19 10:47 [From Toradol] meperidine HCl [From Demerol] Allergy Shortness Verified 07/05/19 10:47 of Breath ED Review of Systems ROS: Stated complaint: ABDOMINAL PAIN Other details as noted in HPI Constitutional: other (Denies loss of taste, loss of smell). denies: fever Respiratory: denies: wheezing Cardiovascular: denies: chest pain Gastrointestinal: abdominal pain, nausea, vomiting. denies: hematemesis, melena, hematochezia Genitourinary: denies: dysuria Musculoskeletal: back pain Neurological: denies: weakness Hematological/Lymphatic: denies: easy bleeding ED Past Medical Hx - Past Medical History Previous Medical History?: Yes Hx Hypertension: Yes (Hospitalized in hypertensive crisis 08/28/18) Hx CVA: No Hx Congestive Heart Failure: No Hx Diabetes: Yes Hx GERD: Yes Hx Renal Disease: Yes Hx Arthritis: Yes (All joints) Hx Headaches / Migraines: Yes (Migraines) Hx Psychiatric Treatment: No Hx Asthma: Yes (no recent albuterol use) Hx COPD: No Hx HIV: No Additional medical history: spina bifida, Gastroparesis. morbid obesity, home oxygen @ 3LPM nasal cannula - Surgical History Past Surgical History?: Yes Hx Cholecystectomy: Yes Hx Appendectomy: Yes Hx Breast Surgery: Yes (breast reduction) Additional Surgical History: Right chest port-discontinued, Ostomy reversal - Social History Smoking Status: Never Smoker Substance Use Type: Prescribed - Medications Home Medications: Home Medications Medication Instructions Recorded Confirmed Last Taken Type Insulin NPH Hum/Reg Insulin Hm 30 - 40 unit SQ QAMDIAB 10/05/15 11/14/19 1 12/10/17 20:00 History [HumuLIN 70-30 Vial] Amitriptyline [Elavil] 50 mg PO QHS 01/08/19 11/14/19 Unknown History Famotidine [Pepcid] 20 mg PO BID 01/08/19 01/08/19 Unknown History Promethazine [Phenergan] 25 mg PO Q8HR PRN 01/08/19 11/14/19 Unknown History amLODIPine 10 mg PO DAILY 01/08/19 11/14/19 Unknown History Ferrous Gluconate [Fergon 325 MG 325 mg PO QDAY #30 tablet 01/11/19 11/14/19 Unknown Rx tab] Folic Acid [Folvite] 1 mg PO QDAY #30 tablet 01/11/19 11/14/19 Unknown Rx Gabapentin 300 mg PO DAILY #30 01/11/19 11/14/19 Unknown Rx Bacitracin 1 applic TD BID #3.5 oint...g. 04/23/19 Unknown Rx Acetaminophen [Non-Aspirin Extra 500 mg PO Q6HR PRN #30 tablet 09/11/20 Unknown Rx Strength] Anita Root [Anita] 250 mg PO QID PRN #30 capsule 09/11/20 Unknown Rx Magnesium Oxide 400 mg PO QDAY #30 tablet 09/11/20 Unknown Rx Metoclopramide [Reglan TAB] 10 mg PO QID PRN #30 tablet 09/11/20 Unknown Rx Pantoprazole [Protonix TAB] 40 mg PO QDAY #30 tablet 09/11/20 Unknown Rx ED Physical Exam - General Limitations: No Limitations General appearance: alert, in no apparent distress, obese - Head Head exam: Present: atraumatic, normocephalic - Eye Eye exam: Present: normal appearance, EOMI. Absent: nystagmus - ENT ENT exam: Present: normal exam, normal orophraynx, mucous membranes moist, normal external ear exam - Neck Neck exam: Present: normal inspection, full ROM. Absent: tenderness, m eningismus - Respiratory Respiratory exam: Present: normal lung sounds bilaterally. Absent: respiratory distress, wheezes, rales, rhonchi, stridor, decreased breath sounds - Cardiovascular Cardiovascular Exam: Present: regular rate, normal rhythm, normal heart sounds. Absent: bradycardia, tachycardia, irregular rhythm, systolic murmur, diastolic murmur, rubs, gallop - GI/Abdominal GI/Abdominal exam: Present: soft, tenderness, other (There is minimal left lower quadrant tenderness to deep palpation.). Absent: distended, guarding, rebound, rigid, pulsatile mass - Extremities Exam Extremities exam: Present: normal inspection, full ROM, other (2+ pulses noted in the bilateral upper and lower extremities. There is no palpable cord. n egative Homans sign. Muscular compartments are soft. The pelvis is stable.). Absent: calf tenderness - Back Exam Back exam: Present: normal inspection. Absent: tenderness, CVA tenderness (R), CVA tenderness (L), paraspinal tenderness, vertebral tenderness - Neurological Exam Neurological exam: Present: alert, normal gait, other (No facial droop. Tongue midline. Extraocular movements intact bilaterally. Facial sensation intact to light touch in V1, V2, V3 distribution bilaterally. 5 and a 5 strength in 4 extremities. Sensation intact to light touch in 4 extremities.) - Psychiatric Psychiatric exam: Present: normal affect, normal mood - Skin Skin exam: Present: warm, dry, intact, normal color. 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 08/31/2020 1 08/15/2020 OXYCODONE-ACETAMINOPHEN 5-325 24.0 6 MA WAL [id number] SANTOSH ([id number]) [address] 08/27/2020 2 08/27/2020 OXYCODONE-ACETAMINOPHEN 10-325 40.0 10 [place] CU- [id number] FORWA ([id number]) [address] 07/30/2020 2 07/30/2020 OXYCODONE-ACETAMINOPHEN 10-325 40.0 10 [place] CU- [id number] [place] ([id number]) 0 60.0 [place] 07/30/2020 2 07/30/2020 LYRICA 150 MG CAPSULE 60.0 30 [place] CU- [id number] [place] ([id number]) 0 [place] 07/16/2020 2 07/16/2020 OXYCODONE-ACETAMINOPHEN 5-325 12.0 3 MA COR [id number] [facility] ([id number]) 0 30.0 [place] 06/30/2020 2 06/30/2020 OXYCODONE-ACETAMINOPHEN 10-325 30.0 7 [place] CU- [id number] [facility] ([id number]) 0 64.29 [place] 06/30/2020 2 06/30/2020 LYRICA 150 MG CAPSULE 60.0 30 [place] CU- [id number] [place] ([id number]) 0 [place] 05/31/2020 2 05/31/2020 OXYCODONE-ACETAMINOPHEN 10-325 30.0 7 [place] CU- [id number] [place] ([id number]) 0 64.29 [place] 05/31/2020 2 04/30/2020 LYRICA 150 MG CAPSULE 60.0 30 ER HOW [id number] [place] ([id number]) 1 [place] 05/07/2020 2 05/07/2020 HYDROCODONE-ACETAMIN 10-325 MG 15.0 3 DA TOMMY [id number] [facility] ([id number]) 0 50.0 [place] 04/30/2020 2 04/30/2020 OXYCODONE-ACETAMINOPHEN 10-325 30.0 7 [place] CU- [id number] [facility] ([id number]) 0 64.29 [place] 04/30/2020 2 04/30/2020 LYRICA 150 MG CAPSULE 60.0 30 ER HOW [id number] [place] ([id number]) [address] 04/09/2020 2 04/09/2020 OXYCODONE-ACETAMINOPHEN 10-325 10.0 2 AL CU- [id number] [facility] ([id number]) [address] 03/29/2020 2 03/29/2020 OXYCODONE HCL 5 MG TABLET 24.[address] SPE [id number] [facility] ([id number]) [address] 03/01/2020 2 03/01/2020 OXYCODONE-ACETAMINOPHEN 10-325 30.0 7 AL CU- [id number] [place] ([id number]) [address] 03/01/2020 2 10/31/2019 LYRICA 150 MG CAPSULE 60.0 30 ER HOW [id number] [facility] ([id number]) [address] 01/30/2020 2 01/30/2020 OXYCODONE-ACETAMINOPHEN 10-325 30.0 7 AL CU- [id number] [facility] ([id number]) [address] 01/15/2020 2 01/15/2020 OXYCODONE-ACETAMINOPHEN 5-325 12.0 3 MA WHE [id number] [facility] ([id number]) [address] 12/29/2019 2 12/29/2019 OXYCODONE-ACETAMINOPHEN 10-325 30.0 7 AL CU- [id number] [place] ([id number]) [address] 12/29/2019 2 10/31/2019 LYRICA 150 MG CAPSULE 60.0 30 ER HOW [id number] FOR[place] ([id number]) [address] 12/15/2019 2 12/15/2019 OXYCODONE-ACETAMINOPHEN 10-325 8.0 2 ZAVALA WAZ [id number] [facility] ([id number]) [address] 12/01/2019 2 10/31/2019 LYRICA 150 MG CAPSULE 60.0 30 ER HOW [id number] [place] ([id number]) [address] 10/31/2019 2 10/31/2019 OXYCODONE-ACETAMINOPHEN 10-325 75.0 25 ER HOW [id number] [place] ([id number]) [address] 10/31/2019 2 10/31/2019 LYRICA 150 MG CAPSULE 60.0 30 ER HOW [id number] JADEN ([id number]) 0 [place] Reevaluation #2: 09/11/20 14:59 Differential diagnosis, including but not limited to: Chronic back pain, chronic abdominal pain, narcotic bowel syndrome, obstruction, colitis, diverticulitis, volvulus, dehydration, surgical complication Assessment and plan: 44-year-old female with chronic abdominal pain and back pain. I have evaluated this patient multiple times at multiple hospitals. Today, she is afebrile, with reassuring vital signs, without rebound, guarding or peritoneal signs. She walks with a steady gait. No active vomiting witnessed by myself or nursing team. Patient medicated appropriately. CT scan of the abdomen pelvis is obtained. Results pending at this time. Do not anticipate need for transfer, hospitalization, or further inpatient management. She reports that she saw her surgeon within the past week. Anticipate discharge with outpatient management, assuming objective diagnostic imaging testing unremarkable for obstruction /emergent findings. Reevaluation #3: 09/11/20 15:21 Patient walking with a steady gait, and she is not in any acute distress at this time. No active vomiting at this time. CT scan of the abdomen pelvis is reviewed and appreciated. Patient indicated that she was having left-sided abdominal pain, not right-sided. There is no right sided abdominal pain, tenderness, rebound or guarding. Do not clinically suspect infectious pathology in the abdominal wall seroma. Patient endorsed no urinary symptoms. She states that she followed up with her surgeon within the past week. CT scan shows nonemergent incidental abnormal findings, specifically in the adrenals, this is reviewed and appreciated. This can be followed up by an outpatient primary care doctor. No active vomiting that myself or nursing staff have witnessed. Patient suitable for discharge with outpatient follow-up ED Medical Decision Making - Lab Data Result diagrams: 09/11/20 13:20 09/11/20 13:20 Vital Signs 09/11/20 08:36 Temperature 98.7 F Pulse Rate 97 H Respiratory 20 Rate Blood Pressure 165/98 [Right] O2 Sat by Pulse 100 Oximetry Lab Results 09/11/20 09/11/20 09/11/20 Range/Units 13:20 13:20 13:20 Hgb 10.5 (10.1-14.3) gm/dl Hct 32.4 (30.3-42.9) % Plt Count 429 (140-440) K/mm3 Sodium 141 (137-145) mmol/L Potassium 4.0 (3.6-5.0) mmol/L Chloride 106.4 (98-107) mmol/L Carbon Dioxide 18 L (22-30) mmol/L Anion Gap 21 mmol/L BUN 26 H (7-17) mg/dL Creatinine 1.4 H (0.6-1.2) mg/dL Estimated GFR 50 ml/min BUN/Creatinine Ratio 19 % Glucose 130 H (65-100) mg/dL Calcium 9.7 (8.4-10.2) mg/dL Magnesium 1.50 L (1.7-2.3) mg/dL Total Creatine Kinase 86 (30-135) units/L HCG, Quant (0-4) mIU/mL 09/11/20 Range/Units 13:20 Hgb (10.1-14.3) gm/dl Hct (30.3-42.9) % Plt Count (140-440) K/mm3 Sodium (137-145) mmol/L Potassium (3.6-5.0) mmol/L Chloride (98-107) mmol/L Carbon Dioxide (22-30) mmol/L Anion Gap mmol/L BUN (7-17) mg/dL Creatinine (0.6-1.2) mg/dL Estimated GFR ml/min BUN/Creatinine Ratio % Glucose (65-100) mg/dL Calcium (8.4-10.2) mg/dL Magnesium (1.7-2.3) mg/dL Total Creatine Kinase (30-135) units/L HCG, Quant < 2 (0-4) mIU/mL - Radiology Data Radiology results: report reviewed, image reviewed CT ABDOMEN AND PELVIS WITHOUT CONTRAST INDICATION: Left lower quadrant abdomin al pain, nausea and vomiting for 2 days. TECHNIQUE: Axial CT images were obtained through the abdomen and pelvis without IV contrast. All CT scans at this location are performed using CT dose reduction for ALARA by means of automated exposure control. COMPARISON: CT abdomen pelvis 11/14/2019 FINDINGS: LOWER CHEST: No significant abnormality. LIVER: No significant abnormality. GALLBLADDER: Surgically absent. BILE DUCTS: No significant abnormality. PANCREAS: No significant abnormality. SPLEEN: No significant abnormality. ADRENALS: Left adrenal within normal limits. Stable indeterminate 1.3 cm right adrenal nodule with a density of 30. RIGHT KIDNEY and URETER: No significant abnormality. LEFT KIDNEY and URETER: Nonobstructing 6 mm stone upper pole left kidney, unchanged. No ureteral stone or hydronephrosis STOMACH and SMALL BOWEL: No significant abnormality. COLON: Interval right hemicolectomy with 7 cm fluid collection right lower quadrant subcutaneous soft tissues likely secondary to seroma. APPENDIX: Surgically absent PERITONEUM: No free fluid. No free air. No fluid collection. LYMPH NODES: No significant adenopathy. AORTA and ARTERIES: No significant abnormality. IVC and VEINS: No significant abnormality. URINARY BLADDER: No significant abnormality. REPRODUCTIVE ORGANS: No significant abnormality. ADDITIONAL FINDINGS: None. SKELETAL SYSTEM: No significant abnormality. IMPRESSION: 1. Interval right hemicolectomy with postop 7 cm seroma right lower quadrant subcutaneous soft tissues 2. Stable left nephrolithiasis 3. Stable indeterminate 1.3 cm right adrenal nodule. Adrenal MRI may confirm presence or absence of adenoma as warranted clinically Signer Name: Rocky Balderrama MD Signed: 09/11/2020 2:05 PM Critical care attestation.: If time is entered above; I have spent that time in minutes in the direct care of this critically ill patient, excluding procedure time. ED Disposition Clinical Impression: Morbid obesity, Generalized abdominal pain, Chronic back pain, Chronic pain, Hypomagnesemia Disposition: DC-01 TO HOME OR SELFCARE Is pt being admited?: No Does the pt Need Aspirin: No Condition: Good Additional Instructions: Minimize/avoid consumption of Motrin, ibuprofen, Naprosyn, Aleve. Avoid consumption of heavy and spicy foods. Recommend weight loss, physical activities as tolerated, outpatient physical therapy. Take the pain medication, nausea medication and magnesium supplementation as needed and directed. Please follow-up with the primary care doctor or your surgeon of record within the next week. Please return to the emergency room right away with new pain, worsened pain, migration of pain, projectile vomiting, change in mental status, confusion, inability to tolerate liquid feeds, new, worsened or different symptoms not present on the initial emergency room evaluation. Patient was not found to have an emergent medical condition present today, however, patient did have nonemergent incidental abnormalities noted on laboratory studies, and CT scan of the abdomen pelvis. Please have your primary care doctor or surgeon contact medical records department to obtain medical records, and follow-up on nonemergent incidental abnormalities. Recommend follow-up within the next week. Prescriptions: Anita Root [Anita] 250 mg PO QID PRN #30 capsule PRN Reason: Nausea Magnesium Oxide 400 mg PO QDAY #30 tablet Acetaminophen [Non-Aspirin Extra Strength] 500 mg PO Q6HR PRN #30 tablet PRN Reason: Pain , Severe (7-10) Pantoprazole [Protonix TAB] 40 mg PO QDAY #30 tablet Metoclopramide [Reglan TAB] 10 mg PO QID PRN #30 tablet PRN Reason: Nausea Referrals: cheyanne rojas [Other] - 3-5 Days [facility] [Provider Group] - 3-5 Days
[2020-09-11] MEDS ORDERED: ONDANSETRON 4 MG ODT TAB PO ONE (12:54)
[2020-09-11] MEDS ORDERED: HYDROmorphone 1 MG/1 ML INJ IM ONE (12:54)
[2020-09-11 13:38] LABS: Hematocrit 32.4 % (30.3-42.9); Hemoglobin 10.5 gm/dl (10.1-14.3)
[2020-09-11 14:02] LABS: Calcium 9.7 mg/dL (8.4-10.2)
[2020-09-11] MEDS ORDERED: MAGNESIUM OXIDE 400 MG TAB PO STA (14:52)
--- NOTE | 2020-09-11 15:10 | Cat Scan Report ---
CT ABDOMEN AND PELVIS WITHOUT CONTRAST INDICATION: Left lower quadrant abdominal pain, nausea and vomiting for 2 days. TECHNIQUE: Axial CT images were obtained through the abdomen and pelvis without IV contrast. All CT scans at [facility] location are performed using CT dose reduction for ALARA by means of automated exposure control. COMPARISON: CT abdomen pelvis 11/14/2019 FINDINGS: LOWER CHEST: No significant abnormality. LIVER: No significant abnormality. GALLBLADDER: Surgically absent. BILE DUCTS: No significant abnormality. PANCREAS: No significant abnormality. SPLEEN: No significant abnormality. ADRENALS: Left adrenal within normal limits. Stable indeterminate 1.3 cm right adrenal nodule with a density of 30. RIGHT KIDNEY and URETER: No significant abnormality. LEFT KIDNEY and URETER: Nonobstructing 6 mm stone upper pole left kidney, unchanged. No ureteral ston e or hydronephrosis STOMACH and SMALL BOWEL: No significant abnormality. COLON: Interval right hemicolectomy with 7 cm fluid collection right lower quadrant subcutaneous soft tissues likely secondary to seroma. APPENDIX: Surgically absent PERITONEUM: No free fluid. No free air. No fluid collection. LYMPH NODES: No significant adenopathy. AORTA and ARTERIES: No significant abnormality. IVC and VEINS: No significant abnormality. URINARY BLADDER: No significant abnormality. REPRODUCTIVE ORGANS: No significant abnormality. ADDITIONAL FINDINGS: None. SKELETAL SYSTEM: No significant abnormality. IMPRESSION: 1. Interval right hemicolectomy with postop 7 cm seroma right lower quadrant subcutaneous soft tissue s 2. Stable left nephrolithiasis 3. Stable indeterminate 1.3 cm right adrenal nodule. Adrenal MRI may confirm presence or absence of a denoma as warranted clinically Signer Name: Rocky Balderrama MD Signed: 09/11/2020 3:05 PM Workstation Name: [id number]
[2020-09-11 15:52] LABS: Bilirubin,Urine NEG (Negative); Blood,Urine MOD (Negative); Color,Urine Straw (Yellow); Protein,Urine <15 mg/dL mg/dL (Negative); Urobilinogen,Urine < 2.0 mg/dL (<2.0)
[2020-09-11 17:12] VITALS: BP 163/98
== END 2020-09-11 17:15 | disposition home or self-care (01) ==
LOC: ED 07:11
DX: E83.42 Hypomagnesemia (principal); R10.84 Generalized abdominal pain; E66.01 Morbid (severe) obesity due to excess calories; M54.5 Low back pain; G89.29 Other chronic pain; I10 Essential (primary) hypertension; E11.9 Type 2 diabetes mellitus without complications; K21.9 Gastro-esophageal reflux disease without esophagitis; M19.91 Primary osteoarthritis, unspecified site; G43.909 Migraine, unspecified, not intractable, without status migrainosus; J45.909 Unspecified asthma, uncomplicated; Z68.42 Body mass index [BMI] 45.0-49.9, adult; Z90.49 Acquired absence of other specified parts of digestive tract; Z98.890 Other specified postprocedural states; Z79.4 Long term (current) use of insulin; Z79.899 Other long term (current) drug therapy; Z88.8 Allergy status to other drugs, medicaments and biological substances
CPT/HCPCS: 36415; 74176; 80048; 81001; 82550; 83735; 84702; 85014; 85018; 85049; 96372; 99284; J1170; Q0162

== ENCOUNTER 2021-01-05 13:57 | Emergency (ER) | payer MEDICAID ==
[2021-01-05] MEDS ORDERED: ONDANSETRON 4 MG/2 ML INJ IV ONE ×2 (14:51→18:15)
[2021-01-05] MEDS ORDERED: SODIUM CHLORIDE 0.9% 1000 ML 1,000 ML IV ONE (14:51)
--- NOTE | 2021-01-05 14:56 | Event Note ---
ED Screening Note ED Screening Note: 45 YO OBESE FEMALE WITH ABD PAIN RAD THROUGH TO HER BACK N/V FOR 3 DAYS HERE END OF 12/12-- SEE SCAN REPORT STATES SHE HAS NOT EATEN IN 3 DAYS COMES TO ER VIA EMS BG IN AMBULANCE WAS 91 PER REPORT SP REVERSAL OF OSTOMY SP COLON RESECTION; SHE WAS CLOSED IN 08/10-- "BECAUSE PART OF MY INTESTINES " EXTENSIVE MED HX WILL NEED SCAN - ALLERGY TO IODINE- WILL NEED ON CONTINUUM OF CARE MANAGER This initial assessment/diagnostic orders/clinical plan/treatment(s) is/are subject to change based on patients health status, clinical progression and re- assessment by fellow clinical providers in the ED. Further treatment and workup at subsequent clinical providers discretion. Patient/guardian urged not to elope from the ED as their condition may be serious if not clinically assessed and managed. Initial orders include: LABS UA EKG
[2021-01-05] MEDS ORDERED: DICYCLOMINE 20 MG/2 ML INJ IM ONE (15:45)
[2021-01-05] MEDS ORDERED: FAMOTIDINE 20 MG/2 ML INJ IV ONE (15:45)
[2021-01-05] MEDS ORDERED: diphenhydrAMINE 50 MG/ML VIAL IV ONE (15:48)
[2021-01-05 16:17] LABS: Albumin 3.9 g/dL (3.9-5); Calcium 8.8 mg/dL (8.4-10.2)
[2021-01-05 16:18] LABS: Basophils # (Auto) 0.1 K/mm3 (0.0-0.1); Basophils % (Auto) 0.9 % (0.0-1.8); Eosinophils # (Auto) 0.1 K/mm3 (0.0-0.4); Hematocrit 27.2 % (30.3-42.9); Hemoglobin 8.9 gm/dl (10.1-14.3); Lymphocytes # (Auto) 2.5 K/mm3 (1.2-5.4); Mean Corpuscular HGB Conc 33 % (30-34); Mean Corpuscular Volume 96 fl (79-97); Monocytes # (Auto) 0.4 K/mm3 (0.0-0.8); Monocytes % (Auto) 5.3 % (0.0-7.3); Red Blood Count 2.84 M/mm3 (3.65-5.03); Red Cell Distribution Width 17.9 % (13.2-15.2)
[2021-01-05] MEDS ORDERED: MORPHINE 4 MG/1 ML INJ IV ONE (16:33)
[2021-01-05 16:52] LABS: Platelet Count 283 K/mm3 (140-440)
--- NOTE | 2021-01-05 17:12 | Cat Scan Report ---
CT ABDOMEN AND PELVIS WITHOUT CONTRAST HISTORY: Nausea, vomiting, abdominal pain COMPARISON: Prior CT on 12/17/2020. TECHNIQUE: Routine abdominal and pelvic CT exam performed without contrast. Lack of intravenous cont rast limits evaluation of the vascular and solid organs.. All CT scans at this location are performed using CT dose reduction for ALARA by means of automated exposure control. FINDINGS: CT ABDOMEN: Lung Bases: No significant abnormality. Liver: No significant abnormality. Biliary: Gallbladder is surgically absent. Spleen: No significant abnormality. Unenlarged. Pancreas: No significant abnormality. Adrenals: Stable right adrenal adenoma. Kidneys: There is a nonobstructing 5 mm stone in the left kidney which is stable. There is no acute a bnormality. Lymphatics: No lymphadenopathy. Vasculature: No significant abnormality. Bowel/Peritoneum: There are postsurgical changes from partial colectomy. There is no obstruction, tammi e air, or pneumatosis. CT PELVIC: : No significant abnormality. Lymphatics: No lymphadenopathy. Osseous Structures: No aggressive appearing osseous lesions. Additional Findings: Subcutaneous seroma in the right lower quadrant subcutaneous soft tissues in the abdomen continues to decrease in size, currently measuring about 4 cm. IMPRESSION: 1. No acute findings. 2. Continued resolution of postoperative seroma in the right lower abdominal subcutaneous soft tissue s. 3. Nonobstructing left intrarenal stone. Signer Name: Nilay Jha MD Signed: 01/05/2021 5:07 PM Workstation Name: [id number]
[2021-01-05 17:23] LABS: Bacteria,Urine 1+ /HPF (Negative); Bilirubin,Urine NEG (Negative); Blood,Urine NEG (Negative); Color,Urine Straw (Yellow); Protein,Urine <15 mg/dL mg/dL (Negative); Urobilinogen,Urine < 2.0 mg/dL (<2.0)
[2021-01-05 18:14] VITALS: BP 171/89
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
--- NOTE | 2021-01-06 08:13 | Electrocardiograph Report ---
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
== END 2021-01-05 18:44 | disposition home or self-care (01) ==
LOC: ED 13:57
DX: K29.70 Gastritis, unspecified, without bleeding (principal); I10 Essential (primary) hypertension; E11.9 Type 2 diabetes mellitus without complications; K21.9 Gastro-esophageal reflux disease without esophagitis; M19.90 Unspecified osteoarthritis, unspecified site; J45.909 Unspecified asthma, uncomplicated; G43.909 Migraine, unspecified, not intractable, without status migrainosus; Z90.49 Acquired absence of other specified parts of digestive tract; Z98.890 Other specified postprocedural states; Z79.4 Long term (current) use of insulin; Z79.899 Other long term (current) drug therapy; Z88.8 Allergy status to other drugs, medicaments and biological substances
CPT/HCPCS: 36415; 74176; 80053; 81001; 82140; 83690; 84484; 84702; 85025; 87040; 93005; 96361; 96372; 96374; 96375; 96376; J0500; J1200; J2270; J2405; J7030

== ENCOUNTER 2021-02-11 11:47 | Emergency (ER) | payer MEDICAID ==
[2021-02-11 12:27] VITALS: BP 125/107
[2021-02-11 13:16] LABS: Basophils % (Auto) 0.1 % (0.0-1.8); Eosinophils % (Auto) 0.2 % (0.0-4.3); Hematocrit 29.9 % (30.3-42.9); Hemoglobin 9.8 gm/dl (10.1-14.3); Lymphocytes # (Auto) 0.8 K/mm3 (1.2-5.4); Lymphocytes % (Auto) 12.4 % (13.4-35.0); Mean Corpuscular HGB Conc 33 % (30-34); Mean Corpuscular Volume 92 fl (79-97); Monocytes # (Auto) 0.3 K/mm3 (0.0-0.8); Monocytes % (Auto) 4.9 % (0.0-7.3); Platelet Count 328 K/mm3 (140-440); Red Blood Count 3.26 M/mm3 (3.65-5.03); Red Cell Distribution Width 19.5 % (13.2-15.2)
[2021-02-11 13:33] LABS: Alanine Aminotransferase 8 units/L (7-56); Albumin 4.7 g/dL (3.9-5); BUN/Creatinine Ratio 11; Blood Urea Nitrogen 17 mg/dL (7-17); Calcium 9.6 mg/dL (8.4-10.2); Hemolysis Index 3
[2021-02-11 13:42] LABS: Bilirubin,Direct < 0.2 mg/dL (0-0.2)
[2021-02-11] MEDS ORDERED: SODIUM CHLORIDE 0.9% 1000 ML 1,000 ML IV ONE (13:49)
[2021-02-11] MEDS ORDERED: ONDANSETRON 4 MG ODT TAB PO ONE (13:49)
[2021-02-11] MEDS ORDERED: METOCLOPRAMIDE 10 MG/2 ML INJ IV ONE (13:49)
--- NOTE | 2021-02-11 13:53 | Event Note ---
ED Screening Note Date of service: 02/11/21 Time: 14:00 ED Screening Note: She presents with diffuse abdominal pain, low back pain and nausea and vomiting. She has a history of diabetes and gastroparesis secondary to diabetes. Patient is well-known to the ER with frequent ER visits for the same. She reports associated shortness of breath but no other symptoms. This initial assessment/diagnostic orders/clinical plan/treatment(s) is/are subject to change based on patients health status, clinical progression and re- assessment by fellow clinical providers in the ED. Further treatment and workup at subsequent clinical providers discretion. Patient/guardian urged not to elope from the ED as their condition may be serious if not clinically assessed and managed. Initial orders include: labs/cxr/ekg
--- NOTE | 2021-02-11 14:36 | XRay Report ---
XR chest routine 2V INDICATION / CLINICAL INFORMATION: SOB vomiting. COMPARISON: 01/19/2021 FINDINGS: SUPPORT DEVICES: None. HEART /PULMONARY VASCULATURE: No significant abnormality. LUNGS / PLEURA: Low lung volumes remain. No significant pulmonary or pleural abnormality. No pneumoth orax. ADDITIONAL FINDINGS: No significant additional findings. No free air is seen beneath the diaphragm. IMPRESSION: 1. No acute findings. Signer Name: Yrn Funk MD Signed: 02/11/2021 2:32 PM Workstation Name: [id number]
== END 2021-02-11 14:58 ==
LOC: ED 11:47
DX: R10.84 Generalized abdominal pain (principal); R11.2 Nausea with vomiting, unspecified; M54.5 Low back pain; Z53.21 Procedure and treatment not carried out due to patient leaving prior to being seen by health care provider
CPT/HCPCS: 36415; 71046; 80048; 80076; 83690; 84703; 85025; J2765; J7030; Q0162

== ENCOUNTER 2021-05-12 04:49 | Emergency (ER) | payer MEDICAID ==
[2021-05-12 05:03] VITALS: BP 182/123
[2021-05-12 06:21] LABS: Basophils % (Auto) 0.4 % (0.0-1.8); Eosinophils # (Auto) 0.1 K/mm3 (0.0-0.4); Eosinophils % (Auto) 2.1 % (0.0-4.3); Hematocrit 25.8 % (30.3-42.9); Hemoglobin 8.3 gm/dl (10.1-14.3); Lymphocytes # (Auto) 1.5 K/mm3 (1.2-5.4); Lymphocytes % (Auto) 30.9 % (13.4-35.0); Mean Corpuscular HGB Conc 32 % (30-34); Mean Corpuscular Volume 98 fl (79-97); Monocytes # (Auto) 0.3 K/mm3 (0.0-0.8); Monocytes % (Auto) 6.7 % (0.0-7.3); Platelet Count 245 K/mm3 (140-440); Red Blood Count 2.64 M/mm3 (3.65-5.03); Red Cell Distribution Width 18.3 % (13.2-15.2)
[2021-05-12 06:48] LABS: Calcium 10.2 mg/dL (8.4-10.2)
== END 2021-05-12 06:10 | disposition left against medical advice (07) ==
LOC: ED 04:49
DX: R11.2 Nausea with vomiting, unspecified (principal); R10.9 Unspecified abdominal pain; Z53.21 Procedure and treatment not carried out due to patient leaving prior to being seen by health care provider
CPT/HCPCS: 36415; 80053; 84703; 85025

== ENCOUNTER 2021-05-14 08:56 | Emergency (ER) | payer MEDICAID ==
[2021-05-14] MEDS ORDERED: DICYCLOMINE 20 MG/2 ML INJ IM ONE (10:43)
[2021-05-14] MEDS ORDERED: ZIPRASIDONE MESYLATE 20 MG VIAL IM ONE (10:43)
[2021-05-14] MEDS ORDERED: ONDANSETRON 4 MG/2 ML INJ IV ONE (10:43)
[2021-05-14] MEDS ORDERED: SODIUM CHLORIDE 0.9% 1000 ML 1,000 ML IV ONE (10:43)
--- NOTE | 2021-05-14 10:44 | Emergency Department Report ---
ED N/V/D HPI - General Chief complaint: Nausea/Vomiting/Diarrhea Stated complaint: VOMITING/STOMACH PAIN/BACK PAIN Time Seen by Provider: 05/14/21 10:29 Source: patient Mode of arrival: Ambulatory Limitations: No Limitations - History of Present Illness Initial comments: Patient is a 45-year-old F Georgian female is well-known to our department with a past medical history of diabetes hypertension gastroparesis spina bifida congestive heart failure and a pulmonary embolus in the past who is currently taking Eliquis who is presenting with her chronic abdominal pain with nausea vomiting. Patient states she had nausea vomiting for the past 3 days and has been a unable to keep anything down. Denies diarrhea fevers cough cold or congestion. Patient has been here for similar symptoms in the past. - Related Data Home Medications Medication Instructions Recorded Confirmed Last Taken Insulin NPH/Regular 10 unit SUB-Q BID 01/06/21 01/06/21 Unknown Previous Rx's Medication Instructions Recorded Last Taken Type Sucralfate [Carafate] 1 gm PO Q6HR #60 tablet 01/05/21 Unknown Rx Insulin Glargine [Lantus VIAL] 20 units SUB-Q QHS #10 ml 01/08/21 Unknown Rx Pantoprazole [Protonix TAB] 40 mg PO BID #60 tablet 01/08/21 Unknown Rx Promethazine [Phenergan] 25 mg PO Q6HR PRN #30 tab 01/08/21 Unknown Rx amLODIPine 10 mg PO QDAY #30 tablet 01/08/21 Unknown Rx hydrALAZINE [Apresoline TAB] 50 mg PO Q8HR #90 tablet 01/08/21 Unknown Rx Apixaban [Eliquis] 5 mg PO Q12HR #1 tablet 01/20/21 Unknown Rx Insulin Glargine [Lantus VIAL] 20 units SUB-Q QHS #5 pen 01/21/21 Unknown Rx Promethazine [Phenergan] 25 mg PO Q6HR PRN #20 tablet 01/21/21 Unknown Rx hydrALAZINE [Apresoline TAB] 50 mg PO Q8HR #90 tablet 01/21/21 Unknown Rx lisinopriL [Lisinopril] 20 mg PO DAILY #30 01/21/21 Unknown Rx oxyCODONE /ACETAMINOPHEN [Percocet 1 tab PO BID PRN #16 tablet 01/21/21 Unknown Rx 5/325 mg] Allergies Allergy/AdvReac Type Severity Reaction Status Date / Time haloperidol [From Haldol] Allergy Unknown Verified 05/14/21 09:04 ketorolac tromethamine Allergy Unknown Verified 05/14/21 09:04 [From Toradol] meperidine HCl [From Demerol] Allergy Shortness Verified 05/14/21 09:04 of Breath Iodinated Contrast Media AdvReac Itching Verified 05/14/21 09:04 ED Review of Systems ROS: Stated complaint: VOMITING/STOMACH PAIN/BACK PAIN Other details as noted in HPI Comment: All other systems reviewed and negative ED Past Medical Hx - Past Medical History Hx Hypertension: Yes (Hospitalized in hypertensive crisis 08/28/18) Hx CVA: No Hx Congestive Heart Failure: No Hx Diabetes: Yes Hx Deep Vein Thrombosis: Yes Hx Pulmonary Embolism: Yes (December 2020) Hx GERD: Yes Hx Renal Disease: Yes Hx Arthritis: Yes (All joints) Hx Headaches / Migraines: Yes (Migraines) Hx Psychiatric Treatment: No Hx Asthma: Yes (no recent albuterol use) Hx COPD: No Hx HIV: No Additional medical history: spina bifida, Gastroparesis. 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, - Social History Smoking Status: Never Smoker Substance Use Type: None - Medications Home Medications: Home Medications Medication Instructions Recorded Confirmed Last Taken Type Sucralfate [Carafate] 1 gm PO Q6HR #60 tablet 01/05/21 01/06/21 Unknown Rx Insulin NPH/Regular 10 unit SUB-Q BID 01/06/21 01/06/21 Unknown History Insulin Glargine [Lantus VIAL] 20 units SUB-Q QHS #10 ml 01/08/21 Unknown Rx Pantoprazole [Protonix TAB] 40 mg PO BID #60 tablet 01/08/21 Unknown Rx Promethazine [Phenergan] 25 mg PO Q6HR PRN #30 tab 01/08/21 Unknown Rx amLODIPine 10 mg PO QDAY #30 tablet 01/08/21 Unknown Rx hydrALAZINE [Apresoline TAB] 50 mg PO Q8HR #90 tablet 03/20/21 Unknown Rx Apixaban [Eliquis] 5 mg PO Q12HR #1 tablet 01/20/21 Unknown Rx Insulin Glargine [Lantus VIAL] 20 units SUB-Q QHS #5 pen 01/21/21 Unknown Rx Promethazine [Phenergan] 25 mg PO Q6HR PRN #20 tablet 01/21/21 Unknown Rx hydrALAZINE [Apresoline TAB] 50 mg PO Q8HR #90 tablet 01/21/21 Unknown Rx lisinopriL [Lisinopril] 20 mg PO DAILY #30 01/21/21 Unknown Rx oxyCODONE /ACETAMINOPHEN [Percocet 1 tab PO BID PRN #16 tablet 01/21/21 Unknown Rx 5/325 mg] ED Physical Exam - General Limitations: No Limitations General appearance: alert, in distress - Head Head exam: Present: atraumatic, normocephalic - Eye Eye exam: Present: normal appearance, PERRL, EOMI - ENT ENT exam: Present: mucous membranes moist - Neck Neck exam: Present: normal inspection - Respiratory Respiratory exam: Present: normal lung sounds bilaterally. Absent: respiratory distress, wheezes, rales, rhonchi - Cardiovascular Cardiovascular Exam: Present: regular rate, normal rhythm, normal heart sounds. Absent: systolic murmur, diastolic murmur, rubs, gallop - GI/Abdominal GI/Abdominal exam: Present: soft, tenderness (diffuse), normal bowel sounds. Absent: distended, guarding - Extremities Exam Extremities exam: Present: normal inspection - Back Exam Back exam: Present: normal inspection - Neurological Exam Neurological exam: Present: alert, oriented X3 - Psychiatric Psychiatric exam: Present: normal affect, normal mood - Skin Skin exam: Present: warm, dry, intact, normal color. Absent: rash ED Course Vital Signs 05/14/21 05/14/21 05/14/21 09:04 10:10 10:20 Temperature 98.4 F 98.7 F Pulse Rate 104 H 100 H Respiratory 20 26 H 18 Rate Blood Pressure 217/132 Blood Pressure 167/107 [Left] O2 Sat by Pulse 100 96 100 Oximetry ED Medical Decision Making - Lab Data Result diagrams: 05/14/21 Unknown - Medical Decision Making Patient alerted us that she wanted to leave AGAINST MEDICAL ADVICE because there was a in her family. She alerted the nurse of this and signed the AMA papers before her hemoglobin returned with a hemoglobin of 4.5. Attempt to contact the patient regarding this finding. Patient again had already left before getting the hemoglobin results Critical care attestation.: If time is entered above; I have spent that time in minutes in the direct care of this critically ill patient, excluding procedure time. ED Disposition Clinical Impression: Gastroparesis, Anemia Disposition: DC-07 LEFT AGAINST MED ADVICE Is pt being admited?: No Does the pt Need Aspirin: No Condition: Stable Referrals: [facility] [Other] - 3-5 Days Time of Disposition: 12:41
[2021-05-14 12:16] LABS: Basophils % (Auto) 0.4 % (0.0-1.8); Eosinophils % (Auto) 0.9 % (0.0-4.3); Lymphocytes # (Auto) 1.8 K/mm3 (1.2-5.4); Lymphocytes % (Auto) 35.1 % (13.4-35.0); Mean Corpuscular HGB Conc 34 % (30-34); Mean Corpuscular Volume 96 fl (79-97); Monocytes # (Auto) 0.4 K/mm3 (0.0-0.8); Monocytes % (Auto) 7.7 % (0.0-7.3); Platelet Count 347 K/mm3 (140-440); Red Blood Count 1.36 M/mm3 (3.65-5.03); Red Cell Distribution Width 17.4 % (13.2-15.2)
[2021-05-14 12:36] LABS: Hematocrit 13.7 % (30.3-42.9); Hemoglobin 4.5 gm/dl (10.1-14.3)
[2021-05-14 12:40] VITALS: BP 191/121
[2021-05-14 12:51] LABS: Albumin 4.4 g/dL (3.9-5); Calcium 10.2 mg/dL (8.4-10.2)
== END 2021-05-14 12:43 | disposition left against medical advice (07) ==
LOC: ED 08:56
DX: K31.84 Gastroparesis (principal); D64.9 Anemia, unspecified; E11.43 Type 2 diabetes mellitus with diabetic autonomic (poly)neuropathy; I10 Essential (primary) hypertension; K21.9 Gastro-esophageal reflux disease without esophagitis; M19.90 Unspecified osteoarthritis, unspecified site; J45.909 Unspecified asthma, uncomplicated; G43.909 Migraine, unspecified, not intractable, without status migrainosus; Z90.49 Acquired absence of other specified parts of digestive tract; Z98.890 Other specified postprocedural states; Z79.899 Other long term (current) drug therapy; Z88.8 Allergy status to other drugs, medicaments and biological substances; Z79.4 Long term (current) use of insulin
CPT/HCPCS: 36415; 80053; 85025; 96361; 96372; 96374; 99283; J2405; J3486; J7030; 96360; J0500

== ENCOUNTER 2021-06-03 07:25 | Emergency (ER) | payer MEDICAID ==
[2021-06-03 07:58] VITALS: BP 196/112
--- NOTE | 2021-06-03 08:58 | Event Note ---
ED Screening Note Date of service: 06/03/21 Time: 08:57 ED Screening Note: 45-year-old morbid obese -[place] female with a history of diabetes hypertension gastroparesis presents to the emergency room stating she is having vomiting abdominal pain back pain for the last 2 days. Patient states she last vomited prior to arrival. Patient states she has been taking her meclizine but has ran out. Does report she has been taking her blood pressure medication. Blood pressure today was 196/112 with a heart rate of 93. This initial assessment/diagnostic orders/clinical plan/treatment(s) is/are subject to change based on patients health status, clinical progression and re- assessment by fellow clinical providers in the ED. Further treatment and workup at subsequent clinical providers discretion. Patient/guardian urged not to elope from the ED as their condition may be serious if not clinically assessed and managed. Initial orders include: Basic labs have been ordered. Urinalysis has been ordered.
[2021-06-03] MEDS ORDERED: SODIUM CHLORIDE 0.9% 1000 ML 1,000 ML IV ONE (10:48)
[2021-06-03] MEDS ORDERED: DICYCLOMINE 20 MG/2 ML INJ IM ONE (10:48)
[2021-06-03] MEDS ORDERED: ONDANSETRON 4 MG/2 ML INJ IV ONE (10:48)
[2021-06-03] MEDS ORDERED: FAMOTIDINE 20 MG/2 ML INJ IV ONE (10:49)
--- NOTE | 2021-06-03 13:18 | Emergency Department Report ---
ED Neuro Deficit HPI - General Chief Complaint: Abdominal Pain Stated Complaint: vomiting stomacch and back pain Time Seen by Provider: 06/03/21 10:38 Source: patient Mode of arrival: Ambulatory Limitations: No Limitations - History of Present Illness Initial Comments: Koko patient is a 45-year-old F Russian female with past medical history of hypertension diabetes gastroparesis spina bifida who is presenting with nausea vomiting. States she has been throwing up for the last 3 days. Patient states she has some epigastric discomfort. Patient is well-known to the department has been here numerous times for the same. Last visit the patient left AGAINST MEDICAL ADVICE. She is denying any blood in her stool or coffee-ground emesis. - Related Data Home Medications: Home Medications Medication Instructions Recorded Confirmed Last Taken Insulin NPH/Regular 10 unit SUB-Q BID 01/06/21 01/06/21 Unknown Previous Rx's Medication Instructions Recorded Last Taken Type Sucralfate [Carafate] 1 gm PO Q6HR #60 tablet 01/05/21 Unknown Rx Insulin Glargine [Lantus VIAL] 20 units SUB-Q QHS #10 ml 01/08/21 Unknown Rx Pantoprazole [Protonix TAB] 40 mg PO BID #60 tablet 01/08/21 Unknown Rx Promethazine [Phenergan] 25 mg PO Q6HR PRN #30 tab 01/08/21 Unknown Rx amLODIPine 10 mg PO QDAY #30 tablet 01/08/21 Unknown Rx hydrALAZINE [Apresoline TAB] 50 mg PO Q8HR #90 tablet 01/08/21 Unknown Rx Apixaban [Eliquis] 5 mg PO Q12HR #1 tablet 01/20/21 Unknown Rx Insulin Glargine [Lantus VIAL] 20 units SUB-Q QHS #5 pen 01/21/21 Unknown Rx Promethazine [Phenergan] 25 mg PO Q6HR PRN #20 tablet 01/21/21 Unknown Rx hydrALAZINE [Apresoline TAB] 50 mg PO Q8HR #90 tablet 01/21/21 Unknown Rx lisinopriL [Lisinopril] 20 mg PO DAILY #30 01/21/21 Unknown Rx oxyCODONE /ACETAMINOPHEN [Percocet 1 tab PO BID PRN #16 tablet 01/21/21 Unknown Rx 5/325 mg] Promethazine HCl [Phenergan SUPPOS] 25 mg RC Q8HR PRN #12 supp.rect 06/03/21 Unknown Rx Promethazine [Phenergan] 25 mg PO Q8HR PRN #20 tab 06/03/21 Unknown Rx Allergies/Adverse Reactions: Allergies Allergy/AdvReac Type Severity Reaction Status Date / Time haloperidol [From Haldol] Allergy Unknown Verified 05/14/21 09:04 ketorolac tromethamine Allergy Unknown Verified 05/14/21 09:04 [From Toradol] meperidine HCl [From Demerol] Allergy Shortness Verified 05/14/21 09:04 of Breath Iodinated Contrast Media AdvReac Itching Verified 05/14/21 09:04 ED Review of Systems ROS: Stated complaint: vomiting stomacch and back pain Other details as noted in HPI Comment: All other systems reviewed and negative ED Past Medical Hx - Past Medical History Previous Medical History?: Yes Hx Hypertension: Yes (Hospitalized in hypertensive crisis 08/28/18) Hx CVA: No Hx Congestive Heart Failure: No Hx Diabetes: Yes Hx Deep Vein Thrombosis: Yes Hx Pulmonary Embolism: Yes (December 2020) Hx GERD: Yes Hx Renal Disease: Yes Hx Arthritis: Yes (All joints) Hx Headaches / Migraines: Yes (Migraines) Hx Psychiatric Treatment: No Hx Asthma: Yes (no recent albuterol use) Hx COPD: No Hx HIV: No Additional medical history: spina bifida, Gastroparesis. 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, - Social History Smoking Status: Never Smoker Substance Use Type: None - Medications Home Medications: Home Medications Medication Instructions Recorded Confirmed Last Taken Type Sucralfate [Carafate] 1 gm PO Q6HR #60 tablet 01/05/21 01/06/21 Unknown Rx Insulin NPH/Regular 10 unit SUB-Q BID 01/06/21 01/06/21 Unknown History Insulin Glargine [Lantus VIAL] 20 units SUB-Q QHS #10 ml 01/08/21 Unknown Rx Pantoprazole [Protonix TAB] 40 mg PO BID #60 tablet 01/08/21 Unknown Rx Promethazine [Phenergan] 25 mg PO Q6HR PRN #30 tab 01/08/21 Unknown Rx amLODIPine 10 mg PO QDAY #30 tablet 01/08/21 Unknown Rx hydrALAZINE [Apresoline TAB] 50 mg PO Q8HR #90 tablet 01/08/21 Unknown Rx Apixaban [Eliquis] 5 mg PO Q12HR #1 tablet 01/20/21 Unknown Rx Insulin Glargine [Lantus VIAL] 20 units SUB-Q QHS #5 pen 01/21/21 Unknown Rx Promethazine [Phenergan] 25 mg PO Q6HR PRN #20 tablet 01/21/21 Unknown Rx hydrALAZINE [Apresoline TAB] 50 mg PO Q8HR #90 tablet 01/21/21 Unknown Rx lisinopriL [Lisinopril] 20 mg PO DAILY #30 01/21/21 Unknown Rx oxyCODONE /ACETAMINOPHEN [Percocet 1 tab PO BID PRN #16 tablet 01/21/21 Unknown Rx 5/325 mg] Promethazine HCl [Phenergan SUPPOS] 25 mg RC Q8HR PRN #12 supp.rect 06/03/21 Unknown Rx Promethazine [Phenergan] 25 mg PO Q8HR PRN #20 tab 06/03/21 Unknown Rx ED Neuro Physical Exam - General Limitations: No Limitations General appearance: alert, in no apparent distress Suspected Stroke: No - Head Head exam: Present: atraumatic, normocephalic - Eye Eye exam: Present: normal appearance, PERRL, EOMI - ENT ENT exam: Present: mucous membranes moist - Neck Neck exam: Present: normal inspection - Respiratory Respiratory exam: Present: normal lung sounds bilaterally. Absent: respiratory distress, wheezes, rales, rhonchi - Cardiovascular Cardiovascular Exam: Present: regular rate, normal rhythm, normal heart sounds. Absent: systolic murmur, diastolic murmur, rubs, gallop - GI/Abdominal GI/Abdominal exam: Present: soft, normal bowel sounds. Absent: distended, tenderness, guarding, rebound - Extremities Exam Extremities exam: Present: normal inspection - Back Exam Back exam: Present: normal inspection - Neurological Exam Neurological exam: Present: alert, oriented X3 - Psychiatric Psychiatric exam: Present: normal affect, normal mood - Skin Skin exam: Present: warm, dry, intact, normal color. Absent: rash ED Course Vital Signs 06/03/21 07:54 Temperature 99.7 F H Pulse Rate 93 H Respiratory 20 Rate Blood Pressure 196/112 O2 Sat by Pulse 98 Oximetry - Medical Decision Making Patient is a 45-year-old F Russian female was presented with nausea vomiting. Patient refused blood draw. She states she would like to leave. Patient signed out AMA. She is requesting a prescription for Phenergan which will give the patient. Critical care attestation.: If time is entered above; I have spent that time in minutes in the direct care of this critically ill patient, excluding procedure time. ED Disposition Clinical Impression: Nausea & vomiting, Hypertensive urgency Disposition: LEFT AGAINST MEDICAL ADVICE Is pt being admited?: No Does the pt Need Aspirin: No Condition: Stable Instructions: Abdominal Pain (ED), Nausea and Vomiting, Adult, Hypertension, Adult, [id number] Prescriptions: Promethazine [Phenergan] 25 mg PO Q8HR PRN #20 tab PRN Reason: Nausea Promethazine HCl [Phenergan SUPPOS] 25 mg RC Q8HR PRN #12 supp.rect PRN Reason: Nausea Referrals: PRIMARY CARE, [Primary Care Provider] - 3-5 Days
[2021-06-03 13:35] LABS: Bacteria,Urine 1+ /HPF (Negative); Bilirubin,Urine NEG (Negative); Blood,Urine NEG (Negative); Color,Urine Straw (Yellow); Mucus,Urine FEW /HPF; Protein,Urine <15 mg/dL mg/dL (Negative); Urobilinogen,Urine < 2.0 mg/dL (<2.0)
== END 2021-06-03 13:45 | disposition left against medical advice (07) ==
LOC: ED 07:25
DX: R11.2 Nausea with vomiting, unspecified (principal); I16.0 Hypertensive urgency; E11.8 Type 2 diabetes mellitus with unspecified complications; K21.9 Gastro-esophageal reflux disease without esophagitis; I26.99 Other pulmonary embolism without acute cor pulmonale; G43.909 Migraine, unspecified, not intractable, without status migrainosus; M19.90 Unspecified osteoarthritis, unspecified site; N28.9 Disorder of kidney and ureter, unspecified; J45.909 Unspecified asthma, uncomplicated; E66.01 Morbid (severe) obesity due to excess calories; K31.84 Gastroparesis; K55.069 Acute infarction of intestine, part and extent unspecified; Z98.890 Other specified postprocedural states; Z88.5 Allergy status to narcotic agent; Z88.8 Allergy status to other drugs, medicaments and biological substances
CPT/HCPCS: 81001; 99283

== ENCOUNTER 2021-06-09 07:48 | Emergency (ER) | payer MEDICAID ==
[2021-06-09] MEDS ORDERED: HYOSCYAMINE SUBL 0.125 MG TAB SL ONE (11:37)
[2021-06-09] MEDS ORDERED: METOCLOPRAMIDE 10 MG/2 ML INJ IV ONE (11:37)
[2021-06-09] MEDS ORDERED: SODIUM CHLORIDE 0.9% 1000 ML 1,000 ML IV ONE ×2 (11:39→16:30)
--- NOTE | 2021-06-09 11:44 | Event Note ---
ED Screening Note Date of service: 06/09/21 Time: 11:41 ED Screening Note: 45 year old female who is well known to this ED, with pmhx of DM, gastroparesis, HTN and spina bifida presents to ED with complaints of abdominal pain, nausea and vomiting. Patient states she has not been able to "hold anything down" x 3 days. She also reports diffuse abd pain x 3 days. She states she has had similar symptoms in past usually related to her gastroparesis. She states she typically take phenergan for nausea but she is out. She states her BS has been "good". She is s/p cholecystectomy. Her last menstrual cycle was May 16, 2021. This initial assessment/diagnostic orders/clinical plan/treatment(s) is/are subject to change based on patients health status, clinical progression and re- assessment by fellow clinical providers in the ED. Further treatment and workup at subsequent clinical providers discretion. Patient/guardian urged not to elope from the ED as their condition may be serious if not clinically assessed and managed. Initial orders include: Labs
[2021-06-09 12:21] LABS: Basophils % (Auto) 0.1 % (0.0-1.8); Hematocrit 32.5 % (30.3-42.9); Hemoglobin 10.6 gm/dl (10.1-14.3); Lymphocytes # (Auto) 1.5 K/mm3 (1.2-5.4); Lymphocytes % (Auto) 17.7 % (13.4-35.0); Mean Corpuscular HGB Conc 33 % (30-34); Mean Corpuscular Volume 96 fl (79-97); Monocytes # (Auto) 0.5 K/mm3 (0.0-0.8); Monocytes % (Auto) 5.3 % (0.0-7.3); Platelet Count 337 K/mm3 (140-440); Red Blood Count 3.38 M/mm3 (3.65-5.03)
[2021-06-09 12:37] LABS: Bilirubin,Urine NEG (Negative); Blood,Urine SM (Negative); Color,Urine Yellow (Yellow); Mucus,Urine FEW /HPF; Urobilinogen,Urine < 2.0 mg/dL (<2.0)
[2021-06-09 12:44] LABS: Albumin 4.6 g/dL (3.9-5); Calcium 10.2 mg/dL (8.4-10.2)
[2021-06-09] MEDS ORDERED: DICYCLOMINE 20 MG TAB PO ONE (12:44)
[2021-06-09] MEDS ORDERED: MORPHINE 4 MG/1 ML INJ IV ONE (12:44)
[2021-06-09] MEDS ORDERED: FAMOTIDINE 20 MG/2 ML INJ IV ONE (12:44)
--- NOTE | 2021-06-09 13:40 | Emergency Department Report ---
<GIORGI PLAZA - Last Filed: 06/09/21 16:19> ED Abdominal Pain HPI - General Chief Complaint: Abdominal Pain Stated Complaint: VOMITING STOMACH AND BACK PAIN Time Seen by Provider: 06/09/21 12:44 Source: patient Mode of arrival: Ambulatory Limitations: No Limitations - History of Present Illness Initial Comments: This is a 45-year-old female nontoxic, well nourished in appearance, no acute signs of distress presents to the ED with c/o of nausea and vomiting and abdominal pain several days. Patient stated is compliant with her blood pressure medication. Patient stated pain radiates to her back. Patient describes vomiting as food content and yellow gastric acid. Patient describes abdominal pain as cramping and aching with level of 10/10 primarily to epigastric area. Patient denies chest pain, short of breath, fever, hemoptysis, blood in stool, chills, headache, stiff neck, numbness or tingling. Patient denies any diarrhea or constipation. Denies any blood in stool. Patient denies any recent travels. MD Complaint: abdominal pain -: days(s) Location: epigastric Radiation: back Migration to: no migration Severity: mild Severity scale (0 -10): 10 Quality: cramping, aching Consistency: constant Improves With: nothing Worsens With: nothing Associated Symptoms: nausea, vomiting. denies: diarrhea, fever, chills, constipation, dysuria, hematemesis, hematochezia, melena, hematuria, anorexia, syncope - Related Data Home Medications Medication Instructions Recorded Confirmed Last Taken Insulin NPH/Regular 10 unit SUB-Q BID 01/06/21 01/06/21 Unknown Previous Rx's Medication Instructions Recorded Last Taken Type Sucralfate [Carafate] 1 gm PO Q6HR #60 tablet 01/05/21 Unknown Rx Insulin Glargine [Lantus VIAL] 20 units SUB-Q QHS #10 ml 01/08/21 Unknown Rx Pantoprazole [Protonix TAB] 40 mg PO BID #60 tablet 01/08/21 Unknown Rx Promethazine [Phenergan] 25 mg PO Q6HR PRN #30 tab 01/08/21 Unknown Rx amLODIPine 10 mg PO QDAY #30 tablet 01/08/21 Unknown Rx hydrALAZINE [Apresoline TAB] 50 mg PO Q8HR #90 tablet 01/08/21 Unknown Rx Apixaban [Eliquis] 5 mg PO Q12HR #1 tablet 01/20/21 Unknown Rx Insulin Glargine [Lantus VIAL] 20 units SUB-Q QHS #5 pen 01/21/21 Unknown Rx Promethazine [Phenergan] 25 mg PO Q6HR PRN #20 tablet 01/21/21 Unknown Rx hydrALAZINE [Apresoline TAB] 50 mg PO Q8HR #90 tablet 01/21/21 Unknown Rx lisinopriL [Lisinopril] 20 mg PO DAILY #30 01/21/21 Unknown Rx oxyCODONE /ACETAMINOPHEN [Percocet 1 tab PO BID PRN #16 tablet 01/21/21 Unknown Rx 5/325 mg] Promethazine HCl [Phenergan SUPPOS] 25 mg RC Q8HR PRN #12 supp.rect 06/03/21 Unknown Rx Promethazine [Phenergan] 25 mg PO Q8HR PRN #20 tab 06/03/21 Unknown Rx Allergies Allergy/AdvReac Type Severity Reaction Status Date / Time haloperidol [From Haldol] Allergy Unknown Verified 06/09/21 08:01 ketorolac tromethamine Allergy Unknown Verified 06/09/21 08:01 [From Toradol] meperidine HCl [From Demerol] Allergy Shortness Verified 06/09/21 08:01 of Breath Iodinated Contrast Media AdvReac Itching Verified 06/09/21 08:01 ED Review of Systems Comment: All other systems reviewed and negative Constitutional: denies: chills, fever Eyes: denies: eye pain, eye discharge, vision change ENT: denies: ear pain, throat pain Respiratory: denies: cough, shortness of breath, wheezing Cardiovascular: denies: chest pain, palpitations Endocrine: no symptoms reported Gastrointestinal: abdominal pain, nausea, vomiting. denies: diarrhea, constipation, hematemesis, melena, hematochezia Genitourinary: denies: urgency, dysuria, discharge Musculoskeletal: denies: back pain, joint swelling, arthralgia Skin: denies: rash, lesions Neurological: denies: headache, weakness, paresthesias Psychiatric: denies: anxiety, depression Hematological/Lymphatic: denies: easy bleeding, easy bruising ED Past Medical Hx - Past Medical History Hx Hypertension: Yes (Hospitalized in hypertensive crisis 08/28/18) Hx CVA: No Hx Congestive Heart Failure: No Hx Diabetes: Yes Hx Deep Vein Thrombosis: Yes Hx Pulmonary Embolism: Yes (December 2020) Hx GERD: Yes Hx Renal Disease: Yes Hx Arthritis: Yes (All joints) Hx Headaches / Migraines: Yes (Migraines) Hx Psychiatric Treatment: No Hx Asthma: Yes (no recent albuterol use) Hx COPD: No Hx HIV: No Additional medical history: spina bifida, Gastroparesis. 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, - Social History Smoking Status: Never Smoker Substance Use Type: None - Medications Home Medications: Home Medications Medication Instructions Recorded Confirmed Last Taken Type Sucralfate [Carafate] 1 gm PO Q6HR #60 tablet 01/05/21 01/06/21 Unknown Rx Insulin NPH/Regular 10 unit SUB-Q BID 01/06/21 01/06/21 Unknown History Insulin Glargine [Lantus VIAL] 20 units SUB-Q QHS #10 ml 01/08/21 Unknown Rx Pantoprazole [Protonix TAB] 40 mg PO BID #60 tablet 01/08/21 Unknown Rx Promethazine [Phenergan] 25 mg PO Q6HR PRN #30 tab 01/08/21 Unknown Rx amLODIPine 10 mg PO QDAY #30 tablet 01/08/21 Unknown Rx hydrALAZINE [Apresoline TAB] 50 mg PO Q8HR #90 tablet 01/08/21 Unknown Rx Apixaban [Eliquis] 5 mg PO Q12HR #1 tablet 01/20/21 Unknown Rx Insulin Glargine [Lantus VIAL] 20 units SUB-Q QHS #5 pen 01/21/21 Unknown Rx Promethazine [Phenergan] 25 mg PO Q6HR PRN #20 tablet 01/21/21 Unknown Rx hydrALAZINE [Apresoline TAB] 50 mg PO Q8HR #90 tablet 01/21/21 Unknown Rx lisinopriL [Lisinopril] 20 mg PO DAILY #30 01/21/21 Unknown Rx oxyCODONE /ACETAMINOPHEN [Percocet 1 tab PO BID PRN #16 tablet 01/21/21 Unknown Rx 5/325 mg] Promethazine HCl [Phenergan SUPPOS] 25 mg RC Q8HR PRN #12 supp.rect 06/03/21 Unknown Rx Promethazine [Phenergan] 25 mg PO Q8HR PRN #20 tab 06/03/21 Unknown Rx ED Physical Exam - General Limitations: No Limitations General appearance: alert, in no apparent distress - Head Head exam: Present: atraumatic, normocephalic - Eye Eye exam: Present: normal appearance - Neck Neck exam: Present: normal inspection, full ROM. Absent: lymphadenopathy - Respiratory Respiratory exam: Present: normal lung sounds bilaterally. Absent: respiratory distress, wheezes, rales, rhonchi, stridor, chest wall tenderness, accessory muscle use, decreased breath sounds, prolonged expiratory - Cardiovascular Cardiovascular Exam: Present: regular rate, normal rhythm, normal heart sounds. Absent: bradycardia, tachycardia, irregular rhythm, systolic murmur, diastolic murmur, rubs, gallop - GI/Abdominal GI/Abdominal exam: Present: soft, distended, tenderness (diffuse), normal bowel sounds. Absent: guarding, rebound, rigid, diminished bowel sounds - Extremities Exam Extremities exam: Present: normal inspection, full ROM - Back Exam Back exam: Present: normal inspection, full ROM. Absent: tenderness, CVA tenderness (R), CVA tenderness (L), muscle spasm, paraspinal tenderness, vertebral tenderness, rash noted - Neurological Exam Neurological exam: Present: alert, oriented X3, normal gait - Psychiatric Psychiatric exam: Present: normal affect, normal mood - Skin Skin exam: Present: warm, dry, intact, normal color. Absent: rash ED Course - Reevaluation(s) Reevaluation #1: 06/09/21 13:39 Patient is speaking in full sentences with no signs of distress noted. Reevaluation #2: 06/09/21 15:31 IV team awaiting for IV access. Vital signs stable. Patient is rest comfortably. Reevaluation #3: 06/09/21 16:19 AT this time, patient is signed out to VIBHA Oquendo for further evaluation, treatment, and disposition. ED Medical Decision Making - Lab Data Result diagrams: 06/09/21 12:09 06/09/21 12:09 - Medical Decision Making 45-year-old female that presents with abdominal pain, nausea vomiting. Patient is currently stable and was examined by me. Labs has been ordered. CTA of chest and abdomen pending. Pain is currently under control after IV medication. Vital signs are stable. Blood pressure decreased at this time. AT this time, patient is signed out to VIBHA Oquendo for further evaluation, treatment, and disposition. At time of sign out, the patient does not seem toxic or ill in appearance. No acute signs of distress noted. Patient agrees to the ED treatment plan of care. No further questions noted by the patient. - Differential Diagnosis Gastroparesis, dissection, cholecystitis, gastroenteritis ED Disposition Clinical Impression: Abdominal pain Disposition: LEFT AGAINST MEDICAL ADVICE Condition: Stable Instructions: Abdominal Pain (ED) Referrals: PRIMARY CARE, [Primary Care Provider] - 3-5 Days Forms: AMA Form <JAS TINAJERO - Last Filed: 06/09/21 19:52> ED Review of Systems ROS: Stated complaint: VOMITING STOMACH AND BACK PAIN Other details as noted in HPI ED Course Vital Signs 06/09/21 06/09/21 06/09/21 08:06 11:33 11:39 Temperature 98.9 F 99.5 F Pulse Rate 90 104 H Respiratory 24 17 Rate Blood Pressure 214/133 169/104 [Right] O2 Sat by Pulse 100 100 Oximetry 06/09/21 06/09/21 13:30 14:33 Temperature Pulse Rate 107 H Respiratory 22 Rate Blood Pressure 154/97 [Right] O2 Sat by Pulse 100 100 Oximetry ED Medical Decision Making - Lab Data Result diagrams: 06/09/21 12:09 06/09/21 12:09 - Medical Decision Making 17:45 Patient was reassessed at this time she is sleeping comfortably in the ED bed pain is controlled. Waiting on IV team to get a line so patient can go to CTA chest and abdomen. 19:30 Patient decided to leave AGAINST MEDICAL ADVICE. The patient is clinically sober, free from distracting injury, appears to have intact insight and judgment and reason and in my opinion has the capacity to make decisions for herself. The patient presents with Abdominal pain. I have explained my concerns to rule out chest/ abdominal aneurysm/dissection Patient was given fluids and pain control during the ED stay I have asked Patient further testing is required but pt refused refused. I have discussed the need to wait for CTA scan to get more information about potential causes of her abdominal pain. The patient is unwilling to stay and wait to be scanned. Patient is refusing any further care and is leaving against medical advice. Patients r understands leaving AMA produces the risks as follows but not limited worsening of symptoms,could become critically ill, and could possibly become disabled or . Patient verbally understands and still willing to leave AMA and sign paperwork. Critical care attestation.: If time is entered above; I have spent that time in minutes in the direct care of this critically ill patient, excluding procedure time. ED Disposition Is pt being admited?: No Does the pt Need Aspirin: No
[2021-06-09 14:34] VITALS: BP 154/97
[2021-06-09] MEDS ORDERED: HYOSCYAMINE SUBL 0.125 MG TAB SL SCH (16:00)
[2021-06-09] MEDS ORDERED: METOCLOPRAMIDE 10 MG/2 ML INJ IV SCH (16:00)
[2021-06-09] MEDS ORDERED: DICYCLOMINE 20 MG TAB PO SCH (16:00)
[2021-06-09] MEDS ORDERED: MORPHINE 4 MG/1 ML INJ IV SCH (16:00)
[2021-06-09] MEDS ORDERED: FAMOTIDINE 20 MG/2 ML INJ IV SCH (16:00)
[2021-06-09] MEDS ORDERED: diphenhydrAMINE 50 MG/ML VIAL IV ONE (16:13)
[2021-06-09 17:07] LABS: INR 1.08 (0.87-1.13)
[2021-06-09 17:08] LABS: Partial Thromboplastin Time 32.3 Sec. (24.2-36.6)
--- NOTE | 2021-06-10 10:16 | Electrocardiograph Report ---
[facility] Test Date: 2021-06-09 Test Time: 14:17:49 Pat Name: YULIA DAVIS Department: Room: Gender: F Community Services Manager: BHAVANI : 1975 Requested By: GIORGI PLAZA Order Number: [id number] Reading MD: Reyes Bolanos Measurements Intervals [place] Rate: 108 P: 45 SD: 153 QRS: 2 QRSD: 84 T: 56 QT: 368 QTc: 494 Interpretive Statements Sinus tachycardia Probable left atrial enlargement ABNORMAL BASELINE. [id number] Compared to ECG 02/11/2021 14:04:09 No significant changes Electronically Signed On 06-10-2021 10:15:41 EDT by Reyes Bolanos
== END 2021-06-09 19:23 | disposition left against medical advice (07) ==
LOC: ED 07:48
DX: R10.13 Epigastric pain (principal); I10 Essential (primary) hypertension; E11.8 Type 2 diabetes mellitus with unspecified complications; I82.409 Acute embolism and thrombosis of unspecified deep veins of unspecified lower extremity; I26.99 Other pulmonary embolism without acute cor pulmonale; K21.9 Gastro-esophageal reflux disease without esophagitis; N28.9 Disorder of kidney and ureter, unspecified; M19.90 Unspecified osteoarthritis, unspecified site; G43.909 Migraine, unspecified, not intractable, without status migrainosus; J45.909 Unspecified asthma, uncomplicated; K31.84 Gastroparesis; E66.01 Morbid (severe) obesity due to excess calories; Z98.890 Other specified postprocedural states; Z88.5 Allergy status to narcotic agent; Z88.6 Allergy status to analgesic agent; Z88.8 Allergy status to other drugs, medicaments and biological substances; Z91.041 Radiographic dye allergy status
CPT/HCPCS: 36415; 80053; 81001; 82962; 83690; 83735; 84484; 85025; 85610; 85730; 87086; 93005; 96361; 96374; 96375; 99284; J1200; J2270; J2765; J7030

== ENCOUNTER 2021-07-14 09:54 | Emergency (ER) | payer MEDICAID ==
[2021-07-14] MEDS ORDERED: ONDANSETRON 4 MG/2 ML INJ IV ONE (10:17)
[2021-07-14] MEDS ORDERED: fentaNYL 100 MCG/2 ML INJ IV ONE (10:17)
[2021-07-14] MEDS ORDERED: diphenhydrAMINE 50 MG/ML VIAL IV ONE (10:18)
[2021-07-14] MEDS ORDERED: SODIUM CHLORIDE 0.9% 1000 ML 1,000 ML IV ONE (10:19)
--- NOTE | 2021-07-14 10:23 | Emergency Department Report ---
HPI - General Chief Complaint: Abdominal Pain Time Seen by Provider: 07/14/21 10:11 - HPI HPI: Room 7 The patient is a 45-year-old female present with a chief complaint of abdominal pain. Patient states for the past 2 days she has had a constant diffuse abdominal and diffuse back pain. Patient admits to nausea and vomiting. Patient states she had a similar episode last month but this episode feels worse. Patient denies history of fever. Patient denies dysuria or hematuria. Patient came by ambulance. The patient gives her pain a score of 10/10 ED Past Medical Hx - Past Medical History Hx Hypertension: Yes (Hospitalized in hypertensive crisis 08/28/18) Hx Diabetes: Yes Hx Deep Vein Thrombosis: Yes Hx Pulmonary Embolism: Yes (December 2020) Hx GERD: Yes Hx Renal Disease: Yes Hx Arthritis: Yes (All joints) Hx Headaches / Migraines: Yes (Migraines) Hx Asthma: Yes (no recent albuterol use) Additional medical history: spina bifida, Gastroparesis. 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, - Family History Family history: no significant - Social History Smoking Status: Never Smoker Substance Use Type: None (Denies illicit drug use) - Medications Home Medications: Home Medications Medication Instructions Recorded Confirmed Last Taken Type Insulin NPH/Regular 10 unit SUB-Q BID 01/06/21 07/14/21 Unknown History Pantoprazole [Protonix TAB] 40 mg PO BID #60 tablet 01/08/21 07/14/21 Unknown Rx amLODIPine 10 mg PO QDAY #30 tablet 01/08/21 07/14/21 Unknown Rx Apixaban [Eliquis] 5 mg PO Q12HR #1 tablet 01/20/21 07/14/21 Unknown Rx Insulin Glargine [Lantus VIAL] 20 units SUB-Q QHS #5 pen 01/21/21 07/14/21 Unknown Rx Promethazine [Phenergan] 25 mg PO Q8HR PRN #20 tab 06/03/21 07/14/21 Unknown Rx Fluconazole [Diflucan TAB] 200 mg PO QDAY #1 tablet 07/14/21 Unknown Rx HYDROcodone/APAP 5-325 [[place] 1 - 2 each PO Q6HR PRN #10 tablet 07/14/21 Unknown Rx 5/325] Metoclopramide [Reglan] 10 mg PO TID PRN #30 tab 07/14/21 Unknown Rx Promethazine [Phenergan] 25 mg PO Q6HR PRN #20 tab 07/14/21 Unknown Rx Promethazine [Phenergan] 25 mg [place] Q6HR PRN #5 supp.rect 07/14/21 Unknown Rx levoFLOXacin [Levaquin TAB] 500 mg PO QDAY #7 tablet 07/14/21 Unknown Rx oxyCODONE /ACETAMINOPHEN [Percocet 10 tab PO BID PRN 07/14/21 07/14/21 Unknown History 5/325 mg] ED Review of Systems ROS: Stated complaint: NAUSEA/VOMITING Other details as noted in HPI Constitutional: denies: fever Eyes: denies: eye pain ENT: denies: throat pain Respiratory: no symptoms reported Cardiovascular: denies: chest pain Endocrine: no symptoms reported Gastrointestinal: abdominal pain, nausea, vomiting Genitourinary: denies: dysuria, hematuria Musculoskeletal: back pain Neurological: denies: headache Physical Exam - Physical Exam Vital Signs: Vital Signs 07/14/21 07/14/21 10:10 10:18 Temperature 99.1 F Pulse Rate 109 H 113 H Respiratory 24 Rate Blood Pressure 224/123 [Left] O2 Sat by Pulse 95 Oximetry Vital Signs 07/14/21 07/14/21 07/14/21 10:10 10:18 11:01 Temperature 99.1 F Pulse Rate 109 H 113 H 112 H Respiratory 24 20 Rate Blood Pressure 224/123 Blood Pressure 224/123 [Left] O2 Sat by Pulse 95 100 Oximetry 07/14/21 07/14/21 07/14/21 11:29 11:31 11:35 Temperature Pulse Rate 107 H 110 H 104 H Respiratory 17 18 14 Rate Blood Pressure 224/123 224/123 210/127 Blood Pressure [Left] O2 Sat by Pulse 100 100 100 Oximetry 07/14/21 07/14/21 07/14/21 11:41 12:11 12:23 Temperature Pulse Rate 101 H 108 H 106 H Respiratory 17 20 15 Rate Blood Pressure 210/127 193/119 Blood Pressure 181/115 [Left] O2 Sat by Pulse 100 99 100 Oximetry 07/14/21 07/14/21 07/14/21 12:39 13:31 14:11 Temperature Pulse Rate 106 H 99 H 103 H Respiratory 12 12 18 Rate Blood Pressure 189/97 207/123 Blood Pressure 164/119 [Left] O2 Sat by Pulse 100 100 81 L Oximetry 07/14/21 07/14/21 07/14/21 14:26 15:24 15:38 Temperature Pulse Rate 104 H 104 H 102 H Respiratory 12 Rate Blood Pressure 211/105 Blood Pressure 209/112 224/126 [Left] O2 Sat by Pulse 96 Oximetry 07/14/21 07/14/21 15:43 15:44 Temperature Pulse Rate Respiratory Rate Blood Pressure Blood Pressure 189/91 [Left] O2 Sat by Pulse 100 Oximetry Physical Exam: GENERAL: The patient is well-developed well-nourished female lying on stretcher writhing in discomfort. [] HEENT: Normocephalic. Atraumatic. Extraocular motions are intact. Patient has moist mucous membranes. NECK: Supple. Trachea midline CHEST/LUNGS: Clear to auscultation. There is no respiratory distress noted. HEART/CARDIOVASCULAR: Regular. There is tachycardia. There is no gallop rub or murmur. ABDOMEN: Abdomen is soft, with diffuse discomfort to palpation. There is no rebound or guarding. Patient has normal bowel sounds. There is no abdominal distention. SKIN: There is no rash. There is no edema. There is no diaphoresis. NEURO: The patient is awake, alert, and oriented. The patient is cooperative. The patient has no focal neurologic deficits. The patient has normal speech MUSCULOSKELETAL: There is no evidence of acute injury. ED Course Vital Signs 07/14/21 07/14/21 10:10 10:18 Temperature 99.1 F Pulse Rate 109 H 113 H Respiratory 24 Rate Blood Pressure 224/123 [Left] O2 Sat by Pulse 95 Oximetry - Reevaluation(s) Reevaluation #1: 07/14/21 15:56 Patient tolerating p.o. - EJ/Peripheral Line Neck L Time Out Performed: No Indications: nurses unable to establis Skin Cleansed in Sterile Fashion: Yes Size: 20 Dressing Placed: Tegaderm, tape Patient Tolerated Procedure: well ED Medical Decision Making - Lab Data Result diagrams: 07/14/21 10:28 07/14/21 10:28 Laboratory Tests 0907/14/21 07/14/21 10:28 10:28 10:28 WBC 5.9 RBC 3.36 L Hgb 10.6 Hct 32.3 MCV 96 MCH 31 MCHC 33 RDW 16.7 H Plt Count 291 Lymph % (Auto) 15.4 [place] % (Auto) 4.3 Eos % (Auto) 0.0 Baso % (Auto) 0.3 Lymph # (Auto) 0.9 L [place] # (Auto) 0.3 Eos # (Auto) 0.0 Baso # (Auto) 0.0 Seg Neutrophils % 80.0 H Seg Neutrophils # 4.7 Sodium 143 Potassium 3.7 Chloride 105.0 Carbon Dioxide 19 L Anion Gap 23 BUN 25 H Creatinine 1.3 H Estimated GFR 54 BUN/Creatinine Ratio 19 Glucose 249 H POC Glucose Calcium 9.6 Total Bilirubin 0.20 AST 24 ALT 14 Alkaline Phosphatase 140 H Total Protein 8.8 H Albumin 4.5 Albumin/Globulin Ratio 1.0 Lipase 17 HCG, Qual Urine Color Urine Turbidity Urine pH Ur Specific [place] Urine Protein Urine Glucose (UA) Urine Ketones Urine Blood Urine Nitrite Urine Bilirubin Urine Urobilinogen Ur Leukocyte Esterase Urine WBC (Auto) Urine RBC (Auto) U Epithel Cells (Auto) Urine Mucus Urine Yeast (Budding) 07/14/21 07/14/21 07/14/21 10:28 14:37 Unknown WBC RBC Hgb Hct MCV MCH MCHC RDW Plt Count Lymph % (Auto) [place] % (Auto) Eos % (Auto) Baso % (Auto) Lymph # (Auto) [place] # (Auto) Eos # (Auto) Baso # (Auto) Seg Neutrophils % Seg Neutrophils # Sodium Potassium Chloride Carbon Dioxide Anion Gap BUN Creatinine Estimated GFR BUN/Creatinine Ratio Glucose POC Glucose 149 H Calcium Total Bilirubin AST ALT Alkaline Phosphatase Total Protein Albumin Albumin/Globulin Ratio Lipase HCG, Qual Negative Urine Color Yellow Urine Turbidity Slightly-cloudy Urine pH 5.0 Ur Specific [place] 1.018 Urine Protein 30 mg/dl Urine Glucose (UA) 150 Urine Ketones Neg Urine Blood Sm Urine Nitrite Neg Urine Bilirubin Neg Urine Urobilinogen < 2.0 Ur Leukocyte Esterase Lg Urine WBC (Auto) 9.0 H Urine RBC (Auto) 7.0 U Epithel Cells (Auto) 20.0 H Urine Mucus Few Urine Yeast (Budding) 3+ - Radiology Data Radiology results: report reviewed (CT abdomen pelvis), image reviewed (CT abdomen pelvis) [facility] [address] [place] [address] Cat Scan Report Signed Patient: YULIA ZULETA MR#: [id number] : 1975 Acct:[id number] Age/Sex: 45 / F ADM Date: 07/14/21 Loc: ED Attending Dr: Ordering Physician: LIBIA BEAL MD Date of Service: 07/14/21 Proc edure(s): CT abdomen pelvis wo con Accession Number(s): [id number] cc: LIIBA BEAL MD CT ABDOMEN AND PELVIS WITHOUT CONTRAST HISTORY: Diffuse abdominal and back pain. Nausea vomiting. COMPARISON: CT abdomen/pelvis from 01/05/2021 TECHNIQUE: CT images of the abdomen and pelvis were obtained without administration of intravenous contrast. All CT scans at this location are performed using CT dose reduction for ALARA by means of automated exposure control. FINDINGS: Lungs/bones: Lung bases are clear. There are degenerative changes in the spine and pelvis with no acute osseous abnormality identified. Abdomen/pelvis: The gallbladder is surgically absent. The liver, spleen, pancreas, adrenals, and pro ximal GI tract are unremarkable. There is nonobstructive nephrolithiasis in the upper pole left measuring 5 mm, unchanged. Kidneys otherwise appear unremarkable. Urinary bladder is mildly distended but otherwise unremarkable. The reproductive organs are unremarkable. No pelvic free fluid. No acute colonic abnormality identified. Old postoperative change seen in the abdomen in the midline and over the right lower quadrant region where there is a small subcutaneous nodule likely representing an area of old scarring or perhaps an ostomy site. IMPRESSION: 1. No acute abnormality identified. 2. Inc idental/postoperative findings as above. Signer Name: Vincenzo Ospina MD Signed: 07/14/2021 11:45 AM Workstation Name: [id number] Transcribed By: JW Dictated By: Vincenzo Ospina MD Electronically Authenticated By: Vincenzo Ospina MD Signed Date/Time: 07/14/21 1145 DD/ 1142 TD/TT: Print Cancel - Differential Diagnosis Gastroparesis, small bowel obstruction, pyelonephritis, UTI, gastritis Critical care attestation.: If time is entered above; I have spent that time in minutes in the direct care of this critically ill patient, excluding procedure time. ED Disposition Clinical Impression: Acute abdominal pain, Gastroparesis, UTI (urinary tract infection), Candidiasis Disposition: 01 HOME / SELF CARE / HOMELESS Is pt being admited?: No Does the pt Need Aspirin: No Condition: Stable Instructions: Abdominal Pain (ED), Abdominal Pain, Adult Additional Instructions: Return to the emergency department should you develop worsening symptoms, inability to tolerate food or liquids, high fever or any other concerns Prescriptions: Fluconazole [Diflucan TAB] 200 mg PO QDAY #1 tablet levoFLOXacin [Levaquin TAB] 500 mg PO QDAY #7 tablet HYDROcodone/APAP 5-325 [[place] 5/325] 1 - 2 each PO Q6HR PRN #10 tablet PRN Reason: Pain Promethazine [Phenergan] 25 mg PO Q6HR PRN #20 tab PRN Reason: Nausea Promethazine [Phenergan] 25 mg OK Q6HR PRN #5 supp.rect PRN Reason: Vomiting Metoclopramide [Reglan] 10 mg PO TID PRN #30 tab PRN Reason: Nausea Referrals: PRIMARY CARE, [Primary Care Provider] - 3-5 Days GARY OROPEZA MD [Staff Physician] - 3-5 Days (Dr. Oropeza is a stagecraft professor. Please follow-up with him for further evaluation) Time of Disposition: 15:56
[2021-07-14 11:05] LABS: Basophils % (Auto) 0.3 % (0.0-1.8); Hematocrit 32.3 % (30.3-42.9); Hemoglobin 10.6 gm/dl (10.1-14.3); Lymphocytes # (Auto) 0.9 K/mm3 (1.2-5.4); Lymphocytes % (Auto) 15.4 % (13.4-35.0); Mean Corpuscular HGB Conc 33 % (30-34); Mean Corpuscular Volume 96 fl (79-97); Monocytes # (Auto) 0.3 K/mm3 (0.0-0.8); Monocytes % (Auto) 4.3 % (0.0-7.3); Platelet Count 291 K/mm3 (140-440); Red Blood Count 3.36 M/mm3 (3.65-5.03); Red Cell Distribution Width 16.7 % (13.2-15.2)
[2021-07-14 11:17] LABS: Albumin 4.5 g/dL (3.9-5); Calcium 9.6 mg/dL (8.4-10.2)
--- NOTE | 2021-07-14 11:49 | Cat Scan Report ---
CT ABDOMEN AND PELVIS WITHOUT CONTRAST HISTORY: Diffuse abdominal and back pain. Nausea vomiting. COMPARISON: CT abdomen/pelvis from 01/05/2021 TECHNIQUE: CT images of the abdomen and pelvis were obtained without administration of intravenous co ntrast. All CT scans at this location are performed using CT dose reduction for ALARA by means of au tomated exposure control. FINDINGS: Lungs/bones: Lung bases are clear. There are degenerative changes in the spine and pelvis with no [place] osseous abnormality identified. Abdomen/pelvis: The gallbladder is surgically absent. The liver, spleen, pancreas, adrenals, and pro ximal GI tract are unremarkable. There is nonobstructive nephrolithiasis in the upper pole left measuring 5 mm, unchanged. Kidneys oth erwise appear unremarkable. Urinary bladder is mildly distended but otherwise unremarkable. The reproductive organs are unremarka ble. No pelvic free fluid. No acute colonic abnormality identified. Old postoperative change seen in the abdomen in the midline and over the right lower quadrant region where there is a small subcutaneo us nodule likely representing an area of old scarring or perhaps an ostomy site. IMPRESSION: 1. No acute abnormality identified. 2. Incidental/postoperative findings as above. Signer Name: Vincenzo Ospina MD Signed: 07/14/2021 11:45 AM Workstation Name: [id number]
[2021-07-14] MEDS ORDERED: cloNIDine 0.2 MG TAB PO ONE ×2 (11:54→14:19)
[2021-07-14] MEDS ORDERED: HYDROmorphone 1 MG/1 ML INJ IM ONE (11:54)
[2021-07-14] MEDS ORDERED: METOCLOPRAMIDE 10 MG/2 ML INJ IV ONE (12:24)
[2021-07-14 13:08] LABS: Bilirubin,Urine NEG (Negative); Blood,Urine SM (Negative); Color,Urine Yellow (Yellow); Mucus,Urine FEW /HPF; Urobilinogen,Urine < 2.0 mg/dL (<2.0)
[2021-07-14] MEDS ORDERED: HYDROmorphone 1 MG/1 ML INJ IV ONE (15:09)
[2021-07-14 16:27] VITALS: BP 188/96
== END 2021-07-14 16:28 | disposition home or self-care (01) ==
LOC: ED 09:54
DX: N39.0 Urinary tract infection, site not specified (principal); K31.84 Gastroparesis; B37.9 Candidiasis, unspecified; I10 Essential (primary) hypertension; E11.9 Type 2 diabetes mellitus without complications; I82.409 Acute embolism and thrombosis of unspecified deep veins of unspecified lower extremity; I26.99 Other pulmonary embolism without acute cor pulmonale; K21.9 Gastro-esophageal reflux disease without esophagitis; M19.90 Unspecified osteoarthritis, unspecified site; G43.909 Migraine, unspecified, not intractable, without status migrainosus; J45.909 Unspecified asthma, uncomplicated; Z98.890 Other specified postprocedural states
CPT/HCPCS: 36415; 36556; 74176; 80053; 81001; 82962; 83690; 84703; 85025; 87086; 96361; 96372; 96374; 96375; 99284; J1170; J1200; J2405; J2765; J3010; J7030

== ENCOUNTER 2021-08-11 09:21 | Inpatient (IN) | payer MEDICAID ==
--- NOTE | 2021-08-11 09:43 | Emergency Department Report ---
ED Abdominal Pain HPI - General Stated Complaint: NAUSEA/VOMITING PUI?: No Time Seen by Provider: 08/11/21 09:31 Source: patient Mode of arrival: Stretcher Limitations: No Limitations - History of Present Illness Initial Comments: Chief complaint: Vomiting abdominal pain HPI: This is a 45-year-old female with history of diabetes mellitus, hypertension, chronic kidney disease, CHF, spina bifida, obesity hypoventilation syndrome, chronic abdominal pain, gastroparesis, pulmonary embolism who presents with abdominal pain for 2 days with nausea vomiting. Generalized abdominal pain at a 10 achy pain. Constant. Patient normally takes Percocet for chronic back pain due to spinal bifida. She no longer has this medication. According to electronic medical record patient had CT abdomen pelvis without contrast obtained July 14, 2021: No acute abnormality identified at that time of note patient has had 12 CT scans of the abdomen pelvis at this facility from [id number]. CT scans of abdomen pelvis obtained November, December, June of this year were all unremarkable. MD Complaint: abdominal pain -: Gradual, days(s) (2 days) Location: diffuse Quality: aching Consistency: constant Improves With: nothing Worsens With: nothing Associated Symptoms: nausea, vomiting - Related Data Home Medications Medication Instructions Recorded Confirmed Last Taken Insulin NPH/Regular 10 unit SUB-Q BID 01/06/21 07/14/21 Unknown Previous Rx's Medication Instructions Recorded Last Taken Type Pantoprazole [Protonix TAB] 40 mg PO BID #60 tablet 01/08/21 Unknown Rx amLODIPine 10 mg PO QDAY #30 tablet 01/08/21 Unknown Rx Apixaban [Eliquis] 5 mg PO Q12HR #1 tablet 01/20/21 Unknown Rx Insulin Glargine [Lantus VIAL] 20 units SUB-Q QHS #5 pen 01/21/21 Unknown Rx Metoclopramide [Reglan TAB] 10 mg PO TID PRN #30 tab 08/13/21 Unknown Rx Allergies Allergy/AdvReac Type Severity Reaction Status Date / Time haloperidol [From Haldol] Allergy Unknown Verified 08/11/21 11:05 ketorolac tromethamine Allergy Unknown Verified 08/11/21 11:05 [From Toradol] meperidine HCl [From Demerol] Allergy Shortness Verified 08/11/21 11:05 of Breath Iodinated Contrast Media AdvReac Itching Verified 08/11/21 11:05 ED Review of Systems ROS: Stated complaint: NAUSEA/VOMITING Other details as noted in HPI Comment: All other systems reviewed and negative Constitutional: denies: fever, malaise Respiratory: denies: cough, shortness of breath ED Past Medical Hx - Past Medical History Previous Medical History?: Yes Hx Hypertension: Yes (Hospitalized in hypertensive crisis 08/28/18) Hx CVA: No Hx Congestive Heart Failure: No Hx Diabetes: Yes Hx Deep Vein Thrombosis: Yes Hx Pulmonary Embolism: Yes (December 2020) Hx GERD: Yes Hx Renal Disease: Yes Hx Arthritis: Yes (All joints) Hx Headaches / Migraines: Yes (Migraines) Hx Psychiatric Treatment: No Hx Asthma: Yes (no recent albuterol use) Hx COPD: No Hx HIV: No Additional medical history: spina bifida, Gastroparesis. 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, - Social History Smoking Status: Never Smoker Substance Use Type: None (Denies illicit drug use) - Medications Home Medications: Home Medications Medication Instructions Recorded Confirmed Last Taken Type Insulin NPH/Regular 10 unit SUB-Q BID 01/06/21 07/14/21 Unknown History Pantoprazole [Protonix TAB] 40 mg PO BID #60 tablet 01/08/21 07/14/21 Unknown Rx amLODIPine 10 mg PO QDAY #30 tablet 01/08/21 07/14/21 Unknown Rx Apixaban [Eliquis] 5 mg PO Q12HR #1 tablet 01/20/21 07/14/21 Unknown Rx Insulin Glargine [Lantus VIAL] 20 units SUB-Q QHS #5 pen 01/21/21 07/14/21 Unknown Rx Metoclopramide [Reglan TAB] 10 mg PO TID PRN #30 tab 08/13/21 Unknown Rx ED Physical Exam - General Limitations: No Limitations General appearance: alert, in no apparent distress - Head Head exam: Present: atraumatic, normocephalic - Eye Eye exam: Present: normal appearance - ENT ENT exam: Present: mucous membranes moist, other (Edentulous) - Neck Neck exam: Present: normal inspection, full ROM - Respiratory Respiratory exam: Present: normal lung sounds bilaterally. Absent: respiratory distress, wheezes, rales, rhonchi - Cardiovascular Cardiovascular Exam: Present: regular rate, normal rhythm, normal heart sounds. Absent: systolic murmur, diastolic murmur, rubs, gallop - GI/Abdominal GI/Abdominal exam: Present: soft, normal bowel sounds. Absent: distended, tenderness, guarding, rebound - Extremities Exam Extremities exam: Present: normal inspection - Neurological Exam Neurological exam: Present: alert, oriented X3 - Psychiatric Psychiatric exam: Present: normal affect, normal mood - Skin Skin exam: Present: warm, dry, intact, normal color. Absent: rash ED Course Vital Signs 08/11/21 08/11/21 08/11/21 09:38 09:46 10:00 Pulse Rate 107 H 108 H 102 H Respiratory 11 L 18 Rate Blood Pressure 187/104 207/111 O2 Sat by Pulse 100 100 Oximetry 08/11/21 08/11/21 08/11/21 10:16 10:30 10:46 Pulse Rate 108 H 105 H 109 H Respiratory 14 18 17 Rate Blood Pressure 187/104 187/104 207/111 O2 Sat by Pulse 100 100 99 Oximetry 08/11/21 08/11/21 08/11/21 11:00 11:04 11:11 Pulse Rate 116 H Respiratory 15 18 18 Rate Blood Pressure 210/169 O2 Sat by Pulse 100 99 Oximetry 08/11/21 08/11/21 08/11/21 11:16 11:30 11:35 Pulse Rate 117 H 122 H Respiratory 15 19 18 Rate Blood Pressure 210/169 154/101 O2 Sat by Pulse 100 98 Oximetry 08/11/21 08/11/21 08/11/21 11:46 12:16 12:46 Pulse Rate 101 H 125 H 120 H Respiratory 21 11 L 14 Rate Blood Pressure 154/101 172/95 161/95 O2 Sat by Pulse 97 100 100 Oximetry 08/11/21 08/11/21 08/11/21 13:00 13:46 14:16 Pulse Rate 107 H 103 H 115 H Respiratory 10 L 16 10 L Rate Blood Pressure 164/113 164/113 153/105 O2 Sat by Pulse 69 L Oximetry 08/11/21 08/11/21 08/11/21 14:30 14:46 15:00 Pulse Rate 102 H 107 H 102 H Respiratory 11 L 10 L 11 L Rate Blood Pressure 172/153 172/153 183/158 O2 Sat by Pulse 77 L 78 L 79 L Oximetry 08/11/21 08/11/21 08/11/21 15:16 15:30 15:46 Pulse Rate 99 H 92 H 94 H Respiratory 27 H 17 23 Rate Blood Pressure 183/158 142/83 142/83 O2 Sat by Pulse 77 L 82 L 81 L Oximetry 08/11/21 08/11/21 08/11/21 16:00 16:16 16:31 Pulse Rate 108 H 109 H 117 H Respiratory 12 16 Rate Blood Pressure 182/100 182/100 173/103 O2 Sat by Pulse 87 Oximetry 08/11/21 08/11/21 08/11/21 17:00 17:16 17:30 Pulse Rate 114 H 113 H 97 H Respiratory 14 14 16 Rate Blood Pressure 135/86 135/86 125/91 O2 Sat by Pulse 68 L Oximetry 08/11/21 08/11/21 08/11/21 17:46 18:01 18:15 Pulse Rate 93 H 99 H 112 H Respiratory 19 14 11 L Rate Blood Pressure 125/91 125/91 O2 Sat by Pulse 65 L 65 L Oximetry 08/11/21 08/11/21 08/11/21 18:31 18:45 19:01 Pulse Rate 115 H 114 H 116 H Respiratory 11 L 15 10 L Rate Blood Pressure 178/132 178/132 136/114 O2 Sat by Pulse 80 L 71 L Oximetry 08/11/21 08/11/21 08/11/21 19:15 19:31 19:45 Pulse Rate 113 H 114 H 109 H Respiratory 15 19 10 L Rate Blood Pressure 136/114 146/120 146/120 O2 Sat by Pulse 86 Oximetry 08/11/21 08/11/21 08/11/21 20:01 20:15 20:31 Pulse Rate 100 H 97 H 96 H Respiratory 20 21 28 H Rate Blood Pressure 157/106 157/106 161/88 O2 Sat by Pulse Oximetry 08/11/21 08/11/21 08/11/21 20:45 21:01 21:11 Pulse Rate 110 H 116 H 111 H Respiratory 10 L 12 10 L Rate Blood Pressure 161/88 172/141 172/141 O2 Sat by Pulse 30 L 81 L Oximetry 08/11/21 08/11/21 08/11/21 21:21 21:31 21:41 Pulse Rate 108 H 110 H 107 H Respiratory 14 12 12 Rate Blood Pressure 181/153 181/153 181/153 O2 Sat by Pulse Oximetry ED Medical Decision Making - Lab Data Result diagrams: 08/13/21 09:39 08/13/21 09:39 - Medical Decision Making 45-year-old female history of diabetes mellitus, hypertension, chronic kidney disease, CHF who presents with persistent abdominal pain intractable nausea vomiting in spite Multiple medications including IV morphine IV Zofran in emergency department. Patient has history of opioid dependence. She takes Percocet prescribed by PCP. He is looking for pain management physician since Percocet is no longer working. She has run out of this medication. I suspect element of opioid withdrawal. 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 Patient was taking Dilaudid at that time.In December of this year patient was evaluated by chalk tester at this facility for recurrent abdominal pain without discrete cause. Patient reports diabetic gastroparesis.. Patient admitted to hospital service. Critical care attestation.: If time is entered above; I have spent that time in minutes in the direct care of this critically ill patient, excluding procedure time. ED Disposition Clinical Impression: Diabetic gastroparesis, Intractable abdominal pain, Intractable nausea and vomiting Disposition: ADMITTED INPATIENT Is pt being admited?: Yes Does the pt Need Aspirin: No Condition: Stable
[2021-08-11] MEDS ORDERED: ONDANSETRON 4 MG ODT TAB PO ONE (09:50)
[2021-08-11] MEDS ORDERED: MORPHINE 4 MG/1 ML INJ IM ONE (09:51)
[2021-08-11 10:32] LABS: Basophils % (Auto) 0.1 % (0.0-1.8); Eosinophils % (Auto) 0.3 % (0.0-4.3); Hematocrit 32.7 % (30.3-42.9); Hemoglobin 10.8 gm/dl (10.1-14.3); Lymphocytes # (Auto) 0.9 K/mm3 (1.2-5.4); Lymphocytes % (Auto) 13.4 % (13.4-35.0); Mean Corpuscular HGB Conc 33 % (30-34); Mean Corpuscular Volume 95 fl (79-97); Monocytes # (Auto) 0.3 K/mm3 (0.0-0.8); Platelet Count 400 K/mm3 (140-440); Red Blood Count 3.46 M/mm3 (3.65-5.03); Red Cell Distribution Width 18.2 % (13.2-15.2)
[2021-08-11 10:49] LABS: Albumin 4.6 g/dL (3.9-5); Calcium 10.5 mg/dL (8.4-10.2)
[2021-08-11] MEDS ORDERED: ONDANSETRON 4 MG/2 ML INJ IV ONE (10:54)
[2021-08-11] MEDS ORDERED: MORPHINE 4 MG/1 ML INJ IV ONE ×2 (10:54→11:14)
[2021-08-11] MEDS ORDERED: diphenhydrAMINE 50 MG/ML VIAL IV ONE (11:36)
[2021-08-11] MEDS ORDERED: PANTOPRAZOLE 40 MG INJ IV ONE (12:24)
[2021-08-11] MEDS ORDERED: METOCLOPRAMIDE 10 MG/2 ML INJ IV ONE (12:24)
--- NOTE | 2021-08-11 14:33 | History and Physical Report ---
History of Present Illness Date of examination: 08/11/21 Date of admission: 08/11/21 12:21 Chief complaint: Persistent nausea and vomiting for 3 days associated with abdominal pain History of present illness: 45-year-old female with history of insulin-dependent diabetes, gastroparesis, hypertension, chronic kidney disease, CHF, spinal Bifera, obesity and hypoventil ation syndrome comes in for vomiting of 3 days duration no associated abdominal pain. Vomiting 4-5 times a day. Also abdominal pain is intermittent and about 8 on a scale of 1-10. Pain is sharp in nature. Food is a exacerbating factor. Not taking any food is a relieving factor. Patient states that she is compliant with her insulin. Patient is on short acting and long-acting insulin. No fever or chills. No diarrhea. Patient had a CT of the abdomen on July 14, 2021 which is near normal. Patient had about 12 CAT scans of abdomen from through July 2021. - Past Medical History --Previous Medical History?: Yes --Hypertension: Yes (Hospitalized in hypertensive crisis 08/28/ --Diabetes: Yes --Deep Vein Thrombosis: Yes --Pulmonary Embolism: Yes (December 2020) --GERD: Yes --Renal Disease: Yes --Arthritis: Yes (All joints) --Headaches / Migraines: Yes (Migraines) --Asthma: Yes (no recent albuterol use) --Additional medical history: spina bifida, Gastroparesis. 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, - Social History --Smoking Status: Never Smoker --Substance Use Type: None (Denies illicit drug use) Family history --Htn - Medications Home Medications: Home Medications Medication Instructions Recorded Confirmed Last Taken Type Insulin NPH/Regular 10 unit SUB-Q BID 01/06/21 07/14/21 Unknown History Pantoprazole [Protonix TAB] 40 mg PO BID #60 tablet 01/08/21 07/14/21 Unknown Rx amLODIPine 10 mg PO QDAY #30 tablet 01/08/21 07/14/21 Unknown Rx Apixaban [Eliquis] 5 mg PO Q12HR #1 tablet 01/20/21 07/14/21 Unknown Rx Insulin Glargine [Lantus VIAL] 20 units SUB-Q QHS #5 pen 01/21/21 07/14/21 Unknown Rx Promethazine [Phenergan] 25 mg PO Q8HR PRN #20 tab 06/03/21 07/14/21 Unknown Rx Fluconazole [Diflucan TAB] 200 mg PO QDAY #1 tablet 07/14/21 Unknown Rx HYDROcodone/APAP 5-325 [[place] 1 - 2 each PO Q6HR PRN #10 tablet 07/14/21 Unknown Rx 5/325] Metoclopramide [Reglan] 10 mg PO TID PRN #30 tab 07/14/21 Unknown Rx Promethazine [Phenergan] 25 mg PO Q6HR PRN #20 tab 07/14/21 Unknown Rx Promethazine [Phenergan] 25 mg [place] Q6HR PRN #5 supp.rect 07/14/21 Unknown Rx levoFLOXacin [Levaquin TAB] 500 mg PO QDAY #7 tablet 07/14/21 Unknown Rx oxyCODONE /ACETAMINOPHEN [Percocet 10 tab PO BID PRN 07/14/21 07/14/21 Unknown History 5/325 mg] Review of Systems ROS: Constitutional no weight loss or weight gain no fever or chills HEENT no sore throat no post nasal drip no diplopia Neck no neck stiffness no lymph gland enlargement Chest and lungs no shortness of breath cough or wheezing CVS no chest pain no diaphoresis no palpitations GI persistent vomiting and abdominal pain for 3 days Genitourinary system no dysuria no flank pain Musculoskeletal system no muscle pains no joint pains [employer] no syncope no seizures Skin no rash no itching Psychiatric no depression no homicidal or suicidal tendencies Hematologic no lymphedema or bruising Endocrine no polydipsia no polyuria no cold intolerance no heat intolerance Medications and Allergies Allergies Allergy/AdvReac Type Severity Reaction Status Date / Time haloperidol [From Haldol] Allergy Unknown Verified 08/11/21 11:05 ketorolac tromethamine Allergy Unknown Verified 08/11/21 11:05 [From Toradol] meperidine HCl [From Demerol] Allergy Shortness Verified 08/11/21 11:05 of Breath Iodinated Contrast Media AdvReac Itching Verified 08/11/21 11:05 Home Medications Medication Instructions Recorded Confirmed Last Taken Type Insulin NPH/Regular 10 unit SUB-Q BID 01/06/21 07/14/21 Unknown History Pantoprazole [Protonix TAB] 40 mg PO BID #60 tablet 01/08/21 07/14/21 Unknown Rx amLODIPine 10 mg PO QDAY #30 tablet 01/08/21 07/14/21 Unknown Rx Apixaban [Eliquis] 5 mg PO Q12HR #1 tablet 01/20/21 07/14/21 Unknown Rx Insulin Glargine [Lantus VIAL] 20 units SUB-Q QHS #5 pen 01/21/21 07/14/21 Unknown Rx Promethazine [Phenergan] 25 mg PO Q8HR PRN #20 tab 06/03/21 07/14/21 Unknown Rx Fluconazole [Diflucan TAB] 200 mg PO QDAY #1 tablet 07/14/21 Unknown Rx HYDROcodone/APAP 5-325 [[place] 1 - 2 each PO Q6HR PRN #10 tablet 07/14/21 Unknown Rx 5/325] Metoclopramide [Reglan] 10 mg PO TID PRN #30 tab 07/14/21 Unknown Rx Promethazine [Phenergan] 25 mg PO Q6HR PRN #20 tab 07/14/21 Unknown Rx Promethazine [Phenergan] 25 mg DE Q6HR PRN #5 supp.rect 07/14/21 Unknown Rx levoFLOXacin [Levaquin TAB] 500 mg PO QDAY #7 tablet 07/14/21 Unknown Rx oxyCODONE /ACETAMINOPHEN [Percocet 10 tab PO BID PRN 07/14/21 07/14/21 Unknown History 5/325 mg] Exam - Physical Exam Narrative exam: Morbidly obese individual lying in bed with emesis bag-slightly in distress because of abdominal pain - Constitutional Vitals: Temp Pulse Resp BP Pulse Ox 107 H 10 L 164/113 100 08/11/21 13:00 08/11/21 13:00 08/11/21 13:00 08/11/21 12:46 General appearance: Present: mild distress, well-nourished - EENT Eyes: Present: PERRL ENT: hearing intact, clear oral mucosa - Neck Neck: Present: supple, normal ROM - Respiratory Respiratory effort: normal Respiratory: bilateral: CTA - Cardiovascular Heart rate: 76 Rhythm: regular Heart Sounds: Present: S1 & S2. Absent: rub, click - Extremities Extremities: pulses symmetrical, No edema Peripheral Pulses: within normal limits - Abdominal General gastrointestinal: Present: soft, non-tender, non-distended, normal bowel sounds Localized gastrointestinal: tender: diffuse (No guarding) Female genitourinary: Present: normal - Rectal Rectal Exam: deferred - Integumentary Integumentary: Present: clear, warm, dry - Musculoskeletal Musculoskeletal: gait normal, strength equal bilaterally - Psychiatric Psychiatric: appropriate mood/affect, intact judgment & insight - Neurologic Neurologic: CNII-XII intact, moves all extremities - Allied Health Allied health notes reviewed: nursing, case management Results - Labs CBC & Chem 7: 08/11/21 10:05 08/11/21 10:05 Labs: Laboratory Last Values WBC 6.5 K/mm3 (4.5-11.0) 08/11/21 10:05 RBC 3.46 M/mm3 (3.65-5.03) L 08/11/21 10:05 Hgb 10.8 gm/dl (10.1-14.3) 08/11/21 10:05 Hct 32.7 % (30.3-42.9) 08/11/21 10:05 MCV 95 fl (79-97) 08/11/21 10:05 MCH 31 pg (28-32) 08/11/21 10:05 MCHC 33 % (30-34) 08/11/21 10:05 RDW 18.2 % (13.2-15.2) H 08/11/21 10:05 Plt Count 400 K/mm3 (140-440) 08/11/21 10:05 Lymph % (Auto) 13.4 % (13.4-35.0) 08/11/21 10:05 [place] % (Auto) 4.0 % (0.0-7.3) 08/11/21 10:05 Eos % (Auto) 0.3 % (0.0-4.3) 08/11/21 10:05 Baso % (Auto) 0.1 % (0.0-1.8) 08/11/21 10:05 Lymph # (Auto) 0.9 K/mm3 (1.2-5.4) L 08/11/21 10:05 [place] # (Auto) 0.3 K/mm3 (0.0-0.8) 08/11/21 10:05 Eos # (Auto) 0.0 K/mm3 (0.0-0.4) 08/11/21 10:05 Baso # (Auto) 0.0 K/mm3 (0.0-0.1) 08/11/21 10:05 Seg Neutrophils % 82.2 % (40.0-70.0) H 08/11/21 10:05 Seg Neutrophils # 5.3 K/mm3 (1.8-7.7) 08/11/21 10:05 Sodium 141 mmol/L (137-145) 08/11/21 10:05 Potassium 4.2 mmol/L (3.6-5.0) 08/11/21 10:05 Chloride 102.9 mmol/L (98-107) 08/11/21 10:05 Carbon Dioxide 19 mmol/L (22-30) L 08/11/21 10:05 Anion Gap 23 mmol/L 08/11/21 10:05 BUN 26 mg/dL (7-17) H 08/11/21 10:05 Creatinine 1.6 mg/dL (0.6-1.2) H 08/11/21 10:05 Estimated GFR 43 ml/min 08/11/21 10:05 BUN/Creatinine Ratio 16 % 08/11/21 10:05 Glucose 216 mg/dL (65-100) H 08/11/21 10:05 Calcium 10.5 mg/dL (8.4-10.2) H 08/11/21 10:05 Total Bilirubin 0.30 mg/dL (0.1-1.2) 08/11/21 10:05 AST 13 units/L (5-40) 08/11/21 10:05 ALT 14 units/L (7-56) 08/11/21 10:05 Alkaline Phosphatase 163 units/L (35-129) H 08/11/21 10:05 Total Protein 9.0 g/dL (6.3-8.2) H 08/11/21 10:05 Albumin 4.6 g/dL (3.9-5) 08/11/21 10:05 Albumin/Globulin Ratio 1.0 % 08/11/21 10:05 Lipase 17 units/L (13-60) 08/11/21 10:05 Short CBC 08/11/21 Range/Units 10:05 WBC 6.5 (4.5-11.0) K/mm3 Hgb 10.8 (10.1-14.3) gm/dl Hct 32.7 (30.3-42.9) % Plt Count 400 (140-440) K/mm3 BMP 08/11/21 10:05 Sodium 141 Potassium 4.2 Chloride 102.9 Carbon Dioxide 19 L BUN 26 H Creatinine 1.6 H Glucose 216 H Calcium 10.5 H Liver Function 08/11/21 Range/Units 10:05 Total Bilirubin 0.30 (0.1-1.2) mg/dL AST 13 (5-40) units/L ALT 14 (7-56) units/L Alkaline Phosphatase 163 H (35-129) units/L Albumin 4.6 (3.9-5) g/dL Assessment and Plan Advance Directives: Yes (Full code) Plan of care discussed with patient/family: Yes - Patient Problems (1) Diabetic gastroparesis Current Visit: Yes Status: Acute Plan to address problem: IV fluids, IV Zofran every 3 hours and IV Reglan, clear liquids Patient had multiple abdominal CAT scans in the last 6 years. Patient never had a nuclear medicine gastric emptying scan (2) Intractable nausea and vomiting Current Visit: Yes Status: Acute Plan to address problem: IV Zofran and IV Reglan and Phenergan suppositories per rectum IV fluids for now (3) VVII (acute kidney injury) Current Visit: No Status: Acute Plan to address problem: Vasomotor nephropathy Patient used to be on hemodialysis in the past for acute tubular necrosis Patient has AV fistula in the left arm and used to have a Vas-Cath Patient is off dialysis (4) IDDM (insulin dependent diabetes mellitus) Current Visit: Yes Status: Chronic Plan to address problem: Uncontrolled diabetes Because of intractable vomiting will hold the long-acting insulin. Patient to get frequent Accu-Cheks and coverage every 4 hours High-dose sliding scale protocol Check hemoglobin A1c (5) Hypertension Current Visit: Yes Status: Chronic Qualifiers: Hypertension type: primary hypertension Qualified Code(s): I10 - Essential (primary) hypertension Plan to address problem: Continue amlodipine and adjust medication (6) DVT prophylaxis Current Visit: No Status: Acute Plan to address problem: On anticoagulation and GI prophylaxis
[2021-08-11] MEDS ORDERED: PROMETHAZINE 25 MG RECT SUPP PR PRN (14:42)
[2021-08-11] MEDS ORDERED: SODIUM CHLORIDE 0.9% 1000 ML 1,000 ML IV SCH (14:45)
[2021-08-11] MEDS ORDERED: METOCLOPRAMIDE 10 MG/2 ML INJ IV PRN (14:45)
[2021-08-11] MEDS ORDERED: ACETAMINOPHEN 325 MG TAB PO PRN (14:45)
[2021-08-11] MEDS ORDERED: NON-FORMULARY EACH (Apixaban 5 MG Tablet) PO SCH (14:45)
[2021-08-11] MEDS: INSULIN LISPRO 100 UNIT/ML SUB-Q SCH ×3 (16:30→23:51)
[2021-08-11] MEDS: HEPARIN 5,000 UNIT/1 ML VIAL SUB-Q SCH ×2 (16:31→23:50)
[2021-08-11] MEDS: amLODIPine 10 MG TAB PO SCH (16:31)
[2021-08-11] MEDS: MORPHINE 2 MG/1 ML INJ IV PRN (16:32)
[2021-08-11] MEDS: HYDROmorphone 1 MG/1 ML INJ IV PRN ×2 (19:48→23:53)
[2021-08-11] MEDS ORDERED: hydrALAZINE 20 MG/1 ML INJ IV PRN (23:24)
[2021-08-11] MEDS: APIXABAN 5 MG TAB PO SCH (23:50)
[2021-08-12] MEDS: PANTOPRAZOLE 40 MG INJ IV SCH ×2 (01:23→15:54)
[2021-08-12] MEDS: HYDROmorphone 1 MG/1 ML INJ IV PRN ×4 (05:55→21:37)
[2021-08-12 06:20] LABS: Basophils % (Auto) 0.1 % (0.0-1.8); Eosinophils # (Auto) 0.1 K/mm3 (0.0-0.4); Eosinophils % (Auto) 1.5 % (0.0-4.3); Hematocrit 31.4 % (30.3-42.9); Hemoglobin 9.7 gm/dl (10.1-14.3); Lymphocytes # (Auto) 2.2 K/mm3 (1.2-5.4); Lymphocytes % (Auto) 34.2 % (13.4-35.0); Mean Corpuscular HGB Conc 31 % (30-34); Mean Corpuscular Volume 95 fl (79-97); Monocytes # (Auto) 0.6 K/mm3 (0.0-0.8); Platelet Count 362 K/mm3 (140-440); Red Cell Distribution Width 18.3 % (13.2-15.2)
[2021-08-12 06:27] LABS: Albumin 4.4 g/dL (3.9-5)
[2021-08-12] MEDS: INSULIN LISPRO 100 UNIT/ML SUB-Q SCH ×6 (06:42→22:04)
[2021-08-12] MEDS ORDERED: METOCLOPRAMIDE 10 MG/2 ML INJ IV PRN (09:00)
--- NOTE | 2021-08-12 09:23 | Progress Note ---
Assessment and Plan Assessment and plan: (1) Diabetic gastroparesis Current Visit: Yes Status: Acute Plan to address problem: IV fluids, IV Zofran every 3 hours and IV Reglan, clear liquids Patient had multiple abdominal CAT scans in the last 6 years. Patient never had a nuclear medicine gastric emptying scan (2) Intractable nausea and vomiting Current Visit: Yes Status: Acute Plan to address problem: IV Zofran and IV Reglan and Phenergan suppositories per rectum IV fluids for now (3) VIVI (acute kidney injury) Current Visit: No Status: Acute Plan to address problem: Vasomotor nephropathy Patient used to be on hemodialysis in the past for acute tubular necrosis Patient has AV fistula in the left arm and used to have a Vas-Cath Patient is off dialysis (4) IDDM (insulin dependent diabetes mellitus) Current Visit: Yes Status: Chronic Plan to address problem: Uncontrolled diabetes Because of intractable vomiting will hold the long-acting insulin. Patient to get frequent Accu-Cheks and coverage every 4 hours High-dose sliding scale protocol Check hemoglobin A1c (5) Hypertension Current Visit: Yes Status: Chronic Qualifiers: Hypertension type: primary hypertension Qualified Code(s): I10 - Essential (primary) hypertension Plan to address problem: Continue amlodipine and adjust medication (6) DVT prophylaxis Current Visit: No Status: Acute Plan to address problem: On anticoagulation and GI prophylaxis 08/12/21 Patient with intractable nausea and vomiting due to diabetic gastroparesis and VIVI. She is on Zofran, Promethazine, Insulin., iv fluids. Cr 1.8 today. Will repeat in am. History Interval history: Nausea and vomiting Hospitalist Physical - Physical exam Narrative exam: Gen: Not in acute distress, morbidly obese HEENT:Normocephalic,atraumatic Neck:supple, No JVD Lungs:clear to auscultation bilaterally, no wheeze Heart:S1 and S2 reg, no murmurs, rubs or gallop Abd:soft, non tender, non distended, normal bowel sounds Ext; No edema, no clubbing, no cyanosis Neuro:Awake,alert, oriented, moves all ext, - Constitutional Vitals: Temp Pulse Resp BP Pulse Ox 98.4 F 100 H 16 149/85 99 08/12/21 05:01 08/12/21 05:01 08/12/21 05:01 08/12/21 05:01 08/12/21 05:01 General appearance: Present: mild distress, well-nourished Results - Labs CBC & Chem 7: 08/12/21 04:00 08/12/21 04:00 Labs: Laboratory Last Values WBC 6.5 K/mm3 (4.5-11.0) 08/12/21 04:00 RBC 3.30 M/mm3 (3.65-5.03) L 08/12/21 04:00 Hgb 9.7 gm/dl (10.1-14.3) L 08/12/21 04:00 Hct 31.4 % (30.3-42.9) 08/12/21 04:00 MCV 95 fl (79-97) 08/12/21 04:00 MCH 30 pg (28-32) 08/12/21 04:00 MCHC 31 % (30-34) 08/12/21 04:00 RDW 18.3 % (13.2-15.2) H 08/12/21 04:00 Plt Count 362 K/mm3 (140-440) 08/12/21 04:00 Lymph % (Auto) 34.2 % (13.4-35.0) 08/12/21 04:00 [place] % (Auto) 9.0 % (0.0-7.3) H 08/12/21 04:00 Eos % (Auto) 1.5 % (0.0-4.3) 08/12/21 04:00 Baso % (Auto) 0.1 % (0.0-1.8) 08/12/21 04:00 Lymph # (Auto) 2.2 K/mm3 (1.2-5.4) 08/12/21 04:00 [place] # (Auto) 0.6 K/mm3 (0.0-0.8) 08/12/21 04:00 Eos # (Auto) 0.1 K/mm3 (0.0-0.4) 08/12/21 04:00 Baso # (Auto) 0.0 K/mm3 (0.0-0.1) 08/12/21 04:00 Seg Neutrophils % 55.2 % (40.0-70.0) 08/12/21 04:00 Seg Neutrophils # 3.6 K/mm3 (1.8-7.7) 08/12/21 04:00 Sodium 142 mmol/L (137-145) 08/12/21 04:00 Potassium 4.0 mmol/L (3.6-5.0) 08/12/21 04:00 Chloride 103.1 mmol/L (98-107) 08/12/21 04:00 Carbon Dioxide 23 mmol/L (22-30) 08/12/21 04:00 Anion Gap 20 mmol/L 08/12/21 04:00 BUN 27 mg/dL (7-17) H 08/12/21 04:00 Creatinine 1.8 mg/dL (0.6-1.2) H 08/12/21 04:00 Estimated GFR 37 ml/min 08/12/21 04:00 BUN/Creatinine Ratio 15 % 08/12/21 04:00 Glucose 138 mg/dL (65-100) H 08/12/21 04:00 POC Glucose 149 mg/dL (70-105) H 08/12/21 07:51 Hemoglobin A1c 7.1 % (4-6) H 08/12/21 05:35 Calcium 10.0 mg/dL (8.4-10.2) 08/12/21 04:00 Total Bilirubin 0.30 mg/dL (0.1-1.2) 08/12/21 04:00 AST 10 units/L (5-40) 08/12/21 04:00 ALT 9 units/L (7-56) 08/12/21 04:00 Alkaline Phosphatase 145 units/L (35-129) H 08/12/21 04:00 Total Protein 8.2 g/dL (6.3-8.2) 08/12/21 04:00 Albumin 4.4 g/dL (3.9-5) 08/12/21 04:00 Albumin/Globulin Ratio 1.2 % 08/12/21 04:00 Lipase 17 units/L (13-60) 08/11/21 10:05 Kate/IV: Voiding Method Bedside Commode Active Medications - Current Medications Current Medications: Generic Name Dose Route Start Last Admin Trade Name Freq PRN Reason Stop Dose Admin Acetaminophen 650 mg 08/11/21 14:45 Acetaminophen 325 Mg Tab PO Q4H PRN Pain MILD(1-3)/Fever >100.5/WHARTON Amlodipine Besylate 10 mg 08/11/21 16:00 08/11/21 16:31 Amlodipine 10 Mg Tab PO 10 mg QDAY ELISA Administration Apixaban 5 mg 08/11/21 22:00 08/11/21 23:50 Apixaban 5 Mg Tab PO 5 mg Q12HR ELISA Administration Hydralazine HCl 10 mg 08/11/21 23:24 08/11/21 23:52 Hydralazine 20 Mg/1 Ml Inj IV 10 mg Q4HR PRN Administration Blood Pressure Hydromorphone HCl 1 mg 08/11/21 14:45 08/12/21 05:55 Hydromorphone 1 Mg/1 Ml Inj IV 1 mg Q3H PRN Administration Pain , Severe (7-10) Sodium Chloride 1,000 mls @ 100 mls/hr 08/11/21 14:45 Nacl 0.9% 1000 Ml IV DIRECT ELISA Insulin Human Lispro 0 unit 08/11/21 15:00 08/12/21 06:43 Insulin Lispro 100 Unit/Ml SUB-Q Not Given Q4HR [facility] Protocol Metoclopramide HCl 10 mg 08/12/21 08:05 Metoclopramide 10 Mg/2 Ml Inj IV Q6H PRN Nausea And Vomiting Morphine Sulfate 2 mg 08/11/21 14:45 08/11/21 16:32 Morphine 2 Mg/1 Ml Inj IV 2 mg Q4H PRN Administration Pain, Moderate (4-6) Ondansetron HCl 4 mg 08/11/21 14:45 Ondansetron 4 Mg/2 Ml Inj IV Q3H PRN Nausea And Vomiting Pantoprazole Sodium 40 mg 08/12/21 02:00 08/12/21 01:23 Pantoprazole 40 Mg Inj IV 40 mg Q12H ELISA Administration Promethazine HCl 25 mg 08/11/21 14:42 Promethazine 25 Mg Rect Supp CA Q6H PRN Vomiting Sodium Chloride 10 ml 08/11/21 15:00 08/11/21 23:51 Sodium Chloride 0.9% 10 Ml Flush Syringe IV 10 ml BID ELISA Administration Sodium Chloride 10 ml 08/11/21 14:45 Sodium Chloride 0.9% 10 Ml Flush Syringe IV PRN PRN LINE FLUSH
[2021-08-12] MEDS: MORPHINE 2 MG/1 ML INJ IV PRN (09:54)
[2021-08-12] MEDS: APIXABAN 5 MG TAB PO SCH ×2 (09:55→21:39)
[2021-08-12] MEDS: amLODIPine 10 MG TAB PO SCH (09:55)
[2021-08-12] MEDS: METOCLOPRAMIDE 10 MG/2 ML INJ IV PRN ×2 (13:03→21:39)
[2021-08-12] MEDS: ONDANSETRON 4 MG/2 ML INJ IV PRN (18:46)
[2021-08-13] MEDS: INSULIN LISPRO 100 UNIT/ML SUB-Q SCH ×3 (02:29→10:00)
[2021-08-13] MEDS: PANTOPRAZOLE 40 MG INJ IV SCH (02:32)
[2021-08-13] MEDS: ONDANSETRON 4 MG/2 ML INJ IV PRN (08:25)
[2021-08-13] MEDS: MORPHINE 2 MG/1 ML INJ IV PRN ×2 (08:25→12:56)
[2021-08-13] MEDS: amLODIPine 10 MG TAB PO SCH (09:47)
[2021-08-13] MEDS: APIXABAN 5 MG TAB PO SCH (09:47)
[2021-08-13 10:11] LABS: Hematocrit 29.2 % (30.3-42.9); Hemoglobin 9.3 gm/dl (10.1-14.3); Mean Corpuscular HGB Conc 32 % (30-34); Mean Corpuscular Volume 94 fl (79-97); Platelet Count 311 K/mm3 (140-440); Red Cell Distribution Width 17.8 % (13.2-15.2)
[2021-08-13 10:36] LABS: Calcium 9.1 mg/dL (8.4-10.2)
--- NOTE | 2021-08-13 12:11 | Discharge Summary ---
Providers - Providers Date of Admission: 08/12/21 12:54 Date of discharge: 08/13/21 Attending physician: JOSEPH MONSON Primary care physician: [employer]ER Hospitalization Condition: Stable Hospital course: Patient is 45 yo female with history of insulin-dependent diabetes, gastroparesis, hypertension, chronic kidney disease, CHF, spinal Bifida, obesity and hypoventilation syndrome presented with vomiting of 3 days duration no associated abdominal pain. Vomiting 4-5 times a day. Food is a exacerbating factor. Not taking any food is a relieving factor. Patient states that she is compliant with her insulin. Patient is on short acting and long-acting insulin. No fever or chills. No diarrhea. Patient had a CT of the abdomen on July 14, 2021 which is near normal. Patient had about 12 CAT scans of abdomen from through July 2021. She was seen and evaluated in ED and diagnosed with another episode of diabetic gastroparesis and acute on chronic kidney disease. She was started on iv fluids, Metoclopramide and placed on observation. She improved, vomiting subsided. Creatinine improved from 1.6 on admission to 1.3 on 08/13/21. She was subsequently discharged home (1) Diabetic gastroparesis Current Visit: Yes Status: Acute Plan to address problem: IV fluids, IV Zofran every 3 hours and IV Reglan, clear liquids Patient had multiple abdominal CAT scans in the last 6 years. Patient never had a nuclear medicine gastric emptying scan (2) Intractable nausea and vomiting Current Visit: Yes Status: Acute Plan to address problem: IV Zofran and IV Reglan and Phenergan suppositories per rectum IV fluids for now (3) VIVI on chronic kidney disease Current Visit: No Status: Acute Plan to address problem: Vasomotor nephropathy Patient used to be on hemodialysis in the past for acute tubular necrosis Patient has AV fistula in the left arm and used to have a Vas-Cath Patient is off dialysis (4) IDDM (insulin dependent diabetes mellitus) Current Visit: Yes Status: Chronic Plan to address problem: Uncontrolled diabetes Because of intractable vomiting will hold the long-acting insulin. Patient to get frequent Accu-Cheks and coverage every 4 hours High-dose sliding scale protocol Check hemoglobin A1c (5) Hypertension Current Visit: Yes Status: Chronic Qualifiers: Hypertension type: primary hypertension Qualified Code(s): I10 - Essential (primary) hypertension Plan to address problem: Continue amlodipine and adjust medication (6) DVT prophylaxis Current Visit: No Status: Acute Plan to address problem: On anticoagulation and GI prophylaxis 08/12/21 Patient with intractable nausea and vomiting due to diabetic gastroparesis and VIVI. She is on Zofran, Promethazine, Insulin., iv fluids. Cr 1.8 today. 08/13/21 Patient stable to discharge home Disposition: 01 HOME / SELF CARE / HOMELESS Final Discharge Diagnosis (Prints w/discharge instructions): 1.Diabetic gastroparesis. 2.Nausea and vomiting. 3.Acute renal failure. 4.Dehydration - Discharge Diagnoses (1) Diabetic gastroparesis Status: Acute (2) Intractable nausea and vomiting Status: Acute (3) Hypertension Status: Chronic Qualifiers: Hypertension type: primary hypertension Qualified Code(s): I10 - Essential (primary) hypertension (4) IDDM (insulin dependent diabetes mellitus) Status: Chronic (5) VIVI (acute kidney injury) Status: Acute Comment: Secondary to vasomotor nephropathy Improved Core Measure Documentation - Palliative Care Palliative Care/ Comfort Measures: Not Applicable - Core Measures Any of the following diagnoses?: none Exam - Constitutional Vitals: Temp Pulse Resp BP Pulse Ox 98.3 F 93 H 18 125/70 98 08/12/21 22:13 08/12/21 22:13 08/12/21 22:13 08/12/21 22:13 08/13/21 01:00 Plan Activity: advance as tolerated Diet: low fat, low cholesterol, low salt, diabetic Plan of Treatment: 1.Follow up with PCP in 1 week Follow up with: PRIMARY CAREMD [Primary Care Provider] - 3-5 Days Prescriptions: Metoclopramide [Reglan TAB] 10 mg PO TID PRN #30 tab PRN Reason: Nausea
[2021-08-13 15:55] VITALS: BP 149/88
== END 2021-08-13 14:00 | disposition home or self-care (01) | DRG 73 ==
LOC: ED 09:21 → 3A 12:21 → OBSVTOIN 08-12 12:54
PROVIDERS: ADMIT Internal Medicine; ATTEND Internal Medicine
DX: E11.43 Type 2 diabetes mellitus with diabetic autonomic (poly)neuropathy (principal); N17.0 Acute kidney failure with tubular necrosis; K31.84 Gastroparesis; I50.9 Heart failure, unspecified; N18.9 Chronic kidney disease, unspecified; E86.0 Dehydration; I13.0 Hypertensive heart and chronic kidney disease with heart failure and stage 1 through stage 4 chronic kidney disease, or unspecified chronic kidney disease; E11.22 Type 2 diabetes mellitus with diabetic chronic kidney disease; Z68.43 Body mass index [BMI] 50.0-59.9, adult; F11.20 Opioid dependence, uncomplicated; K21.9 Gastro-esophageal reflux disease without esophagitis; G43.909 Migraine, unspecified, not intractable, without status migrainosus; Z90.49 Acquired absence of other specified parts of digestive tract; E66.01 Morbid (severe) obesity due to excess calories
CPT/HCPCS: 36415; 80048; 80053; 82962; 83036; 83690; 85025; 85027; G0378; C9113; J0360; J1170; J1200; J1644; J1815; J2270; J2405; J2765; J7030

== ENCOUNTER 2021-08-21 08:51 | Emergency (ER) | payer MEDICAID ==
[2021-08-21 08:59] VITALS: BP 153/124
[2021-08-21] MEDS ORDERED: diphenhydrAMINE 50 MG/ML VIAL IV ONE (09:09)
[2021-08-21] MEDS ORDERED: METOCLOPRAMIDE 10 MG/2 ML INJ IV ONE (09:09)
[2021-08-21] MEDS ORDERED: DICYCLOMINE 20 MG TAB PO ONE (09:09)
[2021-08-21] MEDS ORDERED: SODIUM CHLORIDE 0.9% 1000 ML 1,000 ML IV ONE (09:09)
--- NOTE | 2021-08-21 10:20 | Emergency Department Report ---
ED Abdominal Pain HPI - General Chief Complaint: Abdominal Pain Stated Complaint: ABD PAIN/VOMITING X 2 DAYS Time Seen by Provider: 08/21/21 09:04 Source: patient, EMS Mode of arrival: Stretcher Limitations: No Limitations - History of Present Illness Initial Comments: This is a 45-year-old female nontoxic, well nourished in appearance, no acute signs of distress presents to the ED with c/o of acute on chronic intermittent nausea and vomiting and abdominal pain several days. Patient stated has history of gastroparesis. Patient describes vomiting as food content and yellow gastric acid. Patient describes abdominal pain as cramping and aching with level of 8/10 diffuse. Patient denies chest pain, short of breath, fever, hemoptysis, blood in stool, chills, headache, stiff neck, numbness or tingling. Patient denies any diarrhea or constipation. Denies any blood in stool. Patient denies any recent travels. Patient stated she is compliant with her medications. MD Complaint: abdominal pain -: days(s) Location: diffuse Radiation: none Migration to: no migration Severity: mild Severity scale (0 -10): 8 Quality: cramping, aching Improves With: nothing Worsens With: nothing Associated Symptoms: nausea, vomiting. denies: diarrhea, fever, chills, constipation, dysuria, hematemesis, hematochezia, melena, hematuria, anorexia, syncope - Related Data Home Medications Medication Instructions Recorded Confirmed Last Taken Insulin NPH/Regular 10 unit SUB-Q BID 01/06/21 07/14/21 Unknown Previous Rx's Medication Instructions Recorded Last Taken Type Pantoprazole [Protonix TAB] 40 mg PO BID #60 tablet 01/08/21 Unknown Rx amLODIPine 10 mg PO QDAY #30 tablet 01/08/21 Unknown Rx Apixaban [Eliquis] 5 mg PO Q12HR #1 tablet 01/20/21 Unknown Rx Insulin Glargine [Lantus VIAL] 20 units SUB-Q QHS #5 pen 01/21/21 Unknown Rx Metoclopramide [Reglan TAB] 10 mg PO TID PRN #30 tab 08/13/21 Unknown Rx Allergies Allergy/AdvReac Type Severity Reaction Status Date / Time haloperidol [From Haldol] Allergy Unknown Verified 08/11/21 11:05 ketorolac tromethamine Allergy Unknown Verified 08/11/21 11:05 [From Toradol] meperidine HCl [From Demerol] Allergy Shortness Verified 08/11/21 11:05 of Breath Iodinated Contrast Media AdvReac Itching Verified 08/11/21 11:05 ED Review of Systems ROS: Stated complaint: ABD PAIN/VOMITING X 2 DAYS Other details as noted in HPI Comment: All other systems reviewed and negative Constitutional: denies: chills, fever Eyes: denies: eye pain, eye discharge, vision change ENT: denies: ear pain, throat pain Respiratory: denies: cough, shortness of breath, wheezing Cardiovascular: denies: chest pain, palpitations Endocrine: no symptoms reported Gastrointestinal: abdominal pain, nausea, vomiting. denies: diarrhea, constipation, hematemesis, melena, hematochezia Genitourinary: denies: urgency, dysuria, discharge Musculoskeletal: denies: back pain, joint swelling, arthralgia Skin: denies: rash, lesions Neurological: denies: headache, weakness, paresthesias Psychiatric: denies: anxiety, depression Hematological/Lymphatic: denies: easy bleeding, easy bruising ED Past Medical Hx - Past Medical History Previous Medical History?: Yes Hx Hypertension: Yes (Hospitalized in hypertensive crisis 08/28/18) Hx CVA: No Hx Congestive Heart Failure: No Hx Diabetes: Yes Hx Deep Vein Thrombosis: Yes Hx Pulmonary Embolism: Yes (December 2020) Hx GERD: Yes Hx Renal Disease: Yes Hx Arthritis: Yes (All joints) Hx Headaches / Migraines: Yes (Migraines) Hx Psychiatric Treatment: No Hx Asthma: Yes (no recent albuterol use) Hx COPD: No Hx HIV: No Additional medical history: spina bifida, Gastroparesis. 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, - Social History Smoking Status: Never Smoker Substance Use Type: None (Denies illicit drug use) - Medications Home Medications: Home Medications Medication Instructions Recorded Confirmed Last Taken Type Insulin NPH/Regular 10 unit SUB-Q BID 01/06/21 07/14/21 Unknown History Pantoprazole [Protonix TAB] 40 mg PO BID #60 tablet 01/08/21 07/14/21 Unknown Rx amLODIPine 10 mg PO QDAY #30 tablet 01/08/21 07/14/21 Unknown Rx Apixaban [Eliquis] 5 mg PO Q12HR #1 tablet 01/20/21 07/14/21 Unknown Rx Insulin Glargine [Lantus VIAL] 20 units SUB-Q QHS #5 pen 01/21/21 07/14/21 Unknown Rx Metoclopramide [Reglan TAB] 10 mg PO TID PRN #30 tab 08/13/21 Unknown Rx ED Physical Exam - General Limitations: No Limitations General appearance: alert, in no apparent distress - Head Head exam: Present: atraumatic, normocephalic - Eye Eye exam: Present: normal appearance - Neck Neck exam: Present: normal inspection, full ROM. Absent: lymphadenopathy - Respiratory Respiratory exam: Present: normal lung sounds bilaterally. Absent: respiratory distress, wheezes, rales, rhonchi, stridor, chest wall tenderness, accessory muscle use, decreased breath sounds, prolonged expiratory - Cardiovascular Cardiovascular Exam: Present: normal rhythm, tachycardia, normal heart sounds. Absent: irregular rhythm, systolic murmur, diastolic murmur, rubs, gallop - GI/Abdominal GI/Abdominal exam: Present: soft, tenderness (diffuse), normal bowel sounds. Absent: distended, guarding, rebound, rigid, diminished bowel sounds - Extremities Exam Extremities exam: Present: normal inspection, full ROM - Back Exam Back exam: Present: normal inspection, full ROM. Absent: tenderness, CVA tenderness (R), CVA tenderness (L), muscle spasm, paraspinal tenderness, vertebral tenderness, rash noted - Neurological Exam Neurological exam: Present: alert, oriented X3, normal gait - Psychiatric Psychiatric exam: Present: normal affect, normal mood - Skin Skin exam: Present: warm, dry, intact, normal color. Absent: rash ED Course Vital Signs 08/21/21 08:58 Temperature 98.3 F Pulse Rate 108 H Respiratory 16 Rate Blood Pressure 153/124 [Right] O2 Sat by Pulse 100 Oximetry - Reevaluation(s) Reevaluation #1: 08/21/21 10:27 Patient is speaking in full sentences with no signs of distress noted. ED Medical Decision Making - Medical Decision Making This is a 45-year-old female that presents with abdominal pain with n/v. Patient is stable and was examined by me. Labs ordered and treatment order. IV team has been calling due to unable to get a IV line in. Patient stated she wants to leave even after patient was educated and instructed of my concerns and further evaluation and treatment but patient still refused and stated will sign AGAINST MEDICAL ADVICE. Patient was instructed and educated of complications such as disability and or but patient still refused as per RN, patient walked out without signing AMA note. Patient was instructed to follow-up with a primary care doctor in as soon as possible or if symptoms worsen and continue return to emergency room as soon as possible. Patient before taking her discharge packet or referral. Critical care attestation.: If time is entered above; I have spent that time in minutes in the direct care of this critically ill patient, excluding procedure time. ED Disposition Clinical Impression: Abdominal pain Qualifiers: Abdominal location: generalized Qualified Code(s): R10.84 - Generalized abdominal pain Nausea & vomiting Qualifiers: Vomiting type: unspecified Vomiting Intractability: non-intractable Qualified Code(s): R11.2 - Nausea with vomiting, unspecified Disposition: 07 LEFT WITHOUT BEING SEEN Is pt being admited?: No Does the pt Need Aspirin: No Condition: Undetermined Instructions: Abdominal Pain (ED) Referrals: PRIMARY CARE, [Primary Care Provider] - 3-5 Days Time of Disposition: 10:32
[2021-08-21] MEDS ORDERED: ONDANSETRON 4 MG ODT TAB PO ONE (10:26)
== END 2021-08-21 10:47 | disposition left against medical advice (07) ==
LOC: ED 08:51
DX: R10.84 Generalized abdominal pain (principal); R11.2 Nausea with vomiting, unspecified; I10 Essential (primary) hypertension; E11.9 Type 2 diabetes mellitus without complications; M19.90 Unspecified osteoarthritis, unspecified site; K21.9 Gastro-esophageal reflux disease without esophagitis; G43.909 Migraine, unspecified, not intractable, without status migrainosus; J45.909 Unspecified asthma, uncomplicated; Z90.49 Acquired absence of other specified parts of digestive tract; Z88.8 Allergy status to other drugs, medicaments and biological substances; Z79.899 Other long term (current) drug therapy
CPT/HCPCS: 99282; J1200; J2765; J7030